=== PATIENT | female | born 1965 | race Caucasian/White ===

== ENCOUNTER 2016-10-06 08:53 | Emergency (ER) | payer MEDICAID ==
[2016-10-06 09:05] VITALS: BP 100/75
--- NOTE | 2016-10-06 10:44 | EDM.PDOC ---
ED HPI Trauma - General Chief Complaint: Lower Extremity Injury/Pain Stated Complaint: RT ANKLE/FOOT INJURY Time Seen by Provider: 10/06/16 09:10 Source: Reports: Patient, RN notes reviewed - History of Present Illness INITIAL COMMENTS - FREE TEXT/NARRATIVE: 51-year-old lady fell 2 days ago injuring her right foot and ankle. She's had swelling and pain at the lateral aspect of her foot and ankle. No significant pain at rest but she does have major discomfort with any type of weightbearing. She states that she does use a wheelchair much of the time. She also does have a walker that she does use for getting into and out of the bathroom. She denies head neck chest hip or other major injury or discomfort from this fall. Allergies/ADRs: Allergies baclofen Allergy (Verified 10/06/16 09:05) Itching cefixime [From Suprax] Allergy (Verified 10/06/16 09:05) Itching Home Medications: Ambulatory Orders Aspirin [Adult Low Dose Aspirin EC] 81 mg PO DAILY 07/22/15 [Confirmed 10/06/16] HYDROmorphone HCl [Dilaudid] 2 - 4 mg PO Q4H PRN 07/22/15 [Confirmed 10/06/16] Levothyroxine Sodium [Synthroid] 175 mcg PO DAILY 07/22/15 [Confirmed 10/06/16] traZODone 50 - 100 mg PO BEDTIME PRN 07/22/15 [Confirmed 10/06/16] Topiramate [Topamax] 25 mg PO BEDTIME #30 tablet 07/25/15 [Confirmed 10/06/16] Pramipexole [Mirapex] 1 tab PO DAILY 09/08/16 [Confirmed 10/06/16] Pregabalin [Lyrica] 150 mg PO TID 09/08/16 [Confirmed 10/06/16] Phenazopyridine [Pyridium] 100 mg PO TID #6 tablet 09/13/16 [Confirmed 10/06/16] Past Medical History Cardiovascular History: Reports: Hypertension Genitourinary History: Reports: Neurogenic bladder, 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 Most recent back surgery was in March of 2015. Pt has some post surgical complications with numbness and tingling in lower legs and unable to ambulate unless she is using a walker Neurological History: Reports: Other (see below) Other Neuro History: recent r/o meningitis from 1 MD and she states another told her that she had a stroke. Psychiatric History: Reports: Anxiety, Depression Other Psychiatric History: pt states that she feels like depression could be setting in. She states that she has had multiple medical problems this year, Denies any thoughts to hurt or harm herself Endocrine/Metabolic History: Reports: Hypothyroidism - Infectious Disease History Infectious Disease History: Reports: Chicken pox - Past Surgical History HEENT Surgical History: Reports: Tonsillectomy Social & Family History - Tobacco Use Smoking Status *Q: Current Every Day Smoker Years of Tobacco use: 25 Packs/Tins Daily: 0.5 Second Hand Smoke Exposure: No - Caffeine Use Caffeine Use: Reports: Coffee, Soda - Alcohol Use Days Per Week of Alcohol Use: 0 - Recreational Drug Use Recreational Drug Use: No - Living Situation & Occupation Occupation: disabled Review of Systems - Review of Systems Review Of Systems: See Below Constitutional: Reports: no symptoms Eyes: Reports: no symptoms Ears: Reports: no symptoms Nose: Reports: no symptoms Mouth/Throat: Reports: no symptoms Respiratory: Denies: shortness of breath Cardiovascular: Denies: chest pain GI/Abdominal: Denies: Abdominal pain, Nausea, Vomiting Musculoskeletal: Reports: foot pain (right-sided), joint pain (right ankle). Denies: neck pain, shoulder pain Neurological: Reports: difficulty walking (2 pain right ankle and right foot with weight-bearing) Trauma Exam - Physical Exam Exam: See Below General Appearance: Reports: alert, no apparent distress Head: Reports: atraumatic Eyes: bilateral eye: PERRL Ears: Reports: normal external exam Nose: Reports: normal inspection Throat/Mouth: Reports: Normal inspection Neck: Reports: full range of motion Respiratory Exam: Reports: no respiratory distress, lungs clear, normal breath sounds Cardiovascular: Reports: regular rate, rhythm Extremities: Reports: bony-point tenderness (lateral aspect of right ankle and right foot), pedal edema (there is swelling of the right foot and right ankle), other (no visible deformity) Skin: Reports: Normal color, Warm/dry ED TRAUMA EXTREMITY PROCEDURES - Splinting Right Lower Extremity Splint site: short leg right lower extremity Pre-procedure NV status: normal Post-procedure NV status: normal Splint material: fiberglass Splint design: posterior Applied & form fitted by: provider Provider post-splint application NV check: NV status normal Course - Vital Signs Last Recorded V/S: Last Vital Signs Temp 97.7 F 10/06/16 09:02 Pulse 105 H 10/06/16 09:02 Resp 16 10/06/16 09:02 BP 100/75 10/06/16 09:02 Pulse Ox 95 10/06/16 09:02 - Re-Assessments/Exams Free Text/Narrative Re-Assessment/Exam: 10/06/16 10:34x-rays of the foot are fine, x-rays of the ankle do show a hairline fracture of the distal fibula on the anterior view only, nondisplaced Departure - Departure Time of Disposition: 10:45 Disposition: Home, Self-Care 01 Condition: fair Clinical Impression: Fracture of fibula Instructions: Fibular Ankle Fracture Treated With or Without Immobilization, Adult Referrals: Chyna Guillory DO [Primary Care Provider] - Forms: ED Department Discharge Additional Instructions: you have a fracture of your distal fibula right ankle. fiberglass splint, continue to use wheelchair as much as possible, continue to use walker when getting to and from the bathroom, see Dr. Herrera Orthopedist for followup early next week, call [phone] today for appointment early next week, keep leg and foot elevated as much as possible as discussed and demonstrated
--- NOTE | 2016-10-06 15:33 | CR ---
Right foot: Four views of the right foot were obtained. Small plantar spur is again noted. Bony structures appear osteoporotic. Soft tissue swelling is noted. No fracture is appreciated within the right foot. Impression: 1. Soft tissue swelling. Incidental plantar spur. 2. No acute fracture or other abnormality is seen within the right foot. Diagnostic code #2
--- NOTE | 2016-10-06 15:33 | CR ---
Right ankle: Four views of the right ankle were obtained. Comparison: No previous ankle study. Fracture is identified within the lateral malleolus. Alignment is close to anatomic. Soft tissue swelling is noted. Bony structures are osteoporotic. Small plantar spur is seen. Impression: 1. Essentially nondisplaced lateral malleolar fracture. 2. Other findings as described above. Diagnostic code #3
== END 2016-10-06 11:20 | disposition home or self-care (01) ==
LOC: JD.ED 08:53
DX: S82.64XA Nondisplaced fracture of lateral malleolus of right fibula, initial encounter for closed fracture (principal); F32.9 Major depressive disorder, single episode, unspecified; F41.9 Anxiety disorder, unspecified; E03.9 Hypothyroidism, unspecified; F17.210 Nicotine dependence, cigarettes, uncomplicated; Z79.82 Long term (current) use of aspirin; Z79.899 Other long term (current) drug therapy; Z88.8 Allergy status to other drugs, medicaments and biological substances; Z98.890 Other specified postprocedural states; W19.XXXA Unspecified fall, initial encounter
CPT/HCPCS: 29515; 73610-26-RT; 73610-RT; 73630-26-RT; 73630-RT; 99283-25

== ENCOUNTER 2016-10-18 14:36 | Emergency (ER) | payer MEDICAID ==
--- NOTE | 2016-10-18 15:31 | EDM.PDOC ---
ED HPI RENAL/ - General Chief Complaint: Genitourinary Problem Stated Complaint: CARTER CATHETER CAME OUT Time Seen by Provider: 10/18/16 15:18 Source of Information: Reports: Patient History Limitations: Reports: No limitations - History of Present Illness INITIAL COMMENTS - FREE TEXT/NARRATIVE: Patient is a 51-year-old female who presents to the ED wishing to have the Carter catheter reinserted. Patient states she has a indwelling carter catheter due to incomplete bladder emptying and recurrent UTI's secondary to neurogenic bladder. This all started from complicated lumbar and thoracic back surgeries. States the Carter catheter accidentally fell out today. She denies any symptoms associated with UTI. She is scheduled to have suprapubic catheter placed November 01, 2016. - Related Data Allergies/ADRs: Allergies Allergy/AdvReac Type Severity Reaction Status Date / Time baclofen Allergy Itching Verified 10/18/16 14:50 cefixime [From Suprax] Allergy Itching Verified 10/18/16 14:50 Home Meds: Home Meds Aspirin [Adult Low Dose Aspirin EC] 81 mg PO DAILY 07/22/15 [History] HYDROmorphone HCl [Dilaudid] 2 - 4 mg PO Q4H PRN 07/22/15 [History] Levothyroxine Sodium [Synthroid] 175 mcg PO DAILY 07/22/15 [History] traZODone 50 - 100 mg PO BEDTIME PRN 07/22/15 [History] Topiramate [Topamax] 25 mg PO BEDTIME #30 tablet 07/25/15 [Rx] Pramipexole [Mirapex] 1 tab PO DAILY 09/08/16 [History] Pregabalin [Lyrica] 150 mg PO TID 09/08/16 [History] Phenazopyridine [Pyridium] 100 mg PO TID #6 tablet 09/13/16 [Rx] Past Medical History Cardiovascular History: Reports: Hypertension Genitourinary History: Reports: Neurogenic bladder, UTI, recurrent 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 Most recent back surgery was in March of 2015. Pt has some post surgical complications with numbness and tingling in lower legs and unable to ambulate unless she is using a walker Neurological History: Reports: Other (see below) Other Neuro History: recent r/o meningitis from 1 MD and she states another told her that she had a stroke. Psychiatric History: Reports: Anxiety, Depression Other Psychiatric History: pt states that she feels like depression could be setting in. She states that she has had multiple medical problems this year, Denies any thoughts to hurt or harm herself Endocrine/Metabolic History: Reports: Hypothyroidism - Infectious Disease History Infectious Disease History: Reports: Chicken pox - Past Surgical History HEENT Surgical History: Reports: Tonsillectomy Social & Family History - Tobacco Use Smoking Status *Q: Current Every Day Smoker Years of Tobacco use: 25 Packs/Tins Daily: 0.5 Second Hand Smoke Exposure: No - Caffeine Use Caffeine Use: Reports: Coffee, Soda - Alcohol Use Days Per Week of Alcohol Use: 0 - Recreational Drug Use Recreational Drug Use: No - Living Situation & Occupation Occupation: disabled ED ROS GENERAL - Review of Systems Review Of Systems: See Below Constitutional: Denies: fever, chills, malaise, weakness, fatigue GI/Abdominal: Denies: Abdominal pain, Nausea, Vomiting : Reports: urinary retention. Denies: pain ED EXAM, RENAL/ - Physical Exam Exam: See Below Exam Limited By: No limitations General Appearance: alert, WD/WN, no apparent distress Ears: hearing grossly normal Nose: normal inspection Throat/Mouth: Normal voice, No airway compromise Neck: normal inspection, supple Respiratory/Chest: no respiratory distress, lungs clear, normal breath sounds Cardiovascular: normal peripheral pulses, regular rate, rhythm GI/Abdominal: normal bowel sounds, soft, non tender, no organomegaly, no distention (Female) Exam: Deferred, Other (Patient wearing a diaper with dislodge carter catheter within the diaper. Leg bag attached to left lower leg.) Rectal (Female) Exam: Deferred Back Exam: normal inspection. No: CVA tenderness (L), CVA tenderness (R) Neurological: alert, oriented, CN II-XII intact, normal cognition, no motor/ sensory deficits Psychiatric: normal affect, normal mood Skin Exam: Warm, Dry, Intact, Normal color Course - Vital Signs Last Recorded V/S: Last Vital Signs Temp 98.4 F 10/18/16 16:44 Pulse 122 H 10/18/16 16:44 Resp 16 10/18/16 16:44 BP 101/56 L 10/18/16 16:44 Pulse Ox 98 10/18/16 16:44 - Orders/Labs/Meds Orders: Active Orders 24 hr Category Date Time Status Carter Catheter Insertion [Insert Urinary Catheter] [OM. Care 10/18/16 15:24 Ordered PC] Stat Urinary Catheter Assessment [RC] ASDIRECTED Care 10/18/16 15:25 Active - Re-Assessments/Exams Free Text/Narrative Re-Assessment/Exam: Ordered for reinsertion of indwelling Carter catheter to leg bag. Carter catheter was placed with no complications. Will discharge patient home with instructions as documented. Departure - Departure Time of Disposition: 15:29 Disposition: Home, Self-Care 01 Condition: good Clinical Impression: Neurogenic bladder disorder Dislodged Carter catheter Qualifiers: Encounter type: initial encounter Qualified Code(s): T83.021A - Displacement of indwelling urethral catheter, initial encounter Instructions: Carter Catheter Care, Adult Referrals: Chyna Guillory DO [Primary Care Provider] - Forms: ED Department Discharge Additional Instructions: Please keep appointment with urology for suprapubic catheter placement October. Return back to the ED if you develop any new or worsening symptoms. - My Orders Last 24 Hours: My Active Orders 10/18/16 15:24 Carter Catheter Insertion [Insert Urinary Catheter] [OM.PC] Stat 10/18/16 15:25 Urinary Catheter Assessment [RC] ASDIRECTED - Assessment/Plan Last 24 Hours: My Active Orders 10/18/16 15:24 Carter Catheter Insertion [Insert Urinary Catheter] [OM.PC] Stat 10/18/16 15:25 Urinary Catheter Assessment [RC] ASDIRECTED
[2016-10-18 16:46] VITALS: BP 101/56
== END 2016-10-18 16:40 | disposition home or self-care (01) ==
LOC: JD.ED 14:36
DX: T83.021A Displacement of indwelling urethral catheter, initial encounter (principal); N31.9 Neuromuscular dysfunction of bladder, unspecified; I10 Essential (primary) hypertension; F41.8 Other specified anxiety disorders; E03.9 Hypothyroidism, unspecified; F17.210 Nicotine dependence, cigarettes, uncomplicated; Z98.890 Other specified postprocedural states; Z79.82 Long term (current) use of aspirin; Z79.899 Other long term (current) drug therapy; Z88.1 Allergy status to other antibiotic agents; Z88.8 Allergy status to other drugs, medicaments and biological substances
CPT/HCPCS: 51702; 99282; 99283-25

== ENCOUNTER 2017-01-15 20:59 | Emergency (ER) | payer MEDICAID, OTHER ==
--- NOTE | 2017-01-15 21:46 | EDM.PDOC ---
ED HPI GENERAL MEDICAL PROBLEM - General Chief Complaint: Lower Extremity Injury/Pain Stated Complaint: POSSIBLE RIGHT BROKEN FOOT Time Seen by Provider: 01/15/17 21:35 Source of Information: Reports: Patient History Limitations: Reports: No Limitations - History of Present Illness INITIAL COMMENTS - FREE TEXT/NARRATIVE: Patient is a 51-year-old female presents to the ED complaining of right foot/ ankle pain. Patient states while walking her leg gave out she fell landing on her right foot. Her right foot was bent backwards. Pain is located in the top of her foot and also lateral/medial malleolus. Currently experiencing spasms to her right lower leg. The pain is moderate intensity. There is some mild swelling present. Patient had a back surgery in 2015 due to infection. Patient has difficulty with urinating and also with ambulating. Legs apparently give out regularly. She utilizes a walker and/or a cane. Patient had a similar injury this past September to the same foot . X-rays were obtained at that time with fractures present.Patient denies CP, SOB, LOC, head/neck pain, or new pain to her back, or any additional complaints. Right Feet Pain Score (Numeric/FACES): 10 - Related Data Allergies Allergy/AdvReac Type Severity Reaction Status Date / Time baclofen Allergy Itching Verified 10/18/16 14:50 cefixime [From Suprax] Allergy Itching Verified 10/18/16 14:50 Home Meds: Home Meds HYDROmorphone HCl [Dilaudid] 4 mg PO Q4H 07/22/15 [History] Levothyroxine Sodium [Synthroid] 175 mcg PO DAILY 07/22/15 [History] traZODone 50 - 100 mg PO BEDTIME PRN 07/22/15 [History] Topiramate [Topamax] 25 mg PO BEDTIME #30 tablet 07/25/15 [Rx] Pregabalin [Lyrica] 150 mg PO TID 09/08/16 [History] Past Medical History Cardiovascular History: Reports: Hypertension Genitourinary History: Reports: Neurogenic 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 Most recent back surgery was in March of 2015. Pt has some post surgical complications with numbness and tingling in lower legs and unable to ambulate unless she is using a walker Neurological History: Reports: Other (See Below) Other Neuro History: recent r/o meningitis from 1 MD and she states another told her that she had a stroke. Psychiatric History: Reports: Anxiety, Depression Other Psychiatric History: pt states that she feels like depression could be setting in. She states that she has had multiple medical problems this year, Denies any thoughts to hurt or harm herself Endocrine/Metabolic History: Reports: Hypothyroidism - Infectious Disease History Infectious Disease History: Reports: Chicken Pox - Past Surgical History HEENT Surgical History: Reports: Tonsillectomy Social & Family History - Tobacco Use Smoking Status *Q: Current Every Day Smoker Years of Tobacco use: 25 Packs/Tins Daily: 0.5 Second Hand Smoke Exposure: No - Caffeine Use Caffeine Use: Reports: Coffee, Soda - Alcohol Use Days Per Week of Alcohol Use: 0 - Recreational Drug Use Recreational Drug Use: No - Living Situation & Occupation Occupation: Disabled Review of Systems - Review of Systems Review Of Systems: ROS reveals no pertinent complaints other than HPI. ED EXAM, GENERAL - Physical Exam Exam: See Below Exam Limited By: No Limitations General Appearance: Alert, WD/WN, Mild Distress Eye Exam: Bilateral Eye: PERRL Ears: Hearing Grossly Normal Nose: Normal Inspection Throat/Mouth: Normal Voice, No Airway Compromise Neck: Normal Inspection, Supple Respiratory/Chest: No Respiratory Distress, No Accessory Muscle Use Cardiovascular: Normal Peripheral Pulses, Regular Rate, Rhythm Peripheral Pulses: 2+: Radial (R) Extremities: Other (mild swelling noted to the dorsal aspect of her right foot and lateral ankle. mild increased pain with palpation. No sensory deficits noted. Leg is intermittent spasm. No pain with palpation of the tibia fibula, knee, leg, and pelvis.) Neurological: Alert, Oriented, Normal Cognition, No Motor/Sensory Deficits Psychiatric: Normal Affect, Normal Mood Skin Exam: Warm, Dry, Intact, Normal Color Course - Vital Signs Last Recorded V/S: Last Vital Signs Temp 97.9 F 01/15/17 21:42 Pulse 95 01/15/17 21:42 Resp 20 01/15/17 21:42 BP 101/64 01/15/17 21:42 Pulse Ox 96 01/15/17 21:42 - Orders/Labs/Meds Orders: Active Orders 24 hr Category Date Time Status Ankle Min 3V Rt [CR] Stat Exams 01/15/17 21:42 Taken Meds: Medications Discontinued Medications Generic Name Dose Route Start Last Admin Trade Name Delta PRN Reason Stop Dose Admin Diazepam 2.5 mg 01/15/17 21:42 01/15/17 21:50 Valium IM 01/15/17 21:43 2.5 mg ONETIME ONE Administration Diazepam 2.5 mg 01/15/17 22:48 01/15/17 22:53 Valium IM 01/15/17 22:49 2.5 mg ONETIME ONE Administration - Re-Assessments/Exams Free Text/Narrative Re-Assessment/Exam: Ordered x-ray of the foot, ankle, and also by a 2.5 mg IM to reduce spasms. X-ray of the right foot/ankle revealed osteopenic bones with multiple questionable areas for fractures. [facility] will interpret. 01/15/17 22:52 Per nursing, spasms have decreased but not completely resolved. Ordered valium 2.5mg IM. [facility] interpretation is pending. x-ray of right foot impression: No acute findings. X-ray of the right ankle impression:non displaced fractures through the medial and lateral malleoli. Posterior splint applied with no complications. Patient has a wheel chair at home will discharge with instructions as documented. Departure - Departure Time of Disposition: 23:50 Disposition: Home, Self-Care 01 Condition: good Clinical Impression: Fracture, ankle closed, bimalleolar Qualifiers: Encounter type: initial encounter Laterality: right Qualified Code(s): S82.841A - Displaced bimalleolar fracture of right lower leg, initial encounter for closed fracture - Discharge Information Instructions: Ankle Fracture Referrals: PCP,None [Primary Care Provider] - Jakob Knight MD [Physician] - Forms: ED Department Discharge Additional Instructions: No weight placement on the affected ankle. Leave splint in place until evaluated by Dr. Knight orthopedic surgeon communication signals intelligence. Call and make an appointment Tuesday to be seen in one week. Elevate when able to reduce swelling and pain. Take Tylenol and ibuprofen in alternating fashion for discomfort. Take all your home medications as prescribed. Place ice to the affected ankle 4 -6 times daily, 20 minutes in duration, do not apply ice directly on the skin. Return to ED for any new or worsening symptoms. - My Orders Last 24 Hours: My Active Orders 01/15/17 21:42 Ankle Min 3V Rt [CR] Stat - Assessment/Plan Last 24 Hours: My Active Orders 01/15/17 21:42 Ankle Min 3V Rt [CR] Stat
[2017-01-15 21:47] VITALS: BP 101/64
--- NOTE | 2017-01-17 11:13 | CR ---
Right ankle: Three views of the right ankle were obtained. Comparison: Previous right ankle study of 10/06/16. Lateral malleolus fracture is seen. This is fairly similar to prior exam and uncertain if this represents refracturing or nonbridging callus. Soft tissue swelling is seen. Slight irregularity is seen within the medial malleolus which is an interval change from prior exam presumably representing nondisplaced medial malleolus fracture. Bony structures are osteopenic. Soft tissue swelling is noted. Impression: 1. Lateral malleolus fracture appearing fairly stable from prior study with discussion as noted above. 2. Possible nondisplaced medial malleolus fracture. 3. Other incidental findings. Diagnostic code #3 Agree with preliminary report issued by [facility] ([facility] preliminary report dictated on 01/16/17, 12:22 AM Central Time)
--- NOTE | 2017-01-17 11:13 | CR ---
Right foot: Two views of the right foot were obtained. Comparison: Previous right foot study of 10/06/16. Plantar spur is seen. Diffuse soft tissue swelling is noted. Bony structures are osteoporotic. Slight joint space narrowing is noted within the midfoot. No acute fracture or dislocation is seen. Mild joint space narrowing also noted within the first MTP joint. Impression: 1. Soft tissue swelling and other incidental findings. No acute bony abnormality is identified. Diagnostic code #2 Agree with preliminary report issued by [facility] ([facility] preliminary report dictated on 01/15/17, 11:57 PM Central Time)
== END 2017-01-16 00:05 | disposition home or self-care (01) ==
LOC: JD.ED 20:59
DX: S82.841A Displaced bimalleolar fracture of right lower leg, initial encounter for closed fracture (principal); I10 Essential (primary) hypertension; F41.9 Anxiety disorder, unspecified; F32.9 Major depressive disorder, single episode, unspecified; F17.210 Nicotine dependence, cigarettes, uncomplicated; E03.9 Hypothyroidism, unspecified; Z98.890 Other specified postprocedural states; Z79.899 Other long term (current) drug therapy; Z88.1 Allergy status to other antibiotic agents; Z88.8 Allergy status to other drugs, medicaments and biological substances; W19.XXXA Unspecified fall, initial encounter
CPT/HCPCS: 29515; 73610; 73620; 96372; 99283; J3360

== ENCOUNTER 2017-02-25 09:26 | Emergency (ER) | payer MEDICAID ==
[2017-02-25 09:39] VITALS: BP 121/81
--- NOTE | 2017-02-25 10:27 | EDM.PDOC ---
ED HPI GENERAL MEDICAL PROBLEM - General Chief Complaint: Genitourinary Problem Stated Complaint: CATHETER CAME OUT Time Seen by Provider: 02/25/17 09:58 Source of Information: Reports: Patient History Limitations: Reports: No Limitations - History of Present Illness INITIAL COMMENTS - FREE TEXT/NARRATIVE: The patient is a 51-year-old female with a history of an indwelling suprapubic catheter for neurogenic bladder presents to the emergency department after her catheter fell out. She states that the catheter was just replaced about a week ago at clinic. She hasn't had any trouble with it. Today it just fell out. Appears maybe the balloon was defective. No fever. No recent illness. No additional complaints. No pain. - Related Data Allergies Allergy/AdvReac Type Severity Reaction Status Date / Time baclofen Allergy Itching Verified 10/18/16 14:50 cefixime [From Suprax] Allergy Itching Verified 10/18/16 14:50 Home Meds: Home Meds HYDROmorphone HCl [Dilaudid] 4 mg PO Q4H 07/22/15 [History] Levothyroxine Sodium [Synthroid] 175 mcg PO DAILY 07/22/15 [History] traZODone 50 - 100 mg PO BEDTIME PRN 07/22/15 [History] Topiramate [Topamax] 25 mg PO BEDTIME #30 tablet 07/25/15 [Rx] Pregabalin [Lyrica] 150 mg PO TID 09/08/16 [History] Pramipexole Di-HCl [Pramipexole ER] 2.25 mg PO 5XDAY 02/25/17 [History] Past Medical History Cardiovascular History: Reports: Hypertension Genitourinary History: Reports: Neurogenic Bladder, UTI, Recurrent Other Genitourinary History: 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 Most recent back surgery was in March of 2015. Pt has some post surgical complications with numbness and tingling in lower legs and unable to ambulate unless she is using a walker Neurological History: Reports: Other (See Below) Other Neuro History: recent r/o meningitis from 1 MD and she states another told her that she had a stroke. Psychiatric History: Reports: Anxiety, Depression Other Psychiatric History: pt states that she feels like depression could be setting in. She states that she has had multiple medical problems this year, Denies any thoughts to hurt or harm herself Endocrine/Metabolic History: Reports: Hypothyroidism - Infectious Disease History Infectious Disease History: Reports: Chicken Pox - Past Surgical History HEENT Surgical History: Reports: Tonsillectomy Social & Family History - Tobacco Use Smoking Status *Q: Current Every Day Smoker Years of Tobacco use: 30 Packs/Tins Daily: 1 Second Hand Smoke Exposure: No - Caffeine Use Caffeine Use: Reports: Coffee - Alcohol Use Days Per Week of Alcohol Use: 0 - Recreational Drug Use Recreational Drug Use: No - Living Situation & Occupation Occupation: Disabled ED ROS GENERAL - Review of Systems Review Of Systems: See Below Constitutional: Denies: Fever GI/Abdominal: Denies: Abdominal Pain : Denies: Flank Pain ED EXAM, RENAL/ - Physical Exam Exam: See Below Exam Limited By: No Limitations General Appearance: Alert, WD/WN, No Apparent Distress Ears: Normal External Exam Throat/Mouth: Normal Inspection, Normal Voice Head: Atraumatic, Normocephalic Neck: Normal Inspection Respiratory/Chest: No Respiratory Distress GI/Abdominal: Soft, Non-Tender, No Distention, Other (Suprapubic catheter site is clean, dry, intact) Course - Vital Signs Last Recorded V/S: Last Vital Signs Temp 36.4 C 02/25/17 09:35 Pulse 79 02/25/17 09:35 Resp 18 02/25/17 09:35 BP 121/81 02/25/17 09:38 Pulse Ox 97 02/25/17 09:35 - Orders/Labs/Meds Orders: Active Orders 24 hr Category Date Time Status Dixon Catheter Insertion [Insert Urinary Catheter] [OM. Care 02/25/17 10:30 Ordered PC] Q24H Urinary Catheter Assessment [RC] ASDIRECTED Care 02/25/17 10:22 Active - Re-Assessments/Exams Free Text/Narrative Re-Assessment/Exam: 02/25/17 10:26 Nursing staff here to replace suprapubic catheter. Departure - Departure Time of Disposition: 10:26 Disposition: Home, Self-Care 01 Clinical Impression: Urinary catheter change required Dixon catheter problem Qualifiers: Encounter type: initial encounter Qualified Code(s): T83.9XXA - Unspecified complication of genitourinary prosthetic device, implant and graft, initial encounter - Discharge Information Instructions: Dixon Catheter Care, Adult Referrals: Chyna Guillory DO [Primary Care Provider] - Forms: ED Department Discharge Additional Instructions: 1. Follow-up with your clinic provider as needed 2. Return to the emergency department for abdominal pain, fever, or other concerning symptoms - My Orders Last 24 Hours: My Active Orders 02/25/17 10:22 Urinary Catheter Assessment [RC] ASDIRECTED 02/25/17 10:30 Dixon Catheter Insertion [Insert Urinary Catheter] [OM.PC] Q24H - Assessment/Plan Last 24 Hours: My Active Orders 02/25/17 10:22 Urinary Catheter Assessment [RC] ASDIRECTED 02/25/17 10:30 Dixon Catheter Insertion [Insert Urinary Catheter] [OM.PC] Q24H
== END 2017-02-25 10:44 | disposition home or self-care (01) ==
LOC: JD.ED 09:26
DX: Z46.6 Encounter for fitting and adjustment of urinary device (principal); I10 Essential (primary) hypertension; F41.9 Anxiety disorder, unspecified; F32.9 Major depressive disorder, single episode, unspecified; E03.9 Hypothyroidism, unspecified; F17.210 Nicotine dependence, cigarettes, uncomplicated; Z87.440 Personal history of urinary (tract) infections; Z88.8 Allergy status to other drugs, medicaments and biological substances; Z79.899 Other long term (current) drug therapy; Z98.890 Other specified postprocedural states
CPT/HCPCS: 51702; 99282; 99283-25

== ENCOUNTER 2017-03-21 12:25 | Inpatient (IN) | payer MEDICAID, SELFPAY ==
[2017-03-21] MEDS ORDERED: Sodium Chloride 0.9% 10 ML Syringe FLUSH PRN (12:40)
--- NOTE | 2017-03-21 14:33 | EDM.PDOC ---
ED HPI GENERAL MEDICAL PROBLEM - General Chief Complaint: Abdominal Pain Stated Complaint: [facility] Time Seen by Provider: 03/21/17 12:43 Source of Information: Reports: Patient History Limitations: Reports: No Limitations - History of Present Illness INITIAL COMMENTS - FREE TEXT/NARRATIVE: 51 year old female arrives via the ambulance service for evaluation and treatment of lower abdominal pain and cramping. The patient is wheelchair bound after a bad back surgery. She has a suprapubic indwelling catheter that appears to have come out. Unclear exactly when the catheter feel out. At first the patient reports the catheter fell out today. Then reports the catheter feel out a few days ago. Patient is currently complaining of lower abdominal pain and cramping. She denies any chest pain, shortness of breath, fevers, nausea or vomiting. Patient is unable to correctly state month, day and year. She is orientated to person and place. Patient is incontinent to stool upon arrival to ED. Daughter is coming to the hospital. Per EMS report daughter stated that the patient is more confused than normal. Reportedly the patient lives at home and her , who works during the day, is her primary care provider. - Related Data Allergies Allergy/AdvReac Type Severity Reaction Status Date / Time baclofen Allergy Itching Verified 03/21/17 12:59 cefixime [From Suprax] Allergy Itching Verified 03/21/17 12:59 Home Meds: Home Meds Cyclobenzaprine [Flexeril] 10 mg PO BEDTIME PRN 03/21/17 [History] HYDROmorphone [Dilaudid] 4 mg PO Q4H PRN 03/21/17 [History] Levothyroxine Sodium [Synthroid] 125 mcg PO DAILY 03/21/17 [History] Pramipexole Di-HCl [Mirapex] 0.25 mg PO 5XDAY 03/21/17 [History] Pregabalin [Lyrica] 150 mg PO Q8H 03/21/17 [History] traZODone HCl [Trazodone HCl] 50 - 100 mg PO BEDTIME 03/21/17 [History] Cyclobenzaprine [Flexeril] 10 mg PO BEDTIME PRN 03/22/17 [History] Topiramate [Topamax] 25 mg PO BEDTIME 03/22/17 [History] Past Medical History Cardiovascular History: Reports: Hypertension Genitourinary History: Reports: Neurogenic Bladder, UTI, Recurrent 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 Most recent back surgery was in March of 2015. Pt has some post surgical complications with numbness and tingling in lower legs and unable to ambulate unless she is using a walker Neurological History: Reports: Other (See Below) Other Neuro History: recent r/o meningitis from 1 MD and she states another told her that she had a stroke. Psychiatric History: Reports: Anxiety, Depression Other Psychiatric History: pt states that she feels like depression could be setting in. She states that she has had multiple medical problems this year, Denies any thoughts to hurt or harm herself Endocrine/Metabolic History: Reports: Hypothyroidism - Infectious Disease History Infectious Disease History: Reports: Chicken Pox, Measles - Past Surgical History HEENT Surgical History: Reports: Tonsillectomy Social & Family History - Tobacco Use Smoking Status *Q: Current Every Day Smoker Years of Tobacco use: 30 Packs/Tins Daily: 2 Used Tobacco, but Quit: No Second Hand Smoke Exposure: No - Caffeine Use Caffeine Use: Reports: Coffee - Alcohol Use Days Per Week of Alcohol Use: 0 - Recreational Drug Use Recreational Drug Use: No - Living Situation & Occupation Occupation: Disabled ED ROS GENERAL - Review of Systems Review Of Systems: See Below Constitutional: Denies: Fever Respiratory: Denies: Shortness of Breath Cardiovascular: Denies: Chest Pain GI/Abdominal: Reports: Abdominal Pain (lower abdominal pain and cramping), Other (suprapubic cathater currently out ). Denies: Nausea, Vomiting : Reports: Other (suprapubic cathater fell out, unknown time) Neurological: Reports: Confusion Psychiatric: Reports: Hallucinations (per daughter) ED EXAM, RENAL/ - Physical Exam Exam: See Below Exam Limited By: No Limitations General Appearance: Alert, WD/WN, No Apparent Distress, Obese Eye Exam: Bilateral Eye: PERRL Ears: Normal External Exam Throat/Mouth: Normal Inspection, Normal Voice, No Airway Compromise Respiratory/Chest: No Respiratory Distress, Lungs Clear, Normal Breath Sounds Cardiovascular: Normal Peripheral Pulses, Regular Rate, Rhythm, No Murmur GI/Abdominal: Soft, Tender (suprapubic cathater removed; tenderness to that area ) Neurological: Alert, Oriented (to persons nad place but not month, day or year) , Confused Psychiatric: Normal Mood, Flat Affect Skin Exam: Warm, Dry, Normal Color Course - Vital Signs Last Recorded V/S: Last Vital Signs Temp 36.6 C 03/24/17 08:04 Pulse 87 03/24/17 08:04 Resp 18 03/24/17 08:04 BP 106/64 03/24/17 08:04 Pulse Ox 96 03/24/17 08:04 - Orders/Labs/Meds Orders: Medication Orders Cyclobenzaprine HCl (Flexeril) 10 mg PO BEDTIME PRN PRN Reason: Pain Last Admin: 03/23/17 21:25 Dose: 10 mg Admin: 03/23/17 03:29 Dose: 10 mg Admin: 03/21/17 22:24 Dose: 10 mg Ceftriaxone Sodium 2 gm/ (Sodium Chloride) 100 mls @ 200 mls/hr IV Q24H [facility] Last Admin: 03/24/17 11:31 Dose: 200 mls/hr Infusion: 03/23/17 12:19 Dose: 200 mls/hr Admin: 03/23/17 11:49 Dose: 200 mls/hr Infusion: 03/22/17 11:44 Dose: 200 mls/hr Admin: 03/22/17 11:14 Dose: 200 mls/hr Levothyroxine Sodium (Levothyroxine) 150 mcg PO ACBREAKFAST [facility] Last Admin: 03/24/17 06:29 Dose: 150 mcg Lorazepam (Ativan) 1 mg IVPUSH Q6H PRN PRN Reason: Anxiety Last Admin: 03/22/17 00:44 Dose: 1 mg Miscellaneous Information (Remove Patch) 0 ea TRDERM DAILY [facility] Last Admin: 03/24/17 08:48 Dose: Not Given Morphine Sulfate (Morphine) 1 mg IVPUSH Q6H PRN PRN Reason: Pain (moderate 4-6) Nicotine (Habitrol) 21 mg TRDERM DAILY [facility] Last Admin: 03/24/17 08:48 Dose: Not Given Admin: 03/23/17 12:56 Dose: Not Given Pramipexole Dihydrochloride (Mirapex) 0.25 mg PO 5XDAY [facility] Last Admin: 03/24/17 13:07 Dose: 0.25 mg Admin: 03/24/17 09:00 Dose: 0.25 mg Admin: 03/24/17 06:30 Dose: 0.25 mg Admin: 03/23/17 21:25 Dose: 0.25 mg Admin: 03/23/17 18:15 Dose: 0.25 mg Admin: 03/23/17 14:34 Dose: 0.25 mg Admin: 03/23/17 09:36 Dose: 0.25 mg Admin: 03/23/17 06:21 Dose: 0.25 mg Admin: 03/22/17 21:03 Dose: 0.25 mg Admin: 03/22/17 17:08 Dose: 0.25 mg Admin: 03/22/17 14:24 Dose: 0.25 mg Admin: 03/22/17 09:09 Dose: Admin: 03/22/17 08:43 Dose: 0.25 mg Admin: 03/22/17 06:08 Dose: 0.25 mg Admin: 03/21/17 22:24 Dose: 0.25 mg Pregabalin (Lyrica) 150 mg PO Q8H [facility] Last Admin: 03/24/17 13:07 Dose: 150 mg Admin: 03/24/17 06:29 Dose: 150 mg Admin: 03/23/17 21:25 Dose: 150 mg Admin: 03/23/17 12:16 Dose: 150 mg Admin: 03/23/17 04:40 Dose: 150 mg Admin: 03/22/17 21:03 Dose: 150 mg Admin: 03/22/17 14:24 Dose: 150 mg Admin: 03/22/17 06:08 Dose: 150 mg Admin: 03/21/17 22:24 Dose: 150 mg Saccharomyces Boulardii (Florastor) 250 mg PO BID [facility] Last Admin: 03/24/17 08:49 Dose: 250 mg Admin: 03/23/17 21:25 Dose: 250 mg Admin: 03/23/17 14:34 Dose: 250 mg Sodium Chloride (Saline Flush) 10 ml FLUSH ASDIRECTED PRN PRN Reason: Keep Vein Open Last Admin: 03/21/17 13:02 Dose: 10 ml Trazodone HCl (Trazodone) 50 mg PO BEDTIME PRN PRN Reason: INSOMNIA Last Admin: 03/23/17 21:25 Dose: 50 mg Admin: 03/21/17 22:24 Dose: 50 mg Labs: Laboratory Tests 03/21/17 03/21/17 03/21/17 Range/Units 12:58 12:58 12:58 WBC 10.96 H (3.98-10.04) K/mm3 RBC 4.59 (3.98-5.22) M/mm3 Hgb 12.8 (11.2-15.7) gm/L Hct 39.5 (34.1-44.9) % MCV 86.1 (79.4-94.8) fl MCH 27.9 (25.6-32.2) pg MCHC 32.4 (32.2-35.5) g/dl RDW Std Deviation 48.1 H (36.4-46.3) fL Plt Count 347 (182-369) K/mm3 MPV 10.1 (9.4-12.3) fl Neutrophils % (Manual) 76 H (40-60) % Band Neutrophils % 2 (0-10) % Lymphocytes % (Manual) 15 L (20-40) % Atypical Lymphs % 0 % Monocytes % (Manual) 6 (2-10) % Eosinophils % (Manual) 1 (0.7-5.8) % Basophils % (Manual) 0 L (0.1-1.2) Platelet Estimate Adequate RBC Morph Comment Normal Sodium 140 (136-145) mEq/L Potassium 4.1 (3.5-5.1) mEq/L Chloride 106 (98-107) mEq/L Carbon Dioxide 25 (21-32) mEq/L Anion Gap 13.1 (5-15) BUN 25 H (7-18) mg/dL Creatinine 1.7 H (0.55-1.02) mg/dL Est Cr Clr Drug Dosing TNP Estimated GFR (MDRD) 31 (>60) mL/min BUN/Creatinine Ratio 14.7 (14-18) Glucose 93 (74-106) mg/dL Lactic Acid 0.9 (0.4-2.0) mmol/L Calcium 9.1 (8.5-10.1) mg/dL Total Bilirubin 0.6 (0.2-1.0) mg/dL AST 26 (15-37) U/L ALT 35 (14-59) U/L Alkaline Phosphatase 166 H (46-116) U/L C-Reactive Protein 11.1 H* (<1.0) mg/dL Total Protein 7.7 (6.4-8.2) g/dl Albumin 2.8 L (3.4-5.0) g/dl Globulin 4.9 gm/dL Albumin/Globulin Ratio 0.6 L (1-2) Urine Color (Yellow) Urine Appearance (Clear) Urine pH (5.0-8.0) Ur Specific [place] (1.005-1.030) Urine Protein (Negative) Urine Glucose (UA) (Negative) Urine Ketones (Negative) Urine Occult Blood (Negative) Urine Nitrite (Negative) Urine Bilirubin (Negative) Urine Urobilinogen (0.2-1.0) Ur Leukocyte Esterase (Negative) Urine RBC (0-5) /hpf Urine WBC (0-5) /hpf Ur Epithelial Cells (0-5) /hpf Urine Bacteria (FEW) /hpf Urine Mucus (FEW) /hpf Urine Yeast (NOT SEEN) 03/21/17 Range/Units 15:30 WBC (3.98-10.04) K/mm3 RBC (3.98-5.22) M/mm3 Hgb (11.2-15.7) gm/L Hct (34.1-44.9) % MCV (79.4-94.8) fl MCH (25.6-32.2) pg MCHC (32.2-35.5) g/dl RDW Std Deviation (36.4-46.3) fL Plt Count (182-369) K/mm3 MPV (9.4-12.3) fl Neutrophils % (Manual) (40-60) % Band Neutrophils % (0-10) % Lymphocytes % (Manual) (20-40) % Atypical Lymphs % % Monocytes % (Manual) (2-10) % Eosinophils % (Manual) (0.7-5.8) % Basophils % (Manual) (0.1-1.2) Platelet Estimate RBC Morph Comment Sodium (136-145) mEq/L Potassium (3.5-5.1) mEq/L Chloride (98-107) mEq/L Carbon Dioxide (21-32) mEq/L Anion Gap (5-15) BUN (7-18) mg/dL Creatinine (0.55-1.02) mg/dL Est Cr Clr Drug Dosing Estimated GFR (MDRD) (>60) mL/min BUN/Creatinine Ratio (14-18) Glucose (74-106) mg/dL Lactic Acid (0.4-2.0) mmol/L Calcium (8.5-10.1) mg/dL Total Bilirubin (0.2-1.0) mg/dL AST (15-37) U/L ALT (14-59) U/L Alkaline Phosphatase (46-116) U/L C-Reactive Protein (<1.0) mg/dL Total Protein (6.4-8.2) g/dl Albumin (3.4-5.0) g/dl Globulin gm/dL Albumin/Globulin Ratio (1-2) Urine Color Yellow (Yellow) Urine Appearance Cloudy H (Clear) Urine pH 6.0 (5.0-8.0) Ur Specific [place] > or = 1.030 (1.005-1.030) Urine Protein 2+ H (Negative) Urine Glucose (UA) Negative (Negative) Urine Ketones 2+ H (Negative) Urine Occult Blood 3+ H (Negative) Urine Nitrite Positive H (Negative) Urine Bilirubin 1+ H (Negative) Urine Urobilinogen 0.2 (0.2-1.0) Ur Leukocyte Esterase 3+ H (Negative) Urine RBC 20-30 H (0-5) /hpf Urine WBC Too numerous to cnt H (0-5) /hpf Ur Epithelial Cells Not seen (0-5) /hpf Urine Bacteria Many H (FEW) /hpf Urine Mucus Not seen (FEW) /hpf Urine Yeast Not seen (NOT SEEN) Meds: Medications Generic Name Dose Route Start Last Admin Trade Name Freq PRN Reason Stop Dose Admin Cyclobenzaprine HCl 10 mg 03/21/17 20:15 03/23/17 21:25 Flexeril PO 10 mg BEDTIME PRN Administration Pain Ceftriaxone Sodium 2 gm/ 100 mls @ 200 mls/hr 03/22/17 11:00 03/24/17 11:31 Sodium Chloride IV 200 mls/hr Q24H [facility] Administration Levothyroxine Sodium 150 mcg 03/23/17 09:13 03/24/17 06:29 Levothyroxine PO 150 mcg ACBREAKFAST [facility] Administration Lorazepam 1 mg 03/21/17 20:17 03/22/17 00:44 Ativan IVPUSH 1 mg Q6H PRN Administration Anxiety Miscellaneous Information 0 ea 03/24/17 09:00 03/24/17 08:48 Remove Patch TRDERM Not Given DAILY [facility] Morphine Sulfate 1 mg 03/21/17 20:25 Morphine IVPUSH Q6H PRN Pain (moderate 4-6) Nicotine 21 mg 03/23/17 13:00 03/24/17 08:48 Habitrol TRDERM Not Given DAILY [facility] Pramipexole Dihydrochloride 0.25 mg 03/21/17 22:00 03/24/17 13:07 Mirapex PO 0.25 mg 5XDAY [facility] Administration Pregabalin 150 mg 03/21/17 21:00 03/24/17 13:07 Lyrica PO 150 mg Q8H [facility] Administration Saccharomyces Boulardii 250 mg 03/23/17 14:00 03/24/17 08:49 Florastor PO 250 mg BID [facility] Administration Sodium Chloride 10 ml 03/21/17 12:40 03/21/17 13:02 Saline Flush FLUSH 10 ml ASDIRECTED PRN Administration Keep Vein Open Trazodone HCl 50 mg 03/21/17 20:30 03/23/17 21:25 Trazodone PO 50 mg BEDTIME PRN Administration INSOMNIA Discontinued Medications Generic Name Dose Route Start Last Admin Trade Name Freq PRN Reason Stop Dose Admin Sodium Chloride 1,000 mls @ 999 mls/hr 03/21/17 15:49 03/21/17 16:00 Normal Saline IV 03/21/17 16:49 999 mls/hr ONETIME ONE Administration Levofloxacin/Dextrose 500 mg/ 100 mls @ 100 mls/hr 03/21/17 16:53 03/21/17 17 :00 Premix IV 03/21/17 17:52 100 mls/hr ONETIME ONE Administration Sodium Chloride 1,000 mls @ 75 mls/hr 03/21/17 18:18 03/22/17 01:32 Normal Saline IV 03/22/17 07:37 75 mls/hr ONETIME ONE Administration Sodium Chloride 1,000 mls @ 999 mls/hr 03/21/17 20:22 03/22/17 00:30 Normal Saline IV 03/21/17 21:22 999 mls/hr ONETIME ONE Administration Sodium Chloride Confirm 03/22/17 01:24 03/22/17 01:31 Normal Saline Administered 03/22/17 01:25 Not Given Dose 1,000 mls @ as directed .ROUTE .STK-MED ONE Magnesium Sulfate 2 gm/ Premix 50 mls @ 25 mls/hr 03/23/17 09:11 03/23/17 09: 35 IV 03/23/17 11:10 25 mls/hr ONETIME ONE Administration Levothyroxine Sodium 125 mcg 03/22/17 06:00 03/23/17 06:21 Levothyroxine PO 125 mcg ACBREAKFAST [facility] Administration Lorazepam 1 mg 03/21/17 15:49 03/21/17 16:00 Ativan IVPUSH 03/21/17 15:50 1 mg ONETIME ONE Administration Potassium Chloride 40 meq 03/23/17 09:11 03/23/17 09:36 Potassium Chloride PO 03/23/17 09:12 40 meq ONETIME ONE Administration - Re-Assessments/Exams Free Text/Narrative Re-Assessment/Exam: 03/21/17 16:40 Upon arrival to the ER the suprapubic catheter was out. Unclear exactly how long the catheter had been out for. Nursing staff attempted to replace the catheter but were unsuccessful, attempted to place a 20f, which is what the patient uses at home. I asked them to bladder scan the patient and she had about 400mls in her bladder. Catheter likely fell out today. Daughter reports patient's witnessed the catheter in place this morning. I asked Dr. Smith to assist with catheter placement. He was able to successfully place a 24f catheter after failing to place the 20f. At this point labs have returned. Of note, wbc is elevated at 10.96 with 2% bands, CRP is elevated at 11.1 and creatinine is elevated at 1.7. Patient dose have a UTI evident by 2+ ketones, 3+ blood, + nitrites, 1+ bili and 3+ leuks on UA. Blood and urine cultures are pending. Will start levaquin in the ED. Discussed disposition with the daughter. Daughter feels she is unsafe to go home and feels she should be admitted to the hospital. 03/21/17 17:12 Daughter reports patient is hallucinating. Harriett states the patient is " saying a bunch of weird stuff". When I ask for examples Harriett talks about the patient talking about spiders in the room. Harriett, daughter, available at [phone] Williamson, hospitalist, regarding this patient. She asks we have social work come and see the patient here in the ER. 03/21/17 18:50 Plan is to admit to the hospital for UTI wiht altered mental status. Departure - Departure Time of Disposition: 18:45 Disposition: Admitted As Inpatient 64 Condition: Poor Clinical Impression: Suprapubic catheter Dislodged Dixon catheter Qualifiers: Encounter type: initial encounter Qualified Code(s): T83.021A - Displacement of indwelling urethral catheter, initial encounter Opioid dependence Qualifiers: Substance use status: with unspecified opioid-induced disorder Qualified Code(s ): F11.29 - Opioid dependence with unspecified opioid-induced disorder - Discharge Information
[2017-03-21] MEDS ORDERED: LORazepam 2 MG/ML MDV IVPUSH ONE (15:49)
[2017-03-21] MEDS ORDERED: Sodium Chloride 0.9% 1,000 ML IV ONE ×2 (15:49→20:22)
[2017-03-21] MEDS ORDERED: Levofloxacin/Dextrose 5%-Water 500 MG in Premix Bag 1 BAG IV ONE (16:53)
[2017-03-21] MEDS: Sodium Chloride 0.9% 1,000 ML IV ONE (18:34)
--- NOTE | 2017-03-21 19:58 | PCM.HP ---
H&P History of Present Illness - General Date of Service: 03/21/17 Admit Problem/Dx: Admission Diagnosis/Problem Admission Diagnosis/Problem Urinary tract infection Source of Information: Provider History Limitations: Reports: No Limitations - History of Present Illness Initial Comments - Free Text/Narative: 51 year old female with PMH of neurogenic bladder, has a suprapubic catheter which reportedly "just came out" with no coherent explanation. She has had recurrent UTIs, and is seen on the day of admission, without the indwelling catheter as well as a UTI. She complains of lower abdominal pain. She requires a wheelchair for mobility. Denies additional complaints. Has been seen in the ED by SW to initiate appropriate discharge after the treatment for the UTI. Onset of Symptoms: Reports: Unknown/Unsure Duration of Symptoms: Reports: Day(s):, Getting Worse Location: Reports: Abdomen Quality: Reports: Same as Previous Episode Severity: Moderate Associated Symptoms: Reports: Confusion, Loss of Appetite, Weakness - Related Data Allergies/Adverse Reactions: Allergies Allergy/AdvReac Type Severity Reaction Status Date / Time baclofen Allergy Itching Verified 03/21/17 12:59 cefixime [From Suprax] Allergy Itching Verified 03/21/17 12:59 Home Medications: Home Meds Cyclobenzaprine [Flexeril] 10 mg PO BEDTIME PRN 03/21/17 [History] HYDROmorphone [Dilaudid] 4 mg PO Q4H PRN 03/21/17 [History] Levothyroxine Sodium [Synthroid] 125 mcg PO DAILY 03/21/17 [History] Pramipexole Di-HCl [Mirapex] 0.25 mg PO DAY 03/21/17 [History] Pregabalin [Lyrica] 150 mg PO Q8H 03/21/17 [History] traZODone HCl [Trazodone HCl] 50 - 100 mg PO BEDTIME 03/21/17 [History] Cyclobenzaprine [Flexeril] 10 mg PO BEDTIME PRN 03/22/17 [History] Topiramate [Topamax] 25 mg PO BEDTIME 03/22/17 [History] Past Medical History Cardiovascular History: Reports: Hypertension Genitourinary History: Reports: Neurogenic Bladder, UTI, Recurrent Other Genitourinary History: suprapubic catheter [employer] P[employer] History: Reports: Musculoskeletal History: Reports: Back Pain, Chronic, Fracture Other Musculoskeletal History: 3 back surgeries. Most recent back surgery was in March of 2015. Pt has some post surgical complications with numbness and tingling in lower legs and unable to ambulate unless she is using a walker Neurological History: Reports: Other (See Below) Other Neuro History: recent r/o meningitis from 1 MD and she states another told her that she had a stroke. Psychiatric History: Reports: Anxiety, Depression Other Psychiatric History: pt states that she feels like depression could be setting in. She states that she has had multiple medical problems this year, Denies any thoughts to hurt or harm herself Endocrine/Metabolic History: Reports: Hypothyroidism - Infectious Disease History Infectious Disease History: Reports: Chicken Pox, Measles - Past Surgical History HEENT Surgical History: Reports: Tonsillectomy Social & Family History - Tobacco Use Smoking Status *Q: Current Every Day Smoker Years of Tobacco use: 30 Packs/Tins Daily: 2 Used Tobacco, but Quit: No Second Hand Smoke Exposure: No - Caffeine Use Caffeine Use: Reports: Coffee - Alcohol Use Days Per Week of Alcohol Use: 0 - Recreational Drug Use Recreational Drug Use: No - Living Situation & Occupation Occupation: Disabled H&P Review of Systems - Review of Systems: Review Of Systems: See Below General: Reports: Malaise, Weakness, Fatigue, Decreased Appetite HEENT: Reports: No Symptoms Pulmonary: Reports: No Symptoms Cardiovascular: Reports: No Symptoms Gastrointestinal: Reports: Abdominal Pain Genitourinary: Reports: No Symptoms Musculoskeletal: Reports: No Symptoms Skin: Reports: No Symptoms Psychiatric: Reports: Confusion Neurological: Reports: Confusion, Dizziness Hematologic/Lymphatic: Reports: No Symptoms Immunologic: Reports: No Symptoms Exam - Exam Exam: See Below - Vital Signs Vital Signs: Last Vital Signs Temp 37.9 C 03/21/17 18:56 Pulse 88 03/21/17 18:57 Resp 20 03/21/17 18:56 BP 127/66 03/21/17 18:57 Pulse Ox 95 03/21/17 18:57 Weight: 77.111 kg - Exam Quality Assessment: Urinary Catheter General: Alert, Oriented HEENT: EOMI, Nares Patent, Normal Nasal Septum, Pupils Equal, Pupils Reactive, PERRLA Neck: Supple, Trachea Midline Lungs: Normal Respiratory Effort Cardiovascular: Regular Rate, Regular Rhythm GI/Abdominal Exam: Normal Bowel Sounds, Soft, Non-Tender, No Organomegaly, No Distention (Female) Exam: Deferred Rectal (Female) Exam: Deferred Back Exam: Normal Inspection Extremities: Normal Inspection, Slow Capillary Refill Skin: Warm Neurological: Cranial Nerves Intact Neuro Extensive - Mental Status: Alert Neuro Extensive - Motor, Sensory, Reflexes: CN II-XII Intact Psychiatric: Alert - Patient Data Result Diagrams: 03/22/17 07:30 03/22/17 07:30 *Q Meaningful Use (ADM) - VTE *Q VTE Criteria *Q: - Stroke *Q Stroke Criteria *Q: - AMI *Q AMI Criteria *Q: - Problem List (1) Hypertension SNOMED Code(s): 34574582 ICD Code: I10 - ESSENTIAL (PRIMARY) HYPERTENSION Status: Acute Current Visit: Yes (2) Recurrent UTI SNOMED Code(s): 517381595 ICD Code: N39.0 - URINARY TRACT INFECTION, SITE NOT SPECIFIED Status: Acute Current Visit: Yes (3) Suprapubic catheter SNOMED Code(s): 698750262, 344558973 ICD Code: Z93.59 - OTHER CYSTOSTOMY STATUS Status: Acute Current Visit: Yes (4) Anxiety SNOMED Code(s): 79800977 ICD Code: F41.9 - ANXIETY DISORDER, UNSPECIFIED Status: Acute Current Visit: Yes (5) Depression SNOMED Code(s): 97917557 ICD Code: F32.9 - MAJOR DEPRESSIVE DISORDER, SINGLE EPISODE, UNSPECIFIED Status: Acute Current Visit: Yes (6) Hypothyroid SNOMED Code(s): 33844166 ICD Code: E03.9 - HYPOTHYROIDISM, UNSPECIFIED Status: Acute Current Visit : Yes (7) Dehydration SNOMED Code(s): 82944387 ICD Code: E86.0 - DEHYDRATION Status: Acute Current Visit: No (8) Dislodged Dixon catheter SNOMED Code(s): 51850300 ICD Code: T83.021A - DISPLACEMENT OF INDWELLING URETHRAL CATHETER, INIT Status: Acute Current Visit: No Qualifiers: Encounter type: initial encounter Qualified Code(s): T83.021A - Displacement of indwelling urethral catheter, initial encounter (9) Dixon catheter problem SNOMED Code(s): 318908899 ICD Code: T83.9XXA - UNSP COMPLICATION OF GENITOURINARY PROSTH DEV/GRFT, INIT Status: Acute Current Visit: No Qualifiers: Encounter type: initial encounter Qualified Code(s): T83.9XXA - Unspecified complication of genitourinary prosthetic device, implant and graft, initial encounter (10) Neurogenic bladder disorder SNOMED Code(s): 967488344 ICD Code: N31.9 - NEUROMUSCULAR DYSFUNCTION OF BLADDER, UNSPECIFIED Status : Acute Current Visit: No Problem List Initiated/Reviewed/Updated: Yes Orders Last 24hrs: Active Orders 24 hr Category Date Time Status Admission Status [Patient Status] [ADT] Routine ADT 03/21/17 18:45 Active Sodium Chloride 0.9% [Normal Saline] 1,000 ml Med 03/21/17 18:18 Active IV ONETIME Medication Orders Sodium Chloride (Normal Saline) 1,000 mls @ 75 mls/hr IV ONETIME ONE Stop: 03/22/17 07:37 Last Admin: 03/21/17 18:34 Dose: 75 mls/hr Sodium Chloride (Saline Flush) 10 ml FLUSH ASDIRECTED PRN PRN Reason: Keep Vein Open Last Admin: 03/21/17 13:02 Dose: 10 ml Assessment/Plan Comment:: Impression: AUTI, history of recurrent UTIs; removal of suprapubic catheter Neurogenic bladder Acute mental status change Chronic HLD HTN Depression/Anxiety Hypothyroidism Tobacco dependence Plan: IVF ATBs Home meds CM/PT/OT DVT/GI prophylaxis
[2017-03-21] MEDS ORDERED: LORazepam 2 MG/ML MDV IVPUSH PRN (20:17)
[2017-03-21] MEDS: Cyclobenzaprine 10 MG Tab PO PRN (22:24)
[2017-03-21] MEDS: Pregabalin 75 MG Cap PO SCH (22:24)
[2017-03-21] MEDS: traZODone 50 MG Tab PO PRN (22:24)
[2017-03-21] MEDS: Pramipexole 0.25 MG Tab PO SCH (22:24)
[2017-03-22] MEDS ORDERED: Sodium Chloride 0.9% 1,000 ML ONE (01:24)
[2017-03-22] MEDS: Sodium Chloride 0.9% 1,000 ML IV ONE (01:32)
[2017-03-22] MEDS: Pramipexole 0.25 MG Tab PO SCH ×6 (06:08→21:03)
[2017-03-22] MEDS: Levothyroxine 125 MCG Tab PO SCH (06:08)
[2017-03-22] MEDS: Pregabalin 75 MG Cap PO SCH ×3 (06:08→21:03)
[2017-03-22] MEDS: cefTRIAXone 2 GM in Sodium Chloride 0.9% 100 ML IV SCH (11:14)
--- NOTE | 2017-03-22 19:59 | PCM.PN ---
- General Info Date of Service: 03/22/17 Functional Status: Reports: Pain Controlled, Tolerating Diet - Review of Systems General: Reports: Weakness HEENT: Reports: No Symptoms Pulmonary: Reports: No Symptoms Cardiovascular: Reports: No Symptoms Gastrointestinal: Reports: No Symptoms Genitourinary: Reports: No Symptoms Musculoskeletal: Reports: No Symptoms Skin: Reports: No Symptoms Neurological: Reports: Difficulty Walking, Weakness Psychiatric: Reports: No Symptoms - Patient Data Vitals - Most Recent: Last Vital Signs Temp 36.4 C 03/22/17 19:13 Pulse 77 03/22/17 19:13 Resp 18 03/22/17 19:13 BP 102/68 03/22/17 19:13 Pulse Ox 95 03/22/17 19:13 Weight - Most Recent: 77.111 kg I&O - Last 24 Hours: Intake & Output 03/22/17 03/22/17 03/22/17 06:59 14:59 22:59 Intake Total 2827 240 1100 Output Total 1600 1450 Balance 1227 240 -350 Lab Results Last 24 Hours: Laboratory Results - last 24 hr 03/22/17 03/22/17 Range/Units 07:30 07:30 WBC 8.71 (3.98-10.04) K/mm3 RBC 4.44 (3.98-5.22) M/mm3 Hgb 12.5 (11.2-15.7) gm/L Hct 38.2 (34.1-44.9) % MCV 86.0 (79.4-94.8) fl MCH 28.2 (25.6-32.2) pg MCHC 32.7 (32.2-35.5) g/dl RDW Std Deviation 48.7 H (36.4-46.3) fL Plt Count 288 (182-369) K/mm3 MPV 10.0 (9.4-12.3) fl Neut % (Auto) 78.0 H (34.0-71.1) % Lymph % (Auto) 16.0 L (19.3-51.7) % [place] % (Auto) 4.7 (4.7-12.5) % Eos % (Auto) 0.1 L (0.7-5.8) Baso % (Auto) 0.2 (0.1-1.2) % Neut # (Auto) 6.79 H (1.56-6.13) K/mm3 Lymph # (Auto) 1.39 (1.18-3.74) K/mm3 [place] # (Auto) 0.41 H (0.24-0.36) K/mm3 Eos # (Auto) 0.01 L (0.04-0.36) K/mm3 Baso # (Auto) 0.02 (0.01-0.08) K/mm3 Sodium 139 (136-145) mEq/L Potassium 3.8 (3.5-5.1) mEq/L Chloride 107 (98-107) mEq/L Carbon Dioxide 19 L (21-32) mEq/L Anion Gap 16.8 H (5-15) BUN 21 H (7-18) mg/dL Creatinine 1.5 H (0.55-1.02) mg/dL Est Cr Clr Drug Dosing 45.33 mL/min Estimated GFR (MDRD) 36 (>60) mL/min BUN/Creatinine Ratio 14.0 (14-18) Glucose 70 L (74-106) mg/dL Calcium 8.7 (8.5-10.1) mg/dL Magnesium 1.9 (1.8-2.4) mg/dl C-Reactive Protein 9.6 H* (<1.0) mg/dL TSH 3rd Generation 10.294 H (0.358-3.74) uIU/mL Med Orders - Current: Current Medications Cyclobenzaprine HCl (Flexeril) 10 mg PO BEDTIME PRN PRN Reason: Pain Last Admin: 03/21/17 22:24 Dose: 10 mg Ceftriaxone Sodium 2 gm/ (Sodium Chloride) 100 mls @ 200 mls/hr IV Q24H [facility] Last Admin: 03/22/17 11:14 Dose: 200 mls/hr Levothyroxine Sodium (Levothyroxine) 125 mcg PO ACBREAKFAST [facility] Last Admin: 03/22/17 06:08 Dose: 125 mcg Lorazepam (Ativan) 1 mg IVPUSH Q6H PRN PRN Reason: Anxiety Last Admin: 03/22/17 00:44 Dose: 1 mg Morphine Sulfate (Morphine) 1 mg IVPUSH Q6H PRN PRN Reason: Pain (moderate 4-6) Pramipexole Dihydrochloride (Mirapex) 0.25 mg PO 5XDAY [facility] Last Admin: 03/22/17 17:08 Dose: 0.25 mg Pregabalin (Lyrica) 150 mg PO Q8H [facility] Last Admin: 03/22/17 14:24 Dose: 150 mg Sodium Chloride (Saline Flush) 10 ml FLUSH ASDIRECTED PRN PRN Reason: Keep Vein Open Last Admin: 03/21/17 13:02 Dose: 10 ml Trazodone HCl (Trazodone) 50 mg PO BEDTIME PRN PRN Reason: INSOMNIA Last Admin: 03/21/17 22:24 Dose: 50 mg Discontinued Medications Sodium Chloride (Normal Saline) 1,000 mls @ 999 mls/hr IV ONETIME ONE Stop: 03/21/17 16:49 Last Admin: 03/21/17 16:00 Dose: 999 mls/hr Levofloxacin/Dextrose 500 mg/ (Premix) 100 mls @ 100 mls/hr IV ONETIME ONE Stop: 03/21/17 17:52 Last Admin: 03/21/17 17:00 Dose: 100 mls/hr Sodium Chloride (Normal Saline) 1,000 mls @ 75 mls/hr IV ONETIME ONE Stop: 03/22/17 07:37 Last Admin: 03/22/17 01:32 Dose: 75 mls/hr Sodium Chloride (Normal Saline) 1,000 mls @ 999 mls/hr IV ONETIME ONE Stop: 03/21/17 21:22 Last Admin: 03/22/17 00:30 Dose: 999 mls/hr Sodium Chloride (Normal Saline) Confirm Administered Dose 1,000 mls @ as directed .ROUTE .STK-MED ONE Stop: 03/22/17 01:25 Last Admin: 03/22/17 01:31 Dose: Not Given Lorazepam (Ativan) 1 mg IVPUSH ONETIME ONE Stop: 03/21/17 15:50 Last Admin: 03/21/17 16:00 Dose: 1 mg - Exam Quality Assessment: Urine Catheter, DVT Prophylaxis General: Alert, Oriented, Cooperative, No Acute Distress HEENT: Pupils Equal, Pupils Reactive, EOMI Neck: Supple, Trachea Midline, No JVD Lungs: Normal Respiratory Effort Cardiovascular: Regular Rate GI/Abdominal Exam: Normal Bowel Sounds, Soft, Non-Tender, No Organomegaly, No Distention (Female) Exam: Deferred Back Exam: Normal Inspection Extremities: Normal Inspection Wound/Incisions: Healing Well Neurological: No New Focal Deficit Psy/Mental Status: Alert - Problem List & Annotations (1) Hypertension SNOMED Code(s): 86914297 Code(s): I10 - ESSENTIAL (PRIMARY) HYPERTENSION Status: Acute Current Visit: Yes (2) Recurrent UTI SNOMED Code(s): 061551347 Code(s): N39.0 - URINARY TRACT INFECTION, SITE NOT SPECIFIED Status: Acute Current Visit: Yes (3) Suprapubic catheter SNOMED Code(s): 353690509, 664257884 Code(s): Z93.59 - OTHER CYSTOSTOMY STATUS Status: Acute Current Visit: Yes (4) Anxiety SNOMED Code(s): 41158258 Code(s): F41.9 - ANXIETY DISORDER, UNSPECIFIED Status: Acute Current Visit: Yes (5) Depression SNOMED Code(s): 31902683 Code(s): F32.9 - MAJOR DEPRESSIVE DISORDER, SINGLE EPISODE, UNSPECIFIED Status: Acute Current Visit: Yes (6) Hypothyroid SNOMED Code(s): 62222505 Code(s): E03.9 - HYPOTHYROIDISM, UNSPECIFIED Status: Acute Current Visit : Yes (7) Dehydration SNOMED Code(s): 01280826 Code(s): E86.0 - DEHYDRATION Status: Acute Current Visit: No (8) Dislodged Dixon catheter SNOMED Code(s): 18187035 Code(s): T83.021A - DISPLACEMENT OF INDWELLING URETHRAL CATHETER, INIT Status: Acute Current Visit: No Qualifiers: Encounter type: initial encounter Qualified Code(s): T83.021A - Displacement of indwelling urethral catheter, initial encounter (9) Dixon catheter problem SNOMED Code(s): 104103199 Code(s): T83.9XXA - UNSP COMPLICATION OF GENITOURINARY PROSTH DEV/GRFT, INIT Status: Acute Current Visit: No Qualifiers: Encounter type: initial encounter Qualified Code(s): T83.9XXA - Unspecified complication of genitourinary prosthetic device, implant and graft, initial encounter (10) Neurogenic bladder disorder SNOMED Code(s): 368719642 Code(s): N31.9 - NEUROMUSCULAR DYSFUNCTION OF BLADDER, UNSPECIFIED Status: Acute Current Visit: No - Problem List Review Problem List Initiated/Reviewed/Updated: Yes - My Orders Last 24 Hours: My Active Orders 03/21/17 20:15 Vital Signs [RC] 03,09,15,21 Cyclobenzaprine [Flexeril] 10 mg PO BEDTIME PRN 03/21/17 20:17 Activity as Tolerated [RC] .Routine LORazepam [Ativan] 1 mg IVPUSH Q6H PRN Code Status [Resuscitation Status] Routine 03/21/17 20:21 Antiembolic Devices [RC] DAILY PILI Hose [Antiembolic Hose] [OM.PC] Routine 03/21/17 20:24 Consult to Case Management [CONS] Routine Consult to Physical Therapy [PT Evaluation and Treatment] [CONS] Routine 03/21/17 20:25 Consult to Occupational Therapy [OT Evaluation and Treatment] [CONS] Routine Morphine 1 mg IVPUSH Q6H PRN 03/21/17 20:30 traZODone 50 mg PO BEDTIME PRN 03/21/17 21:00 Pregabalin [Lyrica] 150 mg PO Q8H 03/21/17 22:00 Pramipexole [Mirapex] 0.25 mg PO 5XDAY 03/22/17 05:00 Consult to Speech Language Pathology [ACTUARIAL SCIENCE PROFESSOR Evaluation and Treatment] [CONS] Routine Oral Care [OM.PC] Routine 03/22/17 06:00 Levothyroxine 125 mcg PO ACBREAKFAST 03/22/17 11:00 cefTRIAXone [Rocephin] 2 gm Sodium Chloride 0.9% [Normal Saline] 100 ml IV Q24H 03/22/17 Dinner Heart Healthy Diet [DIET] 03/23/17 05:00 BASIC METABOLIC PANEL,BMP [CHEM] DAILY CBC WITH AUTO DIFF [HEME] DAILY CRP [C-REACTIVE PROTEIN] [CHEM] DAILY MAGNESIUM [CHEM] DAILY 03/24/17 05:00 BASIC METABOLIC PANEL,BMP [CHEM] DAILY CBC WITH AUTO DIFF [HEME] DAILY CRP [C-REACTIVE PROTEIN] [CHEM] DAILY MAGNESIUM [CHEM] DAILY 03/25/17 05:00 BASIC METABOLIC PANEL,BMP [CHEM] DAILY CBC WITH AUTO DIFF [HEME] DAILY CRP [C-REACTIVE PROTEIN] [CHEM] DAILY MAGNESIUM [CHEM] DAILY 03/26/17 05:00 BASIC METABOLIC PANEL,BMP [CHEM] DAILY CBC WITH AUTO DIFF [HEME] DAILY CRP [C-REACTIVE PROTEIN] [CHEM] DAILY MAGNESIUM [CHEM] DAILY 03/27/17 05:00 BASIC METABOLIC PANEL,BMP [CHEM] DAILY CBC WITH AUTO DIFF [HEME] DAILY CRP [C-REACTIVE PROTEIN] [CHEM] DAILY MAGNESIUM [CHEM] DAILY - Plan Plan:: Impression: AUTI, history of recurrent UTIs; removal of suprapubic catheter Neurogenic bladder Acute mental status change Chronic HLD HTN Depression/Anxiety Hypothyroidism Tobacco dependence Plan: IVF AT Home meds CM/PT/OT DVT/GI prophylaxis
[2017-03-23] MEDS: Cyclobenzaprine 10 MG Tab PO PRN ×2 (03:29→21:25)
[2017-03-23] MEDS: Pregabalin 75 MG Cap PO SCH ×3 (04:40→21:25)
[2017-03-23] MEDS: Levothyroxine 125 MCG Tab PO SCH (06:21)
[2017-03-23] MEDS: Pramipexole 0.25 MG Tab PO SCH ×5 (06:21→21:25)
[2017-03-23] MEDS ORDERED: Magnesium Sulfate/Water 2 GM in Premix Bag 1 BAG IV ONE (09:11)
[2017-03-23] MEDS ORDERED: Potassium Chloride 10% 20 MEQ/15 ML Soln 30 ML UD Cup PO ONE (09:11)
[2017-03-23] MEDS: cefTRIAXone 2 GM in Sodium Chloride 0.9% 100 ML IV SCH (11:49)
[2017-03-23] MEDS: Nicotine 21 MG/24 Hr Patch TRDERM SCH (12:56)
--- NOTE | 2017-03-23 12:56 | PCM.PN ---
- General Info Date of Service: 03/23/17 Functional Status: Reports: Tolerating Diet, Urinating - Review of Systems General: Reports: Weakness HEENT: Reports: No Symptoms Pulmonary: Reports: No Symptoms Cardiovascular: Reports: No Symptoms Gastrointestinal: Reports: No Symptoms Genitourinary: Reports: No Symptoms Musculoskeletal: Reports: No Symptoms Skin: Reports: No Symptoms Neurological: Reports: No Symptoms Psychiatric: Reports: No Symptoms - Patient Data Vitals - Most Recent: Last Vital Signs Temp 36.9 C 03/23/17 09:55 Pulse 87 03/23/17 09:23 Resp 12 03/23/17 09:23 BP 136/67 03/23/17 09:23 Pulse Ox 94 L 03/23/17 09:23 Weight - Most Recent: 89.584 kg I&O - Last 24 Hours: Intake & Output 03/22/17 03/23/17 03/23/17 22:59 06:59 14:59 Intake Total 1100 250 0 Output Total 1450 1300 Balance -350 -1050 0 Lab Results Last 24 Hours: Laboratory Results - last 24 hr 03/23/17 03/23/17 Range/Units 05:42 05:42 WBC 7.65 (3.98-10.04) K/mm3 RBC 4.59 (3.98-5.22) M/mm3 Hgb 12.9 (11.2-15.7) gm/L Hct 39.6 (34.1-44.9) % MCV 86.3 (79.4-94.8) fl MCH 28.1 (25.6-32.2) pg MCHC 32.6 (32.2-35.5) g/dl RDW Std Deviation 49.1 H (36.4-46.3) fL Plt Count 342 (182-369) K/mm3 MPV 10.2 (9.4-12.3) fl Neut % (Auto) 74.7 H (34.0-71.1) % Lymph % (Auto) 19.3 (19.3-51.7) % [place] % (Auto) 4.6 L (4.7-12.5) % Eos % (Auto) 0.1 L (0.7-5.8) Baso % (Auto) 0.1 (0.1-1.2) % Neut # (Auto) 5.71 (1.56-6.13) K/mm3 Lymph # (Auto) 1.48 (1.18-3.74) K/mm3 [place] # (Auto) 0.35 (0.24-0.36) K/mm3 Eos # (Auto) 0.01 L (0.04-0.36) K/mm3 Baso # (Auto) 0.01 (0.01-0.08) K/mm3 Sodium 141 (136-145) mEq/L Potassium 3.4 L (3.5-5.1) mEq/L Chloride 107 (98-107) mEq/L Carbon Dioxide 24 (21-32) mEq/L Anion Gap 13.4 (5-15) BUN 18 (7-18) mg/dL Creatinine 1.5 H (0.55-1.02) mg/dL Est Cr Clr Drug Dosing 45.33 mL/min Estimated GFR (MDRD) 36 (>60) mL/min BUN/Creatinine Ratio 12.0 L (14-18) Glucose 95 (74-106) mg/dL Calcium 8.5 (8.5-10.1) mg/dL Magnesium 1.9 (1.8-2.4) mg/dl C-Reactive Protein 6.5 H* (<1.0) mg/dL Med Orders - Current: Current Medications Cyclobenzaprine HCl (Flexeril) 10 mg PO BEDTIME PRN PRN Reason: Pain Last Admin: 03/23/17 03:29 Dose: 10 mg Ceftriaxone Sodium 2 gm/ (Sodium Chloride) 100 mls @ 200 mls/hr IV Q24H [facility] Last Admin: 03/23/17 11:49 Dose: 200 mls/hr Levothyroxine Sodium (Levothyroxine) 150 mcg PO ACBREAKFAST [facility] Lorazepam (Ativan) 1 mg IVPUSH Q6H PRN PRN Reason: Anxiety Last Admin: 03/22/17 00:44 Dose: 1 mg Morphine Sulfate (Morphine) 1 mg IVPUSH Q6H PRN PRN Reason: Pain (moderate 4-6) Nicotine (Habitrol) 21 mg TRDERM DAILY [facility] Pramipexole Dihydrochloride (Mirapex) 0.25 mg PO 5XDAY [facility] Last Admin: 03/23/17 09:36 Dose: 0.25 mg Pregabalin (Lyrica) 150 mg PO Q8H [facility] Last Admin: 03/23/17 12:16 Dose: 150 mg Saccharomyces Boulardii (Florastor) 250 mg PO BID [facility] Sodium Chloride (Saline Flush) 10 ml FLUSH ASDIRECTED PRN PRN Reason: Keep Vein Open Last Admin: 03/21/17 13:02 Dose: 10 ml Trazodone HCl (Trazodone) 50 mg PO BEDTIME PRN PRN Reason: INSOMNIA Last Admin: 03/21/17 22:24 Dose: 50 mg Discontinued Medications Sodium Chloride (Normal Saline) 1,000 mls @ 999 mls/hr IV ONETIME ONE Stop: 03/21/17 16:49 Last Admin: 03/21/17 16:00 Dose: 999 mls/hr Levofloxacin/Dextrose 500 mg/ (Premix) 100 mls @ 100 mls/hr IV ONETIME ONE Stop: 03/21/17 17:52 Last Admin: 03/21/17 17:00 Dose: 100 mls/hr Sodium Chloride (Normal Saline) 1,000 mls @ 75 mls/hr IV ONETIME ONE Stop: 03/22/17 07:37 Last Admin: 03/22/17 01:32 Dose: 75 mls/hr Sodium Chloride (Normal Saline) 1,000 mls @ 999 mls/hr IV ONETIME ONE Stop: 03/21/17 21:22 Last Admin: 03/22/17 00:30 Dose: 999 mls/hr Sodium Chloride (Normal Saline) Confirm Administered Dose 1,000 mls @ as directed .ROUTE .STK-MED ONE Stop: 03/22/17 01:25 Last Admin: 03/22/17 01:31 Dose: Not Given Magnesium Sulfate 2 gm/ Premix 50 mls @ 25 mls/hr IV ONETIME ONE Stop: 03/23/17 11:10 Last Admin: 03/23/17 09:35 Dose: 25 mls/hr Levothyroxine Sodium (Levothyroxine) 125 mcg PO ACBREAKFAST [facility] Last Admin: 03/23/17 06:21 Dose: 125 mcg Lorazepam (Ativan) 1 mg IVPUSH ONETIME ONE Stop: 03/21/17 15:50 Last Admin: 03/21/17 16:00 Dose: 1 mg Potassium Chloride (Potassium Chloride) 40 meq PO ONETIME ONE Stop: 03/23/17 09:12 Last Admin: 03/23/17 09:36 Dose: 40 meq - Exam Quality Assessment: Urine Catheter, DVT Prophylaxis General: Alert, Oriented, No Acute Distress HEENT: Pupils Equal, Pupils Reactive, EOMI Neck: Supple, Trachea Midline, No JVD Lungs: Normal Respiratory Effort Cardiovascular: Regular Rate, Regular Rhythm GI/Abdominal Exam: Normal Bowel Sounds, Soft, Non-Tender, No Organomegaly, No Distention (Female) Exam: Deferred Back Exam: Normal Inspection Extremities: Normal Inspection, Normal Capillary Refill Skin: Warm Neurological: No New Focal Deficit Psy/Mental Status: Alert - Problem List & Annotations (1) Hypertension SNOMED Code(s): 20895239 Code(s): I10 - ESSENTIAL (PRIMARY) HYPERTENSION Status: Acute Current Visit: Yes (2) Recurrent UTI SNOMED Code(s): 649431020 Code(s): N39.0 - URINARY TRACT INFECTION, SITE NOT SPECIFIED Status: Acute Current Visit: Yes (3) Suprapubic catheter SNOMED Code(s): 462524207, 027124136 Code(s): Z93.59 - OTHER CYSTOSTOMY STATUS Status: Acute Current Visit: Yes (4) Anxiety SNOMED Code(s): 65743260 Code(s): F41.9 - ANXIETY DISORDER, UNSPECIFIED Status: Acute Current Visit: Yes (5) Hypothyroid SNOMED Code(s): 00497707 Code(s): E03.9 - HYPOTHYROIDISM, UNSPECIFIED Status: Acute Current Visit : Yes (6) Dehydration SNOMED Code(s): 03193850 Code(s): E86.0 - DEHYDRATION Status: Acute Current Visit: No (7) Dislodged Dixon catheter SNOMED Code(s): 10653315 Code(s): T83.021A - DISPLACEMENT OF INDWELLING URETHRAL CATHETER, INIT Status: Acute Current Visit: No Qualifiers: Encounter type: initial encounter Qualified Code(s): T83.021A - Displacement of indwelling urethral catheter, initial encounter (8) Dixon catheter problem SNOMED Code(s): 296439407 Code(s): T83.9XXA - UNSP COMPLICATION OF GENITOURINARY PROSTH DEV/GRFT, INIT Status: Acute Current Visit: No Qualifiers: Encounter type: initial encounter Qualified Code(s): T83.9XXA - Unspecified complication of genitourinary prosthetic device, implant and graft, initial encounter (9) Neurogenic bladder disorder SNOMED Code(s): 963772184 Code(s): N31.9 - NEUROMUSCULAR DYSFUNCTION OF BLADDER, UNSPECIFIED Status: Acute Current Visit: No - Problem List Review Problem List Initiated/Reviewed/Updated: Yes - My Orders Last 24 Hours: My Active Orders 03/22/17 Dinner Heart Healthy Diet [DIET] 03/23/17 09:13 Levothyroxine 150 mcg PO ACBREAKFAST 03/23/17 13:00 Nicotine [Habitrol] 21 mg TRDERM DAILY 03/23/17 14:00 Saccharomyces Boulardii [Florastor] 250 mg PO BID 03/24/17 05:00 BASIC METABOLIC PANEL,BMP [CHEM] DAILY CBC WITH AUTO DIFF [HEME] DAILY CRP [C-REACTIVE PROTEIN] [CHEM] DAILY MAGNESIUM [CHEM] DAILY 03/25/17 05:00 BASIC METABOLIC PANEL,BMP [CHEM] DAILY CBC WITH AUTO DIFF [HEME] DAILY CRP [C-REACTIVE PROTEIN] [CHEM] DAILY MAGNESIUM [CHEM] DAILY 03/26/17 05:00 BASIC METABOLIC PANEL,BMP [CHEM] DAILY CBC WITH AUTO DIFF [HEME] DAILY CRP [C-REACTIVE PROTEIN] [CHEM] DAILY MAGNESIUM [CHEM] DAILY 03/27/17 05:00 BASIC METABOLIC PANEL,BMP [CHEM] DAILY CBC WITH AUTO DIFF [HEME] DAILY CRP [C-REACTIVE PROTEIN] [CHEM] DAILY MAGNESIUM [CHEM] DAILY - Plan Plan:: Impression: AUTI, history of recurrent UTIs; removal of suprapubic catheter Neurogenic bladder Acute mental status change; resolved currently at baseline. Did not partcipate in cognitive evaluation Chronic HLD HTN Depression, other/Anxiety Hypothyroidism Tobacco dependence Plan: IVF ATBs Home meds CM/PT/OT DVT/GI prophylaxis DC expected 03/25/17.
[2017-03-23] MEDS: Saccharomyces Boulardii (Probiotic) 250 MG Cap PO SCH ×2 (14:34→21:25)
[2017-03-23] MEDS: traZODone 50 MG Tab PO PRN (21:25)
[2017-03-24] MEDS: Pregabalin 75 MG Cap PO SCH ×3 (06:29→21:01)
[2017-03-24] MEDS: Levothyroxine 150 MCG Tab PO SCH (06:29)
[2017-03-24] MEDS: Pramipexole 0.25 MG Tab PO SCH ×5 (06:30→21:01)
[2017-03-24] MEDS: Nicotine 21 MG/24 Hr Patch TRDERM SCH (08:48)
[2017-03-24] MEDS: Saccharomyces Boulardii (Probiotic) 250 MG Cap PO SCH ×2 (08:49→21:00)
[2017-03-24] MEDS: cefTRIAXone 2 GM in Sodium Chloride 0.9% 100 ML IV SCH (11:31)
[2017-03-24] MEDS ORDERED: Ampicillin 1 GM in Sodium Chloride 0.9% 100 ML IV SCH (16:00)
[2017-03-24] MEDS ORDERED: Levofloxacin/Dextrose 5%-Water 500 MG in Premix Bag 1 BAG IV SCH (17:00)
[2017-03-24] MEDS: Ampicillin 1 GM in Sodium Chloride 0.9% 100 ML IV SCH (18:17)
[2017-03-24] MEDS: traZODone 50 MG Tab PO PRN (21:01)
[2017-03-24] MEDS: Cyclobenzaprine 10 MG Tab PO PRN (21:01)
[2017-03-25] MEDS: Ampicillin 1 GM in Sodium Chloride 0.9% 100 ML IV SCH ×4 (00:25→17:17)
[2017-03-25] MEDS: Pregabalin 75 MG Cap PO SCH ×3 (05:42→20:15)
[2017-03-25] MEDS: Pramipexole 0.25 MG Tab PO SCH ×6 (05:42→22:45)
[2017-03-25] MEDS: Levothyroxine 150 MCG Tab PO SCH (05:42)
[2017-03-25] MEDS: Saccharomyces Boulardii (Probiotic) 250 MG Cap PO SCH ×2 (08:51→20:15)
[2017-03-25] MEDS: Nicotine 21 MG/24 Hr Patch TRDERM SCH (08:51)
[2017-03-25] MEDS: Levofloxacin/Dextrose 5%-Water 500 MG in Premix Bag 1 BAG IV SCH (09:39)
[2017-03-25] MEDS ORDERED: Magnesium Hydroxide 400 MG/5 ML Susp 30 ML Cup PO ONE (11:19)
[2017-03-25] MEDS: Cyclobenzaprine 10 MG Tab PO PRN (11:42)
--- NOTE | 2017-03-25 12:09 | PCM.PN ---
- General Info Date of Service: 03/24/17 Functional Status: Reports: Pain Controlled, Tolerating Diet, Urinating - Review of Systems General: Reports: No Symptoms HEENT: Reports: No Symptoms Pulmonary: Reports: No Symptoms Cardiovascular: Reports: No Symptoms Gastrointestinal: Reports: No Symptoms Genitourinary: Reports: No Symptoms Musculoskeletal: Reports: No Symptoms Skin: Reports: No Symptoms Neurological: Reports: No Symptoms Psychiatric: Reports: No Symptoms - Patient Data Vitals - Most Recent: Last Vital Signs Temp 36.6 C 03/25/17 07:29 Pulse 78 03/25/17 07:29 Resp 16 03/25/17 07:29 BP 114/66 03/25/17 07:29 Pulse Ox 95 03/25/17 07:29 Weight - Most Recent: 91.711 kg I&O - Last 24 Hours: Intake & Output 03/24/17 03/25/17 03/25/17 22:59 06:59 14:59 Intake Total 1100 800 0 Output Total 650 950 Balance 450 -150 0 Lab Results Last 24 Hours: Laboratory Results - last 24 hr 03/25/17 03/25/17 Range/Units 05:54 05:54 WBC 6.38 (3.98-10.04) K/mm3 RBC 4.75 (3.98-5.22) M/mm3 Hgb 12.8 (11.2-15.7) gm/L Hct 41.4 (34.1-44.9) % MCV 87.2 (79.4-94.8) fl MCH 26.9 (25.6-32.2) pg MCHC 30.9 L (32.2-35.5) g/dl RDW Std Deviation 51.2 H (36.4-46.3) fL Plt Count 413 H (182-369) K/mm3 MPV 10.2 (9.4-12.3) fl Neut % (Auto) 61.1 (34.0-71.1) % Lymph % (Auto) 31.0 (19.3-51.7) % [place] % (Auto) 6.4 (4.7-12.5) % Eos % (Auto) 0.2 L (0.7-5.8) Baso % (Auto) 0.5 (0.1-1.2) % Neut # (Auto) 3.90 (1.56-6.13) K/mm3 Lymph # (Auto) 1.98 (1.18-3.74) K/mm3 [place] # (Auto) 0.41 H (0.24-0.36) K/mm3 Eos # (Auto) 0.01 L (0.04-0.36) K/mm3 Baso # (Auto) 0.03 (0.01-0.08) K/mm3 Sodium 143 (136-145) mEq/L Potassium 3.6 (3.5-5.1) mEq/L Chloride 109 H (98-107) mEq/L Carbon Dioxide 25 (21-32) mEq/L Anion Gap 12.6 (5-15) BUN 16 (7-18) mg/dL Creatinine 1.3 H (0.55-1.02) mg/dL Est Cr Clr Drug Dosing 52.30 mL/min Estimated GFR (MDRD) 43 (>60) mL/min BUN/Creatinine Ratio 12.3 L (14-18) Glucose 110 H (74-106) mg/dL Calcium 8.7 (8.5-10.1) mg/dL Magnesium 1.9 (1.8-2.4) mg/dl C-Reactive Protein 2.4 H* (<1.0) mg/dL Med Orders - Current: Current Medications Cyclobenzaprine HCl (Flexeril) 10 mg PO BEDTIME PRN PRN Reason: Pain Last Admin: 03/25/17 11:42 Dose: 10 mg Levofloxacin/Dextrose 500 mg/ (Premix) 100 mls @ 100 mls/hr IV Q24H [facility] Last Admin: 03/25/17 09:39 Dose: 100 mls/hr Ampicillin Sodium 1 gm/ Sodium (Chloride) 100 mls @ 200 mls/hr IV Q6H [facility] Last Admin: 03/25/17 05:40 Dose: 200 mls/hr Levothyroxine Sodium (Levothyroxine) 150 mcg PO ACBREAKFAST [facility] Last Admin: 03/25/17 05:42 Dose: 150 mcg Lorazepam (Ativan) 1 mg IVPUSH Q6H PRN PRN Reason: Anxiety Last Admin: 03/22/17 00:44 Dose: 1 mg Miscellaneous Information (Remove Patch) 0 ea TRDERM DAILY [facility] Last Admin: 03/25/17 08:52 Dose: Not Given Morphine Sulfate (Morphine) 1 mg IVPUSH Q6H PRN PRN Reason: Pain (moderate 4-6) Nicotine (Habitrol) 21 mg TRDERM DAILY [facility] Last Admin: 03/25/17 08:51 Dose: Not Given Pramipexole Dihydrochloride (Mirapex) 0.25 mg PO 5XDAY [facility] Last Admin: 03/25/17 09:39 Dose: 0.25 mg Pregabalin (Lyrica) 150 mg PO Q8H [facility] Last Admin: 03/25/17 05:42 Dose: 150 mg Saccharomyces Boulardii (Florastor) 250 mg PO BID [facility] Last Admin: 03/25/17 08:51 Dose: 250 mg Sodium Chloride (Saline Flush) 10 ml FLUSH ASDIRECTED PRN PRN Reason: Keep Vein Open Last Admin: 03/21/17 13:02 Dose: 10 ml Trazodone HCl (Trazodone) 50 mg PO BEDTIME PRN PRN Reason: INSOMNIA Last Admin: 03/24/17 21:01 Dose: 50 mg Discontinued Medications Sodium Chloride (Normal Saline) 1,000 mls @ 999 mls/hr IV ONETIME ONE Stop: 03/21/17 16:49 Last Admin: 03/21/17 16:00 Dose: 999 mls/hr Levofloxacin/Dextrose 500 mg/ (Premix) 100 mls @ 100 mls/hr IV ONETIME ONE Stop: 03/21/17 17:52 Last Admin: 03/21/17 17:00 Dose: 100 mls/hr Sodium Chloride (Normal Saline) 1,000 mls @ 75 mls/hr IV ONETIME ONE Stop: 03/22/17 07:37 Last Admin: 03/22/17 01:32 Dose: 75 mls/hr Sodium Chloride (Normal Saline) 1,000 mls @ 999 mls/hr IV ONETIME ONE Stop: 03/21/17 21:22 Last Admin: 03/22/17 00:30 Dose: 999 mls/hr Sodium Chloride (Normal Saline) Confirm Administered Dose 1,000 mls @ as directed .ROUTE .STK-MED ONE Stop: 03/22/17 01:25 Last Admin: 03/22/17 01:31 Dose: Not Given Ceftriaxone Sodium 2 gm/ (Sodium Chloride) 100 mls @ 200 mls/hr IV Q24H [facility] Last Admin: 03/24/17 11:31 Dose: 200 mls/hr Magnesium Sulfate 2 gm/ Premix 50 mls @ 25 mls/hr IV ONETIME ONE Stop: 03/23/17 11:10 Last Admin: 03/23/17 09:35 Dose: 25 mls/hr Levofloxacin/Dextrose 500 mg/ (Premix) 100 mls @ 100 mls/hr IV Q24H [facility] Last Admin: 03/24/17 18:00 Dose: Not Given Levothyroxine Sodium (Levothyroxine) 125 mcg PO ACBREAKFAST [facility] Last Admin: 03/23/17 06:21 Dose: 125 mcg Lorazepam (Ativan) 1 mg IVPUSH ONETIME ONE Stop: 03/21/17 15:50 Last Admin: 03/21/17 16:00 Dose: 1 mg Magnesium Hydroxide (Milk Of Magnesia) 30 ml PO ONETIME ONE Stop: 03/25/17 11:20 Last Admin: 03/25/17 11:42 Dose: Not Given Potassium Chloride (Potassium Chloride) 40 meq PO ONETIME ONE Stop: 03/23/17 09:12 Last Admin: 03/23/17 09:36 Dose: 40 meq - Exam Quality Assessment: Urine Catheter, DVT Prophylaxis General: Alert, Oriented, No Acute Distress HEENT: Pupils Equal, Pupils Reactive, EOMI Neck: Supple, Trachea Midline Lungs: Normal Respiratory Effort Cardiovascular: Regular Rate, Regular Rhythm GI/Abdominal Exam: Normal Bowel Sounds, Soft, Non-Tender, No Organomegaly, No Distention (Female) Exam: Deferred Back Exam: Normal Inspection Extremities: Normal Capillary Refill Skin: Warm Neurological: No New Focal Deficit Psy/Mental Status: Alert - Problem List & Annotations (1) Hypertension SNOMED Code(s): 13810690 Code(s): I10 - ESSENTIAL (PRIMARY) HYPERTENSION Status: Acute Current Visit: Yes (2) Recurrent UTI SNOMED Code(s): 771089994 Code(s): N39.0 - URINARY TRACT INFECTION, SITE NOT SPECIFIED Status: Acute Current Visit: Yes (3) Suprapubic catheter SNOMED Code(s): 676515425, 824366502 Code(s): Z93.59 - OTHER CYSTOSTOMY STATUS Status: Acute Current Visit: Yes (4) Anxiety SNOMED Code(s): 18890314 Code(s): F41.9 - ANXIETY DISORDER, UNSPECIFIED Status: Acute Current Visit: Yes (5) Hypothyroid SNOMED Code(s): 68349893 Code(s): E03.9 - HYPOTHYROIDISM, UNSPECIFIED Status: Acute Current Visit : Yes (6) Dehydration SNOMED Code(s): 68573977 Code(s): E86.0 - DEHYDRATION Status: Acute Current Visit: No (7) Dislodged Dixon catheter SNOMED Code(s): 31394740 Code(s): T83.021A - DISPLACEMENT OF INDWELLING URETHRAL CATHETER, INIT Status: Acute Current Visit: Yes Qualifiers: Encounter type: initial encounter Qualified Code(s): T83.021A - Displacement of indwelling urethral catheter, initial encounter (8) Dixon catheter problem SNOMED Code(s): 513271620 Code(s): T83.9XXA - UNSP COMPLICATION OF GENITOURINARY PROSTH DEV/GRFT, INIT Status: Acute Current Visit: No Qualifiers: Encounter type: initial encounter Qualified Code(s): T83.9XXA - Unspecified complication of genitourinary prosthetic device, implant and graft, initial encounter (9) Neurogenic bladder disorder SNOMED Code(s): 027894722 Code(s): N31.9 - NEUROMUSCULAR DYSFUNCTION OF BLADDER, UNSPECIFIED Status: Acute Current Visit: No - Problem List Review Problem List Initiated/Reviewed/Updated: Yes - My Orders Last 24 Hours: My Active Orders 03/24/17 18:00 Ampicillin 1 gm Sodium Chloride 0.9% [Normal Saline] 100 ml IV Q6H 03/25/17 10:00 Levofloxacin/Dextrose 5%-Water [Levaquin in D5W 500 MG/100 ML] 500 mg Premix Bag 1 bag IV Q24H 03/26/17 05:00 BASIC METABOLIC PANEL,BMP [CHEM] DAILY CBC WITH AUTO DIFF [HEME] DAILY CRP [C-REACTIVE PROTEIN] [CHEM] DAILY MAGNESIUM [CHEM] DAILY 03/27/17 05:00 BASIC METABOLIC PANEL,BMP [CHEM] DAILY CBC WITH AUTO DIFF [HEME] DAILY CRP [C-REACTIVE PROTEIN] [CHEM] DAILY MAGNESIUM [CHEM] DAILY - Plan Plan:: Impression: AUTI, history of recurrent UTIs; removal of suprapubic catheter Neurogenic bladder Acute mental status change; resolved currently at baseline. Did not partcipate in cognitive evaluation Chronic HLD HTN Depression, other/Anxiety Hypothyroidism Tobacco dependence Plan: IVF ATBs-->adjusted to Levoquin with Ampicillin; DC Rocephin Home meds CM/PT/OT DVT/GI prophylaxis DC expected 03/25/17.
--- NOTE | 2017-03-25 12:12 | PCM.PN ---
- General Info Date of Service: 03/25/17 Functional Status: Reports: Tolerating Diet, Other (Unable or unwilling to stand or participate in PT/OT) - Review of Systems General: Reports: Weakness HEENT: Reports: No Symptoms Pulmonary: Reports: No Symptoms Cardiovascular: Reports: No Symptoms Gastrointestinal: Reports: No Symptoms Genitourinary: Reports: No Symptoms Musculoskeletal: Reports: No Symptoms Skin: Reports: No Symptoms Neurological: Reports: No Symptoms Psychiatric: Reports: No Symptoms - Patient Data Vitals - Most Recent: Last Vital Signs Temp 36.6 C 03/25/17 07:29 Pulse 78 03/25/17 07:29 Resp 16 03/25/17 07:29 BP 114/66 03/25/17 07:29 Pulse Ox 95 03/25/17 07:29 Weight - Most Recent: 91.711 kg I&O - Last 24 Hours: Intake & Output 03/24/17 03/25/17 03/25/17 22:59 06:59 14:59 Intake Total 1100 800 0 Output Total 650 950 Balance 450 -150 0 Lab Results Last 24 Hours: Laboratory Results - last 24 hr 03/25/17 03/25/17 Range/Units 05:54 05:54 WBC 6.38 (3.98-10.04) K/mm3 RBC 4.75 (3.98-5.22) M/mm3 Hgb 12.8 (11.2-15.7) gm/L Hct 41.4 (34.1-44.9) % MCV 87.2 (79.4-94.8) fl MCH 26.9 (25.6-32.2) pg MCHC 30.9 L (32.2-35.5) g/dl RDW Std Deviation 51.2 H (36.4-46.3) fL Plt Count 413 H (182-369) K/mm3 MPV 10.2 (9.4-12.3) fl Neut % (Auto) 61.1 (34.0-71.1) % Lymph % (Auto) 31.0 (19.3-51.7) % [place] % (Auto) 6.4 (4.7-12.5) % Eos % (Auto) 0.2 L (0.7-5.8) Baso % (Auto) 0.5 (0.1-1.2) % Neut # (Auto) 3.90 (1.56-6.13) K/mm3 Lymph # (Auto) 1.98 (1.18-3.74) K/mm3 [place] # (Auto) 0.41 H (0.24-0.36) K/mm3 Eos # (Auto) 0.01 L (0.04-0.36) K/mm3 Baso # (Auto) 0.03 (0.01-0.08) K/mm3 Sodium 143 (136-145) mEq/L Potassium 3.6 (3.5-5.1) mEq/L Chloride 109 H (98-107) mEq/L Carbon Dioxide 25 (21-32) mEq/L Anion Gap 12.6 (5-15) BUN 16 (7-18) mg/dL Creatinine 1.3 H (0.55-1.02) mg/dL Est Cr Clr Drug Dosing 52.30 mL/min Estimated GFR (MDRD) 43 (>60) mL/min BUN/Creatinine Ratio 12.3 L (14-18) Glucose 110 H (74-106) mg/dL Calcium 8.7 (8.5-10.1) mg/dL Magnesium 1.9 (1.8-2.4) mg/dl C-Reactive Protein 2.4 H* (<1.0) mg/dL Med Orders - Current: Current Medications Cyclobenzaprine HCl (Flexeril) 10 mg PO BEDTIME PRN PRN Reason: Pain Last Admin: 03/25/17 11:42 Dose: 10 mg Levofloxacin/Dextrose 500 mg/ (Premix) 100 mls @ 100 mls/hr IV Q24H [facility] Last Admin: 03/25/17 09:39 Dose: 100 mls/hr Ampicillin Sodium 1 gm/ Sodium (Chloride) 100 mls @ 200 mls/hr IV Q6H [facility] Last Admin: 03/25/17 05:40 Dose: 200 mls/hr Levothyroxine Sodium (Levothyroxine) 150 mcg PO ACBREAKFAST [facility] Last Admin: 03/25/17 05:42 Dose: 150 mcg Lorazepam (Ativan) 1 mg IVPUSH Q6H PRN PRN Reason: Anxiety Last Admin: 03/22/17 00:44 Dose: 1 mg Miscellaneous Information (Remove Patch) 0 ea TRDERM DAILY [facility] Last Admin: 03/25/17 08:52 Dose: Not Given Morphine Sulfate (Morphine) 1 mg IVPUSH Q6H PRN PRN Reason: Pain (moderate 4-6) Nicotine (Habitrol) 21 mg TRDERM DAILY [facility] Last Admin: 03/25/17 08:51 Dose: Not Given Pramipexole Dihydrochloride (Mirapex) 0.25 mg PO 5XDAY [facility] Last Admin: 03/25/17 09:39 Dose: 0.25 mg Pregabalin (Lyrica) 150 mg PO Q8H [facility] Last Admin: 03/25/17 05:42 Dose: 150 mg Saccharomyces Boulardii (Florastor) 250 mg PO BID [facility] Last Admin: 03/25/17 08:51 Dose: 250 mg Sodium Chloride (Saline Flush) 10 ml FLUSH ASDIRECTED PRN PRN Reason: Keep Vein Open Last Admin: 03/21/17 13:02 Dose: 10 ml Trazodone HCl (Trazodone) 50 mg PO BEDTIME PRN PRN Reason: INSOMNIA Last Admin: 03/24/17 21:01 Dose: 50 mg Discontinued Medications Sodium Chloride (Normal Saline) 1,000 mls @ 999 mls/hr IV ONETIME ONE Stop: 03/21/17 16:49 Last Admin: 03/21/17 16:00 Dose: 999 mls/hr Levofloxacin/Dextrose 500 mg/ (Premix) 100 mls @ 100 mls/hr IV ONETIME ONE Stop: 03/21/17 17:52 Last Admin: 03/21/17 17:00 Dose: 100 mls/hr Sodium Chloride (Normal Saline) 1,000 mls @ 75 mls/hr IV ONETIME ONE Stop: 03/22/17 07:37 Last Admin: 03/22/17 01:32 Dose: 75 mls/hr Sodium Chloride (Normal Saline) 1,000 mls @ 999 mls/hr IV ONETIME ONE Stop: 03/21/17 21:22 Last Admin: 03/22/17 00:30 Dose: 999 mls/hr Sodium Chloride (Normal Saline) Confirm Administered Dose 1,000 mls @ as directed .ROUTE .STK-MED ONE Stop: 03/22/17 01:25 Last Admin: 03/22/17 01:31 Dose: Not Given Ceftriaxone Sodium 2 gm/ (Sodium Chloride) 100 mls @ 200 mls/hr IV Q24H [facility] Last Admin: 03/24/17 11:31 Dose: 200 mls/hr Magnesium Sulfate 2 gm/ Premix 50 mls @ 25 mls/hr IV ONETIME ONE Stop: 03/23/17 11:10 Last Admin: 03/23/17 09:35 Dose: 25 mls/hr Levofloxacin/Dextrose 500 mg/ (Premix) 100 mls @ 100 mls/hr IV Q24H [facility] Last Admin: 03/24/17 18:00 Dose: Not Given Levothyroxine Sodium (Levothyroxine) 125 mcg PO ACBREAKFAST [facility] Last Admin: 03/23/17 06:21 Dose: 125 mcg Lorazepam (Ativan) 1 mg IVPUSH ONETIME ONE Stop: 03/21/17 15:50 Last Admin: 03/21/17 16:00 Dose: 1 mg Magnesium Hydroxide (Milk Of Magnesia) 30 ml PO ONETIME ONE Stop: 03/25/17 11:20 Last Admin: 03/25/17 11:42 Dose: Not Given Potassium Chloride (Potassium Chloride) 40 meq PO ONETIME ONE Stop: 03/23/17 09:12 Last Admin: 03/23/17 09:36 Dose: 40 meq - Exam Quality Assessment: Urine Catheter, DVT Prophylaxis General: Alert, Oriented, Cooperative, No Acute Distress HEENT: Pupils Equal, Pupils Reactive, EOMI Neck: Supple, Trachea Midline, No JVD Lungs: Normal Respiratory Effort Cardiovascular: Regular Rate, Regular Rhythm GI/Abdominal Exam: Normal Bowel Sounds, Soft, Non-Tender, No Organomegaly, No Distention (Female) Exam: Deferred Back Exam: Normal Inspection Extremities: Normal Inspection, Normal Capillary Refill Skin: Warm Neurological: No New Focal Deficit Psy/Mental Status: Alert - Problem List & Annotations (1) Hypertension SNOMED Code(s): 58186863 Code(s): I10 - ESSENTIAL (PRIMARY) HYPERTENSION Status: Acute Current Visit: Yes (2) Recurrent UTI SNOMED Code(s): 180647567 Code(s): N39.0 - URINARY TRACT INFECTION, SITE NOT SPECIFIED Status: Acute Current Visit: Yes (3) Suprapubic catheter SNOMED Code(s): 778055992, 087583809 Code(s): Z93.59 - OTHER CYSTOSTOMY STATUS Status: Acute Current Visit: Yes (4) Anxiety SNOMED Code(s): 76237602 Code(s): F41.9 - ANXIETY DISORDER, UNSPECIFIED Status: Acute Current Visit: Yes (5) Hypothyroid SNOMED Code(s): 17978573 Code(s): E03.9 - HYPOTHYROIDISM, UNSPECIFIED Status: Acute Current Visit : Yes (6) Dehydration SNOMED Code(s): 06528402 Code(s): E86.0 - DEHYDRATION Status: Acute Current Visit: No (7) Dislodged Dixon catheter SNOMED Code(s): 19517101 Code(s): T83.021A - DISPLACEMENT OF INDWELLING URETHRAL CATHETER, INIT Status: Acute Current Visit: Yes Qualifiers: Encounter type: initial encounter Qualified Code(s): T83.021A - Displacement of indwelling urethral catheter, initial encounter (8) Dixon catheter problem SNOMED Code(s): 412373451 Code(s): T83.9XXA - UNSP COMPLICATION OF GENITOURINARY PROSTH DEV/GRFT, INIT Status: Acute Current Visit: No Qualifiers: Encounter type: initial encounter Qualified Code(s): T83.9XXA - Unspecified complication of genitourinary prosthetic device, implant and graft, initial encounter (9) Neurogenic bladder disorder SNOMED Code(s): 333229140 Code(s): N31.9 - NEUROMUSCULAR DYSFUNCTION OF BLADDER, UNSPECIFIED Status: Acute Current Visit: No - Problem List Review Problem List Initiated/Reviewed/Updated: Yes - My Orders Last 24 Hours: My Active Orders 03/24/17 18:00 Ampicillin 1 gm Sodium Chloride 0.9% [Normal Saline] 100 ml IV Q6H 03/25/17 10:00 Levofloxacin/Dextrose 5%-Water [Levaquin in D5W 500 MG/100 ML] 500 mg Premix Bag 1 bag IV Q24H 03/26/17 05:00 BASIC METABOLIC PANEL,BMP [CHEM] DAILY CBC WITH AUTO DIFF [HEME] DAILY CRP [C-REACTIVE PROTEIN] [CHEM] DAILY MAGNESIUM [CHEM] DAILY 03/27/17 05:00 BASIC METABOLIC PANEL,BMP [CHEM] DAILY CBC WITH AUTO DIFF [HEME] DAILY CRP [C-REACTIVE PROTEIN] [CHEM] DAILY MAGNESIUM [CHEM] DAILY - Plan Plan:: Impression: AUTI, history of recurrent UTIs; removal of suprapubic catheter Neurogenic bladder Acute mental status change; resolved currently at baseline. Did not partcipate in cognitive evaluation Chronic HLD HTN Depression, other/Anxiety Hypothyroidism Tobacco dependence Plan: IVF ATBs-->adjusted to Levoquin with Ampicillin; DC Rocephin Home meds CM/PT/OT DVT/GI prophylaxis DC expected 03/25/17-->cancelled after sensitivity on urine culture. LOS>96 hours for treatment, DC on Tuesday.
[2017-03-25] MEDS: Morphine 2 MG/ML Syringe IVPUSH PRN ×2 (13:21→20:16)
[2017-03-25] MEDS: traZODone 50 MG Tab PO PRN (20:18)
[2017-03-26] MEDS: Ampicillin 1 GM in Sodium Chloride 0.9% 100 ML IV SCH ×4 (00:56→17:49)
[2017-03-26] MEDS: Levothyroxine 150 MCG Tab PO SCH (06:40)
[2017-03-26] MEDS: Pramipexole 0.25 MG Tab PO SCH ×5 (06:40→22:10)
[2017-03-26] MEDS: Pregabalin 75 MG Cap PO SCH ×3 (06:41→22:10)
[2017-03-26] MEDS: Saccharomyces Boulardii (Probiotic) 250 MG Cap PO SCH ×2 (09:14→22:10)
[2017-03-26] MEDS: Levofloxacin/Dextrose 5%-Water 500 MG in Premix Bag 1 BAG IV SCH (09:15)
[2017-03-26] MEDS ORDERED: Sodium Chloride 0.45% 1,000 ML IV SCH (09:30)
--- NOTE | 2017-03-26 11:06 | PCM.PN ---
- General Info Date of Service: 03/26/17 Functional Status: Reports: Pain Controlled (requesting pain meds for back pain) , Tolerating Diet, Urinating - Review of Systems General: Reports: Weakness HEENT: Reports: No Symptoms Pulmonary: Reports: No Symptoms Cardiovascular: Reports: No Symptoms Gastrointestinal: Reports: No Symptoms Genitourinary: Reports: No Symptoms Musculoskeletal: Reports: No Symptoms Skin: Reports: No Symptoms Neurological: Reports: No Symptoms Psychiatric: Reports: No Symptoms - Patient Data Vitals - Most Recent: Last Vital Signs Temp 36.8 C 03/26/17 04:13 Pulse 72 03/26/17 04:13 Resp 14 03/26/17 04:13 BP 107/73 03/26/17 04:13 Pulse Ox 94 L 03/26/17 04:13 Weight - Most Recent: 91.58 kg I&O - Last 24 Hours: Intake & Output 03/25/17 03/26/17 03/26/17 22:59 06:59 14:59 Intake Total 1010 960 Output Total 600 450 Balance 410 510 Lab Results Last 24 Hours: Laboratory Results - last 24 hr 03/26/17 03/26/17 Range/Units 06:10 06:10 WBC 6.46 (3.98-10.04) K/mm3 RBC 4.66 (3.98-5.22) M/mm3 Hgb 13.0 (11.2-15.7) gm/L Hct 40.9 (34.1-44.9) % MCV 87.8 (79.4-94.8) fl MCH 27.9 (25.6-32.2) pg MCHC 31.8 L (32.2-35.5) g/dl RDW Std Deviation 51.4 H (36.4-46.3) fL Plt Count 386 H (182-369) K/mm3 MPV 10.3 (9.4-12.3) fl Neut % (Auto) 64.6 (34.0-71.1) % Lymph % (Auto) 29.6 (19.3-51.7) % [place] % (Auto) 4.5 L (4.7-12.5) % Eos % (Auto) 0.2 L (0.7-5.8) Baso % (Auto) 0.3 (0.1-1.2) % Neut # (Auto) 4.18 (1.56-6.13) K/mm3 Lymph # (Auto) 1.91 (1.18-3.74) K/mm3 [place] # (Auto) 0.29 (0.24-0.36) K/mm3 Eos # (Auto) 0.01 L (0.04-0.36) K/mm3 Baso # (Auto) 0.02 (0.01-0.08) K/mm3 Sodium 142 (136-145) mEq/L Potassium 3.8 (3.5-5.1) mEq/L Chloride 108 H (98-107) mEq/L Carbon Dioxide 25 (21-32) mEq/L Anion Gap 12.8 (5-15) BUN 19 H (7-18) mg/dL Creatinine 1.4 H (0.55-1.02) mg/dL Est Cr Clr Drug Dosing 48.57 mL/min Estimated GFR (MDRD) 39 (>60) mL/min BUN/Creatinine Ratio 13.6 L (14-18) Glucose 112 H (74-106) mg/dL Calcium 8.5 (8.5-10.1) mg/dL Magnesium 1.9 (1.8-2.4) mg/dl C-Reactive Protein 1.5 H* (<1.0) mg/dL Med Orders - Current: Current Medications Cyclobenzaprine HCl (Flexeril) 10 mg PO BEDTIME PRN PRN Reason: Pain Last Admin: 03/25/17 11:42 Dose: 10 mg Levofloxacin/Dextrose 500 mg/ (Premix) 100 mls @ 100 mls/hr IV Q24H [facility] Last Admin: 03/26/17 09:15 Dose: 100 mls/hr Ampicillin Sodium 1 gm/ Sodium (Chloride) 100 mls @ 200 mls/hr IV Q6H [facility] Last Admin: 03/26/17 06:40 Dose: 200 mls/hr Sodium Chloride (Sodium Chloride 0.45%) 1,000 mls @ 75 mls/hr IV ASDIRECTED [facility] Levothyroxine Sodium (Levothyroxine) 150 mcg PO ACBREAKFAST [facility] Last Admin: 03/26/17 06:40 Dose: 150 mcg Lorazepam (Ativan) 1 mg IVPUSH Q6H PRN PRN Reason: Anxiety Last Admin: 03/22/17 00:44 Dose: 1 mg Morphine Sulfate (Morphine) 1 mg IVPUSH Q6H PRN PRN Reason: Pain (moderate 4-6) Last Admin: 03/25/17 20:16 Dose: 1 mg Pramipexole Dihydrochloride (Mirapex) 0.25 mg PO 5XDAY [facility] Last Admin: 03/26/17 09:15 Dose: 0.25 mg Pregabalin (Lyrica) 150 mg PO Q8H [facility] Last Admin: 03/26/17 06:41 Dose: 150 mg Saccharomyces Boulardii (Florastor) 250 mg PO BID [facility] Last Admin: 03/26/17 09:14 Dose: 250 mg Sodium Chloride (Saline Flush) 10 ml FLUSH ASDIRECTED PRN PRN Reason: Keep Vein Open Last Admin: 03/21/17 13:02 Dose: 10 ml Trazodone HCl (Trazodone) 50 mg PO BEDTIME PRN PRN Reason: INSOMNIA Last Admin: 03/25/17 20:18 Dose: 50 mg Discontinued Medications Sodium Chloride (Normal Saline) 1,000 mls @ 999 mls/hr IV ONETIME ONE Stop: 03/21/17 16:49 Last Admin: 03/21/17 16:00 Dose: 999 mls/hr Levofloxacin/Dextrose 500 mg/ (Premix) 100 mls @ 100 mls/hr IV ONETIME ONE Stop: 03/21/17 17:52 Last Admin: 03/21/17 17:00 Dose: 100 mls/hr Sodium Chloride (Normal Saline) 1,000 mls @ 75 mls/hr IV ONETIME ONE Stop: 03/22/17 07:37 Last Admin: 03/22/17 01:32 Dose: 75 mls/hr Sodium Chloride (Normal Saline) 1,000 mls @ 999 mls/hr IV ONETIME ONE Stop: 03/21/17 21:22 Last Admin: 03/22/17 00:30 Dose: 999 mls/hr Sodium Chloride (Normal Saline) Confirm Administered Dose 1,000 mls @ as directed .ROUTE .STK-MED ONE Stop: 03/22/17 01:25 Last Admin: 03/22/17 01:31 Dose: Not Given Ceftriaxone Sodium 2 gm/ (Sodium Chloride) 100 mls @ 200 mls/hr IV Q24H [facility] Last Admin: 03/24/17 11:31 Dose: 200 mls/hr Magnesium Sulfate 2 gm/ Premix 50 mls @ 25 mls/hr IV ONETIME ONE Stop: 03/23/17 11:10 Last Admin: 03/23/17 09:35 Dose: 25 mls/hr Levofloxacin/Dextrose 500 mg/ (Premix) 100 mls @ 100 mls/hr IV Q24H [facility] Last Admin: 03/24/17 18:00 Dose: Not Given Levothyroxine Sodium (Levothyroxine) 125 mcg PO ACBREAKFAST [facility] Last Admin: 03/23/17 06:21 Dose: 125 mcg Lorazepam (Ativan) 1 mg IVPUSH ONETIME ONE Stop: 03/21/17 15:50 Last Admin: 03/21/17 16:00 Dose: 1 mg Magnesium Hydroxide (Milk Of Magnesia) 30 ml PO ONETIME ONE Stop: 03/25/17 11:20 Last Admin: 03/25/17 11:42 Dose: Not Given Miscellaneous Information (Remove Patch) 0 ea TRDERM DAILY [facility] Last Admin: 03/25/17 08:52 Dose: Not Given Nicotine (Habitrol) 21 mg TRDERM DAILY [facility] Last Admin: 03/25/17 08:51 Dose: Not Given Potassium Chloride (Potassium Chloride) 40 meq PO ONETIME ONE Stop: 03/23/17 09:12 Last Admin: 03/23/17 09:36 Dose: 40 meq - Exam Quality Assessment: Urine Catheter, DVT Prophylaxis General: Alert, Oriented, No Acute Distress HEENT: Pupils Equal, Pupils Reactive, EOMI Neck: Supple, Trachea Midline, No JVD Lungs: Normal Respiratory Effort Cardiovascular: Regular Rate, Regular Rhythm GI/Abdominal Exam: Normal Bowel Sounds, Soft, Non-Tender, No Organomegaly, No Distention (Female) Exam: Deferred Back Exam: Normal Inspection Extremities: Normal Inspection, Normal Capillary Refill Skin: Warm Neurological: No New Focal Deficit Psy/Mental Status: Alert, Depressed - Problem List & Annotations (1) Hypertension SNOMED Code(s): 70659092 Code(s): I10 - ESSENTIAL (PRIMARY) HYPERTENSION Status: Acute Current Visit: Yes (2) Recurrent UTI SNOMED Code(s): 044157965 Code(s): N39.0 - URINARY TRACT INFECTION, SITE NOT SPECIFIED Status: Acute Current Visit: Yes (3) Suprapubic catheter SNOMED Code(s): 298415342, 692705762 Code(s): Z93.59 - OTHER CYSTOSTOMY STATUS Status: Acute Current Visit: Yes (4) Anxiety SNOMED Code(s): 96894029 Code(s): F41.9 - ANXIETY DISORDER, UNSPECIFIED Status: Acute Current Visit: Yes (5) Hypothyroid SNOMED Code(s): 88483062 Code(s): E03.9 - HYPOTHYROIDISM, UNSPECIFIED Status: Acute Current Visit : Yes (6) Dehydration SNOMED Code(s): 73624484 Code(s): E86.0 - DEHYDRATION Status: Acute Current Visit: No (7) Dislodged Dixon catheter SNOMED Code(s): 41583638 Code(s): T83.021A - DISPLACEMENT OF INDWELLING URETHRAL CATHETER, INIT Status: Acute Current Visit: Yes Qualifiers: Encounter type: initial encounter Qualified Code(s): T83.021A - Displacement of indwelling urethral catheter, initial encounter (8) Dixon catheter problem SNOMED Code(s): 367273939 Code(s): T83.9XXA - UNSP COMPLICATION OF GENITOURINARY PROSTH DEV/GRFT, INIT Status: Acute Current Visit: No Qualifiers: Encounter type: initial encounter Qualified Code(s): T83.9XXA - Unspecified complication of genitourinary prosthetic device, implant and graft, initial encounter (9) Neurogenic bladder disorder SNOMED Code(s): 797148865 Code(s): N31.9 - NEUROMUSCULAR DYSFUNCTION OF BLADDER, UNSPECIFIED Status: Acute Current Visit: No - Problem List Review Problem List Initiated/Reviewed/Updated: Yes - My Orders Last 24 Hours: My Active Orders 03/26/17 09:30 Sodium Chloride 0.45% 1,000 ml IV ASDIRECTED 03/27/17 05:00 BASIC METABOLIC PANEL,BMP [CHEM] DAILY CBC WITH AUTO DIFF [HEME] DAILY CRP [C-REACTIVE PROTEIN] [CHEM] DAILY MAGNESIUM [CHEM] DAILY - Plan Plan:: Impression: AUTI, history of recurrent UTIs; removal of suprapubic catheter Neurogenic bladder Acute mental status change; resolved currently at baseline. Did not partcipate in cognitive evaluation Chronic HLD HTN Depression, other/Anxiety Hypothyroidism Tobacco dependence Plan: IVF ATBs-->adjusted to Levoquin with Ampicillin; DC Rocephin Home meds CM/PT/OT DVT/GI prophylaxis DC expected 03/25/17-->cancelled after sensitivity on urine culture. LOS>96 hours for treatment, DC on Tuesday.
[2017-03-26] MEDS: Morphine 2 MG/ML Syringe IVPUSH PRN ×2 (11:25→17:56)
[2017-03-26] MEDS: traZODone 50 MG Tab PO PRN (22:16)
[2017-03-27] MEDS: Ampicillin 1 GM in Sodium Chloride 0.9% 100 ML IV SCH ×5 (00:01→23:43)
[2017-03-27] MEDS: Pregabalin 75 MG Cap PO SCH ×3 (05:13→20:06)
[2017-03-27] MEDS: Levothyroxine 150 MCG Tab PO SCH (05:13)
[2017-03-27] MEDS: Pramipexole 0.25 MG Tab PO SCH ×5 (05:13→23:43)
--- NOTE | 2017-03-27 08:19 | PCM.PN ---
- General Info Date of Service: 03/27/17 Admission Dx/Problem (Free Text): Admission Diagnosis/Problem Admission Diagnosis/Problem Urinary tract infection-Catheter Related Subjective Update: Follow Up Functional Status: Reports: Tolerating Diet, Urinating. Denies: Pain Controlled , Ambulating, New Symptoms - Review of Systems General: Denies: Fever, Chills HEENT: Reports: No Symptoms. Denies: Visual Changes Cardiovascular: Denies: Chest Pain Gastrointestinal: Denies: Abdominal Pain, Nausea, Vomiting Genitourinary: Reports: Retention. Denies: Dysuria, Frequency, Burning, Pain, Urgency Musculoskeletal: Denies: Shoulder Pain Skin: Denies: Cyanosis, Pallor, Rash Neurological: Reports: Numbness, Pre-Existing Deficit, Tingling, Difficulty Walking, Gait Disturbance. Denies: Confusion Psychiatric: Denies: Depression, Mood Lability, Anxiety, Hallucinations Systems Review Comment:: No overnight or acute issues. She remains afebrile w/o leukocytosis. She is doing much better. She wants to leave in AM. - Patient Data Vitals - Most Recent: Last Vital Signs Temp 36.4 C 03/27/17 02:23 Pulse 78 03/27/17 02:23 Resp 16 03/27/17 02:23 BP 118/74 03/27/17 02:23 Pulse Ox 93 L 03/27/17 02:23 Weight - Most Recent: 92.533 kg I&O - Last 24 Hours: Intake & Output 03/26/17 03/27/17 03/27/17 22:59 06:59 14:59 Intake Total 987 350 Output Total 750 1100 Balance 237 -750 Lab Results Last 24 Hours: Laboratory Results - last 24 hr 03/27/17 03/27/17 Range/Units 07:35 07:35 WBC 6.36 (3.98-10.04) K/mm3 RBC 4.71 (3.98-5.22) M/mm3 Hgb 13.2 (11.2-15.7) gm/L Hct 41.6 (34.1-44.9) % MCV 88.3 (79.4-94.8) fl MCH 28.0 (25.6-32.2) pg MCHC 31.7 L (32.2-35.5) g/dl RDW Std Deviation 50.3 H (36.4-46.3) fL Plt Count 405 H (182-369) K/mm3 MPV 10.0 (9.4-12.3) fl Neut % (Auto) 64.8 (34.0-71.1) % Lymph % (Auto) 27.7 (19.3-51.7) % [place] % (Auto) 6.6 (4.7-12.5) % Eos % (Auto) 0 L (0.7-5.8) Baso % (Auto) 0.3 (0.1-1.2) % Neut # (Auto) 4.12 (1.56-6.13) K/mm3 Lymph # (Auto) 1.76 (1.18-3.74) K/mm3 [place] # (Auto) 0.42 H (0.24-0.36) K/mm3 Eos # (Auto) 0.00 L (0.04-0.36) K/mm3 Baso # (Auto) 0.02 (0.01-0.08) K/mm3 Sodium 142 (136-145) mEq/L Potassium 3.8 (3.5-5.1) mEq/L Chloride 106 (98-107) mEq/L Carbon Dioxide 28 (21-32) mEq/L Anion Gap 11.8 (5-15) BUN 18 (7-18) mg/dL Creatinine 1.3 H (0.55-1.02) mg/dL Est Cr Clr Drug Dosing 52.30 mL/min Estimated GFR (MDRD) 43 (>60) mL/min BUN/Creatinine Ratio 13.8 L (14-18) Glucose 99 (74-106) mg/dL Calcium 8.7 (8.5-10.1) mg/dL Magnesium 1.8 (1.8-2.4) mg/dl C-Reactive Protein 1.0 (<1.0) mg/dL Med Orders - Current: Current Medications Cyclobenzaprine HCl (Flexeril) 10 mg PO BEDTIME PRN PRN Reason: Pain Last Admin: 03/25/17 11:42 Dose: 10 mg Levofloxacin/Dextrose 500 mg/ (Premix) 100 mls @ 100 mls/hr IV Q24H [facility] Last Admin: 03/26/17 09:15 Dose: 100 mls/hr Ampicillin Sodium 1 gm/ Sodium (Chloride) 100 mls @ 200 mls/hr IV Q6H [facility] Last Admin: 03/27/17 05:12 Dose: 200 mls/hr Sodium Chloride (Sodium Chloride 0.45%) 1,000 mls @ 75 mls/hr IV ASDIRECTED [facility] Last Admin: 03/26/17 11:25 Dose: 75 mls/hr Levothyroxine Sodium (Levothyroxine) 150 mcg PO ACBREAKFAST [facility] Last Admin: 03/27/17 05:13 Dose: 150 mcg Lorazepam (Ativan) 1 mg IVPUSH Q6H PRN PRN Reason: Anxiety Last Admin: 03/22/17 00:44 Dose: 1 mg Morphine Sulfate (Morphine) 1 mg IVPUSH Q6H PRN PRN Reason: Pain (moderate 4-6) Last Admin: 03/26/17 17:56 Dose: 1 mg Pramipexole Dihydrochloride (Mirapex) 0.25 mg PO 5XDAY [facility] Last Admin: 03/27/17 05:13 Dose: 0.25 mg Pregabalin (Lyrica) 150 mg PO Q8H [facility] Last Admin: 03/27/17 05:13 Dose: 150 mg Saccharomyces Boulardii (Florastor) 250 mg PO BID [facility] Last Admin: 03/26/17 22:10 Dose: 250 mg Sodium Chloride (Saline Flush) 10 ml FLUSH ASDIRECTED PRN PRN Reason: Keep Vein Open Last Admin: 03/21/17 13:02 Dose: 10 ml Trazodone HCl (Trazodone) 50 mg PO BEDTIME PRN PRN Reason: INSOMNIA Last Admin: 03/26/17 22:16 Dose: 50 mg Discontinued Medications Sodium Chloride (Normal Saline) 1,000 mls @ 999 mls/hr IV ONETIME ONE Stop: 03/21/17 16:49 Last Admin: 03/21/17 16:00 Dose: 999 mls/hr Levofloxacin/Dextrose 500 mg/ (Premix) 100 mls @ 100 mls/hr IV ONETIME ONE Stop: 03/21/17 17:52 Last Admin: 03/21/17 17:00 Dose: 100 mls/hr Sodium Chloride (Normal Saline) 1,000 mls @ 75 mls/hr IV ONETIME ONE Stop: 03/22/17 07:37 Last Admin: 03/22/17 01:32 Dose: 75 mls/hr Sodium Chloride (Normal Saline) 1,000 mls @ 999 mls/hr IV ONETIME ONE Stop: 03/21/17 21:22 Last Admin: 03/22/17 00:30 Dose: 999 mls/hr Sodium Chloride (Normal Saline) Confirm Administered Dose 1,000 mls @ as directed .ROUTE .STK-MED ONE Stop: 03/22/17 01:25 Last Admin: 03/22/17 01:31 Dose: Not Given Ceftriaxone Sodium 2 gm/ (Sodium Chloride) 100 mls @ 200 mls/hr IV Q24H [facility] Last Admin: 03/24/17 11:31 Dose: 200 mls/hr Magnesium Sulfate 2 gm/ Premix 50 mls @ 25 mls/hr IV ONETIME ONE Stop: 03/23/17 11:10 Last Admin: 03/23/17 09:35 Dose: 25 mls/hr Levofloxacin/Dextrose 500 mg/ (Premix) 100 mls @ 100 mls/hr IV Q24H [facility] Last Admin: 03/24/17 18:00 Dose: Not Given Levothyroxine Sodium (Levothyroxine) 125 mcg PO ACBREAKFAST [facility] Last Admin: 03/23/17 06:21 Dose: 125 mcg Lorazepam (Ativan) 1 mg IVPUSH ONETIME ONE Stop: 03/21/17 15:50 Last Admin: 03/21/17 16:00 Dose: 1 mg Magnesium Hydroxide (Milk Of Magnesia) 30 ml PO ONETIME ONE Stop: 03/25/17 11:20 Last Admin: 03/25/17 11:42 Dose: Not Given Miscellaneous Information (Remove Patch) 0 ea TRDERM DAILY [facility] Last Admin: 03/25/17 08:52 Dose: Not Given Nicotine (Habitrol) 21 mg TRDERM DAILY [facility] Last Admin: 03/25/17 08:51 Dose: Not Given Potassium Chloride (Potassium Chloride) 40 meq PO ONETIME ONE Stop: 03/23/17 09:12 Last Admin: 03/23/17 09:36 Dose: 40 meq - Exam General: Alert, Oriented, Cooperative, No Acute Distress HEENT: Pupils Equal, Pupils Reactive, EOMI, Mucous Membr. Moist/[place] Neck: Supple, Trachea Midline, No JVD, No Thyromegaly Lungs: Clear to Auscultation, Normal Respiratory Effort Cardiovascular: Regular Rate, Regular Rhythm, No Murmurs GI/Abdominal Exam: Normal Bowel Sounds, Soft, Non-Tender, No Organomegaly, No Distention, No Abnormal Bruit, No Mass, Other (Suprapubic catheter) (Female) Exam: Deferred Back Exam: Normal Inspection, Decreased Range of Motion, Muscle Spasm, Vertebral Tenderness Extremities: Normal Inspection, Normal Range of Motion, Non-Tender, No Pedal Edema, Normal Capillary Refill Peripheral Pulses: 2+: Dorsalis Pedis (L), Dorsalis Pedis (R) Skin: Warm, Dry, Intact Neurological: No New Focal Deficit. No: Normal Gait Psy/Mental Status: Alert, Normal Affect, Normal Mood - Problem List Review Problem List Initiated/Reviewed/Updated: Yes - Plan Plan:: Impression: Acute: Acute on Chronic UTI - Has Neurogenic Bladder S/p Spinal Surgery - On multiple meds that can worsen her bladder dysfunction - Supra-pubic catheter change in ED on admission - UA grow 3 organisms sensitive to Levaquin and PCN Resolved: S/p Acute mental status change; resolved currently at baseline - Patient is on dilaudid and other meds that can alter her minds - Recommend against cognitive evaluation Chronic HLD HTN Depression Other/Anxiety Hypothyroidism Tobacco dependence Chronic Back Pain Chronic Pain Syndrome Opioid Dependence Peripheral Neuropathy [place] Hx/o Recurrent UTI Plan: She is clinically stable Continue current treatment Continue PT/OT DVT/GI prophylaxis Encourage to be mobile D/c in AM with additional oral ATB to complete at least 5-7 days of treatment
[2017-03-27] MEDS ORDERED: Levofloxacin/Dextrose 5%-Water 100 ML IV ONE (09:00)
[2017-03-27] MEDS: Saccharomyces Boulardii (Probiotic) 250 MG Cap PO SCH ×2 (09:07→20:06)
[2017-03-27] MEDS: Levofloxacin/Dextrose 5%-Water 500 MG in Premix Bag 1 BAG IV SCH (09:07)
[2017-03-27] MEDS: HYDROmorphone 2 MG Tab PO PRN ×2 (13:33→20:05)
[2017-03-27] MEDS: traZODone 50 MG Tab PO PRN (20:06)
[2017-03-28] MEDS: Pramipexole 0.25 MG Tab PO SCH ×2 (06:26→09:15)
[2017-03-28] MEDS: Levothyroxine 150 MCG Tab PO SCH (06:26)
[2017-03-28] MEDS: Pregabalin 75 MG Cap PO SCH (06:26)
[2017-03-28] MEDS: Ampicillin 1 GM in Sodium Chloride 0.9% 100 ML IV SCH ×3 (06:30→12:10)
[2017-03-28] MEDS: Saccharomyces Boulardii (Probiotic) 250 MG Cap PO SCH (08:16)
[2017-03-28 08:18] VITALS: BP 108/62
[2017-03-28] MEDS: Levofloxacin/Dextrose 5%-Water 500 MG in Premix Bag 1 BAG IV SCH (09:15)
--- NOTE | 2017-03-28 09:15 | PCM.DCSUM1 ---
Discharge Summary - Hospital Course Free Text/Narrative:: 51 year old female with PMH of neurogenic bladder, has a suprapubic catheter which reportedly "just came out" with no coherent explanation. She has had recurrent UTIs, and is seen on the day of admission, without the indwelling catheter as well as a UTI. She complains of lower abdominal pain. She requires a wheelchair for mobility. Denies additional complaints. Has been seen in the ED by SW to initiate appropriate discharge after the treatment for the UTI. Patient is admitted for treatment of AUTI, dehydration, and essentially failure to thrive. UC was with multiple organisms which are with multi drug resistance and as follows- ecoli, beta strep group B and enterococcus. She was treated with Ampicillin and Levaquin. She worked with PT/OT, was minimally able to stand and had minimal progression with therapies. FEDERAL DISTRICT CLERK did cognitive evaluation with moderate to severe cognitive impairments- both recommended SNF placement for rehab stay. SW/CM worked diligently for placement for rehab stay for patient. She is discharged to [facility] for rehab stay. - Discharge Data Discharge Date: 03/28/17 (admit date 03/21/17) Discharge Disposition: DC/Tfer to SNF 03 Condition: Good - Discharge Diagnosis/Problem(s) (1) Recurrent UTI SNOMED Code(s): 741346489 ICD Code: N39.0 - URINARY TRACT INFECTION, SITE NOT SPECIFIED Status: Acute Priority: High (2) Suprapubic catheter SNOMED Code(s): 336344327, 108931062 ICD Code: Z93.59 - OTHER CYSTOSTOMY STATUS Status: Acute Priority: High (3) Opioid dependence SNOMED Code(s): 95789049 ICD Code: F11.20 - OPIOID DEPENDENCE, UNCOMPLICATED Status: Chronic Priority: High Onset Date: 07/22/15 Problem Details: secondary to severe chronic pain syndrome Qualifiers: Substance use status: with unspecified opioid-induced disorder Qualified Code(s): F11.29 - Opioid dependence with unspecified opioid-induced disorder (4) Neurogenic bladder disorder SNOMED Code(s): 039519142 ICD Code: N31.9 - NEUROMUSCULAR DYSFUNCTION OF BLADDER, UNSPECIFIED Status : Chronic Priority: Medium (5) Lower back pain SNOMED Code(s): 989846950 ICD Code: M54.5 - LOW BACK PAIN Status: Chronic Priority: Medium Onset Date: 07/22/15 Problem Details: acute on chronic status post laminectomy. Patient is opioid dependent Qualifiers: Back pain laterality: bilateral Sciatica presence: without sciatica (6) Lower extremity weakness SNOMED Code(s): 851969348 ICD Code: M62.81 - MUSCLE WEAKNESS (GENERALIZED) Status: Chronic Priority : Medium Onset Date: 07/22/15 Problem Details: postlaminectomy Qualifiers: Laterality: bilateral Qualified Code(s): R29.898 - Other symptoms and signs involving the musculoskeletal system - Patient Summary/Data Operative Procedure(s) Performed: None Complications: None Consults: Consultations 03/21/17 20:24 Consult to Case Management [CONS] Routine Consult to Physical Therapy [PT Evaluation and Treatment] [CONS] Routine 03/21/17 20:25 Consult to Occupational Therapy [OT Evaluation and Treatment] [CONS] Routine 03/22/17 05:00 Consult to Speech Language Pathology [FEDERAL DISTRICT CLERK Evaluation and Treatment] [CONS] Routine Labs Pending at D/C: None Recommended Follow-up Testing/Procedures: - Physical & occupational therapy to eval & treat, recommend repeat cognitive eval - Chronic supra-pubic catheter care with am & pm cares - Up with 2 assist and stand aid currently - Heart healthy diet NURSING please change supra pubic catheter prior to discharge on wednesday 03/28 Follow up with PCP within one week of discharge Planned Operative Procedure(s) after DC: None Hospital Course: As above - Patient Instructions Diet: Heart Healthy Diet Activity: As Tolerated Driving: Do Not Drive Showering/Bathing: May Shower Notify Provider of: Fever, Increased Pain, Swelling and Redness, Nausea and/or Vomiting - Discharge Plan Prescriptions/Med Rec: Ampicillin [Principen] 250 mg PO Q6H #24 cap Levofloxacin [Levaquin] 500 mg PO Q24H #7 tablet Levothyroxine 150 mcg PO ACBREAKFAST #30 tablet traZODone 50 mg PO BEDTIME PRN #30 tablet PRN Reason: Insomnia Home Medications: Home Meds HYDROmorphone [Dilaudid] 4 mg PO Q4H PRN 03/21/17 [History] Pramipexole Di-HCl [Mirapex] 0.25 mg PO 5XDAY 03/21/17 [History] Pregabalin [Lyrica] 150 mg PO Q8H 03/21/17 [History] Cyclobenzaprine [Flexeril] 10 mg PO BEDTIME PRN 03/22/17 [History] Topiramate [Topamax] 25 mg PO BEDTIME 03/22/17 [History] Ampicillin [Principen] 250 mg PO Q6H #24 cap 03/28/17 [Rx] Levofloxacin [Levaquin] 500 mg PO Q24H #7 tablet 03/28/17 [Rx] Levothyroxine 150 mcg PO ACBREAKFAST #30 tablet 03/28/17 [Rx] traZODone 50 mg PO BEDTIME PRN #30 tablet 03/28/17 [Rx] Patient Handouts: Smoking Cessation, Tips for Success, [id number], Smoking Hazards, Acute Urinary Retention, Female, Urinary Tract Infection, Adult, Hypertension, [id number], Suprapubic Catheter Replacement, Care After, Suprapubic Catheter Home Guide Referrals: Chyna Guillory DO [Primary Care Provider] - - Patient Data Vitals - Most Recent: Last Vital Signs Temp 98.2 F 03/28/17 07:22 Pulse 83 03/28/17 07:22 Resp 16 03/28/17 07:22 BP 108/62 03/28/17 07:22 Pulse Ox 91 L 03/28/17 07:22 Weight - Most Recent: 202 lb 6.4 oz I&O - Last 24 hours: Intake & Output 03/27/17 03/28/17 03/28/17 22:59 06:59 14:59 Intake Total 600 750 Output Total 1500 450 Balance -900 300 Med Orders - Current: Current Medications Cyclobenzaprine HCl (Flexeril) 10 mg PO BEDTIME PRN PRN Reason: Pain Last Admin: 03/25/17 11:42 Dose: 10 mg Hydromorphone HCl (Dilaudid) 4 mg PO Q4H PRN PRN Reason: Pain Last Admin: 03/27/17 20:05 Dose: 4 mg Levofloxacin/Dextrose 500 mg/ (Premix) 100 mls @ 100 mls/hr IV Q24H SHAWNA Last Admin: 03/27/17 09:07 Dose: 100 mls/hr Ampicillin Sodium 1 gm/ Sodium (Chloride) 100 mls @ 200 mls/hr IV Q6H SHAWNA Last Admin: 03/28/17 06:30 Dose: 200 mls/hr Levothyroxine Sodium (Levothyroxine) 150 mcg PO ACBREAKFAST [facility] Last Admin: 03/28/17 06:26 Dose: 150 mcg Lorazepam (Ativan) 1 mg IVPUSH Q6H PRN PRN Reason: Anxiety Last Admin: 03/22/17 00:44 Dose: 1 mg Morphine Sulfate (Morphine) 1 mg IVPUSH Q6H PRN PRN Reason: Pain (moderate 4-6) Last Admin: 03/26/17 17:56 Dose: 1 mg Pramipexole Dihydrochloride (Mirapex) 0.25 mg PO 5XDAY [facility] Last Admin: 03/28/17 06:26 Dose: 0.25 mg Pregabalin (Lyrica) 150 mg PO Q8H [facility] Last Admin: 03/28/17 06:26 Dose: 150 mg Saccharomyces Boulardii (Florastor) 250 mg PO BID [facility] Last Admin: 03/28/17 08:16 Dose: 250 mg Sodium Chloride (Saline Flush) 10 ml FLUSH ASDIRECTED PRN PRN Reason: Keep Vein Open Last Admin: 03/21/17 13:02 Dose: 10 ml Trazodone HCl (Trazodone) 50 mg PO BEDTIME PRN PRN Reason: INSOMNIA Last Admin: 03/27/17 20:06 Dose: 50 mg Discontinued Medications Sodium Chloride (Normal Saline) 1,000 mls @ 999 mls/hr IV ONETIME ONE Stop: 03/21/17 16:49 Last Admin: 03/21/17 16:00 Dose: 999 mls/hr Levofloxacin/Dextrose 500 mg/ (Premix) 100 mls @ 100 mls/hr IV ONETIME ONE Stop: 03/21/17 17:52 Last Admin: 03/21/17 17:00 Dose: 100 mls/hr Sodium Chloride (Normal Saline) 1,000 mls @ 75 mls/hr IV ONETIME ONE Stop: 03/22/17 07:37 Last Admin: 03/22/17 01:32 Dose: 75 mls/hr Sodium Chloride (Normal Saline) 1,000 mls @ 999 mls/hr IV ONETIME ONE Stop: 03/21/17 21:22 Last Admin: 03/22/17 00:30 Dose: 999 mls/hr Sodium Chloride (Normal Saline) Confirm Administered Dose 1,000 mls @ as directed .ROUTE .STK-MED ONE Stop: 03/22/17 01:25 Last Admin: 03/22/17 01:31 Dose: Not Given Ceftriaxone Sodium 2 gm/ (Sodium Chloride) 100 mls @ 200 mls/hr IV Q24H [facility] Last Admin: 03/24/17 11:31 Dose: 200 mls/hr Magnesium Sulfate 2 gm/ Premix 50 mls @ 25 mls/hr IV ONETIME ONE Stop: 03/23/17 11:10 Last Admin: 03/23/17 09:35 Dose: 25 mls/hr Levofloxacin/Dextrose 500 mg/ (Premix) 100 mls @ 100 mls/hr IV Q24H [facility] Last Admin: 03/24/17 18:00 Dose: Not Given Sodium Chloride (Sodium Chloride 0.45%) 1,000 mls @ 75 mls/hr IV ASDIRECTED [facility] Last Admin: 03/26/17 11:25 Dose: 75 mls/hr Levofloxacin/Dextrose (Levaquin In D5w 500 Mg/100 Ml) Confirm Administered Dose 100 mls @ as directed IV .STK-MED ONE Stop: 03/27/17 09:01 Last Admin: 03/27/17 09:06 Dose: Not Given Levothyroxine Sodium (Levothyroxine) 125 mcg PO ACBREAKFAST [facility] Last Admin: 03/23/17 06:21 Dose: 125 mcg Lorazepam (Ativan) 1 mg IVPUSH ONETIME ONE Stop: 03/21/17 15:50 Last Admin: 03/21/17 16:00 Dose: 1 mg Magnesium Hydroxide (Milk Of Magnesia) 30 ml PO ONETIME ONE Stop: 03/25/17 11:20 Last Admin: 03/25/17 11:42 Dose: Not Given Miscellaneous Information (Remove Patch) 0 ea TRDERM DAILY [facility] Last Admin: 03/25/17 08:52 Dose: Not Given Nicotine (Habitrol) 21 mg TRDERM DAILY [facility] Last Admin: 03/25/17 08:51 Dose: Not Given Potassium Chloride (Potassium Chloride) 40 meq PO ONETIME ONE Stop: 03/23/17 09:12 Last Admin: 03/23/17 09:36 Dose: 40 meq *Q Meaningful Use (DIS) - VTE *Q VTE Criteria *Q: - Stroke *Q Stroke Criteria *Q: - AMI *Q AMI Criteria *Q:
== END 2017-03-28 12:30 | DRG 690 ==
LOC: JD.ED 12:25 → JD.MS 18:10
PROVIDERS: ADMIT Internal Medicine Cardiovascular Disease; ATTEND Internal Medicine Cardiovascular Disease
DX: N39.0 Urinary tract infection, site not specified (principal); E86.0 Dehydration; N31.9 Neuromuscular dysfunction of bladder, unspecified; Z93.59 Other cystostomy status; R41.82 Altered mental status, unspecified; T83.021A Displacement of indwelling urethral catheter, initial encounter; Z93.50 Unspecified cystostomy status; I10 Essential (primary) hypertension; M54.9 Dorsalgia, unspecified; F32.9 Major depressive disorder, single episode, unspecified; F41.9 Anxiety disorder, unspecified; E03.9 Hypothyroidism, unspecified; E78.5 Hyperlipidemia, unspecified; F17.210 Nicotine dependence, cigarettes, uncomplicated; Z99.3 Dependence on wheelchair; G89.29 Other chronic pain; M54.5 Low back pain; F11.29 Opioid dependence with unspecified opioid-induced disorder; M62.81 Muscle weakness (generalized); Z88.8 Allergy status to other drugs, medicaments and biological substances; Z79.899 Other long term (current) drug therapy
CPT/HCPCS: 36415; 51102; 51798; 80053; 81001; 83605; 85025; 86140; 87040 ×2; 87086; 87088 ×3; 87186 ×3; 96361; 96365; 96375; 99285; J1956; J2060; J7040; J7050; 80048; 83735; 84443; 96125-GN; 97110-GO; 97110-GP; 97112-GP; 97162-GP; 97167-GO; 97530-GO; 97530-GP; 99284; A9270-GY; J0290; J0696; J2270; J3475; J7030

== ENCOUNTER 2017-06-09 02:15 | Emergency (ER) | payer MEDICAID ==
[2017-06-09 02:28] VITALS: BP 114/79
--- NOTE | 2017-06-09 02:57 | EDM.PDOC ---
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 She states that she has been leaking urine through her urethra, with low catheter output since yesterday afternoon, 06/08/2017. She denies having any pain or fever. She states that she has had similar symptoms several times in the past, due to an obstructed catheter. The patient's PCP is Dr. Cao. The patient's urologist is Dr. Hernandez. Lower Abdomen Pain Score (Numeric/FACES): 5 - Related Data Allergies Allergy/AdvReac Type Severity Reaction Status Date / Time cefixime [From Suprax] Allergy Mild Itching Verified 06/09/17 02:39 baclofen Allergy Itching Verified 06/09/17 02:39 Home Meds: Home Meds HYDROmorphone [Dilaudid] 4 mg PO Q4H PRN 03/21/17 [History] Pregabalin [Lyrica] 150 mg PO TID 03/21/17 [History] Cyclobenzaprine [Flexeril] 10 mg PO BEDTIME 03/22/17 [History] Levothyroxine 150 mcg PO ACBREAKFAST #30 tablet 03/28/17 [Rx] traZODone 50 mg PO BEDTIME PRN #30 tablet 03/28/17 [Rx] tiZANidine HCl [Tizanidine HCl] 4 mg PO TID 06/09/17 [History] Past Medical History Respiratory History: Reports: Intubation, Previous Genitourinary History: Reports: Neurogenic Bladder 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 History: Reports: Musculoskeletal History: Reports: Back Pain, Chronic, Fracture Neurological History: Reports: Other (See Below) Other Neuro History: 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 Psychiatric History: Reports: Anxiety, Depression Endocrine/Metabolic History: Reports: Hypothyroidism - Infectious Disease History Infectious Disease History: Reports: Chicken Pox, Measles - Past Surgical History HEENT Surgical History: Reports: Oral Surgery ([place] teeth extraction), Tonsillectomy Female Surgical History: Reports: Hysterectomy, Suprapubic Catheter Placement Endocrine Surgical History: Reports: Thyroidectomy (partial) Neurological Surgical History: Reports: Lumbar Spine (x 4) Social & Family History - Tobacco Use Smoking Status *Q: Current Every Day Smoker Years of Tobacco use: 40 Packs/Tins Daily: 0.5 - Caffeine Use Caffeine Use: Reports: None - Alcohol Use Alcohol Use History: No Days Per Week of Alcohol Use: 0 - Recreational Drug Use Recreational Drug Use: No - Living Situation & Occupation Living situation: Reports: , with Significant Other (Boyfriend) Occupation: Disabled ED ROS GENERAL - Review of Systems Review Of Systems: See Below Constitutional: Reports: No Symptoms HEENT: Reports: No Symptoms Respiratory: Reports: No Symptoms Cardiovascular: Reports: No Symptoms Endocrine: Reports: No Symptoms GI/Abdominal: Reports: No Symptoms : Reports: No Symptoms Musculoskeletal: Reports: No Symptoms Skin: Reports: No Symptoms Neurological: Reports: No Symptoms Psychiatric: Reports: No Symptoms Hematologic/Lymphatic: Reports: No Symptoms Immunologic: Reports: No Symptoms ED EXAM, RENAL/ - Physical Exam Exam: See Below Exam Limited By: No Limitations General Appearance: Alert, WD/WN, No Apparent Distress GI/Abdominal: Normal Bowel Sounds, Soft, Non-Tender, No Organomegaly, No Distention, No Abnormal Bruit, No Mass, Other (Transabdominal catheter in the suprapubic position. No associated swelling, erythema, rash, or discharge.) Course - Vital Signs Last Recorded V/S: Last Vital Signs Temp 36.3 C 06/09/17 02:23 Pulse 92 06/09/17 02:23 Resp 18 06/09/17 02:23 BP 114/79 06/09/17 02:23 Pulse Ox 98 06/09/17 02:23 - Orders/Labs/Meds Orders: Active Orders 24 hr Category Date Time Status CULTURE URINE [RM] Stat Lab 06/09/17 03:32 Received - Re-Assessments/Exams Free Text/Narrative Re-Assessment/Exam: 06/09/17 02:56 The bladder scan indicates 174 mL of retained urine. I have asked nurse Shah to try to flush the suprapubic catheter. If she is unable, we will need to replace it. 06/09/17 03:14 Notified by nurse Shah that she was unable to flush the suprapubic catheter. We will attempt to exchange the catheter. 06/09/17 03:23 An 18 [place] catheter was exchanged without difficulty. We noticed that the balloon had been filled with 20 mL fluid, instead of the 5-10 mL as recommended. Cloudy urine is now flowing through the new catheter. Because the patient has a chronic indwelling catheter, a urinalysis will be abnormal, even if she does not have a UTI. I have therefore ordered a urine culture. Departure - Departure Time of Disposition: 03:25 Disposition: Home, Self-Care 01 Condition: Good Clinical Impression: Obstructed suprapubic catheter - Discharge Information Instructions: Suprapubic Catheter Replacement, Care After Referrals: Jd Cao MD [Primary Care Provider] - Eligio Henrandez MD [Ordering Only Provider] - Forms: ED Department Discharge Additional Instructions: You were seen in the emergency room for a clogged suprapubic catheter. Your catheter was exchanged for a fresh one. Your urine was found to be cloudy. A urine culture was ordered. We recommend that you notify the office of your urologist, Dr. Hernandez, of your ER visit. We recommend that you follow-up with your PCP, Dr. Cao, on Tuesday morning , 06/13/2017, to follow-up on the urine culture results. If any other problems, please do not hesitate to return to the ER. - My Orders Last 24 Hours: My Active Orders 06/09/17 03:32 CULTURE URINE [RM] Stat - Assessment/Plan Last 24 Hours: My Active Orders 06/09/17 03:32 CULTURE URINE [RM] Stat
== END 2017-06-09 03:50 | disposition home or self-care (01) ==
LOC: JD.ED 02:15
DX: T83.098A Other mechanical complication of other urinary catheter, initial encounter (principal); F17.210 Nicotine dependence, cigarettes, uncomplicated; Z88.8 Allergy status to other drugs, medicaments and biological substances; Z79.899 Other long term (current) drug therapy
CPT/HCPCS: 51102; 51702; 51798; 87086; 87088; 87186; 99283-25; 99284-25

== ENCOUNTER 2017-08-04 06:36 | Day surgery (SDC) | payer MEDICAID ==
[~2017-08-04 06:36] MED LIST: Lactated Ringers 1,000 ML IV SCH; Lidocaine 1%/Sod Bicarbonate in NS 8.4% 1 ML Syringe IV PRN; Sodium Chloride 0.9% 10 ML Syringe FLUSH PRN
[2017-08-04] MEDS ORDERED: Propofol 200 MG/20 ML SDV ONE (07:23)
[2017-08-04] MEDS ORDERED: Midazolam 1 MG/ML 2 ML SDV ONE (07:24)
[2017-08-04] MEDS ORDERED: fentaNYL 100 MCG/2 ML SDV ONE (07:24)
[2017-08-04] MEDS ORDERED: Lidocaine 1% 4 ML ONE (07:24)
--- NOTE | 2017-08-04 07:36 | PCM.PREANE ---
Preanesthetic Assessment - Anesthesia/Transfusion/Family Hx Anesthesia History: Prior Anesthesia Without Reaction Family History of Anesthesia Reaction: No Transfusion History: No Prior Transfusion(s) - Review of Systems General: No Symptoms Pulmonary: No Symptoms Cardiovascular: No Symptoms Gastrointestinal: No Symptoms Neurological: Numbness (feet), Paresthesia (both legs), Tingling (feet) Other: Reports: Thyroid Problems - Physical Assessment NPO Status Date: 08/03/17 NPO Status Time: 00:00 Pulse: 54 O2 Sat by Pulse Oximetry: 93 Respiratory Rate: 16 Blood Pressure: 86/51 Temperature: 36.7 C Height: 1.75 m Weight: 97.522 kg ASA Class: 3 Mental Status: Alert & Oriented x3 Airway Class: Mallampati = 1 Dentition: Reports: Dentures (top) Thyro-Mental Finger Breadths: 3 Mouth Opening Finger Breadths: 3 ROM/Head Extension: Full Lungs: Clear to Auscultation, Normal Respiratory Effort Cardiovascular: Regular Rate, Regular Rhythm, No Murmurs - Imaging/EKG Impressions: on chart - Allergies Allergies/Adverse Reactions: Allergies Allergy/AdvReac Type Severity Reaction Status Date / Time cefixime [From Suprax] Allergy Mild Itching Verified 08/03/17 12:28 baclofen Allergy Itching Verified 08/03/17 12:28 - Blood Blood Available: No Product(s) Available: None - Anesthesia Plan Pre-Op Medication Ordered: None - Acknowledgements Anesthesia Type Planned: MAC Pt an Appropriate Candidate for the Planned Anesthesia: Yes Alternatives and Risks of Anesthesia Discussed w Pt/Guardian: Yes Pt/Guardian Understands and Agrees with Anesthesia Plan: Yes PreAnesthesia Questionnaire HEENT History: Reports: None Cardiovascular History: Reports: Hypertension Respiratory History: Reports: Intubation, Previous Gastrointestinal History: Reports: Other (See Below) Other Gastrointestinal History: abdominal pain Genitourinary History: Reports: Neurogenic Bladder, UTI, Recurrent Other Genitourinary History: suprapubic catheter, acute kidney injury, chronic UTI 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 Most recent back surgery was in March of 2015. Pt has some post surgical complications with numbness and tingling in lower legs and unable to ambulate unless she is using a walker. 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, arachnoiditis, encephalopathy, back surgery x4, right frontal ventriculostomy Psychiatric History: Reports: Anxiety, Depression Endocrine/Metabolic History: Reports: Hypothyroidism Hematologic History: Reports: None Immunologic History: Reports: None Oncologic (Cancer) History: Reports: None Dermatologic History: Reports: None - Infectious Disease History Infectious Disease History: Reports: Chicken Pox, Measles - Past Surgical History Head Surgeries/Procedures: Reports: None HEENT Surgical History: Reports: Oral Surgery, Tonsillectomy Other HEENT Surgeries/Procedures: dentures Cardiovascular Surgical History: Reports: None Respiratory Surgical History: Reports: None GI Surgical History: Reports: None Female Surgical History: Reports: Hysterectomy, Suprapubic Catheter Placement Endocrine Surgical History: Reports: Thyroidectomy Neurological Surgical History: Reports: Lumbar Spine Other Neurological Surgeries/Procedures: brain biopsy two years ago while intubated d/t "white spots on the brain" and "fluid was drained from brain" Oncologic Surgical History: Reports: None Dermatological Surgical History: Reports: None - SUBSTANCE USE Smoking Status *Q: Former Smoker Tobacco Use Within Last Twelve Months: Cigarettes Second Hand Smoke Exposure: No Days Per Week of Alcohol Use: 0 Recreational Drug Use History: No - HOME MEDS Home Medications: Home Meds HYDROmorphone [Dilaudid] 4 mg PO Q4H PRN 03/21/17 [History] Pregabalin [Lyrica] 150 mg PO TID 03/21/17 [History] Levothyroxine 150 mcg PO ACBREAKFAST #30 tablet 03/28/17 [Rx] Acetaminophen [Tylenol] 650 mg PO Q4H PRN 08/03/17 [History] Lactulose 15 ml PO QAM 08/03/17 [History] Lidocaine HCl [Aspercreme] 1 dose TOP ASDIRECTED PRN 08/03/17 [History] Loperamide [Imodium AD] 2 mg PO ASDIRECTED PRN 08/03/17 [History] Naproxen Sodium [Aleve] 440 mg PO DAILY 08/03/17 [History] Polyethylene Glycol 3350 [MiraLAX] 17 g PO DAILY 08/03/17 [History] Sennosides [Senna] 8.6 mg PO ASDIRECTED PRN 08/03/17 [History] tiZANidine HCl [Zanaflex] 6 mg PO TID 08/03/17 [History] traZODone HCl [Trazodone HCl] 100 mg PO BEDTIME 08/03/17 [History] - CURRENT (IN HOUSE) MEDS Current Meds: Current Medications Lactated Ringer's (Ringers, Lactated) 1,000 mls @ 125 mls/hr IV ASDIRECTED SHAW[facility] Lidocaine/Sodium Bicarbonate (Buffered Lidocaine 1% In Ns 8.4%) 0.25 ml IV ONETIME PRN PRN Reason: Prior to IV Start Sodium Chloride (Saline Flush) 10 ml FLUSH ASDIRECTED PRN PRN Reason: Keep Vein Open Discontinued Medications Fentanyl (Sublimaze) Confirm Administered Dose 100 mcg .ROUTE .STK-MED ONE Stop: 08/04/17 07:25 Lactated Ringer's (Ringers, Lactated) 1,000 mls @ 125 mls/hr IV ASDIRECTED [facility] Stop: 07/25/17 23:00 Lidocaine HCl (Xylocaine-Mpf 1%) Confirm Administered Dose 4 mls @ as directed .ROUTE .STK-MED ONE Stop: 08/04/17 07:25 Lidocaine/Sodium Bicarbonate (Buffered Lidocaine 1% In Ns 8.4%) 0.25 ml IV ONETIME PRN PRN Reason: Prior to IV Start Stop: 07/25/17 18:00 Midazolam HCl (Versed 1 Mg/Ml) Confirm Administered Dose 2 mg .ROUTE .STK-MED ONE Stop: 08/04/17 07:25 Propofol (Diprivan 20 Ml) Confirm Administered Dose 200 mg .ROUTE .STK-MED ONE Stop: 08/04/17 07:24 Sodium Chloride (Saline Flush) 10 ml FLUSH ASDIRECTED PRN PRN Reason: Keep Vein Open Stop: 07/25/17 18:00
[2017-08-04] MEDS ORDERED: ePHEDrine 50 MG/ML SDV ONE (08:37)
--- NOTE | 2017-08-04 09:15 | PCM.OPNOTE ---
- General Post-Op/Procedure Note Date of Surgery/Procedure: 08/04/17 Operative Procedure(s): colonoscopy to cecum Pre Op Diagnosis: change in bowel habits Post-Op Diagnosis: Same Anesthesia Technique: MAC Primary Surgeon: Delfino Kirk EBL in mLs: 0 Complications: None Condition: Good
[2017-08-04 10:34] VITALS: BP 113/61
--- NOTE | 2017-08-04 14:22 | OR ---
DATE OF OPERATION: 08/04/2017 SURGEON: Delfino Kirk MD PREOPERATIVE DIAGNOSIS: Change in bowel habits. POSTOPERATIVE DIAGNOSIS: Change in bowel habits. OPERATION PERFORMED: Colonoscopy to cecum. FINDINGS: Normal study. RECOMMENDATION: Repeat colonoscopy in 10 years. DESCRIPTION OF PROCEDURE: The patient was taken to the endoscopy room, placed in a supine position, connected to monitoring equipment, given IV sedation, and placed in the left lateral position. Perianal area was inspected and was unremarkable. Rectal exam showed adequate tone. A video Olympus colonoscope was then introduced into the rectum and threaded up without problem to the cecum, where the appendicular orifice and ileocecal valve were noted. Prep was excellent and [place] cleansing score grade B. The scope was slowly withdrawn showing the cecum, ascending colon, transverse colon, descending colon, sigmoid colon, and rectum. The patient tolerated the procedure, was sent to recovery room in a stable condition, and will be followed up as needed in the clinic. ANESTHESIA: ESTIMATED BLOOD LOSS: MMODAL /[id number]
== END 2017-08-04 10:07 | disposition home or self-care (01) ==
LOC: JD.SDS 06:36
PROVIDERS: ATTEND Surgery
DX: R19.4 Change in bowel habit (principal); K59.09 Other constipation; F32.9 Major depressive disorder, single episode, unspecified; M54.5 Low back pain; I10 Essential (primary) hypertension; F41.9 Anxiety disorder, unspecified; E03.9 Hypothyroidism, unspecified; Z90.710 Acquired absence of both cervix and uterus; Z98.890 Other specified postprocedural states; Z79.899 Other long term (current) drug therapy; Z88.1 Allergy status to other antibiotic agents; Z88.8 Allergy status to other drugs, medicaments and biological substances; Z90.89 Acquired absence of other organs; Z87.891 Personal history of nicotine dependence
CPT/HCPCS: 45378; J2250; J3010; J7120; 00810; J2704

== ENCOUNTER 2018-10-16 15:37 | Emergency (ER) | payer MEDICAID ==
[2018-10-16 15:46] VITALS: BP 105/84
--- NOTE | 2018-10-16 16:34 | EDM.PDOC ---
ED HPI GENERAL MEDICAL PROBLEM - General Chief Complaint: Neurological Problem Stated Complaint: [facility] Time Seen by Provider: 10/16/18 16:03 Source of Information: Reports: Patient, EMS, RN Notes Reviewed - History of Present Illness INITIAL COMMENTS - FREE TEXT/NARRATIVE: 53-year-old female who's been brought here by ambulance after she is reported to have "been unresponsive at the [facility]. She had been given a dose of Dilaudid pain medication and then a short time after that "became unresponsive. They state her O2 sats dropped to about 76%. She is not normally on oxygen. With oxygen her sats did come back up. EMS did give her a dose of Narcan in route to ED and now she is drowsy but awake upon arrival to ED. She does not remember any of this. Denied chest pain, cough difficulty breathing at this time. She states she has had headache yesterday and today. She also believes she does have "some type of infection" she does have an indwelling Carter catheter. She apparently does have history of paraplegia and that would be muñoz she is in the detention at her relatively young age. She does have chronic low back pain which is why she is on the Dilaudid 2 mg every 4 hours when necessary. - Related Data Allergies Allergy/AdvReac Type Severity Reaction Status Date / Time cefixime [From Suprax] Allergy Mild Itching Verified 10/17/18 00:19 baclofen Allergy Itching Verified 10/17/18 00:19 Home Meds: Home Meds HYDROmorphone [Dilaudid] 2 mg PO Q4H PRN 03/21/17 [History] Pregabalin [Lyrica] 150 mg PO TID 03/21/17 [History] Levothyroxine 150 mcg PO ACBREAKFAST #30 tablet 03/28/17 [Rx] Acetaminophen [Tylenol] 650 mg PO Q4H PRN 08/03/17 [History] Loperamide [Imodium AD] 2 mg PO ASDIRECTED PRN 08/03/17 [History] Naproxen Sodium [Aleve] 440 mg PO BEDTIME 08/03/17 [History] Polyethylene Glycol 3350 [MiraLAX] 17 g PO DAILY 08/03/17 [History] Sennosides [Senna] 8.6 mg PO ASDIRECTED PRN 08/03/17 [History] traZODone HCl [Trazodone HCl] 100 mg PO BEDTIME 08/03/17 [History] Alpha Lipoic Acid 300 mg PO BEDTIME 10/16/18 [History] Baclofen 20 mg PO TID 10/16/18 [History] Bisacodyl 10 mg RC DAILY 10/16/18 [History] Ciprofloxacin HCl [Cipro] 500 mg PO BID 10/16/18 [History] LORazepam [Ativan] 0.5 mg PO BEDTIME 10/16/18 [History] SUMAtriptan Succinate [Imitrex] 100 mg PO BID 10/16/18 [History] Past Medical History HEENT History: Reports: None Cardiovascular History: Reports: Hypertension Respiratory History: Reports: Intubation, Previous Gastrointestinal History: Reports: Other (See Below) Other Gastrointestinal History: abdominal pain Genitourinary History: Reports: Neurogenic Bladder Other Genitourinary History: suprapubic catheter, acute kidney injury, chronic UTI DOCK ATTENDANT History: Reports: Musculoskeletal History: Reports: Back Pain, Chronic, Fracture Other Musculoskeletal History: 3 back surgeries. Most recent back surgery was in March of 2015. Pt has some post surgical complications with numbness and tingling in lower legs and unable to ambulate unless she is using a walker. 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, arachnoiditis, encephalopathy, back surgery x4, right frontal ventriculostomy Psychiatric History: Reports: Anxiety, Depression Endocrine/Metabolic History: Reports: Hypothyroidism Hematologic History: Reports: None Immunologic History: Reports: None Oncologic (Cancer) History: Reports: None Dermatologic History: Reports: None - Infectious Disease History Infectious Disease History: Reports: Chicken Pox, Measles - Past Surgical History Head Surgeries/Procedures: Reports: None HEENT Surgical History: Reports: Oral Surgery, Tonsillectomy Cardiovascular Surgical History: Reports: None Respiratory Surgical History: Reports: None GI Surgical History: Reports: None Female Surgical History: Reports: Hysterectomy, Suprapubic Catheter Placement Endocrine Surgical History: Reports: Thyroidectomy Neurological Surgical History: Reports: Lumbar Spine Oncologic Surgical History: Reports: None Dermatological Surgical History: Reports: None Social & Family History - Tobacco Use Smoking Status *Q: Current Every Day Smoker Years of Tobacco use: 20 Packs/Tins Daily: 0.5 - Caffeine Use Caffeine Use: Reports: None - Recreational Drug Use Recreational Drug Use: No - Living Situation & Occupation Living situation: Reports: , with Significant Other (Boyfriend) Occupation: Disabled ED ROS GENERAL - Review of Systems Review Of Systems: See Below (of note patient does not remember incident, the information we have of incident is from EMS and [facility] nurse) Constitutional: Denies: Fever, Chills HEENT: Reports: No Symptoms Respiratory: Denies: Shortness of Breath (not short of breath at time of exam) Cardiovascular: Denies: Chest Pain GI/Abdominal: Denies: Abdominal Pain, Nausea, Vomiting Musculoskeletal: Reports: Back Pain (chronic) Skin: Reports: No Symptoms Neurological: Reports: Other (chronic paralysis lower extrem) ED EXAM, NEURO - Physical Exam Exam: See Below Exam Limited By: No Limitations General Appearance: No Apparent Distress, Other (Mildly drowsy but awake when I walk into the room, answering questions appropriately) Eye Exam: Bilateral Eye: PERRL Ears: Normal External Exam Nose: Normal Inspection Throat/Mouth: Normal Inspection Neck: Supple Respiratory/Chest: No Respiratory Distress, Lungs Clear, Normal Breath Sounds. No: Rhonchi, Wheezing Cardiovascular: Regular Rate, Rhythm GI/Abdominal: Soft, Non-Tender Neurological: Oriented x 3, Other (normal upper extrem strength, motion) Extremities: No: Pedal Edema Skin Exam: Warm, Dry, Normal Color Course - Vital Signs Last Recorded V/S: Last Vital Signs Temp 98.4 F 10/16/18 15:42 Pulse 94 10/16/18 15:42 Resp 16 10/16/18 15:42 BP 105/84 10/16/18 15:42 Pulse Ox 89 L 10/16/18 15:42 - Orders/Labs/Meds Labs: Laboratory Tests 10/16/18 10/16/18 Range/Units 17:40 17:40 WBC 8.30 (3.98-10.04) K/mm3 RBC 6.14 H (3.98-5.22) M/mm3 Hgb 17.8 H (11.2-15.7) gm/L Hct 57.4 H (34.1-44.9) % MCV 93.5 (79.4-94.8) fl MCH 29.0 (25.6-32.2) pg MCHC 31.0 L (32.2-35.5) g/dl RDW Std Deviation 54.8 H (36.4-46.3) fL Plt Count 136 L (182-369) K/mm3 MPV 10.9 (9.4-12.3) fl Neut % (Auto) 68.9 (34.0-71.1) % Lymph % (Auto) 21.7 (19.3-51.7) % Guthrie % (Auto) 8.6 (4.7-12.5) % Eos % (Auto) 0.1 L (0.7-5.8) Baso % (Auto) 0.2 (0.1-1.2) % Neut # (Auto) 5.72 (1.56-6.13) K/mm3 Lymph # (Auto) 1.80 (1.18-3.74) K/mm3 Guthrie # (Auto) 0.71 H (0.24-0.36) K/mm3 Eos # (Auto) 0.01 L (0.04-0.36) K/mm3 Baso # (Auto) 0.02 (0.01-0.08) K/mm3 Manual Slide Review Normal smear Sodium 145 (136-145) mEq/L Potassium 5.2 H (3.5-5.1) mEq/L Chloride 107 (98-107) mEq/L Carbon Dioxide 31 (21-32) mEq/L Anion Gap 12.2 (5-15) BUN 25 H (7-18) mg/dL Creatinine 1.0 (0.55-1.02) mg/dL Est Cr Clr Drug Dosing 66.43 mL/min Estimated GFR (MDRD) 58 (>60) mL/min BUN/Creatinine Ratio 25.0 H (14-18) Glucose 108 H (74-106) mg/dL Calcium 9.4 (8.5-10.1) mg/dL Total Bilirubin 0.5 (0.2-1.0) mg/dL AST 22 (15-37) U/L ALT 22 (14-59) U/L Alkaline Phosphatase 152 H (46-116) U/L Total Protein 7.8 (6.4-8.2) g/dl Albumin 3.6 (3.4-5.0) g/dl Globulin 4.2 gm/dL Albumin/Globulin Ratio 0.9 L (1-2) Meds: Medications Discontinued Medications Generic Name Dose Route Start Last Admin Trade Name Delta PRN Reason Stop Dose Admin Hydromorphone HCl 1 mg 10/16/18 21:21 10/16/18 21:38 Dilaudid IVPUSH 10/16/18 21:22 1 mg ONETIME ONE Administration - Re-Assessments/Exams Free Text/Narrative Re-Assessment/Exam: 10/17/18 12:05 patient was awake, relatively alert on arrival to ED. Is reported to have awakened after unknown dose of narcan. Labs came back relatively normal, WBC not elevated. Head CT was done due to hx of AMS, report of Fuentes yesterday and today which was normal. When it was time to send her back patient wanted to know about treatment for "UTI" I called the [facility] for information, no answer on 2 attempts. I than did talk to Dr Coello, her medical provider who had no knowledge of a UTI, no concerns for UTI without current sx, no intention of wanting to treat a colonized chronic carter catheter not causing sx. I than also mentioned the problem of unreponsive episode after dose of 2 mg oral dilaudid. The advise from Dr Ramirez was to go ahead and stop the dilaudid. When the [facility] charge nurse heard this they refused to take patient back. Our Nurse fleet sales manager and home service director had to get involved and after multiple conversations it was agreed for her to go back at reduced dosage of dilaudid for the night, 1 mg q 4 hr prn vs the prior 2 mg and than work out a further plan Tuesday at a more appropriate time Departure - Departure Time of Disposition: 19:22 Disposition: DC/Tfer to [facility] Condition: Fair Clinical Impression: Altered mental status Qualifiers: Altered mental status type: coma Coma timing: in the field (EMT or ambulance) Opiate or related narcotic overdose Qualifiers: Encounter type: initial encounter Injury intent: accidental or unintentional Qualified Code(s): T40.601A - Poisoning by unspecified narcotics, accidental ( unintentional), initial encounter - Discharge Information Instructions: Opioid Overdose Referrals: Jd Cao MD [Primary Care Provider] - Forms: ED Department Discharge Additional Instructions: On arrival to ED patient was mildly drowsy but awake, answering questions appropriately. She has become more alert and back to what appears to be normal mental status after 3 hours of time in the emergency department. We also did do a CT of her head due to headache that she has had yesterday and and today and that was normal. It is our understanding that she was given Narcan, dosage unknown by EMS in route to our emergency department and after that she "started waking up". I have discussed the event of this afternoon with Dr. Coello and his instruction at this time is to "stop the Dilaudid completely" she is likely going to need something else for her chronic low back pain. I would advise giving Tylenol every 6 to8 hours during the night. Continue aleve as prescribed. The patient has questioned us about possible UTI. Dr. Prince has no knowledge of this. At this point unless she has fever or other symptoms of UTI he does not want to be treating a colonized chronic indwelling Carter catheter. We did check white blood count and chemistries this evening and they are normal. Her white blood count is not elevated. She is not running a fever. Please call Dr. Cao for further questions or orders as needed. 19:55. I have been advised by Magnolia's nurse that after conversation with the home service director for [facility] "they do not want Valentine back if she is to be off of pain medication compltetely with concern about treating her pain and more concern about opiate withdrawal. I discussed this with Zandra, charge nurse on duty for tonight. We have agreed that for tonight we will go to a reduced dose each of Dilaudid 1 mg every 4 hours when necessary severe pain. Further pain, medication management will need to be worked out tomorrow morning between nursing staff and , her regular medical provider.
--- NOTE | 2018-10-16 17:05 | CT ---
Head CT Technique: Multiple axial sections through the brain were obtained. Intravenous contrast was not utilized. Comparison: Previous head CT study of 03/17/18. Findings: Ventricles along with basal cisterns and sulci over the convexities are within normal limits for the patient's age. Low density areas are noted within the convexities of the posterior left and right parietal region as well as posterior right frontal region which remains stable from prior CT exam. Incidental calcification within the interhemispheric falx is seen posteriorly. No other abnormal parenchymal densities are seen. No evidence of intracranial hemorrhage. No midline shift or mass effect is seen. Bone window settings were reviewed which shows the visualized sinuses to appear clear. No acute calvarial abnormality is seen. Previous right sided johnny hole is incidentally noted. Impression: 1. Findings as noted above which remain stable from prior head CT exam. 2. No acute intracranial abnormality is identified on noncontrast head CT study. Diagnostic code #2
[2018-10-16] MEDS ORDERED: HYDROmorphone 1 MG/ML Syringe IVPUSH ONE (21:21)
--- NOTE | 2018-10-17 08:40 | CR ---
Chest: Portable view of the chest was obtained. Comparison: Prior chest x-ray of 03/17/[address] chest of 03/17/18. Heart size and mediastinum are within normal limits for portable technique. Lungs are clear with no acute parenchymal change. Bony structures are grossly intact. Impression: 1. Nothing acute is seen on portable chest x-ray. Diagnostic code #1
== END 2018-10-16 22:10 ==
LOC: JD.ED 15:37
DX: T40.601A Poisoning by unspecified narcotics, accidental (unintentional), initial encounter (principal); F17.210 Nicotine dependence, cigarettes, uncomplicated; I10 Essential (primary) hypertension; F41.9 Anxiety disorder, unspecified; F32.9 Major depressive disorder, single episode, unspecified; E03.9 Hypothyroidism, unspecified; Z79.899 Other long term (current) drug therapy
CPT/HCPCS: 36415; 70450; 71045; 80053; 85025; 96372; 99285; J1170; 99284

== ENCOUNTER 2018-11-17 16:22 | Inpatient (IN) | payer MEDICAID ==
[2018-11-17] MEDS ORDERED: Lactated Ringers 1,000 ML IV SCH (17:15)
--- NOTE | 2018-11-17 18:24 | EDM.PDOC ---
ED HPI GENERAL MEDICAL PROBLEM - General Chief Complaint: Respiratory Problem Stated Complaint: [facility] Time Seen by Provider: 11/17/18 16:44 Source of Information: Reports: Patient, Family, RN Notes Reviewed History Limitations: Reports: No Limitations - History of Present Illness INITIAL COMMENTS - FREE TEXT/NARRATIVE: The patient states that her lips were blue last week, although she denies a recent history of cough, dyspnea, chest pain, or palpitations. She states that she has a piercing pain felt all over her head since last week. It is momentary when present, but may occur up to 15 times every 10 minutes. It tends to come and go. She also states that she has been forgetting every little thing, has been generally weak, and had a decreased appetite, all since last week. 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 She has a suprapubic catheter for a neurogenic bladder. The patient's family states that the patient has had similar symptoms of altered mental status whenever she has a urinary tract infection. The patient's medical record indicates that she has a history of hypoxemic respiratory failure, although the etiology of this is not documented. I am notified that the patient's oxygen saturation was 82% on room air per EMS, 97% on 2 L. Upon arrival to the ED, her oxygen saturation was 100% on 10 L per nonrebreather mask. Now in the ED, her oxygen saturation appears to be 83% on room air, 91% on 2 L per nasal cannula. The patient's PCP is Dr. Cao. Her Urologist is Dr. Hernandez. Head Pain Score (Numeric/FACES): 8 - Related Data Allergies Allergy/AdvReac Type Severity Reaction Status Date / Time cefixime [From Suprax] Allergy Mild Itching Verified 11/17/18 16:29 baclofen Allergy Itching Verified 11/17/18 16:29 Home Meds: Home Meds HYDROmorphone [Dilaudid] 2 mg PO Q4H PRN 03/21/17 [History] Pregabalin [Lyrica] 150 mg PO TID 03/21/17 [History] Levothyroxine 150 mcg PO ACBREAKFAST #30 tablet 03/28/17 [Rx] Acetaminophen [Tylenol] 650 mg PO Q4H PRN 08/03/17 [History] Loperamide [Imodium AD] 2 mg PO ASDIRECTED PRN 08/03/17 [History] Naproxen Sodium [Aleve] 440 mg PO BEDTIME 08/03/17 [History] Polyethylene Glycol 3350 [MiraLAX] 17 g PO DAILY 08/03/17 [History] Sennosides [Senna] 8.6 mg PO ASDIRECTED PRN 08/03/17 [History] traZODone HCl [Trazodone HCl] 100 mg PO BEDTIME 08/03/17 [History] Alpha Lipoic Acid 300 mg PO BEDTIME 10/16/18 [History] Baclofen 20 mg PO TID 10/16/18 [History] Bisacodyl 10 mg RC DAILY 10/16/18 [History] Ciprofloxacin HCl [Cipro] 500 mg PO BID 10/16/18 [History] LORazepam [Ativan] 0.5 mg PO BEDTIME 10/16/18 [History] SUMAtriptan Succinate [Imitrex] 100 mg PO BID 10/16/18 [History] Past Medical History Cardiovascular History: Reports: Hypertension Genitourinary History: Reports: Neurogenic Bladder, Other (See Below) (Nephritis ) [employer] History: Reports: Neurological History: Reports: Migraines, Other (See Below) (T6 paralysis x Mar 2018) Psychiatric History: Reports: Anxiety, Depression Endocrine/Metabolic History: Reports: Hypothyroidism, Obesity/BMI 30+ Dermatologic History: Reports: Other (See Below) (Buttock DU) - Infectious Disease History Infectious Disease History: Reports: Chicken Pox, Measles - Past Surgical History Head Surgeries/Procedures: Reports: Other (See Below) (Right frontal ventriculostomy) HEENT Surgical History: Reports: Oral Surgery (wisdom teeth extraction), Tonsillectomy Female Surgical History: Reports: Hysterectomy (partial), Suprapubic Catheter Placement Endocrine Surgical History: Reports: Thyroidectomy (partial) Neurological Surgical History: Reports: Lumbar Spine (x 4) Social & Family History - Tobacco Use Smoking Status *Q: Current Every Day Smoker Years of Tobacco use: 42 Packs/Tins Daily: 0.5 - Caffeine Use Caffeine Use: Reports: None - Alcohol Use Alcohol Use History: No - Recreational Drug Use Recreational Drug Use: No - Living Situation & Occupation Living situation: Reports: , with Significant Other (Boyfriend) Occupation: Disabled ED ROS GENERAL - Review of Systems Review Of Systems: ROS reveals no pertinent complaints other than HPI. ED EXAM, GENERAL - Physical Exam Exam: See Below Exam Limited By: No Limitations General Appearance: Alert, WD/WN, No Apparent Distress Eye Exam: Bilateral Eye: EOMI, Normal Inspection Ears: Normal External Exam, Hearing Grossly Normal Nose: Normal Inspection Throat/Mouth: Normal Inspection, Normal Lips, Normal Voice, No Airway Compromise Head: Atraumatic, Normocephalic Neck: Normal Inspection, Full Range of Motion Respiratory/Chest: No Respiratory Distress, Lungs Clear, Normal Breath Sounds, No Accessory Muscle Use. No: Decreased Breath Sounds, Crackles, Rhonchi, Wheezing, Prolonged Expiration Cardiovascular: Normal Peripheral Pulses, No Edema, No Gallop, No JVD, No Murmur , No Rub, Tachycardia (regular) Peripheral Pulses: 4+: Radial (L), Radial (R) GI/Abdominal: Normal Bowel Sounds, Soft, Non-Tender, No Organomegaly, No Distention, No Abnormal Bruit, No Mass, Other (Obese) (Female) Exam: Deferred Rectal (Female) Exam: Deferred Back Exam: Normal Inspection, Full Range of Motion, NT Extremities: Normal Inspection, No Pedal Edema, Normal Capillary Refill Neurological: Alert, Oriented, CN II-XII Intact, Other (T6 paralysis) Psychiatric: Flat Affect Skin Exam: Warm, Dry, Intact, Normal Color, No Rash EKG INTERPRETATION EKG Date: 11/17/18 Time: 17:48 Rhythm: Other (Junctional tachycardia) Rate (Beats/Min): 134 [place]: Normal P-Wave: Absent QRS: Normal (Early transition) ST-T: Normal QT: Normal Comparison: Change From Previous EKG (Was in NSR 03/17/2018) Course - Vital Signs Last Recorded V/S: Last Vital Signs Temp 36.7 C 11/17/18 16:30 Pulse 128 H 11/17/18 16:30 Resp 20 11/17/18 16:30 BP 104/80 11/17/18 16:30 Pulse Ox 97 11/17/18 16:30 - Orders/Labs/Meds Orders: Active Orders 24 hr Category Date Time Status EKG Documentation Completion [RC] STAT Care 11/17/18 17:08 Active EKG Documentation Completion [RC] STAT Care 11/17/18 19:32 Active Chest 1V Frontal [CR] Stat Exams 11/17/18 17:08 Taken CULTURE BLOOD [BC] Stat Lab 11/17/18 17:08 Ordered CULTURE BLOOD [BC] Stat Lab 11/17/18 17:44 Received CULTURE URINE [RM] Stat Lab 11/17/18 18:25 Received Lactated Ringers [Ringers, Lactated] 1,000 ml Med 11/17/18 17:15 Active IV ASDIRECTED Sodium Chloride 0.9% [Normal Saline] 100 ml Med 11/17/18 19:00 Active IV ASDIRECTED Blood Culture x2 Reflex Set [OM.PC] Stat Oth 11/17/18 17:08 Ordered Medication Orders Lactated Ringer's (Ringers, Lactated) 1,000 mls @ 150 mls/hr IV ASDIRECTED SHAWNA Last Admin: 11/17/18 17:56 Dose: 150 mls/hr Sodium Chloride (Normal Saline) 100 mls @ 75 mls/hr IV ASDIRECTED SHAWNA Last Admin: 11/17/18 19:20 Dose: 75 mls/hr Labs: Laboratory Tests 11/17/18 11/17/18 11/17/18 Range/Units 17:08 17:44 17:44 WBC 8.36 (3.98-10.04) K/mm3 RBC 6.45 H (3.98-5.22) M/mm3 Hgb 18.6 H (11.2-15.7) gm/L Hct 57.5 H (34.1-44.9) % MCV 89.1 (79.4-94.8) fl MCH 28.8 (25.6-32.2) pg MCHC 32.3 (32.2-35.5) g/dl RDW Std Deviation 54.2 H (36.4-46.3) fL Plt Count 110 L (182-369) K/mm3 MPV 11.5 (9.4-12.3) fl Neutrophils % (Manual) 71 H (40-60) % Band Neutrophils % 0 (0-10) % Lymphocytes % (Manual) 28 (20-40) % Atypical Lymphs % 0 % Monocytes % (Manual) 1 L (2-10) % Eosinophils % (Manual) 0 L (0.7-5.8) % Basophils % (Manual) 0 L (0.1-1.2) Platelet Estimate Decreased Plt Morphology Comment See note RBC Morph Comment Normal D-Dimer, Quantitative 1.39 H (0.19-0.50) mg/L Puncture Site Lt radial ABG pH 7.41 (7.35-7.45) ABG pCO2 46.5 H (35.0-45.0) mmHg ABG pO2 56.0 L (80.0-100.0) mmHg ABG HCO3 28.5 H (22.0-26.0) meq/L ABG O2 Saturation 89.4 L (96.0-97.0) % ABG Base Excess 3.4 H (-2-2.0) Ja Test Positive O2 Delivery Device Nasal cannula Oxygen Flow Rate 2.0 FiO2 0.00 L (21.00-100.00) % Sodium (136-145) mEq/L Potassium (3.5-5.1) mEq/L Chloride (98-107) mEq/L Carbon Dioxide (21-32) mEq/L Anion Gap (5-15) BUN (7-18) mg/dL Creatinine (0.55-1.02) mg/dL Est Cr Clr Drug Dosing mL/min Estimated GFR (MDRD) (>60) mL/min BUN/Creatinine Ratio (14-18) Glucose (74-106) mg/dL Lactic Acid (0.4-2.0) mmol/L Calcium (8.5-10.1) mg/dL Magnesium (1.8-2.4) mg/dl Total Bilirubin (0.2-1.0) mg/dL AST (15-37) U/L ALT (14-59) U/L Alkaline Phosphatase (46-116) U/L Troponin I (0.00-0.056) ng/mL Total Protein (6.4-8.2) g/dl Albumin (3.4-5.0) g/dl Globulin gm/dL Albumin/Globulin Ratio (1-2) Urine Color (Yellow) Urine Appearance (Clear) Urine pH (5.0-8.0) Ur Specific [place] (1.005-1.030) Urine Protein (Negative) Urine Glucose (UA) (Negative) Urine Ketones (Negative) Urine Occult Blood (Negative) Urine Nitrite (Negative) Urine Bilirubin (Negative) Urine Urobilinogen (0.2-1.0) Ur Leukocyte Esterase (Negative) Urine RBC (0-5) /hpf Urine WBC (0-5) /hpf Ur Epithelial Cells (0-5) /hpf Amorphous Sediment (NOT SEEN) /hpf Urine Bacteria (FEW) /hpf Urine Mucus (FEW) /hpf 11/17/18 11/17/18 11/17/18 Range/Units 17:44 17:44 18:25 WBC (3.98-10.04) K/mm3 RBC (3.98-5.22) M/mm3 Hgb (11.2-15.7) gm/L Hct (34.1-44.9) % MCV (79.4-94.8) fl MCH (25.6-32.2) pg MCHC (32.2-35.5) g/dl RDW Std Deviation (36.4-46.3) fL Plt Count (182-369) K/mm3 MPV (9.4-12.3) fl Neutrophils % (Manual) (40-60) % Band Neutrophils % (0-10) % Lymphocytes % (Manual) (20-40) % Atypical Lymphs % % Monocytes % (Manual) (2-10) % Eosinophils % (Manual) (0.7-5.8) % Basophils % (Manual) (0.1-1.2) Platelet Estimate Plt Morphology Comment RBC Morph Comment D-Dimer, Quantitative (0.19-0.50) mg/L Puncture Site ABG pH (7.35-7.45) ABG pCO2 (35.0-45.0) mmHg ABG pO2 (80.0-100.0) mmHg ABG HCO3 (22.0-26.0) meq/L ABG O2 Saturation (96.0-97.0) % ABG Base Excess (-2-2.0) Ja Test O2 Delivery Device Oxygen Flow Rate FiO2 (21.00-100.00) % Sodium 141 (136-145) mEq/L Potassium 3.7 (3.5-5.1) mEq/L Chloride 100 (98-107) mEq/L Carbon Dioxide 28 (21-32) mEq/L Anion Gap 16.7 H (5-15) BUN 26 H (7-18) mg/dL Creatinine 1.1 H (0.55-1.02) mg/dL Est Cr Clr Drug Dosing 60.39 mL/min Estimated GFR (MDRD) 52 (>60) mL/min BUN/Creatinine Ratio 23.6 H (14-18) Glucose 107 H (74-106) mg/dL Lactic Acid 1.9 (0.4-2.0) mmol/L Calcium 9.7 (8.5-10.1) mg/dL Magnesium 2.1 (1.8-2.4) mg/dl Total Bilirubin 0.7 (0.2-1.0) mg/dL AST 24 (15-37) U/L ALT 28 (14-59) U/L Alkaline Phosphatase 148 H (46-116) U/L Troponin I < 0.017 (0.00-0.056) ng/mL Total Protein 8.6 H (6.4-8.2) g/dl Albumin 3.2 L (3.4-5.0) g/dl Globulin 5.4 gm/dL Albumin/Globulin Ratio 0.6 L (1-2) Urine Color Light yellow (Yellow) Urine Appearance Turbid H (Clear) Urine pH 7.5 (5.0-8.0) Ur Specific [place] 1.015 (1.005-1.030) Urine Protein 2+ H (Negative) Urine Glucose (UA) Negative (Negative) Urine Ketones Negative (Negative) Urine Occult Blood 2+ H (Negative) Urine Nitrite Positive H (Negative) Urine Bilirubin Negative (Negative) Urine Urobilinogen 1.0 (0.2-1.0) Ur Leukocyte Esterase 3+ H (Negative) Urine RBC 0-5 (0-5) /hpf Urine WBC 10-20 H (0-5) /hpf Ur Epithelial Cells 5-10 H (0-5) /hpf Amorphous Sediment Moderate H (NOT SEEN) /hpf Urine Bacteria Many H (FEW) /hpf Urine Mucus Few (FEW) /hpf Meds: Medications Generic Name Dose Route Start Last Admin Trade Name Freq PRN Reason Stop Dose Admin Lactated Ringer's 1,000 mls @ 150 mls/hr 11/17/18 17:15 11/17/18 17:56 Ringers, Lactated IV 150 mls/hr ASDIRECTED SHAWNA Administration Sodium Chloride 100 mls @ 75 mls/hr 11/17/18 19:00 11/17/18 19:20 Normal Saline IV 75 mls/hr ASDIRECTED SHAWNA Administration Discontinued Medications Generic Name Dose Route Start Last Admin Trade Name Jonatanq PRN Reason Stop Dose Admin Diltiazem HCl 5 mg 11/17/18 19:06 Cardizem IVPUSH 11/17/18 19:07 ONETIME STA Diltiazem HCl 125 mg/ Sodium 125 mls @ 10 mls/hr 11/17/18 19:15 Chloride IV TITRATE SHAWNA Protocol 10 MG/HR Iopamidol 100 ml 11/17/18 18:48 11/17/18 19:17 Isovue-370 (76%) IV 11/17/18 18:49 100 ml ONETIME ONE Administration Trimethoprim/Sulfamethoxazole 1 tab 11/17/18 19:35 11/17/18 19:48 Septra Ds PO 11/17/18 19:36 1 tab ONETIME ONE Administration - Re-Assessments/Exams Free Text/Narrative Re-Assessment/Exam: 11/17/18 18:23 The patient's ECG demonstrates a partial tachycardia at 134 bpm The patient's D-dimer has returned elevated at 1.39. I have therefore ordered a CT angiogram of the chest to evaluate for a PE. The patient is already receiving IV fluid. 11/17/18 18:36 Portable chest radiograph reviewed. The cardiac silhouette is within normal limits. No pulmonary vascular congestion. No pleural effusions seen on this AP view. No focal infiltrate. No pneumothorax. Several bilateral sub-centimeters pulmonary nodules incidentally noted. Formal read per the Radiologist pending. 11/17/18 19:07 I have ordered diltiazem 5 mg IVP and a diltiazem drip to start at 10 mg/hr. 11/17/18 19:31 Notified by MN the RN that the patient appears to have converted to a sinus tachycardia, prior to receiving any diltiazem. Her current rate is about 106 bpm. I have therefore ordered discontinuation of the diltiazem, and will order an ECG. 11/17/18 19:35 The patient's urinalysis is consistent with a UTI. I have ordered a urine culture, and will start the patient on Bactrim DS. 11/17/18 19:56 CT angiogram of the chest is read by Dr. Hall as: 1. Partially visualized hydronephrotic right kidney. Etiology is not seen on this exam. 2. Small pericardial effusion. 3. No findings of pulmonary embolism. 4. Other incidental findings as noted above. 11/17/18 20:12 Test results discussed with the patient. As above, the patient has a UTI, but she is also hypoxemic, which I do not have an explanation for. The remainder of her workup was unremarkable. I recommended placement into observation, and the patient agreed. 11/17/18 20:[address] Devine at 20:14. He recommended full admission. Departure - Departure Time of Disposition: 20:15 Disposition: Admitted As Inpatient 64 Condition: Fair Clinical Impression: Hypoxemia UTI (urinary tract infection) Qualifiers: Urinary tract infection type: site unspecified Hematuria presence: without hematuria Qualified Code(s): N39.0 - Urinary tract infection, site not specified - Discharge Information *PRESCRIPTION DRUG MONITORING PROGRAM REVIEWED*: Not Applicable *COPY OF PRESCRIPTION DRUG MONITORING REPORT IN PATIENT DANNY: Not Applicable Referrals: Jd Cao MD [Primary Care Provider] - Eligio Hernandez MD [Ordering Only Provider] - - My Orders Last 24 Hours: My Active Orders 11/17/18 17:08 EKG Documentation Completion [RC] STAT Chest 1V Frontal [CR] Stat CULTURE BLOOD [BC] Stat Blood Culture x2 Reflex Set [OM.PC] Stat 11/17/18 17:15 Lactated Ringers [Ringers, Lactated] 1,000 ml IV ASDIRECTED 11/17/18 17:44 CULTURE BLOOD [BC] Stat 11/17/18 18:25 CULTURE URINE [RM] Stat 11/17/18 19:00 Sodium Chloride 0.9% [Normal Saline] 100 ml IV ASDIRECTED 11/17/18 19:32 EKG Documentation Completion [RC] STAT - Assessment/Plan Last 24 Hours: My Active Orders 11/17/18 17:08 EKG Documentation Completion [RC] STAT Chest 1V Frontal [CR] Stat CULTURE BLOOD [BC] Stat Blood Culture x2 Reflex Set [OM.PC] Stat 11/17/18 17:15 Lactated Ringers [Ringers, Lactated] 1,000 ml IV ASDIRECTED 11/17/18 17:44 CULTURE BLOOD [BC] Stat 11/17/18 18:25 CULTURE URINE [RM] Stat 11/17/18 19:00 Sodium Chloride 0.9% [Normal Saline] 100 ml IV ASDIRECTED 11/17/18 19:32 EKG Documentation Completion [RC] STAT
[2018-11-17] MEDS ORDERED: Iopamidol 755 Mg/ML 200 ML Bottle IV ONE (18:48)
[2018-11-17] MEDS ORDERED: Sodium Chloride 0.9% 100 ML IV SCH (19:00)
[2018-11-17] MEDS ORDERED: Diltiazem 50 MG/10 ML SDV IVPUSH STA (19:06)
[2018-11-17] MEDS ORDERED: Diltiazem 125 MG in Sodium Chloride 0.9% 100 ML IV SCH (19:15)
--- NOTE | 2018-11-17 19:33 | CT ---
CT chest Technique: Multiple axial sections through the chest were obtained. Intravenous contrast was utilized. Study has been performed as a pulmonary angiogram protocol. Comparison: Prior CT chest study also performed as an angiogram protocol dated 03/17/18. Findings: Pulmonary arteries are fairly well-opacified. No filling defects are seen to indicate pulmonary embolism. Stable lymph nod ise noted within the superior mediastinum which is felt to be incidental. Other smaller mediastinal lymph nodes are seen which are also felt to be incidental. Minimal pericardial effusion is seen. Small portion of the visualized upper abdominal structures shows an incidental small fatty lesion within the left kidney. This is felt benign. There is hydronephrosis of the right kidney being seen with etiology not being identified on this exam. No calcified gallstones are seen. Slight atelectasis is seen within both lung bases. Lungs otherwise are clear with no acute parenchymal change. Bone window settings were reviewed which appear within normal limits for the patient's age. Impression: 1. Partially visualized hydronephrotic right kidney. Etiology is not seen on this exam. 2. Small pericardial effusion. 3. No findings of pulmonary embolism. 4. Other incidental findings as noted above. Diagnostic code #3
[2018-11-17] MEDS ORDERED: Sulfamethoxazole/Trimethoprim 800-160 MG Tab PO ONE (19:35)
[2018-11-17] MEDS ORDERED: Loperamide 2 MG Cap PO PRN (22:37)
[2018-11-17] MEDS ORDERED: ALOE VERA TRDERM PRN (22:37)
[2018-11-17] MEDS ORDERED: SUMAtriptan 50 MG Tab PO PRN (22:37)
[2018-11-17] MEDS ORDERED: Ondansetron 4 MG Tab.DIS PO PRN (22:37)
[2018-11-17] MEDS ORDERED: Magnesium Citrate Solution 296 ML Bottle PO PRN (22:37)
[2018-11-17] MEDS ORDERED: Bisacodyl 5 MG Tab PO PRN (22:37)
[2018-11-17] MEDS ORDERED: TROLAMINE SALICYLATE TRDERM PRN (22:37)
[2018-11-17] MEDS ORDERED: HYDROmorphone 2 MG Tab PO PRN (22:37)
[2018-11-17] MEDS ORDERED: Polyethylene Glycol 3350 Powder 17 GM Packet PO PRN (22:37)
[2018-11-17] MEDS ORDERED: Bisacodyl 10 MG Supp RECTAL PRN (22:37)
[2018-11-17] MEDS ORDERED: Albuterol/Ipratropium 3.0-0.5 MG/3 ML Neb Soln NEB PRN (22:39)
[2018-11-17] MEDS ORDERED: Ondansetron 4 MG/2 ML SDV IV PRN (22:39)
[2018-11-18] MEDS ORDERED: Sodium Chloride 0.9% 1,000 ML ONE (00:01)
[2018-11-18] MEDS: LORazepam 0.5 MG Tab PO SCH ×2 (00:10→20:41)
[2018-11-18] MEDS ORDERED: Sodium Chloride 0.9% 1,000 ML IV SCH (00:15)
--- NOTE | 2018-11-18 07:11 | PCM.HP ---
H&P History of Present Illness - General Date of Service: 11/18/18 Admit Problem/Dx: Admission Diagnosis/Problem Admission Diagnosis/Problem Hypoxemia Source of Information: Patient, Old Records, Provider, RN Notes Reviewed History Limitations: Reports: No Limitations, Physical Impairment - History of Present Illness Initial Comments - Free Text/Narative: This is a 53 yo whit female with past medical hx/o HTN, Neurogenic Bladder w/ Suprapubic Catheter, Migraines, CKD Stage 3/Renal Insufficiency, T6 Paralysis/ Paraplegia, Hypothyroidism, Anxiety, Depression, Chronic Pain Syndrome, and Class I Obese who was brought in mainly for acute hypoxia and evaluation of transient cyanosis. She carries no hx/o pulmonary disease but 30 year of smoking cigarettes. She states she now smokes 4 cigarettes a day. She denies being short of breath or dyspneic. She also carries no hx/o cardiac disease. She however states that she has been feeling weak, with decreased appetite and has been forgetting little things. She also report having headaches form time to time. A review of her medical records show, she had a hx/o hypoxemic respiratory failure in the past but she is not O2 dependent and not on any bronchodilators. Per secondary sources, she was found with an O2 sat of 82% on RA but improved to 97% once provided with 2L NC for supplemental O2. On presentation to ED, she was observed to be 83% on RA. Her initial work up in ED shows a CBC remarkable for RBC of 6.45, Hgb of 18.6, 57.5, RDW of 54.2, Platelet of 110, Neutrophils of 71%, and Monocytes of 1L%. Her D-Dimer is 1.39. Her ABG shows a pH of 7.14, pCO2 of 46.5, pO2 of 56, HCO3 of 28.5, and O2 sat of 89.4% on 2L NC. Her Chemistry is significant for AG of 16.7, BUN of 26, Cr of 1.1, BS of 107, Alk Phos of 148, Total Protein of 8.5, and Albumin of 3.2. Her UA is highly suggestive of UTI. Her Chest CTA report reads partially visualized hydronephrotic right kidney. Etiology is not seen on this exam. Small pericardial effusion. No findings of pulmonary embolism. Patient is being admitted for medical treatment of acute hypoxia s/p cyanosis, acute encephalopathy, polypharmacy and catheter related uti. She is full code. Head Pain Score (Numeric/FACES): 8 Generalized Pain Score (Numeric/FACES): 10 - Related Data Allergies/Adverse Reactions: Allergies Allergy/AdvReac Type Severity Reaction Status Date / Time cefixime [From Suprax] Allergy Mild Itching Verified 11/22/18 10:25 Home Medications: Home Meds Acetaminophen [Tylenol] 650 mg PO TID PRN 11/17/18 [History] Alpha Lipoic Acid 300 mg PO DAILY 11/17/18 [History] Baclofen 20 mg PO QID 11/17/18 [History] Bisacodyl 10 mg RC DAILY PRN 11/17/18 [History] Bisacodyl [Dulcolax] 10 mg PO DAILY PRN 11/17/18 [History] HYDROmorphone [Dilaudid] 1 mg PO Q6H PRN 11/17/18 [History] LORazepam [Ativan] 0.5 mg PO BEDTIME 11/17/18 [History] Levothyroxine 150 mcg PO ACBREAKFAST 11/17/18 [History] Loperamide HCl [Imodium A-D] 2 tab PO TID PRN 11/17/18 [History] Magnesium Citrate 150 ml PO TID PRN 11/17/18 [History] Mirtazapine 15 mg PO BEDTIME 11/17/18 [History] Multivitamin [Daily Multiple Vitamin] 1 tab PO DAILY 11/17/18 [History] Naproxen Sodium [Aleve] 2 tab PO BEDTIME 11/17/18 [History] Ondansetron [Zofran ODT] 1 tab PO TID PRN 11/17/18 [History] Polyethylene Glycol 3350 [MiraLAX] 17 g PO TID PRN 11/17/18 [History] Pregabalin [Lyrica] 150 mg PO TID 11/17/18 [History] SUMAtriptan Succinate [Imitrex] 100 mg PO BID PRN 11/17/18 [History] Trolamine Salicylate/Aloe Vera [Aspercreme 10% Cream] 1 appful TRDERM QID PRN [History] Mupirocin Oint [Bactroban Oint] 0 gm TOP TID #1 tube 11/21/18 [Rx] Sulfamethoxazole/Trimethoprim [Septra DS] 1 tab PO BID #20 tablet 11/21/18 [Rx] Past Medical History HEENT History: Reports: None Cardiovascular History: Reports: Hypertension Respiratory History: Reports: Intubation, Previous Gastrointestinal History: Reports: Other (See Below) Other Gastrointestinal History: abdominal pain Genitourinary History: Reports: Neurogenic Bladder, Other (See Below) Other Genitourinary History: suprapubic catheter, acute kidney injury, chronic UTI TRAFFIC COORDINATOR History: Reports: Musculoskeletal History: Reports: Fracture Other Musculoskeletal History: 3 back surgeries. Most recent back surgery was in March of 2015. Pt has some post surgical complications with numbness and tingling in lower legs and unable to ambulate unless she is using a walker. 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, arachnoiditis, encephalopathy, back surgery x4, right frontal ventriculostomy Psychiatric History: Reports: Anxiety, Depression Endocrine/Metabolic History: Reports: Hypothyroidism, Obesity/BMI 30+ Hematologic History: Reports: None Immunologic History: Reports: None Oncologic (Cancer) History: Reports: None Dermatologic History: Reports: Other (See Below) Other Dermatologic History: old sore to her buttocks that is still healing - Infectious Disease History Infectious Disease History: Reports: Chicken Pox, Measles - Past Surgical History Head Surgeries/Procedures: Reports: Other (See Below) HEENT Surgical History: Reports: Oral Surgery, Tonsillectomy Cardiovascular Surgical History: Reports: None Respiratory Surgical History: Reports: None GI Surgical History: Reports: None Female Surgical History: Reports: Hysterectomy, Suprapubic Catheter Placement Endocrine Surgical History: Reports: Thyroidectomy Neurological Surgical History: Reports: Lumbar Spine Oncologic Surgical History: Reports: None Social & Family History - Family History Family Medical History: Noncontributory - Tobacco Use Smoking Status *Q: Unknown Ever Smoked Years of Tobacco use: 42 Packs/Tins Daily: 0.5 Second Hand Smoke Exposure: No - Caffeine Use Caffeine Use: Reports: Other - Recreational Drug Use Recreational Drug Use: No - Living Situation & Occupation Living situation: Reports: , with Significant Other (Boyfriend) Occupation: Disabled H&P Review of Systems - Review of Systems: Review Of Systems: See Below General: Reports: Weakness, Decreased Appetite. Denies: Fever, Malaise, Fatigue HEENT: Reports: Headaches. Denies: Contact Lenses, Dysphasia, Ear Pain, Eye Pain, Hearing Changes, Rhinitis, Post Nasal Drip, Sinus Congestion, Sore Throat , Vertigo, Visual Changes Pulmonary: Denies: Shortness of Breath, Cough, Other (cyanotic lips) Cardiovascular: Denies: Chest Pain, Palpitations, Dyspnea on Exertion Gastrointestinal: Reports: Decreased Appetite. Denies: Abdominal Pain, Nausea, Stool Incontinence Genitourinary: Reports: Incontinence, Retention, Other (baseline neurogenic bladder w/ suprapubic catheter) Musculoskeletal: Reports: No Symptoms Skin: Reports: Cyanosis. Denies: Jaundice, Mottled, Pallor, Diaphoresis, Bruising, Rash, Erythema Psychiatric: Denies: Depression, Anxiety, Agitation, Hallucinations Neurological: Reports: Confusion (intermittent ), Headache (chronic intermittent migraine), Pre-Existing Deficit, Difficulty Walking, Weakness, Gait Disturbance. Denies: Numbness, Seizure, Tingling, Tremors, Trouble Speaking Hematologic/Lymphatic: Reports: No Symptoms Immunologic: Reports: No Symptoms Exam - Exam Exam: See Below - Vital Signs Vital Signs: Last Vital Signs Temp 36.7 C 11/17/18 16:30 Pulse 128 H 11/17/18 16:30 Resp 20 11/17/18 16:30 BP 104/80 11/17/18 16:30 Pulse Ox 93 L 11/18/18 05:54 Weight: 96.298 kg - Exam Quality Assessment: Supplemental Oxygen General: Alert, Oriented, Cooperative, Mild Distress HEENT: Conjunctiva Clear, EACs Clear, EOMI, Hearing Intact, Mucosa Moist & [place] , Nares Patent, Normal Nasal Septum, Posterior Pharynx Clear, Pupils Equal, Pupils Reactive, TMs Clear Neck: Supple, Trachea Midline Lungs: Clear to Auscultation, Normal Respiratory Effort Cardiovascular: Regular Rate, Regular Rhythm GI/Abdominal Exam: Normal Bowel Sounds, Soft, Non-Tender, No Organomegaly, No Distention, No Abnormal Bruit (Female) Exam: Other (suprabupic catheter) Back Exam: Normal Inspection, Decreased Range of Motion Extremities: Normal Inspection Peripheral Pulses: 2+: Posterior Tibial (L), Posterior Tibial (R), Dorsalis Pedis (L), Dorsalis Pedis (R) Skin: Warm, Dry, Intact Neuro Extensive - Mental Status: Oriented x3, Normal Cognition, Memory Intact Neuro Extensive - Motor, Sensory, Reflexes: CN II-XII Intact (T6-all the way down to lower extremity: no sensation and no motor skills), Abnormal Gait, Other (Paralyzed: T6-all the down; not able to move her lower extremities ( atleast not durin her exam with me)) Psychiatric: Alert, Normal Affect, Normal Mood - Patient Data Lab Results Last 24 hrs: Laboratory Results - last 24 hr 11/17/18 11/17/18 11/17/18 Range/Units 17:08 17:44 17:44 WBC 8.36 (3.98-10.04) K/mm3 RBC 6.45 H (3.98-5.22) M/mm3 Hgb 18.6 H (11.2-15.7) gm/L Hct 57.5 H (34.1-44.9) % MCV 89.1 (79.4-94.8) fl MCH 28.8 (25.6-32.2) pg MCHC 32.3 (32.2-35.5) g/dl RDW Std Deviation 54.2 H (36.4-46.3) fL Plt Count 110 L (182-369) K/mm3 MPV 11.5 (9.4-12.3) fl Neut % (Auto) (34.0-71.1) % Lymph % (Auto) (19.3-51.7) % [place] % (Auto) (4.7-12.5) % Eos % (Auto) (0.7-5.8) Baso % (Auto) (0.1-1.2) % Neut # (Auto) (1.56-6.13) K/mm3 Lymph # (Auto) (1.18-3.74) K/mm3 [place] # (Auto) (0.24-0.36) K/mm3 Eos # (Auto) (0.04-0.36) K/mm3 Baso # (Auto) (0.01-0.08) K/mm3 Neutrophils % (Manual) 71 H (40-60) % Band Neutrophils % 0 (0-10) % Lymphocytes % (Manual) 28 (20-40) % Atypical Lymphs % 0 % Monocytes % (Manual) 1 L (2-10) % Eosinophils % (Manual) 0 L (0.7-5.8) % Basophils % (Manual) 0 L (0.1-1.2) Platelet Estimate Decreased Plt Morphology Comment See note RBC Morph Comment Normal D-Dimer, Quantitative 1.39 H (0.19-0.50) mg/L Puncture Site Lt radial ABG pH 7.41 (7.35-7.45) ABG pCO2 46.5 H (35.0-45.0) mmHg ABG pO2 56.0 L (80.0-100.0) mmHg ABG HCO3 28.5 H (22.0-26.0) meq/L ABG O2 Saturation 89.4 L (96.0-97.0) % ABG Base Excess 3.4 H (-2-2.0) Ja Test Positive O2 Delivery Device Nasal cannula Oxygen Flow Rate 2.0 FiO2 0.00 L (21.00-100.00) % Sodium (136-145) mEq/L Potassium (3.5-5.1) mEq/L Chloride (98-107) mEq/L Carbon Dioxide (21-32) mEq/L Anion Gap (5-15) BUN (7-18) mg/dL Creatinine (0.55-1.02) mg/dL Est Cr Clr Drug Dosing mL/min Estimated GFR (MDRD) (>60) mL/min BUN/Creatinine Ratio (14-18) Glucose (74-106) mg/dL Lactic Acid (0.4-2.0) mmol/L Calcium (8.5-10.1) mg/dL Magnesium (1.8-2.4) mg/dl Total Bilirubin (0.2-1.0) mg/dL AST (15-37) U/L ALT (14-59) U/L Alkaline Phosphatase (46-116) U/L Troponin I (0.00-0.056) ng/mL Total Protein (6.4-8.2) g/dl Albumin (3.4-5.0) g/dl Globulin gm/dL Albumin/Globulin Ratio (1-2) Urine Color (Yellow) Urine Appearance (Clear) Urine pH (5.0-8.0) Ur Specific [place] (1.005-1.030) Urine Protein (Negative) Urine Glucose (UA) (Negative) Urine Ketones (Negative) Urine Occult Blood (Negative) Urine Nitrite (Negative) Urine Bilirubin (Negative) Urine Urobilinogen (0.2-1.0) Ur Leukocyte Esterase (Negative) Urine RBC (0-5) /hpf Urine WBC (0-5) /hpf Ur Epithelial Cells (0-5) /hpf Amorphous Sediment (NOT SEEN) /hpf Urine Bacteria (FEW) /hpf Urine Mucus (FEW) /hpf MRSA (PCR) 11/17/18 11/17/18 11/17/18 Range/Units 17:44 17:44 18:25 WBC (3.98-10.04) K/mm3 RBC (3.98-5.22) M/mm3 Hgb (11.2-15.7) gm/L Hct (34.1-44.9) % MCV (79.4-94.8) fl MCH (25.6-32.2) pg MCHC (32.2-35.5) g/dl RDW Std Deviation (36.4-46.3) fL Plt Count (182-369) K/mm3 MPV (9.4-12.3) fl Neut % (Auto) (34.0-71.1) % Lymph % (Auto) (19.3-51.7) % [place] % (Auto) (4.7-12.5) % Eos % (Auto) (0.7-5.8) Baso % (Auto) (0.1-1.2) % Neut # (Auto) (1.56-6.13) K/mm3 Lymph # (Auto) (1.18-3.74) K/mm3 [place] # (Auto) (0.24-0.36) K/mm3 Eos # (Auto) (0.04-0.36) K/mm3 Baso # (Auto) (0.01-0.08) K/mm3 Neutrophils % (Manual) (40-60) % Band Neutrophils % (0-10) % Lymphocytes % (Manual) (20-40) % Atypical Lymphs % % Monocytes % (Manual) (2-10) % Eosinophils % (Manual) (0.7-5.8) % Basophils % (Manual) (0.1-1.2) Platelet Estimate Plt Morphology Comment RBC Morph Comment D-Dimer, Quantitative (0.19-0.50) mg/L Puncture Site ABG pH (7.35-7.45) ABG pCO2 (35.0-45.0) mmHg ABG pO2 (80.0-100.0) mmHg ABG HCO3 (22.0-26.0) meq/L ABG O2 Saturation (96.0-97.0) % ABG Base Excess (-2-2.0) Ja Test O2 Delivery Device Oxygen Flow Rate FiO2 (21.00-100.00) % Sodium 141 (136-145) mEq/L Potassium 3.7 (3.5-5.1) mEq/L Chloride 100 (98-107) mEq/L Carbon Dioxide 28 (21-32) mEq/L Anion Gap 16.7 H (5-15) BUN 26 H (7-18) mg/dL Creatinine 1.1 H (0.55-1.02) mg/dL Est Cr Clr Drug Dosing 60.39 mL/min Estimated GFR (MDRD) 52 (>60) mL/min BUN/Creatinine Ratio 23.6 H (14-18) Glucose 107 H (74-106) mg/dL Lactic Acid 1.9 (0.4-2.0) mmol/L Calcium 9.7 (8.5-10.1) mg/dL Magnesium 2.1 (1.8-2.4) mg/dl Total Bilirubin 0.7 (0.2-1.0) mg/dL AST 24 (15-37) U/L ALT 28 (14-59) U/L Alkaline Phosphatase 148 H (46-116) U/L Troponin I < 0.017 (0.00-0.056) ng/mL Total Protein 8.6 H (6.4-8.2) g/dl Albumin 3.2 L (3.4-5.0) g/dl Globulin 5.4 gm/dL Albumin/Globulin Ratio 0.6 L (1-2) Urine Color Light yellow (Yellow) Urine Appearance Turbid H (Clear) Urine pH 7.5 (5.0-8.0) Ur Specific [place] 1.015 (1.005-1.030) Urine Protein 2+ H (Negative) Urine Glucose (UA) Negative (Negative) Urine Ketones Negative (Negative) Urine Occult Blood 2+ H (Negative) Urine Nitrite Positive H (Negative) Urine Bilirubin Negative (Negative) Urine Urobilinogen 1.0 (0.2-1.0) Ur Leukocyte Esterase 3+ H (Negative) Urine RBC 0-5 (0-5) /hpf Urine WBC 10-20 H (0-5) /hpf Ur Epithelial Cells 5-10 H (0-5) /hpf Amorphous Sediment Moderate H (NOT SEEN) /hpf Urine Bacteria Many H (FEW) /hpf Urine Mucus Few (FEW) /hpf MRSA (PCR) 11/17/18 11/18/18 11/18/18 Range/Units 22:15 06:05 06:05 WBC 4.99 (3.98-10.04) K/mm3 RBC 5.43 H (3.98-5.22) M/mm3 Hgb 15.3 (11.2-15.7) gm/L Hct 48.9 H (34.1-44.9) % MCV 90.1 (79.4-94.8) fl MCH 28.2 (25.6-32.2) pg MCHC 31.3 L (32.2-35.5) g/dl RDW Std Deviation 53.2 H (36.4-46.3) fL Plt Count 108 L (182-369) K/mm3 MPV 11.4 (9.4-12.3) fl Neut % (Auto) 65.2 (34.0-71.1) % Lymph % (Auto) 21.0 (19.3-51.7) % [place] % (Auto) 12.2 (4.7-12.5) % Eos % (Auto) 0 L (0.7-5.8) Baso % (Auto) 0.4 (0.1-1.2) % Neut # (Auto) 3.25 (1.56-6.13) K/mm3 Lymph # (Auto) 1.05 L (1.18-3.74) K/mm3 [place] # (Auto) 0.61 H (0.24-0.36) K/mm3 Eos # (Auto) 0.00 L (0.04-0.36) K/mm3 Baso # (Auto) 0.02 (0.01-0.08) K/mm3 Neutrophils % (Manual) (40-60) % Band Neutrophils % (0-10) % Lymphocytes % (Manual) (20-40) % Atypical Lymphs % % Monocytes % (Manual) (2-10) % Eosinophils % (Manual) (0.7-5.8) % Basophils % (Manual) (0.1-1.2) Platelet Estimate Plt Morphology Comment RBC Morph Comment D-Dimer, Quantitative (0.19-0.50) mg/L Puncture Site ABG pH (7.35-7.45) ABG pCO2 (35.0-45.0) mmHg ABG pO2 (80.0-100.0) mmHg ABG HCO3 (22.0-26.0) meq/L ABG O2 Saturation (96.0-97.0) % ABG Base Excess (-2-2.0) Ja Test O2 Delivery Device Oxygen Flow Rate FiO2 (21.00-100.00) % Sodium 142 (136-145) mEq/L Potassium 3.3 L (3.5-5.1) mEq/L Chloride 105 (98-107) mEq/L Carbon Dioxide 29 (21-32) mEq/L Anion Gap 11.3 (5-15) BUN 21 H (7-18) mg/dL Creatinine 1.0 (0.55-1.02) mg/dL Est Cr Clr Drug Dosing 66.43 mL/min Estimated GFR (MDRD) 58 (>60) mL/min BUN/Creatinine Ratio 21.0 H (14-18) Glucose 95 (74-106) mg/dL Lactic Acid (0.4-2.0) mmol/L Calcium 8.5 (8.5-10.1) mg/dL Magnesium 1.9 (1.8-2.4) mg/dl Total Bilirubin (0.2-1.0) mg/dL AST (15-37) U/L ALT (14-59) U/L Alkaline Phosphatase (46-116) U/L Troponin I (0.00-0.056) ng/mL Total Protein (6.4-8.2) g/dl Albumin (3.4-5.0) g/dl Globulin gm/dL Albumin/Globulin Ratio (1-2) Urine Color (Yellow) Urine Appearance (Clear) Urine pH (5.0-8.0) Ur Specific [place] (1.005-1.030) Urine Protein (Negative) Urine Glucose (UA) (Negative) Urine Ketones (Negative) Urine Occult Blood (Negative) Urine Nitrite (Negative) Urine Bilirubin (Negative) Urine Urobilinogen (0.2-1.0) Ur Leukocyte Esterase (Negative) Urine RBC (0-5) /hpf Urine WBC (0-5) /hpf Ur Epithelial Cells (0-5) /hpf Amorphous Sediment (NOT SEEN) /hpf Urine Bacteria (FEW) /hpf Urine Mucus (FEW) /hpf MRSA (PCR) Positive H Result Diagrams: 11/21/18 06:54 11/21/18 07:49 EKG INTERPRETATION EKG Date: 11/17/18 Time: 17:48 Rhythm: Other (Junctional Tachycardia) Rate (Beats/Min): 134 [place]: Normal P-Wave: Absent QRS: Normal ST-T: Normal QT: Normal Comparison: Change From Previous EKG (NSR 03/17/2018) Problem List Initiated/Reviewed/Updated: Yes Orders Last 24hrs: Active Orders 24 hr Category Date Time Status Admission Status [Patient Status] [ADT] Routine ADT 11/17/18 20:30 Active Height and Weight [RC] DAILY Care 11/17/18 22:39 Active Intake and Output [RC] QSHIFT Care 11/17/18 22:39 Active Oxygen Therapy [RC] PRN Care 11/17/18 22:39 Active RT Aerosol Therapy [RC] ASDIRECTED Care 11/17/18 22:42 Active Up With Assistance [RC] ASDIRECTED Care 11/17/18 22:39 Active Up ad Adriane [RC] ASDIRECTED Care 11/17/18 22:39 Active VTE/DVT Education [RC] PER UNIT ROUTINE Care 11/17/18 22:39 Active Vital Signs [RC] Q4H Care 11/17/18 22:39 Active Consult to Case Management/[employer] [CONS] Cons 11/17/18 22:39 Active Routine Consult to Spiritual Care [CONS] Routine Cons 11/17/18 22:39 Active Respiratory Care Assess and Treatment [CONS] Routine Cons 11/17/18 22:39 Active Regular Diet [DIET] Diet 11/17/18 Breakfast Active Chest 1V Frontal [CR] Stat Exams 11/17/18 17:08 Taken BASIC METABOLIC PANEL,BMP [CHEM] AM Lab 11/18/18 06:05 Results BASIC METABOLIC PANEL,BMP [CHEM] AM Lab 11/19/18 05:11 Ordered BASIC METABOLIC PANEL,BMP [CHEM] AM Lab 11/20/18 05:11 Ordered BASIC METABOLIC PANEL,BMP [CHEM] AM Lab 11/21/18 05:11 Ordered C-REACTIVE PROTEIN [CHEM] AM Lab 11/18/18 06:05 Results C-REACTIVE PROTEIN [CHEM] AM Lab 11/19/18 05:11 Ordered C-REACTIVE PROTEIN [CHEM] AM Lab 11/20/18 05:11 Ordered C-REACTIVE PROTEIN [CHEM] AM Lab 11/21/18 05:11 Ordered CBC WITH AUTO DIFF [HEME] AM Lab 11/19/18 05:11 Ordered CBC WITH AUTO DIFF [HEME] AM Lab 11/20/18 05:11 Ordered CBC WITH AUTO DIFF [HEME] AM Lab 11/21/18 05:11 Ordered CULTURE BLOOD [BC] Stat Lab 11/17/18 17:08 Ordered CULTURE BLOOD [BC] Stat Lab 11/17/18 17:44 Received CULTURE URINE [RM] Stat Lab 11/17/18 18:25 Received MAGNESIUM [CHEM] AM Lab 11/18/18 06:05 Results MAGNESIUM [CHEM] AM Lab 11/19/18 05:11 Ordered MAGNESIUM [CHEM] AM Lab 11/20/18 05:11 Ordered MAGNESIUM [CHEM] AM Lab 11/21/18 05:11 Ordered Acetaminophen [Tylenol] Med 11/17/18 22:37 Active 650 mg PO TID PRN Albuterol/Ipratropium [DuoNeb 3.0-0.5 MG/3 ML] Med 11/17/18 22:39 Active 3 ml NEB Q4H PRN Alpha Lipoic Acid [Alpha Lipoic Acid] Med 11/18/18 09:00 Pending 300 mg PO DAILY Baclofen [Lioresal] Med 11/18/18 09:00 Active 25 mg PO QID Bisacodyl [Dulcolax] Med 11/17/18 22:37 Active 10 mg PO DAILY PRN Bisacodyl [Dulcolax] Med 11/17/18 22:37 Active 10 mg RECTAL DAILY PRN Enoxaparin [Lovenox] Med 11/18/18 09:00 Active 40 mg SUBCUT DAILY HYDROmorphone [Dilaudid] Med 11/17/18 22:37 Active 1 mg PO Q6H PRN LORazepam [Ativan] Med 11/17/18 21:00 Active 0.5 mg PO BEDTIME LORazepam [Ativan] Med 11/17/18 22:39 Active 1 mg IV Q6H PRN Levothyroxine Med 11/18/18 06:00 Active 150 mcg PO ACBREAKFAST Loperamide [Imodium] Med 11/17/18 22:37 Active 4 mg PO TID PRN Magnesium Citrate [Citrate of Magnesia] Med 11/17/18 22:37 Active 150 ml PO TID PRN Mirtazapine [Remeron] Med 11/18/18 21:00 Active 15 mg PO BEDTIME Multivitamins,Therapeutic [Thera] Med 11/18/18 09:00 Active 1 each PO DAILY Naproxen Sodium Med 11/18/18 21:00 Pending 2 tab PO BEDTIME Ondansetron [Zofran ODT] Med 11/17/18 22:37 Active 4 mg PO TID PRN Ondansetron [Zofran] Med 11/17/18 22:39 Active 4 mg IV Q6H PRN Polyethylene Glycol 3350 [MiraLAX] Med 11/17/18 22:37 Active 17 gm PO TID PRN Pregabalin [Lyrica] Med 11/18/18 09:00 Active 150 mg PO TID SUMAtriptan Succinate [Imitrex] Med 11/17/18 22:37 Pending 100 mg PO BID PRN Saccharomyces Boulardii [Florastor] Med 11/18/18 09:00 Active 250 mg PO DAILY Sodium Chloride 0.9% [Normal Saline] 1,000 ml Med 11/18/18 00:15 Active IV ASDIRECTED Trolamine Salicylate/Aloe Vera Med 11/17/18 22:37 Pending 1 appful TRDERM QID PRN cefTRIAXone [Rocephin] 1 gm Med 11/18/18 09:00 Active Sodium Chloride 0.9% [Normal Saline] 100 ml IV Q24H Blood Culture x2 Reflex Set [OM.PC] Stat Oth 11/17/18 17:08 Ordered Resuscitation Status Routine Resus Stat 11/17/18 22:39 Ordered Medication Orders Acetaminophen (Tylenol) 650 mg PO TID PRN PRN Reason: Pain Albuterol/Ipratropium (Duoneb 3.0-0.5 Mg/3 Ml) 3 ml NEB Q4H PRN PRN Reason: Shortness Of Breath/wheezing Baclofen (Lioresal) 25 mg PO QID [facility] Bisacodyl (Dulcolax) 10 mg PO DAILY PRN PRN Reason: Constipation Bisacodyl (Dulcolax) 10 mg RECTAL DAILY PRN PRN Reason: Constipation Enoxaparin Sodium (Lovenox) 40 mg SUBCUT DAILY [facility] Hydromorphone HCl (Dilaudid) 1 mg PO Q6H PRN PRN Reason: Pain Ceftriaxone Sodium 1 gm/ (Sodium Chloride) 100 mls @ 200 mls/hr IV Q24H [facility] Sodium Chloride (Normal Saline) 1,000 mls @ 25 mls/hr IV ASDIRECTED [facility] Stop: 11/22/18 00:08 Levothyroxine Sodium (Levothyroxine) 150 mcg PO ACBREAKFAST [facility] Loperamide HCl (Imodium) 4 mg PO TID PRN PRN Reason: Diarrhea Lorazepam (Ativan) 0.5 mg PO BEDTIME [facility] Last Admin: 11/18/18 00:10 Dose: 0.5 mg Lorazepam (Ativan) 1 mg IV Q6H PRN PRN Reason: Anxiety Magnesium Citrate (Citrate Of Magnesia) 150 ml PO TID PRN PRN Reason: Constipation Mirtazapine (Remeron) 15 mg PO BEDTIME [facility] Multivitamins (Thera) 1 each PO DAILY [facility] Non-Formulary Medication (Alpha Lipoic Acid [Alpha Lipoic Acid]) 300 mg PO DAILY [facility] Non-Formulary Medication (Naproxen Sodium) 2 tab PO BEDTIME [facility] Non-Formulary Medication (Sumatriptan Succinate [Imitrex]) 100 mg PO BID PRN PRN Reason: Headache Non-Formulary Medication (Trolamine Salicylate/Aloe Vera) 1 appful TRDERM QID PRN PRN Reason: Pain Ondansetron HCl (Zofran Odt) 4 mg PO TID PRN PRN Reason: Nausea Ondansetron HCl (Zofran) 4 mg IV Q6H PRN PRN Reason: Nausea/Vomiting Polyethylene Glycol (Miralax) 17 gm PO TID PRN PRN Reason: Constipation Pregabalin (Lyrica) 150 mg PO TID [facility] Saccharomyces Boulardii (Florastor) 250 mg PO DAILY [facility] Assessment/Plan Comment:: Assessment/Plan: Acute: Encephalopathy - Likely 2/2 Toxic/Metabolic Encephalopathy - Polypharmacy: Anticholinergic, Benzos, Muscle Relaxant, Anti-neuropathic pain, and Insomnia Medication - Hs Catheter related UTI - Supportive care - Counseled patient on polypharmacy - Advised patient to discuss with PCP her current home regimen; recommend to trim it down Catheter Related UTI - She carries a hx/o Neurogenic Bladder - UA is pos for UTI - Per EMR; she she has hx/o MRSA, Beta Group B Strep, E. Coli, E. Faecalis, and K. Pneumoniae - She received a one time dose of Septra DS in ED - IV Rocephin 1 gram and Vancomycin for pharmacy to dose - Catheter: new was just changed on the 08 of November - Patient is afebrile w/o leukocytosis MRSA Screening Positive - Bactroban Topical TID - Apply to affected area for 5 days S/p Hypoxia with Cyanosis - She may have an underlying RAD - ABG pH of 7.14, pCo2 of 46.5, pO2 of 56, HCO3 of 28.5, O2 Sat of 89.4%, on 2L NC - Risk Factor: Smokes for 30 years but now only smokes 4 cigarettes a day - Contributory: Multiple medications that alters her mind (i.e. sedation and somnolence) - Chest CTA shows no PE and no acute obvious infiltrate - Clear on auscultation - Supplemental O2 - May need PFT outpatient Polypharmacy - Recommend to trim down her routine home medications - Consider alternative medications for her chronic pain syndrome Chronic: HTN Neurogenic Bladder w/ Suprapubic Catheter Migraines CKD Stage 3/Renal Insufficiency T6 Paralysis/Paraplegic Hypothyroidism Anxiety Depression Chronic Pain Syndrome Class I Obese Plan: Admit to [facility] Routine AM Labs Resume Home Meds IV Antibiotics w/ probiotic Isolation precaution IV hydration Fall Precaution; patient is paraplegic PT/OT if services available SW/CM for d/c planning Code status: 1
[2018-11-18] MEDS ORDERED: Vancomycin 500 MG SDV IV SCH (07:15)
[2018-11-18] MEDS ORDERED: Vancomycin 1 GM, Vancomycin 250 MG in Sodium Chloride 0.9% 250 ML IV SCH (08:00)
[2018-11-18] MEDS ORDERED: ALPHA LIPOIC ACID 300 MG PO SCH (09:00)
[2018-11-18] MEDS: Multivitamins,Therapeutic Tab PO SCH (09:28)
[2018-11-18] MEDS: Baclofen 10 MG Tab PO SCH ×4 (09:28→20:40)
[2018-11-18] MEDS: Pregabalin 75 MG Cap PO SCH ×3 (09:29→20:40)
[2018-11-18] MEDS: Mupirocin Oint 22 GM Tube TOP SCH ×3 (09:30→20:45)
[2018-11-18] MEDS: Enoxaparin 40 MG/0.4 ML Syringe SUBCUT SCH (09:30)
[2018-11-18] MEDS: Saccharomyces Boulardii (Probiotic) 250 MG Cap PO SCH (09:30)
[2018-11-18] MEDS: cefTRIAXone 1 GM in Sodium Chloride 0.9% 100 ML IV SCH (09:30)
[2018-11-18] MEDS: Levothyroxine 150 MCG Tab PO SCH (09:31)
[2018-11-18] MEDS: Potassium Chloride 20 MEQ Tab.ER PO SCH ×2 (10:16→16:56)
[2018-11-18] MEDS: Vancomycin 1 GM, Vancomycin 250 MG in Sodium Chloride 0.9% 250 ML IV SCH ×2 (10:17→20:47)
[2018-11-18] MEDS: Mirtazapine 15 MG Tab PO SCH (20:42)
[2018-11-19] MEDS: LORazepam 2 MG/ML SDV IV PRN (03:33)
[2018-11-19] MEDS: Levothyroxine 150 MCG Tab PO SCH (05:41)
--- NOTE | 2018-11-19 08:24 | CR ---
Chest: Portable view of the chest was obtained. Comparison: Prior chest x-ray of 10/16/[address] of 11/17/18. Heart size and mediastinum are within normal limits for portable technique. Lungs are clear with no acute parenchymal change. Bony structures are grossly intact. Impression: 1. Nothing acute is appreciated on portable chest x-ray. Diagnostic code #1
[2018-11-19] MEDS: Multivitamins,Therapeutic Tab PO SCH (09:13)
[2018-11-19] MEDS: Saccharomyces Boulardii (Probiotic) 250 MG Cap PO SCH (09:13)
[2018-11-19] MEDS: Baclofen 10 MG Tab PO SCH ×4 (09:14→21:45)
[2018-11-19] MEDS: Pregabalin 75 MG Cap PO SCH ×3 (09:14→21:45)
[2018-11-19] MEDS: Enoxaparin 40 MG/0.4 ML Syringe SUBCUT SCH (09:16)
[2018-11-19] MEDS: cefTRIAXone 1 GM in Sodium Chloride 0.9% 100 ML IV SCH (09:38)
[2018-11-19] MEDS: Potassium Chloride 20 MEQ Tab.ER PO SCH (09:43)
[2018-11-19] MEDS: Mupirocin Oint 22 GM Tube TOP SCH ×3 (10:00→21:47)
--- NOTE | 2018-11-19 14:36 | PCM.PN ---
- General Info Date of Service: 11/19/18 Functional Status: Reports: Pain Controlled, Urinating - Review of Systems General: Reports: No Symptoms HEENT: Reports: No Symptoms Pulmonary: Reports: No Symptoms Cardiovascular: Reports: No Symptoms Gastrointestinal: Reports: No Symptoms Genitourinary: Reports: No Symptoms Musculoskeletal: Reports: No Symptoms Skin: Reports: No Symptoms Neurological: Reports: No Symptoms Psychiatric: Reports: No Symptoms - Patient Data Vitals - Most Recent: Last Vital Signs Temp 36.7 C 11/19/18 07:54 Pulse 65 11/19/18 07:54 Resp 16 11/19/18 07:54 BP 114/67 11/19/18 07:54 Pulse Ox 93 L 11/19/18 13:44 Weight - Most Recent: 95.844 kg I&O - Last 24 Hours: Intake & Output 11/18/18 11/19/18 11/19/18 22:59 06:59 14:59 Intake Total 1490 1625 100 Output Total 1200 2050 Balance 290 -425 100 Lab Results Last 24 Hours: Laboratory Results - last 24 hr 11/19/18 11/19/18 Range/Units 05:37 05:37 WBC 4.68 (3.98-10.04) K/mm3 RBC 5.32 H (3.98-5.22) M/mm3 Hgb 15.2 (11.2-15.7) gm/L Hct 48.2 H (34.1-44.9) % MCV 90.6 (79.4-94.8) fl MCH 28.6 (25.6-32.2) pg MCHC 31.5 L (32.2-35.5) g/dl RDW Std Deviation 53.4 H (36.4-46.3) fL Plt Count 111 L (182-369) K/mm3 MPV 11.1 (9.4-12.3) fl Neut % (Auto) 48.0 (34.0-71.1) % Lymph % (Auto) 26.5 (19.3-51.7) % [place] % (Auto) 15.8 H (4.7-12.5) % Eos % (Auto) 6.2 H (0.7-5.8) Baso % (Auto) 0.9 (0.1-1.2) % Neut # (Auto) 2.25 (1.56-6.13) K/mm3 Lymph # (Auto) 1.24 (1.18-3.74) K/mm3 [place] # (Auto) 0.74 H (0.24-0.36) K/mm3 Eos # (Auto) 0.29 (0.04-0.36) K/mm3 Baso # (Auto) 0.04 (0.01-0.08) K/mm3 Manual Slide Review Abnormal smear Sodium 142 (136-145) mEq/L Potassium 4.5 (3.5-5.1) mEq/L Chloride 108 H (98-107) mEq/L Carbon Dioxide 24 (21-32) mEq/L Anion Gap 14.5 (5-15) BUN 14 (7-18) mg/dL Creatinine 0.8 (0.55-1.02) mg/dL Est Cr Clr Drug Dosing 83.04 mL/min Estimated GFR (MDRD) > 60 (>60) mL/min BUN/Creatinine Ratio 17.5 (14-18) Glucose 89 (74-106) mg/dL Calcium 8.5 (8.5-10.1) mg/dL Magnesium 2.0 (1.8-2.4) mg/dl C-Reactive Protein 13.5 H* (<1.0) mg/dL Bishnu Results Last 24 Hours: Microbiology 11/17/18 18:25 Urine Culture - Preliminary Urine, Catheterized Klebsiella Pneumoniae 11/17/18 17:08 Aerobic Blood Culture - Preliminary Blood - Venous - Lab Draw NO GROWTH AFTER 1 DAY Anaerobic Blood Culture - Preliminary NO GROWTH AFTER 1 DAY 11/17/18 17:44 Aerobic Blood Culture - Preliminary Blood - Venous NO GROWTH AFTER 1 DAY Anaerobic Blood Culture - Final Med Orders - Current: Current Medications Acetaminophen (Tylenol) 650 mg PO TID PRN PRN Reason: Pain Albuterol/Ipratropium (Duoneb 3.0-0.5 Mg/3 Ml) 3 ml NEB Q4H PRN PRN Reason: Shortness Of Breath/wheezing Baclofen (Lioresal) 25 mg PO QID [facility] Last Admin: 11/19/18 14:28 Dose: 25 mg Bisacodyl (Dulcolax) 10 mg PO DAILY PRN PRN Reason: Constipation Bisacodyl (Dulcolax) 10 mg RECTAL DAILY PRN PRN Reason: Constipation Last Admin: 11/18/18 16:42 Dose: 10 mg Enoxaparin Sodium (Lovenox) 40 mg SUBCUT DAILY [facility] Last Admin: 11/19/18 09:16 Dose: 40 mg Hydromorphone HCl (Dilaudid) 1 mg PO Q6H PRN PRN Reason: Pain Ceftriaxone Sodium 1 gm/ (Sodium Chloride) 100 mls @ 200 mls/hr IV Q24H [facility] Last Admin: 11/19/18 09:38 Dose: 200 mls/hr Levothyroxine Sodium (Levothyroxine) 150 mcg PO ACBREAKFAST [facility] Last Admin: 11/19/18 05:41 Dose: 150 mcg Loperamide HCl (Imodium) 4 mg PO TID PRN PRN Reason: Diarrhea Lorazepam (Ativan) 0.5 mg PO BEDTIME [facility] Last Admin: 11/18/18 20:41 Dose: 0.5 mg Lorazepam (Ativan) 1 mg IV Q6H PRN PRN Reason: Anxiety Last Admin: 11/19/18 03:33 Dose: 1 mg Magnesium Citrate (Citrate Of Magnesia) 150 ml PO TID PRN PRN Reason: Constipation Mirtazapine (Remeron) 15 mg PO BEDTIME [facility] Last Admin: 11/18/18 20:42 Dose: 15 mg Multivitamins (Thera) 1 each PO DAILY [facility] Last Admin: 11/19/18 09:13 Dose: 1 each Mupirocin (Bactroban Oint) 0 gm TOP TID [facility] Stop: 11/22/18 21:01 Last Admin: 11/19/18 14:29 Dose: 1 applic Naproxen (Naprosyn) 375 mg PO BEDTIME [facility] Last Admin: 11/18/18 20:41 Dose: 375 mg Ondansetron HCl (Zofran Odt) 4 mg PO TID PRN PRN Reason: Nausea Ondansetron HCl (Zofran) 4 mg IV Q6H PRN PRN Reason: Nausea/Vomiting Polyethylene Glycol (Miralax) 17 gm PO TID PRN PRN Reason: Constipation Last Admin: 11/18/18 14:43 Dose: 17 gm Pregabalin (Lyrica) 150 mg PO TID [facility] Last Admin: 11/19/18 14:28 Dose: 150 mg Saccharomyces Boulardii (Florastor) 250 mg PO DAILY [facility] Last Admin: 11/19/18 09:13 Dose: 250 mg Sumatriptan Succinate (Imitrex) 100 mg PO BID PRN PRN Reason: Headache Discontinued Medications Diltiazem HCl (Cardizem) 5 mg IVPUSH ONETIME STA Stop: 11/17/18 19:07 Last Admin: 11/18/18 10:33 Dose: Not Given Lactated Ringer's (Ringers, Lactated) 1,000 mls @ 150 mls/hr IV ASDIRECTED [facility] Last Admin: 11/17/18 17:56 Dose: 150 mls/hr Sodium Chloride (Normal Saline) 100 mls @ 75 mls/hr IV ASDIRECTED [facility] Last Admin: 11/17/18 19:20 Dose: 75 mls/hr Diltiazem HCl 125 mg/ Sodium (Chloride) 125 mls @ 10 mls/hr IV TITRATE [facility]; Protocol Sodium Chloride (Normal Saline) Confirm Administered Dose 1,000 mls @ as directed .ROUTE .[facility] Stop: 11/18/18 00:02 Last Admin: 11/18/18 00:12 Dose: 25 mls/hr Sodium Chloride (Normal Saline) 1,000 mls @ 25 mls/hr IV ASDIRECTED [facility] Stop: 11/22/18 00:08 Vancomycin HCl 1 gm/Vancomycin HCl 250 mg/ Sodium Chloride 250 mls @ 166.667 mls/hr IV Q12H [facility] Last Admin: 11/18/18 10:34 Dose: Not Given Vancomycin HCl 1 gm/Vancomycin HCl 250 mg/ Sodium Chloride 250 mls @ 166.667 mls/hr IV Q12H [facility] Last Admin: 11/18/18 20:47 Dose: 166.667 mls/hr Iopamidol (Isovue-370 (76%)) 100 ml IV ONETIME ONE Stop: 11/17/18 18:49 Last Admin: 11/17/18 19:17 Dose: 100 ml Non-Formulary Medication (Alpha Lipoic Acid [Alpha Lipoic Acid]) 300 mg PO DAILY [facility] Last Admin: 11/18/18 10:34 Dose: Not Given Non-Formulary Medication (Trolamine Salicylate/Aloe Vera) 1 appful TRDERM QID PRN PRN Reason: Pain Potassium Chloride (Klor-Con M20) 40 meq PO ,17 [facility] Stop: 11/19/18 08:01 Last Admin: 11/19/18 09:43 Dose: Not Given Trimethoprim/Sulfamethoxazole (Septra Ds) 1 tab PO ONETIME ONE Stop: 11/17/18 19:36 Last Admin: 11/17/18 19:48 Dose: 1 tab Vancomycin HCl (Vancomycin) 1,444.47 mg 15 mg/kg (1444.47 mg) IV Q12H [facility] Last Admin: 11/18/18 10:34 Dose: Not Given Vancomycin HCl (Pharmacy To Dose - Vancomycin) 0 dose .XX ASDIRECTED PRN PRN Reason: RX TO DOSE VANCO - Exam Quality Assessment: Urine Catheter (suprapubic), DVT Prophylaxis General: Alert, Cooperative, No Acute Distress HEENT: Pupils Equal, Pupils Reactive, EOMI Neck: Trachea Midline, No JVD Lungs: Normal Respiratory Effort Cardiovascular: Regular Rate, Regular Rhythm GI/Abdominal Exam: Normal Bowel Sounds, Soft, Non-Tender, No Organomegaly, No Distention (Female) Exam: Deferred Back Exam: Normal Inspection Extremities: Normal Inspection, Non-Tender, Normal Capillary Refill Skin: Warm Neurological: No New Focal Deficit Psy/Mental Status: Alert - Problem List Review Problem List Initiated/Reviewed/Updated: Yes - Plan Plan:: Assessment/Plan: Acute: Encephalopathy - Likely 2/2 Toxic/Metabolic Encephalopathy - Polypharmacy: Anticholinergic, Benzos, Muscle Relaxant, Anti-neuropathic pain, and Insomnia Medication - Hs Catheter related UTI - Supportive care - Counseled patient on polypharmacy - Advised patient to discuss with PCP her current home regimen; recommend to trim it down Catheter Related UTI - She carries a hx/o Neurogenic Bladder - UA is pos for UTI - Per EMR; she she has hx/o MRSA, Beta Group B Strep, E. Coli, E. Faecalis, and K. Pneumoniae - She received a one time dose of Septra DS in ED - Adjut as needed, IV Rocephin 1 gram and Vancomycin for pharmacy to dose - Catheter: new was just changed on the 08 of November - Patient is afebrile w/o leukocytosis MRSA Screening Positive - Bactroban Topical TID - Apply to affected area for 5 days S/p Hypoxia with Cyanosis - She may have an underlying RAD - ABG pH of 7.14, pCo2 of 46.5, pO2 of 56, HCO3 of 28.5, O2 Sat of 89.4%, on 2L NC - Risk Factor: Smokes for 30 years but now only smokes 4 cigarettes a day - Contributory: Multiple medications that alters her mind (i.e. sedation and somnolence) - Clear on auscultation - Supplemental O2 - May need PFT outpatient Polypharmacy - Recommend to trim down her routine home medications - Consider alternative medications for her chronic pain syndrome Chronic: HTN Neurogenic Bladder w/ Suprapubic Catheter Migraines CKD Stage 3/Renal Insufficiency T6 Paralysis/Paraplegic Hypothyroidism Anxiety Depression Chronic Pain Syndrome Class I Obese Plan: Admit to [facility] Routine AM Labs Resume Home Meds IV Antibiotics w/ probiotic Isolation precaution IV hydration Fall Precaution; patient is paraplegic PT/OT if services available SW/CM for d/c planning Code status: 1
[2018-11-19] MEDS: LORazepam 0.5 MG Tab PO SCH (21:45)
[2018-11-19] MEDS: Mirtazapine 15 MG Tab PO SCH (21:46)
[2018-11-19] MEDS: Acetaminophen 325 MG Tab PO PRN (23:16)
[2018-11-20] MEDS: LORazepam 2 MG/ML SDV IV PRN (01:25)
[2018-11-20] MEDS: Levothyroxine 150 MCG Tab PO SCH (05:59)
[2018-11-20] MEDS: Multivitamins,Therapeutic Tab PO SCH (08:29)
[2018-11-20] MEDS: Baclofen 10 MG Tab PO SCH ×4 (08:29→22:13)
[2018-11-20] MEDS: Pregabalin 75 MG Cap PO SCH ×3 (08:30→22:12)
[2018-11-20] MEDS: Saccharomyces Boulardii (Probiotic) 250 MG Cap PO SCH (08:30)
[2018-11-20] MEDS: Enoxaparin 40 MG/0.4 ML Syringe SUBCUT SCH (08:32)
[2018-11-20] MEDS: Mupirocin Oint 22 GM Tube TOP SCH ×3 (08:33→22:14)
[2018-11-20] MEDS ORDERED: cefTRIAXone 2 GM in Sodium Chloride 0.9% 100 ML IV SCH (09:00)
[2018-11-20] MEDS ORDERED: cefTRIAXone 2 GM Vial IVPUSH SCH (09:00)
--- NOTE | 2018-11-20 17:59 | PCM.PN ---
- General Info Date of Service: 11/20/18 Admission Dx/Problem (Free Text): Admission Diagnosis/Problem Admission Diagnosis/Problem Hypoxemia Subjective Update: Patient is doing well. Her white count is normal, her C-reactive protein has decreased from 19.2-8.1, and electrolytes are stable. She has been afebrile. Urine is growing out Klebsiella pneumoniae with multiple sensitivities. We have not been able to change out her suprapubic catheter. Functional Status: Reports: Pain Controlled - Review of Systems General: Reports: No Symptoms. Denies: Fever HEENT: Reports: No Symptoms Cardiovascular: Reports: No Symptoms Gastrointestinal: Reports: No Symptoms. Denies: Abdominal Pain, Constipation - Patient Data Vitals - Most Recent: Last Vital Signs Temp 98.8 F 11/20/18 14:58 Pulse 65 11/20/18 14:58 Resp 16 11/20/18 14:58 BP 117/65 11/20/18 14:58 Pulse Ox 93 L 11/20/18 14:58 Weight - Most Recent: 211 lb 12.8 oz I&O - Last 24 Hours: Intake & Output 11/20/18 11/20/18 11/20/18 06:59 14:59 22:59 Intake Total 1000 270 Output Total 1300 Balance -300 270 Lab Results Last 24 Hours: Laboratory Results - last 24 hr 11/20/18 11/20/18 Range/Units 05:47 05:47 WBC 5.60 (3.98-10.04) K/mm3 RBC 5.12 (3.98-5.22) M/mm3 Hgb 14.3 (11.2-15.7) gm/L Hct 47.2 H (34.1-44.9) % MCV 92.2 (79.4-94.8) fl MCH 27.9 (25.6-32.2) pg MCHC 30.3 L (32.2-35.5) g/dl RDW Std Deviation 52.7 H (36.4-46.3) fL Plt Count 165 L (182-369) K/mm3 MPV 11.4 (9.4-12.3) fl Neut % (Auto) 53.3 (34.0-71.1) % Lymph % (Auto) 31.8 (19.3-51.7) % [place] % (Auto) 13.2 H (4.7-12.5) % Eos % (Auto) 0 L (0.7-5.8) Baso % (Auto) 0.4 (0.1-1.2) % Neut # (Auto) 2.99 (1.56-6.13) K/mm3 Lymph # (Auto) 1.78 (1.18-3.74) K/mm3 [place] # (Auto) 0.74 H (0.24-0.36) K/mm3 Eos # (Auto) 0.00 L (0.04-0.36) K/mm3 Baso # (Auto) 0.02 (0.01-0.08) K/mm3 Manual Slide Review Normal smear Sodium 144 (136-145) mEq/L Potassium 3.9 (3.5-5.1) mEq/L Chloride 106 (98-107) mEq/L Carbon Dioxide 31 (21-32) mEq/L Anion Gap 10.9 (5-15) BUN 12 (7-18) mg/dL Creatinine 1.0 (0.55-1.02) mg/dL Est Cr Clr Drug Dosing 66.43 mL/min Estimated GFR (MDRD) 58 (>60) mL/min BUN/Creatinine Ratio 12.0 L (14-18) Glucose 114 H (74-106) mg/dL Calcium 8.8 (8.5-10.1) mg/dL Magnesium 1.9 (1.8-2.4) mg/dl C-Reactive Protein 8.1 H* (<1.0) mg/dL [facility] Results Last 24 Hours: Microbiology 11/17/18 17:44 Aerobic Blood Culture - Preliminary Blood - Venous NO GROWTH AFTER 3 DAYS Anaerobic Blood Culture - Final 11/17/18 18:25 Urine Culture - Final Urine, Catheterized Klebsiella Pneumoniae 11/17/18 17:08 Aerobic Blood Culture - Preliminary Blood - Venous - Lab Draw NO GROWTH AFTER 2 DAYS Anaerobic Blood Culture - Preliminary NO GROWTH AFTER 2 DAYS Med Orders - Current: Current Medications Acetaminophen (Tylenol) 650 mg PO TID PRN PRN Reason: Pain Last Admin: 11/19/18 23:16 Dose: 650 mg Albuterol/Ipratropium (Duoneb 3.0-0.5 Mg/3 Ml) 3 ml NEB Q4H PRN PRN Reason: Shortness Of Breath/wheezing Baclofen (Lioresal) 25 mg PO QID [facility] Last Admin: 11/20/18 16:22 Dose: 25 mg Bisacodyl (Dulcolax) 10 mg PO DAILY PRN PRN Reason: Constipation Bisacodyl (Dulcolax) 10 mg RECTAL DAILY PRN PRN Reason: Constipation Last Admin: 11/18/18 16:42 Dose: 10 mg Enoxaparin Sodium (Lovenox) 40 mg SUBCUT DAILY [facility] Last Admin: 11/20/18 08:32 Dose: 40 mg Hydromorphone HCl (Dilaudid) 1 mg PO Q6H PRN PRN Reason: Pain Ceftriaxone Sodium 2 gm/ (Sodium Chloride) 100 mls @ 200 mls/hr IV Q24H [facility] Last Admin: 11/20/18 08:24 Dose: 200 mls/hr Levothyroxine Sodium (Levothyroxine) 150 mcg PO ACBREAKFAST [facility] Last Admin: 11/20/18 05:59 Dose: 150 mcg Loperamide HCl (Imodium) 4 mg PO TID PRN PRN Reason: Diarrhea Lorazepam (Ativan) 0.5 mg PO BEDTIME [facility] Last Admin: 11/19/18 21:45 Dose: 0.5 mg Lorazepam (Ativan) 1 mg IV Q6H PRN PRN Reason: Anxiety Last Admin: 11/20/18 01:25 Dose: 1 mg Magnesium Citrate (Citrate Of Magnesia) 150 ml PO TID PRN PRN Reason: Constipation Mirtazapine (Remeron) 15 mg PO BEDTIME [facility] Last Admin: 11/19/18 21:46 Dose: 15 mg Multivitamins (Thera) 1 each PO DAILY [facility] Last Admin: 11/20/18 08:29 Dose: 1 each Mupirocin (Bactroban Oint) 0 gm TOP TID [facility] Stop: 11/22/18 21:01 Last Admin: 11/20/18 14:54 Dose: 1 applic Naproxen (Naprosyn) 375 mg PO BEDTIME [facility] Last Admin: 11/19/18 21:46 Dose: 375 mg Ondansetron HCl (Zofran Odt) 4 mg PO TID PRN PRN Reason: Nausea Ondansetron HCl (Zofran) 4 mg IV Q6H PRN PRN Reason: Nausea/Vomiting Polyethylene Glycol (Miralax) 17 gm PO TID PRN PRN Reason: Constipation Last Admin: 11/18/18 14:43 Dose: 17 gm Pregabalin (Lyrica) 150 mg PO TID [facility] Last Admin: 11/20/18 14:53 Dose: 150 mg Saccharomyces Boulardii (Florastor) 250 mg PO DAILY [facility] Last Admin: 11/20/18 08:30 Dose: 250 mg Sumatriptan Succinate (Imitrex) 100 mg PO BID PRN PRN Reason: Headache Discontinued Medications Ceftriaxone Sodium (Rocephin) 2 gm IVPUSH Q24H [facility] Diltiazem HCl (Cardizem) 5 mg IVPUSH ONETIME STA Stop: 11/17/18 19:07 Last Admin: 11/18/18 10:33 Dose: Not Given Lactated Ringer's (Ringers, Lactated) 1,000 mls @ 150 mls/hr IV ASDIRECTED [facility] Last Admin: 11/17/18 17:56 Dose: 150 mls/hr Sodium Chloride (Normal Saline) 100 mls @ 75 mls/hr IV ASDIRECTED [facility] Last Admin: 11/17/18 19:20 Dose: 75 mls/hr Diltiazem HCl 125 mg/ Sodium (Chloride) 125 mls @ 10 mls/hr IV TITRATE [facility]; Protocol Ceftriaxone Sodium 1 gm/ (Sodium Chloride) 100 mls @ 200 mls/hr IV Q24H [facility] Last Admin: 11/19/18 09:38 Dose: 200 mls/hr Sodium Chloride (Normal Saline) Confirm Administered Dose 1,000 mls @ as directed .ROUTE .[facility] Stop: 11/18/18 00:02 Last Admin: 11/18/18 00:12 Dose: 25 mls/hr Sodium Chloride (Normal Saline) 1,000 mls @ 25 mls/hr IV ASDIRECTED [facility] Stop: 11/22/18 00:08 Vancomycin HCl 1 gm/Vancomycin HCl 250 mg/ Sodium Chloride 250 mls @ 166.667 mls/hr IV Q12H [facility] Last Admin: 11/18/18 10:34 Dose: Not Given Vancomycin HCl 1 gm/Vancomycin HCl 250 mg/ Sodium Chloride 250 mls @ 166.667 mls/hr IV Q12H [facility] Last Admin: 11/18/18 20:47 Dose: 166.667 mls/hr Iopamidol (Isovue-370 (76%)) 100 ml IV ONETIME ONE Stop: 11/17/18 18:49 Last Admin: 11/17/18 19:17 Dose: 100 ml Non-Formulary Medication (Alpha Lipoic Acid [Alpha Lipoic Acid]) 300 mg PO DAILY [facility] Last Admin: 11/18/18 10:34 Dose: Not Given Non-Formulary Medication (Trolamine Salicylate/Aloe Vera) 1 appful TRDERM QID PRN PRN Reason: Pain Potassium Chloride (Klor-Con M20) 40 meq PO [facility] Stop: 11/19/18 08:01 Last Admin: 11/19/18 09:43 Dose: Not Given Trimethoprim/Sulfamethoxazole (Septra Ds) 1 tab PO ONETIME ONE Stop: 11/17/18 19:36 Last Admin: 11/17/18 19:48 Dose: 1 tab Vancomycin HCl (Vancomycin) 1,444.47 mg 15 mg/kg (1444.47 mg) IV Q12H [facility] Last Admin: 11/18/18 10:34 Dose: Not Given Vancomycin HCl (Pharmacy To Dose - Vancomycin) 0 dose .XX ASDIRECTED PRN PRN Reason: RX TO DOSE VANCO - Exam Quality Assessment: Supplemental Oxygen General: Alert, Oriented HEENT: Pupils Equal Neck: Supple Lungs: Clear to Auscultation, Normal Respiratory Effort Cardiovascular: Regular Rate, Regular Rhythm GI/Abdominal Exam: Normal Bowel Sounds, Soft, No Distention Extremities: Normal Inspection, No Pedal Edema Psy/Mental Status: Alert, Normal Affect - Problem List Review Problem List Initiated/Reviewed/Updated: Yes - My Orders Last 24 Hours: My Active Orders 11/20/18 10:38 Consult to Physical Therapy [PT Evaluation and Treatment] [CONS] Routine OT Evaluation and Treatment [CONS] Routine - Plan Plan:: Assessment/Plan: Acute: Encephalopathy - Likely 2/2 Toxic/Metabolic Encephalopathy - Polypharmacy: Anticholinergic, Benzos, Muscle Relaxant, Anti-neuropathic pain, and Insomnia Medication - Hs Catheter related UTI - Supportive care - Counseled patient on polypharmacy - Advised patient to discuss with PCP her current home regimen; recommend to trim it down Catheter Related UTI - She carries a hx/o Neurogenic Bladder - UA is pos for UTI - Per EMR; she she has hx/o MRSA, Beta Group B Strep, E. Coli, E. Faecalis, and K. Pneumoniae - Urine culture grew out Klebsiella pneumoniae with multiple sensitivities. - She received a one time dose of Septra DS in ED - Adjut as needed, IV Rocephin 1 gram and Vancomycin for pharmacy to dose - Catheter: new was just changed on the 08 of November. We will replace the suprapubic catheter and switched to by mouth antibiotics. - Patient is afebrile w/o leukocytosis MRSA Screening Positive - Bactroban Topical TID - Apply to affected area for 5 days S/p Hypoxia with Cyanosis - She may have an underlying RAD - ABG pH of 7.14, pCo2 of 46.5, pO2 of 56, HCO3 of 28.5, O2 Sat of 89.4%, on 2L NC - Risk Factor: Smokes for 30 years but now only smokes 4 cigarettes a day - Contributory: Multiple medications that alters her mind (i.e. sedation and somnolence) - Clear on auscultation - Supplemental O2 - May need PFT outpatient Polypharmacy - Recommend to trim down her routine home medications - Consider alternative medications for her chronic pain syndrome Chronic: HTN Neurogenic Bladder w/ Suprapubic Catheter Migraines CKD Stage 3/Renal Insufficiency T6 Paralysis/Paraplegic Hypothyroidism Anxiety Depression Chronic Pain Syndrome Class I Obese Plan: Admit to [facility] Switch to PO Bactrim Routine AM Labs Resume Home Meds Isolation precaution IV hydration Fall Precaution; patient is paraplegic PT/OT if services available SW/CM for d/c planning Code status: 1
[2018-11-20] MEDS: Mirtazapine 15 MG Tab PO SCH (22:11)
[2018-11-20] MEDS: Acetaminophen 325 MG Tab PO PRN (22:12)
[2018-11-20] MEDS: LORazepam 0.5 MG Tab PO SCH (22:14)
[2018-11-21] MEDS: LORazepam 2 MG/ML SDV IV PRN (00:30)
[2018-11-21] MEDS: Levothyroxine 150 MCG Tab PO SCH (06:09)
[2018-11-21] MEDS: Pregabalin 75 MG Cap PO SCH (08:57)
[2018-11-21] MEDS: Saccharomyces Boulardii (Probiotic) 250 MG Cap PO SCH (08:58)
[2018-11-21] MEDS: Multivitamins,Therapeutic Tab PO SCH (08:59)
[2018-11-21] MEDS ORDERED: Sulfamethoxazole/Trimethoprim 800-160 MG Tab PO SCH (09:00)
[2018-11-21] MEDS: Baclofen 10 MG Tab PO SCH ×2 (09:00→12:36)
[2018-11-21] MEDS: Enoxaparin 40 MG/0.4 ML Syringe SUBCUT SCH (09:01)
[2018-11-21] MEDS: Mupirocin Oint 22 GM Tube TOP SCH (09:03)
--- NOTE | 2018-11-21 09:08 | PCM.DCSUM1 ---
Discharge Summary - Hospital Course HPI Initial Comments: This is a 53 yo whit female with past medical hx/o HTN, Neurogenic Bladder w/ Suprapubic Catheter, Migraines, CKD Stage 3/Renal Insufficiency, T6 Paralysis/ Paraplegia, Hypothyroidism, Anxiety, Depression, Chronic Pain Syndrome, and Class I Obese who was brought in mainly for acute hypoxia and evaluation of transient cyanosis. She carries no hx/o pulmonary disease but 30 year of smoking cigarettes. She states she now smokes 4 cigarettes a day. She denies being short of breath or dyspneic. She also carries no hx/o cardiac disease. She however states that she has been feeling weak, with decreased appetite and has been forgetting little things. She also report having headaches form time to time. A review of her medical records show, she had a hx/o hypoxemic respiratory failure in the past but she is not O2 dependent and not on any bronchodilators. Per secondary sources found with an O2 sat of 82% on RA and her oxygenation improved to 97% on 2L NC. On presentation to ED, she was observed to be 83% on RA. Her initial work up in ED shows a CBC remarkable for RB of 6.45, Hgb of 18.6, 57.5, RDW of 54.2, Platelet of 110, Neutrophils of 71%, and Monocytes of 1L%. her D-Dimer is 1.39. Her ABG shows a pH of 7.14, pCO2 of 46.5, pO2 of 56, HCO3 of 28.5, and O2 sat of 89.4% on 2L NC. Her Chemistry is significant for AG of 16.7, BUN of 26, Cr of 1.1, BS of 107, Al k Phos of 148, Total protein of 8.5, and Albumin of 3.2. Her UA is highly suggestive of UTI. Patient is being admitted for acute hypoxia s/p cyanosis, acute encephalopathy, polypharmacy and catheter related uti. she is full code. Brief History: Patient's urine culture grew Klebsiella pneumonia sensitive to Bactrim. Patient was switched on day 3 to oral antibiotics. She is afebrile and both her white count and she wrecked protein have progressively decreased. We did replace her pubic catheter yesterday. Glucometer patient occurred during hospitalization. Patient was weaned off oxygen. MRSA screen was positive and we started Bactroban ointment in her anterior nares. Diagnosis: Stroke: No - Discharge Data Discharge Date: 11/21/18 Discharge Disposition: DC/Tfer to [facility] Condition: Good - Patient Summary/Data Consults: Consultations 11/17/18 22:39 Consult to Case Management/Ict Analyst [CONS] Routine Consult to Spiritual Care [CONS] Routine Respiratory Care Assess and Treatment [CONS] Routine 11/20/18 10:38 Consult to Physical Therapy [PT Evaluation and Treatment] [CONS] Routine OT Evaluation and Treatment [CONS] Routine - Patient Instructions Diet: Usual Diet as Tolerated Activity: As Tolerated Driving: Do Not Drive Showering/Bathing: May Shower Notify Provider of: Fever - Discharge Plan *PRESCRIPTION DRUG MONITORING PROGRAM REVIEWED*: Not Applicable *COPY OF PRESCRIPTION DRUG MONITORING REPORT IN PATIENT DANNY: Not Applicable Prescriptions/Med Rec: Mupirocin Oint [Bactroban Oint] 0 gm TOP TID #1 tube Sulfamethoxazole/Trimethoprim [Septra DS] 1 tab PO BID #20 tablet Home Medications: Home Meds Acetaminophen [Tylenol] 650 mg PO TID PRN 11/17/18 [History] Alpha Lipoic Acid 300 mg PO DAILY 11/17/18 [History] Baclofen 25 mg PO QID 11/17/18 [History] Bisacodyl 10 mg RC DAILY PRN 11/17/18 [History] Bisacodyl [Dulcolax] 10 mg PO DAILY PRN 11/17/18 [History] HYDROmorphone [Dilaudid] 1 mg PO Q6H PRN 11/17/18 [History] LORazepam [Ativan] 0.5 mg PO BEDTIME 11/17/18 [History] Levothyroxine 150 mcg PO ACBREAKFAST 11/17/18 [History] Loperamide HCl [Imodium A-D] 2 tab PO TID PRN 11/17/18 [History] Magnesium Citrate 150 ml PO TID PRN 11/17/18 [History] Mirtazapine 15 mg PO BEDTIME 11/17/18 [History] Multivitamin [Daily Multiple Vitamin] 1 tab PO DAILY 11/17/18 [History] Naproxen Sodium [Aleve] 2 tab PO BEDTIME 11/17/18 [History] Ondansetron [Zofran ODT] 1 tab PO TID PRN 11/17/18 [History] Polyethylene Glycol 3350 [MiraLAX] 17 g PO TID PRN 11/17/18 [History] Pregabalin [Lyrica] 150 mg PO TID 11/17/18 [History] SUMAtriptan Succinate [Imitrex] 100 mg PO BID PRN 11/17/18 [History] Trolamine Salicylate/Aloe Vera [Aspercreme 10% Cream] 1 appful TRDERM QID PRN [History] Mupirocin Oint [Bactroban Oint] 0 gm TOP TID #1 tube 11/21/18 [Rx] Sulfamethoxazole/Trimethoprim [Septra DS] 1 tab PO BID #20 tablet 11/21/18 [Rx] Oxygen Therapy Mode: Room Air Referrals: Eligio Hernandez MD [Ordering Only Provider] - Jd Cao MD [Primary Care Provider] - - Discharge Summary/Plan Comment DC Time >30 min.: Yes Discharge Summary/Plan Comment: Encephalopathy - resolved - Likely 2/2 Toxic/Metabolic Encephalopathy - Polypharmacy: Anticholinergic, Benzos, Muscle Relaxant, Anti-neuropathic pain, and Insomnia Medication - Hs Catheter related UTI - Supportive care - Counseled patient on polypharmacy Catheter Related UTI - She carries a hx/o Neurogenic Bladder - UA is pos for UTI - Urine culture grew out Klebsiella pneumoniae with multiple sensitivities. - Switched to Bactrim DS 1 tab twice a day secondary to culture sensitivities. - Catheter: Replaced November 20, 2018 - Patient is afebrile w/o leukocytosis MRSA Screening Positive - Bactroban Topical TID - Apply to affected area for 5 days S/p Hypoxia with Cyanosis resolved - She may have an underlying RAD - ABG pH of 7.14, pCo2 of 46.5, pO2 of 56, HCO3 of 28.5, O2 Sat of 89.4%, on 2L NC - Risk Factor: Smokes for 30 years but now only smokes 4 cigarettes a day - Clear on auscultation Chronic: HTN Neurogenic Bladder w/ Suprapubic Catheter Migraines CKD Stage 3/Renal Insufficiency T6 Paralysis/Paraplegic Hypothyroidism Anxiety Depression Chronic Pain Syndrome Class I Obese Plan: DC back to her care center. Continue Bactrim DS 1 tab twice a day for 10 more days. Code status: 1 - General Info Date of Service: 11/21/18 Admission Dx/Problem (Free Text: Admission Diagnosis/Problem Admission Diagnosis/Problem Hypoxemia Subjective Update: November 21, 2018 Patient continued to do well. She is afebrile overnight with a normal white count and her C-reactive protein continues to decrease. Patient is on oral antibiotics for her Klebsiella pneumonia urine culture. She started Bactrim this morning. November 20, 2018 Patient is doing well. Her white count is normal, her C-reactive protein has decreased from 19.2-8.1, and electrolytes are stable. She has been afebrile. Urine is growing out Klebsiella pneumoniae with multiple sensitivities. We have not been able to change out her suprapubic catheter. Functional Status: Reports: Pain Controlled - Review of Systems General: Reports: No Symptoms. Denies: Fever Pulmonary: Reports: No Symptoms. Denies: Shortness of Breath, Pleuritic Chest Pain Cardiovascular: Reports: No Symptoms. Denies: Chest Pain, Palpitations Gastrointestinal: Reports: No Symptoms. Denies: Abdominal Pain - Patient Data Vitals - Most Recent: Last Vital Signs Temp 98.2 F 11/21/18 03:50 Pulse 59 L 11/21/18 03:50 Resp 14 11/21/18 03:50 BP 133/68 11/21/18 03:50 Pulse Ox 93 L 11/21/18 07:57 Weight - Most Recent: 210 lb 1.6 oz I&O - Last 24 hours: Intake & Output 11/20/18 11/21/18 11/21/18 22:59 06:59 14:59 Intake Total 920 1100 Output Total 1100 1700 Balance -180 -600 Lab Results - Last 24 hrs: Laboratory Results - last 24 hr 11/21/18 11/21/18 Range/Units 06:54 07:49 WBC 5.79 (3.98-10.04) K/mm3 RBC 5.49 H (3.98-5.22) M/mm3 Hgb 15.6 (11.2-15.7) gm/L Hct 49.5 H (34.1-44.9) % MCV 90.2 (79.4-94.8) fl MCH 28.4 (25.6-32.2) pg MCHC 31.5 L (32.2-35.5) g/dl RDW Std Deviation 50.4 H (36.4-46.3) fL Plt Count 186 (182-369) K/mm3 MPV 11.3 (9.4-12.3) fl Neut % (Auto) 60.8 (34.0-71.1) % Lymph % (Auto) 28.5 (19.3-51.7) % [place] % (Auto) 9.8 (4.7-12.5) % Eos % (Auto) 0 L (0.7-5.8) Baso % (Auto) 0.2 (0.1-1.2) % Neut # (Auto) 3.52 (1.56-6.13) K/mm3 Lymph # (Auto) 1.65 (1.18-3.74) K/mm3 [place] # (Auto) 0.57 H (0.24-0.36) K/mm3 Eos # (Auto) 0.00 L (0.04-0.36) K/mm3 Baso # (Auto) 0.01 (0.01-0.08) K/mm3 Manual Slide Review Abnormal smear Sodium 144 (136-145) mEq/L Potassium 4.0 (3.5-5.1) mEq/L Chloride 105 (98-107) mEq/L Carbon Dioxide 34 H (21-32) mEq/L Anion Gap 9.0 (5-15) BUN 17 (7-18) mg/dL Creatinine 1.1 H (0.55-1.02) mg/dL Est Cr Clr Drug Dosing 60.39 mL/min Estimated GFR (MDRD) 52 (>60) mL/min BUN/Creatinine Ratio 15.5 (14-18) Glucose 111 H (74-106) mg/dL Calcium 9.6 (8.5-10.1) mg/dL Magnesium 2.1 (1.8-2.4) mg/dl C-Reactive Protein 5.2 H* (<1.0) mg/dL JENNIFER Results - Last 24 hrs: Microbiology 11/17/18 17:08 Aerobic Blood Culture - Preliminary Blood - Venous - Lab Draw NO GROWTH AFTER 3 DAYS Anaerobic Blood Culture - Preliminary NO GROWTH AFTER 3 DAYS 11/17/18 17:44 Aerobic Blood Culture - Preliminary Blood - Venous NO GROWTH AFTER 3 DAYS Anaerobic Blood Culture - Final 11/17/18 18:25 Urine Culture - Final Urine, Catheterized Klebsiella Pneumoniae Med Orders - Current: Current Medications Acetaminophen (Tylenol) 650 mg PO TID PRN PRN Reason: Pain Last Admin: 11/20/18 22:12 Dose: 650 mg Albuterol/Ipratropium (Duoneb 3.0-0.5 Mg/3 Ml) 3 ml NEB Q4H PRN PRN Reason: Shortness Of Breath/wheezing Baclofen (Lioresal) 25 mg PO QID [facility] Last Admin: 11/21/18 09:00 Dose: 25 mg Bisacodyl (Dulcolax) 10 mg PO DAILY PRN PRN Reason: Constipation Last Admin: 11/21/18 09:00 Dose: 10 mg Bisacodyl (Dulcolax) 10 mg RECTAL DAILY PRN PRN Reason: Constipation Last Admin: 11/18/18 16:42 Dose: 10 mg Enoxaparin Sodium (Lovenox) 40 mg SUBCUT DAILY [facility] Last Admin: 11/21/18 09:01 Dose: 40 mg Hydromorphone HCl (Dilaudid) 1 mg PO Q6H PRN PRN Reason: Pain Levothyroxine Sodium (Levothyroxine) 150 mcg PO ACBREAKFAST [facility] Last Admin: 11/21/18 06:09 Dose: 150 mcg Loperamide HCl (Imodium) 4 mg PO TID PRN PRN Reason: Diarrhea Lorazepam (Ativan) 0.5 mg PO BEDTIME [facility] Last Admin: 11/20/18 22:14 Dose: 0.5 mg Lorazepam (Ativan) 1 mg IV Q6H PRN PRN Reason: Anxiety Last Admin: 11/21/18 00:30 Dose: 1 mg Magnesium Citrate (Citrate Of Magnesia) 150 ml PO TID PRN PRN Reason: Constipation Mirtazapine (Remeron) 15 mg PO BEDTIME [facility] Last Admin: 11/20/18 22:11 Dose: 15 mg Multivitamins (Thera) 1 each PO DAILY [facility] Last Admin: 11/21/18 08:59 Dose: 1 each Mupirocin (Bactroban Oint) 0 gm TOP TID [facility] Stop: 11/22/18 21:01 Last Admin: 11/21/18 09:03 Dose: 1 applic Naproxen (Naprosyn) 375 mg PO BEDTIME [facility] Last Admin: 11/20/18 22:13 Dose: 375 mg Ondansetron HCl (Zofran Odt) 4 mg PO TID PRN PRN Reason: Nausea Ondansetron HCl (Zofran) 4 mg IV Q6H PRN PRN Reason: Nausea/Vomiting Polyethylene Glycol (Miralax) 17 gm PO TID PRN PRN Reason: Constipation Last Admin: 11/18/18 14:43 Dose: 17 gm Pregabalin (Lyrica) 150 mg PO TID [facility] Last Admin: 11/21/18 08:57 Dose: 150 mg Saccharomyces Boulardii (Florastor) 250 mg PO DAILY [facility] Last Admin: 11/21/18 08:58 Dose: 250 mg Sumatriptan Succinate (Imitrex) 100 mg PO BID PRN PRN Reason: Headache Trimethoprim/Sulfamethoxazole (Septra Ds) 1 tab PO BID [facility] Last Admin: 11/21/18 08:59 Dose: 1 tab Discontinued Medications Ceftriaxone Sodium (Rocephin) 2 gm IVPUSH Q24H [facility] Diltiazem HCl (Cardizem) 5 mg IVPUSH ONETIME STA Stop: 11/17/18 19:07 Last Admin: 11/18/18 10:33 Dose: Not Given Lactated Ringer's (Ringers, Lactated) 1,000 mls @ 150 mls/hr IV ASDIRECTED [facility] Last Admin: 11/17/18 17:56 Dose: 150 mls/hr Sodium Chloride (Normal Saline) 100 mls @ 75 mls/hr IV ASDIRECTED [facility] Last Admin: 11/17/18 19:20 Dose: 75 mls/hr Diltiazem HCl 125 mg/ Sodium (Chloride) 125 mls @ 10 mls/hr IV TITRATE [facility]; Protocol Ceftriaxone Sodium 1 gm/ (Sodium Chloride) 100 mls @ 200 mls/hr IV Q24H [facility] Last Admin: 11/19/18 09:38 Dose: 200 mls/hr Sodium Chloride (Normal Saline) Confirm Administered Dose 1,000 mls @ as directed .ROUTE .STK-MED ONE Stop: 11/18/18 00:02 Last Admin: 11/18/18 00:12 Dose: 25 mls/hr Sodium Chloride (Normal Saline) 1,000 mls @ 25 mls/hr IV ASDIRECTED [facility] Stop: 11/22/18 00:08 Vancomycin HCl 1 gm/Vancomycin HCl 250 mg/ Sodium Chloride 250 mls @ 166.667 mls/hr IV Q12H [facility] Last Admin: 11/18/18 10:34 Dose: Not Given Vancomycin HCl 1 gm/Vancomycin HCl 250 mg/ Sodium Chloride 250 mls @ 166.667 mls/hr IV Q12H [facility] Last Admin: 11/18/18 20:47 Dose: 166.667 mls/hr Ceftriaxone Sodium 2 gm/ (Sodium Chloride) 100 mls @ 200 mls/hr IV Q24H [facility] Last Admin: 11/20/18 08:24 Dose: 200 mls/hr Iopamidol (Isovue-370 (76%)) 100 ml IV ONETIME ONE Stop: 11/17/18 18:49 Last Admin: 11/17/18 19:17 Dose: 100 ml Non-Formulary Medication (Alpha Lipoic Acid [Alpha Lipoic Acid]) 300 mg PO DAILY [facility] Last Admin: 11/18/18 10:34 Dose: Not Given Non-Formulary Medication (Trolamine Salicylate/Aloe Vera) 1 appful TRDERM QID PRN PRN Reason: Pain Potassium Chloride (Klor-Con M20) 40 meq PO [facility] Stop: 11/19/18 08:01 Last Admin: 11/19/18 09:43 Dose: Not Given Trimethoprim/Sulfamethoxazole (Septra Ds) 1 tab PO ONETIME ONE Stop: 11/17/18 19:36 Last Admin: 11/17/18 19:48 Dose: 1 tab Vancomycin HCl (Vancomycin) 1,444.47 mg 15 mg/kg (1444.47 mg) IV Q12H [facility] Last Admin: 11/18/18 10:34 Dose: Not Given Vancomycin HCl (Pharmacy To Dose - Vancomycin) 0 dose .XX ASDIRECTED PRN PRN Reason: RX TO DOSE VANCO - Exam General: Reports: Alert, Oriented HEENT: Reports: Pupils Equal, Pupils Reactive Lungs: Reports: Clear to Auscultation, Normal Respiratory Effort Cardiovascular: Reports: Regular Rate, Regular Rhythm GI/Abdominal Exam: Normal Bowel Sounds, Soft, Non-Tender, No Distention Extremities: Normal Inspection, Normal Range of Motion, No Pedal Edema Skin: Reports: Warm, Dry Psy/Mental Status: Reports: Alert, Normal Affect, Normal Mood
[2018-11-21 09:26] VITALS: BP 123/62
== END 2018-11-21 14:20 | DRG 698 ==
LOC: JD.ED 16:22 → JD.MS 20:30
PROVIDERS: ADMIT Internal Medicine; ATTEND Internal Medicine
DX: T83.510A Infection and inflammatory reaction due to cystostomy catheter, initial encounter (principal); G92 Toxic encephalopathy; R09.02 Hypoxemia; N39.0 Urinary tract infection, site not specified; I10 Essential (primary) hypertension; G82.20 Paraplegia, unspecified; B96.1 Klebsiella pneumoniae [K. pneumoniae] as the cause of diseases classified elsewhere; Y84.6 Urinary catheterization as the cause of abnormal reaction of the patient, or of later complication, without mention of misadventure at the time of the procedure; N31.9 Neuromuscular dysfunction of bladder, unspecified; I12.9 Hypertensive chronic kidney disease with stage 1 through stage 4 chronic kidney disease, or unspecified chronic kidney disease; N18.3 Chronic kidney disease, stage 3 (moderate); L89.309 Pressure ulcer of unspecified buttock, unspecified stage; G89.4 Chronic pain syndrome; G43.909 Migraine, unspecified, not intractable, without status migrainosus; F41.9 Anxiety disorder, unspecified; F32.9 Major depressive disorder, single episode, unspecified; J45.909 Unspecified asthma, uncomplicated; E66.9 Obesity, unspecified; R00.0 Tachycardia, unspecified; D68.2 Hereditary deficiency of other clotting factors; R91.8 Other nonspecific abnormal finding of lung field; R53.1 Weakness; R41.82 Altered mental status, unspecified; R51 Headache; E89.0 Postprocedural hypothyroidism; F17.210 Nicotine dependence, cigarettes, uncomplicated; L89.319 Pressure ulcer of right buttock, unspecified stage; M54.10 Radiculopathy, site unspecified; Z88.1 Allergy status to other antibiotic agents; Z68.31 Body mass index [BMI] 31.0-31.9, adult; Z88.8 Allergy status to other drugs, medicaments and biological substances; Z98.2 Presence of cerebrospinal fluid drainage device; Z90.710 Acquired absence of both cervix and uterus; Z79.890 Hormone replacement therapy; Z79.899 Other long term (current) drug therapy; Z87.440 Personal history of urinary (tract) infections; Z22.322 Carrier or suspected carrier of Methicillin resistant Staphylococcus aureus
CPT/HCPCS: 36415; 36600; 71045; 71275; 80053; 81001; 82803; 83605; 83735; 84484; 85007; 85027; 85379; 87040 ×2; 87086; 87088; 87186; 93005 ×2; 96360; 96361; 99285; A9270; J7030; J7120; Q9967; 51702; 80048; 85025; 86140; 87641; 93010; 94760; 94761; 97161-GP; 97165-GO; 97530-GP; J0696; J1650; J2060; J3370; J7040; J7050

== ENCOUNTER 2018-11-22 10:16 | Emergency (ER) | payer MEDICAID ==
[2018-11-22 10:35] VITALS: BP 101/67
--- NOTE | 2018-11-22 10:45 | EDM.PDOC ---
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 The staff reported she received Dilaudid earlier today around [id number]. Shortly afterwards her symptoms developed. EMS reports when they arrived her Saturation was 70%, they put her on 6 L NC. She is currently awake, lethargic and oriented x 3 her oxygen saturation is 98 % on 3 L NC. She has NO drift and follows commands appropriately. She does complain of a headache. She has a history of paraplegic from previous back surgery in 2014. She has a indwelling catheter. Onset: Today, Sudden Onset Date: 11/22/18 Onset Time: 09:30 Duration: Intermittent Severity: Mild Improves with: Reports: None Worsens with: Reports: None Associated Symptoms: Reports: No Other Symptoms, Headaches, Weakness - Related Data Allergies Allergy/AdvReac Type Severity Reaction Status Date / Time cefixime [From Suprax] Allergy Mild Itching Verified 11/22/18 10:25 Home Meds: Home Meds Acetaminophen [Tylenol] 650 mg PO TID PRN 11/17/18 [History] Alpha Lipoic Acid 300 mg PO DAILY 11/17/18 [History] Baclofen 20 mg PO QID 11/17/18 [History] Bisacodyl 10 mg RC DAILY PRN 11/17/18 [History] Bisacodyl [Dulcolax] 10 mg PO DAILY PRN 11/17/18 [History] HYDROmorphone [Dilaudid] 1 mg PO Q6H PRN 11/17/18 [History] LORazepam [Ativan] 0.5 mg PO BEDTIME 11/17/18 [History] Levothyroxine 150 mcg PO ACBREAKFAST 11/17/18 [History] Loperamide HCl [Imodium A-D] 2 tab PO TID PRN 11/17/18 [History] Magnesium Citrate 150 ml PO TID PRN 11/17/18 [History] Mirtazapine 15 mg PO BEDTIME 11/17/18 [History] Multivitamin [Daily Multiple Vitamin] 1 tab PO DAILY 11/17/18 [History] Naproxen Sodium [Aleve] 2 tab PO BEDTIME 11/17/18 [History] Ondansetron [Zofran ODT] 1 tab PO TID PRN 11/17/18 [History] Polyethylene Glycol 3350 [MiraLAX] 17 g PO TID PRN 11/17/18 [History] Pregabalin [Lyrica] 150 mg PO TID 11/17/18 [History] SUMAtriptan Succinate [Imitrex] 100 mg PO BID PRN 11/17/18 [History] Trolamine Salicylate/Aloe Vera [Aspercreme 10% Cream] 1 appful TRDERM QID PRN [History] Mupirocin Oint [Bactroban Oint] 0 gm TOP TID #1 tube 11/21/18 [Rx] Sulfamethoxazole/Trimethoprim [Septra DS] 1 tab PO BID #20 tablet 11/21/18 [Rx] Past Medical History HEENT History: Reports: None Cardiovascular History: Reports: Hypertension Respiratory History: Reports: Intubation, Previous Gastrointestinal History: Reports: Other (See Below) Other Gastrointestinal History: abdominal pain Genitourinary History: Reports: Neurogenic Bladder, Other (See Below) Other Genitourinary History: suprapubic catheter, acute kidney injury, chronic UTI 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 Most recent back surgery was in March of 2015. Pt has some post surgical complications with numbness and tingling in lower legs and unable to ambulate unless she is using a walker. 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, arachnoiditis, encephalopathy, back surgery x4, right frontal ventriculostomy Psychiatric History: Reports: Anxiety, Depression Endocrine/Metabolic History: Reports: Hypothyroidism, Obesity/BMI 30+ Hematologic History: Reports: None Immunologic History: Reports: None Oncologic (Cancer) History: Reports: None Dermatologic History: Reports: Other (See Below) Other Dermatologic History: old sore to her buttocks that is still healing - Infectious Disease History Infectious Disease History: Reports: Chicken Pox, Measles - Past Surgical History Head Surgeries/Procedures: Reports: Other (See Below) HEENT Surgical History: Reports: Oral Surgery, Tonsillectomy Cardiovascular Surgical History: Reports: None Respiratory Surgical History: Reports: None GI Surgical History: Reports: None Female Surgical History: Reports: Hysterectomy, Suprapubic Catheter Placement Endocrine Surgical History: Reports: Thyroidectomy Neurological Surgical History: Reports: Lumbar Spine Oncologic Surgical History: Reports: None Social & Family History - Family History Family Medical History: Noncontributory - Caffeine Use Caffeine Use: Reports: Other - Living Situation & Occupation Living situation: Reports: , with Significant Other (Boyfriend) Occupation: Disabled ED ROS GENERAL - Review of Systems Review Of Systems: See Below Constitutional: Denies: Fever, Chills HEENT: Reports: No Symptoms Respiratory: Reports: No Symptoms Cardiovascular: Reports: No Symptoms Endocrine: Reports: No Symptoms GI/Abdominal: Reports: No Symptoms : Reports: Incontinence, Other (history of paraplegic, has indwelling catheter.) Musculoskeletal: Reports: Other (chronic pain ) Skin: Reports: No Symptoms Neurological: Reports: Headache Psychiatric: Reports: No Symptoms Hematologic/Lymphatic: Reports: No Symptoms Immunologic: Reports: No Symptoms ED EXAM, NEURO - Physical Exam Exam: See Below Exam Limited By: Altered Mental Status General Appearance: WD/WN, No Apparent Distress, Lethargic Eye Exam: Bilateral Eye: EOMI, PERRL Ears: Normal External Exam, Normal Canal, Hearing Grossly Normal, Normal TMs Nose: Normal Inspection, Normal Mucosa, No Blood Throat/Mouth: Normal Inspection, Normal Lips, Normal Teeth, Normal Gums, Normal Oropharynx, Normal Voice, No Airway Compromise Head Exam: Atraumatic, Normocephalic Neck: Normal Inspection, Supple, Non-Tender, Full Range of Motion Respiratory/Chest: No Respiratory Distress, Lungs Clear, Normal Breath Sounds, No Accessory Muscle Use Cardiovascular: Normal Peripheral Pulses, Regular Rate, Rhythm, No Edema, No Gallop, No JVD, No Murmur, No Rub GI/Abdominal: Normal Bowel Sounds, Soft, Non-Tender, No Organomegaly, No Distention, No Abnormal Bruit, No Mass, Pelvis Stable Neurological: Normal Mood/Affect, Normal Dorsiflexion, CN II-XII Intact, Oriented x 3, Other (lethargic, paraplegic) Extremities: Normal Inspection, No Pedal Edema, Normal Capillary Refill, Other ( paraplegic) Skin Exam: Warm, Dry, Intact, Normal Color, No Rash, Other (old healing decubitis on coccyx area.) Course - Vital Signs Last Recorded V/S: Last Vital Signs Temp 98.7 F 11/22/18 10:29 Pulse 64 11/22/18 10:29 Resp 20 11/22/18 10:29 BP 101/67 11/22/18 10:29 Pulse Ox 93 L 11/22/18 10:29 - Orders/Labs/Meds Orders: Active Orders 24 hr Category Date Time Status Oxygen Therapy, ED [RC] ASDIRECTED Care 11/22/18 10:51 Active Naproxen [Naprosyn] Med 11/22/18 14:20 Once 500 mg PO ONETIME ONE Sodium Chloride 0.9% [Normal Saline] 1,000 ml Med 11/22/18 11:30 Active IV ASDIRECTED Medication Orders Sodium Chloride (Normal Saline) 1,000 mls @ 999 mls/hr IV ASDIRECTED SHAWNA Last Admin: 11/22/18 14:05 Dose: 500 mls/hr Infusion: 11/22/18 13:50 Dose: 999 mls/hr Admin: 11/22/18 12:49 Dose: 999 mls/hr Labs: Laboratory Tests 11/22/18 11/22/18 11/22/18 Range/Units 10:24 11:30 11:30 WBC (3.98-10.04) K/mm3 RBC (3.98-5.22) M/mm3 Hgb (11.2-15.7) gm/L Hct (34.1-44.9) % MCV (79.4-94.8) fl MCH (25.6-32.2) pg MCHC (32.2-35.5) g/dl RDW Std Deviation (36.4-46.3) fL Plt Count (182-369) K/mm3 MPV (9.4-12.3) fl Neut % (Auto) (34.0-71.1) % Lymph % (Auto) (19.3-51.7) % [place] % (Auto) (4.7-12.5) % Eos % (Auto) (0.7-5.8) Baso % (Auto) (0.1-1.2) % Neut # (Auto) (1.56-6.13) K/mm3 Lymph # (Auto) (1.18-3.74) K/mm3 [place] # (Auto) (0.24-0.36) K/mm3 Eos # (Auto) (0.04-0.36) K/mm3 Baso # (Auto) (0.01-0.08) K/mm3 Sodium (136-145) mEq/L Potassium (3.5-5.1) mEq/L Chloride (98-107) mEq/L Carbon Dioxide (21-32) mEq/L Anion Gap (5-15) BUN (7-18) mg/dL Creatinine (0.55-1.02) mg/dL Est Cr Clr Drug Dosing mL/min Estimated GFR (MDRD) (>60) mL/min BUN/Creatinine Ratio (14-18) Glucose (74-106) mg/dL POC Glucose 91 (70-105) mg/dL Calcium (8.5-10.1) mg/dL Total Bilirubin (0.2-1.0) mg/dL AST (15-37) U/L ALT (14-59) U/L Alkaline Phosphatase (46-116) U/L Total Protein (6.4-8.2) g/dl Albumin (3.4-5.0) g/dl Globulin gm/dL Albumin/Globulin Ratio (1-2) Urine Color Yellow (Yellow) Urine Appearance Clear (Clear) Urine pH 7.0 (5.0-8.0) Ur Specific [place] 1.020 (1.005-1.030) Urine Protein 1+ H (Negative) Urine Glucose (UA) Negative (Negative) Urine Ketones Negative (Negative) Urine Occult Blood 2+ H (Negative) Urine Nitrite Negative (Negative) Urine Bilirubin Negative (Negative) Urine Urobilinogen 0.2 (0.2-1.0) Ur Leukocyte Esterase 1+ H (Negative) Urine Opiates Screen Presumptive positive H (DTYMWP=123) Ur Buprenorphine Scrn Negative (CUTOFF=10) Ur Oxycodone Screen Negative (LOC2QC=015) Urine Methadone Screen Negative (NURGEV=945) Ur Propoxyphene Screen Negative (EJPZKF=277) Ur Barbiturates Screen Negative (CAQDWF=693) Ur Tricyclics Screen Negative (JMLGDB=011) Ur Phencyclidine Scrn Negative (CUTOFF=25) Ur Amphetamine Screen Negative (MXRITB=756) U Methamphetamines Scrn Negative (WCZAXV=375) U Benzodiazepines Scrn Presumptive positive H (HMBJHE=516) U Cocaine Metab Screen Negative (NRNNIV=727) U Marijuana (THC) Screen Negative (CUTOFF=50) 11/22/18 11/22/18 Range/Units 13:15 13:15 WBC 7.62 (3.98-10.04) K/mm3 RBC 5.74 H (3.98-5.22) M/mm3 Hgb 16.4 H (11.2-15.7) gm/L Hct 52.0 H (34.1-44.9) % MCV 90.6 (79.4-94.8) fl MCH 28.6 (25.6-32.2) pg MCHC 31.5 L (32.2-35.5) g/dl RDW Std Deviation 53.5 H (36.4-46.3) fL Plt Count 265 (182-369) K/mm3 MPV 10.9 (9.4-12.3) fl Neut % (Auto) 64.7 (34.0-71.1) % Lymph % (Auto) 26.6 (19.3-51.7) % Am[place] % (Auto) 7.5 (4.7-12.5) % Eos % (Auto) 0 L (0.7-5.8) Baso % (Auto) 0.3 (0.1-1.2) % Neut # (Auto) 4.93 (1.56-6.13) K/mm3 Lymph # (Auto) 2.03 (1.18-3.74) K/mm3 [place] # (Auto) 0.57 H (0.24-0.36) K/mm3 Eos # (Auto) 0.00 L (0.04-0.36) K/mm3 Baso # (Auto) 0.02 (0.01-0.08) K/mm3 Sodium 143 (136-145) mEq/L Potassium 4.7 (3.5-5.1) mEq/L Chloride 105 (98-107) mEq/L Carbon Dioxide 32 (21-32) mEq/L Anion Gap 10.7 (5-15) BUN 16 (7-18) mg/dL Creatinine 1.1 H (0.55-1.02) mg/dL Est Cr Clr Drug Dosing 60.39 mL/min Estimated GFR (MDRD) 52 (>60) mL/min BUN/Creatinine Ratio 14.5 (14-18) Glucose 81 (74-106) mg/dL POC Glucose (70-105) mg/dL Calcium 9.2 (8.5-10.1) mg/dL Total Bilirubin 0.5 (0.2-1.0) mg/dL AST 27 (15-37) U/L ALT 30 (14-59) U/L Alkaline Phosphatase 120 H (46-116) U/L Total Protein 7.8 (6.4-8.2) g/dl Albumin 3.2 L (3.4-5.0) g/dl Globulin 4.6 gm/dL Albumin/Globulin Ratio 0.7 L (1-2) Urine Color (Yellow) Urine Appearance (Clear) Urine pH (5.0-8.0) Ur Specific [place] (1.005-1.030) Urine Protein (Negative) Urine Glucose (UA) (Negative) Urine Ketones (Negative) Urine Occult Blood (Negative) Urine Nitrite (Negative) Urine Bilirubin (Negative) Urine Urobilinogen (0.2-1.0) Ur Leukocyte Esterase (Negative) Urine Opiates Screen (JZYBLE=287) Ur Buprenorphine Scrn (CUTOFF=10) Ur Oxycodone Screen (LWD1HU=584) Urine Methadone Screen (PDHJCH=266) Ur Propoxyphene Screen (QFZDOL=488) Ur Barbiturates Screen (ZWAWIF=498) Ur Tricyclics Screen (NDKEBY=282) Ur Phencyclidine Scrn (CUTOFF=25) Ur Amphetamine Screen (DVUCWL=578) U Methamphetamines Scrn (SBSYTT=485) U Benzodiazepines Scrn (WVOUOK=008) U Cocaine Metab Screen (PVLHHO=784) U Marijuana (THC) Screen (CUTOFF=50) Meds: Medications Generic Name Dose Route Start Last Admin Trade Name Freq PRN Reason Stop Dose Admin Sodium Chloride 1,000 mls @ 999 mls/hr 11/22/18 11:30 11/22/18 14:05 Normal Saline IV 500 mls/hr ASDIRECTED SHAWNA Administration Discontinued Medications Generic Name Dose Route Start Last Admin Trade Name Freq PRN Reason Stop Dose Admin Acetaminophen 650 mg 11/22/18 11:20 11/22/18 12:49 Tylenol PO 11/22/18 11:21 650 mg NOW ONE Administration - Re-Assessments/Exams Free Text/Narrative Re-Assessment/Exam: 11/22/18 11:06 oxygen level is 98 % on 2 LT NC 11/22/18 13:58 I reviewed her medication record and she received narcotics last this morning at 0503 1 mg hydromorphone. She received NS and her B/P is 93/58. I don't feel her lethargic episode was due to TIA or stroke. I feel this was due to her hydromorphone and dehydration. Her WBC 7.62 H & H 16.4/52.0 Urinalysis negative except + 1 protein and + 1 leukocytes. Na + 143 K+ 4.7, chl 105, osman 32 bun 16 creatine 1.1 11/22/18 14:27 patient is awake drinking juice and eating monalisa crackers. I will discharge back to assisted. Instructed to follow up with PCP as needed. Instructed to return to the ER for any new or acute worsening symptoms. I would recommend a different pain reliever that is not as strong to prevent these reoccurring episodes. She verbalized understanding and is comfortable with plan for discharge. She is stable at time of discharge. Departure - Departure Time of Disposition: 14:31 Disposition: DC/Tfer to SNF 03 Condition: Good Clinical Impression: Dehydration Drug overdose Qualifiers: Encounter type: sequela Injury intent: accidental or unintentional Qualified Code(s): T50.901S - Poisoning by unspecified drugs, medicaments and biological substances, accidental (unintentional), sequela - Discharge Information Instructions: Dehydration, Adult, [id number], Accidental Overdose Referrals: PCP,None [Primary Care Provider] - Additional Instructions: You have been diagnosis with accidental drug overdose and dehydration. I recommend you have your pain medication adjusted to prevent this from happening again. To need to increase you fluid intake to prevent dehydration. Follow up with your PCP. Return to the ER for any new or acute worsening symptoms. - My Orders Last 24 Hours: My Active Orders 11/22/18 10:51 Oxygen Therapy, ED [RC] ASDIRECTED 11/22/18 11:30 Sodium Chloride 0.9% [Normal Saline] 1,000 ml IV ASDIRECTED 11/22/18 14:20 Naproxen [Naprosyn] 500 mg PO ONETIME ONE - Assessment/Plan Last 24 Hours: My Active Orders 11/22/18 10:51 Oxygen Therapy, ED [RC] ASDIRECTED 11/22/18 11:30 Sodium Chloride 0.9% [Normal Saline] 1,000 ml IV ASDIRECTED 11/22/18 14:20 Naproxen [Naprosyn] 500 mg PO ONETIME ONE
[2018-11-22] MEDS ORDERED: Acetaminophen 325 MG Tab PO ONE (11:20)
[2018-11-22] MEDS: Sodium Chloride 0.9% 1,000 ML IV SCH ×2 (12:49→14:05)
[2018-11-22] MEDS ORDERED: Naproxen 500 MG Tab PO ONE (14:20)
== END 2018-11-22 15:54 ==
LOC: JD.ED 10:16
DX: T50.901A Poisoning by unspecified drugs, medicaments and biological substances, accidental (unintentional), initial encounter (principal); E86.0 Dehydration; I10 Essential (primary) hypertension; F41.9 Anxiety disorder, unspecified; F32.9 Major depressive disorder, single episode, unspecified; E03.9 Hypothyroidism, unspecified; Z88.8 Allergy status to other drugs, medicaments and biological substances; Z79.899 Other long term (current) drug therapy
CPT/HCPCS: 36415; 80053; 80306; 81003; 82962; 85025; 96360; 96361; 99284; A9270; J7040; 99285

== ENCOUNTER 2019-01-18 07:42 | Inpatient (IN) | payer MEDICAID ==
[2019-01-18] MEDS ORDERED: Sodium Chloride 0.9% 10 ML Syringe FLUSH PRN (08:11)
[2019-01-18] MEDS ORDERED: Ondansetron 4 MG/2 ML SDV IVPUSH ONE (08:15)
[2019-01-18] MEDS ORDERED: Naloxone 2 MG/2 ML Syringe IVPUSH ONE (08:15)
[2019-01-18] MEDS ORDERED: Sodium Chloride 0.9% 500 ML IV ONE (09:30)
--- NOTE | 2019-01-18 10:55 | CR ---
Chest: Portable view of the chest was obtained. Comparison: Prior chest x-ray of 11/17/18. Heart size is normal. Tortuous thoracic aorta is seen. Minimal atelectasis is seen within the right base. Lungs otherwise are clear. Bony structures show slight scoliosis within the spine. Impression: 1. Incidental findings. Nothing acute is appreciated on portable chest x-ray. Diagnostic code #2
[2019-01-18] MEDS ORDERED: Ampicillin/Sulbactam Na 3 GM in Sodium Chloride 0.9% 100 ML IV ONE (11:04)
[2019-01-18] MEDS ORDERED: Albuterol/Ipratropium 3.0-0.5 MG/3 ML Neb Soln NEB ONE ×2 (11:29→12:44)
[2019-01-18] MEDS ORDERED: methylPREDNISolone Sodium Succinate 125 MG/2 ML SDV IVPUSH ONE (12:29)
--- NOTE | 2019-01-18 12:52 | EDM.PDOC ---
ED HPI GENERAL MEDICAL PROBLEM - General Chief Complaint: Respiratory Problem Stated Complaint: [facility] Time Seen by Provider: 01/18/19 07:55 Source of Information: Reports: EMS, Alf Records History Limitations: Reports: Altered Mental Status - History of Present Illness INITIAL COMMENTS - FREE TEXT/NARRATIVE: The patient presents by [facility] from the [facility] for altered mental status and low oxygen saturations. She is in the [facility] because of paraplegia from back surgery back in 2014. She was given dilaudid 1mg by mouth at 1am this morning and a benzo last night. She was not responding well this morning. EMS gave her a breathing treatment on the way and that did help some. She does have some rhonchi when breathing. Onset: Gradual Duration: Hour(s): Severity: Moderate Improves with: Reports: None Worsens with: Reports: None Associated Symptoms: Reports: Cough, Shortness of Breath. Denies: Chest Pain, Fever/Chills, Headaches, Nausea/Vomiting - Related Data Allergies Allergy/AdvReac Type Severity Reaction Status Date / Time cefixime [From Suprax] Allergy Mild Itching Verified 11/22/18 10:25 Home Meds: Home Meds Acetaminophen [Tylenol] 650 mg PO TID PRN 11/17/18 [History] Alpha Lipoic Acid 300 mg PO DAILY 11/17/18 [History] Baclofen 20 mg PO QID 11/17/18 [History] Bisacodyl 10 mg RC DAILY PRN 11/17/18 [History] Bisacodyl [Dulcolax] 10 mg PO DAILY PRN 11/17/18 [History] HYDROmorphone [Dilaudid] 1 mg PO Q6H PRN 11/17/18 [History] LORazepam [Ativan] 0.5 mg PO BEDTIME 11/17/18 [History] Levothyroxine 150 mcg PO ACBREAKFAST 11/17/18 [History] Loperamide HCl [Imodium A-D] 2 tab PO TID PRN 11/17/18 [History] Magnesium Citrate 150 ml PO TID PRN 11/17/18 [History] Mirtazapine 15 mg PO BEDTIME 11/17/18 [History] Multivitamin [Daily Multiple Vitamin] 1 tab PO DAILY 11/17/18 [History] Naproxen Sodium [Aleve] 2 tab PO BEDTIME 11/17/18 [History] Ondansetron [Zofran ODT] 1 tab PO TID PRN 11/17/18 [History] Polyethylene Glycol 3350 [MiraLAX] 17 g PO TID PRN 11/17/18 [History] Pregabalin [Lyrica] 150 mg PO TID 11/17/18 [History] SUMAtriptan Succinate [Imitrex] 100 mg PO BID PRN 11/17/18 [History] Trolamine Salicylate/Aloe Vera [Aspercreme 10% Cream] 1 appful TRDERM QID PRN [History] Mupirocin Oint [Bactroban Oint] 0 gm TOP TID #1 tube 11/21/18 [Rx] Sulfamethoxazole/Trimethoprim [Septra DS] 1 tab PO BID #20 tablet 11/21/18 [Rx] Past Medical History HEENT History: Reports: None Cardiovascular History: Reports: Hypertension Respiratory History: Reports: Intubation, Previous Gastrointestinal History: Reports: Other (See Below) Other Gastrointestinal History: abdominal pain Genitourinary History: Reports: Neurogenic Bladder, Other (See Below) Other Genitourinary History: suprapubic catheter, acute kidney injury, chronic UTI 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 Most recent back surgery was in March of 2015. Pt has some post surgical complications with numbness and tingling in lower legs and unable to ambulate unless she is using a walker. 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, arachnoiditis, encephalopathy, back surgery x4, right frontal ventriculostomy Psychiatric History: Reports: Anxiety, Depression Endocrine/Metabolic History: Reports: Hypothyroidism, Obesity/BMI 30+ Hematologic History: Reports: None Immunologic History: Reports: None Oncologic (Cancer) History: Reports: None Dermatologic History: Reports: Other (See Below) Other Dermatologic History: old sore to her buttocks that is still healing - Infectious Disease History Infectious Disease History: Reports: Chicken Pox, Measles - Past Surgical History Head Surgeries/Procedures: Reports: Other (See Below) HEENT Surgical History: Reports: Oral Surgery, Tonsillectomy Cardiovascular Surgical History: Reports: None Respiratory Surgical History: Reports: None GI Surgical History: Reports: None Female Surgical History: Reports: Hysterectomy, Suprapubic Catheter Placement Endocrine Surgical History: Reports: Thyroidectomy Neurological Surgical History: Reports: Lumbar Spine Oncologic Surgical History: Reports: None Social & Family History - Family History Family Medical History: Noncontributory - Caffeine Use Caffeine Use: Reports: Other - Living Situation & Occupation Living situation: Reports: , with Significant Other (Boyfriend) Occupation: Disabled ED ROS GENERAL - Review of Systems Review Of Systems: See Below Constitutional: Reports: No Symptoms HEENT: Reports: No Symptoms Respiratory: Reports: Shortness of Breath, Cough Cardiovascular: Reports: No Symptoms Endocrine: Reports: No Symptoms GI/Abdominal: Reports: No Symptoms : Reports: No Symptoms ED EXAM, GENERAL - Physical Exam Exam: See Below Exam Limited By: No Limitations General Appearance: Alert, No Apparent Distress Ears: Normal External Exam Nose: Normal Inspection Head: Atraumatic, Normocephalic Neck: Normal Inspection Respiratory/Chest: No Respiratory Distress, Decreased Breath Sounds, Rhonchi Cardiovascular: Regular Rate, Rhythm, No Edema, No Murmur GI/Abdominal: Soft, Non-Tender, No Organomegaly, No Mass Back Exam: Normal Inspection Extremities: Normal Inspection Course - Vital Signs Last Recorded V/S: Last Vital Signs Temp 95.6 F 01/18/19 07:42 Pulse 64 01/18/19 07:42 Resp 16 01/18/19 07:42 BP 147/79 H 01/18/19 07:42 Pulse Ox 98 01/18/19 11:43 - Orders/Labs/Meds Orders: Active Orders 24 hr Category Date Time Status Oxygen Therapy [RC] PRN Care 01/18/19 08:12 Active Peripheral IV Care [RC] . DIRECTED Care 01/18/19 08:12 Active Pulse Oximetry [RC] CONTINUOUS Care 01/18/19 08:12 Active RT Aerosol Therapy [RC] ASDIRECTED Care 01/18/19 11:29 Active ABG [BLOOD GAS ARTERIAL] [BG] Stat Lab 01/18/19 12:29 Ordered CULTURE BLOOD [BC] Stat Lab 01/18/19 07:57 Received CULTURE BLOOD [BC] Stat Lab 01/18/19 08:10 Received CULTURE URINE [RM] Stat Lab 01/18/19 10:45 Received Sodium Chloride 0.9% [Saline Flush] Med 01/18/19 08:11 Active 10 ml FLUSH ASDIRECTED PRN Blood Culture x2 Reflex Set [OM.PC] Stat Oth 01/18/19 08:11 Ordered Peripheral IV Insertion Adult [OM.PC] Stat Ot 01/18/19 08:11 Ordered Medication Orders Sodium Chloride (Saline Flush) 10 ml FLUSH ASDIRECTED PRN PRN Reason: Keep Vein Open Last Admin: 01/18/19 08:21 Dose: 10 ml Labs: Laboratory Tests 01/18/19 01/18/19 01/18/19 Range/Units 07:57 07:57 08:10 WBC 7.93 (3.98-10.04) K/mm3 RBC 5.88 H (3.98-5.22) M/mm3 Hgb 17.3 H (11.2-15.7) gm/L Hct 55.0 H (34.1-44.9) % MCV 93.5 (79.4-94.8) fl MCH 29.4 (25.6-32.2) pg MCHC 31.5 L (32.2-35.5) g/dl RDW Std Deviation 54.5 H (36.4-46.3) fL Plt Count 134 L D (182-369) K/mm3 MPV 11.0 (9.4-12.3) fl Neut % (Auto) 80.1 H (34.0-71.1) % Lymph % (Auto) 13.0 L (19.3-51.7) % Powell % (Auto) 6.4 (4.7-12.5) % Eos % (Auto) 0 L (0.7-5.8) Baso % (Auto) 0.1 (0.1-1.2) % Neut # (Auto) 6.35 H (1.56-6.13) K/mm3 Lymph # (Auto) 1.03 L (1.18-3.74) K/mm3 Powell # (Auto) 0.51 H (0.24-0.36) K/mm3 Eos # (Auto) 0.00 L (0.04-0.36) K/mm3 Baso # (Auto) 0.01 (0.01-0.08) K/mm3 Sodium 143 (136-145) mEq/L Potassium 4.9 (3.5-5.1) mEq/L Chloride 104 (98-107) mEq/L Carbon Dioxide 33 H (21-32) mEq/L Anion Gap 10.9 (5-15) BUN 14 (7-18) mg/dL Creatinine 0.8 (0.55-1.02) mg/dL Est Cr Clr Drug Dosing 83.04 mL/min Estimated GFR (MDRD) > 60 (>60) mL/min BUN/Creatinine Ratio 17.5 (14-18) Glucose 139 H (74-106) mg/dL Lactic Acid 0.8 (0.4-2.0) mmol/L Calcium 8.8 (8.5-10.1) mg/dL Total Bilirubin 0.5 (0.2-1.0) mg/dL AST 14 L (15-37) U/L ALT 23 (14-59) U/L Alkaline Phosphatase 154 H (46-116) U/L Total Protein 7.5 (6.4-8.2) g/dl Albumin 3.2 L (3.4-5.0) g/dl Globulin 4.3 gm/dL Albumin/Globulin Ratio 0.7 L (1-2) Urine Color (Yellow) Urine Appearance (Clear) Urine pH (5.0-8.0) Ur Specific Clark (1.005-1.030) Urine Protein (Negative) Urine Glucose (UA) (Negative) Urine Ketones (Negative) Urine Occult Blood (Negative) Urine Nitrite (Negative) Urine Bilirubin (Negative) Urine Urobilinogen (0.2-1.0) Ur Leukocyte Esterase (Negative) Urine RBC (0-5) /hpf Urine WBC (0-5) /hpf Urine WBC Clumps (NOT SEEN) /hpf Ur Squamous Epith Cells (0-5) /hpf Urine Bacteria (FEW) /hpf Urine Mucus (FEW) /hpf Urine Opiates Screen (UZUWKI=957) Ur Buprenorphine Scrn (CUTOFF=10) Ur Oxycodone Screen (PFN5HC=025) Urine Methadone Screen (SITRJR=213) Ur Propoxyphene Screen (TEFGUX=818) Ur Barbiturates Screen (KZZQWP=521) Ur Tricyclics Screen (LTAFDZ=777) Ur Phencyclidine Scrn (CUTOFF=25) Ur Amphetamine Screen (DBYTNF=918) U Methamphetamines Scrn (YFTFHU=211) U Benzodiazepines Scrn (ISIWYA=844) U Cocaine Metab Screen (XOEXAO=754) U Marijuana (THC) Screen (CUTOFF=50) 01/18/19 01/18/19 Range/Units 09:40 09:40 WBC (3.98-10.04) K/mm3 RBC (3.98-5.22) M/mm3 Hgb (11.2-15.7) gm/L Hct (34.1-44.9) % MCV (79.4-94.8) fl MCH (25.6-32.2) pg MCHC (32.2-35.5) g/dl RDW Std Deviation (36.4-46.3) fL Plt Count (182-369) K/mm3 MPV (9.4-12.3) fl Neut % (Auto) (34.0-71.1) % Lymph % (Auto) (19.3-51.7) % Powell % (Auto) (4.7-12.5) % Eos % (Auto) (0.7-5.8) Baso % (Auto) (0.1-1.2) % Neut # (Auto) (1.56-6.13) K/mm3 Lymph # (Auto) (1.18-3.74) K/mm3 Powell # (Auto) (0.24-0.36) K/mm3 Eos # (Auto) (0.04-0.36) K/mm3 Baso # (Auto) (0.01-0.08) K/mm3 Sodium (136-145) mEq/L Potassium (3.5-5.1) mEq/L Chloride (98-107) mEq/L Carbon Dioxide (21-32) mEq/L Anion Gap (5-15) BUN (7-18) mg/dL Creatinine (0.55-1.02) mg/dL Est Cr Clr Drug Dosing mL/min Estimated GFR (MDRD) (>60) mL/min BUN/Creatinine Ratio (14-18) Glucose (74-106) mg/dL Lactic Acid (0.4-2.0) mmol/L Calcium (8.5-10.1) mg/dL Total Bilirubin (0.2-1.0) mg/dL AST (15-37) U/L ALT (14-59) U/L Alkaline Phosphatase (46-116) U/L Total Protein (6.4-8.2) g/dl Albumin (3.4-5.0) g/dl Globulin gm/dL Albumin/Globulin Ratio (1-2) Urine Color Yellow (Yellow) Urine Appearance Cloudy H (Clear) Urine pH 5.5 (5.0-8.0) Ur Specific Clark 1.020 (1.005-1.030) Urine Protein Trace H (Negative) Urine Glucose (UA) Negative (Negative) Urine Ketones Negative (Negative) Urine Occult Blood 2+ H (Negative) Urine Nitrite Positive H (Negative) Urine Bilirubin Negative (Negative) Urine Urobilinogen 0.2 (0.2-1.0) Ur Leukocyte Esterase 2+ H (Negative) Urine RBC 0-5 (0-5) /hpf Urine WBC 10-20 H (0-5) /hpf Urine WBC Clumps Few (NOT SEEN) /hpf Ur Squamous Epith Cells 0-5 (0-5) /hpf Urine Bacteria Moderate H (FEW) /hpf Urine Mucus Few (FEW) /hpf Urine Opiates Screen Presumptive positive H (QJMCPT=671) Ur Buprenorphine Scrn Negative (CUTOFF=10) Ur Oxycodone Screen Negative (MVM5OG=449) Urine Methadone Screen Negative (YFFGDX=457) Ur Propoxyphene Screen Negative (FYTNTX=678) Ur Barbiturates Screen Negative (MFRCPA=139) Ur Tricyclics Screen Negative (UBZIHR=798) Ur Phencyclidine Scrn Negative (CUTOFF=25) Ur Amphetamine Screen Negative (MFEJER=339) U Methamphetamines Scrn Negative (GQWNSS=037) U Benzodiazepines Scrn Presumptive positive H (RPOEVI=189) U Cocaine Metab Screen Negative (REEXYN=507) U Marijuana (THC) Screen Negative (CUTOFF=50) Meds: Medications Generic Name Dose Route Start Last Admin Trade Name Freq PRN Reason Stop Dose Admin Sodium Chloride 10 ml 01/18/19 08:11 01/18/19 08:21 Saline Flush FLUSH 10 ml ASDIRECTED PRN Administration Keep Vein Open Discontinued Medications Generic Name Dose Route Start Last Admin Trade Name Freq PRN Reason Stop Dose Admin Albuterol/Ipratropium 3 ml 01/18/19 11:29 01/18/19 11:41 Duoneb 3.0-0.5 Mg/3 Ml NEB 01/18/19 11:30 3 ml ONETIME ONE Administration Sodium Chloride 500 mls @ 1,000 mls/hr 01/18/19 09:30 01/18/19 09:40 Normal Saline IV 01/18/19 09:59 1,000 mls/hr .BOLUS ONE Administration Ampicillin Sodium/Sulbactam 100 mls @ 200 mls/hr 01/18/19 11:04 01/18/19 11: 20 Sodium 3 gm/ Sodium Chloride IV 01/18/19 11:33 200 mls/hr ONETIME ONE Administration Methylprednisolone Sodium Succinate 125 mg 01/18/19 12:29 Solu-Medrol IVPUSH 01/18/19 12:30 ONETIME ONE Naloxone HCl 2 mg 01/18/19 08:15 01/18/19 08:17 Narcan IVPUSH 01/18/19 08:16 2 mg ONETIME ONE Administration Ondansetron HCl 4 mg 01/18/19 08:15 01/18/19 08:15 Zofran IVPUSH 01/18/19 08:16 4 mg ONETIME ONE Administration - Re-Assessments/Exams Free Text/Narrative Re-Assessment/Exam: 01/18/19 12:56 I ordered oxygen, IV saline, lock, blood cultures, labs and lactic acid. I also ordered some narcan and she did wake up a little more. I gave her a duoneb and her saturations improved. Her CXR shows no infiltrates. Her CBC looks good. 01/18/19 12:59 Her glucose was slightly elevated at 139. Her lactic acid was normal at 0.8. Her UA shows no UTI. I ordered a urine culture and another duoneb and solu- medrol She is moving air better now. I feel she may have some lung problems such as asthma or emphysema. I feel she needs to be admitted. I called Dr Hauser and he agreed to the admission. Departure - Departure Time of Disposition: 13:05 Disposition: Admitted As Inpatient 64 Condition: Fair Clinical Impression: UTI, Urinary tract infectious disease, Hypoxia Reactive airway disease Qualifiers: Asthma severity: moderate Asthma persistence: persistent Asthma complication type: with acute exacerbation Qualified Code(s): J45.41 - Moderate persistent asthma with (acute) exacerbation - Discharge Information Referrals: Jd Cao MD [Primary Care Provider] - - My Orders Last 24 Hours: My Active Orders 01/18/19 07:57 CULTURE BLOOD [BC] Stat 01/18/19 08:10 CULTURE BLOOD [BC] Stat 01/18/19 08:11 Sodium Chloride 0.9% [Saline Flush] 10 ml FLUSH ASDIRECTED PRN Blood Culture x2 Reflex Set [OM.PC] Stat Peripheral IV Insertion Adult [OM.PC] Stat 01/18/19 08:12 Oxygen Therapy [RC] PRN Peripheral IV Care [RC] . DIRECTED Pulse Oximetry [RC] CONTINUOUS 01/18/19 10:45 CULTURE URINE [RM] Stat 01/18/19 11:29 RT Aerosol Therapy [RC] ASDIRECTED 01/18/19 12:29 ABG [BLOOD GAS ARTERIAL] [BG] Stat - Assessment/Plan Last 24 Hours: My Active Orders 01/18/19 07:57 CULTURE BLOOD [BC] Stat 01/18/19 08:10 CULTURE BLOOD [BC] Stat 01/18/19 08:11 Sodium Chloride 0.9% [Saline Flush] 10 ml FLUSH ASDIRECTED PRN Blood Culture x2 Reflex Set [OM.PC] Stat Peripheral IV Insertion Adult [OM.PC] Stat 01/18/19 08:12 Oxygen Therapy [RC] PRN Peripheral IV Care [RC] . DIRECTED Pulse Oximetry [RC] CONTINUOUS 01/18/19 10:45 CULTURE URINE [RM] Stat 01/18/19 11:29 RT Aerosol Therapy [RC] ASDIRECTED 01/18/19 12:29 ABG [BLOOD GAS ARTERIAL] [BG] Stat
[2019-01-18] MEDS ORDERED: Albuterol/Ipratropium 3.0-0.5 MG/3 ML Neb Soln NEB SCH (16:15)
[2019-01-18] MEDS: Albuterol/Ipratropium 3.0-0.5 MG/3 ML Neb Soln NEB SCH ×2 (16:41→20:57)
[2019-01-18] MEDS ORDERED: Magnesium Citrate Solution 296 ML Bottle PO PRN (17:16)
[2019-01-18] MEDS ORDERED: Polyethylene Glycol 3350 Powder 17 GM Packet PO PRN (17:16)
[2019-01-18] MEDS ORDERED: guaiFENesin 600 MG Tab.ER PO PRN (17:16)
--- NOTE | 2019-01-18 17:20 | PCM.HP ---
H&P History of Present Illness - General Date of Service: 01/18/19 Admit Problem/Dx: Admission Diagnosis/Problem Admission Diagnosis/Problem Hypoxia Source of Information: Provider - History of Present Illness Initial Comments - Free Text/Narative: 53-year-old paraplegic female was brought to the emergency room today from her care facility, [facility], secondary to altered mental status and low oxygen saturation. Patient was given breathing treatment on the way to the emergency room. History is obtained from old records since patient was too tired to give me a good history. when she first arrived in the emergency room she was on 10 L facemask and O2 sats were in the low 90s. In the emergency room she was given some Narcan and that did seem to wake her up a little more. White count and lactic acid were normal. UA did show positive nitrites and leukocytes , but patient does have an indwelling catheter. She did have Klebsiella pneumonia bacteria on her last visit in November that was sensitive to Unasyn. After DuoNeb and Solu-Medrol patient was moving air better. She does have a long history of episodes of reactive airway exacerbations. She has a history of moderate persistent asthma with acute exacerbations. patient did tell me she is having back pain. - Related Data Allergies/Adverse Reactions: Allergies Allergy/AdvReac Type Severity Reaction Status Date / Time cefixime [From Suprax] Allergy Mild Itching Verified 01/18/19 14:53 Home Medications: Home Meds Acetaminophen [Tylenol] 650 mg PO Q4H PRN 11/17/18 [History] Alpha Lipoic Acid 300 mg PO DAILY 11/17/18 [History] Baclofen 20 mg PO QID 11/17/18 [History] Bisacodyl 10 mg RC DAILY PRN 11/17/18 [History] HYDROmorphone [Dilaudid] 1 mg PO Q12H PRN 11/17/18 [History] LORazepam [Ativan] 0.5 mg PO BEDTIME 11/17/18 [History] Levothyroxine 150 mcg PO ACBREAKFAST 11/17/18 [History] Loperamide HCl [Imodium A-D] 2 tab PO TID PRN 11/17/18 [History] Magnesium Citrate 150 ml PO BID PRN 11/17/18 [History] Multivitamin [Daily Multiple Vitamin] 1 tab PO DAILY 11/17/18 [History] Naproxen Sodium [Aleve] 440 mg PO BEDTIME 11/17/18 [History] Ondansetron [Zofran ODT] 4 mg PO TID PRN 11/17/18 [History] SUMAtriptan Succinate [Imitrex] 100 mg PO BID PRN 11/17/18 [History] Trolamine Salicylate/Aloe Vera [Aspercreme 10% Cream] 1 appful TRDERM ASDIRECTED PRN 11/17/18 [History] Albuterol Sulfate 1 vial INH BID PRN 01/18/19 [History] DULoxetine HCl [Cymbalta] 60 mg PO DAILY 01/18/19 [History] Mag Hydrox/Al Hydrox/Simeth [[place]] 30 ml PO Q4H PRN 01/18/19 [History] Melatonin 10 mg PO BEDTIME 01/18/19 [History] Na Phos,M-B/Na Phos,DI-B [Fleet Enema] 1 applic RECTAL ASDIRECTED 01/18/19 [ History] Naloxone HCl [Narcan] 4 mg DEMETRI ASDIRECTED 01/18/19 [History] Polyethylene Glycol 3350 [MiraLAX] 17 gm PO DAILY PRN 01/18/19 [History] Pregabalin [Lyrica] 150 mg PO TID 01/18/19 [History] guaiFENesin [Mucinex] 600 mg PO BID PRN 01/18/19 [History] Past Medical History HEENT History: Reports: None, Other (See Below) Other HEENT History: nasal congestion Cardiovascular History: Reports: Hypertension Respiratory History: Reports: Intubation, Previous Other Respiratory History: chronic respiratory failure with hypoxia Gastrointestinal History: Reports: Chronic Constipation, Other (See Below) Other Gastrointestinal History: nausea Genitourinary History: Reports: Neurogenic Bladder, UTI, Recurrent, Other (See Below) Other Genitourinary History: suprapubic catheter, acute kidney injury, chronic UTI. tubulo-interstitial nephritis [employer] History: Reports: Musculoskeletal History: Reports: Back Pain, Chronic, Fracture Other Musculoskeletal History: paraplegic, 3 back surgeries. Most recent back surgery was in March of 2015. postlaminectomy syndrome; cramps; spasms'. 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 radiculopathy; restless leg syndrome Psychiatric History: Reports: Anxiety, Depression, Other (See Below) Other Psychiatric History: opioid dependence; insomnia Endocrine/Metabolic History: Reports: Hypothyroidism, Obesity/BMI 30+ Hematologic History: Reports: None Immunologic History: Reports: None Oncologic (Cancer) History: Reports: None Dermatologic History: Reports: Other (See Below) Other Dermatologic History: pressure ulcer to buttocks - Infectious Disease History Infectious Disease History: Reports: Chicken Pox, Measles, MRSA Other Infectious Disease History: hx mrsa in urine - Past Surgical History Head Surgeries/Procedures: Reports: Other (See Below) HEENT Surgical History: Reports: Oral Surgery, Tonsillectomy Other HEENT Surgeries/Procedures: recurrent oral aphthae Cardiovascular Surgical History: Reports: None Respiratory Surgical History: Reports: None GI Surgical History: Reports: None Female Surgical History: Reports: Hysterectomy, Suprapubic Catheter Placement Endocrine Surgical History: Reports: Thyroidectomy Neurological Surgical History: Reports: Lumbar Spine Oncologic Surgical History: Reports: None Social & Family History - Family History Family Medical History: Noncontributory - Tobacco Use Smoking Status *Q: Current Every Day Smoker Years of Tobacco use: 0 Packs/Tins Daily: 0.5 - Caffeine Use Caffeine Use: Reports: Other - Recreational Drug Use Recreational Drug Use: No - Living Situation & Occupation Living situation: Reports: , with Significant Other (Boyfriend) Occupation: Disabled H&P Review of Systems - Review of Systems: Review Of Systems: Unable To Obtain Exam - Exam Exam: See Below - Vital Signs Vital Signs: Last Vital Signs Temp 96.4 F 01/18/19 14:52 Pulse 79 01/18/19 16:28 Resp 12 01/18/19 14:52 BP 146/77 H 01/18/19 14:52 Pulse Ox 95 01/18/19 16:41 Weight: 213 lb 9.6 oz - Exam Quality Assessment: Supplemental Oxygen General: Lethargic. No: Mild Distress HEENT: Conjunctiva Clear, Mucosa Moist & [place] Neck: Supple, Trachea Midline Lungs: Normal Respiratory Effort, Rhonchi Cardiovascular: Regular Rate, Regular Rhythm GI/Abdominal Exam: Normal Bowel Sounds, Soft, Non-Tender, No Organomegaly, No Distention Extremities: Normal Inspection, No Pedal Edema Skin: Warm, Dry, Intact Neuro Extensive - Mental Status: Alert Neuro Extensive - Motor, Sensory, Reflexes: CN II-XII Intact - Patient Data Lab Results Last 24 hrs: Laboratory Results - last 24 hr 01/18/19 01/18/19 01/18/19 Range/Units 07:57 07:57 08:10 WBC 7.93 (3.98-10.04) K/mm3 RBC 5.88 H (3.98-5.22) M/mm3 Hgb 17.3 H (11.2-15.7) gm/L Hct 55.0 H (34.1-44.9) % MCV 93.5 (79.4-94.8) fl MCH 29.4 (25.6-32.2) pg MCHC 31.5 L (32.2-35.5) g/dl RDW Std Deviation 54.5 H (36.4-46.3) fL Plt Count 134 L D (182-369) K/mm3 MPV 11.0 (9.4-12.3) fl Neut % (Auto) 80.1 H (34.0-71.1) % Lymph % (Auto) 13.0 L (19.3-51.7) % [place] % (Auto) 6.4 (4.7-12.5) % Eos % (Auto) 0 L (0.7-5.8) Baso % (Auto) 0.1 (0.1-1.2) % Neut # (Auto) 6.35 H (1.56-6.13) K/mm3 Lymph # (Auto) 1.03 L (1.18-3.74) K/mm3 [place] # (Auto) 0.51 H (0.24-0.36) K/mm3 Eos # (Auto) 0.00 L (0.04-0.36) K/mm3 Baso # (Auto) 0.01 (0.01-0.08) K/mm3 Sodium 143 (136-145) mEq/L Potassium 4.9 (3.5-5.1) mEq/L Chloride 104 (98-107) mEq/L Carbon Dioxide 33 H (21-32) mEq/L Anion Gap 10.9 (5-15) BUN 14 (7-18) mg/dL Creatinine 0.8 (0.55-1.02) mg/dL Est Cr Clr Drug Dosing 83.04 mL/min Estimated GFR (MDRD) > 60 (>60) mL/min BUN/Creatinine Ratio 17.5 (14-18) Glucose 139 H (74-106) mg/dL Lactic Acid 0.8 (0.4-2.0) mmol/L Calcium 8.8 (8.5-10.1) mg/dL Total Bilirubin 0.5 (0.2-1.0) mg/dL AST 14 L (15-37) U/L ALT 23 (14-59) U/L Alkaline Phosphatase 154 H (46-116) U/L Total Protein 7.5 (6.4-8.2) g/dl Albumin 3.2 L (3.4-5.0) g/dl Globulin 4.3 gm/dL Albumin/Globulin Ratio 0.7 L (1-2) Urine Color (Yellow) Urine Appearance (Clear) Urine pH (5.0-8.0) Ur Specific [place] (1.005-1.030) Urine Protein (Negative) Urine Glucose (UA) (Negative) Urine Ketones (Negative) Urine Occult Blood (Negative) Urine Nitrite (Negative) Urine Bilirubin (Negative) Urine Urobilinogen (0.2-1.0) Ur Leukocyte Esterase (Negative) Urine RBC (0-5) /hpf Urine WBC (0-5) /hpf Urine WBC Clumps (NOT SEEN) /hpf Ur Squamous Epith Cells (0-5) /hpf Urine Bacteria (FEW) /hpf Urine Mucus (FEW) /hpf Urine Opiates Screen (LTQCUD=684) Ur Buprenorphine Scrn (CUTOFF=10) Ur Oxycodone Screen (OYD1NJ=362) Urine Methadone Screen (OZJBYG=180) Ur Propoxyphene Screen (CVKRNE=302) Ur Barbiturates Screen (YFANGN=599) Ur Tricyclics Screen (ZJKMXS=546) Ur Phencyclidine Scrn (CUTOFF=25) Ur Amphetamine Screen (TBHZWE=429) U Methamphetamines Scrn (XTOHVJ=191) U Benzodiazepines Scrn (ZAOZBW=066) U Cocaine Metab Screen (YAZROH=129) U Marijuana (THC) Screen (CUTOFF=50) 01/18/19 01/18/19 Range/Units 09:40 09:40 WBC (3.98-10.04) K/mm3 RBC (3.98-5.22) M/mm3 Hgb (11.2-15.7) gm/L Hct (34.1-44.9) % MCV (79.4-94.8) fl MCH (25.6-32.2) pg MCHC (32.2-35.5) g/dl RDW Std Deviation (36.4-46.3) fL Plt Count (182-369) K/mm3 MPV (9.4-12.3) fl Neut % (Auto) (34.0-71.1) % Lymph % (Auto) (19.3-51.7) % [place] % (Auto) (4.7-12.5) % Eos % (Auto) (0.7-5.8) Baso % (Auto) (0.1-1.2) % Neut # (Auto) (1.56-6.13) K/mm3 Lymph # (Auto) (1.18-3.74) K/mm3 [place] # (Auto) (0.24-0.36) K/mm3 Eos # (Auto) (0.04-0.36) K/mm3 Baso # (Auto) (0.01-0.08) K/mm3 Sodium (136-145) mEq/L Potassium (3.5-5.1) mEq/L Chloride (98-107) mEq/L Carbon Dioxide (21-32) mEq/L Anion Gap (5-15) BUN (7-18) mg/dL Creatinine (0.55-1.02) mg/dL Est Cr Clr Drug Dosing mL/min Estimated GFR (MDRD) (>60) mL/min BUN/Creatinine Ratio (14-18) Glucose (74-106) mg/dL Lactic Acid (0.4-2.0) mmol/L Calcium (8.5-10.1) mg/dL Total Bilirubin (0.2-1.0) mg/dL AST (15-37) U/L ALT (14-59) U/L Alkaline Phosphatase (46-116) U/L Total Protein (6.4-8.2) g/dl Albumin (3.4-5.0) g/dl Globulin gm/dL Albumin/Globulin Ratio (1-2) Urine Color Yellow (Yellow) Urine Appearance Cloudy H (Clear) Urine pH 5.5 (5.0-8.0) Ur Specific [place] 1.020 (1.005-1.030) Urine Protein Trace H (Negative) Urine Glucose (UA) Negative (Negative) Urine Ketones Negative (Negative) Urine Occult Blood 2+ H (Negative) Urine Nitrite Positive H (Negative) Urine Bilirubin Negative (Negative) Urine Urobilinogen 0.2 (0.2-1.0) Ur Leukocyte Esterase 2+ H (Negative) Urine RBC 0-5 (0-5) /hpf Urine WBC 10-20 H (0-5) /hpf Urine WBC Clumps Few (NOT SEEN) /hpf Ur Squamous Epith Cells 0-5 (0-5) /hpf Urine Bacteria Moderate H (FEW) /hpf Urine Mucus Few (FEW) /hpf Urine Opiates Screen Presumptive positive H (AKZHVG=498) Ur Buprenorphine Scrn Negative (CUTOFF=10) Ur Oxycodone Screen Negative (FJV1RI=332) Urine Methadone Screen Negative (FUAEVC=485) Ur Propoxyphene Screen Negative (HCLMCH=050) Ur Barbiturates Screen Negative (HDMSHZ=542) Ur Tricyclics Screen Negative (MMBSXK=153) Ur Phencyclidine Scrn Negative (CUTOFF=25) Ur Amphetamine Screen Negative (ILJUPM=170) U Methamphetamines Scrn Negative (RTRRNJ=978) U Benzodiazepines Scrn Presumptive positive H (MSWKXQ=981) U Cocaine Metab Screen Negative (MHHRHD=809) U Marijuana (THC) Screen Negative (CUTOFF=50) Result Diagrams: 01/18/19 07:57 01/18/19 07:57 - Problem List (1) Bacteriuria SNOMED Code(s): 72339483 ICD Code: R82.71 - BACTERIURIA Status: Acute Current Visit: Yes (2) Hypoxia SNOMED Code(s): 495139738 ICD Code: R09.02 - HYPOXEMIA Status: Acute Current Visit: Yes (3) Reactive airway disease SNOMED Code(s): 993182515894 ICD Code: J45.909 - UNSPECIFIED ASTHMA, UNCOMPLICATED Status: Acute Current Visit: Yes Qualifiers: Asthma severity: moderate Asthma persistence: persistent Asthma complication type: with acute exacerbation Qualified Code(s): J45.41 - Moderate persistent asthma with (acute) exacerbation (4) Suprapubic catheter SNOMED Code(s): 290398707, 901007231 ICD Code: Z93.59 - OTHER CYSTOSTOMY STATUS Status: Acute Priority: High Current Visit: No Problem List Initiated/Reviewed/Updated: Yes Orders Last 24hrs: Active Orders 24 hr Category Date Time Status Patient Status [ADT] Routine ADT 01/18/19 13:28 Active Oxygen Therapy [RC] PRN Care 01/18/19 08:12 Active Oxygen Therapy [RC] PRN Care 01/18/19 16:06 Active Pulse Oximetry [RC] CONTINUOUS Care 01/18/19 08:12 Active RT Aerosol Therapy [RC] ASDIRECTED Care 01/18/19 12:44 Active VTE/DVT Education [RC] PER UNIT ROUTINE Care 01/18/19 16:06 Active Vital Signs [RC] Q4H Care 01/18/19 16:06 Active Respiratory Care Assess and Treatment [CONS] Routine Cons 01/18/19 16:06 Active Regular Diet [DIET] Diet 01/18/19 Dinner Active Chest 1V Frontal [CR] AM Exams 01/19/19 05:11 Ordered C-REACTIVE PROTEIN [CHEM] AM Lab 01/19/19 05:11 Ordered CBC WITH AUTO DIFF [HEME] AM Lab 01/19/19 05:11 Ordered COMPREHENSIVE METABOLIC PN,CMP [CHEM] AM Lab 01/19/19 05:11 Ordered CULTURE BLOOD [BC] Stat Lab 01/18/19 07:57 Received CULTURE BLOOD [BC] Stat Lab 01/18/19 08:10 Received CULTURE URINE [RM] Stat Lab 01/18/19 10:45 Received MAGNESIUM [CHEM] AM Lab 01/19/19 05:11 Ordered Acetaminophen [Tylenol] Med 01/18/19 17:16 Ordered 650 mg PO Q4H PRN Albuterol/Ipratropium [DuoNeb 3.0-0.5 MG/3 ML] Med 01/18/19 16:30 Active 3 ml NEB Q6HRRT Ampicillin/Sulbactam Na [Unasyn] 3 gm Med 01/18/19 17:00 Active Sodium Chloride 0.9% [Normal Saline] 100 ml IV Q6H Baclofen [Baclofen] Med 01/18/19 21:00 Ordered 20 mg PO QID DULoxetine HCl Med 01/19/19 09:00 Ordered 60 mg PO DAILY Enoxaparin [Lovenox] Med 01/19/19 09:00 Active 40 mg SUBCUT DAILY Levothyroxine Med 01/19/19 06:00 Ordered 150 mcg PO ACBREAKFAST Magnesium Citrate [Citrate of Magnesia] Med 01/18/19 17:16 Ordered 150 ml PO BID PRN Melatonin [Melatonin] Med 01/18/19 21:00 Ordered 10 mg PO BEDTIME Polyethylene Glycol 3350 [MiraLAX] Med 01/18/19 17:16 Ordered 17 gm PO DAILY PRN Pregabalin [Lyrica] Med 01/18/19 21:00 Ordered 150 mg PO TID Sodium Chloride 0.9% [Saline Flush] Med 01/18/19 08:11 Active 10 ml FLUSH ASDIRECTED PRN guaiFENesin [Mucinex] Med 01/18/19 17:16 Ordered 600 mg PO BID PRN methylPREDNISolone Sod Succ [Solu-MEDROL] Med 01/18/19 19:00 Active 40 mg IVPUSH Q6H Blood Culture x2 Reflex Set [OM.PC] Stat Oth 01/18/19 08:11 Ordered Peripheral IV Insertion Adult [OM.PC] Stat Oth 01/18/19 08:11 Ordered Resuscitation Status Routine Resus Stat 01/18/19 14:51 Ordered Medication Orders Acetaminophen (Tylenol) 650 mg PO Q4H PRN PRN Reason: Pain Albuterol/Ipratropium (Duoneb 3.0-0.5 Mg/3 Ml) 3 ml NEB Q6HRRT [facility] Last Admin: 01/18/19 16:41 Dose: 3 ml Enoxaparin Sodium (Lovenox) 40 mg SUBCUT DAILY [facility] Guaifenesin (Mucinex) 600 mg PO BID PRN PRN Reason: Congestion Ampicillin Sodium/Sulbactam (Sodium 3 gm/ Sodium Chloride) 100 mls @ 200 mls/ hr IV Q6H [facility] Levothyroxine Sodium (Levothyroxine) 150 mcg PO ACBREAKFAST [facility] Magnesium Citrate (Citrate Of Magnesia) 150 ml PO BID PRN PRN Reason: Constipation Methylprednisolone Sodium Succinate (Solu-Medrol) 40 mg IVPUSH Q6H [facility] Non-Formulary Medication (Baclofen [Baclofen]) 20 mg PO QID [facility] Non-Formulary Medication (Duloxetine Hcl) 60 mg PO DAILY [facility] Non-Formulary Medication (Melatonin [Melatonin]) 10 mg PO BEDTIME [facility] Non-Formulary Medication (Pregabalin [Lyrica]) 150 mg PO TID [facility] Polyethylene Glycol (Miralax) 17 gm PO DAILY PRN PRN Reason: Constipation Sodium Chloride (Saline Flush) 10 ml FLUSH ASDIRECTED PRN PRN Reason: Keep Vein Open Last Admin: 01/18/19 08:21 Dose: 10 ml Assessment/Plan Comment:: acute exacerbation of asthma with hypoxemia * Patient was started on Unasyn in the emergency room and we'll continue on that. * Continue Solu-Medrol IV * DuoNeb every 4 hours * Albuterol nebulizer every 2 hours when necessary * CBC and CMP in the morning * Pulse ox to keep oxygen above 92%. asymptomatic bacteriuria secondary to indwelling catheter * Patient has an indwelling catheter and will always have bacteria. She is afebrile with a normal white count. I would not recommend treating this regularly. paraplegia with chronic back pain * Continue home meds and follow closely for side effects * Patient is on multiple medications secondary to the above conditions. patient is a full code Prognosis is good for the short-term, but guarded long-term due to her multiple medical problems. VTE prophylaxis with Lovenox 40 mg daily
[2019-01-18] MEDS ORDERED: HYDROmorphone 2 MG Tab PO PRN (17:22)
[2019-01-18] MEDS: Ampicillin/Sulbactam Na 3 GM in Sodium Chloride 0.9% 100 ML IV SCH (17:41)
[2019-01-18] MEDS: methylPREDNISolone Sodium Succinate 40 MG/1 ML SDV IVPUSH SCH (18:40)
[2019-01-18] MEDS: LORazepam 0.5 MG Tab PO SCH (20:28)
[2019-01-18] MEDS: Pregabalin 75 MG Cap PO SCH (20:28)
[2019-01-18] MEDS: Baclofen 10 MG Tab PO SCH (20:28)
[2019-01-19] MEDS: Melatonin 3 MG Tab PO SCH ×2 (00:11→20:31)
[2019-01-19] MEDS: methylPREDNISolone Sodium Succinate 40 MG/1 ML SDV IVPUSH SCH ×4 (00:11→18:28)
[2019-01-19] MEDS: Ampicillin/Sulbactam Na 3 GM in Sodium Chloride 0.9% 100 ML IV SCH ×5 (00:13→22:41)
[2019-01-19] MEDS: Albuterol/Ipratropium 3.0-0.5 MG/3 ML Neb Soln NEB SCH ×4 (02:43→20:11)
[2019-01-19] MEDS: Levothyroxine 150 MCG Tab PO SCH (06:02)
[2019-01-19] MEDS: Pregabalin 75 MG Cap PO SCH ×3 (08:24→20:33)
[2019-01-19] MEDS: Baclofen 10 MG Tab PO SCH ×4 (08:25→20:31)
[2019-01-19] MEDS: DULoxetine 30 MG Cap PO SCH (08:25)
[2019-01-19] MEDS: Enoxaparin 40 MG/0.4 ML Syringe SUBCUT SCH (08:31)
--- NOTE | 2019-01-19 09:21 | CR ---
Chest: Portable view of the chest was obtained. Comparison: Prior chest x-ray of 01/18/19. Heart size and mediastinum are normal. Increased parenchymal density is seen within the right lung base which is an interval change from previous study. Minimal atelectasis is also noted within the left base. Upper lungs are clear. Bony structures are grossly intact. Impression: 1. Increased density within the right lung base which is an interval change from previous study. Findings may represent an area of pneumonia as well as change from aspiration. 2. Mild left basilar atelectasis is also noted. Diagnostic code #3
[2019-01-19] MEDS: Acetaminophen 325 MG Tab PO PRN (10:20)
--- NOTE | 2019-01-19 12:33 | PCM.PN ---
- General Info Date of Service: 01/19/19 Admission Dx/Problem (Free Text): Admission Diagnosis/Problem Admission Diagnosis/Problem Hypoxia Subjective Update: patient has no complaints this morning. She is afebrile. Chest x-ray done this morning did demonstrate right lower lobe infiltrate which was not there yesterday. White count has increased from 7000 9000 likely secondary to steroids. - Review of Systems General: Reports: No Symptoms HEENT: Reports: No Symptoms Pulmonary: Reports: No Symptoms. Denies: Shortness of Breath Cardiovascular: Reports: No Symptoms. Denies: Chest Pain, Dyspnea on Exertion Gastrointestinal: Reports: No Symptoms - Patient Data Vitals - Most Recent: Last Vital Signs Temp 97.7 F 01/19/19 08:23 Pulse 70 01/19/19 08:23 Resp 18 01/19/19 08:23 BP 124/76 01/19/19 08:23 Pulse Ox 97 01/19/19 10:36 Weight - Most Recent: 212 lb 5 oz I&O - Last 24 Hours: Intake & Output 01/18/19 01/19/19 01/19/19 22:59 06:59 14:59 Intake Total 100 300 Output Total 2000 Balance 100 -1700 Lab Results Last 24 Hours: Laboratory Results - last 24 hr 01/19/19 01/19/19 Range/Units 06:00 06:00 WBC 9.03 (3.98-10.04) K/mm3 RBC 5.64 H (3.98-5.22) M/mm3 Hgb 16.1 H (11.2-15.7) gm/L Hct 52.3 H (34.1-44.9) % MCV 92.7 (79.4-94.8) fl MCH 28.5 (25.6-32.2) pg MCHC 30.8 L (32.2-35.5) g/dl RDW Std Deviation 51.2 H (36.4-46.3) fL Plt Count 146 L (182-369) K/mm3 MPV 10.6 (9.4-12.3) fl Neut % (Auto) 90.8 H (34.0-71.1) % Lymph % (Auto) 6.5 L (19.3-51.7) % [place] % (Auto) 2.1 L (4.7-12.5) % Eos % (Auto) 0 L (0.7-5.8) Baso % (Auto) 0.0 L (0.1-1.2) % Neut # (Auto) 8.20 H (1.56-6.13) K/mm3 Lymph # (Auto) 0.59 L (1.18-3.74) K/mm3 [place] # (Auto) 0.19 L (0.24-0.36) K/mm3 Eos # (Auto) 0.00 L (0.04-0.36) K/mm3 Baso # (Auto) 0.00 L (0.01-0.08) K/mm3 Manual Slide Review Abnormal smear Sodium 142 (136-145) mEq/L Potassium 4.7 (3.5-5.1) mEq/L Chloride 103 (98-107) mEq/L Carbon Dioxide 32 (21-32) mEq/L Anion Gap 11.7 (5-15) BUN 15 (7-18) mg/dL Creatinine 0.7 (0.55-1.02) mg/dL Est Cr Clr Drug Dosing 88.30 mL/min Estimated GFR (MDRD) > 60 (>60) mL/min BUN/Creatinine Ratio 21.4 H (14-18) Glucose 136 H (74-106) mg/dL Calcium 9.2 (8.5-10.1) mg/dL Magnesium 1.8 (1.8-2.4) mg/dl Total Bilirubin 0.4 (0.2-1.0) mg/dL AST 13 L (15-37) U/L ALT 16 (14-59) U/L Alkaline Phosphatase 142 H (46-116) U/L C-Reactive Protein 7.4 H* (<1.0) mg/dL Total Protein 7.2 (6.4-8.2) g/dl Albumin 2.9 L (3.4-5.0) g/dl Globulin 4.3 gm/dL Albumin/Globulin Ratio 0.7 L (1-2) Bishnu Results Last 24 Hours: Microbiology 01/18/19 08:10 Aerobic Blood Culture - Preliminary Blood - Venous - Lab Draw NO GROWTH AFTER 1 DAY Anaerobic Blood Culture - Preliminary NO GROWTH AFTER 1 DAY 01/18/19 07:57 Aerobic Blood Culture - Preliminary Blood - Venous NO GROWTH AFTER 1 DAY Anaerobic Blood Culture - Preliminary NO GROWTH AFTER 1 DAY 01/18/19 10:45 Urine Culture - Preliminary Urine, Dixon Cath (Indwelling) Gram Negative Rods Med Orders - Current: Current Medications Acetaminophen (Tylenol) 650 mg PO Q4H PRN PRN Reason: Pain Last Admin: 01/19/19 10:20 Dose: 650 mg Albuterol/Ipratropium (Duoneb 3.0-0.5 Mg/3 Ml) 3 ml NEB Q6HRRT [facility] Last Admin: 01/19/19 08:52 Dose: 3 ml Baclofen (Lioresal) 20 mg PO QID [facility] Last Admin: 01/19/19 08:25 Dose: 20 mg Duloxetine HCl (Cymbalta) 60 mg PO DAILY [facility] Last Admin: 01/19/19 08:25 Dose: 60 mg Enoxaparin Sodium (Lovenox) 40 mg SUBCUT DAILY [facility] Last Admin: 01/19/19 08:31 Dose: 40 mg Guaifenesin (Mucinex) 600 mg PO BID PRN PRN Reason: Congestion Hydromorphone HCl (Dilaudid) 1 mg PO Q12H PRN PRN Reason: Pain Last Admin: 01/19/19 10:33 Dose: 1 mg Ampicillin Sodium/Sulbactam (Sodium 3 gm/ Sodium Chloride) 100 mls @ 200 mls/ hr IV Q6H [facility] Last Admin: 01/19/19 10:26 Dose: 200 mls/hr Levothyroxine Sodium (Levothyroxine) 150 mcg PO ACBREAKFAST [facility] Last Admin: 01/19/19 06:02 Dose: 150 mcg Lorazepam (Ativan) 0.5 mg PO BEDTIME [facility] Last Admin: 01/18/19 20:28 Dose: 0.5 mg Magnesium Citrate (Citrate Of Magnesia) 150 ml PO BID PRN PRN Reason: Constipation Melatonin (Melatonin) 9 mg PO BEDTIME [facility] Last Admin: 01/19/19 00:11 Dose: 9 mg Methylprednisolone Sodium Succinate (Solu-Medrol) 40 mg IVPUSH Q6H [facility] Last Admin: 01/19/19 06:02 Dose: 40 mg Polyethylene Glycol (Miralax) 17 gm PO DAILY PRN PRN Reason: Constipation Pregabalin (Lyrica) 150 mg PO TID [facility] Last Admin: 01/19/19 08:24 Dose: 150 mg Sodium Chloride (Saline Flush) 10 ml FLUSH ASDIRECTED PRN PRN Reason: Keep Vein Open Last Admin: 01/18/19 08:21 Dose: 10 ml Discontinued Medications Albuterol/Ipratropium (Duoneb 3.0-0.5 Mg/3 Ml) 3 ml NEB ONETIME ONE Stop: 01/18/19 11:30 Last Admin: 01/18/19 11:41 Dose: 3 ml Albuterol/Ipratropium (Duoneb 3.0-0.5 Mg/3 Ml) 3 ml NEB ONETIME ONE Stop: 01/18/19 12:45 Last Admin: 01/18/19 13:11 Dose: 3 ml Albuterol/Ipratropium (Duoneb 3.0-0.5 Mg/3 Ml) 3 ml NEB Q6H [facility] Last Admin: 01/18/19 16:25 Dose: Not Given Sodium Chloride (Normal Saline) 500 mls @ 1,000 mls/hr IV .BOLUS ONE Stop: 01/18/19 09:59 Last Admin: 01/18/19 09:40 Dose: 1,000 mls/hr Ampicillin Sodium/Sulbactam (Sodium 3 gm/ Sodium Chloride) 100 mls @ 200 mls/ hr IV ONETIME ONE Stop: 01/18/19 11:33 Last Admin: 01/18/19 11:20 Dose: 200 mls/hr Methylprednisolone Sodium Succinate (Solu-Medrol) 125 mg IVPUSH ONETIME ONE Stop: 01/18/19 12:30 Last Admin: 01/18/19 13:14 Dose: 125 mg Naloxone HCl (Narcan) 2 mg IVPUSH ONETIME ONE Stop: 01/18/19 08:16 Last Admin: 01/18/19 08:17 Dose: 2 mg Ondansetron HCl (Zofran) 4 mg IVPUSH ONETIME ONE Stop: 01/18/19 08:16 Last Admin: 01/18/19 08:15 Dose: 4 mg - Exam Quality Assessment: Supplemental Oxygen General: Alert, Oriented HEENT: Pupils Equal, Pupils Reactive Neck: Supple Lungs: Clear to Auscultation, Normal Respiratory Effort Cardiovascular: Regular Rate, Regular Rhythm GI/Abdominal Exam: Normal Bowel Sounds, Soft, Non-Tender, No Organomegaly, No Mass Skin: Warm, Dry, Intact Neurological: No New Focal Deficit Psy/Mental Status: Alert, Normal Affect, Normal Mood - Problem List & Annotations (1) Bacteriuria SNOMED Code(s): 35273445 Code(s): R82.71 - BACTERIURIA Status: Acute Current Visit: Yes (2) Hypoxia SNOMED Code(s): 970636419 Code(s): R09.02 - HYPOXEMIA Status: Acute Current Visit: Yes (3) Reactive airway disease SNOMED Code(s): 118516332246 Code(s): J45.909 - UNSPECIFIED ASTHMA, UNCOMPLICATED Status: Acute Current Visit: Yes Qualifiers: Asthma severity: moderate Asthma persistence: persistent Asthma complication type: with acute exacerbation Qualified Code(s): J45.41 - Moderate persistent asthma with (acute) exacerbation (4) Suprapubic catheter SNOMED Code(s): 434125162, 927507598 Code(s): Z93.59 - OTHER CYSTOSTOMY STATUS Status: Acute Priority: High Current Visit: No (5) Pneumonia SNOMED Code(s): 947450888 Code(s): J18.9 - PNEUMONIA, UNSPECIFIED ORGANISM Status: Acute Current Visit: Yes - Problem List Review Problem List Initiated/Reviewed/Updated: Yes - My Orders Last 24 Hours: My Active Orders 01/18/19 14:51 Resuscitation Status Routine 01/18/19 16:06 VTE/DVT Education [RC] DAILY Vital Signs [RC] Q4HR Respiratory Care Assess and Treatment [CONS] Routine 01/18/19 16:30 Albuterol/Ipratropium [DuoNeb 3.0-0.5 MG/3 ML] 3 ml NEB Q6HRRT 01/18/19 17:00 Ampicillin/Sulbactam Na [Unasyn] 3 gm Sodium Chloride 0.9% [Normal Saline] 100 ml IV Q6H 01/18/19 17:16 Acetaminophen [Tylenol] 650 mg PO Q4H PRN Magnesium Citrate [Citrate of Magnesia] 150 ml PO BID PRN Polyethylene Glycol 3350 [MiraLAX] 17 gm PO DAILY PRN guaiFENesin [Mucinex] 600 mg PO BID PRN 01/18/19 17:22 HYDROmorphone [Dilaudid] 1 mg PO Q12H PRN 01/18/19 19:00 methylPREDNISolone Sod Succ [Solu-MEDROL] 40 mg IVPUSH Q6H 01/18/19 20:26 Urinary Catheter Assessment [RC] 01/18/19 21:00 Baclofen [Lioresal] 20 mg PO QID LORazepam [Ativan] 0.5 mg PO BEDTIME Melatonin 9 mg PO BEDTIME Pregabalin [Lyrica] 150 mg PO TID 01/18/19 22:00 Insert Dixon Catheter [Insert Urinary Catheter] [OM.PC] ONETIME 01/18/19 Dinner Regular Diet [DIET] 01/19/19 06:00 Levothyroxine 150 mcg PO ACBREAKFAST 01/19/19 09:00 DULoxetine [Cymbalta] 60 mg PO DAILY Enoxaparin [Lovenox] 40 mg SUBCUT DAILY 01/19/19 10:45 METH-RESIST S.AUR,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 This is not typically the first choice for empiric treatment of patient from [facility] and recently had antibiotics, but patient has been afebrile and actually improving with lowering O2 requirements over the last few hours. We will continue to follow closely before adding or changing antibiotics. * there is also some concern that this may be an aspiration pneumonia although there was no aspiration witnessed. Patient was found at the [facility] hypoxic. * Continue Solu-Medrol IV * DuoNeb every 4 hours * Albuterol nebulizer every 2 hours when necessary * CBC, C-reactive protein,and CMP in the morning * Pulse ox to keep oxygen above 92%. asymptomatic bacteriuria secondary to indwelling catheter * Patient has an indwelling catheter and will always have bacteria. She is afebrile with a normal white count. I would not recommend treating this regularly. paraplegia with chronic back pain * Continue home meds and follow closely for side effects * Patient is on multiple medications secondary to the above conditions. patient is a full code Prognosis is good for the short-term, but guarded long-term due to her multiple medical problems. VTE prophylaxis with Lovenox 40 mg daily
[2019-01-19] MEDS: LORazepam 0.5 MG Tab PO SCH (20:33)
[2019-01-20] MEDS: methylPREDNISolone Sodium Succinate 40 MG/1 ML SDV IVPUSH SCH ×2 (01:41→07:04)
[2019-01-20] MEDS: Albuterol/Ipratropium 3.0-0.5 MG/3 ML Neb Soln NEB SCH ×3 (02:50→15:15)
[2019-01-20] MEDS: Ampicillin/Sulbactam Na 3 GM in Sodium Chloride 0.9% 100 ML IV SCH ×4 (05:17→22:12)
[2019-01-20] MEDS: Levothyroxine 150 MCG Tab PO SCH (05:17)
[2019-01-20] MEDS: predniSONE 20 MG Tab PO SCH (08:58)
[2019-01-20] MEDS: Pregabalin 75 MG Cap PO SCH ×3 (08:58→20:28)
[2019-01-20] MEDS: Baclofen 10 MG Tab PO SCH ×4 (08:58→20:27)
[2019-01-20] MEDS: DULoxetine 30 MG Cap PO SCH (08:58)
[2019-01-20] MEDS: Enoxaparin 40 MG/0.4 ML Syringe SUBCUT SCH (08:58)
[2019-01-20] MEDS: oxyCODONE 5 MG Tab PO PRN ×2 (09:14→14:50)
--- NOTE | 2019-01-20 09:41 | PCM.PN ---
- General Info Date of Service: 01/20/19 Admission Dx/Problem (Free Text): Admission Diagnosis/Problem Admission Diagnosis/Problem Hypoxia Subjective Update: January 19, 2019 patient has no complaints this morning. She is afebrile. Chest x-ray done this morning did demonstrate right lower lobe infiltrate which was not there yesterday. White count has increased from 7000 9000 likely secondary to steroids. January 20, 2019 Patient continues to improve. She is on less oxygen, 2 L/m nasal cannula. She does state her pain is still 10 out of 10. After discussing what caused her admission it appears that she did receive Dilaudid a little after 2:00 in the morning and then she was found not responding well. Patient also received a benzodiazepine a few hours before the Dilaudid. She is on multiple medications secondary to pain. White count today is 10,900 and her C-reactive protein has decreased to 3.0. She has a right lower lobe pneumonia on chest x-ray, and bacteriuria. Functional Status: Denies: Pain Controlled Pain Score: 10 - Review of Systems General: Reports: No Symptoms. Denies: Fever HEENT: Reports: No Symptoms Pulmonary: Reports: No Symptoms. Denies: Shortness of Breath, Cough Cardiovascular: Reports: No Symptoms Gastrointestinal: Reports: No Symptoms Musculoskeletal: Reports: Back Pain - Patient Data Vitals - Most Recent: Last Vital Signs Temp 98.1 F 01/20/19 05:21 Pulse 57 L 01/20/19 05:21 Resp 12 01/20/19 05:21 BP 129/75 01/20/19 05:21 Pulse Ox 94 L 01/20/19 05:21 Weight - Most Recent: 212 lb 11.2 oz I&O - Last 24 Hours: Intake & Output 01/19/19 01/20/19 01/20/19 22:59 06:59 14:59 Intake Total 840 700 Output Total 750 950 Balance 90 -250 Lab Results Last 24 Hours: Laboratory Results - last 24 hr 01/20/19 01/20/19 01/20/19 Range/Units 05:15 05:15 05:15 WBC 10.86 H (3.98-10.04) K/mm3 RBC 5.50 H (3.98-5.22) M/mm3 Hgb 15.8 H (11.2-15.7) gm/L Hct 50.3 H (34.1-44.9) % MCV 91.5 (79.4-94.8) fl MCH 28.7 (25.6-32.2) pg MCHC 31.4 L (32.2-35.5) g/dl RDW Std Deviation 50.7 H (36.4-46.3) fL Plt Count 161 L (182-369) K/mm3 MPV 11.2 (9.4-12.3) fl Neut % (Auto) 80.7 H (34.0-71.1) % Lymph % (Auto) 11.2 L (19.3-51.7) % [place] % (Auto) 7.6 (4.7-12.5) % Eos % (Auto) 0 L (0.7-5.8) Baso % (Auto) 0.0 L (0.1-1.2) % Neut # (Auto) 8.77 H (1.56-6.13) K/mm3 Lymph # (Auto) 1.22 (1.18-3.74) K/mm3 [place] # (Auto) 0.82 H (0.24-0.36) K/mm3 Eos # (Auto) 0.00 L (0.04-0.36) K/mm3 Baso # (Auto) 0.00 L (0.01-0.08) K/mm3 Sodium 144 (136-145) mEq/L Potassium 3.9 (3.5-5.1) mEq/L Chloride 104 (98-107) mEq/L Carbon Dioxide 33 H (21-32) mEq/L Anion Gap 10.9 (5-15) BUN 23 H (7-18) mg/dL Creatinine 0.9 (0.55-1.02) mg/dL Est Cr Clr Drug Dosing 68.68 mL/min Estimated GFR (MDRD) > 60 (>60) mL/min BUN/Creatinine Ratio 25.6 H (14-18) Glucose 124 H (74-106) mg/dL Calcium 9.1 (8.5-10.1) mg/dL Magnesium 1.8 (1.8-2.4) mg/dl Total Bilirubin 0.4 (0.2-1.0) mg/dL AST 11 L (15-37) U/L ALT 14 (14-59) U/L Alkaline Phosphatase 126 H (46-116) U/L C-Reactive Protein 3.0 H* (<1.0) mg/dL Total Protein 6.7 (6.4-8.2) g/dl Albumin 2.8 L (3.4-5.0) g/dl Globulin 3.9 gm/dL Albumin/Globulin Ratio 0.7 L (1-2) Bishnu Results Last 24 Hours: Microbiology 01/18/19 08:10 Aerobic Blood Culture - Preliminary Blood - Venous - Lab Draw NO GROWTH AFTER 2 DAYS Anaerobic Blood Culture - Preliminary NO GROWTH AFTER 2 DAYS 01/18/19 07:57 Aerobic Blood Culture - Preliminary Blood - Venous NO GROWTH AFTER 2 DAYS Anaerobic Blood Culture - Preliminary NO GROWTH AFTER 2 DAYS 01/18/19 10:45 Urine Culture - Preliminary Urine, Dixon Cath (Indwelling) Gram Negative Rods Med Orders - Current: Current Medications Acetaminophen (Tylenol) 650 mg PO Q4H PRN PRN Reason: Pain Last Admin: 01/19/19 10:20 Dose: 650 mg Albuterol/Ipratropium (Duoneb 3.0-0.5 Mg/3 Ml) 3 ml NEB Q6HRRT [facility] Last Admin: 01/20/19 02:50 Dose: Not Given Baclofen (Lioresal) 20 mg PO QID [facility] Last Admin: 01/20/19 08:58 Dose: 20 mg Duloxetine HCl (Cymbalta) 60 mg PO DAILY [facility] Last Admin: 01/20/19 08:58 Dose: 60 mg Enoxaparin Sodium (Lovenox) 40 mg SUBCUT DAILY [facility] Last Admin: 01/20/19 08:58 Dose: 40 mg Guaifenesin (Mucinex) 600 mg PO BID PRN PRN Reason: Congestion Ampicillin Sodium/Sulbactam (Sodium 3 gm/ Sodium Chloride) 100 mls @ 200 mls/ hr IV Q6H [facility] Last Admin: 01/20/19 05:17 Dose: 200 mls/hr Levothyroxine Sodium (Levothyroxine) 150 mcg PO ACBREAKFAST [facility] Last Admin: 01/20/19 05:17 Dose: 150 mcg Lorazepam (Ativan) 0.5 mg PO BEDTIME [facility] Last Admin: 01/19/19 20:33 Dose: 0.5 mg Magnesium Citrate (Citrate Of Magnesia) 150 ml PO BID PRN PRN Reason: Constipation Melatonin (Melatonin) 9 mg PO BEDTIME [facility] Last Admin: 01/19/19 20:31 Dose: 9 mg Oxycodone HCl (Oxycodone) 5 mg PO Q6H PRN PRN Reason: Pain Last Admin: 01/20/19 09:14 Dose: 5 mg Polyethylene Glycol (Miralax) 17 gm PO DAILY PRN PRN Reason: Constipation Prednisone (Prednisone) 40 mg PO WITHBREAKFAST [facility] Last Admin: 01/20/19 08:58 Dose: 40 mg Pregabalin (Lyrica) 150 mg PO TID [facility] Last Admin: 01/20/19 08:58 Dose: 150 mg Sodium Chloride (Saline Flush) 10 ml FLUSH ASDIRECTED PRN PRN Reason: Keep Vein Open Last Admin: 01/18/19 08:21 Dose: 10 ml Discontinued Medications Albuterol/Ipratropium (Duoneb 3.0-0.5 Mg/3 Ml) 3 ml NEB ONETIME ONE Stop: 01/18/19 11:30 Last Admin: 01/18/19 11:41 Dose: 3 ml Albuterol/Ipratropium (Duoneb 3.0-0.5 Mg/3 Ml) 3 ml NEB ONETIME ONE Stop: 01/18/19 12:45 Last Admin: 01/18/19 13:11 Dose: 3 ml Albuterol/Ipratropium (Duoneb 3.0-0.5 Mg/3 Ml) 3 ml NEB Q6H [facility] Last Admin: 01/18/19 16:25 Dose: Not Given Hydromorphone HCl (Dilaudid) 1 mg PO Q12H PRN PRN Reason: Pain Last Admin: 01/19/19 10:33 Dose: 1 mg Sodium Chloride (Normal Saline) 500 mls @ 1,000 mls/hr IV .BOLUS ONE Stop: 01/18/19 09:59 Last Admin: 01/18/19 09:40 Dose: 1,000 mls/hr Ampicillin Sodium/Sulbactam (Sodium 3 gm/ Sodium Chloride) 100 mls @ 200 mls/ hr IV ONETIME ONE Stop: 01/18/19 11:33 Last Admin: 01/18/19 11:20 Dose: 200 mls/hr Methylprednisolone Sodium Succinate (Solu-Medrol) 125 mg IVPUSH ONETIME ONE Stop: 01/18/19 12:30 Last Admin: 01/18/19 13:14 Dose: 125 mg Methylprednisolone Sodium Succinate (Solu-Medrol) 40 mg IVPUSH Q6H [facility] Last Admin: 01/20/19 07:04 Dose: 40 mg Naloxone HCl (Narcan) 2 mg IVPUSH ONETIME ONE Stop: 01/18/19 08:16 Last Admin: 01/18/19 08:17 Dose: 2 mg Ondansetron HCl (Zofran) 4 mg IVPUSH ONETIME ONE Stop: 01/18/19 08:16 Last Admin: 01/18/19 08:15 Dose: 4 mg - Exam Quality Assessment: Supplemental Oxygen General: Alert, Oriented HEENT: Pupils Equal, Pupils Reactive, Scleral Icterus Lungs: Clear to Auscultation, Normal Respiratory Effort Cardiovascular: Regular Rate, Regular Rhythm Extremities: Normal Inspection, No Pedal Edema Skin: Warm, Dry, Intact Psy/Mental Status: Alert - Problem List & Annotations (1) Bacteriuria SNOMED Code(s): 92387816 Code(s): R82.71 - BACTERIURIA Status: Acute Current Visit: Yes (2) Hypoxia SNOMED Code(s): 783555423 Code(s): R09.02 - HYPOXEMIA Status: Acute Current Visit: Yes (3) Reactive airway disease SNOMED Code(s): 422287781353 Code(s): J45.909 - UNSPECIFIED ASTHMA, UNCOMPLICATED Status: Acute Current Visit: Yes Qualifiers: Asthma severity: moderate Asthma persistence: persistent Asthma complication type: with acute exacerbation Qualified Code(s): J45.41 - Moderate persistent asthma with (acute) exacerbation (4) Suprapubic catheter SNOMED Code(s): 179844030, 593199104 Code(s): Z93.59 - OTHER CYSTOSTOMY STATUS Status: Acute Priority: High Current Visit: No (5) Pneumonia SNOMED Code(s): 284223508 Code(s): J18.9 - PNEUMONIA, UNSPECIFIED ORGANISM Status: Acute Current Visit: Yes - Problem List Review Problem List Initiated/Reviewed/Updated: Yes - My Orders Last 24 Hours: My Active Orders 01/19/19 09:00 DULoxetine [Cymbalta] 60 mg PO DAILY Enoxaparin [Lovenox] 40 mg SUBCUT DAILY 01/20/19 08:56 oxyCODONE 5 mg PO Q6H PRN 01/20/19 09:00 predniSONE 40 mg PO WITHBREAKFAST 01/21/19 05:11 BASIC METABOLIC PANEL,BMP [CHEM] AM C-REACTIVE PROTEIN [CHEM] AM CBC WITH AUTO DIFF [HEME] AM MAGNESIUM [CHEM] AM - Plan Plan:: pneumonia with acute exacerbation of asthma with hypoxemia * Patient was started on Unasyn in the emergency room. This is not typically the first choice for [facility] and recently had antibiotics, but patient has been afebrile and actually improving with lowering O2 requirements and lowering C-reactive protein. We will continue to follow closely before adding or changing antibiotics. * there is also some concern that this may be an aspiration pneumonia although there was no aspiration witnessed. [facility] a couple hours after receiving Dilaudid by mouth.. * Switch to prednisone 40 mg daily * DuoNeb every 4 hours * Albuterol nebulizer every 2 hours when necessary * CBC, C-reactive protein,and CMP in the morning * Pulse ox to keep oxygen above 92%. Currently on 2 L nasal cannula asymptomatic bacteriuria secondary to indwelling catheter * Patient has an indwelling catheter and will always have bacteria. She is afebrile with a normal white count. I would not recommend treating this regularly. paraplegia with chronic back pain * Switch Dilaudid to oxycodone 5 mg every 6 when necessary while in the hospital and see if this improves her pain. * Patient is on multiple medications secondary to the above conditions. patient is a full code Prognosis is good for the short-term, but guarded long-term due to her multiple medical problems. VTE prophylaxis with Lovenox 40 mg daily
[2019-01-20] MEDS ORDERED: Albuterol/Ipratropium 3.0-0.5 MG/3 ML Neb Soln NEB PRN (19:00)
[2019-01-20] MEDS: Melatonin 3 MG Tab PO SCH (20:27)
[2019-01-20] MEDS: LORazepam 0.5 MG Tab PO SCH (20:28)
[2019-01-21] MEDS: Levothyroxine 150 MCG Tab PO SCH (05:48)
[2019-01-21] MEDS: predniSONE 20 MG Tab PO SCH ×2 (05:51→06:40)
[2019-01-21] MEDS ORDERED: Ampicillin/Sulbactam Na 3 GM in Sodium Chloride 0.9% 100 ML IV SCH (06:15)
[2019-01-21] MEDS: Ampicillin/Sulbactam Na 3 GM in Sodium Chloride 0.9% 100 ML IV SCH ×4 (06:26→23:01)
[2019-01-21] MEDS: Pregabalin 75 MG Cap PO SCH ×3 (09:43→20:22)
[2019-01-21] MEDS: DULoxetine 30 MG Cap PO SCH (09:44)
[2019-01-21] MEDS: Baclofen 10 MG Tab PO SCH ×4 (09:44→20:23)
[2019-01-21] MEDS: Enoxaparin 40 MG/0.4 ML Syringe SUBCUT SCH (09:44)
--- NOTE | 2019-01-21 11:00 | PCM.PN ---
- General Info Date of Service: 01/21/19 Admission Dx/Problem (Free Text): Admission Diagnosis/Problem Admission Diagnosis/Problem Hypoxia Subjective Update: January 19, 2019 patient has no complaints this morning. She is afebrile. Chest x-ray done this morning did demonstrate right lower lobe infiltrate which was not there yesterday. White count has increased from 7000 9000 likely secondary to steroids. January 20, 2019 Patient continues to improve. She is on less oxygen, 2 L/m nasal cannula. She does state her pain is still 10 out of 10. After discussing what caused her admission it appears that she did receive Dilaudid a little after 2:00 in the morning and then she was found not responding well. Patient also received a benzodiazepine a few hours before the Dilaudid. She is on multiple medications secondary to pain. White count today is 10,900 and her C-reactive protein has decreased to 3.0. She has a right lower lobe pneumonia on chest x-ray, and bacteriuria. January 21, 2019 Patient was afebrile overnight. She states that she is feeling better and oxycodone helped her pain. We stopped her Dilaudid yesterday because of concerns of it causing oversedation on the morning of admission. - Review of Systems General: Reports: No Symptoms. Denies: Fever HEENT: Reports: No Symptoms Pulmonary: Reports: No Symptoms. Denies: Shortness of Breath Cardiovascular: Reports: No Symptoms Gastrointestinal: Reports: No Symptoms - Patient Data Vitals - Most Recent: Last Vital Signs Temp 98.6 F 01/21/19 08:11 Pulse 64 01/21/19 08:11 Resp 16 01/21/19 08:11 BP 139/76 01/21/19 08:11 Pulse Ox 88 L 01/21/19 08:11 Weight - Most Recent: 212 lb I&O - Last 24 Hours: Intake & Output 01/20/19 01/21/19 01/21/19 22:59 06:59 14:59 Intake Total 870 1000 Output Total 750 1850 Balance 120 -850 Lab Results Last 24 Hours: Laboratory Results - last 24 hr 01/21/19 01/21/19 Range/Units 04:58 04:58 WBC 7.56 (3.98-10.04) K/mm3 RBC 5.76 H (3.98-5.22) M/mm3 Hgb 16.5 H (11.2-15.7) gm/L Hct 52.7 H (34.1-44.9) % MCV 91.5 (79.4-94.8) fl MCH 28.6 (25.6-32.2) pg MCHC 31.3 L (32.2-35.5) g/dl RDW Std Deviation 51.2 H (36.4-46.3) fL Plt Count 137 L (182-369) K/mm3 MPV 11.0 (9.4-12.3) fl Neut % (Auto) 57.7 (34.0-71.1) % Lymph % (Auto) 31.0 (19.3-51.7) % [place] % (Auto) 10.1 (4.7-12.5) % Eos % (Auto) 0.4 L (0.7-5.8) Baso % (Auto) 0.1 (0.1-1.2) % Neut # (Auto) 4.37 (1.56-6.13) K/mm3 Lymph # (Auto) 2.34 (1.18-3.74) K/mm3 [place] # (Auto) 0.76 H (0.24-0.36) K/mm3 Eos # (Auto) 0.03 L (0.04-0.36) K/mm3 Baso # (Auto) 0.01 (0.01-0.08) K/mm3 Sodium 145 (136-145) mEq/L Potassium 3.8 (3.5-5.1) mEq/L Chloride 104 (98-107) mEq/L Carbon Dioxide 34 H (21-32) mEq/L Anion Gap 10.8 (5-15) BUN 24 H (7-18) mg/dL Creatinine 0.9 (0.55-1.02) mg/dL Est Cr Clr Drug Dosing 68.68 mL/min Estimated GFR (MDRD) > 60 (>60) mL/min BUN/Creatinine Ratio 26.7 H (14-18) Glucose 87 (74-106) mg/dL Calcium 8.8 (8.5-10.1) mg/dL Magnesium 1.8 (1.8-2.4) mg/dl C-Reactive Protein 1.5 H* (<1.0) mg/dL Bishnu Results Last 24 Hours: Microbiology 01/18/19 08:10 Aerobic Blood Culture - Preliminary Blood - Venous - Lab Draw NO GROWTH AFTER 3 DAYS Anaerobic Blood Culture - Preliminary NO GROWTH AFTER 3 DAYS 01/18/19 07:57 Aerobic Blood Culture - Preliminary Blood - Venous NO GROWTH AFTER 3 DAYS Anaerobic Blood Culture - Preliminary NO GROWTH AFTER 3 DAYS 01/18/19 10:45 Urine Culture - Preliminary Urine, Dixon Cath (Indwelling) Gram Negative Rods Gram Positive Coccobacillus Med Orders - Current: Current Medications Acetaminophen (Tylenol) 650 mg PO Q4H PRN PRN Reason: Pain Last Admin: 01/19/19 10:20 Dose: 650 mg Albuterol/Ipratropium (Duoneb 3.0-0.5 Mg/3 Ml) 3 ml NEB Q6H PRN PRN Reason: SOB/Wheezing Baclofen (Lioresal) 20 mg PO QID [facility] Last Admin: 01/21/19 09:44 Dose: 20 mg Duloxetine HCl (Cymbalta) 60 mg PO DAILY [facility] Last Admin: 01/21/19 09:44 Dose: 60 mg Enoxaparin Sodium (Lovenox) 40 mg SUBCUT DAILY [facility] Last Admin: 01/21/19 09:44 Dose: 40 mg Guaifenesin (Mucinex) 600 mg PO BID PRN PRN Reason: Congestion Ampicillin Sodium/Sulbactam (Sodium 3 gm/ Sodium Chloride) 100 mls @ 200 mls/ hr IV Q6H [facility] Last Admin: 01/21/19 06:28 Dose: 200 mls/hr Levothyroxine Sodium (Levothyroxine) 150 mcg PO ACBREAKFAST [facility] Last Admin: 01/21/19 05:48 Dose: 150 mcg Lorazepam (Ativan) 0.5 mg PO BEDTIME [facility] Last Admin: 01/20/19 20:28 Dose: 0.5 mg Magnesium Citrate (Citrate Of Magnesia) 150 ml PO BID PRN PRN Reason: Constipation Melatonin (Melatonin) 9 mg PO BEDTIME [facility] Last Admin: 01/20/19 20:27 Dose: 9 mg Oxycodone HCl (Oxycodone) 5 mg PO Q6H PRN PRN Reason: Pain Last Admin: 01/20/19 14:50 Dose: 5 mg Polyethylene Glycol (Miralax) 17 gm PO DAILY PRN PRN Reason: Constipation Prednisone (Prednisone) 40 mg PO WITHBREAKFAST [facility] Last Admin: 01/21/19 06:40 Dose: Not Given Pregabalin (Lyrica) 150 mg PO TID [facility] Last Admin: 01/21/19 09:43 Dose: 150 mg Sodium Chloride (Saline Flush) 10 ml FLUSH ASDIRECTED PRN PRN Reason: Keep Vein Open Last Admin: 01/18/19 08:21 Dose: 10 ml Discontinued Medications Albuterol/Ipratropium (Duoneb 3.0-0.5 Mg/3 Ml) 3 ml NEB ONETIME ONE Stop: 01/18/19 11:30 Last Admin: 01/18/19 11:41 Dose: 3 ml Albuterol/Ipratropium (Duoneb 3.0-0.5 Mg/3 Ml) 3 ml NEB ONETIME ONE Stop: 01/18/19 12:45 Last Admin: 01/18/19 13:11 Dose: 3 ml Albuterol/Ipratropium (Duoneb 3.0-0.5 Mg/3 Ml) 3 ml NEB Q6H [facility] Last Admin: 01/18/19 16:25 Dose: Not Given Albuterol/Ipratropium (Duoneb 3.0-0.5 Mg/3 Ml) 3 ml NEB Q6HRRT [facility] Last Admin: 01/20/19 15:15 Dose: Not Given Hydromorphone HCl (Dilaudid) 1 mg PO Q12H PRN PRN Reason: Pain Last Admin: 01/19/19 10:33 Dose: 1 mg Sodium Chloride (Normal Saline) 500 mls @ 1,000 mls/hr IV .BOLUS ONE Stop: 01/18/19 09:59 Last Admin: 01/18/19 09:40 Dose: 1,000 mls/hr Ampicillin Sodium/Sulbactam (Sodium 3 gm/ Sodium Chloride) 100 mls @ 200 mls/ hr IV ONETIME ONE Stop: 01/18/19 11:33 Last Admin: 01/18/19 11:20 Dose: 200 mls/hr Ampicillin Sodium/Sulbactam (Sodium 3 gm/ Sodium Chloride) 100 mls @ 200 mls/ hr IV Q6H [facility] Last Admin: 01/21/19 06:26 Dose: Not Given Methylprednisolone Sodium Succinate (Solu-Medrol) 125 mg IVPUSH ONETIME ONE Stop: 01/18/19 12:30 Last Admin: 01/18/19 13:14 Dose: 125 mg Methylprednisolone Sodium Succinate (Solu-Medrol) 40 mg IVPUSH Q6H [facility] Last Admin: 01/20/19 07:04 Dose: 40 mg Naloxone HCl (Narcan) 2 mg IVPUSH ONETIME ONE Stop: 01/18/19 08:16 Last Admin: 01/18/19 08:17 Dose: 2 mg Ondansetron HCl (Zofran) 4 mg IVPUSH ONETIME ONE Stop: 01/18/19 08:16 Last Admin: 01/18/19 08:15 Dose: 4 mg - Exam Quality Assessment: Supplemental Oxygen General: Alert, Oriented, No Acute Distress HEENT: Pupils Equal, Pupils Reactive Neck: Supple Lungs: Clear to Auscultation, Normal Respiratory Effort, Decreased Breath Sounds Cardiovascular: Regular Rate, Regular Rhythm GI/Abdominal Exam: Normal Bowel Sounds, Soft, Non-Tender, No Distention Extremities: Normal Inspection, Non-Tender, No Pedal Edema, Normal Capillary Refill Skin: Warm, Dry, Intact - Problem List & Annotations (1) Bacteriuria SNOMED Code(s): 62680592 Code(s): R82.71 - BACTERIURIA Status: Acute Current Visit: Yes (2) Hypoxia SNOMED Code(s): 591659816 Code(s): R09.02 - HYPOXEMIA Status: Acute Current Visit: Yes (3) Reactive airway disease SNOMED Code(s): 919594612452 Code(s): J45.909 - UNSPECIFIED ASTHMA, UNCOMPLICATED Status: Acute Current Visit: Yes Qualifiers: Asthma severity: moderate Asthma persistence: persistent Asthma complication type: with acute exacerbation Qualified Code(s): J45.41 - Moderate persistent asthma with (acute) exacerbation (4) Suprapubic catheter SNOMED Code(s): 835457063, 236346349 Code(s): Z93.59 - OTHER CYSTOSTOMY STATUS Status: Acute Priority: High Current Visit: No (5) Pneumonia SNOMED Code(s): 623329970 Code(s): J18.9 - PNEUMONIA, UNSPECIFIED ORGANISM Status: Acute Current Visit: Yes - Problem List Review Problem List Initiated/Reviewed/Updated: Yes - My Orders Last 24 Hours: My Active Orders 01/20/19 19:00 Albuterol/Ipratropium [DuoNeb 3.0-0.5 MG/3 ML] 3 ml NEB Q6H PRN 01/21/19 06:15 Ampicillin/Sulbactam Na [Unasyn] 3 gm Sodium Chloride 0.9% [Normal Saline] 100 ml IV Q6H - Plan Plan:: pneumonia with acute exacerbation of asthma with hypoxemia * Patient was started on Unasyn in the emergency room. This is not typically the first choice for empiric treatment of patient from residential and recently had antibiotics, but patient has been afebrile and actually improving with lowering O2 requirements and lowering C-reactive protein. We will continue to follow closely before adding or changing antibiotics. * there is also some concern that this may be an aspiration pneumonia although there was no aspiration witnessed. Patient was found at the residential hypoxic a couple hours after receiving Dilaudid by mouth. * Continue prednisone 40 mg daily for total of 5 days * DuoNeb every 4 hours * Albuterol nebulizer every 2 hours when necessary * CBC, C-reactive protein,and CMP in the morning * Pulse ox to keep oxygen above 92%. Currently on 2 L nasal cannula asymptomatic bacteriuria secondary to indwelling catheter * Patient has an indwelling catheter and will always have bacteria. She is afebrile with a normal white count. I would not recommend treating this regularly. * Current urinary culture growing gram-positive cocci and gram-negative rods paraplegia with chronic back pain * Switch Dilaudid to oxycodone 5 mg every 6 when necessary while in the hospital and see if this improves her pain. * Patient is on multiple medications secondary to the above conditions. patient is a full code Prognosis is good for the short-term, but guarded long-term due to her multiple medical problems. VTE prophylaxis with Lovenox 40 mg daily
[2019-01-21] MEDS: oxyCODONE 5 MG Tab PO PRN ×2 (11:32→20:32)
[2019-01-21] MEDS: LORazepam 0.5 MG Tab PO SCH (20:22)
[2019-01-21] MEDS: Melatonin 3 MG Tab PO SCH (20:23)
[2019-01-22] MEDS: Ampicillin/Sulbactam Na 3 GM in Sodium Chloride 0.9% 100 ML IV SCH ×2 (05:32→12:05)
[2019-01-22] MEDS: Levothyroxine 150 MCG Tab PO SCH (05:32)
[2019-01-22] MEDS: Acetaminophen 325 MG Tab PO PRN (07:53)
[2019-01-22] MEDS: predniSONE 20 MG Tab PO SCH (07:53)
[2019-01-22 08:38] VITALS: BP 142/67
[2019-01-22] MEDS: DULoxetine 30 MG Cap PO SCH (09:23)
[2019-01-22] MEDS: Pregabalin 75 MG Cap PO SCH (09:23)
[2019-01-22] MEDS: Baclofen 10 MG Tab PO SCH ×2 (09:24→12:05)
[2019-01-22] MEDS: Enoxaparin 40 MG/0.4 ML Syringe SUBCUT SCH (09:25)
[2019-01-22] MEDS ORDERED: Docusate Sodium 100 MG Cap PO ONE (09:30)
--- NOTE | 2019-01-22 11:59 | PCM.DCSUM1 ---
Discharge Summary - Hospital Course HPI Initial Comments: 53-year-old paraplegic female was brought to the emergency room today from her care facility, [facility], secondary to altered mental status and low oxygen saturation. Patient was given breathing treatment on the way to the emergency room. History is obtained from old records since patient was too tired to give me a good history. when she first arrived in the emergency room she was on 10 L facemask and O2 sats were in the low 90s. In the emergency room she was given some Narcan and that did seem to wake her up a little more. White count and lactic acid were normal. UA did show positive nitrites and leukocytes , but patient does have an indwelling catheter. She did have Klebsiella pneumonia bacteria on her last visit in November that was sensitive to Unasyn. After DuoNeb and Solu-Medrol patient was moving air better. She does have a long history of episodes of reactive airway exacerbations. She has a history of moderate persistent asthma with acute exacerbations. patient did tell me she is having back pain. Brief History: patient was admitted and started on Unasyn. She had good results in decreasing her oxygen needs. Patient does smoke and plans to continue smoking. I explained to her that she will not be able to smoke while on oxygen. Diagnosis: Stroke: No - Discharge Data Discharge Date: 01/22/19 Discharge Disposition: Home, Self-Care 01 Condition: Good - Discharge Diagnosis/Problem(s) (1) Bacteriuria SNOMED Code(s): 16163173 ICD Code: R82.71 - BACTERIURIA Status: Acute Current Visit: Yes (2) Hypoxia SNOMED Code(s): 877397810 ICD Code: R09.02 - HYPOXEMIA Status: Acute Current Visit: Yes (3) Reactive airway disease SNOMED Code(s): 714744049017 ICD Code: J45.909 - UNSPECIFIED ASTHMA, UNCOMPLICATED Status: Acute Current Visit: Yes Qualifiers: Asthma severity: moderate Asthma persistence: persistent Asthma complication type: with acute exacerbation Qualified Code(s): J45.41 - Moderate persistent asthma with (acute) exacerbation (4) Suprapubic catheter SNOMED Code(s): 209754828, 984208812 ICD Code: Z93.59 - OTHER CYSTOSTOMY STATUS Status: Acute Priority: High Current Visit: No (5) Pneumonia SNOMED Code(s): 695369683 ICD Code: J18.9 - PNEUMONIA, UNSPECIFIED ORGANISM Status: Acute Current Visit: Yes - Patient Summary/Data Consults: Consultations 01/18/19 16:06 Respiratory Care Assess and Treatment [CONS] Routine - Patient Instructions Diet: Heart Healthy Diet Driving: Do Not Drive Showering/Bathing: May Shower Other/Special Instructions: Follow up with PCP within 1 week. - Discharge Plan *PRESCRIPTION DRUG MONITORING PROGRAM REVIEWED*: Not Applicable *COPY OF PRESCRIPTION DRUG MONITORING REPORT IN PATIENT DANNY: Not Applicable Prescriptions/Med Rec: Albuterol/Ipratropium [DuoNeb 3.0-0.5 MG/3 ML] 3 ml NEB Q6H PRN #120 neb PRN Reason: SOB/Wheezing Amoxicillin/Clavulanate K [Augmentin 875-125 MG] 1 tab PO Q12H #10 tablet oxyCODONE 5 mg PO Q8H PRN #30 tablet PRN Reason: Pain predniSONE 40 mg PO WITHBREAKFAST #2 tablet Home Medications: Home Meds Acetaminophen [Tylenol] 650 mg PO Q4H PRN 11/17/18 [History] Alpha Lipoic Acid 300 mg PO DAILY 11/17/18 [History] Baclofen 20 mg PO QID 11/17/18 [History] Bisacodyl 10 mg RC DAILY PRN 11/17/18 [History] LORazepam [Ativan] 0.5 mg PO BEDTIME 11/17/18 [History] Levothyroxine 150 mcg PO ACBREAKFAST 11/17/18 [History] Loperamide HCl [Imodium A-D] 4 mg PO TID PRN 11/17/18 [History] Magnesium Citrate 150 ml PO BID PRN 11/17/18 [History] Multivitamin [Daily Multiple Vitamin] 1 tab PO DAILY 11/17/18 [History] Naproxen Sodium [Aleve] 440 mg PO BEDTIME 11/17/18 [History] Ondansetron [Zofran ODT] 4 mg PO TID PRN 11/17/18 [History] SUMAtriptan Succinate [Imitrex] 100 mg PO BID PRN 11/17/18 [History] Trolamine Salicylate/Aloe Vera [Aspercreme 10% Cream] 1 applic TRDERM QID PRN [History] Albuterol Sulfate 1 vial INH BID PRN 01/18/19 [History] DULoxetine HCl [Cymbalta] 60 mg PO DAILY 01/18/19 [History] Mag Hydrox/Al Hydrox/Simeth [[place]] 30 ml PO Q4H PRN 01/18/19 [History] Melatonin 10 mg PO BEDTIME 01/18/19 [History] Na Phos,M-B/Na Phos,DI-B [Fleet Enema] 1 applic RECTAL ASDIRECTED PRN 01/18/19 [ History] Naloxone HCl [Narcan] 4 mg DEMETRI ASDIRECTED 01/18/19 [History] Polyethylene Glycol 3350 [MiraLAX] 17 gm PO DAILY PRN 01/18/19 [History] Pregabalin [Lyrica] 150 mg PO TID 01/18/19 [History] Sodium Chloride Irrig Solution [Sodium Chloride] 120 ml .ROUTE BID 01/18/19 [ History] guaiFENesin [Mucinex] 600 mg PO BID PRN 01/18/19 [History] Albuterol/Ipratropium [DuoNeb 3.0-0.5 MG/3 ML] 3 ml NEB Q6H PRN #120 neb [Rx] Amoxicillin/Clavulanate K [Augmentin 875-125 MG] 1 tab PO Q12H #10 tablet [Rx] oxyCODONE 5 mg PO Q8H PRN #30 tablet 01/22/19 [Rx] predniSONE 40 mg PO WITHBREAKFAST #2 tablet 01/22/19 [Rx] Oxygen Therapy Mode: Nasal Cannula FiO2: 2 Maintain SPO2% less than: 97 Maintain SpO2% greater than: 92 Patient Handouts: Steps to Quit Smoking, Community-Acquired Pneumonia, Adult Forms: ED Department Discharge Referrals: Jd Cao MD [Primary Care Provider] - 02/01/19 11:30 am (please attend the scheduled follow up appointment with your primary care provider ) - Discharge Summary/Plan Comment DC Time >30 min.: Yes Discharge Summary/Plan Comment: * discharge home, back to [facility] On 2 L nasal cannula * Augmentin 875 mg by mouth for 5 more days * Encouraged to stop smoking but patient refuses nicotine patch * Change to Dilaudid to oxycodone 5 mg daily because of concerns of aspiration after getting Dilaudid. - Patient Data Vitals - Most Recent: Last Vital Signs Temp 97.9 F 01/22/19 08:35 Pulse 60 01/22/19 08:35 Resp 14 01/22/19 08:35 BP 142/67 H 01/22/19 08:35 Pulse Ox 91 L 01/22/19 08:35 Weight - Most Recent: 208 lb 12.8 oz I&O - Last 24 hours: Intake & Output 01/21/19 01/22/19 01/22/19 22:59 06:59 14:59 Intake Total 1220 1250 90 Output Total 650 1150 Balance 570 100 90 JENNIFER Results - Last 24 hrs: Microbiology 01/18/19 10:45 Urine Culture - Final Urine, Dixon Cath (Indwelling) Enterobacter Cloacae Enterococcus Faecalis Pseudomonas Aeruginosa 01/18/19 08:10 Aerobic Blood Culture - Preliminary Blood - Venous - Lab Draw NO GROWTH AFTER 4 DAYS Anaerobic Blood Culture - Preliminary NO GROWTH AFTER 4 DAYS 01/18/19 07:57 Aerobic Blood Culture - Preliminary Blood - Venous NO GROWTH AFTER 4 DAYS Anaerobic Blood Culture - Preliminary NO GROWTH AFTER 4 DAYS Med Orders - Current: Current Medications Acetaminophen (Tylenol) 650 mg PO Q4H PRN PRN Reason: Pain Last Admin: 01/22/19 07:53 Dose: 650 mg Albuterol/Ipratropium (Duoneb 3.0-0.5 Mg/3 Ml) 3 ml NEB Q6H PRN PRN Reason: SOB/Wheezing Baclofen (Lioresal) 20 mg PO QID [facility] Last Admin: 01/22/19 09:24 Dose: 20 mg Duloxetine HCl (Cymbalta) 60 mg PO DAILY [facility] Last Admin: 01/22/19 09:23 Dose: 60 mg Enoxaparin Sodium (Lovenox) 40 mg SUBCUT DAILY [facility] Last Admin: 01/22/19 09:25 Dose: 40 mg Guaifenesin (Mucinex) 600 mg PO BID PRN PRN Reason: Congestion Ampicillin Sodium/Sulbactam (Sodium 3 gm/ Sodium Chloride) 100 mls @ 200 mls/ hr IV Q6H [facility] Last Admin: 01/22/19 05:32 Dose: 200 mls/hr Levothyroxine Sodium (Levothyroxine) 150 mcg PO ACBREAKFAST [facility] Last Admin: 01/22/19 05:32 Dose: 150 mcg Lorazepam (Ativan) 0.5 mg PO BEDTIME [facility] Last Admin: 01/21/19 20:22 Dose: 0.5 mg Magnesium Citrate (Citrate Of Magnesia) 150 ml PO BID PRN PRN Reason: Constipation Melatonin (Melatonin) 9 mg PO BEDTIME [facility] Last Admin: 01/21/19 20:23 Dose: 9 mg Oxycodone HCl (Oxycodone) 5 mg PO Q6H PRN PRN Reason: Pain Last Admin: 01/21/19 20:32 Dose: 5 mg Polyethylene Glycol (Miralax) 17 gm PO DAILY PRN PRN Reason: Constipation Prednisone (Prednisone) 40 mg PO WITHBREAKFAST [facility] Last Admin: 01/22/19 07:53 Dose: 40 mg Pregabalin (Lyrica) 150 mg PO TID [facility] Last Admin: 01/22/19 09:23 Dose: 150 mg Sodium Chloride (Saline Flush) 10 ml FLUSH ASDIRECTED PRN PRN Reason: Keep Vein Open Last Admin: 01/18/19 08:21 Dose: 10 ml Discontinued Medications Albuterol/Ipratropium (Duoneb 3.0-0.5 Mg/3 Ml) 3 ml NEB ONETIME ONE Stop: 01/18/19 11:30 Last Admin: 01/18/19 11:41 Dose: 3 ml Albuterol/Ipratropium (Duoneb 3.0-0.5 Mg/3 Ml) 3 ml NEB ONETIME ONE Stop: 01/18/19 12:45 Last Admin: 01/18/19 13:11 Dose: 3 ml Albuterol/Ipratropium (Duoneb 3.0-0.5 Mg/3 Ml) 3 ml NEB Q6H [facility] Last Admin: 01/18/19 16:25 Dose: Not Given Albuterol/Ipratropium (Duoneb 3.0-0.5 Mg/3 Ml) 3 ml NEB Q6HRRT [facility] Last Admin: 01/20/19 15:15 Dose: Not Given Docusate Sodium (Colace) 100 mg PO ONETIME ONE Stop: 01/22/19 09:31 Last Admin: 01/22/19 09:33 Dose: 100 mg Hydromorphone HCl (Dilaudid) 1 mg PO Q12H PRN PRN Reason: Pain Last Admin: 01/19/19 10:33 Dose: 1 mg Sodium Chloride (Normal Saline) 500 mls @ 1,000 mls/hr IV .BOLUS ONE Stop: 01/18/19 09:59 Last Admin: 01/18/19 09:40 Dose: 1,000 mls/hr Ampicillin Sodium/Sulbactam (Sodium 3 gm/ Sodium Chloride) 100 mls @ 200 mls/ hr IV ONETIME ONE Stop: 01/18/19 11:33 Last Admin: 01/18/19 11:20 Dose: 200 mls/hr Ampicillin Sodium/Sulbactam (Sodium 3 gm/ Sodium Chloride) 100 mls @ 200 mls/ hr IV Q6H [facility] Last Admin: 01/21/19 06:26 Dose: Not Given Ampicillin Sodium/Sulbactam (Sodium 3 gm/ Sodium Chloride) 100 mls @ 200 mls/ hr IV Q6H [facility] Last Admin: 01/21/19 06:28 Dose: 200 mls/hr Methylprednisolone Sodium Succinate (Solu-Medrol) 125 mg IVPUSH ONETIME ONE Stop: 01/18/19 12:30 Last Admin: 01/18/19 13:14 Dose: 125 mg Methylprednisolone Sodium Succinate (Solu-Medrol) 40 mg IVPUSH Q6H [facility] Last Admin: 01/20/19 07:04 Dose: 40 mg Naloxone HCl (Narcan) 2 mg IVPUSH ONETIME ONE Stop: 01/18/19 08:16 Last Admin: 01/18/19 08:17 Dose: 2 mg Ondansetron HCl (Zofran) 4 mg IVPUSH ONETIME ONE Stop: 01/18/19 08:16 Last Admin: 01/18/19 08:15 Dose: 4 mg
== END 2019-01-22 13:47 | disposition home or self-care (01) | DRG 202 ==
LOC: JD.ED 07:42 → SUPCPDRO 07:42 → JD.MS 13:28
PROVIDERS: ADMIT Family Medicine; ATTEND Family Medicine
DX: J45.41 Moderate persistent asthma with (acute) exacerbation (principal); J18.9 Pneumonia, unspecified organism; T83.511A Infection and inflammatory reaction due to indwelling urethral catheter, initial encounter; R09.02 Hypoxemia; G82.20 Paraplegia, unspecified; R41.82 Altered mental status, unspecified; N39.0 Urinary tract infection, site not specified; T38.0X5A Adverse effect of glucocorticoids and synthetic analogues, initial encounter; G89.29 Other chronic pain; M54.9 Dorsalgia, unspecified; R05 Cough; R06.02 Shortness of breath; F17.210 Nicotine dependence, cigarettes, uncomplicated; I10 Essential (primary) hypertension; G43.909 Migraine, unspecified, not intractable, without status migrainosus; Z79.890 Hormone replacement therapy; F41.9 Anxiety disorder, unspecified; F32.9 Major depressive disorder, single episode, unspecified; E03.9 Hypothyroidism, unspecified; E66.9 Obesity, unspecified; Z88.1 Allergy status to other antibiotic agents; N31.9 Neuromuscular dysfunction of bladder, unspecified; Z93.50 Unspecified cystostomy status; Z87.440 Personal history of urinary (tract) infections; Z79.899 Other long term (current) drug therapy; Z68.32 Body mass index [BMI] 32.0-32.9, adult; Z79.52 Long term (current) use of systemic steroids; Z90.49 Acquired absence of other specified parts of digestive tract; Z93.59 Other cystostomy status; Z90.710 Acquired absence of both cervix and uterus
CPT/HCPCS: 36415; 71045; 80053; 80306; 81001; 83605; 85025; 87040 ×2; 87086; 87088 ×3; 87186 ×3; 94640 ×2; 96361; 96365; 96375; 99285; J0295; J2310; J2405; J2930; J7030; J7040; 51702; 80048; 83735; 86140; 94760; 94761; 94762; 99283; A9270-GY; J1650; J2920; J7620-GY

== ENCOUNTER 2019-03-25 14:33 | Inpatient (IN) | payer MEDICAID ==
[2019-03-25] MEDS ORDERED: Sodium Chloride 0.9% 10 ML Syringe FLUSH PRN (14:39)
[2019-03-25] MEDS ORDERED: Albuterol/Ipratropium 3.0-0.5 MG/3 ML Neb Soln NEB ONE (14:40)
[2019-03-25] MEDS ORDERED: methylPREDNISolone Sodium Succinate 125 MG/2 ML SDV IVPUSH ONE (14:41)
[2019-03-25] MEDS ORDERED: Azithromycin 500 MG in Sodium Chloride 0.9% 250 ML IV ONE (16:59)
--- NOTE | 2019-03-25 17:43 | EDM.PDOC ---
ED HPI GENERAL MEDICAL PROBLEM - General Chief Complaint: Respiratory Problem Stated Complaint: [facility] Time Seen by Provider: 03/25/19 14:39 Source of Information: Reports: Patient, EMS, Alf Records, Provider History Limitations: Reports: No Limitations - History of Present Illness INITIAL COMMENTS - FREE TEXT/NARRATIVE: The patient presents by [facility] for shortness of breath and cough. The patient is a resident of [facility]. [facility] because of back surgery in 2014 that did not go well and she has paralysis. She has an indwelling carter cath. She has COPD and asthma. She had no fever but her oxygen saturations were low this morning at 82%. She does were oxygen at night but not during the days. She says she does have a cough. She has no documented fever. She has no chest pain. She has no abdominal pain , nausea or vomiting. Onset: Gradual Duration: Hour(s): Severity: Moderate Improves with: Reports: None Worsens with: Reports: None Associated Symptoms: Reports: Cough, cough w sputum, Shortness of Breath. 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: Oxygen Headache Pain Score (Numeric/FACES): 7 - Related Data Allergies Allergy/AdvReac Type Severity Reaction Status Date / Time cefixime [From Suprax] Allergy Mild Itching Verified 03/25/19 14:48 Home Meds: Home Meds Acetaminophen [Tylenol] 650 mg PO Q4H PRN 11/17/18 [History] Alpha Lipoic Acid 300 mg PO DAILY 11/17/18 [History] Baclofen 20 mg PO QID 11/17/18 [History] Bisacodyl 10 mg RC DAILY PRN 11/17/18 [History] LORazepam [Ativan] 0.5 mg PO BEDTIME 11/17/18 [History] Levothyroxine 150 mcg PO ACBREAKFAST 11/17/18 [History] Loperamide HCl [Imodium A-D] 4 mg PO TID PRN 11/17/18 [History] Magnesium Citrate 150 ml PO BID PRN 11/17/18 [History] Multivitamin [Daily Multiple Vitamin] 1 tab PO DAILY 11/17/18 [History] Naproxen Sodium [Aleve] 440 mg PO BEDTIME 11/17/18 [History] Ondansetron [Zofran ODT] 4 mg PO TID PRN 11/17/18 [History] SUMAtriptan Succinate [Imitrex] 100 mg PO BID PRN 11/17/18 [History] Trolamine Salicylate/Aloe Vera [Aspercreme 10% Cream] 1 applic TRDERM QID PRN [History] Albuterol Sulfate 1 vial INH BID PRN 01/18/19 [History] DULoxetine HCl [Cymbalta] 60 mg PO DAILY 01/18/19 [History] Mag Hydrox/Al Hydrox/Simeth [[place]] 30 ml PO Q4H PRN 01/18/19 [History] Melatonin 10 mg PO BEDTIME 01/18/19 [History] Na Phos,M-B/Na Phos,DI-B [Fleet Enema] 1 applic RECTAL ASDIRECTED PRN 01/18/19 [ History] Naloxone HCl [Narcan] 4 mg DEMETRI ASDIRECTED 01/18/19 [History] Polyethylene Glycol 3350 [MiraLAX] 17 gm PO DAILY PRN 01/18/19 [History] Pregabalin [Lyrica] 150 mg PO TID 01/18/19 [History] Sodium Chloride Irrig Solution [Sodium Chloride] 120 ml .ROUTE BID 01/18/19 [ History] guaiFENesin [Mucinex] 600 mg PO BID PRN 01/18/19 [History] Albuterol/Ipratropium [DuoNeb 3.0-0.5 MG/3 ML] 3 ml NEB Q6H PRN #120 neb [Rx] Amoxicillin/Clavulanate K [Augmentin 875-125 MG] 1 tab PO Q12H #10 tablet [Rx] oxyCODONE 5 mg PO Q8H PRN #30 tablet 01/22/19 [Rx] predniSONE 40 mg PO WITHBREAKFAST #2 tablet 01/22/19 [Rx] Past Medical History HEENT History: Reports: None, Other (See Below) Other HEENT History: nasal congestion Cardiovascular History: Reports: Hypertension Respiratory History: Reports: Intubation, Previous Other Respiratory History: chronic respiratory failure with hypoxia Gastrointestinal History: Reports: Chronic Constipation, Other (See Below) Other Gastrointestinal History: nausea Genitourinary History: Reports: Neurogenic Bladder, UTI, Recurrent, Other (See Below) Other Genitourinary History: suprapubic catheter, acute kidney injury, chronic UTI. tubulo-interstitial nephritis [employer] History: Reports: Musculoskeletal History: Reports: Back Pain, Chronic, Fracture Other Musculoskeletal History: paraplegic, 3 back surgeries. Most recent back surgery was in March of 2015. postlaminectomy syndrome; cramps; spasms'. 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 radiculopathy; restless leg syndrome Psychiatric History: Reports: Anxiety, Depression, Other (See Below) Other Psychiatric History: opioid dependence; insomnia Endocrine/Metabolic History: Reports: Hypothyroidism, Obesity/BMI 30+ Hematologic History: Reports: None Immunologic History: Reports: None Oncologic (Cancer) History: Reports: None Dermatologic History: Reports: Other (See Below) Other Dermatologic History: pressure ulcer to buttocks - Infectious Disease History Infectious Disease History: Reports: Chicken Pox, Measles, MRSA Other Infectious Disease History: hx mrsa in urine - Past Surgical History Head Surgeries/Procedures: Reports: Other (See Below) HEENT Surgical History: Reports: Oral Surgery, Tonsillectomy Other HEENT Surgeries/Procedures: recurrent oral aphthae Cardiovascular Surgical History: Reports: None Respiratory Surgical History: Reports: None GI Surgical History: Reports: None Female Surgical History: Reports: Hysterectomy, Suprapubic Catheter Placement Endocrine Surgical History: Reports: Thyroidectomy Neurological Surgical History: Reports: Lumbar Spine Oncologic Surgical History: Reports: None Social & Family History - Family History Family Medical History: Noncontributory - Tobacco Use Smoking Status *Q: Current Every Day Smoker Years of Tobacco use: 30 Packs/Tins Daily: 0.5 - Caffeine Use Caffeine Use: Reports: None - Recreational Drug Use Recreational Drug Use: No - Living Situation & Occupation Living situation: Reports: , with Significant Other (Boyfriend) Occupation: Disabled ED ROS GENERAL - Review of Systems Review Of Systems: See Below Constitutional: Reports: No Symptoms HEENT: Reports: No Symptoms Respiratory: Reports: Shortness of Breath, Cough Cardiovascular: Reports: No Symptoms Endocrine: Reports: No Symptoms GI/Abdominal: Reports: No Symptoms Musculoskeletal: Reports: No Symptoms ED EXAM, GENERAL - Physical Exam Exam: See Below Exam Limited By: No Limitations General Appearance: Alert, No Apparent Distress Ears: Normal External Exam Nose: Normal Inspection Head: Atraumatic, Normocephalic Neck: Normal Inspection Respiratory/Chest: No Respiratory Distress, Decreased Breath Sounds, Wheezing Cardiovascular: Regular Rate, Rhythm, No Edema, No Murmur GI/Abdominal: Soft, Non-Tender, No Organomegaly, No Mass Back Exam: Normal Inspection Extremities: Normal Inspection Course - Vital Signs Last Recorded V/S: Last Vital Signs Temp 98.1 F 03/25/19 14:43 Pulse 91 03/25/19 17:41 Resp 14 03/25/19 17:41 BP 138/82 03/25/19 17:41 Pulse Ox 84 L 03/25/19 18:17 - Orders/Labs/Meds Orders: Active Orders 24 hr Category Date Time Status Admission Status [Patient Status] [ADT] Routine ADT 03/25/19 17:23 Active Peripheral IV Care [RC] Q2HR Care 03/25/19 14:40 Active RT Aerosol Therapy [RC] ASDIRECTED Care 03/25/19 14:40 Active Chest 1V Frontal [CR] Stat Exams 03/25/19 14:40 Taken CULTURE BLOOD [BC] Stat Lab 03/25/19 15:20 Received CULTURE BLOOD [BC] Stat Lab 03/25/19 15:35 Received UA W/MICROSCOPIC [URIN] Stat Lab 03/25/19 16:35 Ordered Sodium Chloride 0.9% [Saline Flush] Med 03/25/19 14:39 Active 10 ml FLUSH ASDIRECTED PRN Blood Culture x2 Reflex Set [OM.PC] Stat Oth 03/25/19 14:45 Ordered Peripheral IV Insertion Adult [OM.PC] Stat Oth 03/25/19 14:39 Ordered Medication Orders Acetaminophen (Tylenol) 650 mg PO Q4H PRN PRN Reason: Pain (Mild 1-3)/fever Hydrocodone Bitart/Acetaminophen ([place] 325-5 Mg) 1 tab PO Q4H PRN PRN Reason: Pain (moderate 4-6) Albuterol/Ipratropium (Duoneb 3.0-0.5 Mg/3 Ml) 3 ml NEB Q4H PRN PRN Reason: Shortness Of Breath/wheezing Albuterol/Ipratropium (Duoneb 3.0-0.5 Mg/3 Ml) 3 ml NEB BIDRT [place] Bisacodyl (Dulcolax) 5 mg PO DAILY PRN PRN Reason: Constipation Docusate Sodium (Colace) 100 mg PO BID PRN PRN Reason: Constipation Hydromorphone HCl (Dilaudid) 0.5 mg IVPUSH Q2H PRN PRN Reason: Pain (severe 7-10) Promethazine HCl 6.25 mg/ (Sodium Chloride) 50.25 mls @ 100 mls/hr IV Q6H PRN PRN Reason: Nausea/Vomiting Magnesium Sulfate/Dextrose 1 (gm/ Premix) 100 mls @ 100 mls/hr IV ONETIME ONE Stop: 03/25/19 20:49 Lorazepam (Ativan) 1 mg IV Q6H PRN PRN Reason: Anxiety Methylprednisolone Sodium Succinate (Solu-Medrol) 125 mg IVPUSH Q8H SH[place] Ondansetron HCl (Zofran) 4 mg IV Q6H PRN PRN Reason: Nausea/Vomiting Pantoprazole Sodium (Protonix Iv) 40 mg IV Q12HR [place] Polyethylene Glycol (Miralax) 17 gm PO DAILY PRN PRN Reason: Constipation Senna/Docusate Sodium (Senna Plus) 1 tab PO BID PRN PRN Reason: Constipation Sodium Chloride (Saline Flush) 10 ml FLUSH ASDIRECTED PRN PRN Reason: Keep Vein Open Last Admin: 03/25/19 16:09 Dose: 10 ml Temazepam (Restoril) 7.5 mg PO BEDTIME PRN PRN Reason: Sleep Labs: Laboratory Tests 03/25/19 03/25/19 03/25/19 Range/Units 15:20 15:35 16:00 WBC 7.72 (3.98-10.04) K/mm3 RBC 6.21 H (3.98-5.22) M/mm3 Hgb 18.0 H D (11.2-15.7) gm/L Hct 58.6 H (34.1-44.9) % MCV 94.4 (79.4-94.8) fl MCH 29.0 (25.6-32.2) pg MCHC 30.7 L (32.2-35.5) g/dl RDW Std Deviation 53.5 H (36.4-46.3) fL Plt Count 102 L (182-369) K/mm3 MPV 10.7 (9.4-12.3) fl Neut % (Auto) 80.5 H (34.0-71.1) % Lymph % (Auto) 13.5 L (19.3-51.7) % [place] % (Auto) 5.3 (4.7-12.5) % Eos % (Auto) 0.3 L (0.7-5.8) Baso % (Auto) 0.1 (0.1-1.2) % Neut # (Auto) 6.22 H (1.56-6.13) K/mm3 Lymph # (Auto) 1.04 L (1.18-3.74) K/mm3 [place] # (Auto) 0.41 H (0.24-0.36) K/mm3 Eos # (Auto) 0.02 L (0.04-0.36) K/mm3 Baso # (Auto) 0.01 (0.01-0.08) K/mm3 Manual Slide Review Normal smear Sodium 148 H (136-145) mEq/L Potassium 4.8 (3.5-5.1) mEq/L Chloride 106 (98-107) mEq/L Carbon Dioxide 40 H (21-32) mEq/L Anion Gap 6.8 (5-15) BUN 12 (7-18) mg/dL Creatinine 0.9 (0.55-1.02) mg/dL Est Cr Clr Drug Dosing TNP Estimated GFR (MDRD) > 60 (>60) mL/min BUN/Creatinine Ratio 13.3 L (14-18) Glucose 99 (74-106) mg/dL Lactic Acid 2.1 H (0.4-2.0) mmol/L Calcium 9.1 (8.5-10.1) mg/dL Total Bilirubin 0.6 (0.2-1.0) mg/dL AST 18 (15-37) U/L ALT 26 (14-59) U/L Alkaline Phosphatase 164 H (46-116) U/L Total Protein 7.8 (6.4-8.2) g/dl Albumin 3.6 (3.4-5.0) g/dl Globulin 4.2 gm/dL Albumin/Globulin Ratio 0.9 L (1-2) Meds: Medications Generic Name Dose Route Start Last Admin Trade Name Freq PRN Reason Stop Dose Admin Acetaminophen 650 mg 03/25/19 19:44 Tylenol PO Q4H PRN Pain (Mild 1-3)/fever Hydrocodone Bitart/Acetaminophen 1 tab 03/25/19 19:44 [place] 325-5 Mg PO Q4H PRN Pain (moderate 4-6) Albuterol/Ipratropium 3 ml 03/25/19 19:44 Duoneb 3.0-0.5 Mg/3 Ml NEB Q4H PRN Shortness Of Breath/wheezing Albuterol/Ipratropium 3 ml 03/25/19 21:00 Duoneb 3.0-0.5 Mg/3 Ml NEB BIDRT SHAWNA Bisacodyl 5 mg 03/25/19 19:44 Dulcolax PO DAILY PRN Constipation Docusate Sodium 100 mg 03/25/19 19:44 Colace PO BID PRN Constipation Hydromorphone HCl 0.5 mg 03/25/19 19:44 Dilaudid IVPUSH Q2H PRN Pain (severe 7-10) Promethazine HCl 6.25 mg/ 50.25 mls @ 100 mls/hr 03/25/19 19:44 Sodium Chloride IV Q6H PRN Nausea/Vomiting Magnesium Sulfate/Dextrose 1 100 mls @ 100 mls/hr 03/25/19 19:50 gm/ Premix IV 03/25/19 20:49 ONETIME ONE Lorazepam 1 mg 03/25/19 19:44 Ativan IV Q6H PRN Anxiety Methylprednisolone Sodium Succinate 125 mg 03/25/19 22:00 Solu-Medrol IVPUSH Q8H SHAW[place] Ondansetron HCl 4 mg 03/25/19 19:44 Zofran IV Q6H PRN Nausea/Vomiting Pantoprazole Sodium 40 mg 03/25/19 21:00 Protonix Iv IV Q12HR [facility] Polyethylene Glycol 17 gm 03/25/19 19:44 Miralax PO DAILY PRN Constipation Senna/Docusate Sodium 1 tab 03/25/19 19:44 Senna Plus PO BID PRN Constipation Sodium Chloride 10 ml 03/25/19 14:39 03/25/19 16:09 Saline Flush FLUSH 10 ml ASDIRECTED PRN Administration Keep Vein Open Temazepam 7.5 mg 03/25/19 19:44 Restoril PO BEDTIME PRN Sleep Discontinued Medications Generic Name Dose Route Start Last Admin Trade Name Delta PRN Reason Stop Dose Admin Albuterol/Ipratropium 3 ml 03/25/19 14:40 03/25/19 15:02 Duoneb 3.0-0.5 Mg/3 Ml NEB 03/25/19 14:41 3 ml ONETIME ONE Administration Albuterol/Ipratropium Confirm 03/25/19 18:13 03/25/19 18:17 Duoneb 3.0-0.5 Mg/3 Ml Administered 03/25/19 18:14 3 ml Dose Administration 3 ml .ROUTE .STK-MED ONE Azithromycin 500 mg/ Sodium 250 mls @ 250 mls/hr 03/25/19 16:59 03/25/19 17: 39 Chloride IV 03/25/19 17:58 250 mls/hr ONETIME ONE Administration Methylprednisolone Sodium Succinate 125 mg 03/25/19 14:41 03/25/19 15:50 Solu-Medrol IVPUSH 03/25/19 14:42 125 mg ONETIME ONE Administration - Re-Assessments/Exams Free Text/Narrative Re-Assessment/Exam: 03/25/19 19:55 I ordered oxygen, IV saline lock, CXR, duoneb, blood cultures and lactic acid. 03/25/19 19:57 Her CXR shows no infiltrate. That was read by Dr Hall. Her WBC is normal. Her Hgb is elevated at 18. Her Na was elevated at 148. Her COT was 40. Her lactic acid was elevated slightly at 2.1. I have ordered blood cultures and zithromax 500mg IV. I also gave her some solu-medrol 125mg IV. I feel she may need to be admitted for the hypoxia. She has a COPD exacerbation and probably pneumonia. I called Dr Devine and he agreed to the admission. The blood gas machine was down and now it is up and her pH was low at 7.27. Her PCO2 is elevated at 77.6. Her pO2 is low at 53. Dr Devine did order some bipap. Departure - Departure Time of Disposition: 20:00 Disposition: Admitted As Inpatient 64 Clinical Impression: COPD exacerbation, Hypoxia Pneumonia Qualifiers: Pneumonia type: due to unspecified organism Laterality: unspecified laterality Lung location: unspecified part of lung Qualified Code(s): J18.9 - Pneumonia, unspecified organism - Discharge Information - My Orders Last 24 Hours: My Active Orders 03/25/19 14:39 Sodium Chloride 0.9% [Saline Flush] 10 ml FLUSH ASDIRECTED PRN Peripheral IV Insertion Adult [OM.PC] Stat 03/25/19 14:40 Peripheral IV Care [RC] Q2HR RT Aerosol Therapy [RC] ASDIRECTED Chest 1V Frontal [CR] Stat 03/25/19 14:45 Blood Culture x2 Reflex Set [OM.PC] Stat 03/25/19 15:20 CULTURE BLOOD [BC] Stat 03/25/19 15:35 CULTURE BLOOD [BC] Stat 03/25/19 16:35 UA W/MICROSCOPIC [URIN] Stat 03/25/19 17:23 Admission Status [Patient Status] [ADT] Routine - Assessment/Plan Last 24 Hours: My Active Orders 03/25/19 14:39 Sodium Chloride 0.9% [Saline Flush] 10 ml FLUSH ASDIRECTED PRN Peripheral IV Insertion Adult [OM.PC] Stat 03/25/19 14:40 Peripheral IV Care [RC] Q2HR RT Aerosol Therapy [RC] ASDIRECTED Chest 1V Frontal [CR] Stat 03/25/19 14:45 Blood Culture x2 Reflex Set [OM.PC] Stat 03/25/19 15:20 CULTURE BLOOD [BC] Stat 03/25/19 15:35 CULTURE BLOOD [BC] Stat 03/25/19 16:35 UA W/MICROSCOPIC [URIN] Stat 03/25/19 17:23 Admission Status [Patient Status] [ADT] Routine
[2019-03-25] MEDS ORDERED: Albuterol/Ipratropium 3.0-0.5 MG/3 ML Neb Soln ONE (18:13)
--- NOTE | 2019-03-25 19:32 | PCM.HP.2 ---
H&P History of Present Illness - General Date of Service: 03/25/19 Admit Problem/Dx: Admission Diagnosis/Problem Admission Diagnosis/Problem Hypoxia Source of Information: Patient, Old Records, Provider, RN Notes Reviewed, Significant Other History Limitations: Reports: Respiratory Distress - History of Present Illness Initial Comments - Free Text/Narative: This is a 53 yo white female with past medical hx/o HTN, Chronic Respiratory failure, COPD/Asthma, Constipation, Neurogenic Bladder, Recurrent UTI, Back Pain , Paraplegia S/p Surgery x3, Post Laminectomy Syndrome with Cramps and Spasm, Radiculopathy, Dorsalgia, Generalized Muscle Weakness, T6 and Distal Paralysis, Hx/o Arachnoiditis, Encephalopathy, Hx/o Right Frontal Ventriculostomy, RLS, Hypothyroidism, Hx/o Opioid Dependence, Insomnia, Anxiety, Depression and Obesity Class I who was brought in by ambulance from [place] due to worsening shortness of breath associated with non productive cough. She was also found with O2 sat in the 80s this morning. She has no fever, chest pain or chills. She further denies any GI issues. However she has chronic suprapubic catheter due to neurogenic bladder from paralysis. Her initial work up in ED shows a CBC remarkable for RBC of 6.2, Hgb of 18, Hct of 58.5, MCHC of 30.7, RDW of 53.5, Platelet of 102, Neutrophils of 80.5%, Lymphocytes% of 13.5%, and Eosinophils of 0.3%. Her ABG shows a pH of 7.27, pCO2 of 77.6, pO2 of 53, HCO3 of 34.7, and O2 sat of 84.2% on 5L NC. Her Chemistry is significant for Na of 148, CO2 of 40, LA of 2.1, Alk Phos of 164, and CRP of 3.7. Her UA is positive for UTI. Patient is primarily being admitted for acute on chronic combined hypoxic and hypercapneic respiratory failure. Headache Pain Score (Numeric/FACES): 7 - Related Data Allergies/Adverse Reactions: Allergies Allergy/AdvReac Type Severity Reaction Status Date / Time cefixime [From Suprax] Allergy Mild Itching Verified 03/25/19 21:07 Home Medications: Home Meds Acetaminophen [Tylenol] 650 mg PO Q4H PRN 11/17/18 [History] Alpha Lipoic Acid 300 mg PO DAILY 11/17/18 [History] Baclofen 20 mg PO QID 11/17/18 [History] Bisacodyl 10 mg RC DAILY PRN 11/17/18 [History] LORazepam [Ativan] 0.5 mg PO BEDTIME 11/17/18 [History] Levothyroxine 150 mcg PO ACBREAKFAST 11/17/18 [History] Loperamide HCl [Imodium A-D] 2 mg PO TID PRN 11/17/18 [History] Magnesium Citrate 150 ml PO BID PRN 11/17/18 [History] Multivitamin [Daily Multiple Vitamin] 1 tab PO DAILY 11/17/18 [History] Naproxen Sodium [Aleve] 440 mg PO BEDTIME 11/17/18 [History] Ondansetron [Zofran ODT] 4 mg PO TID PRN 11/17/18 [History] SUMAtriptan Succinate [Imitrex] 100 mg PO BID PRN 11/17/18 [History] Trolamine Salicylate/Aloe Vera [Aspercreme 10% Cream] 1 applic TRDERM QID PRN [History] Albuterol Sulfate 1 vial INH BID PRN 01/18/19 [History] DULoxetine HCl [Cymbalta] 60 mg PO DAILY 01/18/19 [History] Mag Hydrox/Al Hydrox/Simeth [[place]] 30 ml PO Q4H PRN 01/18/19 [History] Melatonin 10 mg PO BEDTIME 01/18/19 [History] Na Phos,M-B/Na Phos,DI-B [Fleet Enema] 1 applic RECTAL ASDIRECTED PRN 01/18/19 [ History] Naloxone HCl [Narcan] 4 mg DEMETRI ASDIRECTED 01/18/19 [History] Polyethylene Glycol 3350 [MiraLAX] 17 gm PO DAILY PRN 01/18/19 [History] Pregabalin [Lyrica] 150 mg PO TID 01/18/19 [History] Albuterol/Ipratropium [DuoNeb 3.0-0.5 MG/3 ML] 3 ml NEB Q6H PRN #120 neb [Rx] oxyCODONE 5 mg PO Q8H PRN #30 tablet 01/22/19 [Rx] Albuterol Sulfate [Albuterol Sulfate Hfa] 8.5 gm IH Q6HR PRN 03/25/19 [History] Fluticasone/Umeclidin/Vilanter [Trelegy Ellipta 100-62.5-25] 1 inh PO DAILY [History] Sodium Chloride/Aloe Vera [[place] Saline Nasal Gel [place]] 1 spray DEMETRI DAILY PRN [History] Past Medical History HEENT History: Reports: None, Other (See Below) Other HEENT History: nasal congestion Cardiovascular History: Reports: Hypertension Respiratory History: Reports: Intubation, Previous Other Respiratory History: chronic respiratory failure with hypoxia Gastrointestinal History: Reports: Chronic Constipation, Other (See Below) Other Gastrointestinal History: nausea Genitourinary History: Reports: Neurogenic Bladder, UTI, Recurrent, Other (See Below) Other Genitourinary History: suprapubic catheter, acute kidney injury, chronic UTI. tubulo-interstitial nephritis [employer] History: Reports: Musculoskeletal History: Reports: Back Pain, Chronic, Fracture Other Musculoskeletal History: paraplegic, 3 back surgeries. Most recent back surgery was in March of 2015. postlaminectomy syndrome; cramps; spasms'. 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 radiculopathy; restless leg syndrome Psychiatric History: Reports: Anxiety, Depression, Other (See Below) Other Psychiatric History: opioid dependence; insomnia Endocrine/Metabolic History: Reports: Hypothyroidism, Obesity/BMI 30+ Hematologic History: Reports: None Immunologic History: Reports: None Oncologic (Cancer) History: Reports: None Dermatologic History: Reports: Other (See Below) Other Dermatologic History: pressure ulcer to buttocks - Infectious Disease History Infectious Disease History: Reports: Chicken Pox, Measles, MRSA Other Infectious Disease History: hx mrsa in urine - Past Surgical History Head Surgeries/Procedures: Reports: Other (See Below) HEENT Surgical History: Reports: Oral Surgery, Tonsillectomy Other HEENT Surgeries/Procedures: recurrent oral aphthae Cardiovascular Surgical History: Reports: None Respiratory Surgical History: Reports: None GI Surgical History: Reports: None Female Surgical History: Reports: Hysterectomy, Suprapubic Catheter Placement Endocrine Surgical History: Reports: Thyroidectomy Neurological Surgical History: Reports: Lumbar Spine Oncologic Surgical History: Reports: None Social & Family History - Family History Family Medical History: Noncontributory - Tobacco Use Smoking Status *Q: Current Every Day Smoker Years of Tobacco use: 30 Packs/Tins Daily: 0.5 - Caffeine Use Caffeine Use: Reports: None - Recreational Drug Use Recreational Drug Use: No - Living Situation & Occupation Living situation: Reports: , with Significant Other (Boyfriend) Occupation: Disabled H&P Review of Systems - Review of Systems: Review Of Systems: ROS reveals no pertinent complaints other than HPI. Exam - Exam Exam: See Below - Vital Signs Vital Signs: Last Vital Signs Temp 36.7 C 03/25/19 14:43 Pulse 91 03/25/19 17:41 Resp 14 03/25/19 17:41 BP 138/82 03/25/19 17:41 Pulse Ox 84 L 03/25/19 18:17 Weight: 93.44 kg - Exam Quality Assessment: Supplemental Oxygen, Other General: Alert, Moderate Distress HEENT: Conjunctiva Clear, Pupils Equal, Pupils Reactive Neck: Supple, Trachea Midline Lungs: Decreased Breath Sounds, Wheezing Cardiovascular: Regular Rate, Regular Rhythm GI/Abdominal Exam: Normal Bowel Sounds, Soft, Non-Tender, No Organomegaly, No Distention, No Abnormal Bruit, No Mass (Female) Exam: Other (indwelling foleycather ) Rectal (Female) Exam: Deferred Back Exam: Other (deferred) Extremities: Normal Inspection, Non-Tender, No Pedal Edema, Normal Capillary Refill Peripheral Pulses: 2+: Posterior Tibial (L), Posterior Tibial (R), Dorsalis Pedis (L), Dorsalis Pedis (R) Skin: Warm, Dry, Intact Neuro Extensive - Mental Status: Alert, Normal Mood/Affect Neuro Extensive - Motor, Sensory, Reflexes: Other (Not appropraite due to respiratory failure and being on BIPAP; has baseline paraplegia/paralysis) Psychiatric: Alert, Normal Affect, Normal Mood - Patient Data Lab Results Last 24 hrs: Laboratory Results - last 24 hr 03/25/19 03/25/19 03/25/19 Range/Units 15:20 15:35 16:00 WBC 7.72 (3.98-10.04) K/mm3 RBC 6.21 H (3.98-5.22) M/mm3 Hgb 18.0 H D (11.2-15.7) gm/L Hct 58.6 H (34.1-44.9) % MCV 94.4 (79.4-94.8) fl MCH 29.0 (25.6-32.2) pg MCHC 30.7 L (32.2-35.5) g/dl RDW Std Deviation 53.5 H (36.4-46.3) fL Plt Count 102 L (182-369) K/mm3 MPV 10.7 (9.4-12.3) fl Neut % (Auto) 80.5 H (34.0-71.1) % Lymph % (Auto) 13.5 L (19.3-51.7) % [place] % (Auto) 5.3 (4.7-12.5) % Eos % (Auto) 0.3 L (0.7-5.8) Baso % (Auto) 0.1 (0.1-1.2) % Neut # (Auto) 6.22 H (1.56-6.13) K/mm3 Lymph # (Auto) 1.04 L (1.18-3.74) K/mm3 [place] # (Auto) 0.41 H (0.24-0.36) K/mm3 Eos # (Auto) 0.02 L (0.04-0.36) K/mm3 Baso # (Auto) 0.01 (0.01-0.08) K/mm3 Manual Slide Review Normal smear Sodium 148 H (136-145) mEq/L Potassium 4.8 (3.5-5.1) mEq/L Chloride 106 (98-107) mEq/L Carbon Dioxide 40 H (21-32) mEq/L Anion Gap 6.8 (5-15) BUN 12 (7-18) mg/dL Creatinine 0.9 (0.55-1.02) mg/dL Est Cr Clr Drug Dosing TNP Estimated GFR (MDRD) > 60 (>60) mL/min BUN/Creatinine Ratio 13.3 L (14-18) Glucose 99 (74-106) mg/dL Lactic Acid 2.1 H (0.4-2.0) mmol/L Calcium 9.1 (8.5-10.1) mg/dL Total Bilirubin 0.6 (0.2-1.0) mg/dL AST 18 (15-37) U/L ALT 26 (14-59) U/L Alkaline Phosphatase 164 H (46-116) U/L Total Protein 7.8 (6.4-8.2) g/dl Albumin 3.6 (3.4-5.0) g/dl Globulin 4.2 gm/dL Albumin/Globulin Ratio 0.9 L (1-2) Result Diagrams: 03/26/19 06:10 03/26/19 06:10 Problem List Initiated/Reviewed/Updated: Yes Orders Last 24hrs: Active Orders 24 hr Category Date Time Status Admission Status [Patient Status] [ADT] Routine ADT 03/25/19 17:23 Active Patient Status [ADT] Routine ADT 03/25/19 19:07 Active Peripheral IV Care [RC] Q2HR Care 03/25/19 14:40 Active RT Aerosol Therapy [RC] ASDIRECTED Care 03/25/19 14:40 Active Chest 1V Frontal [CR] Stat Exams 03/25/19 14:40 Taken ABG [BLOOD GAS ARTERIAL] [BG] Urgent Lab 03/25/19 18:47 Ordered CULTURE BLOOD [BC] Stat Lab 03/25/19 15:20 Received CULTURE BLOOD [BC] Stat Lab 03/25/19 15:35 Received UA W/MICROSCOPIC [URIN] Stat Lab 03/25/19 16:35 Ordered Sodium Chloride 0.9% [Saline Flush] Med 03/25/19 14:39 Active 10 ml FLUSH ASDIRECTED PRN Blood Culture x2 Reflex Set [OM.PC] Stat Oth 03/25/19 14:45 Ordered Peripheral IV Insertion Adult [OM.PC] Stat Oth 03/25/19 14:39 Ordered Medication Orders Sodium Chloride (Saline Flush) 10 ml FLUSH ASDIRECTED PRN PRN Reason: Keep Vein Open Last Admin: 03/25/19 16:09 Dose: 10 ml Assessment/Plan Comment:: Assessment: Acute: Respiratory Failure - Combined Hypoxic and Hypercapneic - Chronic Respiratory Failure with 2L Dependent - Acute on Chronic - Risk factors: COPD and Asthma - CXR shows no acute abnormal findings - ABG shows pH of 7.27, PO2 of 53, PCO2 of 77 and O2 Sat of 84% - Was on 5L --> 9L and now BIPAP COPD Exacerbation - IV Solumedrol, Bronchodilators, Smooth Muscle Relaxant, and Anti- inflammatory agent - Continue home dose Trelegy - RT to assess and treat UTI - 2/2 Catheter Related UTI (Suprapubic); changed at the end of Feb per nurse - Risk factors: Neurogenic Bladder with chronic indwelling catheter - UA is suggestive of UTI - IV Rocephin 1 gram daily - UA Cx/Sx Hypernatremia - Na of 148 - Monitor Lactic Acidosis - LA of 2.1 - Suspect 2/2 underlying infection - Serial LA to r/o early developing sepsis Class I Obesity - BMI of 30.4 - Advised LSM - Dietary consult for weight management Chronic: HTN, Chronic Respiratory Failure, COPD/Asthma, Constipation, Neurogenic Bladder, Recurrent UTI, Back Pain, Paraplegia S/p Surgery x3, Post Laminectomy Syndrome with Cramps and Spasm, Radiculopathy, Dorsalgia, Generalized Muscle Weakness, T6 and Distal Paralysis, Hx/o Arachnoiditis, Encephalopathy, Hx/o Right Frontal Ventriculostomy, RLS, Hypothyroidism, Hx/o Opioid Dependence, Insomnia, Anxiety, Depression and Obesity Class I. Plan: Admit to ICU Resume Some Home Meds Routine AM Labs Screen for Sepsis D-Dimer level IV Antibiotics Regular diet once off BIPAP Serial ABG and CXR as indicated Fall Precautions PT/OT to assess and treat RT to assess and treat SW/CM for d/c planning Code status: full Additional orders as above Prognosis guarded- serious
[2019-03-25] MEDS ORDERED: Polyethylene Glycol 3350 Powder 17 GM Packet PO PRN ×2 (19:44→21:59)
[2019-03-25] MEDS ORDERED: LORazepam 2 MG/ML SDV IV PRN (19:44)
[2019-03-25] MEDS ORDERED: Docusate Sodium 100 MG Cap PO PRN (19:44)
[2019-03-25] MEDS ORDERED: Bisacodyl 5 MG Tab PO PRN (19:44)
[2019-03-25] MEDS ORDERED: Promethazine 6.25 MG in Sodium Chloride 0.9% 50 ML IV PRN (19:44)
[2019-03-25] MEDS ORDERED: HYDROmorphone 0.5 MG/0.5 ML Syringe IVPUSH PRN (19:44)
[2019-03-25] MEDS ORDERED: Ondansetron 4 MG/2 ML SDV IV PRN (19:44)
[2019-03-25] MEDS ORDERED: Acetaminophen 325 MG Tab PO PRN ×2 (19:44→21:59)
[2019-03-25] MEDS ORDERED: Temazepam 7.5 MG Cap PO PRN (19:44)
[2019-03-25] MEDS ORDERED: Morphine 2 MG/ML Syringe IVPUSH PRN (19:53)
[2019-03-25] MEDS ORDERED: Lactated Ringers 1,000 ML IV ONE ×2 (19:54→22:14)
[2019-03-25] MEDS: Albuterol/Ipratropium 3.0-0.5 MG/3 ML Neb Soln NEB SCH (20:47)
[2019-03-25] MEDS: Pantoprazole 40 MG Vial IV SCH (20:53)
[2019-03-25] MEDS ORDERED: Non-Formulary Medication 1 Each (Trolamine Salicylate/Aloe Vera 1 APPLIC) TRDERM PRN (21:59)
[2019-03-25] MEDS ORDERED: SUMAtriptan 50 MG Tab PO PRN (21:59)
[2019-03-25] MEDS ORDERED: NA PHOS DI B RECTAL PRN (21:59)
[2019-03-25] MEDS ORDERED: Ondansetron 4 MG Tab.DIS PO PRN (21:59)
[2019-03-25] MEDS ORDERED: Loperamide 2 MG Cap PO PRN (21:59)
[2019-03-25] MEDS ORDERED: Magnesium Citrate Solution 296 ML Bottle PO PRN (21:59)
[2019-03-25] MEDS ORDERED: Bisacodyl 10 MG Supp RECTAL PRN (21:59)
[2019-03-25] MEDS ORDERED: NA PHOS M B RECTAL PRN (21:59)
[2019-03-25] MEDS ORDERED: Aluminum Hydroxide/Magnesium Hydroxide/Simethicone Susp 30 ML Cup PO PRN (21:59)
[2019-03-25] MEDS ORDERED: Aloe Vera/Sodium Chloride Gel 14.1 GM Tube NAS PRN (21:59)
[2019-03-25] MEDS ORDERED: cefTRIAXone 1 GM in Sodium Chloride 0.9% 100 ML IV SCH (22:00)
[2019-03-25] MEDS ORDERED: Non-Formulary Medication 1 Each (Naloxone Hcl [Narcan] 4 MG) NAS SCH (22:00)
[2019-03-25] MEDS ORDERED: Lactated Ringers 500 ML IV ONE (22:57)
[2019-03-25] MEDS ORDERED: 50% Dextrose in Water 50 ML Syringe IVPUSH PRN (22:58)
[2019-03-25] MEDS ORDERED: Sodium Chloride 0.45% 1,000 ML IV SCH (23:00)
[2019-03-26] MEDS ORDERED: Vancomycin 2 GM in Sodium Chloride 0.9% 500 ML IV ONE ×2
[2019-03-26] MEDS ORDERED: methylPREDNISolone Sodium Succinate 125 MG/2 ML SDV IVPUSH SCH
[2019-03-26] MEDS ORDERED: Lactated Ringers 1,000 ML IV ONE ×2 (00:15→09:39)
[2019-03-26] MEDS: Hydrocortisone Sodium Succinate 100 MG/2 ML SDV IVPUSH SCH ×3 (00:46→16:10)
[2019-03-26] MEDS: Enoxaparin 40 MG/0.4 ML Syringe SUBCUT SCH ×2 (00:46→08:30)
[2019-03-26] MEDS ORDERED: Piperacillin/Tazobactam 4.5 GM in Sodium Chloride 0.9% 100 ML IV ONE (01:00)
[2019-03-26] MEDS ORDERED: Sodium Chloride 0.45% 1,000 ML IV SCH (01:19)
[2019-03-26] MEDS ORDERED: Norepinephrine 4 MG in Dextrose 5% in Water 246 ML IV SCH ×2 (01:30)
[2019-03-26] MEDS: Albuterol/Ipratropium 3.0-0.5 MG/3 ML Neb Soln NEB SCH ×2 (05:53→20:19)
--- NOTE | 2019-03-26 05:58 | CR ---
Chest: Portable view of the chest was obtained. Comparison: Prior chest x-ray of 01/19/19. Heart size and mediastinum are within normal limits for portable technique. Lungs are clear with no acute parenchymal change. No acute bony abnormality is seen. Impression: 1. Nothing acute is appreciated on portable chest x-ray. Diagnostic code #1
[2019-03-26] MEDS: Levothyroxine 150 MCG Tab PO SCH (06:08)
[2019-03-26] MEDS: Insulin Lispro 100 Units/ML 3 ML Vial SUBCUT SCH ×4 (06:36→21:27)
[2019-03-26] MEDS ORDERED: SUMAtriptan 50 MG Tab PO PRN (07:30)
[2019-03-26] MEDS ORDERED: Sodium Chloride 0.65% Nasal Spray 45 ML Bottle NAS PRN (07:30)
[2019-03-26] MEDS ORDERED: Magnesium Sulfate/Water 2 GM in Premix Bag 1 BAG IV ONE (08:00)
[2019-03-26] MEDS ORDERED: Lactated Ringers 500 ML IV ONE (08:00)
--- NOTE | 2019-03-26 08:09 | CR ---
Chest: Portable view of the chest was obtained. Comparison: Prior chest x-ray of 03/25/19. Heart size appears within normal limits for portable technique. Tortuous thoracic aorta is noted. Minimal atelectasis is noted within the right lung base. Lungs otherwise are clear with no acute parenchymal change. Bony structures are grossly intact. Impression: 1. Minimal atelectasis within the right base is noted. 2. Nothing acute is otherwise seen on portable chest x-ray. Diagnostic code #2
[2019-03-26] MEDS: Multivitamins,Therapeutic Tab PO SCH (08:30)
[2019-03-26] MEDS: Pregabalin 75 MG Cap PO SCH ×3 (08:30→20:45)
[2019-03-26] MEDS: Pantoprazole 40 MG Vial IV SCH (08:31)
[2019-03-26] MEDS: DULoxetine 30 MG Cap PO SCH (08:33)
[2019-03-26] MEDS: Piperacillin/Tazobactam 4.5 GM in Sodium Chloride 0.9% 100 ML IV SCH ×2 (08:45→17:18)
[2019-03-26 08:47] LABS: VITAMIN D,25-HYDROXY 29.4 ng/ml (30.0-100.0)
[2019-03-26] MEDS ORDERED: Levofloxacin/Dextrose 5%-Water 750 MG in Premix Bag 1 BAG IV SCH (09:00)
[2019-03-26] MEDS ORDERED: ALPHA LIPOIC ACID 300 MG PO SCH (09:00)
[2019-03-26] MEDS ORDERED: FLUTICASONE PO SCH (09:00)
[2019-03-26] MEDS ORDERED: VILANTER PO SCH (09:00)
[2019-03-26] MEDS ORDERED: UMECLIDIN PO SCH (09:00)
[2019-03-26] MEDS: VILANTER PO SCH (09:33)
[2019-03-26] MEDS: FLUTICASONE PO SCH (09:33)
[2019-03-26] MEDS: UMECLIDIN PO SCH (09:33)
[2019-03-26] MEDS: Nicotine 21 MG/24 Hr Patch TRDERM SCH (10:00)
--- NOTE | 2019-03-26 11:21 | PCM.PN ---
<Ayo Murillo - Last Filed: 03/26/19 14:26> - General Info Date of Service: 03/26/19 Admission Dx/Problem (Free Text): Admission Diagnosis/Problem Admission Diagnosis/Problem Hypoxia Subjective Update: Patient is sitting in her bedside chair eating breakfast during rounds today. Patient states she is feeling better today. She states her breathing continues to be labored. Nursing reports that she is on Bipap continuously except when eating. When eating she is on 4L via nasal cannula. Patient reports that she is in pain "all over." She rates this pain 10/10 in severity. Pain Score: 10 - Review of Systems General: Denies: Fever, Chills HEENT: Reports: No Symptoms Pulmonary: Reports: Shortness of Breath Cardiovascular: Reports: No Symptoms Gastrointestinal: Reports: No Symptoms Genitourinary: Reports: No Symptoms Musculoskeletal: Reports: No Symptoms Skin: Reports: No Symptoms Neurological: Reports: No Symptoms Psychiatric: Reports: No Symptoms - Patient Data Vitals - Most Recent: Last Vital Signs Temp 98.9 F 03/26/19 08:00 Pulse 97 03/26/19 08:00 Resp 16 03/26/19 08:00 BP 129/78 03/26/19 08:00 Pulse Ox 95 03/26/19 05:54 Weight - Most Recent: 101.65 kg I&O - Last 24 Hours: Intake & Output 03/25/19 03/26/19 03/26/19 22:59 06:59 14:59 Intake Total 4912 120 Output Total 550 700 600 Balance -550 4212 -480 Lab Results Last 24 Hours: Laboratory Results - last 24 hr 03/25/19 03/25/19 03/25/19 Range/Units 15:20 15:20 15:35 WBC 7.72 (3.98-10.04) K/mm3 RBC 6.21 H (3.98-5.22) M/mm3 Hgb 18.0 H D (11.2-15.7) gm/L Hct 58.6 H (34.1-44.9) % MCV 94.4 (79.4-94.8) fl MCH 29.0 (25.6-32.2) pg MCHC 30.7 L (32.2-35.5) g/dl RDW Std Deviation 53.5 H (36.4-46.3) fL Plt Count 102 L (182-369) K/mm3 MPV 10.7 (9.4-12.3) fl Neut % (Auto) 80.5 H (34.0-71.1) % Lymph % (Auto) 13.5 L (19.3-51.7) % Taylor % (Auto) 5.3 (4.7-12.5) % Eos % (Auto) 0.3 L (0.7-5.8) Baso % (Auto) 0.1 (0.1-1.2) % Neut # (Auto) 6.22 H (1.56-6.13) K/mm3 Lymph # (Auto) 1.04 L (1.18-3.74) K/mm3 Taylor # (Auto) 0.41 H (0.24-0.36) K/mm3 Eos # (Auto) 0.02 L (0.04-0.36) K/mm3 Baso # (Auto) 0.01 (0.01-0.08) K/mm3 Manual Slide Review Normal smear D-Dimer, Quantitative (0.19-0.50) mg/L Puncture Site ABG pH (7.35-7.45) ABG pCO2 (35.0-45.0) mmHg ABG pO2 (80.0-100.0) mmHg ABG HCO3 (22.0-26.0) meq/L ABG O2 Saturation (96.0-97.0) % ABG Base Excess (-2-2.0) Ja Test A-a Gradient mmHg O2 Delivery Device Oxygen Flow Rate FiO2 (21.00-100.00) % Sodium 148 H (136-145) mEq/L Potassium 4.8 (3.5-5.1) mEq/L Chloride 106 (98-107) mEq/L Carbon Dioxide 40 H (21-32) mEq/L Anion Gap 6.8 (5-15) BUN 12 (7-18) mg/dL Creatinine 0.9 (0.55-1.02) mg/dL Est Cr Clr Drug Dosing TNP Estimated GFR (MDRD) > 60 (>60) mL/min BUN/Creatinine Ratio 13.3 L (14-18) Glucose 99 (74-106) mg/dL POC Glucose (70-105) mg/dL Lactic Acid (0.4-2.0) mmol/L Calcium 9.1 (8.5-10.1) mg/dL Magnesium (1.8-2.4) mg/dl Total Bilirubin 0.6 (0.2-1.0) mg/dL AST 18 (15-37) U/L ALT 26 (14-59) U/L Alkaline Phosphatase 164 H (46-116) U/L C-Reactive Protein 3.7 H* (<1.0) mg/dL Total Protein 7.8 (6.4-8.2) g/dl Albumin 3.6 (3.4-5.0) g/dl Globulin 4.2 gm/dL Albumin/Globulin Ratio 0.9 L (1-2) Vitamin D 25-Hydroxy (30.0-100.0) ng/ml Free T4 (0.76-1.46) ng/dL TSH 3rd Generation (0.358-3.74) uIU/mL Urine Color (Yellow) Urine Appearance (Clear) Urine pH (5.0-8.0) Ur Specific [place] (1.005-1.030) Urine Protein (Negative) Urine Glucose (UA) (Negative) Urine Ketones (Negative) Urine Occult Blood (Negative) Urine Nitrite (Negative) Urine Bilirubin (Negative) Urine Urobilinogen (0.2-1.0) Ur Leukocyte Esterase (Negative) Urine RBC (0-5) /hpf Urine WBC (0-5) /hpf Ur Squamous Epith Cells (0-5) /hpf Urine Bacteria (FEW) /hpf Urine Mucus (FEW) /hpf MRSA (PCR) 03/25/19 03/25/19 03/25/19 Range/Units 16:00 18:36 21:08 WBC (3.98-10.04) K/mm3 RBC (3.98-5.22) M/mm3 Hgb (11.2-15.7) gm/L Hct (34.1-44.9) % MCV (79.4-94.8) fl MCH (25.6-32.2) pg MCHC (32.2-35.5) g/dl RDW Std Deviation (36.4-46.3) fL Plt Count (182-369) K/mm3 MPV (9.4-12.3) fl Neut % (Auto) (34.0-71.1) % Lymph % (Auto) (19.3-51.7) % Taylor % (Auto) (4.7-12.5) % Eos % (Auto) (0.7-5.8) Baso % (Auto) (0.1-1.2) % Neut # (Auto) (1.56-6.13) K/mm3 Lymph # (Auto) (1.18-3.74) K/mm3 Taylor # (Auto) (0.24-0.36) K/mm3 Eos # (Auto) (0.04-0.36) K/mm3 Baso # (Auto) (0.01-0.08) K/mm3 Manual Slide Review D-Dimer, Quantitative (0.19-0.50) mg/L Puncture Site Lt radial ABG pH 7.27 L (7.35-7.45) ABG pCO2 77.6 H* (35.0-45.0) mmHg ABG pO2 53.0 L (80.0-100.0) mmHg ABG HCO3 34.7 H (22.0-26.0) meq/L ABG O2 Saturation 84.2 L (96.0-97.0) % ABG Base Excess 4.3 H (-2-2.0) Ja Test Positive A-a Gradient 136 mmHg O2 Delivery Device Nasal cannula Oxygen Flow Rate 5.0 FiO2 40.00 (21.00-100.00) % Sodium (136-145) mEq/L Potassium (3.5-5.1) mEq/L Chloride (98-107) mEq/L Carbon Dioxide (21-32) mEq/L Anion Gap (5-15) BUN (7-18) mg/dL Creatinine (0.55-1.02) mg/dL Est Cr Clr Drug Dosing Estimated GFR (MDRD) (>60) mL/min BUN/Creatinine Ratio (14-18) Glucose (74-106) mg/dL POC Glucose (70-105) mg/dL Lactic Acid 2.1 H (0.4-2.0) mmol/L Calcium (8.5-10.1) mg/dL Magnesium (1.8-2.4) mg/dl Total Bilirubin (0.2-1.0) mg/dL AST (15-37) U/L ALT (14-59) U/L Alkaline Phosphatase (46-116) U/L C-Reactive Protein (<1.0) mg/dL Total Protein (6.4-8.2) g/dl Albumin (3.4-5.0) g/dl Globulin gm/dL Albumin/Globulin Ratio (1-2) Vitamin D 25-Hydroxy (30.0-100.0) ng/ml Free T4 (0.76-1.46) ng/dL TSH 3rd Generation (0.358-3.74) uIU/mL Urine Color (Yellow) Urine Appearance (Clear) Urine pH (5.0-8.0) Ur Specific [place] (1.005-1.030) Urine Protein (Negative) Urine Glucose (UA) (Negative) Urine Ketones (Negative) Urine Occult Blood (Negative) Urine Nitrite (Negative) Urine Bilirubin (Negative) Urine Urobilinogen (0.2-1.0) Ur Leukocyte Esterase (Negative) Urine RBC (0-5) /hpf Urine WBC (0-5) /hpf Ur Squamous Epith Cells (0-5) /hpf Urine Bacteria (FEW) /hpf Urine Mucus (FEW) /hpf MRSA (PCR) Negative 03/25/19 03/25/19 03/25/19 Range/Units 21:40 22:15 22:15 WBC (3.98-10.04) K/mm3 RBC (3.98-5.22) M/mm3 Hgb (11.2-15.7) gm/L Hct (34.1-44.9) % MCV (79.4-94.8) fl MCH (25.6-32.2) pg MCHC (32.2-35.5) g/dl RDW Std Deviation (36.4-46.3) fL Plt Count (182-369) K/mm3 MPV (9.4-12.3) fl Neut % (Auto) (34.0-71.1) % Lymph % (Auto) (19.3-51.7) % Taylor % (Auto) (4.7-12.5) % Eos % (Auto) (0.7-5.8) Baso % (Auto) (0.1-1.2) % Neut # (Auto) (1.56-6.13) K/mm3 Lymph # (Auto) (1.18-3.74) K/mm3 Taylor # (Auto) (0.24-0.36) K/mm3 Eos # (Auto) (0.04-0.36) K/mm3 Baso # (Auto) (0.01-0.08) K/mm3 Manual Slide Review D-Dimer, Quantitative (0.19-0.50) mg/L Puncture Site ABG pH (7.35-7.45) ABG pCO2 (35.0-45.0) mmHg ABG pO2 (80.0-100.0) mmHg ABG HCO3 (22.0-26.0) meq/L ABG O2 Saturation (96.0-97.0) % ABG Base Excess (-2-2.0) Ja Test A-a Gradient mmHg O2 Delivery Device Oxygen Flow Rate FiO2 (21.00-100.00) % Sodium 146 H (136-145) mEq/L Potassium 4.2 (3.5-5.1) mEq/L Chloride 107 (98-107) mEq/L Carbon Dioxide 36 H (21-32) mEq/L Anion Gap 7.2 (5-15) BUN 14 (7-18) mg/dL Creatinine 1.1 H (0.55-1.02) mg/dL Est Cr Clr Drug Dosing 60.39 Estimated GFR (MDRD) 52 (>60) mL/min BUN/Creatinine Ratio 12.7 L (14-18) Glucose 193 H (74-106) mg/dL POC Glucose (70-105) mg/dL Lactic Acid 3.3 H (0.4-2.0) mmol/L Calcium 8.5 (8.5-10.1) mg/dL Magnesium (1.8-2.4) mg/dl Total Bilirubin (0.2-1.0) mg/dL AST (15-37) U/L ALT (14-59) U/L Alkaline Phosphatase (46-116) U/L C-Reactive Protein (<1.0) mg/dL Total Protein (6.4-8.2) g/dl Albumin (3.4-5.0) g/dl Globulin gm/dL Albumin/Globulin Ratio (1-2) Vitamin D 25-Hydroxy (30.0-100.0) ng/ml Free T4 (0.76-1.46) ng/dL TSH 3rd Generation (0.358-3.74) uIU/mL Urine Color Dark yellow (Yellow) Urine Appearance Slt cloudy H (Clear) Urine pH 6.0 (5.0-8.0) Ur Specific [place] 1.025 (1.005-1.030) Urine Protein Trace H (Negative) Urine Glucose (UA) Negative (Negative) Urine Ketones Trace H (Negative) Urine Occult Blood 2+ H (Negative) Urine Nitrite Positive H (Negative) Urine Bilirubin 1+ H (Negative) Urine Urobilinogen 2.0 H (0.2-1.0) Ur Leukocyte Esterase 1+ H (Negative) Urine RBC 10-20 H (0-5) /hpf Urine WBC 20-30 H (0-5) /hpf Ur Squamous Epith Cells 5-10 H (0-5) /hpf Urine Bacteria Few (FEW) /hpf Urine Mucus Few (FEW) /hpf MRSA (PCR) 03/25/19 03/26/19 03/26/19 Range/Units 22:30 02:10 06:10 WBC 6.78 (3.98-10.04) K/mm3 RBC 5.03 (3.98-5.22) M/mm3 Hgb 14.8 D (11.2-15.7) gm/L Hct 46.8 H (34.1-44.9) % MCV 93.0 (79.4-94.8) fl MCH 29.4 (25.6-32.2) pg MCHC 31.6 L (32.2-35.5) g/dl RDW Std Deviation 51.5 H (36.4-46.3) fL Plt Count 118 L (182-369) K/mm3 MPV 11.3 (9.4-12.3) fl Neut % (Auto) 89.8 H (34.0-71.1) % Lymph % (Auto) 7.8 L (19.3-51.7) % Taylor % (Auto) 2.1 L (4.7-12.5) % Eos % (Auto) 0 L (0.7-5.8) Baso % (Auto) 0.0 L (0.1-1.2) % Neut # (Auto) 6.09 (1.56-6.13) K/mm3 Lymph # (Auto) 0.53 L (1.18-3.74) K/mm3 Taylor # (Auto) 0.14 L (0.24-0.36) K/mm3 Eos # (Auto) 0.00 L (0.04-0.36) K/mm3 Baso # (Auto) 0.00 L (0.01-0.08) K/mm3 Manual Slide Review Abnormal smear D-Dimer, Quantitative 0.32 (0.19-0.50) mg/L Puncture Site ABG pH (7.35-7.45) ABG pCO2 (35.0-45.0) mmHg ABG pO2 (80.0-100.0) mmHg ABG HCO3 (22.0-26.0) meq/L ABG O2 Saturation (96.0-97.0) % ABG Base Excess (-2-2.0) Ja Test A-a Gradient mmHg O2 Delivery Device Oxygen Flow Rate FiO2 (21.00-100.00) % Sodium (136-145) mEq/L Potassium (3.5-5.1) mEq/L Chloride (98-107) mEq/L Carbon Dioxide (21-32) mEq/L Anion Gap (5-15) BUN (7-18) mg/dL Creatinine (0.55-1.02) mg/dL Est Cr Clr Drug Dosing Estimated GFR (MDRD) (>60) mL/min BUN/Creatinine Ratio (14-18) Glucose (74-106) mg/dL POC Glucose (70-105) mg/dL Lactic Acid 3.4 H (0.4-2.0) mmol/L Calcium (8.5-10.1) mg/dL Magnesium (1.8-2.4) mg/dl Total Bilirubin (0.2-1.0) mg/dL AST (15-37) U/L ALT (14-59) U/L Alkaline Phosphatase (46-116) U/L C-Reactive Protein (<1.0) mg/dL Total Protein (6.4-8.2) g/dl Albumin (3.4-5.0) g/dl Globulin gm/dL Albumin/Globulin Ratio (1-2) Vitamin D 25-Hydroxy (30.0-100.0) ng/ml Free T4 (0.76-1.46) ng/dL TSH 3rd Generation (0.358-3.74) uIU/mL Urine Color (Yellow) Urine Appearance (Clear) Urine pH (5.0-8.0) Ur Specific [place] (1.005-1.030) Urine Protein (Negative) Urine Glucose (UA) (Negative) Urine Ketones (Negative) Urine Occult Blood (Negative) Urine Nitrite (Negative) Urine Bilirubin (Negative) Urine Urobilinogen (0.2-1.0) Ur Leukocyte Esterase (Negative) Urine RBC (0-5) /hpf Urine WBC (0-5) /hpf Ur Squamous Epith Cells (0-5) /hpf Urine Bacteria (FEW) /hpf Urine Mucus (FEW) /hpf MRSA (PCR) 03/26/19 03/26/19 03/26/19 Range/Units 06:10 06:10 06:12 WBC (3.98-10.04) K/mm3 RBC (3.98-5.22) M/mm3 Hgb (11.2-15.7) gm/L Hct (34.1-44.9) % MCV (79.4-94.8) fl MCH (25.6-32.2) pg MCHC (32.2-35.5) g/dl RDW Std Deviation (36.4-46.3) fL Plt Count (182-369) K/mm3 MPV (9.4-12.3) fl Neut % (Auto) (34.0-71.1) % Lymph % (Auto) (19.3-51.7) % Taylor % (Auto) (4.7-12.5) % Eos % (Auto) (0.7-5.8) Baso % (Auto) (0.1-1.2) % Neut # (Auto) (1.56-6.13) K/mm3 Lymph # (Auto) (1.18-3.74) K/mm3 Taylor # (Auto) (0.24-0.36) K/mm3 Eos # (Auto) (0.04-0.36) K/mm3 Baso # (Auto) (0.01-0.08) K/mm3 Manual Slide Review D-Dimer, Quantitative (0.19-0.50) mg/L Puncture Site ABG pH (7.35-7.45) ABG pCO2 (35.0-45.0) mmHg ABG pO2 (80.0-100.0) mmHg ABG HCO3 (22.0-26.0) meq/L ABG O2 Saturation (96.0-97.0) % ABG Base Excess (-2-2.0) Ja Test A-a Gradient mmHg O2 Delivery Device Oxygen Flow Rate FiO2 (21.00-100.00) % Sodium 143 (136-145) mEq/L Potassium 4.4 (3.5-5.1) mEq/L Chloride 106 (98-107) mEq/L Carbon Dioxide 31 (21-32) mEq/L Anion Gap 10.4 (5-15) BUN 13 (7-18) mg/dL Creatinine 0.8 (0.55-1.02) mg/dL Est Cr Clr Drug Dosing 83.04 Estimated GFR (MDRD) > 60 (>60) mL/min BUN/Creatinine Ratio 16.3 (14-18) Glucose 134 H (74-106) mg/dL POC Glucose 117 H (70-105) mg/dL Lactic Acid 2.7 H (0.4-2.0) mmol/L Calcium 8.4 L (8.5-10.1) mg/dL Magnesium 1.7 L (1.8-2.4) mg/dl Total Bilirubin (0.2-1.0) mg/dL AST (15-37) U/L ALT (14-59) U/L Alkaline Phosphatase (46-116) U/L C-Reactive Protein 6.2 H* (<1.0) mg/dL Total Protein (6.4-8.2) g/dl Albumin (3.4-5.0) g/dl Globulin gm/dL Albumin/Globulin Ratio (1-2) Vitamin D 25-Hydroxy 29.4 L (30.0-100.0) ng/ml Free T4 1.09 (0.76-1.46) ng/dL TSH 3rd Generation 0.137 L (0.358-3.74) uIU/mL Urine Color (Yellow) Urine Appearance (Clear) Urine pH (5.0-8.0) Ur Specific [place] (1.005-1.030) Urine Protein (Negative) Urine Glucose (UA) (Negative) Urine Ketones (Negative) Urine Occult Blood (Negative) Urine Nitrite (Negative) Urine Bilirubin (Negative) Urine Urobilinogen (0.2-1.0) Ur Leukocyte Esterase (Negative) Urine RBC (0-5) /hpf Urine WBC (0-5) /hpf Ur Squamous Epith Cells (0-5) /hpf Urine Bacteria (FEW) /hpf Urine Mucus (FEW) /hpf MRSA (PCR) 03/26/19 Range/Units 07:22 WBC (3.98-10.04) K/mm3 RBC (3.98-5.22) M/mm3 Hgb (11.2-15.7) gm/L Hct (34.1-44.9) % MCV (79.4-94.8) fl MCH (25.6-32.2) pg MCHC (32.2-35.5) g/dl RDW Std Deviation (36.4-46.3) fL Plt Count (182-369) K/mm3 MPV (9.4-12.3) fl Neut % (Auto) (34.0-71.1) % Lymph % (Auto) (19.3-51.7) % Taylor % (Auto) (4.7-12.5) % Eos % (Auto) (0.7-5.8) Baso % (Auto) (0.1-1.2) % Neut # (Auto) (1.56-6.13) K/mm3 Lymph # (Auto) (1.18-3.74) K/mm3 Taylor # (Auto) (0.24-0.36) K/mm3 Eos # (Auto) (0.04-0.36) K/mm3 Baso # (Auto) (0.01-0.08) K/mm3 Manual Slide Review D-Dimer, Quantitative (0.19-0.50) mg/L Puncture Site Lt radial ABG pH 7.31 L (7.35-7.45) ABG pCO2 65.2 H (35.0-45.0) mmHg ABG pO2 58.0 L (80.0-100.0) mmHg ABG HCO3 32.0 H (22.0-26.0) meq/L ABG O2 Saturation 89.1 L (96.0-97.0) % ABG Base Excess 4.0 H (-2-2.0) Ja Test Positive A-a Gradient 147 mmHg O2 Delivery Device Bipap 12/8 Oxygen Flow Rate FiO2 40.00 (21.00-100.00) % Sodium (136-145) mEq/L Potassium (3.5-5.1) mEq/L Chloride (98-107) mEq/L Carbon Dioxide (21-32) mEq/L Anion Gap (5-15) BUN (7-18) mg/dL Creatinine (0.55-1.02) mg/dL Est Cr Clr Drug Dosing Estimated GFR (MDRD) (>60) mL/min BUN/Creatinine Ratio (14-18) Glucose (74-106) mg/dL POC Glucose (70-105) mg/dL Lactic Acid (0.4-2.0) mmol/L Calcium (8.5-10.1) mg/dL Magnesium (1.8-2.4) mg/dl Total Bilirubin (0.2-1.0) mg/dL AST (15-37) U/L ALT (14-59) U/L Alkaline Phosphatase (46-116) U/L C-Reactive Protein (<1.0) mg/dL Total Protein (6.4-8.2) g/dl Albumin (3.4-5.0) g/dl Globulin gm/dL Albumin/Globulin Ratio (1-2) Vitamin D 25-Hydroxy (30.0-100.0) ng/ml Free T4 (0.76-1.46) ng/dL TSH 3rd Generation (0.358-3.74) uIU/mL Urine Color (Yellow) Urine Appearance (Clear) Urine pH (5.0-8.0) Ur Specific [place] (1.005-1.030) Urine Protein (Negative) Urine Glucose (UA) (Negative) Urine Ketones (Negative) Urine Occult Blood (Negative) Urine Nitrite (Negative) Urine Bilirubin (Negative) Urine Urobilinogen (0.2-1.0) Ur Leukocyte Esterase (Negative) Urine RBC (0-5) /hpf Urine WBC (0-5) /hpf Ur Squamous Epith Cells (0-5) /hpf Urine Bacteria (FEW) /hpf Urine Mucus (FEW) /hpf MRSA (PCR) Bishnu Results Last 24 Hours: Microbiology 03/25/19 21:40 Urine Culture - Preliminary Urine, Catheterized Gram Negative Rods 03/25/19 15:35 Anaerobic Blood Culture - Final Blood - Venous - Lab Draw Med Orders - Current: Current Medications Acetaminophen (Tylenol) 650 mg PO Q4H PRN PRN Reason: Pain (Mild 1-3)/fever Hydrocodone Bitart/Acetaminophen (Sig[place] 325-5 Mg) 1 tab PO Q4H PRN PRN Reason: Pain (moderate 4-6) Al Hydroxide/Mg Hydroxide (Mag-Al Plus) 30 ml PO Q4H PRN PRN Reason: Gas Albuterol/Ipratropium (Duoneb 3.0-0.5 Mg/3 Ml) 3 ml NEB Q4H PRN PRN Reason: Shortness Of Breath/wheezing Albuterol/Ipratropium (Duoneb 3.0-0.5 Mg/3 Ml) 3 ml NEB BIDRT [facility] Last Admin: 03/26/19 05:53 Dose: 3 ml Bisacodyl (Dulcolax) 5 mg PO DAILY PRN PRN Reason: Constipation Bisacodyl (Dulcolax) 10 mg RECTAL DAILY PRN PRN Reason: Constipation Dextrose/Water (Dextrose 50% In Water) 50 ml IVPUSH ASDIRECTED PRN PRN Reason: Hypoglycemia Docusate Sodium (Colace) 100 mg PO BID PRN PRN Reason: Constipation Duloxetine HCl (Cymbalta) 60 mg PO DAILY [facility] Last Admin: 03/26/19 08:33 Dose: 60 mg Enoxaparin Sodium (Lovenox) 40 mg SUBCUT DAILY [facility] Last Admin: 03/26/19 08:30 Dose: 40 mg Hydrocortisone Sodium Succinate (Solu-Cortef) 100 mg IVPUSH Q8H [facility] Last Admin: 03/26/19 08:29 Dose: 100 mg Hydromorphone HCl (Dilaudid) 0.5 mg IVPUSH Q2H PRN PRN Reason: Pain (severe 7-10) Promethazine HCl 6.25 mg/ (Sodium Chloride) 50.25 mls @ 100 mls/hr IV Q6H PRN PRN Reason: Nausea/Vomiting Piperacillin Sod/Tazobactam (Sod 4.5 gm/ Sodium Chloride) 100 mls @ 25 mls/hr IV Q8H [facility] Last Admin: 03/26/19 08:45 Dose: 25 mls/hr Norepinephrine Bitartrate 4 mg (/ Dextrose/Water) 250 mls @ 7.5 mls/hr IV TITRATE [facility]; Protocol Sodium Chloride (Sodium Chloride 0.45%) 1,000 mls @ 150 mls/hr IV ASDIRECTED [facility] Last Admin: 03/26/19 01:30 Dose: 150 mls/hr Vancomycin HCl 1 gm/Vancomycin HCl 500 mg/ Sodium Chloride 500 mls @ 250 mls/ hr IV Q12H [facility] Levofloxacin/Dextrose 750 mg/ (Premix) 150 mls @ 100 mls/hr IV Q24H [facility] Lactated Ringer's (Ringers, Lactated) 1,000 mls @ 125 mls/hr IV ASDIRECTED ONE Stop: 03/26/19 17:38 Last Admin: 03/26/19 09:10 Dose: 125 mls/hr Insulin Human Lispro (Humalog) 0 unit SUBCUT QIDACANDBED [facility]; Protocol Last Admin: 03/26/19 06:36 Dose: Not Given Levothyroxine Sodium (Levothyroxine) 150 mcg PO ACBREAKFAST [facility] Last Admin: 03/26/19 06:08 Dose: 150 mcg Loperamide HCl (Imodium) 4 mg PO TID PRN PRN Reason: Diarrhea Lorazepam (Ativan) 1 mg IV Q6H PRN PRN Reason: Anxiety Lorazepam (Ativan) 0.5 mg PO BEDTIME [facility] Magnesium Citrate (Citrate Of Magnesia) 150 ml PO BID PRN PRN Reason: Constipation Melatonin (Melatonin) 9 mg PO BEDTIME [facility] Morphine Sulfate (Morphine) 1 mg IVPUSH Q4H PRN PRN Reason: Dyspnea Multivitamins (Thera) 1 each PO DAILY [facility] Last Admin: 03/26/19 08:30 Dose: 1 each Ondansetron HCl (Zofran) 4 mg IV Q6H PRN PRN Reason: Nausea/Vomiting Ondansetron HCl (Zofran Odt) 4 mg PO TID PRN PRN Reason: Nausea Oxycodone HCl (Oxycodone) 5 mg PO Q8H PRN PRN Reason: Pain Pantoprazole Sodium (Protonix) 40 mg PO BID [facility] Fluticasone/Umeclidin/Vilanter 1 Inh Ptom 0 each PO 0600 [facility] Last Admin: 03/26/19 09:33 Dose: Not Given Polyethylene Glycol (Miralax) 17 gm PO DAILY PRN PRN Reason: Constipation Pregabalin (Lyrica) 150 mg PO TID [facility] Last Admin: 03/26/19 08:30 Dose: 150 mg Senna/Docusate Sodium (Senna Plus) 1 tab PO BID PRN PRN Reason: Constipation Sodium Chloride (Saline Flush) 10 ml FLUSH ASDIRECTED PRN PRN Reason: Keep Vein Open Last Admin: 03/25/19 16:09 Dose: 10 ml Sodium Chloride ([place] Nasal [place]) 0 ml DEMETRI DAILY PRN PRN Reason: Dryness Sumatriptan Succinate (Imitrex) 100 mg PO ASDIRECTED PRN PRN Reason: MIGRAINE Temazepam (Restoril) 7.5 mg PO BEDTIME PRN PRN Reason: Sleep Vancomycin HCl (Pharmacy To Dose - Vancomycin) 0 dose .XX ASDIRECTED PRN PRN Reason: RX TO DOSE VANCO Discontinued Medications Acetaminophen (Tylenol) 650 mg PO Q4H PRN PRN Reason: Pain Albuterol/Ipratropium (Duoneb 3.0-0.5 Mg/3 Ml) 3 ml NEB ONETIME ONE Stop: 03/25/19 14:41 Last Admin: 03/25/19 15:02 Dose: 3 ml Albuterol/Ipratropium (Duoneb 3.0-0.5 Mg/3 Ml) Confirm Administered Dose 3 ml .ROUTE .STK-MED ONE Stop: 03/25/19 18:14 Last Admin: 03/25/19 18:17 Dose: 3 ml Azithromycin 500 mg/ Sodium (Chloride) 250 mls @ 250 mls/hr IV ONETIME ONE Stop: 03/25/19 17:58 Last Admin: 03/25/19 17:39 Dose: 250 mls/hr Magnesium Sulfate/Dextrose 1 (gm/ Premix) 100 mls @ 100 mls/hr IV ONETIME ONE Stop: 03/25/19 20:49 Last Admin: 03/25/19 20:55 Dose: 100 mls/hr Azithromycin 250 mg/ Sodium (Chloride) 250 mls @ 250 mls/hr IV ONETIME ONE Stop: 03/26/19 18:59 Lactated Ringer's (Ringers, Lactated) 1,000 mls @ 999 mls/hr IV .BOLUS ONE Stop: 03/25/19 20:54 Last Admin: 03/25/19 20:54 Dose: 999 mls/hr Ceftriaxone Sodium 1 gm/ (Sodium Chloride) 100 mls @ 200 mls/hr IV Q24H [facility] Last Admin: 03/25/19 22:28 Dose: 200 mls/hr Lactated Ringer's (Ringers, Lactated) 1,000 mls @ 999 mls/hr IV .BOLUS ONE Stop: 03/25/19 23:14 Last Admin: 03/25/19 22:20 Dose: 999 mls/hr Lactated Ringer's (Ringers, Lactated) 500 mls @ 999 mls/hr IV .BOLUS ONE Stop: 03/25/19 23:27 Last Admin: 03/25/19 23:23 Dose: 999 mls/hr Sodium Chloride (Sodium Chloride 0.45%) 1,000 mls @ 125 mls/hr IV ASDIRECTED [facility] Lactated Ringer's (Ringers, Lactated) 1,000 mls @ 999 mls/hr IV .BOLUS ONE Stop: 03/26/19 01:15 Last Admin: 03/26/19 00:45 Dose: 999 mls/hr Piperacillin Sod/Tazobactam (Sod 4.5 gm/ Sodium Chloride) 100 mls @ 200 mls/hr IV ONETIME ONE Stop: 03/26/19 01:29 Last Admin: 03/26/19 00:58 Dose: 200 mls/hr Vancomycin HCl 2 gm/ Sodium (Chloride) 500 mls @ 250 mls/hr IV ONETIME ONE Stop: 03/26/19 01:59 Last Admin: 03/26/19 01:09 Dose: 250 mls/hr Lactated Ringer's (Ringers, Lactated) 500 mls @ 999 mls/hr IV .BOLUS ONE Stop: 03/26/19 08:30 Last Admin: 03/26/19 08:36 Dose: 999 mls/hr Magnesium Sulfate 2 gm/ Premix 50 mls @ 25 mls/hr IV ONETIME ONE Stop: 03/26/19 09:59 Last Admin: 03/26/19 08:44 Dose: 25 mls/hr Methylprednisolone Sodium Succinate (Solu-Medrol) 125 mg IVPUSH ONETIME ONE Stop: 03/25/19 14:42 Last Admin: 03/25/19 15:50 Dose: 125 mg Methylprednisolone Sodium Succinate (Solu-Medrol) 125 mg IVPUSH Q8H [facility] Last Admin: 03/26/19 02:29 Dose: Not Given Non-Formulary Medication (Alpha Lipoic Acid [Alpha Lipoic Acid]) 300 mg PO DAILY [facility] Non-Formulary Medication (Na Phos,M-B/Na Phos,Di-B) 1 applic RECTAL ASDIRECTED PRN PRN Reason: Constipation Non-Formulary Medication (Naloxone Hcl [Narcan]) 4 mg DEMETRI ASDIRECTED [facility] Non-Formulary Medication (Trolamine Salicylate/Aloe Vera) 1 applic TRDERM QID PRN PRN Reason: Pain Pantoprazole Sodium (Protonix Iv) 40 mg IV Q12HR [facility] Last Admin: 03/26/19 08:31 Dose: 40 mg Fluticasone/Umeclidin/Vilanter 1 Inh Ptom 0 each PO DAILY [facility] Last Admin: 03/26/19 09:32 Dose: Not Given Sodium Chloride ([place] Saline Nasal Gel) 0 gm DEMETRI DAILY PRN PRN Reason: Dryness Sumatriptan Succinate (Imitrex) 100 mg PO BID PRN PRN Reason: Headache - Exam Quality Assessment: Supplemental Oxygen (4L) General: Alert, Oriented, Cooperative HEENT: Pupils Equal, Pupils Reactive, EOMI, Mucous Membr. Moist/[place] Neck: Supple, Trachea Midline, No JVD. No: Lymphadenopathy Lungs: Wheezing. No: Crackles, Rales, Rhonchi Cardiovascular: Regular Rate, Regular Rhythm GI/Abdominal Exam: Normal Bowel Sounds, Soft, Non-Tender, No Organomegaly (Female) Exam: Deferred Skin: Warm, Dry, Intact Neurological: No New Focal Deficit Psy/Mental Status: Alert, Normal Affect, Normal Mood - Problem List Review Problem List Initiated/Reviewed/Updated: Yes - Plan Plan:: Assessment: Acute: Respiratory Failure - Combined Hypoxic and Hypercapneic - Chronic Respiratory Failure with 2L Dependent - Acute on Chronic - Risk factors: COPD and Asthma - CXR shows no acute abnormal findings - ABG shows pH of 7.27, PO2 of 53, PCO2 of 77 and O2 Sat of 84%-> pH 7.31, PO2 58, PCO2 65, O2Sat of 89% - Was on 5L --> 9L and now BIPAP->continues to be on Bipap, 4L nasal cannula when eating COPD Exacerbation - IV Solumedrol, Bronchodilators, Smooth Muscle Relaxant, and Anti- inflammatory agent - Continue home dose Trelegy - RT to assess and treat UTI - 2/2 Catheter Related UTI (Suprapubic); changed at the end of Feb per nurse - Risk factors: Neurogenic Bladder with chronic indwelling catheter - UA is suggestive of UTI - IV Rocephin 1 gram daily - UA Cx/Sx Hypernatremia - Na of 148 - Monitor Lactic Acidosis - LA of 2.1 -> 3.3 -> 3.4 -> 2.7 - Suspect 2/2 underlying infection - Serial LA to r/o early developing sepsis Class I Obesity - BMI of 30.4 - Advised LSM - Dietary consult for weight management Chronic: HTN, Chronic Respiratory Failure, COPD/Asthma, Constipation, Neurogenic Bladder, Recurrent UTI, Back Pain, Paraplegia S/p Surgery x3, Post Laminectomy Syndrome with Cramps and Spasm, Radiculopathy, Dorsalgia, Generalized Muscle Weakness, T6 and Distal Paralysis, Hx/o Arachnoiditis, Encephalopathy, Hx/o Right Frontal Ventriculostomy, RLS, Hypothyroidism, Hx/o Opioid Dependence, Insomnia, Anxiety, Depression and Obesity Class I. Plan: Admit to ICU Resume Some Home Meds Routine AM Labs Screen for Sepsis D-Dimer level IV Antibiotics Regular diet once off BIPAP Serial ABG and CXR as indicated Fall Precautions PT/OT to assess and treat RT to assess and treat SW/CM for d/c planning Code status: full Additional orders as above Prognosis guarded- serious <Janice Devine T - Last Filed: 03/26/19 20:44> - Patient Data Vitals - Most Recent: Last Vital Signs Temp 36.7 C 03/26/19 20:00 Pulse 70 03/26/19 15:32 Resp 16 03/26/19 20:00 BP 136/82 03/26/19 20:00 Pulse Ox 94 L 03/26/19 20:21 I&O - Last 24 Hours: Intake & Output 03/26/19 03/26/19 03/26/19 06:59 14:59 22:59 Intake Total 4912 120 2020 Output Total 700 1400 1175 Balance 4212 -1280 845 Lab Results Last 24 Hours: Laboratory Results - last 24 hr 03/25/19 03/25/19 03/25/19 Range/Units 21:08 21:40 22:15 WBC (3.98-10.04) K/mm3 RBC (3.98-5.22) M/mm3 Hgb (11.2-15.7) gm/L Hct (34.1-44.9) % MCV (79.4-94.8) fl MCH (25.6-32.2) pg MCHC (32.2-35.5) g/dl RDW Std Deviation (36.4-46.3) fL Plt Count (182-369) K/mm3 MPV (9.4-12.3) fl Neut % (Auto) (34.0-71.1) % Lymph % (Auto) (19.3-51.7) % Taylor % (Auto) (4.7-12.5) % Eos % (Auto) (0.7-5.8) Baso % (Auto) (0.1-1.2) % Neut # (Auto) (1.56-6.13) K/mm3 Lymph # (Auto) (1.18-3.74) K/mm3 Taylor # (Auto) (0.24-0.36) K/mm3 Eos # (Auto) (0.04-0.36) K/mm3 Baso # (Auto) (0.01-0.08) K/mm3 Manual Slide Review D-Dimer, Quantitative (0.19-0.50) mg/L Puncture Site ABG pH (7.35-7.45) ABG pCO2 (35.0-45.0) mmHg ABG pO2 (80.0-100.0) mmHg ABG HCO3 (22.0-26.0) meq/L ABG O2 Saturation (96.0-97.0) % ABG Base Excess (-2-2.0) Ja Test A-a Gradient mmHg O2 Delivery Device FiO2 (21.00-100.00) % Sodium (136-145) mEq/L Potassium (3.5-5.1) mEq/L Chloride (98-107) mEq/L Carbon Dioxide (21-32) mEq/L Anion Gap (5-15) BUN (7-18) mg/dL Creatinine (0.55-1.02) mg/dL Est Cr Clr Drug Dosing mL/min Estimated GFR (MDRD) (>60) mL/min BUN/Creatinine Ratio (14-18) Glucose (74-106) mg/dL POC Glucose (70-105) mg/dL Lactic Acid 3.3 H (0.4-2.0) mmol/L Calcium (8.5-10.1) mg/dL Magnesium (1.8-2.4) mg/dl C-Reactive Protein (<1.0) mg/dL Vitamin D 25-Hydroxy (30.0-100.0) ng/ml Free T4 (0.76-1.46) ng/dL TSH 3rd Generation (0.358-3.74) uIU/mL Urine Color Dark yellow (Yellow) Urine Appearance Slt cloudy H (Clear) Urine pH 6.0 (5.0-8.0) Ur Specific [place] 1.025 (1.005-1.030) Urine Protein Trace H (Negative) Urine Glucose (UA) Negative (Negative) Urine Ketones Trace H (Negative) Urine Occult Blood 2+ H (Negative) Urine Nitrite Positive H (Negative) Urine Bilirubin 1+ H (Negative) Urine Urobilinogen 2.0 H (0.2-1.0) Ur Leukocyte Esterase 1+ H (Negative) Urine RBC 10-20 H (0-5) /hpf Urine WBC 20-30 H (0-5) /hpf Ur Squamous Epith Cells 5-10 H (0-5) /hpf Urine Bacteria Few (FEW) /hpf Urine Mucus Few (FEW) /hpf MRSA (PCR) Negative 03/25/19 03/25/19 03/26/19 Range/Units 22:15 22:30 02:10 WBC (3.98-10.04) K/mm3 RBC (3.98-5.22) M/mm3 Hgb (11.2-15.7) gm/L Hct (34.1-44.9) % MCV (79.4-94.8) fl MCH (25.6-32.2) pg MCHC (32.2-35.5) g/dl RDW Std Deviation (36.4-46.3) fL Plt Count (182-369) K/mm3 MPV (9.4-12.3) fl Neut % (Auto) (34.0-71.1) % Lymph % (Auto) (19.3-51.7) % Taylor % (Auto) (4.7-12.5) % Eos % (Auto) (0.7-5.8) Baso % (Auto) (0.1-1.2) % Neut # (Auto) (1.56-6.13) K/mm3 Lymph # (Auto) (1.18-3.74) K/mm3 Taylor # (Auto) (0.24-0.36) K/mm3 Eos # (Auto) (0.04-0.36) K/mm3 Baso # (Auto) (0.01-0.08) K/mm3 Manual Slide Review D-Dimer, Quantitative 0.32 (0.19-0.50) mg/L Puncture Site ABG pH (7.35-7.45) ABG pCO2 (35.0-45.0) mmHg ABG pO2 (80.0-100.0) mmHg ABG HCO3 (22.0-26.0) meq/L ABG O2 Saturation (96.0-97.0) % ABG Base Excess (-2-2.0) Ja Test A-a Gradient mmHg O2 Delivery Device FiO2 (21.00-100.00) % Sodium 146 H (136-145) mEq/L Potassium 4.2 (3.5-5.1) mEq/L Chloride 107 (98-107) mEq/L Carbon Dioxide 36 H (21-32) mEq/L Anion Gap 7.2 (5-15) BUN 14 (7-18) mg/dL Creatinine 1.1 H (0.55-1.02) mg/dL Est Cr Clr Drug Dosing 60.39 mL/min Estimated GFR (MDRD) 52 (>60) mL/min BUN/Creatinine Ratio 12.7 L (14-18) Glucose 193 H (74-106) mg/dL POC Glucose (70-105) mg/dL Lactic Acid 3.4 H (0.4-2.0) mmol/L Calcium 8.5 (8.5-10.1) mg/dL Magnesium (1.8-2.4) mg/dl C-Reactive Protein (<1.0) mg/dL Vitamin D 25-Hydroxy (30.0-100.0) ng/ml Free T4 (0.76-1.46) ng/dL TSH 3rd Generation (0.358-3.74) uIU/mL Urine Color (Yellow) Urine Appearance (Clear) Urine pH (5.0-8.0) Ur Specific [place] (1.005-1.030) Urine Protein (Negative) Urine Glucose (UA) (Negative) Urine Ketones (Negative) Urine Occult Blood (Negative) Urine Nitrite (Negative) Urine Bilirubin (Negative) Urine Urobilinogen (0.2-1.0) Ur Leukocyte Esterase (Negative) Urine RBC (0-5) /hpf Urine WBC (0-5) /hpf Ur Squamous Epith Cells (0-5) /hpf Urine Bacteria (FEW) /hpf Urine Mucus (FEW) /hpf MRSA (PCR) 03/26/19 03/26/19 03/26/19 Range/Units 06:10 06:10 06:10 WBC 6.78 (3.98-10.04) K/mm3 RBC 5.03 (3.98-5.22) M/mm3 Hgb 14.8 D (11.2-15.7) gm/L Hct 46.8 H (34.1-44.9) % MCV 93.0 (79.4-94.8) fl MCH 29.4 (25.6-32.2) pg MCHC 31.6 L (32.2-35.5) g/dl RDW Std Deviation 51.5 H (36.4-46.3) fL Plt Count 118 L (182-369) K/mm3 MPV 11.3 (9.4-12.3) fl Neut % (Auto) 89.8 H (34.0-71.1) % Lymph % (Auto) 7.8 L (19.3-51.7) % Taylor % (Auto) 2.1 L (4.7-12.5) % Eos % (Auto) 0 L (0.7-5.8) Baso % (Auto) 0.0 L (0.1-1.2) % Neut # (Auto) 6.09 (1.56-6.13) K/mm3 Lymph # (Auto) 0.53 L (1.18-3.74) K/mm3 Taylor # (Auto) 0.14 L (0.24-0.36) K/mm3 Eos # (Auto) 0.00 L (0.04-0.36) K/mm3 Baso # (Auto) 0.00 L (0.01-0.08) K/mm3 Manual Slide Review Abnormal smear D-Dimer, Quantitative (0.19-0.50) mg/L Puncture Site ABG pH (7.35-7.45) ABG pCO2 (35.0-45.0) mmHg ABG pO2 (80.0-100.0) mmHg ABG HCO3 (22.0-26.0) meq/L ABG O2 Saturation (96.0-97.0) % ABG Base Excess (-2-2.0) Ja Test A-a Gradient mmHg O2 Delivery Device FiO2 (21.00-100.00) % Sodium 143 (136-145) mEq/L Potassium 4.4 (3.5-5.1) mEq/L Chloride 106 (98-107) mEq/L Carbon Dioxide 31 (21-32) mEq/L Anion Gap 10.4 (5-15) BUN 13 (7-18) mg/dL Creatinine 0.8 (0.55-1.02) mg/dL Est Cr Clr Drug Dosing 83.04 mL/min Estimated GFR (MDRD) > 60 (>60) mL/min BUN/Creatinine Ratio 16.3 (14-18) Glucose 134 H (74-106) mg/dL POC Glucose (70-105) mg/dL Lactic Acid 2.7 H (0.4-2.0) mmol/L Calcium 8.4 L (8.5-10.1) mg/dL Magnesium 1.7 L (1.8-2.4) mg/dl C-Reactive Protein 6.2 H* (<1.0) mg/dL Vitamin D 25-Hydroxy 29.4 L (30.0-100.0) ng/ml Free T4 1.09 (0.76-1.46) ng/dL TSH 3rd Generation 0.137 L (0.358-3.74) uIU/mL Urine Color (Yellow) Urine Appearance (Clear) Urine pH (5.0-8.0) Ur Specific [place] (1.005-1.030) Urine Protein (Negative) Urine Glucose (UA) (Negative) Urine Ketones (Negative) Urine Occult Blood (Negative) Urine Nitrite (Negative) Urine Bilirubin (Negative) Urine Urobilinogen (0.2-1.0) Ur Leukocyte Esterase (Negative) Urine RBC (0-5) /hpf Urine WBC (0-5) /hpf Ur Squamous Epith Cells (0-5) /hpf Urine Bacteria (FEW) /hpf Urine Mucus (FEW) /hpf MRSA (PCR) 03/26/19 03/26/19 03/26/19 Range/Units 06:12 07:22 11:31 WBC (3.98-10.04) K/mm3 RBC (3.98-5.22) M/mm3 Hgb (11.2-15.7) gm/L Hct (34.1-44.9) % MCV (79.4-94.8) fl MCH (25.6-32.2) pg MCHC (32.2-35.5) g/dl RDW Std Deviation (36.4-46.3) fL Plt Count (182-369) K/mm3 MPV (9.4-12.3) fl Neut % (Auto) (34.0-71.1) % Lymph % (Auto) (19.3-51.7) % [place] % (Auto) (4.7-12.5) % Eos % (Auto) (0.7-5.8) Baso % (Auto) (0.1-1.2) % Neut # (Auto) (1.56-6.13) K/mm3 Lymph # (Auto) (1.18-3.74) K/mm3 [place] # (Auto) (0.24-0.36) K/mm3 Eos # (Auto) (0.04-0.36) K/mm3 Baso # (Auto) (0.01-0.08) K/mm3 Manual Slide Review D-Dimer, Quantitative (0.19-0.50) mg/L Puncture Site Lt radial ABG pH 7.31 L (7.35-7.45) ABG pCO2 65.2 H (35.0-45.0) mmHg ABG pO2 58.0 L (80.0-100.0) mmHg ABG HCO3 32.0 H (22.0-26.0) meq/L ABG O2 Saturation 89.1 L (96.0-97.0) % ABG Base Excess 4.0 H (-2-2.0) Ja Test Positive A-a Gradient 147 mmHg O2 Delivery Device Bipap 12/8 FiO2 40.00 (21.00-100.00) % Sodium (136-145) mEq/L Potassium (3.5-5.1) mEq/L Chloride (98-107) mEq/L Carbon Dioxide (21-32) mEq/L Anion Gap (5-15) BUN (7-18) mg/dL Creatinine (0.55-1.02) mg/dL Est Cr Clr Drug Dosing mL/min Estimated GFR (MDRD) (>60) mL/min BUN/Creatinine Ratio (14-18) Glucose (74-106) mg/dL POC Glucose 117 H 107 H (70-105) mg/dL Lactic Acid (0.4-2.0) mmol/L Calcium (8.5-10.1) mg/dL Magnesium (1.8-2.4) mg/dl C-Reactive Protein (<1.0) mg/dL Vitamin D 25-Hydroxy (30.0-100.0) ng/ml Free T4 (0.76-1.46) ng/dL TSH 3rd Generation (0.358-3.74) uIU/mL Urine Color (Yellow) Urine Appearance (Clear) Urine pH (5.0-8.0) Ur Specific [place] (1.005-1.030) Urine Protein (Negative) Urine Glucose (UA) (Negative) Urine Ketones (Negative) Urine Occult Blood (Negative) Urine Nitrite (Negative) Urine Bilirubin (Negative) Urine Urobilinogen (0.2-1.0) Ur Leukocyte Esterase (Negative) Urine RBC (0-5) /hpf Urine WBC (0-5) /hpf Ur Squamous Epith Cells (0-5) /hpf Urine Bacteria (FEW) /hpf Urine Mucus (FEW) /hpf MRSA (PCR) 03/26/19 03/26/19 03/26/19 Range/Units 13:35 16:07 20:16 WBC (3.98-10.04) K/mm3 RBC (3.98-5.22) M/mm3 Hgb (11.2-15.7) gm/L Hct (34.1-44.9) % MCV (79.4-94.8) fl MCH (25.6-32.2) pg MCHC (32.2-35.5) g/dl RDW Std Deviation (36.4-46.3) fL Plt Count (182-369) K/mm3 MPV (9.4-12.3) fl Neut % (Auto) (34.0-71.1) % Lymph % (Auto) (19.3-51.7) % Taylor % (Auto) (4.7-12.5) % Eos % (Auto) (0.7-5.8) Baso % (Auto) (0.1-1.2) % Neut # (Auto) (1.56-6.13) K/mm3 Lymph # (Auto) (1.18-3.74) K/mm3 [place] # (Auto) (0.24-0.36) K/mm3 Eos # (Auto) (0.04-0.36) K/mm3 Baso # (Auto) (0.01-0.08) K/mm3 Manual Slide Review D-Dimer, Quantitative (0.19-0.50) mg/L Puncture Site ABG pH (7.35-7.45) ABG pCO2 (35.0-45.0) mmHg ABG pO2 (80.0-100.0) mmHg ABG HCO3 (22.0-26.0) meq/L ABG O2 Saturation (96.0-97.0) % ABG Base Excess (-2-2.0) Ja Test A-a Gradient mmHg O2 Delivery Device FiO2 (21.00-100.00) % Sodium (136-145) mEq/L Potassium (3.5-5.1) mEq/L Chloride (98-107) mEq/L Carbon Dioxide (21-32) mEq/L Anion Gap (5-15) BUN (7-18) mg/dL Creatinine (0.55-1.02) mg/dL Est Cr Clr Drug Dosing mL/min Estimated GFR (MDRD) (>60) mL/min BUN/Creatinine Ratio (14-18) Glucose (74-106) mg/dL POC Glucose 114 H 109 H (70-105) mg/dL Lactic Acid 2.2 H (0.4-2.0) mmol/L Calcium (8.5-10.1) mg/dL Magnesium (1.8-2.4) mg/dl C-Reactive Protein (<1.0) mg/dL Vitamin D 25-Hydroxy (30.0-100.0) ng/ml Free T4 (0.76-1.46) ng/dL TSH 3rd Generation (0.358-3.74) uIU/mL Urine Color (Yellow) Urine Appearance (Clear) Urine pH (5.0-8.0) Ur Specific [place] (1.005-1.030) Urine Protein (Negative) Urine Glucose (UA) (Negative) Urine Ketones (Negative) Urine Occult Blood (Negative) Urine Nitrite (Negative) Urine Bilirubin (Negative) Urine Urobilinogen (0.2-1.0) Ur Leukocyte Esterase (Negative) Urine RBC (0-5) /hpf Urine WBC (0-5) /hpf Ur Squamous Epith Cells (0-5) /hpf Urine Bacteria (FEW) /hpf Urine Mucus (FEW) /hpf MRSA (PCR) Bishnu Results Last 24 Hours: Microbiology 03/25/19 15:35 Aerobic Blood Culture - Preliminary Blood - Venous - Lab Draw NO GROWTH AFTER 1 DAY Anaerobic Blood Culture - Final 03/25/19 15:20 Aerobic Blood Culture - Preliminary Blood - Venous NO GROWTH AFTER 1 DAY Anaerobic Blood Culture - Preliminary NO GROWTH AFTER 1 DAY 03/25/19 21:40 Urine Culture - Preliminary Urine, Catheterized Gram Negative Rods Med Orders - Current: Current Medications Acetaminophen (Tylenol) 650 mg PO Q4H PRN PRN Reason: Pain (Mild 1-3)/fever Hydrocodone Bitart/Acetaminophen (Sig[place] 325-5 Mg) 1 tab PO Q4H PRN PRN Reason: Pain (moderate 4-6) Al Hydroxide/Mg Hydroxide (Mag-Al Plus) 30 ml PO Q4H PRN PRN Reason: Gas Albuterol/Ipratropium (Duoneb 3.0-0.5 Mg/3 Ml) 3 ml NEB Q4H PRN PRN Reason: Shortness Of Breath/wheezing Last Admin: 03/26/19 14:32 Dose: 3 ml Albuterol/Ipratropium (Duoneb 3.0-0.5 Mg/3 Ml) 3 ml NEB BIDRT [facility] Last Admin: 03/26/19 20:19 Dose: 3 ml Bisacodyl (Dulcolax) 5 mg PO DAILY PRN PRN Reason: Constipation Bisacodyl (Dulcolax) 10 mg RECTAL DAILY PRN PRN Reason: Constipation Dextrose/Water (Dextrose 50% In Water) 50 ml IVPUSH ASDIRECTED PRN PRN Reason: Hypoglycemia Docusate Sodium (Colace) 100 mg PO BID PRN PRN Reason: Constipation Duloxetine HCl (Cymbalta) 60 mg PO DAILY [facility] Last Admin: 03/26/19 08:33 Dose: 60 mg Enoxaparin Sodium (Lovenox) 40 mg SUBCUT DAILY [facility] Last Admin: 03/26/19 08:30 Dose: 40 mg Hydrocortisone Sodium Succinate (Solu-Cortef) 100 mg IVPUSH Q8H [facility] Last Admin: 03/26/19 16:10 Dose: 100 mg Hydromorphone HCl (Dilaudid) 0.5 mg IVPUSH Q2H PRN PRN Reason: Pain (severe 7-10) Promethazine HCl 6.25 mg/ (Sodium Chloride) 50.25 mls @ 100 mls/hr IV Q6H PRN PRN Reason: Nausea/Vomiting Piperacillin Sod/Tazobactam (Sod 4.5 gm/ Sodium Chloride) 100 mls @ 25 mls/hr IV Q8H [facility] Last Admin: 03/26/19 17:18 Dose: 25 mls/hr Norepinephrine Bitartrate 4 mg (/ Dextrose/Water) 250 mls @ 7.5 mls/hr IV TITRATE [facility]; Protocol Vancomycin HCl 1 gm/Vancomycin HCl 500 mg/ Sodium Chloride 500 mls @ 250 mls/ hr IV Q12H [facility] Last Admin: 03/26/19 12:52 Dose: 250 mls/hr Levofloxacin/Dextrose 750 mg/ (Premix) 150 mls @ 100 mls/hr IV Q24H [facility] Last Admin: 03/26/19 15:21 Dose: Not Given Sodium Chloride (Normal Saline) 1,000 mls @ 50 mls/hr IV ASDIRECTED [facility] Last Admin: 03/26/19 13:01 Dose: 50 mls/hr Insulin Human Lispro (Humalog) 0 unit SUBCUT QIDACANDBED [facility]; Protocol Last Admin: 03/26/19 18:00 Dose: Not Given Levothyroxine Sodium (Levothyroxine) 150 mcg PO ACBREAKFAST [facility] Last Admin: 03/26/19 06:08 Dose: 150 mcg Loperamide HCl (Imodium) 4 mg PO TID PRN PRN Reason: Diarrhea Lorazepam (Ativan) 1 mg IV Q6H PRN PRN Reason: Anxiety Lorazepam (Ativan) 0.5 mg PO BEDTIME [facility] Magnesium Citrate (Citrate Of Magnesia) 150 ml PO BID PRN PRN Reason: Constipation Melatonin (Melatonin) 9 mg PO BEDTIME [facility] Miscellaneous Information (Remove Patch) 1 ea TRDERM Q24H [facility] Morphine Sulfate (Morphine) 1 mg IVPUSH Q4H PRN PRN Reason: Dyspnea Multivitamins (Thera) 1 each PO DAILY [facility] Last Admin: 03/26/19 08:30 Dose: 1 each Nicotine (Habitrol) 21 mg TRDERM Q24H [facility] Last Admin: 03/26/19 10:00 Dose: Not Given Ondansetron HCl (Zofran) 4 mg IV Q6H PRN PRN Reason: Nausea/Vomiting Ondansetron HCl (Zofran Odt) 4 mg PO TID PRN PRN Reason: Nausea Oxycodone HCl (Oxycodone) 5 mg PO Q8H PRN PRN Reason: Pain Last Admin: 03/26/19 14:17 Dose: 5 mg Pantoprazole Sodium (Protonix) 40 mg PO BID [facility] Fluticasone/Umeclidin/Vilanter 1 Inh Ptom 0 each PO 0600 [facility] Last Admin: 03/26/19 09:33 Dose: Not Given Polyethylene Glycol (Miralax) 17 gm PO DAILY PRN PRN Reason: Constipation Pregabalin (Lyrica) 150 mg PO TID [facility] Last Admin: 03/26/19 14:17 Dose: 150 mg Senna/Docusate Sodium (Senna Plus) 1 tab PO BID PRN PRN Reason: Constipation Sodium Chloride (Saline Flush) 10 ml FLUSH ASDIRECTED PRN PRN Reason: Keep Vein Open Last Admin: 03/25/19 16:09 Dose: 10 ml Sodium Chloride ([place] Nasal [place]) 0 ml DEMETRI DAILY PRN PRN Reason: Dryness Sumatriptan Succinate (Imitrex) 100 mg PO ASDIRECTED PRN PRN Reason: MIGRAINE Temazepam (Restoril) 7.5 mg PO BEDTIME PRN PRN Reason: Sleep Vancomycin HCl (Pharmacy To Dose - Vancomycin) 0 dose .XX ASDIRECTED PRN PRN Reason: RX TO DOSE VANCO Discontinued Medications Acetaminophen (Tylenol) 650 mg PO Q4H PRN PRN Reason: Pain Albuterol/Ipratropium (Duoneb 3.0-0.5 Mg/3 Ml) 3 ml NEB ONETIME ONE Stop: 03/25/19 14:41 Last Admin: 03/25/19 15:02 Dose: 3 ml Albuterol/Ipratropium (Duoneb 3.0-0.5 Mg/3 Ml) Confirm Administered Dose 3 ml .ROUTE .STK-MED ONE Stop: 03/25/19 18:14 Last Admin: 03/25/19 18:17 Dose: 3 ml Furosemide (Lasix) 10 mg IVPUSH NOW ONE Stop: 03/26/19 15:52 Last Admin: 03/26/19 16:09 Dose: 10 mg Azithromycin 500 mg/ Sodium (Chloride) 250 mls @ 250 mls/hr IV ONETIME ONE Stop: 03/25/19 17:58 Last Admin: 03/25/19 17:39 Dose: 250 mls/hr Magnesium Sulfate/Dextrose 1 (gm/ Premix) 100 mls @ 100 mls/hr IV ONETIME ONE Stop: 03/25/19 20:49 Last Admin: 03/25/19 20:55 Dose: 100 mls/hr Azithromycin 250 mg/ Sodium (Chloride) 250 mls @ 250 mls/hr IV ONETIME ONE Stop: 03/26/19 18:59 Lactated Ringer's (Ringers, Lactated) 1,000 mls @ 999 mls/hr IV .BOLUS ONE Stop: 03/25/19 20:54 Last Admin: 03/25/19 20:54 Dose: 999 mls/hr Ceftriaxone Sodium 1 gm/ (Sodium Chloride) 100 mls @ 200 mls/hr IV Q24H [facility] Last Admin: 03/25/19 22:28 Dose: 200 mls/hr Lactated Ringer's (Ringers, Lactated) 1,000 mls @ 999 mls/hr IV .BOLUS ONE Stop: 03/25/19 23:14 Last Admin: 03/25/19 22:20 Dose: 999 mls/hr Lactated Ringer's (Ringers, Lactated) 500 mls @ 999 mls/hr IV .BOLUS ONE Stop: 03/25/19 23:27 Last Admin: 03/25/19 23:23 Dose: 999 mls/hr Sodium Chloride (Sodium Chloride 0.45%) 1,000 mls @ 125 mls/hr IV ASDIRECTED [facility] Lactated Ringer's (Ringers, Lactated) 1,000 mls @ 999 mls/hr IV .BOLUS ONE Stop: 03/26/19 01:15 Last Admin: 03/26/19 00:45 Dose: 999 mls/hr Piperacillin Sod/Tazobactam (Sod 4.5 gm/ Sodium Chloride) 100 mls @ 200 mls/hr IV ONETIME ONE Stop: 03/26/19 01:29 Last Admin: 03/26/19 00:58 Dose: 200 mls/hr Vancomycin HCl 2 gm/ Sodium (Chloride) 500 mls @ 250 mls/hr IV ONETIME ONE Stop: 03/26/19 01:59 Last Admin: 03/26/19 01:09 Dose: 250 mls/hr Sodium Chloride (Sodium Chloride 0.45%) 1,000 mls @ 150 mls/hr IV ASDIRECTED [facility] Last Admin: 03/26/19 01:30 Dose: 150 mls/hr Lactated Ringer's (Ringers, Lactated) 500 mls @ 999 mls/hr IV .BOLUS ONE Stop: 03/26/19 08:30 Last Admin: 03/26/19 08:36 Dose: 999 mls/hr Magnesium Sulfate 2 gm/ Premix 50 mls @ 25 mls/hr IV ONETIME ONE Stop: 03/26/19 09:59 Last Admin: 03/26/19 08:44 Dose: 25 mls/hr Lactated Ringer's (Ringers, Lactated) 1,000 mls @ 125 mls/hr IV ASDIRECTED ONE Stop: 03/26/19 17:38 Last Admin: 03/26/19 09:10 Dose: 125 mls/hr Methylprednisolone Sodium Succinate (Solu-Medrol) 125 mg IVPUSH ONETIME ONE Stop: 03/25/19 14:42 Last Admin: 03/25/19 15:50 Dose: 125 mg Methylprednisolone Sodium Succinate (Solu-Medrol) 125 mg IVPUSH Q8H [facility] Last Admin: 03/26/19 02:29 Dose: Not Given Miscellaneous Information (Remove Patch) 1 ea TRDERM Q24H [facility] Nicotine (Habitrol) 21 mg TRDERM Q24H [facility] Last Admin: 03/26/19 15:21 Dose: Not Given Non-Formulary Medication (Alpha Lipoic Acid [Alpha Lipoic Acid]) 300 mg PO DAILY [facility] Non-Formulary Medication (Na Phos,M-B/Na Phos,Di-B) 1 applic RECTAL ASDIRECTED PRN PRN Reason: Constipation Non-Formulary Medication (Naloxone Hcl [Narcan]) 4 mg DEMETRI ASDIRECTED [facility] Non-Formulary Medication (Trolamine Salicylate/Aloe Vera) 1 applic TRDERM QID PRN PRN Reason: Pain Pantoprazole Sodium (Protonix Iv) 40 mg IV Q12HR [facility] Last Admin: 03/26/19 08:31 Dose: 40 mg Fluticasone/Umeclidin/Vilanter 1 Inh Ptom 0 each PO DAILY [facility] Last Admin: 03/26/19 09:32 Dose: Not Given Sodium Chloride ([place] Saline Nasal Gel) 0 gm DEMETRI DAILY PRN PRN Reason: Dryness Sumatriptan Succinate (Imitrex) 100 mg PO BID PRN PRN Reason: Headache - Problem List Review Problem List Initiated/Reviewed/Updated: Yes - My Orders Last 24 Hours: My Active Orders 03/25/19 19:44 Height and Weight [RC] 04 Oxygen Therapy [RC] PRN Up With Assistance [RC] .ASDIRECTED VTE/DVT Education [RC] Vital Signs [RC] Q4HR Consult to Case Management/Cardiac Tech [CONS] Routine Consult to Trick Rodeo Rider [CONS] Routine OT Evaluation and Treatment [CONS] Routine PT Evaluation and Treatment [CONS] Routine Respiratory Care Assess and Treatment [CONS] Routine CULTURE SPUTUM + SMEAR [RM] Stat Acetaminophen [Tylenol] 650 mg PO Q4H PRN Acetaminophen/HYDROcodone [Sigel 325-5 MG] 1 tab PO Q4H PRN Albuterol/Ipratropium [DuoNeb 3.0-0.5 MG/3 ML] 3 ml NEB Q4H PRN Bisacodyl [Dulcolax] 5 mg PO DAILY PRN Docusate Sodium [Colace] 100 mg PO BID PRN Docusate Sodium/Sennosides [Senna Plus] 1 tab PO BID PRN HYDROmorphone [Dilaudid] 0.5 mg IVPUSH Q2H PRN LORazepam [Ativan] 1 mg IV Q6H PRN Ondansetron [Zofran] 4 mg IV Q6H PRN Polyethylene Glycol 3350 [MiraLAX] 17 gm PO DAILY PRN Promethazine [Phenergan] 6.25 mg Sodium Chloride 0.9% [Normal Saline] 50 ml IV Q6H Temazepam [Restoril] 7.5 mg PO BEDTIME PRN Resuscitation Status Routine 03/25/19 19:45 Cardiac Monitoring [RC] .PRN Intake and Output [RC] Q2HR 03/25/19 19:51 RT Aerosol Therapy [RC] ASDIRECTED 03/25/19 19:53 Morphine 1 mg IVPUSH Q4H PRN 03/25/19 21:00 Albuterol/Ipratropium [DuoNeb 3.0-0.5 MG/3 ML] 3 ml NEB BIDRT 03/25/19 21:40 CULTURE URINE [RM] Routine 03/25/19 21:59 Alum Hydrox/Mag Hydrox/Simeth [Mag-Al Plus] 30 ml PO Q4H PRN Bisacodyl [Dulcolax] 10 mg RECTAL DAILY PRN Loperamide [Imodium] 4 mg PO TID PRN Magnesium Citrate [Citrate of Magnesia] 150 ml PO BID PRN Ondansetron [Zofran ODT] 4 mg PO TID PRN oxyCODONE 5 mg PO Q8H PRN 03/25/19 22:58 Blood Glucose Check, Bedside [RC] QIDACANDBED Dextrose 50% in Water 50 ml IVPUSH ASDIRECTED PRN 03/26/19 00:00 Hydrocortisone Sod Succinate [Solu-CORTEF] 100 mg IVPUSH Q8H 03/26/19 00:27 CORTISOL [REF] Stat 03/26/19 00:30 Enoxaparin [Lovenox] 40 mg SUBCUT DAILY 03/26/19 01:30 Norepinephrine [Levophed] 4 mg Dextrose 5% in Water 246 ml IV TITRATE 03/26/19 06:00 Levothyroxine 150 mcg PO ACBREAKFAST 03/26/19 07:00 Insulin Lispro [HumaLOG] See Protocol SUBCUT QIDACANDBED 03/26/19 07:30 SUMAtriptan [Imitrex] 100 mg PO ASDIRECTED PRN Sodium Chloride 0.65% [[place] Nasal [place]] 0 ml DEMETRI DAILY PRN 03/26/19 07:49 Isolation [COMM] Routine 03/26/19 09:00 DULoxetine [Cymbalta] 60 mg PO DAILY Multivitamins,Therapeutic [Thera] 1 each PO DAILY Piperacillin/Tazobactam [Piperacil-Tazobact] 4.5 gm Sodium Chloride 0.9% [ Normal Saline] 100 ml IV Q8H Pregabalin [Lyrica] 150 mg PO TID 03/26/19 09:30 Patient's Own Medication [Ptom] 0 each PO 0600 03/26/19 10:00 Nicotine [Habitrol] 21 mg TRDERM Q24H 03/26/19 13:00 Vancomycin 1 gm Vancomycin 500 mg Sodium Chloride 0.9% [Normal Saline] 500 ml IV Q12H 03/26/19 13:30 Sodium Chloride 0.9% [Normal Saline] 1,000 ml IV ASDIRECTED 03/26/19 16:00 Levofloxacin/Dextrose 5%-Water [Levaquin in D5W 750 MG/150 ML] 750 mg Premix Bag 1 bag IV Q24H 03/26/19 21:00 LORazepam [Ativan] 0.5 mg PO BEDTIME Melatonin 9 mg PO BEDTIME Pantoprazole [ProTONIX] 40 mg PO BID 03/27/19 05:11 BASIC METABOLIC PANEL,BMP [CHEM] AM C-REACTIVE PROTEIN [CHEM] AM CBC WITH AUTO DIFF [HEME] AM MAGNESIUM [CHEM] AM 03/27/19 07:00 ABG [BLOOD GAS ARTERIAL] [BG] DAILY 03/27/19 10:00 Remove Patch 1 ea TRDERM Q24H 03/27/19 12:00 VANCOMYCIN TROUGH [CHEM] Timed 03/28/19 05:11 BASIC METABOLIC PANEL,BMP [CHEM] AM C-REACTIVE PROTEIN [CHEM] AM CBC WITH AUTO DIFF [HEME] AM MAGNESIUM [CHEM] AM 03/28/19 07:00 ABG [BLOOD GAS ARTERIAL] [BG] DAILY 03/29/19 05:11 BASIC METABOLIC PANEL,BMP [CHEM] AM C-REACTIVE PROTEIN [CHEM] AM CBC WITH AUTO DIFF [HEME] AM MAGNESIUM [CHEM] AM 03/29/19 07:00 ABG [BLOOD GAS ARTERIAL] [BG] DAILY 03/30/19 05:11 BASIC METABOLIC PANEL,BMP [CHEM] AM C-REACTIVE PROTEIN [CHEM] AM CBC WITH AUTO DIFF [HEME] AM MAGNESIUM [CHEM] AM 03/30/19 07:00 ABG [BLOOD GAS ARTERIAL] [BG] DAILY - Plan Plan:: No significant overnight issues. She is doing much better this morning clinically. She was hypotensive overnight but she responded to fluid challenge. his UA shows GNR. Discontinue IV Zosyn and Vancomycin. Discontinue IV steroid and switch to oral dosing. Encourage patient to use IS as directed. If she continues to improve clinically, we may be able to down grade her to MSP tomorrow. The patient was seen and examined in concert with the medical student. The assessment and plans were discussed and agreed upon with me.
[2019-03-26] MEDS ORDERED: Vancomycin 1 GM, Vancomycin 500 MG in Sodium Chloride 0.9% 500 ML IV SCH (13:00)
[2019-03-26] MEDS ORDERED: Sodium Chloride 0.9% 1,000 ML IV SCH (13:30)
[2019-03-26] MEDS: oxyCODONE 5 MG Tab PO PRN (14:17)
[2019-03-26] MEDS: Albuterol/Ipratropium 3.0-0.5 MG/3 ML Neb Soln NEB PRN (14:32)
[2019-03-26] MEDS ORDERED: Nicotine 21 MG/24 Hr Patch TRDERM SCH (15:00)
[2019-03-26] MEDS: Levofloxacin/Dextrose 5%-Water 750 MG in Premix Bag 1 BAG IV SCH ×2 (15:15→15:21)
[2019-03-26] MEDS ORDERED: Furosemide 20 MG/2 ML VIAL IVPUSH ONE (15:51)
[2019-03-26] MEDS ORDERED: Azithromycin 250 MG in Sodium Chloride 0.9% 250 ML IV ONE (18:00)
[2019-03-26] MEDS: Melatonin 3 MG Tab PO SCH (20:44)
[2019-03-26] MEDS: Pantoprazole 40 MG Tab.CR PO SCH (20:45)
[2019-03-26] MEDS: LORazepam 0.5 MG Tab PO SCH (20:46)
[2019-03-27] MEDS: oxyCODONE 5 MG Tab PO PRN ×3 (00:49→21:20)
[2019-03-27] MEDS: Albuterol/Ipratropium 3.0-0.5 MG/3 ML Neb Soln NEB SCH ×2 (05:49→20:44)
[2019-03-27] MEDS: Levothyroxine 150 MCG Tab PO SCH (05:56)
[2019-03-27] MEDS: Insulin Lispro 100 Units/ML 3 ML Vial SUBCUT SCH ×3 (06:30→16:43)
[2019-03-27] MEDS: UMECLIDIN PO SCH (07:55)
[2019-03-27] MEDS: FLUTICASONE PO SCH (07:55)
[2019-03-27] MEDS: VILANTER PO SCH (07:55)
--- NOTE | 2019-03-27 08:30 | CR ---
Chest: Portable view of the chest was obtained. Comparison: Prior chest x-ray of 03/26/19. Heart size is enlarged but accentuated from portable technique. Upper mediastinum is normal. Lungs are clear. Bony structures are grossly intact. Impression: 1. Nothing acute is seen on portable chest x-ray. Diagnostic code #1
[2019-03-27] MEDS: predniSONE 20 MG Tab PO SCH (08:57)
[2019-03-27] MEDS: Enoxaparin 40 MG/0.4 ML Syringe SUBCUT SCH (08:58)
[2019-03-27] MEDS: Multivitamins,Therapeutic Tab PO SCH (08:58)
[2019-03-27] MEDS: Pregabalin 75 MG Cap PO SCH ×3 (08:58→21:19)
[2019-03-27] MEDS: DULoxetine 30 MG Cap PO SCH (08:58)
[2019-03-27] MEDS: Pantoprazole 40 MG Tab.CR PO SCH ×2 (08:58→21:20)
[2019-03-27] MEDS: Nicotine 21 MG/24 Hr Patch TRDERM SCH (09:02)
--- NOTE | 2019-03-27 09:41 | PCM.PN ---
<Ayo Murillo - Last Filed: 03/27/19 09:29> - General Info Date of Service: 03/27/19 Admission Dx/Problem (Free Text): Admission Diagnosis/Problem Admission Diagnosis/Problem Hypoxia Subjective Update: Patient was awoken from sleep for interview during rounds today. Patient is doing better today. She is wondering when she will no longer need the Bipap machine for her breathing. It was discussed that RT would come to address her breathing treatments. RN states that patient was on her bipap machine all night. She could only tolerate being off of the bipap for approximately 30 minutes for medication or eating. Functional Status: Reports: Pain Controlled - Review of Systems General: Reports: No Symptoms HEENT: Reports: No Symptoms Pulmonary: Reports: Shortness of Breath Cardiovascular: Reports: No Symptoms Gastrointestinal: Reports: No Symptoms Genitourinary: Reports: No Symptoms Musculoskeletal: Reports: No Symptoms Skin: Reports: No Symptoms Neurological: Reports: No Symptoms Psychiatric: Reports: No Symptoms - Patient Data Vitals - Most Recent: Last Vital Signs Temp 97.9 F 03/27/19 07:52 Pulse 70 03/26/19 15:32 Resp 16 03/27/19 07:52 BP 151/94 H 03/27/19 07:52 Pulse Ox 90 L 03/27/19 07:52 Weight - Most Recent: 103.737 kg I&O - Last 24 Hours: Intake & Output 03/26/19 03/27/19 03/27/19 22:59 06:59 14:59 Intake Total 2220 1087 300 Output Total 1450 665 850 Balance 770 422 -550 Lab Results Last 24 Hours: Laboratory Results - last 24 hr 03/26/19 03/26/19 03/26/19 Range/Units 00:27 11:31 13:35 WBC (3.98-10.04) K/mm3 RBC (3.98-5.22) M/mm3 Hgb (11.2-15.7) gm/L Hct (34.1-44.9) % MCV (79.4-94.8) fl MCH (25.6-32.2) pg MCHC (32.2-35.5) g/dl RDW Std Deviation (36.4-46.3) fL Plt Count (182-369) K/mm3 MPV (9.4-12.3) fl Neut % (Auto) (34.0-71.1) % Lymph % (Auto) (19.3-51.7) % [place] % (Auto) (4.7-12.5) % Eos % (Auto) (0.7-5.8) Baso % (Auto) (0.1-1.2) % Neut # (Auto) (1.56-6.13) K/mm3 Lymph # (Auto) (1.18-3.74) K/mm3 [place] # (Auto) (0.24-0.36) K/mm3 Eos # (Auto) (0.04-0.36) K/mm3 Baso # (Auto) (0.01-0.08) K/mm3 Puncture Site ABG pH (7.35-7.45) ABG pCO2 (35.0-45.0) mmHg ABG pO2 (80.0-100.0) mmHg ABG HCO3 (22.0-26.0) meq/L ABG O2 Saturation (96.0-97.0) % ABG Base Excess (-2-2.0) Ja Test A-a Gradient mmHg O2 Delivery Device FiO2 (21.00-100.00) % Sodium (136-145) mEq/L Potassium (3.5-5.1) mEq/L Chloride (98-107) mEq/L Carbon Dioxide (21-32) mEq/L Anion Gap (5-15) BUN (7-18) mg/dL Creatinine (0.55-1.02) mg/dL Est Cr Clr Drug Dosing mL/min Estimated GFR (MDRD) (>60) mL/min BUN/Creatinine Ratio (14-18) Glucose (74-106) mg/dL POC Glucose 107 H (70-105) mg/dL Lactic Acid 2.2 H (0.4-2.0) mmol/L Calcium (8.5-10.1) mg/dL Magnesium (1.8-2.4) mg/dl C-Reactive Protein (<1.0) mg/dL Cortisol 2.8 ug/dL 03/26/19 03/26/19 03/27/19 Range/Units 16:07 20:16 05:01 WBC 6.40 (3.98-10.04) K/mm3 RBC 4.96 (3.98-5.22) M/mm3 Hgb 14.2 (11.2-15.7) gm/L Hct 46.3 H (34.1-44.9) % MCV 93.3 (79.4-94.8) fl MCH 28.6 (25.6-32.2) pg MCHC 30.7 L (32.2-35.5) g/dl RDW Std Deviation 50.9 H (36.4-46.3) fL Plt Count 119 L (182-369) K/mm3 MPV 11.1 (9.4-12.3) fl Neut % (Auto) 73.1 H (34.0-71.1) % Lymph % (Auto) 17.3 L (19.3-51.7) % [place] % (Auto) 9.1 (4.7-12.5) % Eos % (Auto) 0.3 L (0.7-5.8) Baso % (Auto) 0.0 L (0.1-1.2) % Neut # (Auto) 4.68 (1.56-6.13) K/mm3 Lymph # (Auto) 1.11 L (1.18-3.74) K/mm3 [place] # (Auto) 0.58 H (0.24-0.36) K/mm3 Eos # (Auto) 0.02 L (0.04-0.36) K/mm3 Baso # (Auto) 0.00 L (0.01-0.08) K/mm3 Puncture Site ABG pH (7.35-7.45) ABG pCO2 (35.0-45.0) mmHg ABG pO2 (80.0-100.0) mmHg ABG HCO3 (22.0-26.0) meq/L ABG O2 Saturation (96.0-97.0) % ABG Base Excess (-2-2.0) Ja Test A-a Gradient mmHg O2 Delivery Device FiO2 (21.00-100.00) % Sodium (136-145) mEq/L Potassium (3.5-5.1) mEq/L Chloride (98-107) mEq/L Carbon Dioxide (21-32) mEq/L Anion Gap (5-15) BUN (7-18) mg/dL Creatinine (0.55-1.02) mg/dL Est Cr Clr Drug Dosing mL/min Estimated GFR (MDRD) (>60) mL/min BUN/Creatinine Ratio (14-18) Glucose (74-106) mg/dL POC Glucose 114 H 109 H (70-105) mg/dL Lactic Acid (0.4-2.0) mmol/L Calcium (8.5-10.1) mg/dL Magnesium (1.8-2.4) mg/dl C-Reactive Protein (<1.0) mg/dL Cortisol ug/dL 03/27/19 03/27/19 03/27/19 Range/Units 05:01 05:54 06:59 WBC (3.98-10.04) K/mm3 RBC (3.98-5.22) M/mm3 Hgb (11.2-15.7) gm/L Hct (34.1-44.9) % MCV (79.4-94.8) fl MCH (25.6-32.2) pg MCHC (32.2-35.5) g/dl RDW Std Deviation (36.4-46.3) fL Plt Count (182-369) K/mm3 MPV (9.4-12.3) fl Neut % (Auto) (34.0-71.1) % Lymph % (Auto) (19.3-51.7) % [place] % (Auto) (4.7-12.5) % Eos % (Auto) (0.7-5.8) Baso % (Auto) (0.1-1.2) % Neut # (Auto) (1.56-6.13) K/mm3 Lymph # (Auto) (1.18-3.74) K/mm3 [place] # (Auto) (0.24-0.36) K/mm3 Eos # (Auto) (0.04-0.36) K/mm3 Baso # (Auto) (0.01-0.08) K/mm3 Puncture Site Lt radial ABG pH 7.37 (7.35-7.45) ABG pCO2 57.9 H (35.0-45.0) mmHg ABG pO2 63.0 L (80.0-100.0) mmHg ABG HCO3 33.0 H (22.0-26.0) meq/L ABG O2 Saturation 91.5 L (96.0-97.0) % ABG Base Excess 6.3 H (-2-2.0) Ja Test Positive A-a Gradient 150 mmHg O2 Delivery Device Bipap FiO2 40.00 (21.00-100.00) % Sodium 145 (136-145) mEq/L Potassium 3.5 (3.5-5.1) mEq/L Chloride 106 (98-107) mEq/L Carbon Dioxide 32 (21-32) mEq/L Anion Gap 10.5 (5-15) BUN 14 (7-18) mg/dL Creatinine 0.8 (0.55-1.02) mg/dL Est Cr Clr Drug Dosing 83.04 mL/min Estimated GFR (MDRD) > 60 (>60) mL/min BUN/Creatinine Ratio 17.5 (14-18) Glucose 83 (74-106) mg/dL POC Glucose 69 L (70-105) mg/dL Lactic Acid (0.4-2.0) mmol/L Calcium 8.4 L (8.5-10.1) mg/dL Magnesium 1.8 (1.8-2.4) mg/dl C-Reactive Protein 3.7 H* (<1.0) mg/dL Cortisol ug/dL Bishnu Results Last 24 Hours: Microbiology 03/25/19 21:40 Urine Culture - Preliminary Urine, Catheterized Gram Negative Rods Gram Positive Cocci 03/25/19 15:35 Aerobic Blood Culture - Preliminary Blood - Venous - Lab Draw NO GROWTH AFTER 1 DAY Anaerobic Blood Culture - Final 03/25/19 15:20 Aerobic Blood Culture - Preliminary Blood - Venous NO GROWTH AFTER 1 DAY Anaerobic Blood Culture - Preliminary NO GROWTH AFTER 1 DAY Med Orders - Current: Current Medications Acetaminophen (Tylenol) 650 mg PO Q4H PRN PRN Reason: Pain (Mild 1-3)/fever Hydrocodone Bitart/Acetaminophen ([place] 325-5 Mg) 1 tab PO Q4H PRN PRN Reason: Pain (moderate 4-6) Al Hydroxide/Mg Hydroxide (Mag-Al Plus) 30 ml PO Q4H PRN PRN Reason: Gas Albuterol/Ipratropium (Duoneb 3.0-0.5 Mg/3 Ml) 3 ml NEB Q4H PRN PRN Reason: Shortness Of Breath/wheezing Last Admin: 03/26/19 14:32 Dose: 3 ml Albuterol/Ipratropium (Duoneb 3.0-0.5 Mg/3 Ml) 3 ml NEB BIDRT [facility] Last Admin: 03/27/19 05:49 Dose: 3 ml Bisacodyl (Dulcolax) 5 mg PO DAILY PRN PRN Reason: Constipation Bisacodyl (Dulcolax) 10 mg RECTAL DAILY PRN PRN Reason: Constipation Dextrose/Water (Dextrose 50% In Water) 50 ml IVPUSH ASDIRECTED PRN PRN Reason: Hypoglycemia Docusate Sodium (Colace) 100 mg PO BID PRN PRN Reason: Constipation Duloxetine HCl (Cymbalta) 60 mg PO DAILY [facility] Last Admin: 03/27/19 08:58 Dose: 60 mg Enoxaparin Sodium (Lovenox) 40 mg SUBCUT DAILY [facility] Last Admin: 03/27/19 08:58 Dose: 40 mg Glycopyrrolate (Seebri Neohaler) 15.6 mcg IH BID [facility] Hydromorphone HCl (Dilaudid) 0.5 mg IVPUSH Q2H PRN PRN Reason: Pain (severe 7-10) Promethazine HCl 6.25 mg/ (Sodium Chloride) 50.25 mls @ 100 mls/hr IV Q6H PRN PRN Reason: Nausea/Vomiting Norepinephrine Bitartrate 4 mg (/ Dextrose/Water) 250 mls @ 7.5 mls/hr IV TITRATE [facility]; Protocol Levofloxacin/Dextrose 750 mg/ (Premix) 150 mls @ 100 mls/hr IV Q24H [facility] Last Admin: 03/26/19 15:21 Dose: Not Given Sodium Chloride (Normal Saline) 1,000 mls @ 50 mls/hr IV ASDIRECTED [facility] Last Admin: 03/26/19 13:01 Dose: 50 mls/hr Insulin Human Lispro (Humalog) 0 unit SUBCUT QIDACANDBED [facility]; Protocol Last Admin: 03/27/19 06:30 Dose: Not Given Levothyroxine Sodium (Levothyroxine) 150 mcg PO ACBREAKFAST [facility] Last Admin: 03/27/19 05:56 Dose: 150 mcg Loperamide HCl (Imodium) 4 mg PO TID PRN PRN Reason: Diarrhea Lorazepam (Ativan) 1 mg IV Q6H PRN PRN Reason: Anxiety Lorazepam (Ativan) 0.5 mg PO BEDTIME [facility] Last Admin: 03/26/19 20:46 Dose: 0.5 mg Magnesium Citrate (Citrate Of Magnesia) 150 ml PO BID PRN PRN Reason: Constipation Melatonin (Melatonin) 9 mg PO BEDTIME [facility] Last Admin: 03/26/19 20:44 Dose: 9 mg Miscellaneous Information (Remove Patch) 1 ea TRDERM Q24H [facility] Last Admin: 03/27/19 09:02 Dose: Not Given Morphine Sulfate (Morphine) 1 mg IVPUSH Q4H PRN PRN Reason: Dyspnea Multivitamins (Thera) 1 each PO DAILY [facility] Last Admin: 03/27/19 08:58 Dose: 1 each Nicotine (Habitrol) 21 mg TRDERM Q24H [facility] Last Admin: 03/27/19 09:02 Dose: Not Given Ondansetron HCl (Zofran) 4 mg IV Q6H PRN PRN Reason: Nausea/Vomiting Ondansetron HCl (Zofran Odt) 4 mg PO TID PRN PRN Reason: Nausea Oxycodone HCl (Oxycodone) 5 mg PO Q8H PRN PRN Reason: Pain Last Admin: 03/27/19 08:57 Dose: 5 mg Pantoprazole Sodium (Protonix) 40 mg PO BID [facility] Last Admin: 03/27/19 08:58 Dose: 40 mg Fluticasone/Umeclidin/Vilanter 1 Inh Ptom 0 each PO 0600 [facility] Last Admin: 03/27/19 07:55 Dose: Not Given Polyethylene Glycol (Miralax) 17 gm PO DAILY PRN PRN Reason: Constipation Prednisone (Prednisone) 40 mg PO WITHBREAKFAST [facility] Last Admin: 03/27/19 08:57 Dose: 40 mg Pregabalin (Lyrica) 150 mg PO TID [facility] Last Admin: 03/27/19 08:58 Dose: 150 mg Senna/Docusate Sodium (Senna Plus) 1 tab PO BID PRN PRN Reason: Constipation Sodium Chloride (Saline Flush) 10 ml FLUSH ASDIRECTED PRN PRN Reason: Keep Vein Open Last Admin: 03/25/19 16:09 Dose: 10 ml Sodium Chloride ([place] Nasal [place]) 0 ml DEMETRI DAILY PRN PRN Reason: Dryness Sumatriptan Succinate (Imitrex) 100 mg PO ASDIRECTED PRN PRN Reason: MIGRAINE Temazepam (Restoril) 7.5 mg PO BEDTIME PRN PRN Reason: Sleep Discontinued Medications Acetaminophen (Tylenol) 650 mg PO Q4H PRN PRN Reason: Pain Albuterol/Ipratropium (Duoneb 3.0-0.5 Mg/3 Ml) 3 ml NEB ONETIME ONE Stop: 03/25/19 14:41 Last Admin: 03/25/19 15:02 Dose: 3 ml Albuterol/Ipratropium (Duoneb 3.0-0.5 Mg/3 Ml) Confirm Administered Dose 3 ml .ROUTE .STK-MED ONE Stop: 03/25/19 18:14 Last Admin: 03/25/19 18:17 Dose: 3 ml Furosemide (Lasix) 10 mg IVPUSH NOW ONE Stop: 03/26/19 15:52 Last Admin: 03/26/19 16:09 Dose: 10 mg Hydrocortisone Sodium Succinate (Solu-Cortef) 100 mg IVPUSH Q8H [facility] Last Admin: 03/26/19 16:10 Dose: 100 mg Azithromycin 500 mg/ Sodium (Chloride) 250 mls @ 250 mls/hr IV ONETIME ONE Stop: 03/25/19 17:58 Last Admin: 03/25/19 17:39 Dose: 250 mls/hr Magnesium Sulfate/Dextrose 1 (gm/ Premix) 100 mls @ 100 mls/hr IV ONETIME ONE Stop: 03/25/19 20:49 Last Admin: 03/25/19 20:55 Dose: 100 mls/hr Azithromycin 250 mg/ Sodium (Chloride) 250 mls @ 250 mls/hr IV ONETIME ONE Stop: 03/26/19 18:59 Lactated Ringer's (Ringers, Lactated) 1,000 mls @ 999 mls/hr IV .BOLUS ONE Stop: 03/25/19 20:54 Last Admin: 03/25/19 20:54 Dose: 999 mls/hr Ceftriaxone Sodium 1 gm/ (Sodium Chloride) 100 mls @ 200 mls/hr IV Q24H [facility] Last Admin: 03/25/19 22:28 Dose: 200 mls/hr Lactated Ringer's (Ringers, Lactated) 1,000 mls @ 999 mls/hr IV .BOLUS ONE Stop: 03/25/19 23:14 Last Admin: 03/25/19 22:20 Dose: 999 mls/hr Lactated Ringer's (Ringers, Lactated) 500 mls @ 999 mls/hr IV .BOLUS ONE Stop: 03/25/19 23:27 Last Admin: 03/25/19 23:23 Dose: 999 mls/hr Sodium Chloride (Sodium Chloride 0.45%) 1,000 mls @ 125 mls/hr IV ASDIRECTED [facility] Lactated Ringer's (Ringers, Lactated) 1,000 mls @ 999 mls/hr IV .BOLUS ONE Stop: 03/26/19 01:15 Last Admin: 03/26/19 00:45 Dose: 999 mls/hr Piperacillin Sod/Tazobactam (Sod 4.5 gm/ Sodium Chloride) 100 mls @ 25 mls/hr IV Q8H [facility] Last Admin: 03/26/19 17:18 Dose: 25 mls/hr Piperacillin Sod/Tazobactam (Sod 4.5 gm/ Sodium Chloride) 100 mls @ 200 mls/hr IV ONETIME ONE Stop: 03/26/19 01:29 Last Admin: 03/26/19 00:58 Dose: 200 mls/hr Vancomycin HCl 2 gm/ Sodium (Chloride) 500 mls @ 250 mls/hr IV ONETIME ONE Stop: 03/26/19 01:59 Last Admin: 03/26/19 01:09 Dose: 250 mls/hr Sodium Chloride (Sodium Chloride 0.45%) 1,000 mls @ 150 mls/hr IV ASDIRECTED [facility] Last Admin: 03/26/19 01:30 Dose: 150 mls/hr Vancomycin HCl 1 gm/Vancomycin HCl 500 mg/ Sodium Chloride 500 mls @ 250 mls/ hr IV Q12H [facility] Last Admin: 03/26/19 12:52 Dose: 250 mls/hr Lactated Ringer's (Ringers, Lactated) 500 mls @ 999 mls/hr IV .BOLUS ONE Stop: 03/26/19 08:30 Last Admin: 03/26/19 08:36 Dose: 999 mls/hr Magnesium Sulfate 2 gm/ Premix 50 mls @ 25 mls/hr IV ONETIME ONE Stop: 03/26/19 09:59 Last Admin: 03/26/19 08:44 Dose: 25 mls/hr Lactated Ringer's (Ringers, Lactated) 1,000 mls @ 125 mls/hr IV ASDIRECTED ONE Stop: 03/26/19 17:38 Last Admin: 03/26/19 09:10 Dose: 125 mls/hr Methylprednisolone Sodium Succinate (Solu-Medrol) 125 mg IVPUSH ONETIME ONE Stop: 03/25/19 14:42 Last Admin: 03/25/19 15:50 Dose: 125 mg Methylprednisolone Sodium Succinate (Solu-Medrol) 125 mg IVPUSH Q8H [facility] Last Admin: 03/26/19 02:29 Dose: Not Given Miscellaneous Information (Remove Patch) 1 ea TRDERM Q24H [facility] Nicotine (Habitrol) 21 mg TRDERM Q24H [facility] Last Admin: 03/26/19 15:21 Dose: Not Given Non-Formulary Medication (Alpha Lipoic Acid [Alpha Lipoic Acid]) 300 mg PO DAILY [facility] Non-Formulary Medication (Na Phos,M-B/Na Phos,Di-B) 1 applic RECTAL ASDIRECTED PRN PRN Reason: Constipation Non-Formulary Medication (Naloxone Hcl [Narcan]) 4 mg DEMETRI ASDIRECTED [facility] Non-Formulary Medication (Trolamine Salicylate/Aloe Vera) 1 applic TRDERM QID PRN PRN Reason: Pain Pantoprazole Sodium (Protonix Iv) 40 mg IV Q12HR [facility] Last Admin: 03/26/19 08:31 Dose: 40 mg Fluticasone/Umeclidin/Vilanter 1 Inh Ptom 0 each PO DAILY [facility] Last Admin: 03/26/19 09:32 Dose: Not Given Sodium Chloride ([place] Saline Nasal Gel) 0 gm DEMETRI DAILY PRN PRN Reason: Dryness Sumatriptan Succinate (Imitrex) 100 mg PO BID PRN PRN Reason: Headache Vancomycin HCl (Pharmacy To Dose - Vancomycin) 0 dose .XX ASDIRECTED PRN PRN Reason: RX TO DOSE VANCO - Exam Quality Assessment: Supplemental Oxygen (Bipap) General: Alert, Oriented, Cooperative, Mild Distress HEENT: Pupils Equal, Pupils Reactive, EOMI, Mucous Membr. Moist/[place] Neck: Supple, Trachea Midline, No JVD. No: Lymphadenopathy Lungs: Wheezing. No: Crackles, Rales, Rhonchi Cardiovascular: Regular Rate, Regular Rhythm, No Murmurs. No: Gallops, Rubs GI/Abdominal Exam: Normal Bowel Sounds, Soft, Non-Tender, No Organomegaly, No Distention (Female) Exam: Deferred Back Exam: Normal Inspection Extremities: Normal Inspection, Non-Tender, No Pedal Edema. No: Mottled, Pallor , Redness Skin: Warm, Dry, Intact Neurological: No New Focal Deficit, Normal Speech, Normal Tone Psy/Mental Status: Alert, Normal Affect, Normal Mood - Problem List Review Problem List Initiated/Reviewed/Updated: Yes - Plan Plan:: No significant overnight issues. She is doing well morning clinically. She does have some increased wheezing in her left lung. She will get a chest xray today. Encourage patient to use IS as directed. Discontinue IV steroid and switch to oral dosing. Her blood pressure was well-maintained overnight. Her UA shows GNR. Discontinue IV Zosyn and Vancomycin. Patient will be down-graded to med/surg today. Discharge pending results of urine culture. The patient was seen and examined in concert with the medical student. The assessment and plans were discussed and agreed upon with me. <Janice Devine T - Last Filed: 03/27/19 21:25> - Patient Data Vitals - Most Recent: Last Vital Signs Temp 36.2 C 03/27/19 16:00 Pulse 70 03/26/19 15:32 Resp 16 03/27/19 16:00 BP 136/85 03/27/19 16:00 Pulse Ox 97 03/27/19 20:46 I&O - Last 24 Hours: Intake & Output 03/27/19 03/27/19 03/27/19 06:59 14:59 22:59 Intake Total 7708 241 8951 Output Total 665 2650 1800 Balance 422 -5961 -520 Lab Results Last 24 Hours: Laboratory Results - last 24 hr 03/27/19 03/27/19 03/27/19 Range/Units 05:01 05:01 05:54 WBC 6.40 (3.98-10.04) K/mm3 RBC 4.96 (3.98-5.22) M/mm3 Hgb 14.2 (11.2-15.7) gm/L Hct 46.3 H (34.1-44.9) % MCV 93.3 (79.4-94.8) fl MCH 28.6 (25.6-32.2) pg MCHC 30.7 L (32.2-35.5) g/dl RDW Std Deviation 50.9 H (36.4-46.3) fL Plt Count 119 L (182-369) K/mm3 MPV 11.1 (9.4-12.3) fl Neut % (Auto) 73.1 H (34.0-71.1) % Lymph % (Auto) 17.3 L (19.3-51.7) % [place] % (Auto) 9.1 (4.7-12.5) % Eos % (Auto) 0.3 L (0.7-5.8) Baso % (Auto) 0.0 L (0.1-1.2) % Neut # (Auto) 4.68 (1.56-6.13) K/mm3 Lymph # (Auto) 1.11 L (1.18-3.74) K/mm3 [place] # (Auto) 0.58 H (0.24-0.36) K/mm3 Eos # (Auto) 0.02 L (0.04-0.36) K/mm3 Baso # (Auto) 0.00 L (0.01-0.08) K/mm3 Puncture Site ABG pH (7.35-7.45) ABG pCO2 (35.0-45.0) mmHg ABG pO2 (80.0-100.0) mmHg ABG HCO3 (22.0-26.0) meq/L ABG O2 Saturation (96.0-97.0) % ABG Base Excess (-2-2.0) Ja Test A-a Gradient mmHg O2 Delivery Device FiO2 (21.00-100.00) % Sodium 145 (136-145) mEq/L Potassium 3.5 (3.5-5.1) mEq/L Chloride 106 (98-107) mEq/L Carbon Dioxide 32 (21-32) mEq/L Anion Gap 10.5 (5-15) BUN 14 (7-18) mg/dL Creatinine 0.8 (0.55-1.02) mg/dL Est Cr Clr Drug Dosing 83.04 mL/min Estimated GFR (MDRD) > 60 (>60) mL/min BUN/Creatinine Ratio 17.5 (14-18) Glucose 83 (74-106) mg/dL POC Glucose 69 L (70-105) mg/dL Calcium 8.4 L (8.5-10.1) mg/dL Magnesium 1.8 (1.8-2.4) mg/dl C-Reactive Protein 3.7 H* (<1.0) mg/dL 03/27/19 03/27/19 03/27/19 Range/Units 06:59 11:45 16:28 WBC (3.98-10.04) K/mm3 RBC (3.98-5.22) M/mm3 Hgb (11.2-15.7) gm/L Hct (34.1-44.9) % MCV (79.4-94.8) fl MCH (25.6-32.2) pg MCHC (32.2-35.5) g/dl RDW Std Deviation (36.4-46.3) fL Plt Count (182-369) K/mm3 MPV (9.4-12.3) fl Neut % (Auto) (34.0-71.1) % Lymph % (Auto) (19.3-51.7) % [place] % (Auto) (4.7-12.5) % Eos % (Auto) (0.7-5.8) Baso % (Auto) (0.1-1.2) % Neut # (Auto) (1.56-6.13) K/mm3 Lymph # (Auto) (1.18-3.74) K/mm3 [place] # (Auto) (0.24-0.36) K/mm3 Eos # (Auto) (0.04-0.36) K/mm3 Baso # (Auto) (0.01-0.08) K/mm3 Puncture Site Lt radial ABG pH 7.37 (7.35-7.45) ABG pCO2 57.9 H (35.0-45.0) mmHg ABG pO2 63.0 L (80.0-100.0) mmHg ABG HCO3 33.0 H (22.0-26.0) meq/L ABG O2 Saturation 91.5 L (96.0-97.0) % ABG Base Excess 6.3 H (-2-2.0) Ja Test Positive A-a Gradient 150 mmHg O2 Delivery Device Bipap FiO2 40.00 (21.00-100.00) % Sodium (136-145) mEq/L Potassium (3.5-5.1) mEq/L Chloride (98-107) mEq/L Carbon Dioxide (21-32) mEq/L Anion Gap (5-15) BUN (7-18) mg/dL Creatinine (0.55-1.02) mg/dL Est Cr Clr Drug Dosing mL/min Estimated GFR (MDRD) (>60) mL/min BUN/Creatinine Ratio (14-18) Glucose (74-106) mg/dL POC Glucose 82 117 H (70-105) mg/dL Calcium (8.5-10.1) mg/dL Magnesium (1.8-2.4) mg/dl C-Reactive Protein (<1.0) mg/dL Bishnu Results Last 24 Hours: Microbiology 03/25/19 15:35 Aerobic Blood Culture - Preliminary Blood - Venous - Lab Draw NO GROWTH AFTER 2 DAYS Anaerobic Blood Culture - Final 03/25/19 15:20 Aerobic Blood Culture - Preliminary Blood - Venous NO GROWTH AFTER 2 DAYS Anaerobic Blood Culture - Preliminary NO GROWTH AFTER 2 DAYS 03/27/19 11:45 Gram Stain - Final Sputum - Expectorated 03/25/19 21:40 Urine Culture - Preliminary Urine, Catheterized Gram Negative Rods Gram Positive Cocci Med Orders - Current: Current Medications Acetaminophen (Tylenol) 650 mg PO Q4H PRN PRN Reason: Pain (Mild 1-3)/fever Hydrocodone Bitart/Acetaminophen ([place] 325-5 Mg) 1 tab PO Q4H PRN PRN Reason: Pain (moderate 4-6) Last Admin: 03/27/19 13:56 Dose: 1 tab Al Hydroxide/Mg Hydroxide (Mag-Al Plus) 30 ml PO Q4H PRN PRN Reason: Gas Albuterol/Ipratropium (Duoneb 3.0-0.5 Mg/3 Ml) 3 ml NEB Q4H PRN PRN Reason: Shortness Of Breath/wheezing Last Admin: 03/26/19 14:32 Dose: 3 ml Albuterol/Ipratropium (Duoneb 3.0-0.5 Mg/3 Ml) 3 ml NEB BIDRT [facility] Last Admin: 03/27/19 20:44 Dose: 3 ml Bisacodyl (Dulcolax) 5 mg PO DAILY PRN PRN Reason: Constipation Bisacodyl (Dulcolax) 10 mg RECTAL DAILY PRN PRN Reason: Constipation Dextrose/Water (Dextrose 50% In Water) 50 ml IVPUSH ASDIRECTED PRN PRN Reason: Hypoglycemia Docusate Sodium (Colace) 100 mg PO BID PRN PRN Reason: Constipation Duloxetine HCl (Cymbalta) 60 mg PO DAILY [facility] Last Admin: 03/27/19 08:58 Dose: 60 mg Enoxaparin Sodium (Lovenox) 40 mg SUBCUT DAILY [facility] Last Admin: 03/27/19 08:58 Dose: 40 mg Glycopyrrolate (Seebri Neohaler) 15.6 mcg IH BID [facility] Last Admin: 03/27/19 20:45 Dose: 1 cap Hydromorphone HCl (Dilaudid) 0.5 mg IVPUSH Q2H PRN PRN Reason: Pain (severe 7-10) Promethazine HCl 6.25 mg/ (Sodium Chloride) 50.25 mls @ 100 mls/hr IV Q6H PRN PRN Reason: Nausea/Vomiting Norepinephrine Bitartrate 4 mg (/ Dextrose/Water) 250 mls @ 7.5 mls/hr IV TITRATE [facility]; Protocol Levofloxacin/Dextrose 750 mg/ (Premix) 150 mls @ 100 mls/hr IV Q24H [facility] Last Admin: 03/27/19 16:26 Dose: 100 mls/hr Levothyroxine Sodium (Levothyroxine) 150 mcg PO ACBREAKFAST [facility] Last Admin: 03/27/19 05:56 Dose: 150 mcg Loperamide HCl (Imodium) 4 mg PO TID PRN PRN Reason: Diarrhea Lorazepam (Ativan) 1 mg IV Q6H PRN PRN Reason: Anxiety Lorazepam (Ativan) 0.5 mg PO BEDTIME [facility] Last Admin: 03/26/19 20:46 Dose: 0.5 mg Magnesium Citrate (Citrate Of Magnesia) 150 ml PO BID PRN PRN Reason: Constipation Melatonin (Melatonin) 9 mg PO BEDTIME [facility] Last Admin: 03/26/19 20:44 Dose: 9 mg Miscellaneous Information (Remove Patch) 1 ea TRDERM Q24H [facility] Last Admin: 03/27/19 09:02 Dose: Not Given Morphine Sulfate (Morphine) 1 mg IVPUSH Q4H PRN PRN Reason: Dyspnea Multivitamins (Thera) 1 each PO DAILY [facility] Last Admin: 03/27/19 08:58 Dose: 1 each Nicotine (Habitrol) 21 mg TRDERM Q24H [facility] Last Admin: 03/27/19 09:02 Dose: Not Given Ondansetron HCl (Zofran) 4 mg IV Q6H PRN PRN Reason: Nausea/Vomiting Ondansetron HCl (Zofran Odt) 4 mg PO TID PRN PRN Reason: Nausea Oxycodone HCl (Oxycodone) 5 mg PO Q8H PRN PRN Reason: Pain Last Admin: 03/27/19 08:57 Dose: 5 mg Pantoprazole Sodium (Protonix) 40 mg PO BID [facility] Last Admin: 03/27/19 08:58 Dose: 40 mg Fluticasone/Umeclidin/Vilanter 1 Inh Ptom 0 each PO 0600 [facility] Last Admin: 03/27/19 07:55 Dose: Not Given Polyethylene Glycol (Miralax) 17 gm PO DAILY PRN PRN Reason: Constipation Prednisone (Prednisone) 40 mg PO WITHBREAKFAST [facility] Last Admin: 03/27/19 08:57 Dose: 40 mg Pregabalin (Lyrica) 150 mg PO TID [facility] Last Admin: 03/27/19 14:00 Dose: 150 mg Senna/Docusate Sodium (Senna Plus) 1 tab PO BID PRN PRN Reason: Constipation Sodium Chloride (Saline Flush) 10 ml FLUSH ASDIRECTED PRN PRN Reason: Keep Vein Open Last Admin: 03/25/19 16:09 Dose: 10 ml Sodium Chloride ([place] Nasal [place]) 0 ml DEMETRI DAILY PRN PRN Reason: Dryness Sumatriptan Succinate (Imitrex) 100 mg PO ASDIRECTED PRN PRN Reason: MIGRAINE Temazepam (Restoril) 7.5 mg PO BEDTIME PRN PRN Reason: Sleep Discontinued Medications Acetaminophen (Tylenol) 650 mg PO Q4H PRN PRN Reason: Pain Albuterol/Ipratropium (Duoneb 3.0-0.5 Mg/3 Ml) 3 ml NEB ONETIME ONE Stop: 03/25/19 14:41 Last Admin: 03/25/19 15:02 Dose: 3 ml Albuterol/Ipratropium (Duoneb 3.0-0.5 Mg/3 Ml) Confirm Administered Dose 3 ml .ROUTE .STK-MED ONE Stop: 03/25/19 18:14 Last Admin: 03/25/19 18:17 Dose: 3 ml Furosemide (Lasix) 10 mg IVPUSH NOW ONE Stop: 03/26/19 15:52 Last Admin: 03/26/19 16:09 Dose: 10 mg Hydrocortisone Sodium Succinate (Solu-Cortef) 100 mg IVPUSH Q8H [facility] Last Admin: 03/26/19 16:10 Dose: 100 mg Azithromycin 500 mg/ Sodium (Chloride) 250 mls @ 250 mls/hr IV ONETIME ONE Stop: 03/25/19 17:58 Last Admin: 03/25/19 17:39 Dose: 250 mls/hr Magnesium Sulfate/Dextrose 1 (gm/ Premix) 100 mls @ 100 mls/hr IV ONETIME ONE Stop: 03/25/19 20:49 Last Admin: 03/25/19 20:55 Dose: 100 mls/hr Azithromycin 250 mg/ Sodium (Chloride) 250 mls @ 250 mls/hr IV ONETIME ONE Stop: 03/26/19 18:59 Lactated Ringer's (Ringers, Lactated) 1,000 mls @ 999 mls/hr IV .BOLUS ONE Stop: 03/25/19 20:54 Last Admin: 03/25/19 20:54 Dose: 999 mls/hr Ceftriaxone Sodium 1 gm/ (Sodium Chloride) 100 mls @ 200 mls/hr IV Q24H [facility] Last Admin: 03/25/19 22:28 Dose: 200 mls/hr Lactated Ringer's (Ringers, Lactated) 1,000 mls @ 999 mls/hr IV .BOLUS ONE Stop: 03/25/19 23:14 Last Admin: 03/25/19 22:20 Dose: 999 mls/hr Lactated Ringer's (Ringers, Lactated) 500 mls @ 999 mls/hr IV .BOLUS ONE Stop: 03/25/19 23:27 Last Admin: 03/25/19 23:23 Dose: 999 mls/hr Sodium Chloride (Sodium Chloride 0.45%) 1,000 mls @ 125 mls/hr IV ASDIRECTED [facility] Lactated Ringer's (Ringers, Lactated) 1,000 mls @ 999 mls/hr IV .BOLUS ONE Stop: 03/26/19 01:15 Last Admin: 03/26/19 00:45 Dose: 999 mls/hr Piperacillin Sod/Tazobactam (Sod 4.5 gm/ Sodium Chloride) 100 mls @ 25 mls/hr IV Q8H [facility] Last Admin: 03/26/19 17:18 Dose: 25 mls/hr Piperacillin Sod/Tazobactam (Sod 4.5 gm/ Sodium Chloride) 100 mls @ 200 mls/hr IV ONETIME ONE Stop: 03/26/19 01:29 Last Admin: 03/26/19 00:58 Dose: 200 mls/hr Vancomycin HCl 2 gm/ Sodium (Chloride) 500 mls @ 250 mls/hr IV ONETIME ONE Stop: 03/26/19 01:59 Last Admin: 03/26/19 01:09 Dose: 250 mls/hr Sodium Chloride (Sodium Chloride 0.45%) 1,000 mls @ 150 mls/hr IV ASDIRECTED [facility] Last Admin: 03/26/19 01:30 Dose: 150 mls/hr Vancomycin HCl 1 gm/Vancomycin HCl 500 mg/ Sodium Chloride 500 mls @ 250 mls/ hr IV Q12H [facility] Last Admin: 03/26/19 12:52 Dose: 250 mls/hr Lactated Ringer's (Ringers, Lactated) 500 mls @ 999 mls/hr IV .BOLUS ONE Stop: 03/26/19 08:30 Last Admin: 03/26/19 08:36 Dose: 999 mls/hr Magnesium Sulfate 2 gm/ Premix 50 mls @ 25 mls/hr IV ONETIME ONE Stop: 03/26/19 09:59 Last Admin: 03/26/19 08:44 Dose: 25 mls/hr Lactated Ringer's (Ringers, Lactated) 1,000 mls @ 125 mls/hr IV ASDIRECTED ONE Stop: 03/26/19 17:38 Last Admin: 03/26/19 09:10 Dose: 125 mls/hr Sodium Chloride (Normal Saline) 1,000 mls @ 50 mls/hr IV ASDIRECTED [facility] Last Admin: 03/26/19 13:01 Dose: 50 mls/hr Insulin Human Lispro (Humalog) 0 unit SUBCUT QIDACANDBED [facility]; Protocol Last Admin: 03/27/19 16:43 Dose: Not Given Methylprednisolone Sodium Succinate (Solu-Medrol) 125 mg IVPUSH ONETIME ONE Stop: 03/25/19 14:42 Last Admin: 03/25/19 15:50 Dose: 125 mg Methylprednisolone Sodium Succinate (Solu-Medrol) 125 mg IVPUSH Q8H [facility] Last Admin: 03/26/19 02:29 Dose: Not Given Miscellaneous Information (Remove Patch) 1 ea TRDERM Q24H [facility] Nicotine (Habitrol) 21 mg TRDERM Q24H [facility] Last Admin: 03/26/19 15:21 Dose: Not Given Non-Formulary Medication (Alpha Lipoic Acid [Alpha Lipoic Acid]) 300 mg PO DAILY [facility] Non-Formulary Medication (Na Phos,M-B/Na Phos,Di-B) 1 applic RECTAL ASDIRECTED PRN PRN Reason: Constipation Non-Formulary Medication (Naloxone Hcl [Narcan]) 4 mg DEMETRI ASDIRECTED [facility] Non-Formulary Medication (Trolamine Salicylate/Aloe Vera) 1 applic TRDERM QID PRN PRN Reason: Pain Pantoprazole Sodium (Protonix Iv) 40 mg IV Q12HR [facility] Last Admin: 03/26/19 08:31 Dose: 40 mg Fluticasone/Umeclidin/Vilanter 1 Inh Ptom 0 each PO DAILY [facility] Last Admin: 03/26/19 09:32 Dose: Not Given Sodium Chloride ([place] Saline Nasal Gel) 0 gm DEMETRI DAILY PRN PRN Reason: Dryness Sumatriptan Succinate (Imitrex) 100 mg PO BID PRN PRN Reason: Headache Vancomycin HCl (Pharmacy To Dose - Vancomycin) 0 dose .XX ASDIRECTED PRN PRN Reason: RX TO DOSE VANCO - Problem List Review Problem List Initiated/Reviewed/Updated: Yes - My Orders Last 24 Hours: My Active Orders 03/26/19 20:42 Incentive Spirometry [RT Incentive Spirometry] [RC] ASDIRECTED 03/26/19 21:00 LORazepam [Ativan] 0.5 mg PO BEDTIME Melatonin 9 mg PO BEDTIME Pantoprazole [ProTONIX] 40 mg PO BID 03/27/19 07:00 predniSONE 40 mg PO WITHBREAKFAST 03/27/19 08:51 RT Chest Physiotherapy [RC] ASDIRECTED 03/27/19 09:00 Glycopyrrolate [Seebri Neohaler] 15.6 mcg IH BID 03/27/19 10:00 Remove Patch 1 ea TRDERM Q24H 03/27/19 11:28 Patient Status [ADT] Routine 03/27/19 11:45 CULTURE SPUTUM + SMEAR [RM] Stat 03/28/19 05:11 BASIC METABOLIC PANEL,BMP [CHEM] AM C-REACTIVE PROTEIN [CHEM] AM CBC WITH AUTO DIFF [HEME] AM MAGNESIUM [CHEM] AM 03/28/19 07:00 ABG [BLOOD GAS ARTERIAL] [BG] DAILY 03/29/19 05:11 BASIC METABOLIC PANEL,BMP [CHEM] AM C-REACTIVE PROTEIN [CHEM] AM CBC WITH AUTO DIFF [HEME] AM MAGNESIUM [CHEM] AM 03/29/19 07:00 ABG [BLOOD GAS ARTERIAL] [BG] DAILY 03/30/19 05:11 BASIC METABOLIC PANEL,BMP [CHEM] AM C-REACTIVE PROTEIN [CHEM] AM CBC WITH AUTO DIFF [HEME] AM MAGNESIUM [CHEM] AM 03/30/19 07:00 ABG [BLOOD GAS ARTERIAL] [BG] DAILY - Plan Plan:: Patient seen and re-examined this afternoon and evening. She seems to be doing just fine. She is sating at 93% on supplemental O2. Her UA shows GNR and GPC. her morning labs were fairly unremarkable. Afebrile w/o leukocytosis. her CRP is now down to 3.7. Discontinue accu-check. Possible discharge in AM pending urine sensitivity.
[2019-03-27] MEDS: Glycopyrrolate 15.6 MCG Cap.W.Dev Kit of 6 IH SCH ×2 (11:47→20:45)
[2019-03-27] MEDS: Acetaminophen/HYDROcodone 325-5 MG Tab PO PRN (13:56)
[2019-03-27] MEDS: Levofloxacin/Dextrose 5%-Water 750 MG in Premix Bag 1 BAG IV SCH (16:26)
[2019-03-27] MEDS: Melatonin 3 MG Tab PO SCH (21:19)
[2019-03-27] MEDS: LORazepam 0.5 MG Tab PO SCH (21:19)
[2019-03-28] MEDS: Albuterol/Ipratropium 3.0-0.5 MG/3 ML Neb Soln NEB PRN (01:56)
[2019-03-28] MEDS: oxyCODONE 5 MG Tab PO PRN (05:07)
[2019-03-28] MEDS: Levothyroxine 150 MCG Tab PO SCH (05:08)
[2019-03-28] MEDS: Albuterol/Ipratropium 3.0-0.5 MG/3 ML Neb Soln NEB SCH (06:01)
[2019-03-28] MEDS: FLUTICASONE PO SCH (07:39)
[2019-03-28] MEDS: UMECLIDIN PO SCH (07:39)
[2019-03-28] MEDS: VILANTER PO SCH (07:39)
[2019-03-28] MEDS: predniSONE 20 MG Tab PO SCH (07:51)
[2019-03-28] MEDS: Pantoprazole 40 MG Tab.CR PO SCH (08:00)
[2019-03-28] MEDS: DULoxetine 30 MG Cap PO SCH (08:00)
[2019-03-28] MEDS: Multivitamins,Therapeutic Tab PO SCH (08:00)
[2019-03-28] MEDS: Enoxaparin 40 MG/0.4 ML Syringe SUBCUT SCH (08:00)
[2019-03-28] MEDS: Pregabalin 75 MG Cap PO SCH (08:01)
[2019-03-28] MEDS: Glycopyrrolate 15.6 MCG Cap.W.Dev Kit of 6 IH SCH (08:10)
[2019-03-28] MEDS ORDERED: Oxymetazoline 0.05% Nasal Spray 30 ML Bottle NAS PRN (08:57)
[2019-03-28] MEDS ORDERED: Baclofen 10 MG Tab PO PRN (08:59)
[2019-03-28] MEDS ORDERED: Albuterol/Ipratropium 3.0-0.5 MG/3 ML Neb Soln NEB SCH (09:00)
[2019-03-28] MEDS: Acetaminophen/HYDROcodone 325-5 MG Tab PO PRN (09:13)
--- NOTE | 2019-03-28 09:49 | PCM.PN ---
- General Info Date of Service: 03/28/19 Admission Dx/Problem (Free Text): Admission Diagnosis/Problem Admission Diagnosis/Problem Hypoxia Subjective Update: Patient is sitting in bed eating breakfast during rounds today. Patient states that she did not sleep well last night. She reports episodes of severe coughing and back spasms. She states she did not receive any medication for her coughing or spasms. Dr. Devine explained that he was unaware of this. Patient is otherwise doing better. She states her cough is relatively unimproved from yesterday. Functional Status: Reports: Pain Controlled - Review of Systems General: Reports: No Symptoms HEENT: Reports: No Symptoms Pulmonary: Reports: Shortness of Breath, Cough, Sputum Cardiovascular: Reports: No Symptoms Gastrointestinal: Reports: No Symptoms Genitourinary: Reports: No Symptoms Musculoskeletal: Reports: Back Pain (Spasms) Skin: Reports: No Symptoms Neurological: Reports: No Symptoms Psychiatric: Reports: No Symptoms - Patient Data Vitals - Most Recent: Last Vital Signs Temp 97 F 03/28/19 08:00 Pulse 70 03/26/19 15:32 Resp 18 03/28/19 08:00 BP 143/90 H 03/28/19 08:00 Pulse Ox 94 L 03/28/19 08:10 Weight - Most Recent: 221 lb 12.8 oz I&O - Last 24 Hours: Intake & Output 03/27/19 03/28/19 03/28/19 22:59 06:59 14:59 Intake Total 1280 Output Total 2450 885 125 Balance -1170 -885 -125 Lab Results Last 24 Hours: Laboratory Results - last 24 hr 03/27/19 03/27/19 03/28/19 Range/Units 11:45 16:28 04:37 WBC 7.00 (3.98-10.04) K/mm3 RBC 5.44 H (3.98-5.22) M/mm3 Hgb 15.7 D (11.2-15.7) gm/L Hct 49.6 H (34.1-44.9) % MCV 91.2 (79.4-94.8) fl MCH 28.9 (25.6-32.2) pg MCHC 31.7 L (32.2-35.5) g/dl RDW Std Deviation 49.5 H (36.4-46.3) fL Plt Count 119 L (182-369) K/mm3 MPV 11.5 (9.4-12.3) fl Neut % (Auto) 68.8 (34.0-71.1) % Lymph % (Auto) 18.3 L (19.3-51.7) % [place] % (Auto) 12.3 (4.7-12.5) % Eos % (Auto) 0.1 L (0.7-5.8) Baso % (Auto) 0.1 (0.1-1.2) % Neut # (Auto) 4.81 (1.56-6.13) K/mm3 Lymph # (Auto) 1.28 (1.18-3.74) K/mm3 [place] # (Auto) 0.86 H (0.24-0.36) K/mm3 Eos # (Auto) 0.01 L (0.04-0.36) K/mm3 Baso # (Auto) 0.01 (0.01-0.08) K/mm3 Puncture Site ABG pH (7.35-7.45) ABG pCO2 (35.0-45.0) mmHg ABG pO2 (80.0-100.0) mmHg ABG HCO3 (22.0-26.0) meq/L ABG O2 Saturation (96.0-97.0) % ABG Base Excess (-2-2.0) Ja Test A-a Gradient mmHg O2 Delivery Device Oxygen Flow Rate FiO2 (21.00-100.00) % Sodium (136-145) mEq/L Potassium (3.5-5.1) mEq/L Chloride (98-107) mEq/L Carbon Dioxide (21-32) mEq/L Anion Gap (5-15) BUN (7-18) mg/dL Creatinine (0.55-1.02) mg/dL Est Cr Clr Drug Dosing mL/min Estimated GFR (MDRD) (>60) mL/min BUN/Creatinine Ratio (14-18) Glucose (74-106) mg/dL POC Glucose 82 117 H (70-105) mg/dL Calcium (8.5-10.1) mg/dL Magnesium (1.8-2.4) mg/dl C-Reactive Protein (<1.0) mg/dL 08/21/19 08/21/19 Range/Units 04:37 06:08 WBC (3.98-10.04) K/mm3 RBC (3.98-5.22) M/mm3 Hgb (11.2-15.7) gm/L Hct (34.1-44.9) % MCV (79.4-94.8) fl MCH (25.6-32.2) pg MCHC (32.2-35.5) g/dl RDW Std Deviation (36.4-46.3) fL Plt Count (182-369) K/mm3 MPV (9.4-12.3) fl Neut % (Auto) (34.0-71.1) % Lymph % (Auto) (19.3-51.7) % [place] % (Auto) (4.7-12.5) % Eos % (Auto) (0.7-5.8) Baso % (Auto) (0.1-1.2) % Neut # (Auto) (1.56-6.13) K/mm3 Lymph # (Auto) (1.18-3.74) K/mm3 [place] # (Auto) (0.24-0.36) K/mm3 Eos # (Auto) (0.04-0.36) K/mm3 Baso # (Auto) (0.01-0.08) K/mm3 Puncture Site Rt radial ABG pH 7.39 (7.35-7.45) ABG pCO2 52.4 H (35.0-45.0) mmHg ABG pO2 51.0 L (80.0-100.0) mmHg ABG HCO3 31.3 H (22.0-26.0) meq/L ABG O2 Saturation 86.1 L (96.0-97.0) % ABG Base Excess 5.3 H (-2-2.0) Ja Test Positive A-a Gradient 140 mmHg O2 Delivery Device Nasal cannula Oxygen Flow Rate 4.0 FiO2 36.00 (21.00-100.00) % Sodium 145 (136-145) mEq/L Potassium 3.7 (3.5-5.1) mEq/L Chloride 104 (98-107) mEq/L Carbon Dioxide 29 (21-32) mEq/L Anion Gap 15.7 H (5-15) BUN 13 (7-18) mg/dL Creatinine 1.0 (0.55-1.02) mg/dL Est Cr Clr Drug Dosing 66.43 mL/min Estimated GFR (MDRD) 58 (>60) mL/min BUN/Creatinine Ratio 13.0 L (14-18) Glucose 86 (74-106) mg/dL POC Glucose (70-105) mg/dL Calcium 8.6 (8.5-10.1) mg/dL Magnesium 1.6 L (1.8-2.4) mg/dl C-Reactive Protein 6.7 H* (<1.0) mg/dL Bishnu Results Last 24 Hours: Microbiology 03/25/19 21:40 Urine Culture - Preliminary Urine, Catheterized Enterobacter Cloacae Enterococcus Faecalis 03/25/19 15:35 Aerobic Blood Culture - Preliminary Blood - Venous - Lab Draw NO GROWTH AFTER 2 DAYS Anaerobic Blood Culture - Final 03/25/19 15:20 Aerobic Blood Culture - Preliminary Blood - Venous NO GROWTH AFTER 2 DAYS Anaerobic Blood Culture - Preliminary NO GROWTH AFTER 2 DAYS 03/27/19 11:45 Gram Stain - Final Sputum - Expectorated Med Orders - Current: Current Medications Acetaminophen (Tylenol) 650 mg PO Q4H PRN PRN Reason: Pain (Mild 1-3)/fever Hydrocodone Bitart/Acetaminophen ([place] 325-5 Mg) 1 tab PO Q4H PRN PRN Reason: Pain (moderate 4-6) Last Admin: 03/28/19 09:13 Dose: 1 tab Al Hydroxide/Mg Hydroxide (Mag-Al Plus) 30 ml PO Q4H PRN PRN Reason: Gas Albuterol/Ipratropium (Duoneb 3.0-0.5 Mg/3 Ml) 3 ml NEB Q4H PRN PRN Reason: Shortness Of Breath/wheezing Last Admin: 03/28/19 01:56 Dose: 3 ml Albuterol/Ipratropium (Duoneb 3.0-0.5 Mg/3 Ml) 3 ml NEB BID [facility] Last Admin: 03/28/19 08:09 Dose: 3 ml Baclofen (Lioresal) 10 mg PO TID PRN PRN Reason: Spasms Last Admin: 03/28/19 09:13 Dose: 10 mg Bisacodyl (Dulcolax) 5 mg PO DAILY PRN PRN Reason: Constipation Bisacodyl (Dulcolax) 10 mg RECTAL DAILY PRN PRN Reason: Constipation Dextrose/Water (Dextrose 50% In Water) 50 ml IVPUSH ASDIRECTED PRN PRN Reason: Hypoglycemia Docusate Sodium (Colace) 100 mg PO BID PRN PRN Reason: Constipation Duloxetine HCl (Cymbalta) 60 mg PO DAILY [facility] Last Admin: 03/28/19 08:00 Dose: 60 mg Enoxaparin Sodium (Lovenox) 40 mg SUBCUT DAILY [facility] Last Admin: 03/28/19 08:00 Dose: 40 mg Glycopyrrolate (Seebri Neohaler) 15.6 mcg IH BID [facility] Last Admin: 03/28/19 08:10 Dose: 1 cap Hydromorphone HCl (Dilaudid) 0.5 mg IVPUSH Q2H PRN PRN Reason: Pain (severe 7-10) Promethazine HCl 6.25 mg/ (Sodium Chloride) 50.25 mls @ 100 mls/hr IV Q6H PRN PRN Reason: Nausea/Vomiting Norepinephrine Bitartrate 4 mg (/ Dextrose/Water) 250 mls @ 7.5 mls/hr IV TITRATE [facility]; Protocol Levofloxacin/Dextrose 750 mg/ (Premix) 150 mls @ 100 mls/hr IV Q24H [facility] Last Admin: 03/27/19 16:26 Dose: 100 mls/hr Levothyroxine Sodium (Levothyroxine) 150 mcg PO ACBREAKFAST [facility] Last Admin: 03/28/19 05:08 Dose: 150 mcg Loperamide HCl (Imodium) 4 mg PO TID PRN PRN Reason: Diarrhea Lorazepam (Ativan) 1 mg IV Q6H PRN PRN Reason: Anxiety Lorazepam (Ativan) 0.5 mg PO BEDTIME [facility] Last Admin: 03/27/19 21:19 Dose: 0.5 mg Magnesium Citrate (Citrate Of Magnesia) 150 ml PO BID PRN PRN Reason: Constipation Melatonin (Melatonin) 9 mg PO BEDTIME [facility] Last Admin: 03/27/19 21:19 Dose: 9 mg Miscellaneous Information (Remove Patch) 1 ea TRDERM Q24H [facility] Last Admin: 03/27/19 09:02 Dose: Not Given Morphine Sulfate (Morphine) 1 mg IVPUSH Q4H PRN PRN Reason: Dyspnea Multivitamins (Thera) 1 each PO DAILY [facility] Last Admin: 03/28/19 08:00 Dose: 1 each Nicotine (Habitrol) 21 mg TRDERM Q24H [facility] Last Admin: 03/27/19 09:02 Dose: Not Given Ondansetron HCl (Zofran) 4 mg IV Q6H PRN PRN Reason: Nausea/Vomiting Ondansetron HCl (Zofran Odt) 4 mg PO TID PRN PRN Reason: Nausea Oxycodone HCl (Oxycodone) 5 mg PO Q8H PRN PRN Reason: Pain Last Admin: 03/28/19 05:07 Dose: 5 mg Oxymetazoline HCl (Nasal Decongestant [place]) 0 ml DEMETRI BID PRN PRN Reason: Congestion Last Admin: 03/28/19 09:13 Dose: 1 spray Pantoprazole Sodium (Protonix) 40 mg PO BID [facility] Last Admin: 03/28/19 08:00 Dose: 40 mg Fluticasone/Umeclidin/Vilanter 1 Inh Ptom 0 each PO 0600 [facility] Last Admin: 03/28/19 07:39 Dose: Not Given Polyethylene Glycol (Miralax) 17 gm PO DAILY PRN PRN Reason: Constipation Prednisone (Prednisone) 40 mg PO WITHBREAKFAST [facility] Last Admin: 03/28/19 07:51 Dose: 40 mg Pregabalin (Lyrica) 150 mg PO TID [facility] Last Admin: 03/28/19 08:01 Dose: 150 mg Senna/Docusate Sodium (Senna Plus) 1 tab PO BID PRN PRN Reason: Constipation Sodium Chloride (Saline Flush) 10 ml FLUSH ASDIRECTED PRN PRN Reason: Keep Vein Open Last Admin: 03/25/19 16:09 Dose: 10 ml Sodium Chloride ([place] Nasal [place]) 0 ml DEMETRI DAILY PRN PRN Reason: Dryness Last Admin: 03/28/19 04:28 Dose: 1 spray Sumatriptan Succinate (Imitrex) 100 mg PO ASDIRECTED PRN PRN Reason: MIGRAINE Temazepam (Restoril) 7.5 mg PO BEDTIME PRN PRN Reason: Sleep Discontinued Medications Acetaminophen (Tylenol) 650 mg PO Q4H PRN PRN Reason: Pain Albuterol/Ipratropium (Duoneb 3.0-0.5 Mg/3 Ml) 3 ml NEB ONETIME ONE Stop: 03/25/19 14:41 Last Admin: 03/25/19 15:02 Dose: 3 ml Albuterol/Ipratropium (Duoneb 3.0-0.5 Mg/3 Ml) Confirm Administered Dose 3 ml .ROUTE .STK-MED ONE Stop: 03/25/19 18:14 Last Admin: 03/25/19 18:17 Dose: 3 ml Albuterol/Ipratropium (Duoneb 3.0-0.5 Mg/3 Ml) 3 ml NEB BIDRT [facility] Last Admin: 03/28/19 06:01 Dose: Not Given Furosemide (Lasix) 10 mg IVPUSH NOW ONE Stop: 03/26/19 15:52 Last Admin: 03/26/19 16:09 Dose: 10 mg Hydrocortisone Sodium Succinate (Solu-Cortef) 100 mg IVPUSH Q8H [facility] Last Admin: 03/26/19 16:10 Dose: 100 mg Azithromycin 500 mg/ Sodium (Chloride) 250 mls @ 250 mls/hr IV ONETIME ONE Stop: 03/25/19 17:58 Last Admin: 03/25/19 17:39 Dose: 250 mls/hr Magnesium Sulfate/Dextrose 1 (gm/ Premix) 100 mls @ 100 mls/hr IV ONETIME ONE Stop: 03/25/19 20:49 Last Admin: 03/25/19 20:55 Dose: 100 mls/hr Azithromycin 250 mg/ Sodium (Chloride) 250 mls @ 250 mls/hr IV ONETIME ONE Stop: 03/26/19 18:59 Lactated Ringer's (Ringers, Lactated) 1,000 mls @ 999 mls/hr IV .BOLUS ONE Stop: 03/25/19 20:54 Last Admin: 03/25/19 20:54 Dose: 999 mls/hr Ceftriaxone Sodium 1 gm/ (Sodium Chloride) 100 mls @ 200 mls/hr IV Q24H [facility] Last Admin: 03/25/19 22:28 Dose: 200 mls/hr Lactated Ringer's (Ringers, Lactated) 1,000 mls @ 999 mls/hr IV .BOLUS ONE Stop: 03/25/19 23:14 Last Admin: 03/25/19 22:20 Dose: 999 mls/hr Lactated Ringer's (Ringers, Lactated) 500 mls @ 999 mls/hr IV .BOLUS ONE Stop: 03/25/19 23:27 Last Admin: 03/25/19 23:23 Dose: 999 mls/hr Sodium Chloride (Sodium Chloride 0.45%) 1,000 mls @ 125 mls/hr IV ASDIRECTED [facility] Lactated Ringer's (Ringers, Lactated) 1,000 mls @ 999 mls/hr IV .BOLUS ONE Stop: 03/26/19 01:15 Last Admin: 03/26/19 00:45 Dose: 999 mls/hr Piperacillin Sod/Tazobactam (Sod 4.5 gm/ Sodium Chloride) 100 mls @ 25 mls/hr IV Q8H [facility] Last Admin: 03/26/19 17:18 Dose: 25 mls/hr Piperacillin Sod/Tazobactam (Sod 4.5 gm/ Sodium Chloride) 100 mls @ 200 mls/hr IV ONETIME ONE Stop: 03/26/19 01:29 Last Admin: 03/26/19 00:58 Dose: 200 mls/hr Vancomycin HCl 2 gm/ Sodium (Chloride) 500 mls @ 250 mls/hr IV ONETIME ONE Stop: 03/26/19 01:59 Last Admin: 03/26/19 01:09 Dose: 250 mls/hr Sodium Chloride (Sodium Chloride 0.45%) 1,000 mls @ 150 mls/hr IV ASDIRECTED [facility] Last Admin: 03/26/19 01:30 Dose: 150 mls/hr Vancomycin HCl 1 gm/Vancomycin HCl 500 mg/ Sodium Chloride 500 mls @ 250 mls/ hr IV Q12H [facility] Last Admin: 03/26/19 12:52 Dose: 250 mls/hr Lactated Ringer's (Ringers, Lactated) 500 mls @ 999 mls/hr IV .BOLUS ONE Stop: 03/26/19 08:30 Last Admin: 03/26/19 08:36 Dose: 999 mls/hr Magnesium Sulfate 2 gm/ Premix 50 mls @ 25 mls/hr IV ONETIME ONE Stop: 03/26/19 09:59 Last Admin: 03/26/19 08:44 Dose: 25 mls/hr Lactated Ringer's (Ringers, Lactated) 1,000 mls @ 125 mls/hr IV ASDIRECTED ONE Stop: 03/26/19 17:38 Last Admin: 03/26/19 09:10 Dose: 125 mls/hr Sodium Chloride (Normal Saline) 1,000 mls @ 50 mls/hr IV ASDIRECTED [facility] Last Admin: 03/26/19 13:01 Dose: 50 mls/hr Magnesium Sulfate/Dextrose 1 (gm/ Premix) 100 mls @ 100 mls/hr IV ONETIME ONE Stop: 03/28/19 08:29 Last Admin: 03/28/19 07:51 Dose: 100 mls/hr Insulin Human Lispro (Humalog) 0 unit SUBCUT QIDACANDBED [facility]; Protocol Last Admin: 03/27/19 16:43 Dose: Not Given Methylprednisolone Sodium Succinate (Solu-Medrol) 125 mg IVPUSH ONETIME ONE Stop: 03/25/19 14:42 Last Admin: 03/25/19 15:50 Dose: 125 mg Methylprednisolone Sodium Succinate (Solu-Medrol) 125 mg IVPUSH Q8H [facility] Last Admin: 03/26/19 02:29 Dose: Not Given Miscellaneous Information (Remove Patch) 1 ea TRDERM Q24H [facility] Nicotine (Habitrol) 21 mg TRDERM Q24H [facility] Last Admin: 03/26/19 15:21 Dose: Not Given Non-Formulary Medication (Alpha Lipoic Acid [Alpha Lipoic Acid]) 300 mg PO DAILY [facility] Non-Formulary Medication (Na Phos,M-B/Na Phos,Di-B) 1 applic RECTAL ASDIRECTED PRN PRN Reason: Constipation Non-Formulary Medication (Naloxone Hcl [Narcan]) 4 mg DEMETRI ASDIRECTED [facility] Non-Formulary Medication (Trolamine Salicylate/Aloe Vera) 1 applic TRDERM QID PRN PRN Reason: Pain Pantoprazole Sodium (Protonix Iv) 40 mg IV Q12HR [facility] Last Admin: 03/26/19 08:31 Dose: 40 mg Fluticasone/Umeclidin/Vilanter 1 Inh Ptom 0 each PO DAILY [facility] Last Admin: 03/26/19 09:32 Dose: Not Given Sodium Chloride ([place] Saline Nasal Gel) 0 gm DEMETRI DAILY PRN PRN Reason: Dryness Sumatriptan Succinate (Imitrex) 100 mg PO BID PRN PRN Reason: Headache Vancomycin HCl (Pharmacy To Dose - Vancomycin) 0 dose .XX ASDIRECTED PRN PRN Reason: RX TO DOSE VANCO - Exam Quality Assessment: Supplemental Oxygen, Urine Catheter General: Alert, Oriented, Cooperative, No Acute Distress HEENT: Pupils Equal, Pupils Reactive, EOMI, Mucous Membr. Moist/[place] Neck: Supple, Trachea Midline - Plan Plan:: Patient seen and re-examined this afternoon and evening. She seems to be doing just fine. She is sating at 93% on supplemental O2. Her UA shows GNR and GPC. her morning labs were fairly unremarkable. Afebrile w/o leukocytosis. her CRP is now down to 3.7. Discontinue accu-check. Possible discharge in AM pending urine sensitivity.
[2019-03-28] MEDS: Nicotine 21 MG/24 Hr Patch TRDERM SCH (10:28)
[2019-03-28 12:06] VITALS: BP 150/90
[2019-03-28] MEDS ORDERED: Levofloxacin 750 MG Tab PO SCH (13:00)
--- NOTE | 2019-03-28 13:13 | PCM.DCSUM1 ---
<Ayo Murillo - Last Filed: 03/28/19 13:16> Discharge Summary - Hospital Course HPI Initial Comments: This is a 53 yo white female with past medical hx/o HTN, Chronic Respiratory failure, COPD/Asthma, Constipation, Neurogenic Bladder, Recurrent UTI, Back Pain , Paraplegia S/p Surgery x3, Post Laminectomy Syndrome with Cramps and Spasm, Radiculopathy, Dorsalgia, Generalized Muscle Weakness, T6 and Distal Paralysis, Hx/o Arachnoiditis, Encephalopathy, Hx/o Right Frontal Ventriculostomy, RLS, Hypothyroidism, Hx/o Opioid Dependence, Insomnia, Anxiety, Depression and Obesity Class I who was brought in by ambulance from [place] due to worsening shortness of breath associated with non productive cough. She was also found with O2 sat in the 80s this morning. She has no fever, chest pain or chills. She further denies any GI issues. However she has chronic suprapubic catheter due to neurogenic bladder from paralysis. Her initial work up in ED shows a CBC remarkable for RBC of 6.2, Hgb of 18, Hct of 58.5, MCHC of 30.7, RDW of 53.5, Platelet of 102, Neutrophils of 80.5%, Lymphocytes% of 13.5%, and Eosinophils of 0.3%. Her ABG shows a pH of 7.27, pCO2 of 77.6, pO2 of 53, HCO3 of 34.7, and O2 sat of 84.2% on 5L NC. Her Chemistry is significant for Na of 148, CO2 of 40, LA of 2.1, Alk Phos of 164, and CRP of 3.7. Her UA is positive for UTI. Patient is primarily being admitted for acute on chronic combined hypoxic and hypercapneic respiratory failure. Brief History: Patient was admitted to ICU with acute on chronic respiratory failure. She arrived on 15L via nonrebreather mask and was placed on bipap to keep sats above 90%. She remained on bipap for the entirety of her first night in the hospital. Her urine was collected on day 1 of admission and was highly suspicious of UTI. She was started on antibiotics accordingly. On first night of admission, patient experienced a hypotensive episode which responded to fluid challenge. She remained on bipap during most of the 2nd day of admission, transitioning to NC for meals and then back to bipap. Her IV steroids were switched to oral steroids on 2nd day of admission. On day of discharge was able to maintain sats on NC alone at 4-5L O2. She was discharged on antibiotics to treat her UTI and cover for any possible bronchitis. Diagnosis: Stroke: No Modified [place] Scale: No Symptoms at All Modified [place] Scale Score: 0 - Discharge Data Discharge Date: 03/28/19 Discharge Disposition: DC/Tfer to Other 70 Condition: Good - Patient Summary/Data Consults: Consultations 03/25/19 19:44 Consult to Case Management/Nurse Manager [CONS] Routine Consult to Precast Molder [CONS] Routine OT Evaluation and Treatment [CONS] Routine PT Evaluation and Treatment [CONS] Routine Respiratory Care Assess and Treatment [CONS] Routine - Patient Instructions Diet: Usual Diet as Tolerated Activity: As Tolerated Driving: Do Not Drive Showering/Bathing: May Shower Notify Provider of: Fever, Increased Pain, Nausea and/or Vomiting Other/Special Instructions: - Please take all new medications as directed. - Resume routine home medications and activity as tolerated. - Call or follow up with your doctor for any concerns or issues after discharge. - Follow up with your doctor in 1 week. - Come back or seek immediate care should your symptoms persist or get worse - Discharge Plan *PRESCRIPTION DRUG MONITORING PROGRAM REVIEWED*: Not Applicable *COPY OF PRESCRIPTION DRUG MONITORING REPORT IN PATIENT DANNY: Not Applicable Prescriptions/Med Rec: Cholecalciferol (Vitamin D3) [Vitamin D3] 5,000 unit PO DAILY #15 capsule Levofloxacin [Levaquin] 750 mg PO DAILY #3 tablet methylPREDNISolone [Medrol] 4 mg PO ASDIRECTED #1 dosepk Saccharomyces Boulardii [Florastor] 250 mg PO DAILY #7 capsule Home Medications: Home Meds Acetaminophen [Tylenol] 650 mg PO Q4H PRN 11/17/18 [History] Alpha Lipoic Acid 300 mg PO DAILY 11/17/18 [History] Baclofen 20 mg PO QID 11/17/18 [History] Bisacodyl 10 mg RC DAILY PRN 11/17/18 [History] LORazepam [Ativan] 0.5 mg PO BEDTIME 11/17/18 [History] Levothyroxine 150 mcg PO ACBREAKFAST 11/17/18 [History] Loperamide HCl [Imodium A-D] 2 mg PO TID PRN 11/17/18 [History] Magnesium Citrate 150 ml PO BID PRN 11/17/18 [History] Multivitamin [Daily Multiple Vitamin] 1 tab PO DAILY 11/17/18 [History] Naproxen Sodium [Aleve] 440 mg PO BEDTIME 11/17/18 [History] Ondansetron [Zofran ODT] 4 mg PO TID PRN 11/17/18 [History] SUMAtriptan Succinate [Imitrex] 100 mg PO BID PRN 11/17/18 [History] Trolamine Salicylate/Aloe Vera [Aspercreme 10% Cream] 1 applic TRDERM QID PRN [History] Albuterol Sulfate 1 vial INH BID PRN 01/18/19 [History] DULoxetine HCl [Cymbalta] 60 mg PO DAILY 01/18/19 [History] Mag Hydrox/Al Hydrox/Simeth [[place]] 30 ml PO Q4H PRN 01/18/19 [History] Melatonin 10 mg PO BEDTIME 01/18/19 [History] Na Phos,M-B/Na Phos,DI-B [Fleet Enema] 1 applic RECTAL ASDIRECTED PRN 01/18/19 [ History] Naloxone HCl [Narcan] 4 mg DEMETRI ASDIRECTED 01/18/19 [History] Polyethylene Glycol 3350 [MiraLAX] 17 gm PO DAILY PRN 01/18/19 [History] Pregabalin [Lyrica] 150 mg PO TID 01/18/19 [History] Albuterol/Ipratropium [DuoNeb 3.0-0.5 MG/3 ML] 3 ml NEB Q6H PRN #120 neb [Rx] oxyCODONE 5 mg PO Q8H PRN #30 tablet 01/22/19 [Rx] Albuterol Sulfate [Albuterol Sulfate Hfa] 8.5 gm IH Q6HR PRN 03/25/19 [History] Fluticasone/Umeclidin/Vilanter [Trelegy Ellipta 100-62.5-25] 1 inh PO DAILY [History] Sodium Chloride/Aloe Vera [[place] Saline Nasal Gel [place]] 1 spray DEMETRI DAILY PRN [History] Cholecalciferol (Vitamin D3) [Vitamin D3] 5,000 unit PO DAILY #15 capsule [Rx] Levofloxacin [Levaquin] 750 mg PO DAILY #3 tablet 03/28/19 [Rx] Saccharomyces Boulardii [Florastor] 250 mg PO DAILY #7 capsule 03/28/19 [Rx] methylPREDNISolone [Medrol] 4 mg PO ASDIRECTED #1 dosepk 03/28/19 [Rx] Oxygen Therapy Mode: Nasal Cannula Patient Handouts: Chronic Obstructive Pulmonary Disease Exacerbation, Easy-to- Read, Hypoxia, Lactic Acid Test, Urinary Tract Infection, Adult, Acute Respiratory Failure, Adult, Steps to Quit Smoking, Vitamin D Deficiency, Easy-to -Read, Obesity, Adult, Cini-lu-Cuky Referrals: Geovany Matthews MD [Primary Care Provider] - - Discharge Summary/Plan Comment DC Time >30 min.: No - General Info Date of Service: 03/28/19 Admission Dx/Problem (Free Text: Acute on Chronic Respiratory Failure Subjective Update: Patient is doing better today. She says she slept poorly last night because she had back spasms and was coughing. She states that she was not given any medications for this. She states that her cough is unchanged from yesterday, but she is overall feeling better. Functional Status: Reports: Pain Controlled - Review of Systems General: Reports: No Symptoms HEENT: Reports: No Symptoms Pulmonary: Reports: Shortness of Breath, Cough Cardiovascular: Reports: No Symptoms Gastrointestinal: Reports: Constipation Genitourinary: Reports: No Symptoms Musculoskeletal: Reports: No Symptoms Skin: Reports: No Symptoms Neurological: Reports: No Symptoms Psychiatric: Reports: No Symptoms - Patient Data Vitals - Most Recent: Last Vital Signs Temp 97 F 03/28/19 08:00 Pulse 70 03/26/19 15:32 Resp 13 03/28/19 12:00 BP 150/90 H 03/28/19 12:00 Pulse Ox 91 L 03/28/19 12:00 Weight - Most Recent: 100.607 kg I&O - Last 24 hours: Intake & Output 03/27/19 03/28/19 03/28/19 22:59 06:59 14:59 Intake Total 1280 120 Output Total 2450 885 1700 Balance -7203 -590 -8176 Imaging Impressions - Last 24 hrs: CXR 03/25/19 Nothing acute appreciated CXR 03/26/19 1.Minimal atalectasis in right lung base 2. Nothing else acute appreciated CXR 03/27/19 1. Nothing acute appreciated Lab Results - Last 24 hrs: Laboratory Results - last 24 hr 03/27/19 03/28/19 03/28/19 Range/Units 16:28 04:37 04:37 WBC 7.00 (3.98-10.04) K/mm3 RBC 5.44 H (3.98-5.22) M/mm3 Hgb 15.7 D (11.2-15.7) gm/L Hct 49.6 H (34.1-44.9) % MCV 91.2 (79.4-94.8) fl MCH 28.9 (25.6-32.2) pg MCHC 31.7 L (32.2-35.5) g/dl RDW Std Deviation 49.5 H (36.4-46.3) fL Plt Count 119 L (182-369) K/mm3 MPV 11.5 (9.4-12.3) fl Neut % (Auto) 68.8 (34.0-71.1) % Lymph % (Auto) 18.3 L (19.3-51.7) % Orange % (Auto) 12.3 (4.7-12.5) % Eos % (Auto) 0.1 L (0.7-5.8) Baso % (Auto) 0.1 (0.1-1.2) % Neut # (Auto) 4.81 (1.56-6.13) K/mm3 Lymph # (Auto) 1.28 (1.18-3.74) K/mm3 Orange # (Auto) 0.86 H (0.24-0.36) K/mm3 Eos # (Auto) 0.01 L (0.04-0.36) K/mm3 Baso # (Auto) 0.01 (0.01-0.08) K/mm3 Puncture Site ABG pH (7.35-7.45) ABG pCO2 (35.0-45.0) mmHg ABG pO2 (80.0-100.0) mmHg ABG HCO3 (22.0-26.0) meq/L ABG O2 Saturation (96.0-97.0) % ABG Base Excess (-2-2.0) Ja Test A-a Gradient mmHg O2 Delivery Device Oxygen Flow Rate FiO2 (21.00-100.00) % Sodium 145 (136-145) mEq/L Potassium 3.7 (3.5-5.1) mEq/L Chloride 104 (98-107) mEq/L Carbon Dioxide 29 (21-32) mEq/L Anion Gap 15.7 H (5-15) BUN 13 (7-18) mg/dL Creatinine 1.0 (0.55-1.02) mg/dL Est Cr Clr Drug Dosing 66.43 mL/min Estimated GFR (MDRD) 58 (>60) mL/min BUN/Creatinine Ratio 13.0 L (14-18) Glucose 86 (74-106) mg/dL POC Glucose 117 H (70-105) mg/dL Calcium 8.6 (8.5-10.1) mg/dL Magnesium 1.6 L (1.8-2.4) mg/dl C-Reactive Protein 6.7 H* (<1.0) mg/dL 03/28/19 Range/Units 06:08 WBC (3.98-10.04) K/mm3 RBC (3.98-5.22) M/mm3 Hgb (11.2-15.7) gm/L Hct (34.1-44.9) % MCV (79.4-94.8) fl MCH (25.6-32.2) pg MCHC (32.2-35.5) g/dl RDW Std Deviation (36.4-46.3) fL Plt Count (182-369) K/mm3 MPV (9.4-12.3) fl Neut % (Auto) (34.0-71.1) % Lymph % (Auto) (19.3-51.7) % Orange % (Auto) (4.7-12.5) % Eos % (Auto) (0.7-5.8) Baso % (Auto) (0.1-1.2) % Neut # (Auto) (1.56-6.13) K/mm3 Lymph # (Auto) (1.18-3.74) K/mm3 Orange # (Auto) (0.24-0.36) K/mm3 Eos # (Auto) (0.04-0.36) K/mm3 Baso # (Auto) (0.01-0.08) K/mm3 Puncture Site Rt radial ABG pH 7.39 (7.35-7.45) ABG pCO2 52.4 H (35.0-45.0) mmHg ABG pO2 51.0 L (80.0-100.0) mmHg ABG HCO3 31.3 H (22.0-26.0) meq/L ABG O2 Saturation 86.1 L (96.0-97.0) % ABG Base Excess 5.3 H (-2-2.0) Ja Test Positive A-a Gradient 140 mmHg O2 Delivery Device Nasal cannula Oxygen Flow Rate 4.0 FiO2 36.00 (21.00-100.00) % Sodium (136-145) mEq/L Potassium (3.5-5.1) mEq/L Chloride (98-107) mEq/L Carbon Dioxide (21-32) mEq/L Anion Gap (5-15) BUN (7-18) mg/dL Creatinine (0.55-1.02) mg/dL Est Cr Clr Drug Dosing mL/min Estimated GFR (MDRD) (>60) mL/min BUN/Creatinine Ratio (14-18) Glucose (74-106) mg/dL POC Glucose (70-105) mg/dL Calcium (8.5-10.1) mg/dL Magnesium (1.8-2.4) mg/dl C-Reactive Protein (<1.0) mg/dL JENNIFER Results - Last 24 hrs: Microbiology 03/27/19 11:45 Gram Stain - Final Sputum - Expectorated Sputum Culture - Preliminary 03/25/19 21:40 Urine Culture - Preliminary Urine, Catheterized Enterobacter Cloacae Enterococcus Faecalis 03/25/19 15:35 Aerobic Blood Culture - Preliminary Blood - Venous - Lab Draw NO GROWTH AFTER 2 DAYS Anaerobic Blood Culture - Final 03/25/19 15:20 Aerobic Blood Culture - Preliminary Blood - Venous NO GROWTH AFTER 2 DAYS Anaerobic Blood Culture - Preliminary NO GROWTH AFTER 2 DAYS Med Orders - Current: Current Medications Acetaminophen (Tylenol) 650 mg PO Q4H PRN PRN Reason: Pain (Mild 1-3)/fever Hydrocodone Bitart/Acetaminophen ([place] 325-5 Mg) 1 tab PO Q4H PRN PRN Reason: Pain (moderate 4-6) Last Admin: 03/28/19 09:13 Dose: 1 tab Al Hydroxide/Mg Hydroxide (Mag-Al Plus) 30 ml PO Q4H PRN PRN Reason: Gas Albuterol/Ipratropium (Duoneb 3.0-0.5 Mg/3 Ml) 3 ml NEB Q4H PRN PRN Reason: Shortness Of Breath/wheezing Last Admin: 03/28/19 01:56 Dose: 3 ml Albuterol/Ipratropium (Duoneb 3.0-0.5 Mg/3 Ml) 3 ml NEB BID [facility] Last Admin: 03/28/19 08:09 Dose: 3 ml Baclofen (Lioresal) 10 mg PO TID PRN PRN Reason: Spasms Last Admin: 03/28/19 09:13 Dose: 10 mg Bisacodyl (Dulcolax) 5 mg PO DAILY PRN PRN Reason: Constipation Bisacodyl (Dulcolax) 10 mg RECTAL DAILY PRN PRN Reason: Constipation Dextrose/Water (Dextrose 50% In Water) 50 ml IVPUSH ASDIRECTED PRN PRN Reason: Hypoglycemia Docusate Sodium (Colace) 100 mg PO BID PRN PRN Reason: Constipation Duloxetine HCl (Cymbalta) 60 mg PO DAILY [facility] Last Admin: 03/28/19 08:00 Dose: 60 mg Enoxaparin Sodium (Lovenox) 40 mg SUBCUT DAILY [facility] Last Admin: 03/28/19 08:00 Dose: 40 mg Glycopyrrolate (Seebri Neohaler) 15.6 mcg IH BID [facility] Last Admin: 03/28/19 08:10 Dose: 1 cap Hydromorphone HCl (Dilaudid) 0.5 mg IVPUSH Q2H PRN PRN Reason: Pain (severe 7-10) Promethazine HCl 6.25 mg/ (Sodium Chloride) 50.25 mls @ 100 mls/hr IV Q6H PRN PRN Reason: Nausea/Vomiting Norepinephrine Bitartrate 4 mg (/ Dextrose/Water) 250 mls @ 7.5 mls/hr IV TITRATE [facility]; Protocol Levofloxacin (Levaquin) 750 mg PO Q24H [facility] Last Admin: 03/28/19 12:49 Dose: 750 mg Levothyroxine Sodium (Levothyroxine) 150 mcg PO ACBREAKFAST [facility] Last Admin: 03/28/19 05:08 Dose: 150 mcg Loperamide HCl (Imodium) 4 mg PO TID PRN PRN Reason: Diarrhea Lorazepam (Ativan) 1 mg IV Q6H PRN PRN Reason: Anxiety Lorazepam (Ativan) 0.5 mg PO BEDTIME [facility] Last Admin: 03/27/19 21:19 Dose: 0.5 mg Magnesium Citrate (Citrate Of Magnesia) 150 ml PO BID PRN PRN Reason: Constipation Melatonin (Melatonin) 9 mg PO BEDTIME [facility] Last Admin: 03/27/19 21:19 Dose: 9 mg Miscellaneous Information (Remove Patch) 1 ea TRDERM Q24H [facility] Last Admin: 03/28/19 10:29 Dose: Not Given Morphine Sulfate (Morphine) 1 mg IVPUSH Q4H PRN PRN Reason: Dyspnea Multivitamins (Thera) 1 each PO DAILY [facility] Last Admin: 03/28/19 08:00 Dose: 1 each Nicotine (Habitrol) 21 mg TRDERM Q24H [facility] Last Admin: 03/28/19 10:28 Dose: Not Given Ondansetron HCl (Zofran) 4 mg IV Q6H PRN PRN Reason: Nausea/Vomiting Ondansetron HCl (Zofran Odt) 4 mg PO TID PRN PRN Reason: Nausea Oxycodone HCl (Oxycodone) 5 mg PO Q8H PRN PRN Reason: Pain Last Admin: 03/28/19 05:07 Dose: 5 mg Oxymetazoline HCl (Nasal Decongestant [place]) 0 ml DEMETRI BID PRN PRN Reason: Congestion Last Admin: 03/28/19 09:13 Dose: 1 spray Pantoprazole Sodium (Protonix) 40 mg PO BID [facility] Last Admin: 03/28/19 08:00 Dose: 40 mg Fluticasone/Umeclidin/Vilanter 1 Inh Ptom 0 each PO 0600 [facility] Last Admin: 03/28/19 07:39 Dose: Not Given Polyethylene Glycol (Miralax) 17 gm PO DAILY PRN PRN Reason: Constipation Prednisone (Prednisone) 40 mg PO WITHBREAKFAST [facility] Last Admin: 03/28/19 07:51 Dose: 40 mg Pregabalin (Lyrica) 150 mg PO TID [facility] Last Admin: 03/28/19 08:01 Dose: 150 mg Senna/Docusate Sodium (Senna Plus) 1 tab PO BID PRN PRN Reason: Constipation Sodium Chloride (Saline Flush) 10 ml FLUSH ASDIRECTED PRN PRN Reason: Keep Vein Open Last Admin: 03/25/19 16:09 Dose: 10 ml Sodium Chloride ([place] Nasal [place]) 0 ml DEMETRI DAILY PRN PRN Reason: Dryness Last Admin: 03/28/19 04:28 Dose: 1 spray Sumatriptan Succinate (Imitrex) 100 mg PO ASDIRECTED PRN PRN Reason: MIGRAINE Temazepam (Restoril) 7.5 mg PO BEDTIME PRN PRN Reason: Sleep Discontinued Medications Acetaminophen (Tylenol) 650 mg PO Q4H PRN PRN Reason: Pain Albuterol/Ipratropium (Duoneb 3.0-0.5 Mg/3 Ml) 3 ml NEB ONETIME ONE Stop: 03/25/19 14:41 Last Admin: 03/25/19 15:02 Dose: 3 ml Albuterol/Ipratropium (Duoneb 3.0-0.5 Mg/3 Ml) Confirm Administered Dose 3 ml .ROUTE .STK-MED ONE Stop: 03/25/19 18:14 Last Admin: 03/25/19 18:17 Dose: 3 ml Albuterol/Ipratropium (Duoneb 3.0-0.5 Mg/3 Ml) 3 ml NEB BIDRT [facility] Last Admin: 03/28/19 06:01 Dose: Not Given Furosemide (Lasix) 10 mg IVPUSH NOW ONE Stop: 03/26/19 15:52 Last Admin: 03/26/19 16:09 Dose: 10 mg Hydrocortisone Sodium Succinate (Solu-Cortef) 100 mg IVPUSH Q8H [facility] Last Admin: 03/26/19 16:10 Dose: 100 mg Azithromycin 500 mg/ Sodium (Chloride) 250 mls @ 250 mls/hr IV ONETIME ONE Stop: 03/25/19 17:58 Last Admin: 03/25/19 17:39 Dose: 250 mls/hr Magnesium Sulfate/Dextrose 1 (gm/ Premix) 100 mls @ 100 mls/hr IV ONETIME ONE Stop: 03/25/19 20:49 Last Admin: 03/25/19 20:55 Dose: 100 mls/hr Azithromycin 250 mg/ Sodium (Chloride) 250 mls @ 250 mls/hr IV ONETIME ONE Stop: 03/26/19 18:59 Lactated Ringer's (Ringers, Lactated) 1,000 mls @ 999 mls/hr IV .BOLUS ONE Stop: 03/25/19 20:54 Last Admin: 03/25/19 20:54 Dose: 999 mls/hr Ceftriaxone Sodium 1 gm/ (Sodium Chloride) 100 mls @ 200 mls/hr IV Q24H [facility] Last Admin: 03/25/19 22:28 Dose: 200 mls/hr Lactated Ringer's (Ringers, Lactated) 1,000 mls @ 999 mls/hr IV .BOLUS ONE Stop: 03/25/19 23:14 Last Admin: 03/25/19 22:20 Dose: 999 mls/hr Lactated Ringer's (Ringers, Lactated) 500 mls @ 999 mls/hr IV .BOLUS ONE Stop: 03/25/19 23:27 Last Admin: 03/25/19 23:23 Dose: 999 mls/hr Sodium Chloride (Sodium Chloride 0.45%) 1,000 mls @ 125 mls/hr IV ASDIRECTED [facility] Lactated Ringer's (Ringers, Lactated) 1,000 mls @ 999 mls/hr IV .BOLUS ONE Stop: 03/26/19 01:15 Last Admin: 03/26/19 00:45 Dose: 999 mls/hr Piperacillin Sod/Tazobactam (Sod 4.5 gm/ Sodium Chloride) 100 mls @ 25 mls/hr IV Q8H [facility] Last Admin: 03/26/19 17:18 Dose: 25 mls/hr Piperacillin Sod/Tazobactam (Sod 4.5 gm/ Sodium Chloride) 100 mls @ 200 mls/hr IV ONETIME ONE Stop: 03/26/19 01:29 Last Admin: 03/26/19 00:58 Dose: 200 mls/hr Vancomycin HCl 2 gm/ Sodium (Chloride) 500 mls @ 250 mls/hr IV ONETIME ONE Stop: 03/26/19 01:59 Last Admin: 03/26/19 01:09 Dose: 250 mls/hr Sodium Chloride (Sodium Chloride 0.45%) 1,000 mls @ 150 mls/hr IV ASDIRECTED [facility] Last Admin: 03/26/19 01:30 Dose: 150 mls/hr Vancomycin HCl 1 gm/Vancomycin HCl 500 mg/ Sodium Chloride 500 mls @ 250 mls/ hr IV Q12H [facility] Last Admin: 03/26/19 12:52 Dose: 250 mls/hr Lactated Ringer's (Ringers, Lactated) 500 mls @ 999 mls/hr IV .BOLUS ONE Stop: 03/26/19 08:30 Last Admin: 03/26/19 08:36 Dose: 999 mls/hr Magnesium Sulfate 2 gm/ Premix 50 mls @ 25 mls/hr IV ONETIME ONE Stop: 03/26/19 09:59 Last Admin: 03/26/19 08:44 Dose: 25 mls/hr Levofloxacin/Dextrose 750 mg/ (Premix) 150 mls @ 100 mls/hr IV Q24H [facility] Last Admin: 03/27/19 16:26 Dose: 100 mls/hr Lactated Ringer's (Ringers, Lactated) 1,000 mls @ 125 mls/hr IV ASDIRECTED ONE Stop: 03/26/19 17:38 Last Admin: 03/26/19 09:10 Dose: 125 mls/hr Sodium Chloride (Normal Saline) 1,000 mls @ 50 mls/hr IV ASDIRECTED [facility] Last Admin: 03/26/19 13:01 Dose: 50 mls/hr Magnesium Sulfate/Dextrose 1 (gm/ Premix) 100 mls @ 100 mls/hr IV ONETIME ONE Stop: 03/28/19 08:29 Last Admin: 03/28/19 07:51 Dose: 100 mls/hr Insulin Human Lispro (Humalog) 0 unit SUBCUT QIDACANDBED [facility]; Protocol Last Admin: 03/27/19 16:43 Dose: Not Given Methylprednisolone Sodium Succinate (Solu-Medrol) 125 mg IVPUSH ONETIME ONE Stop: 03/25/19 14:42 Last Admin: 03/25/19 15:50 Dose: 125 mg Methylprednisolone Sodium Succinate (Solu-Medrol) 125 mg IVPUSH Q8H [facility] Last Admin: 03/26/19 02:29 Dose: Not Given Miscellaneous Information (Remove Patch) 1 ea TRDERM Q24H [facility] Nicotine (Habitrol) 21 mg TRDERM Q24H [facility] Last Admin: 03/26/19 15:21 Dose: Not Given Non-Formulary Medication (Alpha Lipoic Acid [Alpha Lipoic Acid]) 300 mg PO DAILY [facility] Non-Formulary Medication (Na Phos,M-B/Na Phos,Di-B) 1 applic RECTAL ASDIRECTED PRN PRN Reason: Constipation Non-Formulary Medication (Naloxone Hcl [Narcan]) 4 mg DEMETRI ASDIRECTED [facility] Non-Formulary Medication (Trolamine Salicylate/Aloe Vera) 1 applic TRDERM QID PRN PRN Reason: Pain Pantoprazole Sodium (Protonix Iv) 40 mg IV Q12HR [facility] Last Admin: 03/26/19 08:31 Dose: 40 mg Fluticasone/Umeclidin/Vilanter 1 Inh Ptom 0 each PO DAILY [facility] Last Admin: 03/26/19 09:32 Dose: Not Given Sodium Chloride ([place] Saline Nasal Gel) 0 gm DEMETRI DAILY PRN PRN Reason: Dryness Sumatriptan Succinate (Imitrex) 100 mg PO BID PRN PRN Reason: Headache Vancomycin HCl (Pharmacy To Dose - Vancomycin) 0 dose .XX ASDIRECTED PRN PRN Reason: RX TO DOSE VANCO - Exam Quality Assessment: Reports: Supplemental Oxygen General: Reports: Alert, Oriented, Cooperative, No Acute Distress HEENT: Reports: Pupils Equal, Pupils Reactive, EOMI, Mucous Membr. Moist/[place] Neck: Reports: Supple, Trachea Midline, No JVD. Denies: Lymphadenopathy Lungs: Reports: Crackles. Denies: Rhonchi, Rub, Stridor, Wheezing Cardiovascular: Reports: Regular Rate, Regular Rhythm, No Murmurs. Denies: Murmurs, Gallops, Rubs GI/Abdominal Exam: Normal Bowel Sounds, Soft, Non-Tender, No Organomegaly, No Distention (Female) Exam: Deferred Rectal (Female) Exam: Deferred Back Exam: Reports: Normal Inspection Extremities: Normal Inspection, Non-Tender, No Pedal Edema, Normal Capillary Refill. No: Joint Swelling Skin: Reports: Warm, Dry, Intact Neurological: Reports: No New Focal Deficit, Normal Speech, Normal Tone, Cranial Nerves Intact Psy/Mental Status: Reports: Alert, Normal Affect, Normal Mood <Janice Devine T - Last Filed: 08/24/19 23:21> Discharge Summary - Discharge Diagnosis/Problem(s) (1) Acute respiratory failure with hypoxia and hypercarbia SNOMED Code(s): 265480282 ICD Code: J96.01 - ACUTE RESPIRATORY FAILURE WITH HYPOXIA; J96.02 - ACUTE RESPIRATORY FAILURE WITH HYPERCAPNIA Status: Resolved (2) COPD exacerbation SNOMED Code(s): 116727133 ICD Code: J44.1 - CHRONIC OBSTRUCTIVE PULMONARY DISEASE W (ACUTE) EXACERBATION Status: Resolved (3) Urinary tract infection associated with catheterization of urinary tract SNOMED Code(s): 802160573 ICD Code: T83.511A - I/I REACT D/T INDWELLING URETHRAL CATHETER, INIT; N39.0 - URINARY TRACT INFECTION, SITE NOT SPECIFIED Status: Acute Qualifiers: Indwelling urinary catheter type: indwelling urethral catheter Encounter type: subsequent encounter Qualified Code(s): T83.511D - Infection and inflammatory reaction due to indwelling urethral catheter, subsequent encounter ; N39.0 - Urinary tract infection, site not specified (4) Vitamin D insufficiency SNOMED Code(s): 13348418 ICD Code: E55.9 - VITAMIN D DEFICIENCY, UNSPECIFIED Status: Acute (5) Lactic acid acidosis SNOMED Code(s): 47539214 ICD Code: E87.2 - ACIDOSIS Status: Resolved (6) Hypernatremia SNOMED Code(s): 959138270 ICD Code: E87.0 - HYPEROSMOLALITY AND HYPERNATREMIA Status: Resolved (7) Obesity (BMI 30.0-34.9) SNOMED Code(s): 965546556639031 ICD Code: E66.9 - OBESITY, UNSPECIFIED Status: Chronic (8) Nicotine use disorder SNOMED Code(s): 26035091 ICD Code: F17.200 - NICOTINE DEPENDENCE, UNSPECIFIED, UNCOMPLICATED Status : Chronic - Patient Summary/Data Operative Procedure(s) Performed: None Complications: None Consults: Consultations 03/25/19 19:44 Consult to Case Management/Nurse Manager [CONS] Routine Consult to Precast Molder [CONS] Routine OT Evaluation and Treatment [CONS] Routine PT Evaluation and Treatment [CONS] Routine Respiratory Care Assess and Treatment [CONS] Routine Labs Pending at D/C: None Recommended Follow-up Testing/Procedures: None Planned Operative Procedure(s) after DC: None Hospital Course: Patient primarily admitted for acute on chronic respiratory failure associated with hypotension but was also diagnosed with UTI. She received routine respiratory care and NIPPV to improve her respiratory status. Her hypotension gradually resolved with volume resuscitation. As for her UTI, she received intravenous antibiotics for initial treatment and then immediate switched to oral dosing once her urine came back with culture and sensitivity. Her hospital course was uncomplicated and the rest of her chronic medical illness remained stable during this hospitalization. She was released with additional course of antibiotic take and was advised to follow up with her family doctor after discharge. - Patient Data Vitals - Most Recent: Last Vital Signs Temp 36.1 C 03/28/19 08:00 Pulse 70 03/26/19 15:32 Resp 13 03/28/19 12:00 BP 150/90 H 03/28/19 12:00 Pulse Ox 91 L 03/28/19 12:00 I&O - Last 24 hours: Intake & Output 03/28/19 03/28/19 03/29/19 14:59 22:59 06:59 Intake Total 120 Output Total 1700 Balance -1580 Lab Results - Last 24 hrs: Laboratory Results - last 24 hr 03/28/19 03/28/19 03/28/19 Range/Units 04:37 04:37 06:08 WBC 7.00 (3.98-10.04) K/mm3 RBC 5.44 H (3.98-5.22) M/mm3 Hgb 15.7 D (11.2-15.7) gm/L Hct 49.6 H (34.1-44.9) % MCV 91.2 (79.4-94.8) fl MCH 28.9 (25.6-32.2) pg MCHC 31.7 L (32.2-35.5) g/dl RDW Std Deviation 49.5 H (36.4-46.3) fL Plt Count 119 L (182-369) K/mm3 MPV 11.5 (9.4-12.3) fl Neut % (Auto) 68.8 (34.0-71.1) % Lymph % (Auto) 18.3 L (19.3-51.7) % Orange % (Auto) 12.3 (4.7-12.5) % Eos % (Auto) 0.1 L (0.7-5.8) Baso % (Auto) 0.1 (0.1-1.2) % Neut # (Auto) 4.81 (1.56-6.13) K/mm3 Lymph # (Auto) 1.28 (1.18-3.74) K/mm3 [place] # (Auto) 0.86 H (0.24-0.36) K/mm3 Eos # (Auto) 0.01 L (0.04-0.36) K/mm3 Baso # (Auto) 0.01 (0.01-0.08) K/mm3 Puncture Site Rt radial ABG pH 7.39 (7.35-7.45) ABG pCO2 52.4 H (35.0-45.0) mmHg ABG pO2 51.0 L (80.0-100.0) mmHg ABG HCO3 31.3 H (22.0-26.0) meq/L ABG O2 Saturation 86.1 L (96.0-97.0) % ABG Base Excess 5.3 H (-2-2.0) Ja Test Positive A-a Gradient 140 mmHg O2 Delivery Device Nasal cannula Oxygen Flow Rate 4.0 FiO2 36.00 (21.00-100.00) % Sodium 145 (136-145) mEq/L Potassium 3.7 (3.5-5.1) mEq/L Chloride 104 (98-107) mEq/L Carbon Dioxide 29 (21-32) mEq/L Anion Gap 15.7 H (5-15) BUN 13 (7-18) mg/dL Creatinine 1.0 (0.55-1.02) mg/dL Est Cr Clr Drug Dosing 66.43 mL/min Estimated GFR (MDRD) 58 (>60) mL/min BUN/Creatinine Ratio 13.0 L (14-18) Glucose 86 (74-106) mg/dL Calcium 8.6 (8.5-10.1) mg/dL Magnesium 1.6 L (1.8-2.4) mg/dl C-Reactive Protein 6.7 H* (<1.0) mg/dL JENNIFER Results - Last 24 hrs: Microbiology 03/25/19 15:35 Aerobic Blood Culture - Preliminary Blood - Venous - Lab Draw NO GROWTH AFTER 3 DAYS Anaerobic Blood Culture - Final 03/25/19 15:20 Aerobic Blood Culture - Preliminary Blood - Venous NO GROWTH AFTER 3 DAYS Anaerobic Blood Culture - Preliminary NO GROWTH AFTER 3 DAYS 03/27/19 11:45 Gram Stain - Final Sputum - Expectorated Sputum Culture - Preliminary 03/25/19 21:40 Urine Culture - Preliminary Urine, Catheterized Enterobacter Cloacae Enterococcus Faecalis Med Orders - Current: Current Medications Discontinued Medications Acetaminophen (Tylenol) 650 mg PO Q4H PRN PRN Reason: Pain (Mild 1-3)/fever Acetaminophen (Tylenol) 650 mg PO Q4H PRN PRN Reason: Pain Hydrocodone Bitart/Acetaminophen ([place] 325-5 Mg) 1 tab PO Q4H PRN PRN Reason: Pain (moderate 4-6) Last Admin: 03/28/19 09:13 Dose: 1 tab Al Hydroxide/Mg Hydroxide (Mag-Al Plus) 30 ml PO Q4H PRN PRN Reason: Gas Albuterol/Ipratropium (Duoneb 3.0-0.5 Mg/3 Ml) 3 ml NEB ONETIME ONE Stop: 03/25/19 14:41 Last Admin: 03/25/19 15:02 Dose: 3 ml Albuterol/Ipratropium (Duoneb 3.0-0.5 Mg/3 Ml) Confirm Administered Dose 3 ml .ROUTE .STK-MED ONE Stop: 03/25/19 18:14 Last Admin: 03/25/19 18:17 Dose: 3 ml Albuterol/Ipratropium (Duoneb 3.0-0.5 Mg/3 Ml) 3 ml NEB Q4H PRN PRN Reason: Shortness Of Breath/wheezing Last Admin: 03/28/19 01:56 Dose: 3 ml Albuterol/Ipratropium (Duoneb 3.0-0.5 Mg/3 Ml) 3 ml NEB BIDRT [facility] Last Admin: 03/28/19 06:01 Dose: Not Given Albuterol/Ipratropium (Duoneb 3.0-0.5 Mg/3 Ml) 3 ml NEB BID [facility] Last Admin: 03/28/19 08:09 Dose: 3 ml Baclofen (Lioresal) 10 mg PO TID PRN PRN Reason: Spasms Last Admin: 03/28/19 09:13 Dose: 10 mg Bisacodyl (Dulcolax) 5 mg PO DAILY PRN PRN Reason: Constipation Bisacodyl (Dulcolax) 10 mg RECTAL DAILY PRN PRN Reason: Constipation Dextrose/Water (Dextrose 50% In Water) 50 ml IVPUSH ASDIRECTED PRN PRN Reason: Hypoglycemia Docusate Sodium (Colace) 100 mg PO BID PRN PRN Reason: Constipation Duloxetine HCl (Cymbalta) 60 mg PO DAILY [facility] Last Admin: 03/28/19 08:00 Dose: 60 mg Enoxaparin Sodium (Lovenox) 40 mg SUBCUT DAILY [facility] Last Admin: 03/28/19 08:00 Dose: 40 mg Furosemide (Lasix) 10 mg IVPUSH NOW ONE Stop: 03/26/19 15:52 Last Admin: 03/26/19 16:09 Dose: 10 mg Glycopyrrolate (Seebri Neohaler) 15.6 mcg IH BID [facility] Last Admin: 03/28/19 08:10 Dose: 1 cap Hydrocortisone Sodium Succinate (Solu-Cortef) 100 mg IVPUSH Q8H [facility] Last Admin: 03/26/19 16:10 Dose: 100 mg Hydromorphone HCl (Dilaudid) 0.5 mg IVPUSH Q2H PRN PRN Reason: Pain (severe 7-10) Azithromycin 500 mg/ Sodium (Chloride) 250 mls @ 250 mls/hr IV ONETIME ONE Stop: 03/25/19 17:58 Last Admin: 03/25/19 17:39 Dose: 250 mls/hr Promethazine HCl 6.25 mg/ (Sodium Chloride) 50.25 mls @ 100 mls/hr IV Q6H PRN PRN Reason: Nausea/Vomiting Magnesium Sulfate/Dextrose 1 (gm/ Premix) 100 mls @ 100 mls/hr IV ONETIME ONE Stop: 03/25/19 20:49 Last Admin: 03/25/19 20:55 Dose: 100 mls/hr Azithromycin 250 mg/ Sodium (Chloride) 250 mls @ 250 mls/hr IV ONETIME ONE Stop: 03/26/19 18:59 Lactated Ringer's (Ringers, Lactated) 1,000 mls @ 999 mls/hr IV .BOLUS ONE Stop: 03/25/19 20:54 Last Admin: 03/25/19 20:54 Dose: 999 mls/hr Ceftriaxone Sodium 1 gm/ (Sodium Chloride) 100 mls @ 200 mls/hr IV Q24H [facility] Last Admin: 03/25/19 22:28 Dose: 200 mls/hr Lactated Ringer's (Ringers, Lactated) 1,000 mls @ 999 mls/hr IV .BOLUS ONE Stop: 03/25/19 23:14 Last Admin: 03/25/19 22:20 Dose: 999 mls/hr Lactated Ringer's (Ringers, Lactated) 500 mls @ 999 mls/hr IV .BOLUS ONE Stop: 03/25/19 23:27 Last Admin: 03/25/19 23:23 Dose: 999 mls/hr Sodium Chloride (Sodium Chloride 0.45%) 1,000 mls @ 125 mls/hr IV ASDIRECTED [facility] Lactated Ringer's (Ringers, Lactated) 1,000 mls @ 999 mls/hr IV .BOLUS ONE Stop: 03/26/19 01:15 Last Admin: 03/26/19 00:45 Dose: 999 mls/hr Piperacillin Sod/Tazobactam (Sod 4.5 gm/ Sodium Chloride) 100 mls @ 25 mls/hr IV Q8H [facility] Last Admin: 03/26/19 17:18 Dose: 25 mls/hr Piperacillin Sod/Tazobactam (Sod 4.5 gm/ Sodium Chloride) 100 mls @ 200 mls/hr IV ONETIME ONE Stop: 03/26/19 01:29 Last Admin: 03/26/19 00:58 Dose: 200 mls/hr Vancomycin HCl 2 gm/ Sodium (Chloride) 500 mls @ 250 mls/hr IV ONETIME ONE Stop: 03/26/19 01:59 Last Admin: 03/26/19 01:09 Dose: 250 mls/hr Norepinephrine Bitartrate 4 mg (/ Dextrose/Water) 250 mls @ 7.5 mls/hr IV TITRATE [place]; Protocol Sodium Chloride (Sodium Chloride 0.45%) 1,000 mls @ 150 mls/hr IV ASDIRECTED [facility] Last Admin: 03/26/19 01:30 Dose: 150 mls/hr Vancomycin HCl 1 gm/Vancomycin HCl 500 mg/ Sodium Chloride 500 mls @ 250 mls/ hr IV Q12H [facility] Last Admin: 03/26/19 12:52 Dose: 250 mls/hr Lactated Ringer's (Ringers, Lactated) 500 mls @ 999 mls/hr IV .BOLUS ONE Stop: 03/26/19 08:30 Last Admin: 03/26/19 08:36 Dose: 999 mls/hr Magnesium Sulfate 2 gm/ Premix 50 mls @ 25 mls/hr IV ONETIME ONE Stop: 03/26/19 09:59 Last Admin: 03/26/19 08:44 Dose: 25 mls/hr Levofloxacin/Dextrose 750 mg/ (Premix) 150 mls @ 100 mls/hr IV Q24H [facility] Last Admin: 03/27/19 16:26 Dose: 100 mls/hr Lactated Ringer's (Ringers, Lactated) 1,000 mls @ 125 mls/hr IV ASDIRECTED ONE Stop: 03/26/19 17:38 Last Admin: 03/26/19 09:10 Dose: 125 mls/hr Sodium Chloride (Normal Saline) 1,000 mls @ 50 mls/hr IV ASDIRECTED [facility] Last Admin: 03/26/19 13:01 Dose: 50 mls/hr Magnesium Sulfate/Dextrose 1 (gm/ Premix) 100 mls @ 100 mls/hr IV ONETIME ONE Stop: 03/28/19 08:29 Last Admin: 03/28/19 07:51 Dose: 100 mls/hr Insulin Human Lispro (Humalog) 0 unit SUBCUT QIDACANDBED [facility]; Protocol Last Admin: 03/27/19 16:43 Dose: Not Given Levofloxacin (Levaquin) 750 mg PO Q24H [facility] Last Admin: 03/28/19 12:49 Dose: 750 mg Levothyroxine Sodium (Levothyroxine) 150 mcg PO ACBREAKFAST [facility] Last Admin: 03/28/19 05:08 Dose: 150 mcg Loperamide HCl (Imodium) 4 mg PO TID PRN PRN Reason: Diarrhea Lorazepam (Ativan) 1 mg IV Q6H PRN PRN Reason: Anxiety Lorazepam (Ativan) 0.5 mg PO BEDTIME [facility] Last Admin: 03/27/19 21:19 Dose: 0.5 mg Magnesium Citrate (Citrate Of Magnesia) 150 ml PO BID PRN PRN Reason: Constipation Melatonin (Melatonin) 9 mg PO BEDTIME [facility] Last Admin: 03/27/19 21:19 Dose: 9 mg Methylprednisolone Sodium Succinate (Solu-Medrol) 125 mg IVPUSH ONETIME ONE Stop: 03/25/19 14:42 Last Admin: 03/25/19 15:50 Dose: 125 mg Methylprednisolone Sodium Succinate (Solu-Medrol) 125 mg IVPUSH Q8H [facility] Last Admin: 03/26/19 02:29 Dose: Not Given Miscellaneous Information (Remove Patch) 1 ea TRDERM Q24H [facility] Miscellaneous Information (Remove Patch) 1 ea TRDERM Q24H [facility] Last Admin: 03/28/19 10:29 Dose: Not Given Morphine Sulfate (Morphine) 1 mg IVPUSH Q4H PRN PRN Reason: Dyspnea Multivitamins (Thera) 1 each PO DAILY [facility] Last Admin: 03/28/19 08:00 Dose: 1 each Nicotine (Habitrol) 21 mg TRDERM Q24H [facility] Last Admin: 03/26/19 15:21 Dose: Not Given Nicotine (Habitrol) 21 mg TRDERM Q24H [facility] Last Admin: 03/28/19 10:28 Dose: Not Given Non-Formulary Medication (Alpha Lipoic Acid [Alpha Lipoic Acid]) 300 mg PO DAILY [facility] Non-Formulary Medication (Na Phos,M-B/Na Phos,Di-B) 1 applic RECTAL ASDIRECTED PRN PRN Reason: Constipation Non-Formulary Medication (Naloxone Hcl [Narcan]) 4 mg DEMETRI ASDIRECTED [facility] Non-Formulary Medication (Trolamine Salicylate/Aloe Vera) 1 applic TRDERM QID PRN PRN Reason: Pain Ondansetron HCl (Zofran) 4 mg IV Q6H PRN PRN Reason: Nausea/Vomiting Ondansetron HCl (Zofran Odt) 4 mg PO TID PRN PRN Reason: Nausea Oxycodone HCl (Oxycodone) 5 mg PO Q8H PRN PRN Reason: Pain Last Admin: 03/28/19 05:07 Dose: 5 mg Oxymetazoline HCl (Nasal Decongestant [place]) 0 ml DEMETRI BID PRN PRN Reason: Congestion Last Admin: 03/28/19 09:13 Dose: 1 spray Pantoprazole Sodium (Protonix Iv) 40 mg IV Q12HR [facility] Last Admin: 03/26/19 08:31 Dose: 40 mg Pantoprazole Sodium (Protonix) 40 mg PO BID [facility] Last Admin: 03/28/19 08:00 Dose: 40 mg Fluticasone/Umeclidin/Vilanter 1 Inh Ptom 0 each PO DAILY [facility] Last Admin: 03/26/19 09:32 Dose: Not Given Fluticasone/Umeclidin/Vilanter 1 Inh Ptom 0 each PO 0600 [facility] Last Admin: 03/28/19 07:39 Dose: Not Given Polyethylene Glycol (Miralax) 17 gm PO DAILY PRN PRN Reason: Constipation Prednisone (Prednisone) 40 mg PO WITHBREAKFAST [facility] Last Admin: 03/28/19 07:51 Dose: 40 mg Pregabalin (Lyrica) 150 mg PO TID [facility] Last Admin: 03/28/19 08:01 Dose: 150 mg Senna/Docusate Sodium (Senna Plus) 1 tab PO BID PRN PRN Reason: Constipation Sodium Chloride (Saline Flush) 10 ml FLUSH ASDIRECTED PRN PRN Reason: Keep Vein Open Last Admin: 03/25/19 16:09 Dose: 10 ml Sodium Chloride ([place] Saline Nasal Gel) 0 gm DEMETRI DAILY PRN PRN Reason: Dryness Sodium Chloride ([place] Nasal [place]) 0 ml DEMETRI DAILY PRN PRN Reason: Dryness Last Admin: 03/28/19 04:28 Dose: 1 spray Sumatriptan Succinate (Imitrex) 100 mg PO BID PRN PRN Reason: Headache Sumatriptan Succinate (Imitrex) 100 mg PO ASDIRECTED PRN PRN Reason: MIGRAINE Temazepam (Restoril) 7.5 mg PO BEDTIME PRN PRN Reason: Sleep Vancomycin HCl (Pharmacy To Dose - Vancomycin) 0 dose .XX ASDIRECTED PRN PRN Reason: RX TO DOSE VANCO
== END 2019-03-28 13:50 | disposition other institution (70) | DRG 189 ==
LOC: JD.ED 14:33 → JD.MS 17:31 → JD.ICU 20:25
PROVIDERS: ADMIT Internal Medicine; ATTEND Internal Medicine
PROC: 5A09457 Assistance with Respiratory Ventilation, 24-96 Consecutive Hours, Continuous Positive Airway Pressure (ICD-10-PCS; principal; 2019-03-25)
DX: J96.21 Acute and chronic respiratory failure with hypoxia (principal); J44.0 Chronic obstructive pulmonary disease with (acute) lower respiratory infection; J18.9 Pneumonia, unspecified organism; N39.0 Urinary tract infection, site not specified; T83.511A Infection and inflammatory reaction due to indwelling urethral catheter, initial encounter; J96.11 Chronic respiratory failure with hypoxia; K59.00 Constipation, unspecified; N31.9 Neuromuscular dysfunction of bladder, unspecified; Z93.6 Other artificial openings of urinary tract status; J44.1 Chronic obstructive pulmonary disease with (acute) exacerbation; E87.2 Acidosis; G82.20 Paraplegia, unspecified; E87.0 Hyperosmolality and hypernatremia; J96.22 Acute and chronic respiratory failure with hypercapnia; F11.20 Opioid dependence, uncomplicated; E03.9 Hypothyroidism, unspecified; I10 Essential (primary) hypertension; Z68.30 Body mass index [BMI] 30.0-30.9, adult; Z86.14 Personal history of Methicillin resistant Staphylococcus aureus infection; F17.200 Nicotine dependence, unspecified, uncomplicated; Z88.1 Allergy status to other antibiotic agents; Z79.890 Hormone replacement therapy; Z79.891 Long term (current) use of opiate analgesic; G25.81 Restless legs syndrome; Z79.52 Long term (current) use of systemic steroids; G47.00 Insomnia, unspecified; F41.9 Anxiety disorder, unspecified; F32.9 Major depressive disorder, single episode, unspecified; E66.9 Obesity, unspecified; I95.9 Hypotension, unspecified; F17.210 Nicotine dependence, cigarettes, uncomplicated; E55.9 Vitamin D deficiency, unspecified; E89.0 Postprocedural hypothyroidism; K59.09 Other constipation; G89.29 Other chronic pain; M54.9 Dorsalgia, unspecified; G43.909 Migraine, unspecified, not intractable, without status migrainosus; J45.909 Unspecified asthma, uncomplicated; Y84.6 Urinary catheterization as the cause of abnormal reaction of the patient, or of later complication, without mention of misadventure at the time of the procedure; Z79.51 Long term (current) use of inhaled steroids; Z88.8 Allergy status to other drugs, medicaments and biological substances; Z90.89 Acquired absence of other organs; Z68.32 Body mass index [BMI] 32.0-32.9, adult; Z98.890 Other specified postprocedural states; Z90.710 Acquired absence of both cervix and uterus; Z79.899 Other long term (current) drug therapy
CPT/HCPCS: 36415; 71045; 80053; 83605; 85025; 86140; 87040 ×2; 94640; 96374; 99285; J2930; 36600; 80048; 81001; 82306; 82533; 82803; 82962; 83735; 84439; 84443; 85379; 87070; 87086; 87088; 87186; 87205; 87641; 94660; 94668; 97161-GP; 97165-GO; 97530-GO; 99284; A9270-GY; C9113; J0456; J0696; J1650; J1720; J1956; J2543; J3370; J3475; J7030; J7040; J7050; J7120; J7620-GY

== ENCOUNTER 2019-06-10 07:21 | Inpatient (IN) | payer MEDICAID ==
[2019-06-10] MEDS ORDERED: Sodium Chloride 0.9% 10 ML Syringe FLUSH PRN (08:14)
[2019-06-10] MEDS ORDERED: Sodium Chloride 0.9% 1,000 ML IV SCH (08:15)
[2019-06-10] MEDS ORDERED: Vancomycin 1.75 GM in Sodium Chloride 0.9% 500 ML IV ONE (08:48)
--- NOTE | 2019-06-10 08:53 | EDM.PDOC ---
ED HPI GENERAL MEDICAL PROBLEM - General Chief Complaint: Fever Stated Complaint: LOW GRADE FEVER AND SHAKING Time Seen by Provider: 06/10/19 07:54 Source of Information: Reports: Patient, Longterm Records, RN Notes Reviewed - History of Present Illness INITIAL COMMENTS - FREE TEXT/NARRATIVE: 54-year-old lady has been brought here from [facility] for evaluation of fever, chills that is reported to have started Tuesday evening, 1-1 /2 days ago with continued fever yesterday and again this morning. She has developed erythema of her right lower leg that was first noticed last evening that also continues today. She is paraplegic from a "prior back surgery" so she has no pain or feeling in her legs or feet. She does deny chest pain cough or sore throat. Dominant pain nausea or vomiting. Does have an indwelling Dixon catheter as well. Back Pain Score (Numeric/FACES): 7 - Related Data Allergies Allergy/AdvReac Type Severity Reaction Status Date / Time cefixime [From Suprax] Allergy Mild Itching Verified 06/10/19 07:48 Home Meds: Home Meds Acetaminophen [Tylenol] 650 mg PO Q4H PRN 11/17/18 [History] Alpha Lipoic Acid 300 mg PO QPM 11/17/18 [History] Baclofen 20 mg PO QID 11/17/18 [History] Bisacodyl 10 mg RC DAILY PRN 11/17/18 [History] LORazepam [Ativan] 0.5 mg PO BEDTIME 11/17/18 [History] Levothyroxine 150 mcg PO ACBREAKFAST 11/17/18 [History] Loperamide HCl [Imodium A-D] 2 mg PO TID PRN 11/17/18 [History] Magnesium Citrate 150 ml PO BID PRN 11/17/18 [History] Multivitamin [Daily Multiple Vitamin] 1 tab PO DAILY 11/17/18 [History] Naproxen Sodium [Aleve] 440 mg PO BEDTIME 11/17/18 [History] Ondansetron [Zofran ODT] 4 mg PO TID PRN 11/17/18 [History] SUMAtriptan Succinate [Imitrex] 100 mg PO BID PRN 11/17/18 [History] Trolamine Salicylate/Aloe Vera [Aspercreme 10% Cream] 1 applic TRDERM QID PRN [History] Albuterol Sulfate 1 vial INH BID PRN 01/18/19 [History] Mag Hydrox/Al Hydrox/Simeth [[place]] 30 ml PO Q4H PRN 01/18/19 [History] Melatonin 10 mg PO BEDTIME 01/18/19 [History] Na Phos,M-B/Na Phos,DI-B [Fleet Enema] 1 applic RECTAL ASDIRECTED PRN 01/18/19 [ History] Naloxone HCl [Narcan] 4 mg DEMETRI ASDIRECTED 01/18/19 [History] Polyethylene Glycol 3350 [MiraLAX] 17 gm PO DAILY PRN 01/18/19 [History] Pregabalin [Lyrica] 175 mg PO DAILY 01/18/19 [History] Albuterol/Ipratropium [DuoNeb 3.0-0.5 MG/3 ML] 3 ml NEB Q6H PRN #120 neb [Rx] oxyCODONE 5 mg PO Q8H PRN #30 tablet 01/22/19 [Rx] Albuterol Sulfate [Albuterol Sulfate Hfa] 8.5 gm IH Q6HR PRN 03/25/19 [History] Fluticasone/Umeclidin/Vilanter [Trelegy Ellipta 100-62.5-25] 1 inh PO DAILY [History] Sodium Chloride/Aloe Vera [[place] Saline Nasal Gel Barker] 1 spray DEMETRI DAILY PRN [History] Menthol [Biofreeze] 1 applic TOP ASDIRECTED PRN 06/10/19 [History] Mirtazapine 7.5 mg PO QPM 06/10/19 [History] Oxymetazoline [Afrin Original 0.05% Nasal Barker] 1 spray INH BID PRN 06/10/19 [ History] Polyvinyl Alcohol/Povidone/Pf [Refresh Classic Eye Drops] 1 drop EYEBOTH TID 10/24 [History] Pregabalin [Lyrica] 150 mg PO BID 06/10/19 [History] Varenicline Tartrate [Chantix] 1 mg PO DAILY 06/10/19 [History] Past Medical History HEENT History: Reports: None, Other (See Below) Other HEENT History: nasal congestion Cardiovascular History: Reports: Hypertension Respiratory History: Reports: Intubation, Previous Other Respiratory History: chronic respiratory failure with hypoxia Gastrointestinal History: Reports: Chronic Constipation, Other (See Below) Other Gastrointestinal History: nausea Genitourinary History: Reports: Neurogenic Bladder, UTI, Recurrent, Other (See Below) Other Genitourinary History: suprapubic catheter, acute kidney injury, chronic UTI. 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 Most recent back surgery was in March of 2015. postlaminectomy syndrome; cramps; spasms'. 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 radiculopathy; restless leg syndrome Psychiatric History: Reports: Anxiety, Depression, Other (See Below) Other Psychiatric History: opioid dependence; insomnia Endocrine/Metabolic History: Reports: Hypothyroidism, Obesity/BMI 30+ Hematologic History: Reports: None Immunologic History: Reports: None Oncologic (Cancer) History: Reports: None Dermatologic History: Reports: Other (See Below) Other Dermatologic History: pressure ulcer to buttocks - Infectious Disease History Infectious Disease History: Reports: Chicken Pox, Measles, MRSA Other Infectious Disease History: hx mrsa in urine - Past Surgical History Head Surgeries/Procedures: Reports: Other (See Below) HEENT Surgical History: Reports: Oral Surgery, Tonsillectomy Other HEENT Surgeries/Procedures: recurrent oral aphthae Cardiovascular Surgical History: Reports: None Respiratory Surgical History: Reports: None GI Surgical History: Reports: None Female Surgical History: Reports: Hysterectomy, Suprapubic Catheter Placement Endocrine Surgical History: Reports: Thyroidectomy Neurological Surgical History: Reports: Lumbar Spine Oncologic Surgical History: Reports: None Social & Family History - Family History Family Medical History: Noncontributory - Tobacco Use Smoking Status *Q: Current Every Day Smoker Years of Tobacco use: 30 Packs/Tins Daily: 0.5 - Caffeine Use Caffeine Use: Reports: Coffee - Recreational Drug Use Recreational Drug Use: No - Living Situation & Occupation Living situation: Reports: , with Significant Other (Boyfriend) Occupation: Disabled ED ROS GENERAL - Review of Systems Review Of Systems: See Below Constitutional: Reports: Fever, Chills HEENT: Denies: Sinus Problem, Throat Pain Respiratory: Denies: Shortness of Breath, Cough Cardiovascular: Denies: Chest Pain GI/Abdominal: Denies: Nausea, Vomiting : Reports: Other (Patient has chronic indwelling Dixon catheter) Musculoskeletal: Reports: Other (Erythema, warmth right lower leg) Skin: Reports: Erythema (Right lower leg) Neurological: Reports: Weakness (Chronic paralysis bilateral lower extremities) ED EXAM, SEPSIS - Physical Exam Exam: See Below General Appearance: Alert, No Apparent Distress Eye Exam: Bilateral Eye: PERRL Throat/Mouth: Normal Inspection, Normal Oropharynx Head: Atraumatic. No: Facial Swelling Neck: Normal Inspection Respiratory/Chest: No Respiratory Distress, Lungs Clear, Normal Breath Sounds. No: Rhonchi, Wheezing Cardiovascular: Tachycardia GI/Abdominal Exam: Soft, Non-Tender Extremities: Increased Warmth, Redness (Right lower leg) Neurological: Other (Complete paralysis bilateral lower extremities) Skin: Erythema (Right lower leg) Course - Vital Signs Last Recorded V/S: Last Vital Signs Temp 101.9 F H 06/10/19 07:48 Pulse 116 H 06/10/19 07:48 Resp 17 06/10/19 07:48 BP 101/52 L 06/10/19 07:48 Pulse Ox 80 L 06/10/19 07:48 - Orders/Labs/Meds Orders: Active Orders 24 hr Category Date Time Status Oxygen Therapy [RC] ASDIRECTED Care 06/10/19 08:13 Active Peripheral IV Care [RC] . DIRECTED Care 06/10/19 08:14 Active Chest 1V Frontal [CR] Stat Exams 06/10/19 13:24 Taken CULTURE BLOOD [BC] Stat Lab 06/10/19 08:54 Received CULTURE URINE [RM] Stat Lab 06/10/19 08:40 Received Sodium Chloride 0.9% [Normal Saline] 1,000 ml Med 06/10/19 08:15 Active IV ONETIME Sodium Chloride 0.9% [Saline Flush] Med 06/10/19 08:14 Active 10 ml FLUSH ASDIRECTED PRN cefTRIAXone [Rocephin] 1 gm Med 06/10/19 13:30 Active Sodium Chloride 0.9% [Normal Saline] 100 ml IV Q24H Peripheral IV Insertion Adult [OM.PC] Stat Oth 06/10/19 08:13 Ordered Medication Orders Sodium Chloride (Normal Saline) 1,000 mls @ 999 mls/hr IV ONETIME SHAWNA Last Admin: 06/10/19 09:12 Dose: 999 mls/hr Ceftriaxone Sodium 1 gm/ (Sodium Chloride) 100 mls @ 200 mls/hr IV Q24H SHAWNA Last Admin: 06/10/19 13:45 Dose: 200 mls/hr Lactated Ringer's (Ringers, Lactated) 1,000 mls @ 125 mls/hr IV ASDIRECTED SHAWNA Levothyroxine Sodium (Levothyroxine) 150 mcg PO ACBREAKFAST SHAWNA Non-Formulary Medication (Alpha Lipoic Acid [Alpha Lipoic Acid]) 300 mg PO QPM SHAWNA Non-Formulary Medication (Baclofen [Baclofen]) 20 mg PO QID SHAWNA Non-Formulary Medication (Fluticasone/Umeclidin/Vilanter) 1 inh PO DAILY SHAWNA Non-Formulary Medication (Lorazepam) 0.5 mg PO BEDTIME SHAWNA Non-Formulary Medication (Melatonin [Melatonin]) 10 mg PO BEDTIME SHAWNA Non-Formulary Medication (Mirtazapine [Mirtazapine]) 7.5 mg PO QPM SHAWNA Non-Formulary Medication (Multivitamins) 1 tab PO DAILY SHAWNA Non-Formulary Medication (Naproxen Sodium) 440 mg PO BEDTIME SHAWNA Non-Formulary Medication (Polyvinyl Alcohol/Povidone/Pf [Refresh Classic Eye Drops]) 1 drop EYEBOTH TID SHAWNA Non-Formulary Medication (Pregabalin) 150 mg PO BID SHAWNA Non-Formulary Medication (Pregabalin) 175 mg PO DAILY SHAWNA Non-Formulary Medication (Varenicline Tartrate [Chantix]) 1 mg PO DAILY SHAWNA Ondansetron HCl (Zofran Odt) 4 mg PO Q6H PRN PRN Reason: nausea, able to take PO Ondansetron HCl (Zofran) 4 mg IV Q6H PRN PRN Reason: Nausea/Vomiting Oxycodone HCl (Oxycodone) 5 mg PO Q8H PRN PRN Reason: Pain Sodium Chloride (Saline Flush) 10 ml FLUSH ASDIRECTED PRN PRN Reason: Keep Vein Open Last Admin: 06/10/19 09:12 Dose: 10 ml Labs: Laboratory Tests 06/10/19 06/10/19 06/10/19 Range/Units 08:35 08:35 08:35 WBC 17.15 H (3.98-10.04) K/mm3 RBC 4.89 (3.98-5.22) M/mm3 Hgb 14.2 D (11.2-15.7) gm/dl Hct 44.8 (34.1-44.9) % MCV 91.6 (79.4-94.8) fl MCH 29.0 (25.6-32.2) pg MCHC 31.7 L (32.2-35.5) g/dl RDW Std Deviation 52.1 H (36.4-46.3) fL Plt Count 194 D (182-369) K/mm3 MPV 10.8 (9.4-12.3) fl Neutrophils % (Manual) 83 H (40-60) % Band Neutrophils % 10 (0-10) % Lymphocytes % (Manual) 4 L (20-40) % Atypical Lymphs % 0 % Monocytes % (Manual) 3 (2-10) % Eosinophils % (Manual) 0 L (0.7-5.8) % Basophils % (Manual) 0 L (0.1-1.2) Platelet Estimate Adequate Plt Morphology Comment Normal Polychromasia 1+ slight RBC Morph Comment Not Reportable PT (9.7-12.0) SECONDS INR Sodium 140 (136-145) mEq/L Potassium 4.5 (3.5-5.1) mEq/L Chloride 102 (98-107) mEq/L Carbon Dioxide 30 (21-32) mEq/L Anion Gap 12.5 (5-15) BUN 14 (7-18) mg/dL Creatinine 1.1 H (0.55-1.02) mg/dL Est Cr Clr Drug Dosing 59.68 mL/min Estimated GFR (MDRD) 51 (>60) mL/min BUN/Creatinine Ratio 12.7 L (14-18) Glucose 151 H (74-106) mg/dL Lactic Acid (0.4-2.0) mmol/L Calcium 9.3 (8.5-10.1) mg/dL Total Bilirubin 0.9 (0.2-1.0) mg/dL AST 21 (15-37) U/L ALT 34 (14-59) U/L Alkaline Phosphatase 135 H (46-116) U/L C-Reactive Protein 18.7 H* (<1.0) mg/dL Total Protein 7.2 (6.4-8.2) g/dl Albumin 3.0 L (3.4-5.0) g/dl Globulin 4.2 gm/dL Albumin/Globulin Ratio 0.7 L (1-2) Urine Color (Yellow) Urine Appearance (Clear) Urine pH (5.0-8.0) Ur Specific [place] (1.005-1.030) Urine Protein (Negative) Urine Glucose (UA) (Negative) Urine Ketones (Negative) Urine Occult Blood (Negative) Urine Nitrite (Negative) Urine Bilirubin (Negative) Urine Urobilinogen (0.2-1.0) Ur Leukocyte Esterase (Negative) Urine RBC (0-5) /hpf Urine WBC (0-5) /hpf Ur Epithelial Cells (0-5) /hpf Urine Bacteria (FEW) /hpf Urine Mucus (FEW) /hpf 06/10/19 06/10/19 06/10/19 Range/Units 08:40 08:40 08:54 WBC (3.98-10.04) K/mm3 RBC (3.98-5.22) M/mm3 Hgb (11.2-15.7) gm/dl Hct (34.1-44.9) % MCV (79.4-94.8) fl MCH (25.6-32.2) pg MCHC (32.2-35.5) g/dl RDW Std Deviation (36.4-46.3) fL Plt Count (182-369) K/mm3 MPV (9.4-12.3) fl Neutrophils % (Manual) (40-60) % Band Neutrophils % (0-10) % Lymphocytes % (Manual) (20-40) % Atypical Lymphs % % Monocytes % (Manual) (2-10) % Eosinophils % (Manual) (0.7-5.8) % Basophils % (Manual) (0.1-1.2) Platelet Estimate Plt Morphology Comment Polychromasia RBC Morph Comment PT 11.0 (9.7-12.0) SECONDS INR 1.01 Sodium (136-145) mEq/L Potassium (3.5-5.1) mEq/L Chloride (98-107) mEq/L Carbon Dioxide (21-32) mEq/L Anion Gap (5-15) BUN (7-18) mg/dL Creatinine (0.55-1.02) mg/dL Est Cr Clr Drug Dosing mL/min Estimated GFR (MDRD) (>60) mL/min BUN/Creatinine Ratio (14-18) Glucose (74-106) mg/dL Lactic Acid 1.7 (0.4-2.0) mmol/L Calcium (8.5-10.1) mg/dL Total Bilirubin (0.2-1.0) mg/dL AST (15-37) U/L ALT (14-59) U/L Alkaline Phosphatase (46-116) U/L C-Reactive Protein (<1.0) mg/dL Total Protein (6.4-8.2) g/dl Albumin (3.4-5.0) g/dl Globulin gm/dL Albumin/Globulin Ratio (1-2) Urine Color Yellow (Yellow) Urine Appearance Slt cloudy H (Clear) Urine pH 8.0 (5.0-8.0) Ur Specific [place] 1.015 (1.005-1.030) Urine Protein Negative (Negative) Urine Glucose (UA) Negative (Negative) Urine Ketones Negative (Negative) Urine Occult Blood Trace-intact H (Negative) Urine Nitrite Negative (Negative) Urine Bilirubin Negative (Negative) Urine Urobilinogen 1.0 (0.2-1.0) Ur Leukocyte Esterase 2+ H (Negative) Urine RBC 5-10 H (0-5) /hpf Urine WBC 30-40 H (0-5) /hpf Ur Epithelial Cells 10-20 H (0-5) /hpf Urine Bacteria Many H (FEW) /hpf Urine Mucus Not seen (FEW) /hpf Meds: Medications Generic Name Dose Route Start Last Admin Trade Name Freq PRN Reason Stop Dose Admin Sodium Chloride 1,000 mls @ 999 mls/hr 06/10/19 08:15 06/10/19 09:12 Normal Saline IV 999 mls/hr ONETIME SHAWNA Administration Ceftriaxone Sodium 1 gm/ 100 mls @ 200 mls/hr 06/10/19 13:30 06/10/19 13:45 Sodium Chloride IV 200 mls/hr Q24H SHAWNA Administration Lactated Ringer's 1,000 mls @ 125 mls/hr 06/10/19 14:00 Ringers, Lactated IV ASDIRECTED SHAWNA Levothyroxine Sodium 150 mcg 06/11/19 06:00 Levothyroxine PO ACBREAKFAST SHAWNA Non-Formulary Medication 300 mg 06/10/19 18:00 Alpha Lipoic Acid [Alpha Lipoic Acid] PO QPM SHAWNA Non-Formulary Medication 20 mg 06/10/19 17:00 Baclofen [Baclofen] PO QID SHAWNA Non-Formulary Medication 1 inh 06/11/19 09:00 Fluticasone/Umeclidin/Vilanter PO DAILY SHAWNA Non-Formulary Medication 0.5 mg 06/10/19 21:00 Lorazepam PO BEDTIME SHAWNA Non-Formulary Medication 10 mg 06/10/19 21:00 Melatonin [Melatonin] PO BEDTIME SHAWNA Non-Formulary Medication 7.5 mg 06/10/19 18:00 Mirtazapine [Mirtazapine] PO QPM SHAWNA Non-Formulary Medication 1 tab 06/11/19 09:00 Multivitamins PO DAILY SHAWNA Non-Formulary Medication 440 mg 06/10/19 21:00 Naproxen Sodium PO BEDTIME SHAWNA Non-Formulary Medication 1 drop 06/10/19 15:00 Polyvinyl Alcohol/Povidone/Pf [Refresh Classic Eye Drops] EYEBOTH TID SHAWNA Non-Formulary Medication 150 mg 06/10/19 21:00 Pregabalin PO BID SHAWNA Non-Formulary Medication 175 mg 06/11/19 09:00 Pregabalin PO DAILY SHAWNA Non-Formulary Medication 1 mg 06/11/19 09:00 Varenicline Tartrate [Chantix] PO DAILY SH[facility]NA Ondansetron HCl 4 mg 06/10/19 13:55 Zofran Odt PO Q6H PRN nausea, able to take PO Ondansetron HCl 4 mg 06/10/19 13:55 Zofran IV Q6H PRN Nausea/Vomiting Oxycodone HCl 5 mg 06/10/19 13:59 Oxycodone PO Q8H PRN Pain Sodium Chloride 10 ml 06/10/19 08:14 06/10/19 09:12 Saline Flush FLUSH 10 ml ASDIRECTED PRN Administration Keep Vein Open Discontinued Medications Generic Name Dose Route Start Last Admin Trade Name Freq PRN Reason Stop Dose Admin Vancomycin HCl 1.75 gm/ Sodium 500 mls @ 250 mls/hr 06/10/19 08:48 06/10/19 09:32 Chloride IV 06/10/19 08:49 250 mls/hr ONETIME ONE Administration Lactated Ringer's 1,000 mls @ 999 mls/hr 06/10/19 09:35 06/10/19 10:07 Ringers, Lactated IV 06/10/19 10:35 999 mls/hr .BOLUS ONE Administration - Re-Assessments/Exams Free Text/Narrative Re-Assessment/Exam: 06/10/19 13:36. White blood count did come back elevated at around 17,000 with a left shift, C- reactive protein also elevated at around 16. Patient was initially treated with vancomycin 1.75 g IV. This was followed by Rocephin 1 g IV. Cultures 2 were obtained upon patient arrival. Lactic acid came back normal at 1.7. He was given one 1 L normal saline initially followed by a liter of lactated Ringer's. Patient has been admitted for further evaluation treatment. 06/10/19 14:05. BP 105/56. pulse 104 improved from 105 on arrival to ED. good radial pulses and good cap refill bilateral upper extremities. Departure - Departure Time of Disposition: 13:20 Disposition: Refer to Observation Condition: Fair Clinical Impression: Cellulitis Qualifiers: Site of cellulitis: extremity Site of cellulitis of extremity: lower extremity Laterality: right Qualified Code(s): L03.115 - Cellulitis of right lower limb UTI (urinary tract infection) Qualifiers: Urinary tract infection type: site unspecified Hematuria presence: without hematuria Qualified Code(s): N39.0 - Urinary tract infection, site not specified - Discharge Information ED Communication - Discussed Case With (1) Discussed Case With (1): Admitting Provider (Dr Ann, decision to admit at about 13:10) - My Orders Last 24 Hours: My Active Orders 06/10/19 08:13 Oxygen Therapy [RC] ASDIRECTED Peripheral IV Insertion Adult [OM.PC] Stat 06/10/19 08:14 Peripheral IV Care [RC] . DIRECTED Sodium Chloride 0.9% [Saline Flush] 10 ml FLUSH ASDIRECTED PRN 06/10/19 08:15 Sodium Chloride 0.9% [Normal Saline] 1,000 ml IV ONETIME 06/10/19 08:40 CULTURE URINE [RM] Stat 06/10/19 08:54 CULTURE BLOOD [BC] Stat 06/10/19 13:24 Chest 1V Frontal [CR] Stat 06/10/19 13:30 cefTRIAXone [Rocephin] 1 gm Sodium Chloride 0.9% [Normal Saline] 100 ml IV Q24H - Assessment/Plan Last 24 Hours: My Active Orders 06/10/19 08:13 Oxygen Therapy [RC] ASDIRECTED Peripheral IV Insertion Adult [OM.PC] Stat 06/10/19 08:14 Peripheral IV Care [RC] . DIRECTED Sodium Chloride 0.9% [Saline Flush] 10 ml FLUSH ASDIRECTED PRN 06/10/19 08:15 Sodium Chloride 0.9% [Normal Saline] 1,000 ml IV ONETIME 06/10/19 08:40 CULTURE URINE [RM] Stat 06/10/19 08:54 CULTURE BLOOD [BC] Stat 06/10/19 13:24 Chest 1V Frontal [CR] Stat 06/10/19 13:30 cefTRIAXone [Rocephin] 1 gm Sodium Chloride 0.9% [Normal Saline] 100 ml IV Q24H
[2019-06-10] MEDS ORDERED: Lactated Ringers 1,000 ML IV ONE (09:35)
--- NOTE | 2019-06-10 13:33 | PCM.HP.2 ---
H&P History of Present Illness - General Date of Service: 06/10/19 - History of Present Illness Initial Comments - Free Text/Narative: This is a 54 year old female who was brought to the ED from [facility] for worswening fever and rash on r leg. As per patient symptoms started having fevers and uncontrollable shakes, measured temp 103. First noticed the rash last night, no pain. Tylenol was given which improved the fever. Denies any nausea, vomiting, abdominal pain, dizziness, headaches, shortness of breath, coughing, nasal congestion Sore throat since before Tuesday, no changes since then. [place] [facility] notes: 06/09/2019 at 2:37: While giving medications he was observably resident was visibly an excessively shaking. When asked if she was okay residence stated that she has been cold and shaking all day. At 19:21 resident requested when necessary pain medication no observed S/S shaking has been noted. Resident's temperature was 101.2, she was covered in one warm blanket, and she denied any other complaints. Lung sounds were diminished and clear throughout. Urine was clear yellow with strong ammonia order. I will put his current over 1400. When necessary Tylenol was given and effective. Resident is currently afebrile at 98.4 At 22:20 patient was visibly shaking, temperature 100.3. Urine yellow and cloudy. Catheter bag changed his suprapubic catheter flushed per ordered with 120 mL's of normal saline. Clear return in patent catheter Urine culture ordered by 06/10/19 4:00 temp 102.2, RLE hot to touch and red, no open areas, given PRN Tylenol Tmax recorded 102.2 Back Pain Score (Numeric/FACES): 7 - Related Data Allergies/Adverse Reactions: Allergies Allergy/AdvReac Type Severity Reaction Status Date / Time cefixime [From Suprax] Allergy Mild Itching Verified 06/10/19 15:19 Home Medications: Home Meds Acetaminophen [Tylenol] 650 mg PO Q4H PRN 11/17/18 [History] Alpha Lipoic Acid 300 mg PO QPM 11/17/18 [History] Baclofen 20 mg PO QID 11/17/18 [History] Bisacodyl 10 mg RC DAILY PRN 11/17/18 [History] LORazepam [Ativan] 0.5 mg PO BEDTIME 11/17/18 [History] Levothyroxine 150 mcg PO ACBREAKFAST 11/17/18 [History] Loperamide HCl [Imodium A-D] 2 mg PO TID PRN 11/17/18 [History] Magnesium Citrate 150 ml PO BID PRN 11/17/18 [History] Multivitamin [Daily Multiple Vitamin] 1 tab PO DAILY 11/17/18 [History] Naproxen Sodium [Aleve] 440 mg PO BEDTIME 11/17/18 [History] Ondansetron [Zofran ODT] 4 mg PO TID PRN 11/17/18 [History] SUMAtriptan Succinate [Imitrex] 100 mg PO BID PRN 11/17/18 [History] Trolamine Salicylate/Aloe Vera [Aspercreme 10% Cream] 1 applic TRDERM QID PRN [History] Albuterol Sulfate 1 vial INH BID PRN 01/18/19 [History] Mag Hydrox/Al Hydrox/Simeth [[place]] 30 ml PO Q4H PRN 01/18/19 [History] Melatonin 10 mg PO BEDTIME 01/18/19 [History] Na Phos,M-B/Na Phos,DI-B [Fleet Enema] 1 applic RECTAL ASDIRECTED PRN 01/18/19 [ History] Naloxone HCl [Narcan] 4 mg DEMETRI ASDIRECTED 01/18/19 [History] Polyethylene Glycol 3350 [MiraLAX] 17 gm PO DAILY PRN 01/18/19 [History] Pregabalin [Lyrica] 175 mg PO DAILY 01/18/19 [History] Albuterol/Ipratropium [DuoNeb 3.0-0.5 MG/3 ML] 3 ml NEB Q6H PRN #120 neb [Rx] oxyCODONE 5 mg PO Q8H PRN #30 tablet 01/22/19 [Rx] Albuterol Sulfate [Albuterol Sulfate Hfa] 8.5 gm IH Q6HR PRN 03/25/19 [History] Sodium Chloride/Aloe Vera [[place] Saline Nasal Gel [place]] 1 spray DEMETRI DAILY PRN [History] Acetaminophen [Tylenol Extra Strength] 500 mg PO Q6H PRN 06/10/19 [History] Ibuprofen 600 mg PO Q6H PRN 06/10/19 [History] Menthol [Biofreeze] 1 applic TOP ASDIRECTED PRN 06/10/19 [History] Mirtazapine 7.5 mg PO QPM 06/10/19 [History] Oxymetazoline [Afrin Original 0.05% Nasal [place]] 1 spray INH BID PRN 06/10/19 [ History] Polyvinyl Alcohol/Povidone/Pf [Refresh Classic Eye Drops] 1 drop EYEBOTH TID 10/24 [History] Pregabalin [Lyrica] 150 mg PO BID 06/10/19 [History] Umeclidinium [place] [Incruse Ellipta*] 1 inhalation INH DAILY 06/10/19 [History ] Varenicline Tartrate [Chantix] 1 mg PO DAILY 06/10/19 [History] Past Medical History HEENT History: Reports: None, Other (See Below) Other HEENT History: nasal congestion Cardiovascular History: Reports: Hypertension Respiratory History: Reports: Intubation, Previous Other Respiratory History: chronic respiratory failure with hypoxia Gastrointestinal History: Reports: Chronic Constipation, Other (See Below) Other Gastrointestinal History: nausea Genitourinary History: Reports: Neurogenic Bladder, UTI, Recurrent, Other (See Below) Other Genitourinary History: suprapubic catheter, acute kidney injury, chronic UTI. 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 Most recent back surgery was in March of 2015. postlaminectomy syndrome; cramps; spasms'. 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 radiculopathy; restless leg syndrome Psychiatric History: Reports: Anxiety, Depression, Other (See Below) Other Psychiatric History: opioid dependence; insomnia Endocrine/Metabolic History: Reports: Hypothyroidism, Obesity/BMI 30+ Hematologic History: Reports: None Immunologic History: Reports: None Oncologic (Cancer) History: Reports: None Dermatologic History: Reports: Other (See Below) Other Dermatologic History: pressure ulcer to buttocks - Infectious Disease History Infectious Disease History: Reports: Chicken Pox, Measles, MRSA Other Infectious Disease History: hx mrsa in urine - Past Surgical History Head Surgeries/Procedures: Reports: Other (See Below) HEENT Surgical History: Reports: Oral Surgery, Tonsillectomy Other HEENT Surgeries/Procedures: recurrent oral aphthae Cardiovascular Surgical History: Reports: None Respiratory Surgical History: Reports: None GI Surgical History: Reports: None Female Surgical History: Reports: Hysterectomy, Suprapubic Catheter Placement Endocrine Surgical History: Reports: Thyroidectomy Neurological Surgical History: Reports: Lumbar Spine Oncologic Surgical History: Reports: None Social & Family History - Family History Family Medical History: Noncontributory - Tobacco Use Smoking Status *Q: Current Every Day Smoker Years of Tobacco use: 30 Packs/Tins Daily: 0.5 - Caffeine Use Caffeine Use: Reports: Coffee - Recreational Drug Use Recreational Drug Use: No - Living Situation & Occupation Living situation: Reports: , with Significant Other (Boyfriend) Occupation: Disabled H&P Review of Systems - Review of Systems: Review Of Systems: See Below General: Reports: Fever, Chills, Malaise, Diaphoresis. Denies: Weakness, Fatigue, Night Sweats, Decreased Appetite HEENT: Reports: Sore Throat. Denies: Dysphasia, Headaches, Hearing Changes, Rhinitis, Post Nasal Drip, Sinus Congestion Pulmonary: Denies: Shortness of Breath, Wheezing, Cough, Sputum, Hemoptysis Cardiovascular: Denies: Chest Pain, Palpitations, Dyspnea on Exertion, Orthopnea , Edema, Lightheadedness, Syncope Gastrointestinal: Denies: Constipation, Diarrhea, Nausea, Vomiting Genitourinary: Reports: Other (suprapubic catheter) Musculoskeletal: Reports: Muscle Pain Skin: Reports: Rash, Erythema Neurological: Reports: Paresthesia. Denies: Confusion, Dizziness, Headache, Numbness Exam - Exam Exam: See Below - Vital Signs Vital Signs: Last Vital Signs Temp 38.8 C H 06/10/19 07:48 Pulse 116 H 06/10/19 07:48 Resp 17 06/10/19 07:48 BP 101/52 L 06/10/19 07:48 Pulse Ox 80 L 06/10/19 07:48 Weight: 104.326 kg - Exam Quality Assessment: Supplemental Oxygen General: Alert, Oriented, Cooperative HEENT: Conjunctiva Clear, EACs Clear, EOMI, Hearing Intact, Mucosa Moist & [place] , Nares Patent, Pupils Equal, Pupils Reactive Neck: Supple. No: Lymphadenopathy Lungs: Clear to Auscultation, Decreased Breath Sounds. No: Crackles, Rales, Rhonchi, Wheezing Cardiovascular: Regular Rate, Regular Rhythm. No: Systolic Murmur, Diastolic Murmur, Rubs, Gallop/S3, Gallop/S4 GI/Abdominal Exam: Normal Bowel Sounds, Soft, Non-Tender, No Distention Extremities: Normal Capillary Refill, Increased Warmth, Redness. No: Pedal Edema Skin: Warm, Rash Psychiatric: Alert - Patient Data Lab Results Last 24 hrs: Laboratory Results - last 24 hr 06/10/19 06/10/19 06/10/19 Range/Units 08:35 08:35 08:35 WBC 17.15 H (3.98-10.04) K/mm3 RBC 4.89 (3.98-5.22) M/mm3 Hgb 14.2 D (11.2-15.7) gm/dl Hct 44.8 (34.1-44.9) % MCV 91.6 (79.4-94.8) fl MCH 29.0 (25.6-32.2) pg MCHC 31.7 L (32.2-35.5) g/dl RDW Std Deviation 52.1 H (36.4-46.3) fL Plt Count 194 D (182-369) K/mm3 MPV 10.8 (9.4-12.3) fl Neutrophils % (Manual) 83 H (40-60) % Band Neutrophils % 10 (0-10) % Lymphocytes % (Manual) 4 L (20-40) % Atypical Lymphs % 0 % Monocytes % (Manual) 3 (2-10) % Eosinophils % (Manual) 0 L (0.7-5.8) % Basophils % (Manual) 0 L (0.1-1.2) Platelet Estimate Adequate Plt Morphology Comment Normal Polychromasia 1+ slight RBC Morph Comment Not Reportable PT (9.7-12.0) SECONDS INR Sodium 140 (136-145) mEq/L Potassium 4.5 (3.5-5.1) mEq/L Chloride 102 (98-107) mEq/L Carbon Dioxide 30 (21-32) mEq/L Anion Gap 12.5 (5-15) BUN 14 (7-18) mg/dL Creatinine 1.1 H (0.55-1.02) mg/dL Est Cr Clr Drug Dosing 59.68 mL/min Estimated GFR (MDRD) 51 (>60) mL/min BUN/Creatinine Ratio 12.7 L (14-18) Glucose 151 H (74-106) mg/dL Lactic Acid (0.4-2.0) mmol/L Calcium 9.3 (8.5-10.1) mg/dL Total Bilirubin 0.9 (0.2-1.0) mg/dL AST 21 (15-37) U/L ALT 34 (14-59) U/L Alkaline Phosphatase 135 H (46-116) U/L C-Reactive Protein 18.7 H* (<1.0) mg/dL Total Protein 7.2 (6.4-8.2) g/dl Albumin 3.0 L (3.4-5.0) g/dl Globulin 4.2 gm/dL Albumin/Globulin Ratio 0.7 L (1-2) Urine Color (Yellow) Urine Appearance (Clear) Urine pH (5.0-8.0) Ur Specific [place] (1.005-1.030) Urine Protein (Negative) Urine Glucose (UA) (Negative) Urine Ketones (Negative) Urine Occult Blood (Negative) Urine Nitrite (Negative) Urine Bilirubin (Negative) Urine Urobilinogen (0.2-1.0) Ur Leukocyte Esterase (Negative) Urine RBC (0-5) /hpf Urine WBC (0-5) /hpf Ur Epithelial Cells (0-5) /hpf Urine Bacteria (FEW) /hpf Urine Mucus (FEW) /hpf 06/10/19 06/10/19 06/10/19 Range/Units 08:40 08:40 08:54 WBC (3.98-10.04) K/mm3 RBC (3.98-5.22) M/mm3 Hgb (11.2-15.7) gm/dl Hct (34.1-44.9) % MCV (79.4-94.8) fl MCH (25.6-32.2) pg MCHC (32.2-35.5) g/dl RDW Std Deviation (36.4-46.3) fL Plt Count (182-369) K/mm3 MPV (9.4-12.3) fl Neutrophils % (Manual) (40-60) % Band Neutrophils % (0-10) % Lymphocytes % (Manual) (20-40) % Atypical Lymphs % % Monocytes % (Manual) (2-10) % Eosinophils % (Manual) (0.7-5.8) % Basophils % (Manual) (0.1-1.2) Platelet Estimate Plt Morphology Comment Polychromasia RBC Morph Comment PT 11.0 (9.7-12.0) SECONDS INR 1.01 Sodium (136-145) mEq/L Potassium (3.5-5.1) mEq/L Chloride (98-107) mEq/L Carbon Dioxide (21-32) mEq/L Anion Gap (5-15) BUN (7-18) mg/dL Creatinine (0.55-1.02) mg/dL Est Cr Clr Drug Dosing mL/min Estimated GFR (MDRD) (>60) mL/min BUN/Creatinine Ratio (14-18) Glucose (74-106) mg/dL Lactic Acid 1.7 (0.4-2.0) mmol/L Calcium (8.5-10.1) mg/dL Total Bilirubin (0.2-1.0) mg/dL AST (15-37) U/L ALT (14-59) U/L Alkaline Phosphatase (46-116) U/L C-Reactive Protein (<1.0) mg/dL Total Protein (6.4-8.2) g/dl Albumin (3.4-5.0) g/dl Globulin gm/dL Albumin/Globulin Ratio (1-2) Urine Color Yellow (Yellow) Urine Appearance Slt cloudy H (Clear) Urine pH 8.0 (5.0-8.0) Ur Specific [place] 1.015 (1.005-1.030) Urine Protein Negative (Negative) Urine Glucose (UA) Negative (Negative) Urine Ketones Negative (Negative) Urine Occult Blood Trace-intact H (Negative) Urine Nitrite Negative (Negative) Urine Bilirubin Negative (Negative) Urine Urobilinogen 1.0 (0.2-1.0) Ur Leukocyte Esterase 2+ H (Negative) Urine RBC 5-10 H (0-5) /hpf Urine WBC 30-40 H (0-5) /hpf Ur Epithelial Cells 10-20 H (0-5) /hpf Urine Bacteria Many H (FEW) /hpf Urine Mucus Not seen (FEW) /hpf Result Diagrams: 06/10/19 08:35 06/10/19 08:35 - Problem List (1) Paraplegia SNOMED Code(s): 16486617 ICD Code: G82.20 - PARAPLEGIA, UNSPECIFIED Status: Acute Current Visit: Yes (2) COPD (chronic obstructive pulmonary disease) SNOMED Code(s): 89197902 ICD Code: J44.9 - CHRONIC OBSTRUCTIVE PULMONARY DISEASE, UNSPECIFIED Status : Acute Current Visit: Yes (3) Chronically on benzodiazepine therapy SNOMED Code(s): 508093114 ICD Code: Z79.899 - OTHER INSTALLMENT ACCOUNT CHECKER (CURRENT) DRUG THERAPY Status: Acute Current Visit: Yes (4) Neutrophilic leukocytosis SNOMED Code(s): 015917054, 394530116 ICD Code: D72.9 - DISORDER OF WHITE BLOOD CELLS, UNSPECIFIED Status: Acute Current Visit: Yes (5) Recurrent UTI SNOMED Code(s): 714285044 ICD Code: N39.0 - URINARY TRACT INFECTION, SITE NOT SPECIFIED Status: Acute Priority: High Current Visit: No (6) Suprapubic catheter SNOMED Code(s): 532634669, 143045143 ICD Code: Z93.59 - OTHER CYSTOSTOMY STATUS Status: Acute Priority: High Current Visit: No (7) UTI, Urinary tract infectious disease SNOMED Code(s): 37707995 ICD Code: N39.0 - URINARY TRACT INFECTION, SITE NOT SPECIFIED Status: Acute Current Visit: No (8) Vitamin D deficiency SNOMED Code(s): 52353632 ICD Code: E55.9 - VITAMIN D DEFICIENCY, UNSPECIFIED Status: Acute Current Visit: Yes (9) Tubulointerstitial nephritis SNOMED Code(s): 090161524 ICD Code: N12 - TUBULO-INTERSTITIAL NEPHRITIS, NOT SPCF ACUTE OR CHRONIC Status: Acute Current Visit: Yes (10) Recurrent oral aphthae SNOMED Code(s): 490284923 ICD Code: K12.0 - RECURRENT ORAL APHTHAE Status: Acute Current Visit: Yes (11) Post laminectomy syndrome SNOMED Code(s): 87406829 ICD Code: M96.1 - POSTLAMINECTOMY SYNDROME, NOT ELSEWHERE CLASSIFIED Status : Acute Current Visit: Yes (12) Insomnia SNOMED Code(s): 458096140 ICD Code: G47.00 - INSOMNIA, UNSPECIFIED Status: Acute Current Visit: Yes (13) Intractable muscle spasm SNOMED Code(s): 81332344, 68034631 ICD Code: M62.40 - CONTRACTURE OF MUSCLE, UNSPECIFIED SITE Status: Acute Current Visit: Yes (14) Current every day smoker SNOMED Code(s): 891643684, 727777876 ICD Code: F17.200 - NICOTINE DEPENDENCE, UNSPECIFIED, UNCOMPLICATED Status : Acute Current Visit: Yes (15) Hypothyroid SNOMED Code(s): 81968694 ICD Code: E03.9 - HYPOTHYROIDISM, UNSPECIFIED Status: Acute Current Visit : No (16) JAVAD (generalized anxiety disorder) SNOMED Code(s): 23021269 ICD Code: F41.1 - GENERALIZED ANXIETY DISORDER Status: Acute Current Visit: Yes Problem List Initiated/Reviewed/Updated: Yes Assessment/Plan Comment:: Non-purulent cellulitis of RLE No signs of fluctuation Systemic signs of toxicity including: fever, chills and tachycardia No need to cover MRSA PLAN - Continue ceftriaxone - Monitor skin for progression of disease - Pain control with home medications - Monitor temperature and obtain blood cultures if febrile UTI, Urinary tract infectious disease Suprapubic catheter + Recurrent UTIs Hematuria + pyuria Change suprapubic catheter #2230 mL every month on the Irrigate suprapubic catheter twice a day with 120 mL of normal saline PLAN - Ceftriaxone - Monitor for fever COPD (chronic obstructive pulmonary disease) Current every day smoker Chronic hypoxemic respiratory failure No acute issues Oxygen via nasal cannula 4 L to keep sats above 90% PLAN - Continue home Incruse Ellipta 1 inhalation every day - As needed DuoNebs Acute Kidney injury Likely 2/2 volume depletion PLAN - Continue IV fluids with LR - Renally dosed medications - Monitor urine output - Avoid nephrotoxic medications - Keep balance as neutral as possible Hypothyroidism No acute issues PLAN - Continue home Levothyroxine 50mcg QD Paraplegia Intractable muscle spasm Post laminectomy syndrome Radiculopathy Home recommendations - Skilled PT services to3 per week for up to 8 weeks persistent left shoulder pain reduction and return function, interventions to include exercise, US, stim and manual therapy - Cleanse right and left sides of groin with warm soapy water, pat dry and apply zinc barrier cream - Moisture left heel daily PLAN - Continue home management with Lyrica 150 mg twice a day and 175 mg 1400; Aleve 220 mg at bedtime; Baclofen 20 mg 4 times a day Insomnia No acute issues Home management with melatonin PLAN - Continue Melatonin 10 mg every night Generalized anxiety disorder on chronic benzodiazepine therapy No recent panic attacks Home management with Mirtazapine and Ativan PLAN - Continue Mirtazapine 7.5 mg at bedtime and Ativan 0.5 mg at bedtime PROPHYLAXIS: DVT- Lovenox GI- Not indicated CODE STATUS: FULL CODE NEXT OF KIN: Boyfriend: Robbie Moore, #[phone] DISPOSITION: Will be admitted under observation for IV antibiotics.
[2019-06-10] MEDS: cefTRIAXone 1 GM in Sodium Chloride 0.9% 100 ML IV SCH (13:45)
[2019-06-10] MEDS ORDERED: Ondansetron 4 MG Tab.DIS PO PRN (13:55)
[2019-06-10] MEDS ORDERED: Ondansetron 4 MG/2 ML SDV IV PRN (13:55)
[2019-06-10] MEDS ORDERED: ALPHA LIPOIC ACID 300 MG PO SCH (18:00)
[2019-06-10] MEDS: Lactated Ringers 1,000 ML IV SCH (18:23)
[2019-06-10] MEDS: Mirtazapine 15 MG Tab PO SCH (18:24)
[2019-06-10] MEDS: Baclofen 10 MG Tab PO SCH ×2 (18:24→20:35)
[2019-06-10] MEDS: Carboxymethylcellulose Sodium 1% Ophth Gel 15 ML Bottle EYEBOTH SCH ×2 (18:26→20:36)
[2019-06-10] MEDS: oxyCODONE 5 MG Tab PO PRN (20:34)
[2019-06-10] MEDS: LORazepam 0.5 MG Tab PO SCH (20:35)
[2019-06-10] MEDS: Pregabalin 75 MG Cap PO SCH (20:36)
[2019-06-11] MEDS: oxyCODONE 5 MG Tab PO PRN ×2 (05:15→15:23)
[2019-06-11] MEDS: Lactated Ringers 1,000 ML IV SCH (05:16)
[2019-06-11] MEDS ORDERED: Levothyroxine 150 MCG Tab PO SCH (06:00)
[2019-06-11] MEDS: Pregabalin 75 MG Cap PO SCH ×3 (08:01→20:43)
[2019-06-11] MEDS: Multivitamins,Therapeutic Tab PO SCH (08:01)
[2019-06-11] MEDS: Baclofen 10 MG Tab PO SCH ×4 (08:01→20:43)
[2019-06-11] MEDS: Levothyroxine 75 MCG Tab PO SCH (08:01)
--- NOTE | 2019-06-11 08:01 | CR ---
Chest: Portable view of the chest was obtained. Comparison: Prior chest x-ray of 03/27/19. Heart size and mediastinum appear within normal limits for portable technique. Lungs are clear with no acute parenchymal change. Bony structures are grossly intact. Impression: 1. Nothing acute is seen on portable chest x-ray. Diagnostic code #1
[2019-06-11] MEDS: Carboxymethylcellulose Sodium 1% Ophth Gel 15 ML Bottle EYEBOTH SCH ×3 (08:02→20:45)
[2019-06-11] MEDS: VARENICLINE TARTRATE 1 MG PO SCH (08:07)
[2019-06-11] MEDS ORDERED: UMECLIDIN PO SCH (09:00)
[2019-06-11] MEDS ORDERED: VILANTER PO SCH (09:00)
[2019-06-11] MEDS ORDERED: PREGABALIN PO SCH (09:00)
[2019-06-11] MEDS ORDERED: FLUTICASONE PO SCH (09:00)
[2019-06-11] MEDS ORDERED: Sodium Chloride 0.9% 10 ML Syringe FLUSH PRN (11:04)
[2019-06-11] MEDS: cefTRIAXone 1 GM in Sodium Chloride 0.9% 100 ML IV SCH (12:54)
[2019-06-11] MEDS: Pregabalin 25 MG Cap PO SCH (13:02)
[2019-06-11] MEDS: Enoxaparin 40 MG/0.4 ML Syringe SUBCUT SCH (16:29)
[2019-06-11] MEDS: Mirtazapine 15 MG Tab PO SCH ×2 (17:42→20:43)
--- NOTE | 2019-06-11 17:56 | PCM.PN ---
- General Info Date of Service: 06/11/19 Subjective Update: Feeling ok HAd trouble sleeping, this is a chronic problem Tolerating diet No BM yet but does not want any bowel regimen - Patient Data Vitals - Most Recent: Last Vital Signs Temp 37.1 C 06/11/19 12:58 Pulse 93 06/11/19 12:58 Resp 16 06/11/19 12:58 BP 96/52 L 06/11/19 12:59 Pulse Ox 93 L 06/11/19 12:58 Weight - Most Recent: 103.6 kg - Exam General: Alert, Oriented, Cooperative, No Acute Distress HEENT: Pupils Equal, Pupils Reactive Neck: Supple, Trachea Midline Lungs: Clear to Auscultation, Normal Respiratory Effort. No: Crackles, Rales, Rhonchi, Wheezing Cardiovascular: Regular Rate, Regular Rhythm. No: Murmurs, Gallops, Rubs GI/Abdominal Exam: Normal Bowel Sounds, Soft Extremities: Normal Inspection Skin: Warm, Rash Psy/Mental Status: Alert, Depressed - Problem List & Annotations (1) Paraplegia SNOMED Code(s): 85705552 Code(s): G82.20 - PARAPLEGIA, UNSPECIFIED Status: Acute Current Visit: Yes (2) COPD (chronic obstructive pulmonary disease) SNOMED Code(s): 22324878 Code(s): J44.9 - CHRONIC OBSTRUCTIVE PULMONARY DISEASE, UNSPECIFIED Status : Acute Current Visit: Yes (3) Chronically on benzodiazepine therapy SNOMED Code(s): 819052910 Code(s): Z79.899 - OTHER COPYWRITER (CURRENT) DRUG THERAPY Status: Acute Current Visit: Yes (4) Neutrophilic leukocytosis SNOMED Code(s): 237918403, 837162022 Code(s): D72.9 - DISORDER OF WHITE BLOOD CELLS, UNSPECIFIED Status: Acute Current Visit: Yes (5) Recurrent UTI SNOMED Code(s): 011617680 Code(s): N39.0 - URINARY TRACT INFECTION, SITE NOT SPECIFIED Status: Acute Priority: High Current Visit: No (6) Suprapubic catheter SNOMED Code(s): 745772043, 618201282 Code(s): Z93.59 - OTHER CYSTOSTOMY STATUS Status: Acute Priority: High Current Visit: No (7) UTI, Urinary tract infectious disease SNOMED Code(s): 25418119 Code(s): N39.0 - URINARY TRACT INFECTION, SITE NOT SPECIFIED Status: Acute Current Visit: No (8) Vitamin D deficiency SNOMED Code(s): 60802877 Code(s): E55.9 - VITAMIN D DEFICIENCY, UNSPECIFIED Status: Acute Current Visit: Yes (9) Tubulointerstitial nephritis SNOMED Code(s): 781204890 Code(s): N12 - TUBULO-INTERSTITIAL NEPHRITIS, NOT SPCF ACUTE OR CHRONIC Status: Acute Current Visit: Yes (10) Recurrent oral aphthae SNOMED Code(s): 881328385 Code(s): K12.0 - RECURRENT ORAL APHTHAE Status: Acute Current Visit: Yes (11) Post laminectomy syndrome SNOMED Code(s): 12419480 Code(s): M96.1 - POSTLAMINECTOMY SYNDROME, NOT ELSEWHERE CLASSIFIED Status : Acute Current Visit: Yes (12) Insomnia SNOMED Code(s): 403627030 Code(s): G47.00 - INSOMNIA, UNSPECIFIED Status: Acute Current Visit: Yes (13) Intractable muscle spasm SNOMED Code(s): 72455193, 43521837 Code(s): M62.40 - CONTRACTURE OF MUSCLE, UNSPECIFIED SITE Status: Acute Current Visit: Yes (14) Current every day smoker SNOMED Code(s): 539243623, 036840221 Code(s): F17.200 - NICOTINE DEPENDENCE, UNSPECIFIED, UNCOMPLICATED Status: Acute Current Visit: Yes (15) Hypothyroid SNOMED Code(s): 75058705 Code(s): E03.9 - HYPOTHYROIDISM, UNSPECIFIED Status: Acute Current Visit : No (16) JAVAD (generalized anxiety disorder) SNOMED Code(s): 28025507 Code(s): F41.1 - GENERALIZED ANXIETY DISORDER Status: Acute Current Visit : Yes - Problem List Review Problem List Initiated/Reviewed/Updated: Yes - Plan Plan:: Non-purulent cellulitis of RLE No signs of fluctuation Systemic signs of toxicity including: fever, chills and tachycardia No need to cover MRSA Mild improvement PLAN - Continue ceftriaxone - Monitor skin for progression of disease - Pain control with home medications - Monitor temperature and obtain blood cultures if febrile UTI, Urinary tract infectious disease Suprapubic catheter + Recurrent UTIs Hematuria + pyuria Change suprapubic catheter #2230 mL every month on the Irrigate suprapubic catheter twice a day with 120 mL of normal saline PLAN - Ceftriaxone - Monitor for fever COPD (chronic obstructive pulmonary disease) Current every day smoker Chronic hypoxemic respiratory failure No acute issues Oxygen via nasal cannula 4 L to keep sats above 90% PLAN - Continue home Incruse Ellipta 1 inhalation every day - As needed DuoNebs Acute Kidney injury Likely 2/2 volume depletion PLAN - Continue IV fluids with LR - Renally dosed medications - Monitor urine output - Avoid nephrotoxic medications - Keep balance as neutral as possible Hypothyroidism No acute issues PLAN - Continue home Levothyroxine 50mcg QD Paraplegia Intractable muscle spasm Post laminectomy syndrome Radiculopathy Home recommendations - Skilled PT services to3 per week for up to 8 weeks persistent left shoulder pain reduction and return function, interventions to include exercise, US, stim and manual therapy - Cleanse right and left sides of groin with warm soapy water, pat dry and apply zinc barrier cream - Moisture left heel daily PLAN - Continue home management with Lyrica 150 mg twice a day and 175 mg 1400; Aleve 220 mg at bedtime; Baclofen 20 mg 4 times a day Insomnia No acute issues Home management with melatonin PLAN - Continue Melatonin 10 mg every night Generalized anxiety disorder on chronic benzodiazepine therapy No recent panic attacks Home management with Mirtazapine and Ativan PLAN - Continue Mirtazapine 7.5 mg at bedtime and Lorazepam 0.5 mg at bedtime PROPHYLAXIS: DVT- Lovenox GI- Not indicated CODE STATUS: FULL CODE NEXT OF KIN: Boyfriend: Robbie Moore, #[phone] DISPOSITION: If patient continues to improve, and no fever spikes will transition to PO antibiotics in the AM and probable discharge.
[2019-06-11] MEDS: Melatonin 3 MG Tab PO SCH (20:44)
[2019-06-11] MEDS: LORazepam 0.5 MG Tab PO SCH (20:44)
[2019-06-11] MEDS ORDERED: NAPROXEN SODIUM 440 MG PO SCH (21:00)
[2019-06-11] MEDS: Naproxen 500 MG Tab PO SCH (22:58)
[2019-06-12] MEDS: oxyCODONE 5 MG Tab PO PRN ×3 (01:13→16:56)
[2019-06-12] MEDS: Levothyroxine 75 MCG Tab PO SCH (06:01)
[2019-06-12] MEDS: Pregabalin 75 MG Cap PO SCH ×3 (09:06→20:48)
[2019-06-12] MEDS: Baclofen 10 MG Tab PO SCH ×4 (09:07→20:49)
[2019-06-12] MEDS: Enoxaparin 40 MG/0.4 ML Syringe SUBCUT SCH (09:07)
[2019-06-12] MEDS: Multivitamins,Therapeutic Tab PO SCH (09:07)
[2019-06-12] MEDS: VARENICLINE TARTRATE 1 MG PO SCH (10:43)
[2019-06-12] MEDS: Carboxymethylcellulose Sodium 1% Ophth Gel 15 ML Bottle EYEBOTH SCH ×3 (10:43→21:44)
--- NOTE | 2019-06-12 11:00 | PCM.PN ---
<Sami Ybarra - Last Filed: 06/12/19 15:54> - General Info Date of Service: 06/12/19 Functional Status: Reports: Pain Controlled, Tolerating Diet, Urinating. Denies : Ambulating (Paraplegic ), New Symptoms - Review of Systems General: Reports: No Symptoms. Denies: Fever, Weakness, Fatigue, Malaise, Chills HEENT: Reports: No Symptoms. Denies: Headaches, Sore Throat Pulmonary: Reports: No Symptoms. Denies: Shortness of Breath, Cough, Sputum, Wheezing Cardiovascular: Reports: No Symptoms. Denies: Chest Pain, Palpitations Gastrointestinal: Reports: No Symptoms. Denies: Abdominal Pain, Constipation, Diarrhea, Nausea, Vomiting Genitourinary: Reports: No Symptoms. Denies: Pain Musculoskeletal: Reports: No Symptoms Skin: Reports: No Symptoms. Denies: Cyanosis Neurological: Reports: No Symptoms. Denies: Confusion Psychiatric: Reports: No Symptoms - Patient Data Vitals - Most Recent: Last Vital Signs Temp 98.1 F 06/12/19 08:48 Pulse 79 06/12/19 08:48 Resp 18 06/12/19 08:48 BP 116/46 L 06/12/19 08:48 Pulse Ox 91 L 06/12/19 08:48 Weight - Most Recent: 104.417 kg I&O - Last 24 Hours: Intake & Output 06/11/19 06/12/19 06/12/19 22:59 06:59 14:59 Intake Total 2510 1000 180 Output Total 2350 2400 Balance 160 -1400 180 Lab Results Last 24 Hours: Laboratory Results - last 24 hr 06/12/19 06/12/19 Range/Units 05:15 05:15 WBC 7.39 (3.98-10.04) K/mm3 RBC 4.30 (3.98-5.22) M/mm3 Hgb 12.4 (11.2-15.7) gm/dl Hct 40.8 (34.1-44.9) % MCV 94.9 H (79.4-94.8) fl MCH 28.8 (25.6-32.2) pg MCHC 30.4 L (32.2-35.5) g/dl RDW Std Deviation 53.5 H (36.4-46.3) fL Plt Count 186 (182-369) K/mm3 MPV 10.8 (9.4-12.3) fl Neut % (Auto) 62.0 (34.0-71.1) % Lymph % (Auto) 22.9 (19.3-51.7) % [place] % (Auto) 14.2 H (4.7-12.5) % Eos % (Auto) 0.1 L (0.7-5.8) Baso % (Auto) 0.3 (0.1-1.2) % Neut # (Auto) 4.58 (1.56-6.13) K/mm3 Lymph # (Auto) 1.69 (1.18-3.74) K/mm3 [place] # (Auto) 1.05 H (0.24-0.36) K/mm3 Eos # (Auto) 0.01 L (0.04-0.36) K/mm3 Baso # (Auto) 0.02 (0.01-0.08) K/mm3 Sodium 143 (136-145) mEq/L Potassium 4.2 (3.5-5.1) mEq/L Chloride 105 (98-107) mEq/L Carbon Dioxide 31 (21-32) mEq/L Anion Gap 11.2 (5-15) BUN 12 (7-18) mg/dL Creatinine 1.1 H (0.55-1.02) mg/dL Est Cr Clr Drug Dosing 59.47 mL/min Estimated GFR (MDRD) 51 (>60) mL/min BUN/Creatinine Ratio 10.9 L (14-18) Glucose 131 H (74-106) mg/dL Calcium 9.1 (8.5-10.1) mg/dL Phosphorus 4.7 (2.6-4.7) mg/dL Magnesium 1.9 (1.8-2.4) mg/dl Bishnu Results Last 24 Hours: Microbiology 06/10/19 08:40 Urine Culture - Preliminary Urine, Catheterized Gram Negative Rods Gram Positive Cocci Gram Positive Cocci#2 06/10/19 08:54 Aerobic Blood Culture - Preliminary Blood NO GROWTH AFTER 2 DAYS Anaerobic Blood Culture - Preliminary NO GROWTH AFTER 2 DAYS Med Orders - Current: Current Medications Artificial Tears (Refresh Liquigel 1%) 0 ml EYEBOTH TID [facility] Last Admin: 06/12/19 10:43 Dose: Not Given Baclofen (Lioresal) 20 mg PO QID [facility] Last Admin: 06/12/19 09:07 Dose: 20 mg Enoxaparin Sodium (Lovenox) 40 mg SUBCUT DAILY [facility] Last Admin: 06/12/19 09:07 Dose: 40 mg Ceftriaxone Sodium 1 gm/ (Sodium Chloride) 100 mls @ 200 mls/hr IV Q24H [facility] Last Admin: 06/11/19 12:54 Dose: 200 mls/hr Levothyroxine Sodium (Levothyroxine) 150 mcg PO ACBREAKFAST [facility] Last Admin: 06/12/19 06:01 Dose: 150 mcg Lorazepam (Ativan) 0.5 mg PO BEDTIME [facility] Last Admin: 06/11/19 20:44 Dose: 0.5 mg Melatonin (Melatonin) 9 mg PO BEDTIME [facility] Last Admin: 06/11/19 20:44 Dose: 9 mg Mirtazapine (Remeron) 7.5 mg PO BEDTIME [facility] Last Admin: 06/11/19 20:43 Dose: 7.5 mg Multivitamins (Thera) 1 each PO DAILY [facility] Last Admin: 06/12/19 09:07 Dose: 1 each Naproxen (Naprosyn) 500 mg PO BEDTIME [facility] Last Admin: 06/11/19 22:58 Dose: 500 mg Ondansetron HCl (Zofran Odt) 4 mg PO Q6H PRN PRN Reason: nausea, able to take PO Ondansetron HCl (Zofran) 4 mg IV Q6H PRN PRN Reason: Nausea/Vomiting Oxycodone HCl (Oxycodone) 5 mg PO Q8H PRN PRN Reason: Pain Last Admin: 06/12/19 09:06 Dose: 5 mg Varenicline Tartrate [Chantix] 1 Mg Ptom 0 each PO DAILY [facility] Last Admin: 06/12/19 10:43 Dose: Not Given Pregabalin (Lyrica) 150 mg PO BID [facility] Last Admin: 06/12/19 09:06 Dose: 150 mg Pregabalin (Lyrica) 150 mg PO DAILY@1400 [facility] Last Admin: 06/11/19 13:02 Dose: 150 mg Pregabalin (Lyrica) 25 mg PO DAILY@1400 [facility] Last Admin: 06/11/19 13:02 Dose: 25 mg Sodium Chloride (Saline Flush) 10 ml FLUSH ASDIRECTED PRN PRN Reason: Keep Vein Open Last Admin: 06/10/19 09:12 Dose: 10 ml Sodium Chloride (Saline Flush) 10 ml FLUSH ASDIRECTED PRN PRN Reason: Keep Vein Open Discontinued Medications Sodium Chloride (Normal Saline) 1,000 mls @ 999 mls/hr IV ONETIME [facility] Last Admin: 06/10/19 09:12 Dose: 999 mls/hr Vancomycin HCl 1.75 gm/ Sodium (Chloride) 500 mls @ 250 mls/hr IV ONETIME ONE Stop: 06/10/19 08:49 Last Admin: 06/10/19 09:32 Dose: 250 mls/hr Lactated Ringer's (Ringers, Lactated) 1,000 mls @ 999 mls/hr IV .BOLUS ONE Stop: 06/10/19 10:35 Last Admin: 06/10/19 10:07 Dose: 999 mls/hr Lactated Ringer's (Ringers, Lactated) 1,000 mls @ 125 mls/hr IV ASDIRECTED [facility] Last Admin: 06/11/19 05:16 Dose: 125 mls/hr Levothyroxine Sodium (Levothyroxine) 150 mcg PO ACBREAKFAST [facility] Last Admin: 06/11/19 07:43 Dose: Not Given Mirtazapine (Remeron) 7.5 mg PO QPM [facility] Last Admin: 06/10/19 18:24 Dose: 7.5 mg Non-Formulary Medication (Alpha Lipoic Acid [Alpha Lipoic Acid]) 300 mg PO QPM [facility] Last Admin: 06/11/19 07:44 Dose: Not Given Naproxen Sodium 440 (Mg Ptom) 0 each PO BEDTIME [facility] Last Admin: 06/11/19 20:45 Dose: Not Given - Exam Quality Assessment: Urine Catheter (Chronic ), DVT Prophylaxis General: Alert, Oriented, Cooperative, No Acute Distress HEENT: Pupils Equal, Pupils Reactive, EOMI, Mucous Membr. Moist/[place] Neck: Supple, Trachea Midline Lungs: Clear to Auscultation, Normal Respiratory Effort Cardiovascular: Regular Rate, Regular Rhythm GI/Abdominal Exam: Normal Bowel Sounds, Soft, Non-Tender, No Distention, No Abnormal Bruit Extremities: Normal Inspection, Non-Tender, No Pedal Edema, Normal Capillary Refill, Other (Paraplegic ) Peripheral Pulses: 3+: Radial (L), Radial (R), Dorsalis Pedis (L), Dorsalis Pedis (R) Skin: Warm, Dry, Intact Neurological: No New Focal Deficit Psy/Mental Status: Alert, Normal Affect, Normal Mood - Problem List & Annotations (1) COPD (chronic obstructive pulmonary disease) SNOMED Code(s): 75860901 Code(s): J44.9 - CHRONIC OBSTRUCTIVE PULMONARY DISEASE, UNSPECIFIED Status : Chronic Priority: Low Current Visit: No Qualifiers: COPD type: unspecified COPD Qualified Code(s): J44.9 - Chronic obstructive pulmonary disease, unspecified (2) Cellulitis SNOMED Code(s): 385689541 Code(s): L03.90 - CELLULITIS, UNSPECIFIED Status: Acute Priority: High Current Visit: Yes Qualifiers: Site of cellulitis: extremity Site of cellulitis of extremity: lower extremity Laterality: right Qualified Code(s): L03.115 - Cellulitis of right lower limb (3) Insomnia SNOMED Code(s): 951438664 Code(s): G47.00 - INSOMNIA, UNSPECIFIED Status: Chronic Priority: Medium Current Visit: Yes Qualifiers: Insomnia type: unspecified Qualified Code(s): G47.00 - Insomnia, unspecified (4) Paraplegia SNOMED Code(s): 87946106 Code(s): G82.20 - PARAPLEGIA, UNSPECIFIED Status: Chronic Priority: Medium Current Visit: No (5) Bacteriuria SNOMED Code(s): 91103480 Code(s): R82.71 - BACTERIURIA Status: Chronic Priority: Medium Current Visit: No (6) Chronically on benzodiazepine therapy SNOMED Code(s): 567073504 Code(s): Z79.899 - OTHER LONGTERM (CURRENT) DRUG THERAPY Status: Chronic Priority: Low Current Visit: No (7) JAVAD (generalized anxiety disorder) SNOMED Code(s): 66191962 Code(s): F41.1 - GENERALIZED ANXIETY DISORDER Status: Chronic Priority: Low Current Visit: No (8) Paraplegia SNOMED Code(s): 49583705 Code(s): G82.20 - PARAPLEGIA, UNSPECIFIED Status: Chronic Priority: Medium Current Visit: No - Problem List Review Problem List Initiated/Reviewed/Updated: Yes - Plan Plan:: Non-purulent cellulitis of RLE No signs of fluctuation Systemic signs of toxicity including: fever, chills and tachycardia No need to cover MRSA Mild improvement PLAN - Continue ceftriaxone -> switch to PO keflex tomorrow - Monitor skin for progression of disease - Pain control with home medications - Monitor temperature and obtain blood cultures if febrile-> negative UTI, Urinary tract infectious disease Suprapubic catheter + Recurrent UTIs Hematuria + pyuria Change suprapubic catheter #2230 mL every month on the 18 Irrigate suprapubic catheter twice a day with 120 mL of normal saline PLAN - Ceftriaxone -> switch to PO keflex - Monitor for fever - Awaiting culture COPD (chronic obstructive pulmonary disease) Current every day smoker Chronic hypoxemic respiratory failure No acute issues Oxygen via nasal cannula 4 L to keep sats above 90% PLAN - Continue home Incruse Ellipta 1 inhalation every day - As needed DuoNebs Acute Kidney injury, stable Likely 2/2 volume depletion PLAN - Continue IV fluids with LR -> Discontinue - Renally dosed medications - Monitor urine output - Avoid nephrotoxic medications - Keep balance as neutral as possible Hypothyroidism No acute issues PLAN - Continue home Levothyroxine 50mcg QD Paraplegia Intractable muscle spasm Post laminectomy syndrome Radiculopathy Home recommendations - Skilled PT services to3 per week for up to 8 weeks persistent left shoulder pain reduction and return function, interventions to include exercise, US, stim and manual therapy - Cleanse right and left sides of groin with warm soapy water, pat dry and apply zinc barrier cream - Moisture left heel daily PLAN - Continue home management with Lyrica 150 mg twice a day and 175 mg 1400; Aleve 220 mg at bedtime; Baclofen 20 mg 4 times a day Insomnia No acute issues Home management with melatonin PLAN - Continue Melatonin 10 mg every night Generalized anxiety disorder on chronic benzodiazepine therapy No recent panic attacks Home management with Mirtazapine and Ativan PLAN - Continue Mirtazapine 7.5 mg at bedtime and Lorazepam 0.5 mg at bedtime PROPHYLAXIS: DVT- Lovenox GI- Not indicated CODE STATUS: FULL CODE NEXT OF KIN: Boyfriend: Robbie Moore, #[phone] DISPOSITION: If patient continues to improve, and no fever spikes will transition to PO antibiotics in the AM and probable discharge. <Shira Prajapati - Last Filed: 06/12/19 21:30> - Patient Data Vitals - Most Recent: Last Vital Signs Temp 36.8 C 06/12/19 17:05 Pulse 90 06/12/19 17:05 Resp 20 06/12/19 17:05 BP 98/46 L 06/12/19 17:05 Pulse Ox 96 06/12/19 17:05 I&O - Last 24 Hours: Intake & Output 06/12/19 06/12/19 06/12/19 06:59 14:59 22:59 Intake Total 1000 180 800 Output Total 2400 1250 Balance -1400 180 -450 Lab Results Last 24 Hours: Laboratory Results - last 24 hr 06/12/19 06/12/19 Range/Units 05:15 05:15 WBC 7.39 (3.98-10.04) K/mm3 RBC 4.30 (3.98-5.22) M/mm3 Hgb 12.4 (11.2-15.7) gm/dl Hct 40.8 (34.1-44.9) % MCV 94.9 H (79.4-94.8) fl MCH 28.8 (25.6-32.2) pg MCHC 30.4 L (32.2-35.5) g/dl RDW Std Deviation 53.5 H (36.4-46.3) fL Plt Count 186 (182-369) K/mm3 MPV 10.8 (9.4-12.3) fl Neut % (Auto) 62.0 (34.0-71.1) % Lymph % (Auto) 22.9 (19.3-51.7) % [place] % (Auto) 14.2 H (4.7-12.5) % Eos % (Auto) 0.1 L (0.7-5.8) Baso % (Auto) 0.3 (0.1-1.2) % Neut # (Auto) 4.58 (1.56-6.13) K/mm3 Lymph # (Auto) 1.69 (1.18-3.74) K/mm3 [place] # (Auto) 1.05 H (0.24-0.36) K/mm3 Eos # (Auto) 0.01 L (0.04-0.36) K/mm3 Baso # (Auto) 0.02 (0.01-0.08) K/mm3 Sodium 143 (136-145) mEq/L Potassium 4.2 (3.5-5.1) mEq/L Chloride 105 (98-107) mEq/L Carbon Dioxide 31 (21-32) mEq/L Anion Gap 11.2 (5-15) BUN 12 (7-18) mg/dL Creatinine 1.1 H (0.55-1.02) mg/dL Est Cr Clr Drug Dosing 59.47 mL/min Estimated GFR (MDRD) 51 (>60) mL/min BUN/Creatinine Ratio 10.9 L (14-18) Glucose 131 H (74-106) mg/dL Calcium 9.1 (8.5-10.1) mg/dL Phosphorus 4.7 (2.6-4.7) mg/dL Magnesium 1.9 (1.8-2.4) mg/dl Bishnu Results Last 24 Hours: Microbiology 06/10/19 08:40 Urine Culture - Preliminary Urine, Catheterized Gram Negative Rods Gram Positive Cocci Gram Positive Cocci#2 06/10/19 08:54 Aerobic Blood Culture - Preliminary Blood NO GROWTH AFTER 2 DAYS Anaerobic Blood Culture - Preliminary NO GROWTH AFTER 2 DAYS Med Orders - Current: Current Medications Artificial Tears (Refresh Liquigel 1%) 0 ml EYEBOTH TID [facility] Last Admin: 06/12/19 14:00 Dose: Not Given Baclofen (Lioresal) 20 mg PO QID [facility] Last Admin: 06/12/19 20:49 Dose: 20 mg Cephalexin (Keflex) 500 mg PO Q6HR [facility] Enoxaparin Sodium (Lovenox) 40 mg SUBCUT DAILY [facility] Last Admin: 06/12/19 09:07 Dose: 40 mg Levothyroxine Sodium (Levothyroxine) 150 mcg PO ACBREAKFAST [facility] Last Admin: 06/12/19 06:01 Dose: 150 mcg Lorazepam (Ativan) 0.5 mg PO BEDTIME [facility] Last Admin: 06/12/19 20:49 Dose: 0.5 mg Melatonin (Melatonin) 9 mg PO BEDTIME [facility] Last Admin: 06/12/19 20:48 Dose: 9 mg Mirtazapine (Remeron) 7.5 mg PO BEDTIME [facility] Last Admin: 06/12/19 20:48 Dose: 7.5 mg Multivitamins (Thera) 1 each PO DAILY [facility] Last Admin: 06/12/19 09:07 Dose: 1 each Naproxen (Naprosyn) 500 mg PO BEDTIME [facility] Last Admin: 06/12/19 20:48 Dose: 500 mg Ondansetron HCl (Zofran Odt) 4 mg PO Q6H PRN PRN Reason: nausea, able to take PO Ondansetron HCl (Zofran) 4 mg IV Q6H PRN PRN Reason: Nausea/Vomiting Oxycodone HCl (Oxycodone) 5 mg PO Q8H PRN PRN Reason: Pain Last Admin: 06/12/19 16:56 Dose: 5 mg Varenicline Tartrate [Chantix] 1 Mg Ptom 0 each PO DAILY [facility] Last Admin: 06/12/19 10:43 Dose: Not Given Pregabalin (Lyrica) 150 mg PO BID [facility] Last Admin: 06/12/19 20:48 Dose: 150 mg Pregabalin (Lyrica) 150 mg PO DAILY@1400 [facility] Last Admin: 06/12/19 14:06 Dose: 150 mg Pregabalin (Lyrica) 25 mg PO DAILY@1400 [facility] Last Admin: 06/12/19 14:05 Dose: 25 mg Sodium Chloride (Saline Flush) 10 ml FLUSH ASDIRECTED PRN PRN Reason: Keep Vein Open Last Admin: 06/10/19 09:12 Dose: 10 ml Sodium Chloride (Saline Flush) 10 ml FLUSH ASDIRECTED PRN PRN Reason: Keep Vein Open Discontinued Medications Sodium Chloride (Normal Saline) 1,000 mls @ 999 mls/hr IV ONETIME [facility] Last Admin: 06/10/19 09:12 Dose: 999 mls/hr Vancomycin HCl 1.75 gm/ Sodium (Chloride) 500 mls @ 250 mls/hr IV ONETIME ONE Stop: 06/10/19 08:49 Last Admin: 06/10/19 09:32 Dose: 250 mls/hr Lactated Ringer's (Ringers, Lactated) 1,000 mls @ 999 mls/hr IV .BOLUS ONE Stop: 06/10/19 10:35 Last Admin: 06/10/19 10:07 Dose: 999 mls/hr Ceftriaxone Sodium 1 gm/ (Sodium Chloride) 100 mls @ 200 mls/hr IV Q24H [facility] Last Admin: 06/12/19 14:01 Dose: 200 mls/hr Lactated Ringer's (Ringers, Lactated) 1,000 mls @ 125 mls/hr IV ASDIRECTED [facility] Last Admin: 06/11/19 05:16 Dose: 125 mls/hr Levothyroxine Sodium (Levothyroxine) 150 mcg PO ACBREAKFAST [facility] Last Admin: 06/11/19 07:43 Dose: Not Given Mirtazapine (Remeron) 7.5 mg PO QPM [facility] Last Admin: 06/10/19 18:24 Dose: 7.5 mg Non-Formulary Medication (Alpha Lipoic Acid [Alpha Lipoic Acid]) 300 mg PO QPM [facility] Last Admin: 06/11/19 07:44 Dose: Not Given Naproxen Sodium 440 (Mg Ptom) 0 each PO BEDTIME [facility] Last Admin: 06/11/19 20:45 Dose: Not Given - Problem List & Annotations (1) Paraplegia SNOMED Code(s): 59109074 Code(s): G82.20 - PARAPLEGIA, UNSPECIFIED Status: Chronic Priority: Medium Current Visit: No (2) COPD (chronic obstructive pulmonary disease) SNOMED Code(s): 63368864 Code(s): J44.9 - CHRONIC OBSTRUCTIVE PULMONARY DISEASE, UNSPECIFIED Status : Chronic Priority: Low Current Visit: No Qualifiers: COPD type: unspecified COPD Qualified Code(s): J44.9 - Chronic obstructive pulmonary disease, unspecified (3) Chronically on benzodiazepine therapy SNOMED Code(s): 337600250 Code(s): Z79.899 - OTHER STUDIO DIRECTOR (CURRENT) DRUG THERAPY Status: Chronic Priority: Low Current Visit: No (4) Neutrophilic leukocytosis SNOMED Code(s): 270700240, 113867425 Code(s): D72.9 - DISORDER OF WHITE BLOOD CELLS, UNSPECIFIED Status: Acute Current Visit: Yes (5) Recurrent UTI SNOMED Code(s): 469318643 Code(s): N39.0 - URINARY TRACT INFECTION, SITE NOT SPECIFIED Status: Acute Priority: High Current Visit: No (6) Suprapubic catheter SNOMED Code(s): 948200531, 479586849 Code(s): Z93.59 - OTHER CYSTOSTOMY STATUS Status: Acute Priority: High Current Visit: No (7) UTI, Urinary tract infectious disease SNOMED Code(s): 48376049 Code(s): N39.0 - URINARY TRACT INFECTION, SITE NOT SPECIFIED Status: Acute Current Visit: No (8) Vitamin D deficiency SNOMED Code(s): 20358495 Code(s): E55.9 - VITAMIN D DEFICIENCY, UNSPECIFIED Status: Acute Current Visit: Yes (9) Tubulointerstitial nephritis SNOMED Code(s): 810445959 Code(s): N12 - TUBULO-INTERSTITIAL NEPHRITIS, NOT SPCF ACUTE OR CHRONIC Status: Acute Current Visit: Yes (10) Recurrent oral aphthae SNOMED Code(s): 842518441 Code(s): K12.0 - RECURRENT ORAL APHTHAE Status: Acute Current Visit: Yes (11) Post laminectomy syndrome SNOMED Code(s): 26972221 Code(s): M96.1 - POSTLAMINECTOMY SYNDROME, NOT ELSEWHERE CLASSIFIED Status : Acute Current Visit: Yes (12) Insomnia SNOMED Code(s): 071018931 Code(s): G47.00 - INSOMNIA, UNSPECIFIED Status: Chronic Priority: Medium Current Visit: Yes Qualifiers: Insomnia type: unspecified Qualified Code(s): G47.00 - Insomnia, unspecified (13) Intractable muscle spasm SNOMED Code(s): 24830076, 34291554 Code(s): M62.40 - CONTRACTURE OF MUSCLE, UNSPECIFIED SITE Status: Acute Current Visit: Yes (14) Current every day smoker SNOMED Code(s): 833406988, 219174008 Code(s): F17.200 - NICOTINE DEPENDENCE, UNSPECIFIED, UNCOMPLICATED Status: Acute Current Visit: Yes (15) Hypothyroid SNOMED Code(s): 85040731 Code(s): E03.9 - HYPOTHYROIDISM, UNSPECIFIED Status: Acute Current Visit : No (16) JAVAD (generalized anxiety disorder) SNOMED Code(s): 48176273 Code(s): F41.1 - GENERALIZED ANXIETY DISORDER Status: Chronic Priority: Low Current Visit: No - My Orders Last 24 Hours: My Active Orders 06/11/19 21:00 Melatonin 9 mg PO BEDTIME Mirtazapine [Remeron] 7.5 mg PO BEDTIME 06/11/19 22:45 Naproxen [Naprosyn] 500 mg PO BEDTIME 06/12/19 18:14 Patient Status [ADT] Routine - Plan Plan:: Case was discussed with Sami Ybarra and agree with his assessment and plan set forth for this patient.
[2019-06-12] MEDS: cefTRIAXone 1 GM in Sodium Chloride 0.9% 100 ML IV SCH (14:01)
[2019-06-12] MEDS: Pregabalin 25 MG Cap PO SCH (14:05)
[2019-06-12] MEDS: Mirtazapine 15 MG Tab PO SCH (20:48)
[2019-06-12] MEDS: Melatonin 3 MG Tab PO SCH (20:48)
[2019-06-12] MEDS: Naproxen 500 MG Tab PO SCH (20:48)
[2019-06-12] MEDS: LORazepam 0.5 MG Tab PO SCH (20:49)
[2019-06-13] MEDS: oxyCODONE 5 MG Tab PO PRN (03:45)
[2019-06-13] MEDS: Levothyroxine 75 MCG Tab PO SCH (06:13)
[2019-06-13] MEDS: Baclofen 10 MG Tab PO SCH ×2 (08:57→13:48)
[2019-06-13] MEDS: Pregabalin 75 MG Cap PO SCH ×2 (08:58→13:50)
[2019-06-13] MEDS: Multivitamins,Therapeutic Tab PO SCH (08:58)
[2019-06-13] MEDS: Enoxaparin 40 MG/0.4 ML Syringe SUBCUT SCH (09:01)
--- NOTE | 2019-06-13 09:21 | PCM.DCSUM1 ---
Discharge Summary - Hospital Course HPI Initial Comments: This is a 54 year old female who was brought to the ED from [facility] for worswening fever and rash on r leg. As per patient symptoms started having fevers and uncontrollable shakes, measured temp 103. First noticed the rash last night, no pain. Tylenol was given which improved the fever. Denies any nausea, vomiting, abdominal pain, dizziness, headaches, shortness of breath, coughing, nasal congestion Sore throat since before Tuesday, no changes since then. [facility] notes: 06/09/2019 at 2:37: While giving medications he was observably resident was visibly an excessively shaking. When asked if she was okay residence stated that she has been cold and shaking all day. At 19:21 resident requested when necessary pain medication no observed S/S shaking has been noted. Resident's temperature was 101.2, she was covered in one warm blanket, and she denied any other complaints. Lung sounds were diminished and clear throughout. Urine was clear yellow with strong ammonia order. I will put his current over 1400. When necessary Tylenol was given and effective. Resident is currently afebrile at 98.4 At 22:20 patient was visibly shaking, temperature 100.3. Urine yellow and cloudy. Catheter bag changed his suprapubic catheter flushed per ordered with 120 mL's of normal saline. Clear return in patent catheter Urine culture ordered by 06/10/19 4:00 temp 102.2, RLE hot to touch and red, no open areas, given PRN Tylenol Tmax recorded 102.2 Diagnosis: Stroke: No - Discharge Data Discharge Date: 06/13/19 (Admit date: 06/10/19) Discharge Disposition: DC/Tfer to SNF 03 Condition: Good - Referral to Home Health Primary Care Physician: Geovany Matthews MD - Discharge Diagnosis/Problem(s) (1) COPD (chronic obstructive pulmonary disease) SNOMED Code(s): 02197300 ICD Code: J44.9 - CHRONIC OBSTRUCTIVE PULMONARY DISEASE, UNSPECIFIED Status : Chronic Priority: Low Current Visit: No Qualifiers: COPD type: unspecified COPD Qualified Code(s): J44.9 - Chronic obstructive pulmonary disease, unspecified (2) Cellulitis SNOMED Code(s): 392751003 ICD Code: L03.90 - CELLULITIS, UNSPECIFIED Status: Acute Priority: High Current Visit: Yes Qualifiers: Site of cellulitis: extremity Site of cellulitis of extremity: lower extremity Laterality: right Qualified Code(s): L03.115 - Cellulitis of right lower limb (3) Insomnia SNOMED Code(s): 900273776 ICD Code: G47.00 - INSOMNIA, UNSPECIFIED Status: Chronic Priority: Medium Current Visit: Yes Qualifiers: Insomnia type: unspecified Qualified Code(s): G47.00 - Insomnia, unspecified (4) Paraplegia SNOMED Code(s): 69106411 ICD Code: G82.20 - PARAPLEGIA, UNSPECIFIED Status: Chronic Priority: Medium Current Visit: No (5) Bacteriuria SNOMED Code(s): 82777114 ICD Code: R82.71 - BACTERIURIA Status: Chronic Priority: Medium Current Visit: No (6) Chronically on benzodiazepine therapy SNOMED Code(s): 212254333 ICD Code: Z79.899 - OTHER DIRECTOR OF SPECIAL EVENTS (CURRENT) DRUG THERAPY Status: Chronic Priority: Low Current Visit: No (7) JAVAD (generalized anxiety disorder) SNOMED Code(s): 16804783 ICD Code: F41.1 - GENERALIZED ANXIETY DISORDER Status: Chronic Priority: Low Current Visit: No (8) Paraplegia SNOMED Code(s): 84126618 ICD Code: G82.20 - PARAPLEGIA, UNSPECIFIED Status: Chronic Priority: Medium Current Visit: No - Patient Summary/Data Labs Pending at D/C: None Recommended Follow-up Testing/Procedures: Follow-up with primary care provider within 7-10 days of discharge, sooner if needed. Hospital Course: Valentine was admitted to the hospital observation status and later upgraded to inpatient for right leg cellulitis and a suspected UTI. Placed on IV Rocephin and later transitioned to by mouth Keflex prior to discharge. The erythema and redness improved greatly throughout her stay. She is a paraplegic secondary to a failed back surgery. She was noted to have a fever in [facility] and urine was suggestive of UTI. Her urine here grew out pseudomonas aeruginosa, Staphylococcus aureus, enterococcus facialis. As noted she had only been on IV Rocephin while here and both her clinical appearance and labs improved throughout her stay. After much discussion with multiple providers and pharmacy, it is thought she may be colonized for several of these bugs. Per the patient assisted staff for basing her suspected UTI on appearance of her urine and no other symptoms. It is felt her symptoms were secondary to her right leg cellulitis and not the bacteria in her urine. Therefore it appears she has asymptomatic bacteriuria. Because of this the decision was made not to treat this. She otherwise has done well. She will be discharged on 7 more days of 4 times a day by mouth Keflex. She was instructed to follow- up with her primary care provider within 7-10 days of discharge or sooner if needed. - Patient Instructions Diet: Usual Diet as Tolerated Activity: As Tolerated Showering/Bathing: May Shower Notify Provider of: Fever, Increased Pain, Swelling and Redness, Drainage, Nausea and/or Vomiting - Discharge Plan *PRESCRIPTION DRUG MONITORING PROGRAM REVIEWED*: No *COPY OF PRESCRIPTION DRUG MONITORING REPORT IN PATIENT DANNY: No Prescriptions/Med Rec: cephALEXin [Keflex] 500 mg PO QID 7 Days #28 cap Home Medications: Home Meds Acetaminophen [Tylenol] 650 mg PO Q4H PRN 11/17/18 [History] Alpha Lipoic Acid 300 mg PO BEDTIME 11/17/18 [History] Baclofen 20 mg PO QID 11/17/18 [History] Bisacodyl 10 mg RECTAL DAILY PRN 11/17/18 [History] LORazepam [Ativan] 0.5 mg PO BEDTIME 11/17/18 [History] Levothyroxine 150 mcg PO ACBREAKFAST 11/17/18 [History] Loperamide HCl [Imodium A-D] 2 mg PO TID PRN 11/17/18 [History] Magnesium Citrate 150 ml PO BID PRN 11/17/18 [History] Multivitamin [Daily Multiple Vitamin] 1 tab PO DAILY 11/17/18 [History] Naproxen Sodium [Aleve] 440 mg PO BEDTIME 11/17/18 [History] Ondansetron [Zofran ODT] 4 mg PO TID PRN 11/17/18 [History] SUMAtriptan Succinate [Imitrex] 100 mg PO BID PRN 11/17/18 [History] Trolamine Salicylate/Aloe Vera [Aspercreme 10% Cream] 1 applic TOP QID PRN 11/17 [History] Albuterol Sulfate 1 vial INH BID PRN 01/18/19 [History] Mag Hydrox/Al Hydrox/Simeth [[place]] 30 ml PO Q4H PRN 01/18/19 [History] Melatonin 10 mg PO BEDTIME 01/18/19 [History] Na Phos,M-B/Na Phos,DI-B [Fleet Enema] 1 applic RECTAL ASDIRECTED PRN 01/18/19 [ History] Naloxone HCl [Narcan] 4 mg DEMETRI ASDIRECTED PRN 01/18/19 [History] Polyethylene Glycol 3350 [MiraLAX] 17 gm PO DAILY PRN 01/18/19 [History] Pregabalin [Lyrica] 175 mg PO 1400 01/18/19 [History] Albuterol/Ipratropium [DuoNeb 3.0-0.5 MG/3 ML] 3 ml NEB Q6H PRN #120 neb [Rx] oxyCODONE 5 mg PO Q8H PRN #30 tablet 01/22/19 [Rx] Albuterol Sulfate [Albuterol Sulfate Hfa] 2 puff INH Q6HR PRN 03/25/19 [History] Sodium Chloride/Aloe Vera [[place] Saline Nasal Gel [place]] 1 applic NASBOTH TID PRN 03/25/19 [History] Acetaminophen [Tylenol Extra Strength] 500 mg PO Q6H PRN 06/10/19 [History] Ibuprofen 600 mg PO Q6H PRN 06/10/19 [History] Menthol [Biofreeze] 1 applic TOP QID PRN 06/10/19 [History] Mirtazapine 7.5 mg PO BEDTIME 06/10/19 [History] Oxymetazoline [Afrin Original 0.05% Nasal [place]] 2 spray INH BID PRN 06/10/19 [ History] Polyvinyl Alcohol/Povidone/Pf [Refresh Classic Eye Drops] 1 drop EYEBOTH TID 10/24 [History] Pregabalin [Lyrica] 150 mg PO BID 06/10/19 [History] Umeclidinium [place] [Incruse Ellipta*] 1 inhalation INH DAILY 06/10/19 [History ] Varenicline Tartrate [Chantix] 1 mg PO DAILY 06/10/19 [History] cephALEXin [Keflex] 500 mg PO QID 7 Days #28 cap 06/13/19 [Rx] Oxygen Therapy Mode: Nasal Cannula Oxygen Flow Rate (L/min): 4 Maintain SPO2% less than: 90 Patient Handouts: Cellulitis, Adult, Chronic Obstructive Pulmonary Disease Exacerbation, Sepsis, Adult, Steps to Quit Smoking Referrals: Geovany Matthews MD [Primary Care Provider] - (Please make an appointment to follow-up in 7-10 days.) - Discharge Summary/Plan Comment DC Time >30 min.: Yes (45 mins ) - General Info Date of Service: 06/13/19 Admission Dx/Problem (Free Text: Cellulitis Functional Status: Reports: Pain Controlled, Tolerating Diet, Urinating. Denies : Ambulating, New Symptoms - Review of Systems General: Reports: No Symptoms. Denies: Fever, Weakness, Fatigue, Malaise, Chills HEENT: Reports: No Symptoms. Denies: Headaches, Sore Throat Pulmonary: Reports: No Symptoms. Denies: Shortness of Breath, Pleuritic Chest Pain, Cough, Sputum, Wheezing Cardiovascular: Reports: No Symptoms. Denies: Chest Pain, Palpitations, Edema Gastrointestinal: Reports: No Symptoms. Denies: Abdominal Pain, Constipation, Nausea, Vomiting Genitourinary: Reports: No Symptoms. Denies: Pain Musculoskeletal: Reports: No Symptoms Skin: Reports: No Symptoms. Denies: Cyanosis Neurological: Reports: Pre-Existing Deficit (Paraplegia ). Denies: Confusion Psychiatric: Reports: No Symptoms - Patient Data Vitals - Most Recent: Last Vital Signs Temp 98.1 F 06/13/19 03:34 Pulse 76 06/13/19 03:34 Resp 18 06/13/19 03:34 BP 93/58 L 06/13/19 03:34 Pulse Ox 93 L 06/13/19 03:34 Weight - Most Recent: 226 lb 12.8 oz I&O - Last 24 hours: Intake & Output 06/12/19 06/13/19 06/13/19 22:59 06:59 14:59 Intake Total 1130 1600 Output Total 1250 1850 Balance -120 -250 JENNIFER Results - Last 24 hrs: Microbiology 06/10/19 08:54 Aerobic Blood Culture - Preliminary Blood NO GROWTH AFTER 3 DAYS Anaerobic Blood Culture - Preliminary NO GROWTH AFTER 3 DAYS 06/10/19 08:40 Urine Culture - Preliminary Urine, Catheterized Pseudomonas Aeruginosa Staphylococcus Aureus Gram Positive Cocci#2 Med Orders - Current: Current Medications Artificial Tears (Refresh Liquigel 1%) 0 ml EYEBOTH TID [facility] Last Admin: 06/12/19 21:44 Dose: Not Given Baclofen (Lioresal) 20 mg PO QID [facility] Last Admin: 06/13/19 08:57 Dose: 20 mg Cephalexin (Keflex) 500 mg PO QID [facility] Enoxaparin Sodium (Lovenox) 40 mg SUBCUT DAILY [facility] Last Admin: 06/13/19 09:01 Dose: 40 mg Levothyroxine Sodium (Levothyroxine) 150 mcg PO ACBREAKFAST [facility] Last Admin: 06/13/19 06:13 Dose: 150 mcg Lorazepam (Ativan) 0.5 mg PO BEDTIME [facility] Last Admin: 06/12/19 20:49 Dose: 0.5 mg Melatonin (Melatonin) 9 mg PO BEDTIME [facility] Last Admin: 06/12/19 20:48 Dose: 9 mg Mirtazapine (Remeron) 7.5 mg PO BEDTIME [facility] Last Admin: 06/12/19 20:48 Dose: 7.5 mg Multivitamins (Thera) 1 each PO DAILY [facility] Last Admin: 06/13/19 08:58 Dose: 1 each Naproxen (Naprosyn) 500 mg PO BEDTIME [facility] Last Admin: 06/12/19 20:48 Dose: 500 mg Ondansetron HCl (Zofran Odt) 4 mg PO Q6H PRN PRN Reason: nausea, able to take PO Ondansetron HCl (Zofran) 4 mg IV Q6H PRN PRN Reason: Nausea/Vomiting Oxycodone HCl (Oxycodone) 5 mg PO Q8H PRN PRN Reason: Pain Last Admin: 06/13/19 03:45 Dose: 5 mg Varenicline Tartrate [Chantix] 1 Mg Ptom 0 each PO DAILY [facility] Last Admin: 06/12/19 10:43 Dose: Not Given Pregabalin (Lyrica) 150 mg PO BID [facility] Last Admin: 06/13/19 08:58 Dose: 150 mg Pregabalin (Lyrica) 150 mg PO DAILY@1400 [facility] Last Admin: 06/12/19 14:06 Dose: 150 mg Pregabalin (Lyrica) 25 mg PO DAILY@1400 [facility] Last Admin: 06/12/19 14:05 Dose: 25 mg Sodium Chloride (Saline Flush) 10 ml FLUSH ASDIRECTED PRN PRN Reason: Keep Vein Open Discontinued Medications Cephalexin (Keflex) 500 mg PO Q6HR [facility] Sodium Chloride (Normal Saline) 1,000 mls @ 999 mls/hr IV ONETIME [facility] Last Admin: 06/10/19 09:12 Dose: 999 mls/hr Vancomycin HCl 1.75 gm/ Sodium (Chloride) 500 mls @ 250 mls/hr IV ONETIME ONE Stop: 06/10/19 08:49 Last Admin: 06/10/19 09:32 Dose: 250 mls/hr Lactated Ringer's (Ringers, Lactated) 1,000 mls @ 999 mls/hr IV .BOLUS ONE Stop: 06/10/19 10:35 Last Admin: 06/10/19 10:07 Dose: 999 mls/hr Ceftriaxone Sodium 1 gm/ (Sodium Chloride) 100 mls @ 200 mls/hr IV Q24H [facility] Last Admin: 06/12/19 14:01 Dose: 200 mls/hr Lactated Ringer's (Ringers, Lactated) 1,000 mls @ 125 mls/hr IV ASDIRECTED [facility] Last Admin: 06/11/19 05:16 Dose: 125 mls/hr Levothyroxine Sodium (Levothyroxine) 150 mcg PO ACBREAKFAST [facility] Last Admin: 06/11/19 07:43 Dose: Not Given Mirtazapine (Remeron) 7.5 mg PO QPM [facility] Last Admin: 06/10/19 18:24 Dose: 7.5 mg Non-Formulary Medication (Alpha Lipoic Acid [Alpha Lipoic Acid]) 300 mg PO QPM [facility] Last Admin: 06/11/19 07:44 Dose: Not Given Naproxen Sodium 440 (Mg Ptom) 0 each PO BEDTIME [facility] Last Admin: 06/11/19 20:45 Dose: Not Given Sodium Chloride (Saline Flush) 10 ml FLUSH ASDIRECTED PRN PRN Reason: Keep Vein Open Last Admin: 06/10/19 09:12 Dose: 10 ml - Exam Quality Assessment: Reports: Supplemental Oxygen (4L - at chronic baseline ) General: Reports: Alert, Oriented, Cooperative, No Acute Distress HEENT: Reports: Pupils Equal, Pupils Reactive, EOMI, Mucous Membr. Moist/[place] Neck: Reports: Supple, Trachea Midline Lungs: Reports: Clear to Auscultation, Normal Respiratory Effort Cardiovascular: Reports: Regular Rate, Regular Rhythm GI/Abdominal Exam: Normal Bowel Sounds, Soft, Non-Tender, No Organomegaly, No Distention (Female) Exam: Deferred Rectal (Female) Exam: Deferred Extremities: No Pedal Edema, Limited Range of Motion (Paraplegic - lower extremities ), Redness (improving in right leg ). No: Increased Warmth Skin: Reports: Warm, Dry, Intact Wound/Incisions: Reports: No Drainage, Erythema Improving Neurological: Reports: No New Focal Deficit Psy/Mental Status: Reports: Alert, Other (Flat affect )
[2019-06-13 10:18] VITALS: BP 92/58; PULSE 69
[2019-06-13] MEDS: Carboxymethylcellulose Sodium 1% Ophth Gel 15 ML Bottle EYEBOTH SCH (11:54)
[2019-06-13] MEDS: VARENICLINE TARTRATE 1 MG PO SCH (11:55)
[2019-06-13] MEDS ORDERED: Cephalexin 500 MG Cap PO SCH ×2 (12:00→13:00)
[2019-06-13] MEDS: Pregabalin 25 MG Cap PO SCH (13:51)
== END 2019-06-13 14:06 | DRG 603 ==
LOC: JD.ED 07:21 → JD.MS 13:55 → OBSVTOIN 06-12 18:14
PROVIDERS: ADMIT Internal Medicine; ATTEND Internal Medicine
DX: L03.115 Cellulitis of right lower limb (principal); N39.0 Urinary tract infection, site not specified; G82.20 Paraplegia, unspecified; N17.9 Acute kidney failure, unspecified; J96.11 Chronic respiratory failure with hypoxia; B96.5 Pseudomonas (aeruginosa) (mallei) (pseudomallei) as the cause of diseases classified elsewhere; B95.2 Enterococcus as the cause of diseases classified elsewhere; M54.9 Dorsalgia, unspecified; G89.29 Other chronic pain; B95.61 Methicillin susceptible Staphylococcus aureus infection as the cause of diseases classified elsewhere; J44.9 Chronic obstructive pulmonary disease, unspecified; G47.00 Insomnia, unspecified; F41.1 Generalized anxiety disorder; E55.9 Vitamin D deficiency, unspecified; K12.0 Recurrent oral aphthae; E89.0 Postprocedural hypothyroidism; F17.210 Nicotine dependence, cigarettes, uncomplicated; M62.81 Muscle weakness (generalized); M96.1 Postlaminectomy syndrome, not elsewhere classified; Z93.50 Unspecified cystostomy status; Z90.710 Acquired absence of both cervix and uterus; M62.40 Contracture of muscle, unspecified site; F17.200 Nicotine dependence, unspecified, uncomplicated; E03.9 Hypothyroidism, unspecified; L53.9 Erythematous condition, unspecified; R50.9 Fever, unspecified; M54.10 Radiculopathy, site unspecified; I10 Essential (primary) hypertension; K59.09 Other constipation; Z96.0 Presence of urogenital implants; Z88.1 Allergy status to other antibiotic agents; Z79.899 Other long term (current) drug therapy; Z87.440 Personal history of urinary (tract) infections
CPT/HCPCS: 36415; 71045; 71045-26; 80048; 80053; 81001; 83605; 83735; 84100; 85007; 85025; 85027; 85610; 86140; 87040; 87086; 87088; 87184; 87186; 94760; 96365; 96366; 99284; 99284-25; A9270-GY; J0696; J1650; J3370; J7030; J7040; J7120

== ENCOUNTER 2020-09-05 06:42 | Emergency (ER) | payer MEDICAID ==
--- NOTE | 2020-09-05 06:58 | EDM.PDOC ---
<Navi Falk - Last Filed: 09/05/20 07:12> ED HPI GENERAL MEDICAL PROBLEM - General Stated Complaint: [facility] Time Seen by Provider: 09/05/20 06:42 Source of Information: Reports: Patient, EMS, RN History Limitations: Reports: No Limitations - History of Present Illness INITIAL COMMENTS - FREE TEXT/NARRATIVE: A stroke alert was called for this patient. Ms. Roth is a very pleasant 55-year-old woman who is now brought to the ED by EMS from the [facility] for concern of a stroke. 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 Her last known normal was at 02:30 this morning, when she went to bed. She was woken at 05:30 in order to be given her a.m. pills, at which time her nurse felt that the patient had a right facial droop, garbled speech, and the inability to use either of her upper extremities. Her symptoms essentially resolved after 10 to 15 minutes, with the exception of a possible slight right facial droop. When EMS arrived, they found the patient to be "conscious". They did not check a blood glucose. 2 L of O2 were applied per nasal cannula. From the patient's perspective, she states that she was fully aware of what was going on, but that she was unable to swallow the pills that were given to her, or communicate. She states that she has had similar symptoms twice previously, after being woken up early after going to bed late. Prior work-ups for those events were negative for stroke. Here in the ED, the patient is found to be hemodynamically stable, afebrile, saturating 95% on room air. Prior to this morning's event, the patient denies having a recent fever, chills, sore throat, ear pain, nasal or sinus congestion, cough, dyspnea, chest pain, p alpitations, nausea, vomiting, constipation, diarrhea, abdominal pain, urinary symptoms, recent weight gain or weight loss, recent bloody bowel movements or black bowel movements, recent joint aches, headaches, or rashes. The patient's PCP is Dr. Geovany Matthews. She did not receive an influenza vaccine this season, and declined an offer to receive one here in the ED. - Related Data Allergies Allergy/AdvReac Type Severity Reaction Status Date / Time cefixime [From Suprax] Allergy Mild Itching Verified 06/10/19 15:19 Home Meds: Home Meds Acetaminophen [Tylenol] 650 mg PO Q4H PRN 11/17/18 [History] Alpha Lipoic Acid 300 mg PO BEDTIME 11/17/18 [History] Baclofen 20 mg PO QID 11/17/18 [History] Bisacodyl 10 mg RECTAL DAILY PRN 11/17/18 [History] LORazepam [Ativan] 0.5 mg PO BEDTIME 11/17/18 [History] Levothyroxine 150 mcg PO ACBREAKFAST 11/17/18 [History] Loperamide HCl [Imodium A-D] 2 mg PO TID PRN 11/17/18 [History] Magnesium Citrate 150 ml PO BID PRN 11/17/18 [History] Multivitamin [Daily Multiple Vitamin] 1 tab PO DAILY 11/17/18 [History] Naproxen Sodium [Aleve] 440 mg PO BEDTIME 11/17/18 [History] Ondansetron [Zofran ODT] 4 mg PO TID PRN 11/17/18 [History] SUMAtriptan succinate [Imitrex] 100 mg PO BID PRN 11/17/18 [History] Trolamine Salicylate/Aloe Vera [Aspercreme 10% Cream] 1 applic TOP QID PRN 0 11/17/18 [History] Albuterol Sulfate 1 vial INH BID PRN 01/18/19 [History] Mag Hydrox/Aluminum Hyd/Simeth [[place]] 30 ml PO Q4H PRN 01/18/19 [History] Melatonin 10 mg PO BEDTIME 01/18/19 [History] Na Phos,M-B/Na Phos,DI-B [Fleet Enema] 1 applic RECTAL ASDIRECTED PRN 01/18/19 [History] Naloxone HCl [Narcan] 4 mg DEMETRI ASDIRECTED PRN 01/18/19 [History] Pregabalin [Lyrica] 175 mg PO 1400 01/18/19 [History] polyethylene glycoL 3350 [MiraLAX] 17 gm PO DAILY PRN 01/18/19 [History] Albuterol/Ipratropium [DuoNeb 3.0-0.5 MG/3 ML] 3 ml NEB Q6H PRN #120 neb 01/22/19 [Rx] oxyCODONE 5 mg PO Q8H PRN #30 tablet 01/22/19 [Rx] Albuterol Sulfate [Albuterol Sulfate Hfa] 2 puff INH Q6HR PRN 03/25/19 [History] Sodium Chloride/Aloe Vera [[place] Saline Nasal Gel [place]] 1 applic NASBOTH TID PRN 03/25/19 [History] Acetaminophen [Tylenol Extra Strength] 500 mg PO Q6H PRN 06/10/19 [History] Ibuprofen 600 mg PO Q6H PRN 06/10/19 [History] Menthol [Biofreeze] 1 applic TOP QID PRN 06/10/19 [History] Mirtazapine 7.5 mg PO BEDTIME 06/10/19 [History] Oxymetazoline [Afrin Original 0.05% Nasal [place]] 2 spray INH BID PRN 06/10/19 [History] Polyvinyl Alcohol/Povidone/Pf [Refresh Classic Eye Drops] 1 drop EYEBOTH TID 06/10/19 [History] Pregabalin [Lyrica] 150 mg PO BID 06/10/19 [History] Umeclidinium [place] [Incruse Ellipta*] 1 inhalation INH DAILY 06/10/19 [History] Varenicline Tartrate [Chantix] 1 mg PO DAILY 06/10/19 [History] cephALEXin [Keflex] 500 mg PO QID 7 Days #28 cap 06/13/19 [Rx] Past Medical History Genitourinary History: Reports: Neurogenic Bladder (suprapubic catheter) Neurological History: Reports: Migraines, Other (See Below) (Paralyzed T6 down due to spinal infection) Psychiatric History: Reports: Addiction (opioids), Anxiety, Depression, Other (See Below) (insomnia) Endocrine/Metabolic History: Reports: Hypothyroidism, Obesity/BMI 30+ - Infectious Disease History Infectious Disease History: Reports: Chicken Pox, Measles, MRSA - Past Surgical History HEENT Surgical History: Reports: Oral Surgery (dental extractions), Tonsillectomy Female Surgical History: Reports: Hysterectomy (partial), Suprapubic Catheter Placement Endocrine Surgical History: Reports: Thyroidectomy (partial) Neurological Surgical History: Reports: Lumbar Spine (x 4) Social & Family History - Tobacco Use Tobacco Use Status *Q: Current Every Day Tobacco User Years of Tobacco use: 41 Packs/Tins Daily: 0.6 Packs/Tins Daily Comment: Down from 1 ppd - Caffeine Use Caffeine Use: Reports: Coffee - Alcohol Use Alcohol Use History: Yes Alcohol Use Frequency: Socially - Recreational Drug Use Recreational Drug Use: No - Living Situation & Occupation Living situation: Reports: , Extended Care Facility ([facility]) Occupation: Disabled ED ROS GENERAL - Review of Systems Review Of Systems: Comprehensive ROS is negative, except as noted in HPI. ED EXAM, NEURO - Physical Exam Exam: See Below Exam Limited By: No Limitations General Appearance: Alert, WD/WN, No Apparent Distress Eye Exam: Bilateral Eye: EOMI, Normal Inspection Ears: Normal External Exam, Hearing Grossly Normal Nose: Normal Inspection Throat/Mouth: Normal Inspection, Normal Lips, Normal Voice, No Airway Compromise Head Exam: Atraumatic, Normocephalic Neck: Normal Inspection, Full Range of Motion Respiratory/Chest: No Respiratory Distress, Lungs Clear, Normal Breath Sounds, No Accessory Muscle Use Cardiovascular: Normal Peripheral Pulses, Regular Rate, Rhythm, No Edema, No Gallop, No JVD, No Murmur, No Rub GI/Abdominal: Normal Bowel Sounds, Soft, Non-Tender, No Organomegaly, No Distention, No Abnormal Bruit, No Mass Neurological: Alert, CN II-XII Intact (no facial droop), Oriented x 3, Other (Equal UE strength and sensation. Parallyzed BLEs.) Extremities: Normal Inspection, No Pedal Edema, Normal Capillary Refill Psychiatric: Normal Affect Skin Exam: Warm, Dry, Intact, Normal Color, No Rash Course - Re-Assessments/Exams Free Text/Narrative Re-Assessment/Exam: 09/05/20 06:52 As above, the patient was brought by EMS from [facility] for concern of a possible stroke. As there is no concern with her airway, she was taken directly to CT for a scan of her head. 09/05/20 07:[address] Eckert and care of the patient turned over to him at this time for change of shift. Departure - Departure Disposition: Home, Self-Care 01 Clinical Impression: Hypernatremia, Paraplegia Urinary tract infection associated with indwelling urethral catheter Qualifiers: Encounter type: initial encounter Qualified Code(s): T83.511A - Infection and inflammatory reaction due to indwelling urethral catheter, initial encounter; N39.0 - Urinary tract infection, site not specified - Discharge Information *PRESCRIPTION DRUG MONITORING PROGRAM REVIEWED*: Not Applicable *COPY OF PRESCRIPTION DRUG MONITORING REPORT IN PATIENT DANNY: Not Applicable Referrals: Geovany Matthews MD [Primary Care Provider] - Forms: ED Department Discharge Additional Instructions: Evaluation in the emergency room this morning in regards to transient weakness identified by staff this morning. Upon arrival here we could not identify any neurological deficit particularly no right sided facial weakness or arm or leg weakness. CT of the head is unchanged from previous CTs performed at this institution. As you indicated this is happened to you before. There is a infection in the urinary bladder which is common with your suprapubic catheter. However white count is normal and there is no signs of systemic signs of inf ection. No antibiotics are indicated at this time. Continue all medications as before. Sepsis Event Note (ED) - Evaluation Sepsis Screening Result: No Definite Risk <Herrera Eckert - Last Filed: 09/05/20 13:22> #1 Interpretation EKG Date: 09/05/20 Time: 07:52 Rhythm: Other (Junctional rhythm with no discernible P waves) Rate (Beats/Min): 66 [place]: Normal QRS: Other (Creased voltage in the limb and precordial leads.) ST-T: Other (T wave flattening in aVL nonspecific. Minimal ST segment elevation noted in leads II, III, aVF, V5 and V6 leads. Appears to be a repolarization abnormality.) QT: Normal EKG Interpretation Comments: Abnormal ECG Course - Vital Signs Last Recorded V/S: Last Vital Signs Temp 35.7 C L 09/05/20 06:45 Pulse 67 09/05/20 08:59 Resp 18 09/05/20 08:59 BP 132/78 09/05/20 08:59 Pulse Ox 90 L 09/05/20 08:59 - Orders/Labs/Meds Orders: Active Orders 24 hr Category Date Time Status CULTURE URINE [RM] Stat Lab 09/05/20 08:30 Received Labs: Laboratory Tests 09/05/20 09/05/20 09/05/20 Range/Units 06:57 07:43 07:43 WBC 5.15 (3.98-10.04) K/mm3 RBC 5.40 H (3.98-5.22) M/mm3 Hgb 15.2 D (11.2-15.7) gm/dl Hct 50.4 H (34.1-44.9) % MCV 93.3 (79.4-94.8) fl MCH 28.1 (25.6-32.2) pg MCHC 30.2 L (32.2-35.5) g/dl RDW Std Deviation 53.4 H (36.4-46.3) fL Plt Count 185 (182-369) K/mm3 MPV 10.6 (9.4-12.3) fl Neutrophils % (Manual) 63 H (40-60) % Band Neutrophils % 0 (0-10) % Lymphocytes % (Manual) 28 (20-40) % Atypical Lymphs % 0 % Monocytes % (Manual) 9 (2-10) % Eosinophils % (Manual) 0 L (0.7-5.8) % Basophils % (Manual) 0 L (0.1-1.2) Platelet Estimate Adequate RBC Morph Comment Normal PT (9.7-12.0) SECONDS INR APTT (21.7-31.4) SECONDS Sodium 148 H (136-145) mEq/L Potassium 4.0 (3.5-5.1) mEq/L Chloride 107 (98-107) mEq/L Carbon Dioxide 35 H (21-32) mEq/L Anion Gap 10.0 (5-15) BUN 11 (7-18) mg/dL Creatinine 0.9 (0.55-1.02) mg/dL Est Cr Clr Drug Dosing TNP Estimated GFR (MDRD) > 60 (>60) mL/min BUN/Creatinine Ratio 12.2 L (14-18) Glucose 94 (74-106) mg/dL POC Glucose 88 (70-105) mg/dL Calcium 9.2 (8.5-10.1) mg/dL Magnesium 2.0 (1.8-2.4) mg/dl Total Bilirubin 0.4 (0.2-1.0) mg/dL AST 17 (15-37) U/L ALT 28 (14-59) U/L Alkaline Phosphatase 138 H (46-116) U/L Troponin I < 0.017 (0.00-0.056) ng/mL Total Protein 7.4 (6.4-8.2) g/dl Albumin 3.3 L (3.4-5.0) g/dl Globulin 4.1 gm/dL Albumin/Globulin Ratio 0.8 L (1-2) TSH 3rd Generation 1.406 (0.358-3.74) uIU/mL Urine Color (Yellow) Urine Appearance (Clear) Urine pH (5.0-8.0) Ur Specific [place] (1.005-1.030) Urine Protein (Negative) Urine Glucose (UA) (Negative) Urine Ketones (Negative) Urine Occult Blood (Negative) Urine Nitrite (Negative) Urine Bilirubin (Negative) Urine Urobilinogen (0.2-1.0) Ur Leukocyte Esterase (Negative) Urine RBC (0-5) /hpf Urine WBC (0-5) /hpf Ur Squamous Epith Cells (0-5) /hpf Urine Bacteria (FEW) /hpf Urine Mucus (FEW) /hpf 09/05/20 09/05/20 Range/Units 07:43 08:41 WBC (3.98-10.04) K/mm3 RBC (3.98-5.22) M/mm3 Hgb (11.2-15.7) gm/dl Hct (34.1-44.9) % MCV (79.4-94.8) fl MCH (25.6-32.2) pg MCHC (32.2-35.5) g/dl RDW Std Deviation (36.4-46.3) fL Plt Count (182-369) K/mm3 MPV (9.4-12.3) fl Neutrophils % (Manual) (40-60) % Band Neutrophils % (0-10) % Lymphocytes % (Manual) (20-40) % Atypical Lymphs % % Monocytes % (Manual) (2-10) % Eosinophils % (Manual) (0.7-5.8) % Basophils % (Manual) (0.1-1.2) Platelet Estimate RBC Morph Comment PT 10.6 (9.7-12.0) SECONDS INR 0.99 APTT 29.1 (21.7-31.4) SECONDS Sodium (136-145) mEq/L Potassium (3.5-5.1) mEq/L Chloride (98-107) mEq/L Carbon Dioxide (21-32) mEq/L Anion Gap (5-15) BUN (7-18) mg/dL Creatinine (0.55-1.02) mg/dL Est Cr Clr Drug Dosing Estimated GFR (MDRD) (>60) mL/min BUN/Creatinine Ratio (14-18) Glucose (74-106) mg/dL POC Glucose (70-105) mg/dL Calcium (8.5-10.1) mg/dL Magnesium (1.8-2.4) mg/dl Total Bilirubin (0.2-1.0) mg/dL AST (15-37) U/L ALT (14-59) U/L Alkaline Phosphatase (46-116) U/L Troponin I (0.00-0.056) ng/mL Total Protein (6.4-8.2) g/dl Albumin (3.4-5.0) g/dl Globulin gm/dL Albumin/Globulin Ratio (1-2) TSH 3rd Generation (0.358-3.74) uIU/mL Urine Color Light yellow (Yellow) Urine Appearance Slt cloudy H (Clear) Urine pH 8.0 (5.0-8.0) Ur Specific [place] 1.020 (1.005-1.030) Urine Protein Trace H (Negative) Urine Glucose (UA) Negative (Negative) Urine Ketones Negative (Negative) Urine Occult Blood Negative (Negative) Urine Nitrite Positive H (Negative) Urine Bilirubin Negative (Negative) Urine Urobilinogen 1.0 (0.2-1.0) Ur Leukocyte Esterase 3+ H (Negative) Urine RBC 0-5 (0-5) /hpf Urine WBC 30-40 H (0-5) /hpf Ur Squamous Epith Cells 5-10 H (0-5) /hpf Urine Bacteria Many H (FEW) /hpf Urine Mucus Few (FEW) /hpf - Re-Assessments/Exams Free Text/Narrative Re-Assessment/Exam: 09/05/20 08:00: CT of the head has been completed without contrast. Low-density is noted within the right subcortical white matter within the frontal region low-density is noted within the upper areas of both parietal regions. 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 Ventricles along with both basal cisterns and sulci over the convexities are within normal limits for the patient's age. Lucency is noted with in the right frontal calvarium presumably due to previous bur hole no acute calvarial abnormalities otherwise seen. Visualized mastoid and visualized paranasal sinuses showed nothing acute. Slight area of mucosal thickening is noted within the left ethmoid sinus. No intracranial bleeding or mass-effect identified. 09/05/20 08:30 Hematology reveals a normal white count at 5.15. Differential reveals 63% neutrophils on the auto differential. Hemoglobin is 15.2 with hematocrit of 50.4. Platelet count is 185,000. PT is 10.6 with an INR of 0.99 PTT is 29.1 glucose is 88. 09/05/20 09:01 Chemistry reveals a slightly elevated sodium at 148 potassium 4.0 chloride 107 bicarb 35. Anion gap was 10.0 with a BUN of 11. Creatinine 0.9 glucose is 94 calcium 9.2 magnesium 2.0 liver function normal other than slightly elevated alk phosphatase at 138. Troponin I is less than 0.017 total protein 7.4 with an albumin fraction of 3.3 TSH is normal at 1.4. 09/05/20 09:16 Urinalysis is slightly cloudy with a trace of protein positive nitrates 3+ leukocyte esterase with 30-40 white blood cells per high-power field and 5-10 squamous epithelial cells with many bacteria. Urine culture will be ordered. 09/05/20 09:25 I have discussed the findings with the patient. She is feels pretty well back to normal. She is stating she has generalized shakes which is normal for her. She reports that her suprapubic catheter is changed out once monthly due to the amount of mucus shredding that occurs in her urinary tract. Clinically she does not appear to be ill from urinary tract infection. She will therefore not be treated with any antibiotics at this time. Plan will be to return her back to [facility]. Departure - Departure Time of Disposition: 09:18 Condition: Fair Sepsis Event Note (ED) - Focused Exam Vital Signs: Vital Signs Temp Pulse Resp BP Pulse Ox 09/05/20 08:59 67 18 132/78 90 L 09/05/20 08:06 63 16 124/79 91 L 09/05/20 06:45 35.7 C L 64 18 117/84 95
--- NOTE | 2020-09-05 07:46 | CT ---
Head CT Technique: Multiple axial sections through the brain were obtained. Intravenous contrast was not utilized. Comparison: Prior head CT study of 10/16/18. Findings: Low density is noted within the right subcortical white matter within the frontal region. Low density is noted within the upper areas of both parietal regions. 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 Ventricles along with basal cisterns and sulci over the convexities are within normal limits for the patient's age. Lucency is noted within the right frontal calvarium presumably due to previous johnny hole. No acute calvarial abnormality is otherwise seen. Visualized mastoid and visualized paranasal sinuses show nothing acute. Slight area of mucosal thickening is noted within the left ethmoid sinus. Impression: 1. Lucency within the right frontal region presumably due to johnny hole. 2. Low density within 3 separate areas presumably due to old infarcts. 3. Nothing acute is definitely appreciated. No change is appreciated on this study from previous head CT exam. Note: If patient's symptoms warrant further evaluation, recommend MRI. Diagnostic code #2
[2020-09-05 09:00] VITALS: BP 132/78; PULSE 67
== END 2020-09-05 11:10 | disposition home or self-care (01) ==
LOC: JD.ED 06:42
DX: T83.511A Infection and inflammatory reaction due to indwelling urethral catheter, initial encounter (principal); N39.0 Urinary tract infection, site not specified; E87.0 Hyperosmolality and hypernatremia; G82.20 Paraplegia, unspecified; E66.9 Obesity, unspecified; E03.9 Hypothyroidism, unspecified; G43.909 Migraine, unspecified, not intractable, without status migrainosus; Z88.1 Allergy status to other antibiotic agents; Z72.0 Tobacco use; Z79.899 Other long term (current) drug therapy
CPT/HCPCS: 36415; 70450; 70450-26; 80053; 81001; 82962; 83735; 84443; 84484; 85007; 85027; 85610; 85730; 87086; 87088; 87186; 93005; 93010; 99284; 99285-25

== ENCOUNTER 2021-06-22 21:25 | Emergency (ER) | payer MEDICAID ==
[2021-06-22 21:35] VITALS: BP 103/66; PULSE 79
--- NOTE | 2021-06-22 21:40 | EDM.PDOC ---
<Navi Falk - Last Filed: 06/22/21 23:07> ED HPI GENERAL MEDICAL PROBLEM - General Chief Complaint: Lower Extremity Injury/Pain Stated Complaint: [facility] Time Seen by Provider: 06/22/21 21:31 - Related Data Allergies Allergy/AdvReac Type Severity Reaction Status Date / Time cefixime [From Suprax] Allergy Mild Itching Verified 06/22/21 21:35 Home Meds: Home Meds Alpha Lipoic Acid 300 mg PO BEDTIME 11/17/18 [History] Baclofen 20 mg PO BID PRN 11/17/18 [History] Multivitamin [Daily Multiple Vitamin] 1 tab PO DAILY 11/17/18 [History] Naproxen Sodium [Aleve] 220 - 440 mg PO Q8H PRN 11/17/18 [History] Ondansetron [Zofran ODT] 4 mg PO TID PRN 11/17/18 [History] SUMAtriptan succinate [Imitrex] 100 mg PO BID PRN 11/17/18 [History] Trolamine Salicylate/Aloe Vera [Aspercreme 10% Cream] 1 applic TOP QID PRN 11/17/18 [History] Naloxone HCl [Narcan] 4 mg DEMETRI ASDIRECTED PRN 01/18/19 [History] oxyCODONE 5 mg PO Q8H PRN #30 tablet 01/22/19 [Rx] Albuterol Sulfate [Albuterol Sulfate Hfa] 2 puff INH Q6HR PRN 03/25/19 [History] Sodium Chloride/Aloe Vera [[place] Saline Nasal Gel Odin] 1 applic NASBOTH TID PRN 03/25/19 [History] Acetaminophen [Tylenol Extra Strength] 500 mg PO BEDTIME 06/10/19 [History] Menthol [Biofreeze] 1 applic TOP Q4H PRN 06/10/19 [History] Pregabalin [Lyrica] 150 mg PO TID 06/10/19 [History] Azelastine/Fluticasone [Dymista Nasal Odin] 23 gm NS BID 06/22/21 [History] Biotin 10 mg PO DAILY 06/22/21 [History] Calcium Carbonate/Simethicone [[place] Heartburn+Gas] 2 tab PO Q4H PRN 06/22/21 [History] Camphor/Menthol [[place] Lotion] 222 ml TP ASDIRECTED PRN 06/22/21 [History] Cholecalciferol (Vitamin D3) [Vitamin D3] 1,000 unit PO DAILY 06/22/21 [History] Cranberry Fruit [Cranberry] 450 mg PO DAILY 06/22/21 [History] Cranberry/B.coagulan/C/Calcium [Cranberry-Probiotic] 2 each PO DAILY 06/22/21 [History] DULoxetine HCl [Duloxetine HCl] 60 mg PO DAILY 06/22/21 [History] Thelma 500 mg PO DAILY 06/22/21 [History] Lactobacillus Acidophilus [Acidophilus Probiotic] 1 each PO DAILY 06/22/21 [History] Levothyroxine Sodium [Levothyroxine] 137 mcg PO DAILY 06/22/21 [History] Lidocaine 5% [Lidoderm 5%] 1 patch TOP DAILY 06/22/21 [History] Mag Hydrox/Aluminum Hyd/Simeth [[place] Liquid] 30 ml PO Q4H PRN 06/22/21 [History] Menthol [[place]] 7.5 mg MM ASDIRECTED PRN 06/22/21 [History] Methenamine Hippurate [Hiprex] 1 gm PO BID 06/22/21 [History] Mirtazapine 30 mg PO BEDTIME 06/22/21 [History] Na Phos,M-B/Na Phos,DI-B [Fleet Enema] 118 ml RC ASDIRECTED PRN 06/22/21 [History] Tiotropium [Spiriva] 18 mcg INH DAILY 06/22/21 [History] guaiFENesin [Mucinex] 600 mg PO BID PRN 06/22/21 [History] tiZANidine [Zanaflex] 4 mg PO Q8H 06/22/21 [History] Budesonide/Formoterol [Symbicort 160-4.5 MCG] 2 puff INH BID 06/23/21 [History] Diclofenac Sodium [Voltaren 1% Gel] 1 g TOP BID 06/23/21 [History] Polyvinyl Alcohol/Povidone/Pf [Refresh Classic Eye Drops] 1 each OP TID PRN 06/23/21 [History] #1 Interpretation EKG Date: 06/22/21 Time: 22:57 Rhythm: NSR Rate (Beats/Min): 84 [place]: Normal P-Wave: Present QRS: Normal ST-T: Normal QT: Prolonged (QTc 549 ms) Comparison: Change From Previous EKG (QTc prolongation new since 09/05/2020) Departure - Departure Disposition: DC/[facility] to [facility] Clinical Impression: Closed fracture of femur Closed fracture of proximal end of left femur Qualifiers: Encounter type: initial encounter Qualified Code(s): S72.002A - Fracture of unspecified part of neck of left femur, initial encounter for closed fracture - Discharge Information Instructions: Femoral Shaft Fracture Referrals: PCP,None [Primary Care Provider] - Forms: ED Department Discharge Additional Instructions: Evaluation in the emergency room today in regards to injury to the left proximal femur below the hip that occurred last evening while doing stretching exercises. X-rays confirm a oblique fracture in the shaft of the proximal left femur which does not enter the trochanter or the true hip joint. CT scan of the left hip and femur were carried out this morning to help clarify that there was no extension of the fracture into the intertrochanteric process of the femur and none was found. There is normal anatomical alignment of the fracture at this time and no operative intervention is deemed necessary by orthopedic surgeon Dr. Pepper. The limb is to be immobilized continuously in an adductor splint until the fracture is healed which will take a minimum of 8 weeks . Patient is to see Dr. Pepper orthopedic surgeon in clinic in 3 weeks time. Please phone his office to arrange an appointment. Office number is [phone]. Continue all medications as previously prescribed. <Herrera Eckert - Last Filed: 06/23/21 12:42> Course - Re-Assessments/Exams Free Text/Narrative Re-Assessment/Exam: 06/23/21 09:30 a bed has now become available in our hospital for this patient. I therefore did speak with orthopedic surgeon Dr. Pepper and he has looked at the x-rays. I agree with him that there is a subtrochanteric fracture of the proximal femur with an oblique presentation with good alignment. Since the patient is paraplegic and nonweightbearing she could essentially be treated nonsurgically if the trochanter is not involved in the fracture. He recommends a CT of the hip to be done and I will order this. 06/23/21 11:07 CT of the left hip and proximal femur has been completed. Fracture does not enter the trochanter and Dr. Pepper feels that the fracture through the proximal femur is also a stable fracture and no operative intervention is indicated at this time. He suggest we place her in an abductor hip splint to help maintain position of her fracture and he will see her in the clinic in 3 weeks time. Departure - Departure Time of Disposition: 12:42 Condition: Fair - Discharge Information *PRESCRIPTION DRUG MONITORING PROGRAM REVIEWED*: No *COPY OF PRESCRIPTION DRUG MONITORING REPORT IN PATIENT DANNY: No <Tami Nair - Last Filed: 06/30/21 22:12> ED HPI GENERAL MEDICAL PROBLEM - General Source of Information: Reports: Patient, Assisted Records, RN Notes Reviewed History Limitations: Reports: No Limitations - History of Present Illness INITIAL COMMENTS - FREE TEXT/NARRATIVE: Patient is a 56-year-old female presenting to the emergency department from [facility] with concerns of possible left hip dislocation. She is paraplegic and has no feeling from the waist down. They were putting her crosslegged to help with spasms of her legs which is their normal practice and heard a pop. She has no history of hip dislocations. She is otherwise feeling well. Past Medical History HEENT History: Reports: None, Other (See Below) Other HEENT History: nasal congestion Cardiovascular History: Reports: Hypertension Respiratory History: Reports: Intubation, Previous Other Respiratory History: chronic respiratory failure with hypoxia Gastrointestinal History: Reports: Chronic Constipation, Other (See Below) Other Gastrointestinal History: nausea Genitourinary History: Reports: Neurogenic Bladder Other Genitourinary History: suprapubic catheter, acute kidney injury, chronic UTI. 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 Most recent back surgery was in March of 2015. postlaminectomy syndrome; cramps; spasms'. 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 radiculopathy; restless leg syndrome Psychiatric History: Reports: Addiction, Anxiety, Depression, Other (See Below) Other Psychiatric History: opioid dependence; insomnia Endocrine/Metabolic History: Reports: Hypothyroidism, Obesity/BMI 30+ Hematologic History: Reports: None Immunologic History: Reports: None Oncologic (Cancer) History: Reports: None Dermatologic History: Reports: Other (See Below) Other Dermatologic History: pressure ulcer to buttocks - Infectious Disease History Infectious Disease History: Reports: Chicken Pox, Measles, MRSA Other Infectious Disease History: hx mrsa in urine - Past Surgical History Head Surgeries/Procedures: Reports: Other (See Below) HEENT Surgical History: Reports: Oral Surgery, Tonsillectomy Other HEENT Surgeries/Procedures: recurrent oral aphthae Cardiovascular Surgical History: Reports: None Respiratory Surgical History: Reports: None GI Surgical History: Reports: None Female Surgical History: Reports: Hysterectomy, Suprapubic Catheter Placement Endocrine Surgical History: Reports: Thyroidectomy Neurological Surgical History: Reports: Lumbar Spine Other Neurological Surgeries/Procedures: brain biopsy two years ago while intubated d/t "white spots on the brain" and "fluid was drained from brain" Musculoskeletal Surgical History: Reports: Other (See Below) Other Musculoskeletal Surgeries/Procedures:: 3 back surgeries. Most recent back surgery was in March of 2015. Oncologic Surgical History: Reports: None Dermatological Surgical History: Reports: None Social & Family History - Family History Family Medical History: No Pertinent Family History - Tobacco Use Tobacco Use Status *Q: Current Every Day Tobacco User Years of Tobacco use: 40 Packs/Tins Daily: 0.5 - Caffeine Use Caffeine Use: Reports: None - Recreational Drug Use Recreational Drug Use: No - Living Situation & Occupation Living situation: Reports: , Extended Care Facility ([facility]) Occupation: Disabled Review of Systems - Review of Systems Review Of Systems: Comprehensive ROS is negative, except as noted in HPI. ED EXAM, GENERAL - Physical Exam Exam: See Below Exam Limited By: No Limitations General Appearance: Alert, WD/WN, No Apparent Distress Respiratory/Chest: No Respiratory Distress, Lungs Clear, Normal Breath Sounds, No Accessory Muscle Use, Chest Non-Tender Cardiovascular: Normal Peripheral Pulses, Regular Rate, Rhythm, No Edema, No Gallop, No JVD, No Murmur, No Rub GI/Abdominal: Normal Bowel Sounds, Soft, Non-Tender, No Organomegaly, No Distention, No Abnormal Bruit, No Mass Extremities: Normal Inspection, Normal Range of Motion, Non-Tender, No Pedal Edema, Normal Capillary Refill, Other (Palpation of the femoral head feels to be in the socket. Smooth passive range of motion of the extremity.) Neurological: Alert, Oriented, Sensory/Motor Deficit (No motor function or sensation from the waist down.) Psychiatric: Normal Affect, Normal Mood Skin Exam: Warm, Dry, Intact, Normal Color, No Rash Course - Vital Signs Last Recorded V/S: Last Vital Signs Temp 97.5 F 06/22/21 21:32 Pulse 79 06/22/21 21:32 Resp 20 06/22/21 21:32 BP 103/66 06/22/21 21:32 Pulse Ox 90 L 06/22/21 21:32 - Orders/Labs/Meds Labs: Laboratory Tests 06/22/21 06/22/21 06/22/21 Range/Units 22:45 22:56 22:56 WBC 11.91 H (3.98-10.04) K/mm3 RBC 5.64 H (3.98-5.22) M/mm3 Hgb 16.5 H (11.2-15.7) gm/dl Hct 53.1 H (34.1-44.9) % MCV 94.1 (79.4-94.8) fl MCH 29.3 (25.6-32.2) pg MCHC 31.1 L (32.2-35.5) g/dl RDW Std Deviation 57.7 H (36.4-46.3) fL Plt Count 159 L (182-369) K/mm3 MPV 10.0 (9.4-12.3) fl Neut % (Auto) 72.0 H (34.0-71.1) % Lymph % (Auto) 19.5 (19.3-51.7) % [place] % (Auto) 7.1 (4.7-12.5) % Eos % (Auto) 0.2 L (0.7-5.8) Baso % (Auto) 0.3 (0.1-1.2) % Neut # (Auto) 8.59 H (1.56-6.13) K/mm3 Lymph # (Auto) 2.32 (1.18-3.74) K/mm3 [place] # (Auto) 0.84 H (0.24-0.36) K/mm3 Eos # (Auto) 0.02 L (0.04-0.36) K/mm3 Baso # (Auto) 0.03 (0.01-0.08) K/mm3 Sodium 143 (136-145) mEq/L Potassium 3.9 (3.5-5.1) mEq/L Chloride 103 (98-107) mEq/L Carbon Dioxide 29 (21-32) mEq/L Anion Gap 14.9 (5-15) BUN 14 (7-18) mg/dL Creatinine 0.9 (0.55-1.02) mg/dL Est Cr Clr Drug Dosing 63.78 mL/min Estimated GFR (MDRD) > 60 (>60) mL/min BUN/Creatinine Ratio 15.6 (14-18) Glucose 90 (70-99) mg/dL Calcium 8.8 (8.5-10.1) mg/dL Total Bilirubin 0.3 (0.2-1.0) mg/dL AST 24 (15-37) U/L ALT 28 (14-59) U/L Alkaline Phosphatase 148 H (46-116) U/L Total Protein 6.7 (6.4-8.2) g/dl Albumin 3.4 (3.4-5.0) g/dl Globulin 3.3 gm/dL Albumin/Globulin Ratio 1.0 (1-2) SARS-CoV-2 RNA (ROSENDO) Negative (NEGATIVE) Meds: Medications Discontinued Medications Generic Name Dose Route Start Last Admin Trade Name Freq PRN Reason Stop Dose Admin Baclofen 20 mg 06/23/21 09:00 06/23/21 09:16 Baclofen 10 Mg Tab PO 20 mg TID SHAWNA Administration Duloxetine HCl 60 mg 06/23/21 09:00 06/23/21 09:15 Duloxetine 30 Mg Cap PO 60 mg DAILY SHAWNA Administration Levothyroxine Sodium 125 mcg 06/23/21 09:00 06/23/21 09:15 Levothyroxine 125 Mcg Tab PO 125 mcg DAILY@0700 SHAWNA Administration Mirtazapine 30 mg 06/22/21 22:16 06/22/21 22:36 Mirtazapine 30 Mg Tab PO 06/22/21 22:17 30 mg ONETIME ONE Administration Oxycodone HCl 5 mg 06/23/21 05:26 06/23/21 05:34 Oxycodone 5 Mg Tab PO 06/23/21 05:27 5 mg ONETIME ONE Administration Pregabalin 25 mg 06/22/21 22:15 06/22/21 22:36 Pregabalin 25 Mg Cap PO 06/22/21 22:16 25 mg ONETIME ONE Administration Pregabalin 150 mg 06/22/21 22:14 06/22/21 22:36 Pregabalin 75 Mg Cap PO 06/22/21 22:15 150 mg ONETIME ONE Administration Pregabalin 150 mg 06/23/21 09:00 06/23/21 09:15 Pregabalin 75 Mg Cap PO 150 mg TID SHAWNA Administration Sodium Chloride 10 ml 06/22/21 22:13 06/22/21 22:48 Sodium Chloride 0.9% 10 Ml Syringe FLUSH 10 ml ASDIRECTED PRN Administration Keep Vein Open Tiotropium [place] 0 gm 06/23/21 09:00 Tiotropium [place] 4 Gm Inhalation Odin (2.5mcg/1 Dose; 10 Doses) INH DAILY SHAWNA Tizanidine HCl 4 mg 06/22/21 22:16 06/22/21 22:36 Tizanidine 4 Mg Tab PO 06/22/21 22:17 4 mg ONETIME ONE Administration Tizanidine HCl 4 mg 06/23/21 09:00 06/23/21 09:16 Tizanidine 4 Mg Tab PO 4 mg Q8H SHAWNA Administration - Re-Assessments/Exams Free Text/Narrative Re-Assessment/Exam: Is a 56-year-old female presenting to the emergency department from [facility] with concerns of possible left hip dislocation. They were doing leg exercises to help with muscle spasms when they heard a pop. Patient has no sensation from T6 down. On exam, there is no lateral rotation and the head of the femur seems to be appropriately seated in the acetabulum. Circulation is intact distally. She has no motor function or sensation of the limb at baseline. I have ordered x-rays of the left hip. 06/22/21 22:09 X-ray of the left hip shows a nondisplaced fracture of the proximal diaphysis of the femur. Unfortunately there are no beds available at this time in our facility or at any of the facilities throughout the [facility], however there is a possibility of some discharges tomorrow. We will plan for the patient to stay in the ER through the evening and decide disposition tomorrow. I will order blood work, EKG, chest x-ray, and Covid testing for preop purposes. She will receive her bedtime medications which are her Lyrica, tizanidine, and mirtazapine and that we will plan for n.p.o. after midnight in case there is a possibility of repair tomorrow. Sepsis Event Note (ED) - Evaluation Sepsis Screening Result: No Definite Risk
[2021-06-22] MEDS ORDERED: Sodium Chloride 0.9% 10 ML Syringe FLUSH PRN (22:13)
[2021-06-22] MEDS ORDERED: Pregabalin 75 MG Cap PO ONE (22:14)
[2021-06-22] MEDS ORDERED: Pregabalin 25 MG Cap PO ONE (22:15)
[2021-06-22] MEDS ORDERED: tiZANidine 4 MG Tab PO ONE (22:16)
[2021-06-22] MEDS ORDERED: Mirtazapine 30 MG Tab PO ONE (22:16)
[2021-06-23] MEDS ORDERED: oxyCODONE 5 MG Tab PO ONE (05:26)
--- NOTE | 2021-06-23 05:58 | CR ---
Left hip: AP and crosstable lateral views of the left hip were obtained. Comparison: No prior left hip study is available. Fracture is seen below the intertrochanteric region within the proximal left femur. Fracture is oblique in alignment. Mild joint space narrowing is seen within the left hip. Prior lumbar spine surgery is noted. Impression: 1. Fracture below the intertrochanteric region within the proximal left femur which is oblique in alignment and appears fairly anatomic. 2. Joint space narrowing within the left hip. 3. Prior lumbar spine surgery. Diagnostic code #3
[2021-06-23] MEDS ORDERED: Levothyroxine 125 MCG Tab PO SCH (09:00)
[2021-06-23] MEDS ORDERED: Baclofen 10 MG Tab PO SCH (09:00)
[2021-06-23] MEDS ORDERED: DULoxetine 30 MG Cap PO SCH (09:00)
[2021-06-23] MEDS ORDERED: Pregabalin 75 MG Cap PO SCH (09:00)
[2021-06-23] MEDS ORDERED: Tiotropium Bromide 4 GM Inhalation Spray (2.5mcg/1 dose; 10 doses) INH SCH (09:00)
[2021-06-23] MEDS ORDERED: tiZANidine 4 MG Tab PO SCH (09:00)
--- NOTE | 2021-06-23 16:53 | CT ---
CT left hip Technique: Multiple axial sections through the left hip were obtained. Reconstructed coronal and sagittal images were obtained. Comparison: Prior left hip radiographic study of 06/22/21. Findings: Mild motion artifact is present. There is a fracture being seen which starts anteriorly within the cortex within the subtrochanteric region and then extends more distally in an oblique fashion to involve the proximal diaphysis. Alignment remains close to anatomic. Joint space narrowing is noted superiorly. Suprapubic catheter is seen within the bladder. Mild increased stool is seen within the rectum and within the sigmoid colon. Impression: 1. Nondisplaced fracture as described above. 2. Mild degenerative change within the left hip. 3. Other findings as noted above. Diagnostic code #3 MTDD
--- NOTE | 2021-06-24 15:04 | CR ---
Chest: Portable supine view of the chest was obtained. Comparison: Prior chest x-ray of 06/10/19. Heart is slightly enlarged. Thick linear density is seen within the right upper lung most likely representing an area of atelectasis. Lungs otherwise are clear. Bony structures show nothing acute. Impression: 1. Presumed area of atelectasis within the right upper lung. 2. Heart size is slightly enlarged. 3. Nothing acute is otherwise seen. Diagnostic code #3
== END 2021-06-23 13:15 ==
LOC: JD.ED 21:25
DX: S72.002A Fracture of unspecified part of neck of left femur, initial encounter for closed fracture (principal); I10 Essential (primary) hypertension; E03.9 Hypothyroidism, unspecified; E66.9 Obesity, unspecified; Z68.29 Body mass index [BMI] 29.0-29.9, adult; Z88.1 Allergy status to other antibiotic agents; Z79.899 Other long term (current) drug therapy; Z72.0 Tobacco use; Z20.822 Contact with and (suspected) exposure to COVID-19; X58.XXXA Exposure to other specified factors, initial encounter
CPT/HCPCS: 36415; 71045; 73502; 73700; 80053; 85025; 87635; 93005; 99285; A9270; 93010; U0002

== ENCOUNTER 2021-07-01 16:35 | Emergency (ER) | payer MEDICAID ==
[2021-07-01 16:46] VITALS: BP 100/76; PULSE 83
--- NOTE | 2021-07-01 16:53 | EDM.PDOC ---
ED HPI GENERAL MEDICAL PROBLEM - General Chief Complaint: Lower Extremity Injury/Pain Stated Complaint: CIRO AMB Time Seen by Provider: 07/01/21 16:38 Source of Information: Reports: Patient, Custodial Records, RN Notes Reviewed History Limitations: Reports: No Limitations - History of Present Illness INITIAL COMMENTS - FREE TEXT/NARRATIVE: Patient is a 56-year-old female presenting to the emergency department from a [facility] with complaints of increased pain and possible deformity to known left proximal femoral fracture. She was diagnosed with sta ble proximal femoral fracture on June 22. She states it was initially uncomfortable but the pain is been progressively worsening. She is paraplegic has decreased sensation from the waist down as well as no motor function. She has been wearing an abductor brace at all times since the time of the injury. Nursing staff also felt that her left leg was shorter than the right. Denies any recent falls or possible reinjuries to the area. Left Hip Pain Score (Numeric/FACES): 7 - Related Data Allergies Allergy/AdvReac Type Severity Reaction Status Date / Time cefixime [From Suprax] Allergy Mild Itching Verified 07/01/21 16:47 Home Meds: Home Meds Alpha Lipoic Acid 300 mg PO BEDTIME 11/17/18 [History] Baclofen 20 mg PO BID PRN 11/17/18 [History] Multivitamin [Daily Multiple Vitamin] 1 tab PO DAILY 11/17/18 [History] Naproxen Sodium [Aleve] 220 - 440 mg PO Q8H PRN 11/17/18 [History] Ondansetron [Zofran ODT] 4 mg PO TID PRN 11/17/18 [History] SUMAtriptan succinate [Imitrex] 100 mg PO BID PRN 11/17/18 [History] Trolamine Salicylate/Aloe Vera [Aspercreme 10% Cream] 1 applic TOP QID PRN 11/17/18 [History] Naloxone HCl [Narcan] 4 mg DEMETRI ASDIRECTED PRN 01/18/19 [History] oxyCODONE 5 mg PO Q8H PRN #30 tablet 01/22/19 [Rx] Albuterol Sulfate [Albuterol Sulfate Hfa] 2 puff INH Q6HR PRN 03/25/19 [History] Sodium Chloride/Aloe Vera [[place] Saline Nasal Gel [place]] 1 applic NASBOTH TID PRN 03/25/19 [History] Acetaminophen [Tylenol Extra Strength] 500 mg PO BEDTIME 06/10/19 [History] Menthol [Biofreeze] 1 applic TOP Q4H PRN 06/10/19 [History] Pregabalin [Lyrica] 150 mg PO TID 06/10/19 [History] Azelastine/Fluticasone [Dymista Nasal [place]] 23 gm NS BID 06/22/21 [History] Biotin 10 mg PO DAILY 06/22/21 [History] Calcium Carbonate/Simethicone [[place] Heartburn+Gas] 2 tab PO Q4H PRN 06/22/21 [History] Camphor/Menthol [Sarna Lotion] 222 ml TP ASDIRECTED PRN 06/22/21 [History] Cholecalciferol (Vitamin D3) [Vitamin D3] 1,000 unit PO DAILY 06/22/21 [History] Cranberry Fruit [Cranberry] 450 mg PO DAILY 06/22/21 [History] Cranberry/B.coagulan/C/Calcium [Cranberry-Probiotic] 2 each PO DAILY 06/22/21 [History] DULoxetine HCl [Duloxetine HCl] 60 mg PO DAILY 06/22/21 [History] Thelma 500 mg PO DAILY 06/22/21 [History] Lactobacillus Acidophilus [Acidophilus Probiotic] 1 each PO DAILY 06/22/21 [History] Levothyroxine Sodium [Levothyroxine] 137 mcg PO DAILY 06/22/21 [History] Lidocaine 5% [Lidoderm 5%] 1 patch TOP DAILY 06/22/21 [History] Mag Hydrox/Aluminum Hyd/Simeth [[place] Liquid] 30 ml PO Q4H PRN 06/22/21 [History] Menthol [D[place]] 7.5 mg MM ASDIRECTED PRN 06/22/21 [History] Methenamine Hippurate [Hiprex] 1 gm PO BID 06/22/21 [History] Mirtazapine 30 mg PO BEDTIME 06/22/21 [History] Na Phos,M-B/Na Phos,DI-B [Fleet Enema] 118 ml RC ASDIRECTED PRN 06/22/21 [History] Tiotropium [Spiriva] 18 mcg INH DAILY 06/22/21 [History] guaiFENesin [Mucinex] 600 mg PO BID PRN 06/22/21 [History] tiZANidine [Zanaflex] 4 mg PO Q8H 06/22/21 [History] Budesonide/Formoterol [Symbicort 160-4.5 MCG] 2 puff INH BID 06/23/21 [History] Diclofenac Sodium [Voltaren 1% Gel] 1 g TOP BID 06/23/21 [History] Polyvinyl Alcohol/Povidone/Pf [Refresh Classic Eye Drops] 1 each OP TID PRN 06/23/21 [History] Past Medical History HEENT History: Reports: Other (See Below) Other HEENT History: nasal congestion Cardiovascular History: Reports: Hypertension Respiratory History: Reports: Intubation, Previous Other Respiratory History: chronic respiratory failure with hypoxia Gastrointestinal History: Reports: Chronic Constipation, Other (See Below) Other Gastrointestinal History: nausea Genitourinary History: Reports: Neurogenic Bladder Other Genitourinary History: suprapubic catheter, acute kidney injury, chronic UTI. 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 Most recent back surgery was in March of 2015. postlaminectomy syndrome; cramps; spasms'. 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 radiculopathy; restless leg syndrome Psychiatric History: Reports: Addiction, Anxiety, Depression, Other (See Below) Other Psychiatric History: opioid dependence; insomnia Endocrine/Metabolic History: Reports: Hypothyroidism, Obesity/BMI 30+ Hematologic History: Reports: None Immunologic History: Reports: None Oncologic (Cancer) History: Reports: None Dermatologic History: Reports: Other (See Below) Other Dermatologic History: pressure ulcer to buttocks - Infectious Disease History Infectious Disease History: Reports: Chicken Pox, Measles, MRSA Other Infectious Disease History: hx mrsa in urine - Past Surgical History HEENT Surgical History: Reports: Oral Surgery, Tonsillectomy Other HEENT Surgeries/Procedures: recurrent oral aphthae Female Surgical History: Reports: Hysterectomy, Suprapubic Catheter Placement Endocrine Surgical History: Reports: Thyroidectomy Neurological Surgical History: Reports: Lumbar Spine Other Neurological Surgeries/Procedures: brain biopsy two years ago while intubated d/t "white spots on the brain" and "fluid was drained from brain" Musculoskeletal Surgical History: Reports: Other (See Below) Other Musculoskeletal Surgeries/Procedures:: 3 back surgeries. Most recent back surgery was in March of 2015. Social & Family History - Family History Family Medical History: No Pertinent Family History - Tobacco Use Tobacco Use Status *Q: Current Every Day Tobacco User Years of Tobacco use: 30 Packs/Tins Daily: 0.5 - Caffeine Use Caffeine Use: Reports: Coffee - Recreational Drug Use Recreational Drug Use: No - Living Situation & Occupation Living situation: Reports: , Extended Care Facility ([facility]) Occupation: Disabled Review of Systems - Review of Systems Review Of Systems: Comprehensive ROS is negative, except as noted in HPI. ED EXAM, GENERAL - Physical Exam Exam: See Below General Appearance: Alert, WD/WN, No Apparent Distress Respiratory/Chest: No Respiratory Distress, Lungs Clear, Normal Breath Sounds, No Accessory Muscle Use, Chest Non-Tender Cardiovascular: Normal Peripheral Pulses, Regular Rate, Rhythm, No Edema, No Gallop, No JVD, No Murmur, No Rub Extremities: Other (Palpable spasm of the left hamstring muscle. Slight anterior deformity of the thigh. Circulation intact distal to the injury. Patient has decreased sensation and motor function at baseline.) Neurological: Alert, Oriented, Normal Cognition Psychiatric: Normal Affect, Normal Mood Skin Exam: Warm, Dry, Intact, Normal Color, No Rash Course - Vital Signs Last Recorded V/S: Last Vital Signs Temp 98.9 F 07/01/21 16:39 Pulse 83 07/01/21 16:39 Resp 16 07/01/21 16:39 BP 100/76 07/01/21 16:39 Pulse Ox 92 L 07/01/21 16:39 - Orders/Labs/Meds Meds: Medications Discontinued Medications Generic Name Dose Route Start Last Admin Trade Name Freq PRN Reason Stop Dose Admin Oxycodone/Acetaminophen 2 tab 07/01/21 18:15 07/01/21 18:42 Acetaminophen/Oxycodone 325-5 Mg Tab PO 07/01/21 18:16 2 tab ONETIME ONE Administration - Re-Assessments/Exams Free Text/Narrative Re-Assessment/Exam: Patient is a 56-year-old female presenting to the emergency department from [facility] with concerns of possible displacement of proximal femoral fracture. On exam, there is notable muscle spasm of the left hamstring muscle. Circulation is intact distally. Patient has decreased sensation and no motor function of lower extremities due to history of paraplegia. I ordered x- rays of the left hip. 07/01/21 18:12 X-ray of the left hip shows worsening angulation of the proximal femoral fracture. Fortunately we do not have orthopedics on until Tuesday. I did call and speak with the orthopedist on-call at [facility] in [place], Dr. Mcgowan. They have no beds available in their facility. He recommended a long knee immobilizer to the extremity as well as continued use of the abductor pillow and pain management. Patient is currently only on 5 mg of oxycodone every 8 hours and has been on this for an extended period of time. She reports the pain has been worsening for last 4 to 5 days. She first noticed the slight deformity of the thigh this morning but did not notice any difference in the pain at that time. Plan will be to DC oxycodone and bedtime Tylenol and start her on Percocet 1-2 tabs every 4 hours as needed for pain. Patient is taking Zanaflex 4 mg every 8 hours, therefore she cannot take the Percocet within 2 hours of taking this medication. I did speak with the director of veterans affairs at [facility] and she verbalized that patient will sometimes skip her Zanaflex in order to take her pain medication. This likely is contributing to increased muscle spasms with may be the cause of the angulation. Discussed with patient that is important for her to take her Zanaflex as prescribed as this will help reduce muscle spasms in this area. We will send [facility] prescriptions for Percocet 1-2 tabs every 4 hours as needed for pain but not within 2 hours of taking the Zanaflex. Oxycodone and at bedtime Tylenol should be discontinued. Knee immobilizer was applied high on the leg and the femur is well stabilized. Wedge in place. If pain should worsen or is not being managed with these medications, she should return to ER. She is in agreement with this plan. Discharge instructions as document. Departure - Departure Time of Disposition: 18:45 Disposition: Home, Self-Care 01 Condition: Good Clinical Impression: Closed fracture of proximal end of left femur Qualifiers: Encounter type: initial encounter Qualified Code(s): S72.002A - Fracture of unspecified part of neck of left femur, initial encounter for closed fracture - Discharge Information *PRESCRIPTION DRUG MONITORING PROGRAM REVIEWED*: Yes *COPY OF PRESCRIPTION DRUG MONITORING REPORT IN PATIENT DANNY: No Instructions: Femoral Shaft Fracture Referrals: Geovany Matthews MD [Primary Care Provider] - Angus Pepper MD [Physician] - Forms: ED Department Discharge Additional Instructions: Hold current order for as needed oxycodone and bedtime Tylenol. Use Percocet 1-2 tabs every 4 hours as needed for pain, but not within 2 hours of taking the Zanaflex. The knee immobilizer should stay in place high on the leg at all times. Wedge should also stay in place. Schedule follow-up appointment with Dr. Pepper on Tuesday. If pain is not well managed, or she experiences any other difficulties, she should return to the emergency department. Sepsis Event Note (ED) - Evaluation Sepsis Screening Result: No Definite Risk
--- NOTE | 2021-07-01 17:36 | CR ---
Left hip: Frog-leg lateral and crosstable lateral views were obtained of the left hip. Comparison: Prior left hips radiographic study of 06/22/[address] study of 06/23/21. Fracture is noted within the proximal humerus. This is noted on prior study but currently shows significant angulation on current exam. Joint space narrowing is seen within the superior hip. Prior lumbar spine surgery is seen. Electrostimulating device is noted. Impression: 1. Increased angulation of previous proximal humeral fracture. 2. Stable degenerative change within the left hip. 3. Other findings as noted above which are also stable. Diagnostic code #3
[2021-07-01] MEDS ORDERED: Acetaminophen/oxyCODONE 325-5 MG Tab PO ONE (18:15)
== END 2021-07-01 19:30 | disposition home or self-care (01) ==
LOC: JD.ED 16:35
DX: S72.002A Fracture of unspecified part of neck of left femur, initial encounter for closed fracture (principal); I10 Essential (primary) hypertension; E03.9 Hypothyroidism, unspecified; E66.9 Obesity, unspecified; Z68.30 Body mass index [BMI] 30.0-30.9, adult; Z88.1 Allergy status to other antibiotic agents; Z79.899 Other long term (current) drug therapy; Z72.0 Tobacco use; X58.XXXA Exposure to other specified factors, initial encounter
CPT/HCPCS: 73502; 99283; A9270

== ENCOUNTER 2022-01-29 08:05 | Inpatient (IN) | payer MEDICAID ==
[2022-01-29] MEDS: Lactated Ringers 1,000 ML IV SCH ×2 (10:50→12:17)
[2022-01-29] MEDS ORDERED: Levofloxacin/Dextrose 5%-Water 750 MG in Premix Bag 1 BAG IV ONE (12:06)
[2022-01-29] MEDS ORDERED: Lactated Ringers 1,000 ML IV SCH (12:15)
[2022-01-29 12:20] LABS: CORONAVIRUS COVID-19 NAA NEGATIVE (NEGATIVE)
[2022-01-29] MEDS ORDERED: Acetaminophen/oxyCODONE 325-5 MG Tab PO ONE (15:10)
[2022-01-29] MEDS ORDERED: Albuterol/Ipratropium 3.0-0.5 MG/3 ML Neb Soln NEB PRN ×2 (15:10→16:21)
[2022-01-29] MEDS ORDERED: Furosemide 40 MG/4 ML VIAL IVPUSH ONE (15:12)
[2022-01-29] MEDS ORDERED: methylPREDNISolone Sodium Succinate 125 MG/2 ML SDV IVPUSH ONE (15:35)
[2022-01-29] MEDS ORDERED: HYDROmorphone 0.5 MG/0.5 ML Syringe IVPUSH PRN (16:21)
[2022-01-29] MEDS ORDERED: Acetaminophen 325 MG Tab PO PRN (16:21)
[2022-01-29] MEDS ORDERED: Ondansetron 4 MG/2 ML SDV IV PRN (16:21)
[2022-01-29] MEDS: Dextrose 5%-0.9% NaCl with KCl 1,000 ML IV SCH (17:04)
[2022-01-29] MEDS ORDERED: Baclofen 10 MG Tab PO PRN (17:15)
[2022-01-29] MEDS: Enoxaparin 40 MG/0.4 ML Syringe SUBCUT SCH (17:39)
[2022-01-29] MEDS ORDERED: Piperacillin/Tazobactam 4.5 GM in Sodium Chloride 0.9% 100 ML IV ONE (18:00)
[2022-01-29] MEDS: Pantoprazole 40 MG Vial IVPUSH SCH (18:38)
[2022-01-29] MEDS: Albuterol/Ipratropium 3.0-0.5 MG/3 ML Neb Soln NEB SCH (20:55)
[2022-01-29] MEDS: Pregabalin 25 MG Cap PO SCH (21:29)
[2022-01-29] MEDS: Pregabalin 75 MG Cap PO SCH (21:29)
[2022-01-29] MEDS: methylPREDNISolone Sodium Succinate 40 MG/1 ML SDV IVPUSH SCH (23:17)
[2022-01-30] MEDS: oxyCODONE 5 MG Tab PO PRN ×4 (01:39→20:45)
[2022-01-30] MEDS: Dextrose 5%-0.9% NaCl with KCl 1,000 ML IV SCH ×2 (01:42→09:40)
[2022-01-30] MEDS: Piperacillin/Tazobactam 4.5 GM in Sodium Chloride 0.9% 100 ML IV SCH ×3 (01:45→17:39)
[2022-01-30] MEDS: Levothyroxine 25 MCG Tab PO SCH (05:59)
[2022-01-30] MEDS: methylPREDNISolone Sodium Succinate 40 MG/1 ML SDV IVPUSH SCH ×3 (05:59→21:54)
[2022-01-30] MEDS: Levothyroxine 112 MCG Tab PO SCH (05:59)
[2022-01-30] MEDS ORDERED: Lidocaine 4% 1 each Patch TOP SCH (08:00)
[2022-01-30] MEDS: Albuterol/Ipratropium 3.0-0.5 MG/3 ML Neb Soln NEB SCH ×4 (08:47→20:15)
[2022-01-30] MEDS: Pregabalin 25 MG Cap PO SCH ×3 (09:39→20:36)
[2022-01-30] MEDS: Pantoprazole 40 MG Vial IVPUSH SCH (09:39)
[2022-01-30] MEDS: Enoxaparin 40 MG/0.4 ML Syringe SUBCUT SCH (09:39)
[2022-01-30] MEDS: Pregabalin 75 MG Cap PO SCH ×3 (09:40→20:36)
[2022-01-30] MEDS: tiZANidine 4 MG Tab PO SCH ×3 (09:43→20:37)
[2022-01-31] MEDS ORDERED: traZODone 50 MG Tab PO ONE (00:01)
[2022-01-31] MEDS: Piperacillin/Tazobactam 4.5 GM in Sodium Chloride 0.9% 100 ML IV SCH ×5 (02:08→19:05)
[2022-01-31] MEDS: Levothyroxine 25 MCG Tab PO SCH (06:23)
[2022-01-31] MEDS: Levothyroxine 112 MCG Tab PO SCH (06:23)
[2022-01-31] MEDS: methylPREDNISolone Sodium Succinate 40 MG/1 ML SDV IVPUSH SCH ×3 (06:23→21:22)
[2022-01-31] MEDS: oxyCODONE 5 MG Tab PO PRN ×4 (06:23→20:37)
[2022-01-31] MEDS: Albuterol/Ipratropium 3.0-0.5 MG/3 ML Neb Soln NEB SCH ×4 (08:28→20:19)
[2022-01-31] MEDS: Pantoprazole 40 MG Vial IVPUSH SCH (08:57)
[2022-01-31] MEDS: Enoxaparin 40 MG/0.4 ML Syringe SUBCUT SCH (08:59)
[2022-01-31] MEDS: Pregabalin 75 MG Cap PO SCH ×3 (08:59→20:37)
[2022-01-31] MEDS: Pregabalin 25 MG Cap PO SCH ×3 (08:59→20:37)
[2022-01-31] MEDS: tiZANidine 4 MG Tab PO SCH ×3 (08:59→20:37)
[2022-01-31] MEDS: Lidocaine 4% 1 each Patch TOP SCH (09:00)
[2022-01-31] MEDS: Mirtazapine 15 MG Tab PO SCH (21:22)
[2022-02-01] MEDS: Piperacillin/Tazobactam 4.5 GM in Sodium Chloride 0.9% 100 ML IV SCH ×3 (01:38→17:39)
[2022-02-01] MEDS: Levothyroxine 112 MCG Tab PO SCH (06:13)
[2022-02-01] MEDS: methylPREDNISolone Sodium Succinate 40 MG/1 ML SDV IVPUSH SCH ×3 (06:13→21:00)
[2022-02-01] MEDS: Levothyroxine 25 MCG Tab PO SCH (06:13)
[2022-02-01] MEDS: Lidocaine 4% 1 each Patch TOP SCH (08:29)
[2022-02-01] MEDS: Pantoprazole 40 MG Vial IVPUSH SCH (08:29)
[2022-02-01] MEDS: Pregabalin 25 MG Cap PO SCH ×3 (08:30→20:54)
[2022-02-01] MEDS: Enoxaparin 40 MG/0.4 ML Syringe SUBCUT SCH (08:30)
[2022-02-01] MEDS: tiZANidine 4 MG Tab PO SCH ×3 (08:30→20:54)
[2022-02-01] MEDS: Pregabalin 75 MG Cap PO SCH ×3 (08:30→20:54)
[2022-02-01] MEDS: oxyCODONE 5 MG Tab PO PRN ×3 (08:34→20:55)
[2022-02-01] MEDS: Mirtazapine 15 MG Tab PO SCH (20:54)
[2022-02-02] MEDS: Piperacillin/Tazobactam 4.5 GM in Sodium Chloride 0.9% 100 ML IV SCH ×2 (01:07→09:03)
[2022-02-02] MEDS: oxyCODONE 5 MG Tab PO PRN ×3 (04:17→13:04)
[2022-02-02] MEDS: Levothyroxine 112 MCG Tab PO SCH ×2 (04:17→05:54)
[2022-02-02] MEDS: Levothyroxine 25 MCG Tab PO SCH ×2 (04:18→05:54)
[2022-02-02] MEDS: methylPREDNISolone Sodium Succinate 40 MG/1 ML SDV IVPUSH SCH ×2 (04:18→05:54)
[2022-02-02] MEDS: tiZANidine 4 MG Tab PO SCH ×2 (08:38→14:14)
[2022-02-02] MEDS: Lidocaine 4% 1 each Patch TOP SCH (08:38)
[2022-02-02] MEDS: Pregabalin 25 MG Cap PO SCH ×2 (08:39→14:14)
[2022-02-02] MEDS: Pantoprazole 40 MG Vial IVPUSH SCH (08:39)
[2022-02-02] MEDS: Pregabalin 75 MG Cap PO SCH ×2 (08:39→14:14)
[2022-02-02] MEDS: Enoxaparin 40 MG/0.4 ML Syringe SUBCUT SCH (08:41)
[2022-02-02] MEDS ORDERED: DULoxetine 30 MG Cap PO SCH (09:00)
[2022-02-02 14:14] VITALS: BP 132/73; PULSE 67
[2022-02-02] MEDS ORDERED: Amoxicillin/Clavulanate K 875-125 MG Tab PO SCH (21:00)
== END 2022-02-02 15:00 | DRG 698 ==
LOC: JD.ED 08:05 → JD.ICU 16:19
PROVIDERS: ADMIT Hospitalist; ATTEND Hospitalist
DX: J96.11 Chronic respiratory failure with hypoxia (principal); T83.511A Infection and inflammatory reaction due to indwelling urethral catheter, initial encounter; A41.9 Sepsis, unspecified organism; G93.41 Metabolic encephalopathy; Z93.6 Other artificial openings of urinary tract status; J96.21 Acute and chronic respiratory failure with hypoxia; J96.22 Acute and chronic respiratory failure with hypercapnia; J44.1 Chronic obstructive pulmonary disease with (acute) exacerbation; E66.2 Morbid (severe) obesity with alveolar hypoventilation; G82.20 Paraplegia, unspecified; Z88.8 Allergy status to other drugs, medicaments and biological substances; F11.20 Opioid dependence, uncomplicated; N39.0 Urinary tract infection, site not specified; Z66 Do not resuscitate; Z20.822 Contact with and (suspected) exposure to COVID-19; E03.9 Hypothyroidism, unspecified; G47.00 Insomnia, unspecified; G47.33 Obstructive sleep apnea (adult) (pediatric); G25.81 Restless legs syndrome; K59.00 Constipation, unspecified; N31.9 Neuromuscular dysfunction of bladder, unspecified; F41.9 Anxiety disorder, unspecified; F32.A Depression, unspecified; F41.1 Generalized anxiety disorder; G89.4 Chronic pain syndrome; M62.838 Other muscle spasm; I10 Essential (primary) hypertension; Z91.19 Patient's noncompliance with other medical treatment and regimen; Z87.440 Personal history of urinary (tract) infections; Z79.890 Hormone replacement therapy; Z79.899 Other long term (current) drug therapy
CPT/HCPCS: 0240U; 36415; 36600; 51702; 71045; 80048; 80053; 80306; 81001; 82803; 83605; 83735; 83880; 83930; 84484; 85025; 85027; 85379; 85610; 85652; 85730; 86140; 87040; 87086; 87088; 87186; 93005; 93306; 94640; 94660; 94667; 94668; 94762; 96361; 96365; 96375; 99285; 93010; 99223; 99233; 99238; A9270-GY; C9113; J1650; J1940; J1956; J2543; J2920; J2930; J3480; J7120; J7620-GY

== ENCOUNTER 2022-04-24 16:33 | Inpatient (IN) | payer MEDICAID ==
[2022-04-24] MEDS ORDERED: Sodium Chloride 0.9% 10 ML Syringe FLUSH PRN (16:59)
[2022-04-24 17:40] LABS: CORONAVIRUS COVID-19 NAA NEGATIVE (NEGATIVE)
[2022-04-24 18:01] LABS: ESTIMATED GFR 65 mL/min (>60)
[2022-04-24] MEDS ORDERED: Azithromycin 500 MG in Sodium Chloride 0.9% 250 ML IV ONE ×2 (19:10→22:00)
[2022-04-24] MEDS ORDERED: tiZANidine 4 MG Tab PO ONE (19:10)
[2022-04-24] MEDS ORDERED: cefTRIAXone 2 GM in Sodium Chloride 0.9% 100 ML IV ONE (19:11)
[2022-04-24] MEDS ORDERED: Pantoprazole 40 MG Vial IV ONE (19:45)
[2022-04-24] MEDS ORDERED: Ondansetron 4 MG/2 ML SDV IVPUSH ONE (20:27)
[2022-04-24] MEDS: Baclofen 10 MG Tab PO PRN (21:17)
[2022-04-24] MEDS: Acetaminophen/HYDROcodone 325-10 MG Tab PO PRN (21:39)
[2022-04-25] MEDS ORDERED: Albuterol/Ipratropium 3.0-0.5 MG/3 ML Neb Soln NEB PRN (01:17)
[2022-04-25] MEDS: Sodium Chloride 0.9% 1,000 ML IV SCH ×2 (01:21→20:52)
[2022-04-25] MEDS: Acetaminophen/HYDROcodone 325-10 MG Tab PO PRN ×3 (02:08→12:37)
[2022-04-25] MEDS: Albuterol 6.7 GM Inhaler INH SCH ×5 (04:37→20:30)
[2022-04-25] MEDS: Acetaminophen 325 MG Tab PO PRN (05:13)
[2022-04-25 06:39] LABS: ESTIMATED GFR 58 mL/min (>60)
[2022-04-25] MEDS: Ondansetron 4 MG Tab.DIS PO PRN ×2 (06:56→12:53)
[2022-04-25] MEDS: Enoxaparin 40 MG/0.4 ML Syringe SUBCUT SCH (08:36)
[2022-04-25] MEDS ORDERED: Enoxaparin 30 MG/0.3 ML Syringe SUBCUT SCH (09:00)
[2022-04-25] MEDS ORDERED: Metoclopramide 10 MG/2 ML SDV IVPUSH PRN (09:52)
[2022-04-25] MEDS: Baclofen 10 MG Tab PO PRN (12:37)
[2022-04-25] MEDS: Nicotine 14 MG/24 Hr Patch TRDERM SCH ×2 (12:37→12:49)
[2022-04-25] MEDS ORDERED: Ibuprofen 600 MG Tab PO PRN (12:45)
[2022-04-25] MEDS ORDERED: Promethazine 25 MG Tab PO PRN (12:47)
[2022-04-25] MEDS ORDERED: Piperacillin/Tazobactam 4.5 GM in Sodium Chloride 0.9% 100 ML IV ONE (13:00)
[2022-04-25] MEDS ORDERED: Promethazine 25 MG Tab PO ONE (13:29)
[2022-04-25] MEDS: LORazepam 1 MG Tab PO PRN (13:37)
[2022-04-25] MEDS ORDERED: guaiFENesin 600 MG Tab.ER PO PRN (16:17)
[2022-04-25] MEDS ORDERED: Baclofen 10 MG Tab PO PRN (16:17)
[2022-04-25] MEDS ORDERED: Benzocaine/Cetylpyridinium/Menthol Lozenge MUCMEM PRN (16:17)
[2022-04-25] MEDS ORDERED: Albuterol 6.7 GM Inhaler INH SCH (16:30)
[2022-04-25] MEDS: Piperacillin/Tazobactam 4.5 GM in Sodium Chloride 0.9% 100 ML IV SCH (18:28)
[2022-04-25] MEDS: Formoterol/Mometasone 200-5 MCG 8.8 GM Inhaler IH SCH (20:30)
[2022-04-25] MEDS: Pregabalin 25 MG Cap PO SCH (22:15)
[2022-04-25] MEDS: Mirtazapine 30 MG Tab PO SCH (22:15)
[2022-04-26] MEDS: Piperacillin/Tazobactam 4.5 GM in Sodium Chloride 0.9% 100 ML IV SCH ×4 (02:30→18:48)
[2022-04-26] MEDS: Albuterol 6.7 GM Inhaler INH SCH ×2 (03:08→08:06)
[2022-04-26] MEDS: Levothyroxine 25 MCG Tab PO SCH (05:42)
[2022-04-26] MEDS: Levothyroxine 112 MCG Tab PO SCH (05:42)
[2022-04-26] MEDS: Formoterol/Mometasone 200-5 MCG 8.8 GM Inhaler IH SCH ×2 (08:05→21:44)
[2022-04-26] MEDS: Tiotropium Bromide 4 GM Inhalation Spray (2.5mcg/1 dose; 10 doses) INH SCH (08:06)
[2022-04-26] MEDS ORDERED: Sodium Chloride 0.9% 10 ML Syringe FLUSH PRN ×2 (08:32→11:28)
[2022-04-26] MEDS ORDERED: Iopamidol 612 MG/ML 100 ML Bottle IVPUSH ONE (08:32)
[2022-04-26] MEDS: Ondansetron 4 MG Tab.DIS PO PRN (08:43)
[2022-04-26] MEDS: LORazepam 1 MG Tab PO PRN (09:54)
[2022-04-26] MEDS ORDERED: methylPREDNISolone Sodium Succinate 2 GM Vial IV ONE (10:31)
[2022-04-26] MEDS ORDERED: Iopamidol 755 Mg/ML 100 ML Bottle IVPUSH ONE (10:36)
[2022-04-26] MEDS ORDERED: Sodium Chloride 0.9% 100 ML IV SCH (10:45)
[2022-04-26] MEDS ORDERED: methylPREDNISolone Sodium Succinate 125 MG/2 ML SDV IVPUSH ONE (11:00)
[2022-04-26] MEDS: Lidocaine 4% 1 each Patch TOP SCH (11:41)
[2022-04-26] MEDS: Pregabalin 25 MG Cap PO SCH ×3 (12:32→22:04)
[2022-04-26] MEDS: Enoxaparin 40 MG/0.4 ML Syringe SUBCUT SCH (12:32)
[2022-04-26] MEDS: Saccharomyces Boulardii (Probiotic) 250 MG Cap PO SCH (12:32)
[2022-04-26] MEDS: DULoxetine 30 MG Cap PO SCH (12:32)
[2022-04-26] MEDS: Multivitamin Tab PO SCH (12:33)
[2022-04-26] MEDS: Nicotine 14 MG/24 Hr Patch TRDERM SCH (12:33)
[2022-04-26] MEDS: Albuterol/Ipratropium 3.0-0.5 MG/3 ML Neb Soln NEB SCH ×3 (12:44→21:46)
[2022-04-26] MEDS ORDERED: LORazepam 2 MG/ML SDV IVPUSH ONE (18:30)
[2022-04-26] MEDS: methylPREDNISolone Sodium Succinate 40 MG/1 ML SDV IVPUSH SCH (18:53)
[2022-04-26] MEDS ORDERED: methylPREDNISolone Sodium Succinate 125 MG/2 ML SDV IVPUSH SCH (19:00)
[2022-04-26] MEDS: Mirtazapine 30 MG Tab PO SCH (22:04)
[2022-04-26] MEDS: Pregabalin 75 MG Cap PO SCH (22:04)
[2022-04-27] MEDS: Piperacillin/Tazobactam 4.5 GM in Sodium Chloride 0.9% 100 ML IV SCH ×3 (02:35→18:20)
[2022-04-27] MEDS: methylPREDNISolone Sodium Succinate 40 MG/1 ML SDV IVPUSH SCH ×3 (02:35→18:20)
[2022-04-27] MEDS: Sodium Chloride 0.9% 1,000 ML IV SCH (02:38)
[2022-04-27] MEDS: Albuterol/Ipratropium 3.0-0.5 MG/3 ML Neb Soln NEB SCH ×4 (03:34→21:16)
[2022-04-27] MEDS: Levothyroxine 25 MCG Tab PO SCH (05:24)
[2022-04-27] MEDS: Levothyroxine 112 MCG Tab PO SCH (05:24)
[2022-04-27] MEDS: Tiotropium Bromide 4 GM Inhalation Spray (2.5mcg/1 dose; 10 doses) INH SCH (08:03)
[2022-04-27] MEDS: Formoterol/Mometasone 200-5 MCG 8.8 GM Inhaler IH SCH ×2 (08:03→21:16)
[2022-04-27] MEDS: Pregabalin 75 MG Cap PO SCH ×3 (08:55→20:04)
[2022-04-27] MEDS: DULoxetine 30 MG Cap PO SCH (08:56)
[2022-04-27] MEDS: Pregabalin 25 MG Cap PO SCH ×3 (08:56→20:04)
[2022-04-27] MEDS: Multivitamin Tab PO SCH (08:56)
[2022-04-27] MEDS: Acetaminophen 325 MG Tab PO PRN (08:57)
[2022-04-27] MEDS: Saccharomyces Boulardii (Probiotic) 250 MG Cap PO SCH (08:57)
[2022-04-27] MEDS: Enoxaparin 40 MG/0.4 ML Syringe SUBCUT SCH (08:58)
[2022-04-27] MEDS: Lidocaine 4% 1 each Patch TOP SCH (08:59)
[2022-04-27] MEDS: Acetaminophen/HYDROcodone 325-10 MG Tab PO PRN (10:26)
[2022-04-27] MEDS: Baclofen 10 MG Tab PO PRN (10:42)
[2022-04-27] MEDS ORDERED: VANCOmycin 1.25 GM/250 ML 1.25 GM in Premix Bag 1 BAG IV SCH (11:00)
[2022-04-27] MEDS: Nicotine 14 MG/24 Hr Patch TRDERM SCH (12:32)
[2022-04-27] MEDS: Mirtazapine 30 MG Tab PO SCH (20:04)
[2022-04-28] MEDS: methylPREDNISolone Sodium Succinate 40 MG/1 ML SDV IVPUSH SCH (02:30)
[2022-04-28] MEDS: Piperacillin/Tazobactam 4.5 GM in Sodium Chloride 0.9% 100 ML IV SCH ×2 (02:30→11:26)
[2022-04-28] MEDS: Albuterol/Ipratropium 3.0-0.5 MG/3 ML Neb Soln NEB SCH ×2 (02:59→08:04)
[2022-04-28] MEDS: Levothyroxine 25 MCG Tab PO SCH (05:28)
[2022-04-28] MEDS: Levothyroxine 112 MCG Tab PO SCH (05:28)
[2022-04-28] MEDS: Tiotropium Bromide 4 GM Inhalation Spray (2.5mcg/1 dose; 10 doses) INH SCH (08:04)
[2022-04-28] MEDS: Formoterol/Mometasone 200-5 MCG 8.8 GM Inhaler IH SCH (08:04)
[2022-04-28] MEDS: Pregabalin 75 MG Cap PO SCH (08:39)
[2022-04-28] MEDS: Pregabalin 25 MG Cap PO SCH (08:39)
[2022-04-28] MEDS: Acetaminophen/HYDROcodone 325-10 MG Tab PO PRN (08:39)
[2022-04-28] MEDS: Saccharomyces Boulardii (Probiotic) 250 MG Cap PO SCH (08:39)
[2022-04-28] MEDS: Multivitamin Tab PO SCH (08:39)
[2022-04-28] MEDS: DULoxetine 30 MG Cap PO SCH (08:40)
[2022-04-28] MEDS: Lidocaine 4% 1 each Patch TOP SCH (08:40)
[2022-04-28] MEDS: Enoxaparin 40 MG/0.4 ML Syringe SUBCUT SCH (08:40)
[2022-04-28] MEDS: Nicotine 14 MG/24 Hr Patch TRDERM SCH (11:36)
[2022-04-28 12:41] VITALS: BP 137/98; PULSE 94
[2022-04-28 20:47] LABS: BORDETELLA PARAPERT IS1001 Not Detected (Not Detected)
[2022-04-29] MEDS ORDERED: predniSONE 20 MG Tab PO SCH (07:00)
== END 2022-04-28 13:42 | DRG 193 ==
LOC: JD.ED 16:33 → JD.MS 19:32
PROVIDERS: ADMIT Pediatrics; ATTEND Pediatrics
DX: J18.9 Pneumonia, unspecified organism (principal); R09.02 Hypoxemia; J96.21 Acute and chronic respiratory failure with hypoxia; J96.02 Acute respiratory failure with hypercapnia; G82.20 Paraplegia, unspecified; J44.0 Chronic obstructive pulmonary disease with (acute) lower respiratory infection; F17.210 Nicotine dependence, cigarettes, uncomplicated; Z93.6 Other artificial openings of urinary tract status; Z88.8 Allergy status to other drugs, medicaments and biological substances; Z79.2 Long term (current) use of antibiotics; Z20.822 Contact with and (suspected) exposure to COVID-19; G89.4 Chronic pain syndrome; Z96.0 Presence of urogenital implants; G62.9 Polyneuropathy, unspecified; I10 Essential (primary) hypertension; K59.09 Other constipation; N31.9 Neuromuscular dysfunction of bladder, unspecified; M54.9 Dorsalgia, unspecified; G43.909 Migraine, unspecified, not intractable, without status migrainosus; F41.9 Anxiety disorder, unspecified; F32.A Depression, unspecified; G47.00 Insomnia, unspecified; E03.9 Hypothyroidism, unspecified; E66.9 Obesity, unspecified; M96.1 Postlaminectomy syndrome, not elsewhere classified; F11.29 Opioid dependence with unspecified opioid-induced disorder; Z99.81 Dependence on supplemental oxygen; Z79.890 Hormone replacement therapy; Z79.899 Other long term (current) drug therapy; Z90.710 Acquired absence of both cervix and uterus; Z88.1 Allergy status to other antibiotic agents; Z93.59 Other cystostomy status; Z28.310 Unvaccinated for COVID-19; Z87.440 Personal history of urinary (tract) infections; Z86.19 Personal history of other infectious and parasitic diseases; Z68.31 Body mass index [BMI] 31.0-31.9, adult
CPT/HCPCS: 0240U; 36415; 36600; 71045; 71275; 80048; 80053; 80202; 80306; 82140; 82803; 83735; 83880; 84145; 84443; 84484; 85025; 85027; 86140; 87040; 87081; 87486; 87581; 87633; 87635; 87798; 93005; 94640; 94667; 94668; 94761; 99285; 87147; 93010; 99284; A9270-GY; C9113; J0456; J0696; J1650; J2060; J2405; J2543; J2765; J2920; J2930; J3370; J7030; J7050; J7620-GY; J8597; Q9967; U0002

== ENCOUNTER 2023-11-10 08:20 | Emergency (ER) | payer MEDICAID ==
[2023-11-10 08:43] LABS: BASOPHILS ABSOLUTE AUTO 0.1 K/mm3 (0.0-0.2); BASOPHILS PERCENT AUTO 0.9 % (0.0-1.0); EOSINOPHILS ABSOLUTE AUTO 0.2 K/mm3 (0.0-0.4); EOSINOPHILS PERCENT AUTO 2.5 % (0.0-6.0); HEMATOCRIT 52.8 % (37.0-47.0); HEMOGLOBIN 16.3 gm/dl (12.0-16.0); IMMATURE GRAN ABSOLUTE AUTO 0.08 K/mm3 (0.00-0.05); IMMATURE GRAN PERCENT AUTO 0.9 % (0.0-0.4); LYMPHOCYTES ABSOLUTE AUTO 1.5 K/mm3 (1.0-4.8); LYMPHOCYTES PERCENT AUTO 17.2 % (24.0-44.0); MEAN CORPUSCULAR HEMOGLOBIN 28.6 pg (28.0-32.0); MEAN CORPUSCULAR HGB CONC 30.9 g/dl (32.0-36.0); MEAN CORPUSCULAR VOLUME 92.6 fl (83.0-99.0); MEAN PLATELET VOLUME 10.1 fl (9.4-12.3); MONOCYTES ABSOLUTE AUTO 0.5 K/mm3 (0.0-0.8); MONOCYTES PERCENT AUTO 5.6 % (0.0-8.0); NEUTROPHILS ABSOLUTE AUTO 6.5 K/mm3 (1.8-7.7); NEUTROPHILS PERCENT AUTO 72.9 % (41.0-71.0); PLATELET COUNT,PLT 179 K/mm3 (150-400); WHITE BLOOD CELL COUNT,WBC 8.85 K/mm3 (3.9-11.3)
[2023-11-10] MEDS: Sodium Chloride 0.9% 1,000 ML IV SCH (08:46)
[2023-11-10] MEDS: Sodium Chloride 0.9% 10 ML Syringe FLUSH PRN ×2 (08:53→08:56)
[2023-11-10 09:11] LABS: A/G RATIO 0.9 (1-2); ANION GAP 15.1 (5-15); BILIRUBIN TOTAL 0.8 mg/dL (0.2-1.0); BUN/CREATININE RATIO 13.3 (14-18); CALCIUM 9.7 mg/dL (8.5-10.1); CREATININE 1.2 mg/dL (0.55-1.02); EST CRCL DRUG DOSING (CG) 52.1 mL/min; POTASSIUM,K 4.1 mEq/L (3.5-5.1); PROTEIN TOTAL,TP 8.5 g/dl (6.4-8.2)
[2023-11-10 09:16] LABS: LACTIC ACID 1.1 mmol/L (0.4-2.0)
[2023-11-10] MEDS: Iopamidol 755 Mg/ML 100 ML Bottle IVPUSH ONE (09:17)
[2023-11-10] MEDS: Sodium Chloride 0.9% 100 ML IV SCH (09:17)
[2023-11-10 09:35] LABS: APPEARANCE,URINE CLOUDY (Clear); BILIRUBIN,URINE NEGATIVE (Negative); COLOR,URINE YELLOW (Yellow); GLUCOSE,URINE NEGATIVE (Negative); KETONES,URINE NEGATIVE (Negative); LEUKOCYTE ESTERASE,URINE 1+ (Negative); NITRITE,URINE POSITIVE (Negative); OCCULT BLOOD,URINE 2+ (Negative); PROTEIN,URINE 2+ (Negative)
[2023-11-10 09:40] LABS: CORONAVIRUS COVID-19 NAA NEGATIVE (NEGATIVE); INFLUENZA A NAA NEGATIVE (NEGATIVE); RESPIRATORY SYNCYTIAL VIR NAA NEGATIVE (NEGATIVE)
[2023-11-10 09:42] LABS: BARBITURATE SCREEN,URINE NEGATIVE (CUTOFF=200); BENZODIAZEPINES SCREEN,URINE NEGATIVE (CUTOFF=150); BUPRENORPHINE SCREEN,URINE NEGATIVE (CUTOFF=10); METHADONE SCREEN, URINE NEGATIVE (CUTOFF=200); METHAMPHETAMINES SCREEN, URINE NEGATIVE (CUTOFF=500); OXYCODONE SCREEN,URINE NEGATIVE (CUT0FF=100); THC SCREEN,URINE 20 NG/ML NEGATIVE (CUTOFF=50)
[2023-11-10 10:03] LABS: AMPHETAMINES SCREEN, URINE NEGATIVE (CUTOFF=500)
[2023-11-10] MEDS: Levofloxacin/Dextrose 5%-Water 500 MG in Premix Bag 1 BAG IV ONE (10:28)
[2023-11-10 10:45] LABS: BACTERIA,URINE MANY /hpf (FEW); MUCUS,URINE MODERATE /hpf (FEW); RBC,URINE 20-30 /hpf (0-5); WBC,URINE 40-50 /hpf (0-5)
[2023-11-10 17:51] VITALS: BP 136/64; PULSE 69
== END 2023-11-10 13:10 | disposition home or self-care (01) ==
LOC: JD.ED 08:20
DX: T42.8X1A Poisoning by antiparkinsonism drugs and other central muscle-tone depressants, accidental (unintentional), initial encounter (principal); N39.0 Urinary tract infection, site not specified; I10 Essential (primary) hypertension; J44.9 Chronic obstructive pulmonary disease, unspecified; E66.9 Obesity, unspecified; E03.9 Hypothyroidism, unspecified; Z88.8 Allergy status to other drugs, medicaments and biological substances; Z79.899 Other long term (current) drug therapy; Z90.710 Acquired absence of both cervix and uterus; Z68.33 Body mass index [BMI] 33.0-33.9, adult
CPT/HCPCS: 0241U; 36415; 70450; 70450-26; 70496; 70496-26; 71045; 71045-26; 80053; 80306; 81001; 82140; 82947; 83605; 85025; 87086; 96361; 96365; 99284; 99285-25; J1956; J3490; J7030; Q9967

== ENCOUNTER 2023-11-18 08:54 | Emergency (ER) | payer MEDICAID ==
[2023-11-18 09:44] LABS: APPEARANCE,URINE SLT CLOUDY (Clear); BILIRUBIN,URINE 1+ (Negative); COLOR,URINE DARK YELLOW (Yellow); GLUCOSE,URINE NEGATIVE (Negative); KETONES,URINE NEGATIVE (Negative); LEUKOCYTE ESTERASE,URINE TRACE (Negative); NITRITE,URINE POSITIVE (Negative); OCCULT BLOOD,URINE 1+ (Negative); PROTEIN,URINE 3+ (Negative); UROBILINOGEN,URINE 0.2 (0.2-1.0)
[2023-11-18 09:50] LABS: BASOPHILS ABSOLUTE AUTO 0.1 K/mm3 (0.0-0.2); BASOPHILS PERCENT AUTO 0.5 % (0.0-1.0); EOSINOPHILS ABSOLUTE AUTO 0.1 K/mm3 (0.0-0.4); EOSINOPHILS PERCENT AUTO 0.5 % (0.0-6.0); HEMATOCRIT 47.3 % (37.0-47.0); HEMOGLOBIN 15.2 gm/dl (12.0-16.0); IMMATURE GRAN ABSOLUTE AUTO 0.09 K/mm3 (0.00-0.05); IMMATURE GRAN PERCENT AUTO 0.9 % (0.0-0.4); LYMPHOCYTES ABSOLUTE AUTO 0.7 K/mm3 (1.0-4.8); MEAN CORPUSCULAR HEMOGLOBIN 28.9 pg (28.0-32.0); MEAN CORPUSCULAR HGB CONC 32.1 g/dl (32.0-36.0); MEAN CORPUSCULAR VOLUME 89.9 fl (83.0-99.0); MEAN PLATELET VOLUME 10.5 fl (9.4-12.3); MONOCYTES ABSOLUTE AUTO 0.5 K/mm3 (0.0-0.8); MONOCYTES PERCENT AUTO 4.6 % (0.0-8.0); NEUTROPHILS ABSOLUTE AUTO 8.7 K/mm3 (1.8-7.7); NEUTROPHILS PERCENT AUTO 86.5 % (41.0-71.0); PLATELET COUNT,PLT 231 K/mm3 (150-400); RED BLOOD CELL COUNT 5.26 M/mm3 (4.10-5.30); WHITE BLOOD CELL COUNT,WBC 10.05 K/mm3 (3.9-11.3)
[2023-11-18 09:52] LABS: BARBITURATE SCREEN,URINE NEGATIVE (CUTOFF=200); BENZODIAZEPINES SCREEN,URINE NEGATIVE (CUTOFF=150); BUPRENORPHINE SCREEN,URINE NEGATIVE (CUTOFF=10); METHADONE SCREEN, URINE NEGATIVE (CUTOFF=200); METHAMPHETAMINES SCREEN, URINE NEGATIVE (CUTOFF=500); OXYCODONE SCREEN,URINE PRESUMPTIVE POSITIVE (CUT0FF=100); THC SCREEN,URINE 20 NG/ML NEGATIVE (CUTOFF=50)
[2023-11-18 09:53] LABS: AMPHETAMINES SCREEN, URINE NEGATIVE (CUTOFF=500)
[2023-11-18 09:55] LABS: BACTERIA,URINE MODERATE /hpf (FEW); MUCUS,URINE MODERATE /hpf (FEW)
[2023-11-18 10:09] LABS: D-DIMER QUANTITATIVE 0.33 mg/L (0.19-0.50); INR 1.03
[2023-11-18 10:10] LABS: PTT,PARTIAL THROMBOPLSTIN TIME 26.9 SECONDS (21.7-31.4)
[2023-11-18 10:18] LABS: A/G RATIO 0.9 (1-2); ALBUMIN 3.8 g/dl (3.4-5.0); BILIRUBIN TOTAL 0.7 mg/dL (0.2-1.0); BUN/CREATININE RATIO 9.1 (14-18); CALCIUM 9.4 mg/dL (8.5-10.1); CREATININE 1.1 mg/dL (0.55-1.02); EST CRCL DRUG DOSING (CG) 56.84 mL/min
[2023-11-18 13:42] LABS: BASE EXCESS ARTERIAL -4.8 (-2-2.0); BICARBONATE,ARTERIAL 24.6 meq/L (22.0-26.0); PCO2 ARTERIAL 66.3 mmHg (35.0-45.0)
[2023-11-18] MEDS: Acetaminophen/oxyCODONE 325-5 MG Tab PO ONE (13:51)
[2023-11-18 14:06] LABS: BASOPHILS ABSOLUTE AUTO 0.1 K/mm3 (0.0-0.2); BASOPHILS PERCENT AUTO 0.6 % (0.0-1.0); EOSINOPHILS PERCENT AUTO 0.2 % (0.0-6.0); HEMATOCRIT 56.8 % (37.0-47.0); IMMATURE GRAN ABSOLUTE AUTO 0.21 K/mm3 (0.00-0.05); LYMPHOCYTES PERCENT AUTO 30.1 % (24.0-44.0); MEAN CORPUSCULAR HEMOGLOBIN 28.9 pg (28.0-32.0); MEAN CORPUSCULAR HGB CONC 30.1 g/dl (32.0-36.0); MONOCYTES ABSOLUTE AUTO 1.4 K/mm3 (0.0-0.8); MONOCYTES PERCENT AUTO 7.1 % (0.0-8.0); NEUTROPHILS ABSOLUTE AUTO 12.2 K/mm3 (1.8-7.7); RED BLOOD CELL COUNT 5.91 M/mm3 (4.10-5.30); WHITE BLOOD CELL COUNT,WBC 20.02 K/mm3 (3.9-11.3)
[2023-11-18 14:09] LABS: A/G RATIO 0.9 (1-2); ALBUMIN 4.5 g/dl (3.4-5.0); ANION GAP 22.4 (5-15); BUN/CREATININE RATIO 7.9 (14-18); CALCIUM 10.7 mg/dL (8.5-10.1); CREATININE 1.4 mg/dL (0.55-1.02); EST CRCL DRUG DOSING (CG) 44.66 mL/min; PROTEIN TOTAL,TP 9.4 g/dl (6.4-8.2)
[2023-11-18 14:26] LABS: POTASSIUM,K 3.4 mEq/L (3.5-5.1)
[2023-11-18 14:30] LABS: HEMOGLOBIN 17.1 gm/dl (12.0-16.0); MEAN CORPUSCULAR VOLUME 96.1 fl (83.0-99.0); PLATELET COUNT,PLT 311 K/mm3 (150-400)
[2023-11-18 14:46] LABS: SLIDE REVIEW ABNORMAL SMEAR
[2023-11-18 15:25] VITALS: BP 174/117; PULSE 101
== END 2023-11-18 14:45 ==
LOC: JD.ED 08:54
DX: R56.9 Unspecified convulsions (principal); J44.9 Chronic obstructive pulmonary disease, unspecified; I10 Essential (primary) hypertension; E03.9 Hypothyroidism, unspecified; E66.9 Obesity, unspecified; Z79.899 Other long term (current) drug therapy; Z88.1 Allergy status to other antibiotic agents; Z68.35 Body mass index [BMI] 35.0-35.9, adult
CPT/HCPCS: 36415; 36600; 70450; 80053; 80306; 80307; 81001; 81003; 82803; 82947; 83605; 83735; 83880; 84443; 84484; 85025; 85379; 85610; 85730; 87086; 87088; 87186; 93005; 94660; 96372; 96374; 96376; 99285; J3360; 93010

== ENCOUNTER 2024-05-19 10:28 | Emergency (ER) | payer MEDICAID ==
[2024-05-19 10:39] VITALS: PULSE 82
[2024-05-19] MEDS ORDERED: Sodium Chloride 0.9% 10 ML Syringe FLUSH PRN (10:57)
[2024-05-19] MEDS: Iopamidol 755 Mg/ML 100 ML Bottle IVPUSH ONE ×2 (11:11→12:22)
[2024-05-19 11:32] LABS: BASOPHILS PERCENT AUTO 0.3 % (0.0-1.0); EOSINOPHILS ABSOLUTE AUTO 0.2 K/mm3 (0.0-0.4); EOSINOPHILS PERCENT AUTO 3.3 % (0.0-6.0); HEMATOCRIT 47.3 % (37.0-47.0); HEMOGLOBIN 14.7 gm/dl (12.0-16.0); IMMATURE GRAN ABSOLUTE AUTO 0.03 K/mm3 (0.00-0.05); IMMATURE GRAN PERCENT AUTO 0.5 % (0.0-0.4); LYMPHOCYTES ABSOLUTE AUTO 1.7 K/mm3 (1.0-4.8); MEAN CORPUSCULAR HEMOGLOBIN 27.8 pg (28.0-32.0); MEAN CORPUSCULAR HGB CONC 31.1 g/dl (32.0-36.0); MEAN CORPUSCULAR VOLUME 89.6 fl (83.0-99.0); MEAN PLATELET VOLUME 9.9 fl (9.4-12.3); MONOCYTES ABSOLUTE AUTO 0.5 K/mm3 (0.0-0.8); MONOCYTES PERCENT AUTO 8.2 % (0.0-8.0); NEUTROPHILS ABSOLUTE AUTO 3.9 K/mm3 (1.8-7.7); NEUTROPHILS PERCENT AUTO 60.7 % (41.0-71.0); PLATELET COUNT,PLT 176 K/mm3 (150-400); RED BLOOD CELL COUNT 5.28 M/mm3 (4.10-5.30); WHITE BLOOD CELL COUNT,WBC 6.34 K/mm3 (3.9-11.3)
[2024-05-19 12:08] LABS: A/G RATIO 0.9 (1-2); ALANINE AMINOTRANSFERASE,ALT 37 U/L (14-59); ALBUMIN 3.3 g/dl (3.4-5.0); ALKALINE PHOSPHATASE 202 U/L (46-116); ANION GAP 11.3 (5-15); ASPARTATE AMNIOTRANSFERASE,AST 32 U/L (15-37); BILIRUBIN TOTAL 0.7 mg/dL (0.2-1.0); BLOOD UREA NITROGEN,BUN 13 mg/dL (7-18); CARBON DIOXIDE,CO2 32 mEq/L (21-32); CHLORIDE,CL 101 mEq/L (98-107); ESTIMATED GFR 64 mL/min (>60); GLUCOSE RANDOM 174 mg/dL (70-99); POTASSIUM,K 4.3 mEq/L (3.5-5.1); PROTEIN TOTAL,TP 6.9 g/dl (6.4-8.2); SODIUM,NA 140 mEq/L (136-145); TROPONIN I HIGH SENSITIVITY 6 pg/mL (<=51)
[2024-05-19 12:09] LABS: PRO B-TYPE NATRIUR PEPT,BNPPRO 45 pg/mL (0-125)
[2024-05-19] MEDS: Sodium Chloride 0.9% 100 ML IV SCH (12:22)
[2024-05-19] MEDS ORDERED: Sodium Chloride 0.9% 100 ML IV SCH (12:30)
[2024-05-19 12:37] LABS: CORONAVIRUS COVID-19 NAA NEGATIVE (NEGATIVE); INFLUENZA A NAA NEGATIVE (NEGATIVE); RESPIRATORY SYNCYTIAL VIR NAA NEGATIVE (NEGATIVE)
[2024-05-19] MEDS: Sodium Chloride 0.9% 500 ML IV ONE (12:41)
[2024-05-19 12:44] VITALS: BP 118/58
== END 2024-05-19 16:30 | disposition home or self-care (01) ==
LOC: JD.ED 10:28
DX: R07.9 Chest pain, unspecified (principal); M54.2 Cervicalgia; J44.9 Chronic obstructive pulmonary disease, unspecified; I10 Essential (primary) hypertension; E03.9 Hypothyroidism, unspecified; E66.9 Obesity, unspecified; Z90.710 Acquired absence of both cervix and uterus; Z79.899 Other long term (current) drug therapy; Z88.1 Allergy status to other antibiotic agents
CPT/HCPCS: 0241U; 36415; 70491; 71275; 80053; 83880; 84484; 85025; 86308; 87651; 93005; 99285; J3490; J7030; Q9967

== ENCOUNTER 2024-06-12 11:31 | Inpatient (IN) | payer MEDICAID ==
[2024-06-12] MEDS ORDERED: Sodium Chloride 0.9% 10 ML Syringe FLUSH PRN (11:53)
[2024-06-12 12:15] LABS: BASE EXCESS ARTERIAL 4.1 (-2-2.0); BICARBONATE,ARTERIAL 32.3 meq/L (22.0-26.0); PCO2 ARTERIAL 68.6 mmHg (35.0-45.0)
[2024-06-12 13:11] LABS: HEMATOCRIT 46.8 % (37.0-47.0); HEMOGLOBIN 14.5 gm/dl (12.0-16.0); MEAN CORPUSCULAR HEMOGLOBIN 27.9 pg (28.0-32.0); MEAN CORPUSCULAR VOLUME 90.2 fl (83.0-99.0); MEAN PLATELET VOLUME 10.3 fl (9.4-12.3); NRBC ABSOLUTE 0.03 (0.00-0.02); NRBC PERCENT 0.3 % (0.0-0.2); PLATELET COUNT,PLT 191 K/mm3 (150-400); RED BLOOD CELL COUNT 5.19 M/mm3 (4.10-5.30); WHITE BLOOD CELL COUNT,WBC 9.59 K/mm3 (3.9-11.3)
[2024-06-12 13:29] LABS: INR 1.06; PROTHROMBIN TIME 11.2 SECONDS (9.7-12.0)
[2024-06-12 13:31] LABS: A/G RATIO 0.8 (1-2); ALBUMIN 3.3 g/dl (3.4-5.0); ANION GAP 11.8 (5-15); BILIRUBIN TOTAL 0.9 mg/dL (0.2-1.0); BUN/CREATININE RATIO 12.5 (14-18); C-REACTIVE PROTEIN 2.01 mg/dL (<0.30); CALCIUM 8.8 mg/dL (8.5-10.1); CREATININE 1.2 mg/dL (0.55-1.02); EST CRCL DRUG DOSING (CG) 51.45 mL/min; POTASSIUM,K 4.8 mEq/L (3.5-5.1); PROTEIN TOTAL,TP 7.3 g/dl (6.4-8.2)
[2024-06-12 13:34] LABS: LACTIC ACID 1.7 mmol/L (0.4-2.0)
[2024-06-12 13:37] LABS: BAND PERCENT MAN 0 % (0-10); BASOPHILS PERCENT MAN 2 (0.1-1.2); EOSINOPHILS PERCENT MAN 1 % (0.7-5.8); LYMPHOCYTES % ATYPICAL MANUAL 0 %; LYMPHOCYTES PERCENT MAN 22 % (20-40); MONOCYTES PERCENT MAN 11 % (2-10)
[2024-06-12 13:39] LABS: ANISOCYTOSIS 1+ SLIGHT; POLYCHROMASIA 1+ SLIGHT
[2024-06-12 13:40] LABS: HYPOCHROMASIA 1+ SLIGHT; OVALOCYTES 1+ SLIGHT; PLATELET COUNT ESTIMATE ADEQUATE; STOMATOCYTES 1+ SLIGHT
[2024-06-12 14:28] LABS: CORONAVIRUS COVID-19 NAA NEGATIVE (NEGATIVE); INFLUENZA A NAA NEGATIVE (NEGATIVE); RESPIRATORY SYNCYTIAL VIR NAA NEGATIVE (NEGATIVE)
[2024-06-12 14:59] LABS: APPEARANCE,URINE SLT CLOUDY (Clear); BILIRUBIN,URINE NEGATIVE (Negative); COLOR,URINE YELLOW (Yellow); GLUCOSE,URINE NEGATIVE (Negative); KETONES,URINE NEGATIVE (Negative); LEUKOCYTE ESTERASE,URINE 1+ (Negative); NITRITE,URINE POSITIVE (Negative); OCCULT BLOOD,URINE 2+ (Negative); PROTEIN,URINE 2+ (Negative); UROBILINOGEN,URINE 0.2 (0.2-1.0)
[2024-06-12 15:12] LABS: BACTERIA,URINE MANY /hpf (FEW); MUCUS,URINE FEW /hpf (FEW)
[2024-06-12] MEDS: methylPREDNISolone Sodium Succinate 40 MG/1 ML SDV IVPUSH ONE (15:30)
[2024-06-12] MEDS: Doxycycline Monohydrate 100 MG Cap PO ONE (15:31)
[2024-06-12] MEDS: cefTRIAXone 2 GM in Sodium Chloride 0.9% 100 ML IV ONE (15:31)
[2024-06-12] MEDS: Albuterol/Ipratropium 3.0-0.5 MG/3 ML Neb Soln NEB ONE (16:42)
[2024-06-12] MEDS ORDERED: Ondansetron 4 MG/2 ML SDV IV PRN (18:07)
[2024-06-12] MEDS: Furosemide 20 MG/2 ML VIAL IVPUSH ONE (19:08)
[2024-06-12] MEDS: Acetaminophen 325 MG Tab PO PRN (20:27)
[2024-06-12] MEDS: Albuterol/Ipratropium 3.0-0.5 MG/3 ML Neb Soln NEB SCH (21:37)
[2024-06-13 07:06] LABS: HEMATOCRIT 48.6 % (37.0-47.0); HEMOGLOBIN 15.1 gm/dl (12.0-16.0); MEAN CORPUSCULAR HEMOGLOBIN 28.2 pg (28.0-32.0); MEAN CORPUSCULAR HGB CONC 31.1 g/dl (32.0-36.0); MEAN CORPUSCULAR VOLUME 90.7 fl (83.0-99.0); MEAN PLATELET VOLUME 10.4 fl (9.4-12.3); NRBC ABSOLUTE 0.03 (0.00-0.02); NRBC PERCENT 0.4 % (0.0-0.2); PLATELET COUNT,PLT 177 K/mm3 (150-400); RED BLOOD CELL COUNT 5.36 M/mm3 (4.10-5.30); WHITE BLOOD CELL COUNT,WBC 7.91 K/mm3 (3.9-11.3)
[2024-06-13 07:11] LABS: A/G RATIO 0.8 (1-2); ALBUMIN 3.5 g/dl (3.4-5.0); ANION GAP 11.7 (5-15); BILIRUBIN TOTAL 0.5 mg/dL (0.2-1.0); BUN/CREATININE RATIO 16.2 (14-18); C-REACTIVE PROTEIN 1.55 mg/dL (<0.30); CREATININE 1.3 mg/dL (0.55-1.02); EST CRCL DRUG DOSING (CG) 47.49 mL/min; POTASSIUM,K 4.7 mEq/L (3.5-5.1); PROTEIN TOTAL,TP 7.8 g/dl (6.4-8.2)
[2024-06-13] MEDS: Enoxaparin 40 MG/0.4 ML Syringe SUBCUT SCH (09:01)
[2024-06-13] MEDS: Doxycycline Monohydrate 100 MG Cap PO SCH (09:01)
[2024-06-13] MEDS ORDERED: SUMAtriptan 50 MG Tab PO PRN (09:33)
[2024-06-13] MEDS: Acetaminophen/oxyCODONE 325-5 MG Tab PO PRN (09:52)
[2024-06-13] MEDS: oxyCODONE 5 MG Tab PO PRN (09:53)
[2024-06-13] MEDS: Insulin Lispro 100 Unit/ML 3 ML KwikPen SUBCUT SCH (11:26)
[2024-06-13] MEDS: Baclofen 10 MG Tab PO PRN (12:57)
[2024-06-13] MEDS: VANCOmycin 1.5 GM/300 ML 1.5 GM in Premix Bag 1 BAG IV SCH (15:08)
[2024-06-13] MEDS: cefTRIAXone 2 GM in Sodium Chloride 0.9% 100 ML IV SCH (16:36)
[2024-06-13] MEDS: Carvedilol 3.125 MG Tab PO SCH (20:47)
[2024-06-13] MEDS: tiZANidine 4 MG Tab PO SCH (20:47)
[2024-06-13] MEDS: Pregabalin 75 MG Cap PO SCH ×2 (20:47)
[2024-06-13] MEDS: Mirtazapine 30 MG Tab PO SCH (20:48)
[2024-06-13] MEDS ORDERED: Non-Formulary Medication 1 Each (Methenamine Hippurate 1 GM Tablet) PO SCH (21:00)
[2024-06-14] MEDS: Levothyroxine 100 MCG Tab PO SCH (05:18)
[2024-06-14] MEDS: Levothyroxine 75 MCG Tab PO SCH (05:18)
[2024-06-14] MEDS: Pantoprazole 40 MG Tab.CR PO SCH (05:18)
[2024-06-14 06:47] LABS: HEMOGLOBIN 15.3 gm/dl (12.0-16.0); MEAN CORPUSCULAR HEMOGLOBIN 27.7 pg (28.0-32.0); MEAN CORPUSCULAR HGB CONC 30.6 g/dl (32.0-36.0); MEAN CORPUSCULAR VOLUME 90.6 fl (83.0-99.0); PLATELET COUNT,PLT 160 K/mm3 (150-400); RED BLOOD CELL COUNT 5.52 M/mm3 (4.10-5.30); WHITE BLOOD CELL COUNT,WBC 5.61 K/mm3 (3.9-11.3)
[2024-06-14 07:06] LABS: A/G RATIO 0.9 (1-2); ALBUMIN 3.4 g/dl (3.4-5.0); ANION GAP 9.8 (5-15); BILIRUBIN TOTAL 0.5 mg/dL (0.2-1.0); BUN/CREATININE RATIO 17.5 (14-18); C-REACTIVE PROTEIN 0.97 mg/dL (<0.30); CALCIUM 9.7 mg/dL (8.5-10.1); CREATININE 1.2 mg/dL (0.55-1.02); EST CRCL DRUG DOSING (CG) 51.45 mL/min; POTASSIUM,K 3.8 mEq/L (3.5-5.1); PROTEIN TOTAL,TP 7.4 g/dl (6.4-8.2)
[2024-06-14] MEDS: Mirabegron 25 MG Tab Extended Release PO SCH (09:23)
[2024-06-14] MEDS: DULoxetine 30 MG Cap PO SCH (09:23)
[2024-06-14] MEDS: Lisinopril 2.5 MG Tab PO SCH (09:24)
[2024-06-14] MEDS: VANCOmycin 1.25 GM/250 ML 1.25 GM in Premix Bag 1 BAG IV SCH (14:42)
[2024-06-14] MEDS: fentaNYL 25 MCG/HR Transdermal Patch TRDERM SCH (20:20)
[2024-06-15 06:47] LABS: HEMATOCRIT 47.3 % (37.0-47.0); HEMOGLOBIN 14.9 gm/dl (12.0-16.0); MEAN CORPUSCULAR HEMOGLOBIN 27.6 pg (28.0-32.0); MEAN CORPUSCULAR HGB CONC 31.5 g/dl (32.0-36.0); MEAN CORPUSCULAR VOLUME 87.8 fl (83.0-99.0); MEAN PLATELET VOLUME 9.9 fl (9.4-12.3); PLATELET COUNT,PLT 166 K/mm3 (150-400); RED BLOOD CELL COUNT 5.39 M/mm3 (4.10-5.30); WHITE BLOOD CELL COUNT,WBC 6.79 K/mm3 (3.9-11.3)
[2024-06-15 07:11] LABS: A/G RATIO 0.9 (1-2); ALBUMIN 3.2 g/dl (3.4-5.0); BILIRUBIN TOTAL 0.7 mg/dL (0.2-1.0); BUN/CREATININE RATIO 18.2 (14-18); C-REACTIVE PROTEIN 1.24 mg/dL (<0.30); CALCIUM 9.1 mg/dL (8.5-10.1); CREATININE 1.1 mg/dL (0.55-1.02); EST CRCL DRUG DOSING (CG) 56.13 mL/min; PROTEIN TOTAL,TP 6.9 g/dl (6.4-8.2)
[2024-06-15 10:35] VITALS: BP 116/69; PULSE 95
== END 2024-06-15 10:25 | DRG 189 ==
LOC: JD.ED 11:31 → JD.MS 15:20
PROVIDERS: ADMIT Internal Medicine; ATTEND Internal Medicine
PROC: 4A033R1 Measurement of Arterial Saturation, Peripheral, Percutaneous Approach (ICD-10-PCS; principal; 2024-06-12)
DX: J96.02 Acute respiratory failure with hypercapnia (principal); J96.01 Acute respiratory failure with hypoxia; J98.11 Atelectasis; N39.0 Urinary tract infection, site not specified; G82.20 Paraplegia, unspecified; J44.9 Chronic obstructive pulmonary disease, unspecified; Z66 Do not resuscitate; G47.30 Sleep apnea, unspecified; K59.09 Other constipation; N31.9 Neuromuscular dysfunction of bladder, unspecified; G43.909 Migraine, unspecified, not intractable, without status migrainosus; F41.9 Anxiety disorder, unspecified; F32.A Depression, unspecified; M96.1 Postlaminectomy syndrome, not elsewhere classified; E03.9 Hypothyroidism, unspecified; Z96.0 Presence of urogenital implants; I10 Essential (primary) hypertension; Z97.8 Presence of other specified devices; Z79.51 Long term (current) use of inhaled steroids; Z87.81 Personal history of (healed) traumatic fracture; Z98.890 Other specified postprocedural states; E66.9 Obesity, unspecified; Z90.89 Acquired absence of other organs; Z88.8 Allergy status to other drugs, medicaments and biological substances; Z79.899 Other long term (current) drug therapy; Z79.890 Hormone replacement therapy; Z90.710 Acquired absence of both cervix and uterus; Z68.31 Body mass index [BMI] 31.0-31.9, adult
CPT/HCPCS: 0241U; 36415; 36600; 71045; 80053; 80202; 81001; 82803; 82947; 83605; 83880; 84484; 85007; 85027; 85379; 85610; 86140; 87040; 87086; 87154; 87641; 93005; 93306; 94640; 94760; 94761; 87077; 93010; 99285; A9270-GY; J0696; J1650; J1815; J1940; J2919; J3372; J3490; J7620-GY

== ENCOUNTER 2024-07-24 10:05 | Emergency (ER) | payer MEDICAID ==
[2024-07-24] MEDS: Sodium Chloride 0.9% 500 ML IV ONE (10:34)
[2024-07-24] MEDS ORDERED: Sodium Chloride 0.9% 10 ML Syringe FLUSH PRN (10:52)
[2024-07-24 11:14] LABS: BASOPHILS ABSOLUTE AUTO 0.1 K/mm3 (0.0-0.2); BASOPHILS PERCENT AUTO 0.8 % (0.0-1.0); EOSINOPHILS ABSOLUTE AUTO 0.3 K/mm3 (0.0-0.4); EOSINOPHILS PERCENT AUTO 4.3 % (0.0-6.0); HEMATOCRIT 47.3 % (37.0-47.0); HEMOGLOBIN 14.1 gm/dl (12.0-16.0); IMMATURE GRAN ABSOLUTE AUTO 0.06 K/mm3 (0.00-0.05); LYMPHOCYTES ABSOLUTE AUTO 1.1 K/mm3 (1.0-4.8); LYMPHOCYTES PERCENT AUTO 18.2 % (24.0-44.0); MEAN CORPUSCULAR HEMOGLOBIN 28.5 pg (28.0-32.0); MEAN CORPUSCULAR HGB CONC 29.8 g/dl (32.0-36.0); MEAN CORPUSCULAR VOLUME 95.6 fl (83.0-99.0); MEAN PLATELET VOLUME 10.7 fl (9.4-12.3); MONOCYTES ABSOLUTE AUTO 0.8 K/mm3 (0.0-0.8); MONOCYTES PERCENT AUTO 12.1 % (0.0-8.0); NEUTROPHILS PERCENT AUTO 63.6 % (41.0-71.0); PLATELET COUNT,PLT 174 K/mm3 (150-400); RED BLOOD CELL COUNT 4.95 M/mm3 (4.10-5.30); WHITE BLOOD CELL COUNT,WBC 6.27 K/mm3 (3.9-11.3)
[2024-07-24 11:30] LABS: LACTIC ACID 1.8 mmol/L (0.4-2.0)
[2024-07-24 11:31] LABS: A/G RATIO 0.8 (1-2); ALBUMIN 3.1 g/dl (3.4-5.0); ANION GAP 12.6 (5-15); BILIRUBIN TOTAL 0.6 mg/dL (0.2-1.0); BUN/CREATININE RATIO 11.3 (14-18); CALCIUM 9.1 mg/dL (8.5-10.1); CREATININE 1.5 mg/dL (0.55-1.02); EST CRCL DRUG DOSING (CG) 41.16 mL/min; MAGNESIUM 1.9 mg/dL (1.8-2.4); POTASSIUM,K 4.6 mEq/L (3.5-5.1); PROTEIN TOTAL,TP 6.9 g/dl (6.4-8.2)
[2024-07-24 11:40] LABS: APPEARANCE,URINE CLOUDY (Clear); BILIRUBIN,URINE NEGATIVE (Negative); COLOR,URINE YELLOW (Yellow); GLUCOSE,URINE NEGATIVE (Negative); KETONES,URINE NEGATIVE (Negative); LEUKOCYTE ESTERASE,URINE 2+ (Negative); NITRITE,URINE NEGATIVE (Negative); OCCULT BLOOD,URINE 3+ (Negative); PROTEIN,URINE 1+ (Negative); UROBILINOGEN,URINE 0.2 (0.2-1.0)
[2024-07-24 12:04] LABS: BACTERIA,URINE FEW /hpf (FEW); EPITHELIAL CELLS,URINE 0-5 /hpf (0-5); MUCUS,URINE FEW /hpf (FEW)
[2024-07-24] MEDS: Sodium Chloride 0.9% 10 ML Syringe FLUSH PRN (12:13)
[2024-07-24] MEDS: Iopamidol 612 MG/ML 100 ML Bottle IVPUSH ONE (12:13)
[2024-07-24] MEDS ORDERED: cefTRIAXone 1 GM in Sodium Chloride 0.9% 50 ML IV ONE ×2 (14:01→15:23)
[2024-07-24] MEDS: cefTRIAXone 1 GM Vial IVPUSH ONE (15:44)
[2024-07-24 19:57] VITALS: BP 116/74; PULSE 79
== END 2024-07-24 18:30 ==
LOC: JD.ED 10:05
DX: I95.9 Hypotension, unspecified (principal); K59.00 Constipation, unspecified; N39.0 Urinary tract infection, site not specified; I10 Essential (primary) hypertension; J44.9 Chronic obstructive pulmonary disease, unspecified; E11.9 Type 2 diabetes mellitus without complications; E03.9 Hypothyroidism, unspecified; E66.9 Obesity, unspecified; F17.200 Nicotine dependence, unspecified, uncomplicated; Z90.710 Acquired absence of both cervix and uterus; Z79.51 Long term (current) use of inhaled steroids; Z79.84 Long term (current) use of oral hypoglycemic drugs; Z79.890 Hormone replacement therapy; Z79.899 Other long term (current) drug therapy; Z68.32 Body mass index [BMI] 32.0-32.9, adult
CPT/HCPCS: 36415; 71045; 74177; 80053; 81001; 83605; 83690; 83735; 84484; 85025; 87040; 87086; 87088; 87186; 87428; 93005; 96361; 96374; 99285; J0696; J7030; Q9967; 93010; 99284

== ENCOUNTER 2024-09-19 11:12 | Emergency (ER) | payer MEDICAID ==
[2024-09-19] MEDS ORDERED: Sodium Chloride 0.9% 10 ML Syringe FLUSH PRN (11:52)
[2024-09-19 11:59] LABS: HEMATOCRIT 45.6 % (37.0-47.0); HEMOGLOBIN 14.5 gm/dl (12.0-16.0); MEAN CORPUSCULAR HEMOGLOBIN 27.9 pg (28.0-32.0); MEAN CORPUSCULAR HGB CONC 31.8 g/dl (32.0-36.0); MEAN PLATELET VOLUME 10.6 fl (9.4-12.3); PLATELET COUNT,PLT 192 K/mm3 (150-400); WHITE BLOOD CELL COUNT,WBC 6.83 K/mm3 (3.9-11.3)
[2024-09-19 12:01] LABS: MEAN CORPUSCULAR VOLUME 87.7 fl (83.0-99.0)
[2024-09-19 12:13] LABS: INR 1.02; PROTHROMBIN TIME 10.8 SECONDS (9.7-12.0)
[2024-09-19] MEDS: Sodium Chloride 0.9% 1,000 ML IV STA (12:20)
[2024-09-19 12:22] LABS: A/G RATIO 0.8 (1-2); ALANINE AMINOTRANSFERASE,ALT 39 U/L (14-59); ALBUMIN 3.3 g/dl (3.4-5.0); ALKALINE PHOSPHATASE 220 U/L (46-116); ANION GAP 14.7 (5-15); ASPARTATE AMNIOTRANSFERASE,AST 41 U/L (15-37); BILIRUBIN TOTAL 0.5 mg/dL (0.2-1.0); BLOOD UREA NITROGEN,BUN 11 mg/dL (7-18); BUN/CREATININE RATIO 8.5 (14-18); C-REACTIVE PROTEIN 3.54 mg/dL (<0.30); CALCIUM 9.3 mg/dL (8.5-10.1); CARBON DIOXIDE,CO2 30 mEq/L (21-32); CHLORIDE,CL 96 mEq/L (98-107); CREATININE 1.3 mg/dL (0.55-1.02); ESTIMATED GFR 47 mL/min (>60); POTASSIUM,K 4.7 mEq/L (3.5-5.1); PROTEIN TOTAL,TP 7.7 g/dl (6.4-8.2); SODIUM,NA 136 mEq/L (136-145)
[2024-09-19 12:27] LABS: GLUCOSE RANDOM 495 mg/dL (70-99)
[2024-09-19 12:28] LABS: LACTIC ACID 2.4 mmol/L (0.4-2.0)
[2024-09-19 12:52] LABS: HEMOGLOBIN A1C 11.8 %
[2024-09-19] MEDS: Insulin Regular, Human 100 Units/ML 10 ML Vial SUBCUT ONE ×2 (12:52→16:18)
[2024-09-19 13:15] LABS: BAND PERCENT MAN 0 % (0-10); BASOPHILS PERCENT MAN 0 (0.1-1.2); EOSINOPHILS PERCENT MAN 0 % (0.7-5.8); LYMPHOCYTES % ATYPICAL MANUAL 0 %; LYMPHOCYTES PERCENT MAN 25 % (20-40); MONOCYTES PERCENT MAN 7 % (2-10)
[2024-09-19 13:17] LABS: OVALOCYTES 1+ SLIGHT; PLATELET COUNT ESTIMATE ADEQUATE; STOMATOCYTES 1+ SLIGHT; TOXIC GRANULATION 2+ MODERATE
[2024-09-19 14:06] LABS: APPEARANCE,URINE SLT CLOUDY (Clear); BILIRUBIN,URINE NEGATIVE (Negative); COLOR,URINE PINK (Yellow); GLUCOSE,URINE 2+ (Negative); KETONES,URINE NEGATIVE (Negative); LEUKOCYTE ESTERASE,URINE TRACE (Negative); NITRITE,URINE NEGATIVE (Negative); OCCULT BLOOD,URINE 3+ (Negative); PROTEIN,URINE 1+ (Negative); UROBILINOGEN,URINE 0.2 (0.2-1.0)
[2024-09-19 14:09] VITALS: BP 122/76; PULSE 81
[2024-09-19 14:23] LABS: BACTERIA,URINE MODERATE /hpf (FEW); MUCUS,URINE FEW /hpf (FEW); RBC,URINE 30-40 /hpf (0-5); SQUAMOUS EPITHELIAL CELLS,UR 0-5 /hpf (0-5); WBC,URINE 0-5 /hpf (0-5)
[2024-09-19 14:24] LABS: YEAST HYPHAE,URINE FEW (NOT SEEN)
[2024-09-19] MEDS: Albuterol/Ipratropium 3.0-0.5 MG/3 ML Neb Soln NEB ONE (15:12)
== END 2024-09-19 16:51 ==
LOC: JD.ED 11:12
DX: E11.65 Type 2 diabetes mellitus with hyperglycemia (principal); J44.9 Chronic obstructive pulmonary disease, unspecified; I10 Essential (primary) hypertension; E03.9 Hypothyroidism, unspecified; E66.9 Obesity, unspecified; Z90.710 Acquired absence of both cervix and uterus; Z88.8 Allergy status to other drugs, medicaments and biological substances; Z79.4 Long term (current) use of insulin; Z79.51 Long term (current) use of inhaled steroids; Z79.84 Long term (current) use of oral hypoglycemic drugs; Z79.890 Hormone replacement therapy; Z79.899 Other long term (current) drug therapy
CPT/HCPCS: 36415; 51702; 71045; 80053; 81001; 82010; 82947; 83036; 83605; 83880; 85007; 85027; 85610; 86140; 87040; 87086; 87154; 87428; 96360; 99285; J1815; J7030

== ENCOUNTER 2024-09-20 18:46 | Emergency (ER) | payer MEDICAID ==
[2024-09-20] MEDS ORDERED: Sodium Chloride 0.9% 10 ML Syringe FLUSH PRN (19:03)
[2024-09-20 19:08] VITALS: BP 116/77; PULSE 91
[2024-09-20 19:41] LABS: HEMATOCRIT 48.2 % (37.0-47.0); HEMOGLOBIN 15.2 gm/dl (12.0-16.0); MEAN CORPUSCULAR HEMOGLOBIN 27.8 pg (28.0-32.0); MEAN CORPUSCULAR HGB CONC 31.5 g/dl (32.0-36.0); MEAN CORPUSCULAR VOLUME 88.3 fl (83.0-99.0); MEAN PLATELET VOLUME 10.1 fl (9.4-12.3); PLATELET COUNT,PLT 199 K/mm3 (150-400); RED BLOOD CELL COUNT 5.46 M/mm3 (4.10-5.30)
[2024-09-20 20:11] LABS: INR 1.02; PROTHROMBIN TIME 10.8 SECONDS (9.7-12.0)
[2024-09-20 20:13] LABS: BAND PERCENT MAN 0 % (0-10); BASOPHILS PERCENT MAN 0 (0.1-1.2); EOSINOPHILS PERCENT MAN 0 % (0.7-5.8); LYMPHOCYTES % ATYPICAL MANUAL 0 %; LYMPHOCYTES PERCENT MAN 29 % (20-40); MONOCYTES PERCENT MAN 0 % (2-10)
[2024-09-20 20:15] LABS: PLATELET COUNT ESTIMATE ADEQUATE; POIKILOCYTOSIS 1+ SLIGHT; TEARDROP CELLS 1+ SLIGHT
[2024-09-20] MEDS: Acetaminophen 325 MG Tab PO ONE (20:25)
[2024-09-20 20:26] LABS: APPEARANCE,URINE CLEAR (Clear); BILIRUBIN,URINE NEGATIVE (Negative); COLOR,URINE YELLOW (Yellow); GLUCOSE,URINE 1+ (Negative); KETONES,URINE NEGATIVE (Negative); LEUKOCYTE ESTERASE,URINE 1+ (Negative); NITRITE,URINE POSITIVE (Negative); OCCULT BLOOD,URINE NEGATIVE (Negative); PROTEIN,URINE 1+ (Negative); UROBILINOGEN,URINE 0.2 (0.2-1.0)
[2024-09-20 20:27] LABS: A/G RATIO 0.9 (1-2); ALBUMIN 3.5 g/dl (3.4-5.0); ANION GAP 13.1 (5-15); BILIRUBIN TOTAL 0.6 mg/dL (0.2-1.0); BUN/CREATININE RATIO 9.2 (14-18); C-REACTIVE PROTEIN 2.57 mg/dL (<0.30); CALCIUM 9.2 mg/dL (8.5-10.1); CREATININE 1.3 mg/dL (0.55-1.02); EST CRCL DRUG DOSING (CG) 47.49 mL/min; POTASSIUM,K 4.1 mEq/L (3.5-5.1); PROTEIN TOTAL,TP 7.6 g/dl (6.4-8.2)
[2024-09-20 20:28] LABS: BACTERIA,URINE FEW /hpf (FEW); MUCUS,URINE FEW /hpf (FEW); RBC,URINE 0-5 /hpf (0-5)
[2024-09-20 20:50] LABS: LACTIC ACID 1.8 mmol/L (0.4-2.0)
[2024-09-20] MEDS: Pregabalin 75 MG Cap PO ONE (22:40)
[2024-09-20] MEDS: metFORMIN 500 MG Tab PO ONE (22:40)
[2024-09-20] MEDS: Mirtazapine 30 MG Tab PO ONE (22:40)
[2024-09-20] MEDS: Rosuvastatin 10 MG Tab PO ONE (22:40)
[2024-09-20] MEDS: tiZANidine 4 MG Tab PO ONE (22:40)
[2024-09-20] MEDS: Insulin Lispro 100 Unit/ML 3 ML KwikPen SUBCUT ONE (22:41)
[2024-09-20] MEDS: Insulin Glargine,Human Rec. Analog 100 Units/ML 3 ML Pen SUBCUT ONE (22:44)
[2024-09-20] MEDS: VANCOmycin 2 GM/400 ML 2 GM in Premix Bag 1 BAG IV ONE (22:45)
[2024-09-21] MEDS ORDERED: Insulin Glargine,Human Rec. Analog 100 Units/ML 3 ML Pen SUBCUT SCH (21:00)
== END 2024-09-21 10:00 | disposition home or self-care (01) ==
LOC: JD.ED 18:46
DX: E11.65 Type 2 diabetes mellitus with hyperglycemia (principal); I10 Essential (primary) hypertension; J44.9 Chronic obstructive pulmonary disease, unspecified; E03.9 Hypothyroidism, unspecified; E66.9 Obesity, unspecified; Z68.31 Body mass index [BMI] 31.0-31.9, adult; Z90.710 Acquired absence of both cervix and uterus; Z88.8 Allergy status to other drugs, medicaments and biological substances; Z79.4 Long term (current) use of insulin; Z79.51 Long term (current) use of inhaled steroids; Z79.84 Long term (current) use of oral hypoglycemic drugs; Z79.890 Hormone replacement therapy; Z79.899 Other long term (current) drug therapy
CPT/HCPCS: 36415; 71045; 80053; 81001; 82947; 83605; 85007; 85027; 85610; 86140; 87040; 87086; 87088; 87186; 96365; 96366; 99283; A9270; J1815; J3372

== ENCOUNTER 2024-12-13 22:46 | Emergency (ER) | payer MEDICAID ==
[2024-12-13 23:00] VITALS: PULSE 88
[2024-12-13 23:25] LABS: BASOPHILS PERCENT AUTO 0.5 % (0.0-1.0); EOSINOPHILS ABSOLUTE AUTO 0.4 K/mm3 (0.0-0.4); EOSINOPHILS PERCENT AUTO 4.5 % (0.0-6.0); HEMATOCRIT 45.6 % (37.0-47.0); HEMOGLOBIN 14.1 gm/dl (12.0-16.0); IMMATURE GRAN ABSOLUTE AUTO 0.05 K/mm3 (0.00-0.05); IMMATURE GRAN PERCENT AUTO 0.6 % (0.0-0.4); LYMPHOCYTES ABSOLUTE AUTO 2.5 K/mm3 (1.0-4.8); LYMPHOCYTES PERCENT AUTO 29.4 % (24.0-44.0); MEAN CORPUSCULAR HEMOGLOBIN 27.8 pg (28.0-32.0); MEAN CORPUSCULAR HGB CONC 30.9 g/dl (32.0-36.0); MEAN CORPUSCULAR VOLUME 89.8 fl (83.0-99.0); MEAN PLATELET VOLUME 10.4 fl (9.4-12.3); MONOCYTES ABSOLUTE AUTO 0.6 K/mm3 (0.0-0.8); MONOCYTES PERCENT AUTO 7.5 % (0.0-8.0); NEUTROPHILS ABSOLUTE AUTO 4.8 K/mm3 (1.8-7.7); NEUTROPHILS PERCENT AUTO 57.5 % (41.0-71.0); PLATELET COUNT,PLT 206 K/mm3 (150-400); RED BLOOD CELL COUNT 5.08 M/mm3 (4.10-5.30); WHITE BLOOD CELL COUNT,WBC 8.37 K/mm3 (3.9-11.3)
[2024-12-13] MEDS: Sodium Chloride 0.9% 1,000 ML IV ONE (23:27)
[2024-12-13 23:32] LABS: INR 1.03; PROTHROMBIN TIME 10.9 SECONDS (9.7-12.0)
[2024-12-13 23:39] LABS: A/G RATIO 0.9 (1-2); ALBUMIN 3.4 g/dl (3.4-5.0); ANION GAP 6.9 (5-15); BILIRUBIN TOTAL 0.5 mg/dL (0.2-1.0); BUN/CREATININE RATIO 13.6 (14-18); CALCIUM 9.2 mg/dL (8.5-10.1); CREATININE 1.1 mg/dL (0.55-1.02); EST CRCL DRUG DOSING (CG) 56.13 mL/min; MAGNESIUM 1.7 mg/dL (1.8-2.4); POTASSIUM,K 4.9 mEq/L (3.5-5.1); PROTEIN TOTAL,TP 7.2 g/dl (6.4-8.2)
[2024-12-13 23:54] LABS: BILIRUBIN,URINE 1+ (Negative); COLOR,URINE DARK YELLOW (Yellow); GLUCOSE,URINE NEGATIVE (Negative); KETONES,URINE TRACE (Negative); LEUKOCYTE ESTERASE,URINE 3+ (Negative); NITRITE,URINE NEGATIVE (Negative); OCCULT BLOOD,URINE 3+ (Negative); PH,URINE 5.5 (5.0-8.0); PROTEIN,URINE 3+ (Negative); UROBILINOGEN,URINE 0.2 (0.2-1.0)
[2024-12-13 23:55] LABS: APPEARANCE,URINE CLOUDY (Clear)
[2024-12-14 00:11] LABS: BACTERIA,URINE FEW /hpf (FEW); EPITHELIAL CELLS,URINE 0-5 /hpf (0-5); RBC,URINE >100 /hpf (0-5)
[2024-12-14 00:12] LABS: AMORPHOUS SEDIMENT,URINE FEW /hpf (NOT SEEN); MUCUS,URINE NOT SEEN /hpf (FEW)
[2024-12-14 01:29] VITALS: BP 117/76
== END 2024-12-14 01:27 | disposition home or self-care (01) ==
LOC: JD.ED 22:46
DX: R07.89 Other chest pain (principal); T83.9XXA Unspecified complication of genitourinary prosthetic device, implant and graft, initial encounter; I10 Essential (primary) hypertension; J44.9 Chronic obstructive pulmonary disease, unspecified; E11.9 Type 2 diabetes mellitus without complications; E03.9 Hypothyroidism, unspecified; E66.9 Obesity, unspecified; Z90.710 Acquired absence of both cervix and uterus; Z79.899 Other long term (current) drug therapy; Z88.8 Allergy status to other drugs, medicaments and biological substances
CPT/HCPCS: 36415; 51702; 80053; 81001; 82550; 83690; 83735; 84484; 85025; 85610; 87428; 93005; 96360; 99285; J7030; 93010; 99283

== ENCOUNTER 2025-05-05 08:53 | Inpatient (IN) | payer MEDICAID ==
[2025-05-05] MEDS: cefTRIAXone 2 GM in Water For Injection, Sterile 20 ML IVPUSH STA (09:29)
[2025-05-05] MEDS: VANCOmycin 2 GM/400 ML 2 GM in Premix Bag 1 BAG IV ONE (09:30)
[2025-05-05 09:31] LABS: BASOPHILS ABSOLUTE AUTO 0.0 K/mm3 (0.0-0.2); BASOPHILS PERCENT AUTO 0.3 % (0.0-1.0); EOSINOPHILS ABSOLUTE AUTO 0.2 K/mm3 (0.0-0.4); EOSINOPHILS PERCENT AUTO 2.1 % (0.0-6.0); IMMATURE GRAN ABSOLUTE AUTO 0.04 K/mm3 (0.00-0.05); IMMATURE GRAN PERCENT AUTO 0.5 % (0.0-0.4); LYMPHOCYTES ABSOLUTE AUTO 2.2 K/mm3 (1.0-4.8); LYMPHOCYTES PERCENT AUTO 25.3 % (24.0-44.0); MEAN PLATELET VOLUME 10.2 fl (9.4-12.3); MONOCYTES ABSOLUTE AUTO 0.7 K/mm3 (0.0-0.8); MONOCYTES PERCENT AUTO 8.2 % (0.0-8.0); NEUTROPHILS ABSOLUTE AUTO 5.5 K/mm3 (1.8-7.7); NEUTROPHILS PERCENT AUTO 63.6 % (41.0-71.0); NRBC ABSOLUTE 0.03 (0.00-0.02); NRBC PERCENT 0.3 % (0.0-0.2); PLATELET COUNT,PLT 219 K/mm3 (150-400); RED BLOOD CELL COUNT 4.95 M/mm3 (4.10-5.30); WHITE BLOOD CELL COUNT,WBC 8.70 K/mm3 (3.9-11.3)
[2025-05-05 10:02] LABS: A/G RATIO 0.8 (1-2); ALANINE AMINOTRANSFERASE,ALT 33.0 U/L (14-59); ASPARTATE AMNIOTRANSFERASE,AST 32.0 U/L (15-37); BILIRUBIN TOTAL 0.6 mg/dL (0.2-1.0); BLOOD UREA NITROGEN,BUN 16.0 mg/dL (7-18); CARBON DIOXIDE,CO2 31.0 mEq/L (21-32); CHLORIDE,CL 104.0 mEq/L (98-107); CREATINE KINASE,CK 58.0 U/L (26-192); CREATININE 1.2 mg/dL (0.55-1.02); EST CRCL DRUG DOSING (CG) 51.45 mL/min; ESTIMATED GFR 52.0 mL/min (>60); GLUCOSE RANDOM 202.0 mg/dL (70-99); POTASSIUM,K 5.2 mEq/L (3.5-5.1); PROTEIN TOTAL,TP 6.5 g/dl (6.4-8.2); SODIUM,NA 142.0 mEq/L (136-145)
[2025-05-05 10:49] LABS: APPEARANCE,URINE SLT CLOUDY (Clear); GLUCOSE,URINE 3+ (Negative); OCCULT BLOOD,URINE TRACE-INTACT (Negative)
[2025-05-05 11:18] LABS: SQUAMOUS EPITHELIAL CELLS,UR 0-5 /hpf (0-5); YEAST BUDDING,URINE MODERATE (NOT SEEN); YEAST HYPHAE,URINE FEW (NOT SEEN)
[2025-05-05] MEDS: Fluconazole/Normal Saline 200 MG in Premix Bag 1 BAG IV STA (11:53)
[2025-05-05 12:58] LABS: LACTIC ACID 1.3 mmol/L (0.4-2.0)
[2025-05-05] MEDS ORDERED: 50% Dextrose in Water 50 ML Syringe IVPUSH PRN (16:24)
[2025-05-05] MEDS: Insulin Lispro 100 Unit/ML 3 ML KwikPen SUBCUT SCH (18:46)
[2025-05-05 19:41] LABS: TSH 1.829 uIU/mL (0.358-3.74)
[2025-05-05] MEDS ORDERED: OXYCODONE PO SCH (21:00)
[2025-05-05] MEDS ORDERED: ACETAMINOPHEN PO SCH (21:00)
[2025-05-06] MEDS: Acetaminophen/oxyCODONE 325-5 MG Tab PO PRN ×2 (02:32→16:59)
[2025-05-06 07:40] LABS: BASOPHILS ABSOLUTE AUTO 0.0 K/mm3 (0.0-0.2); BASOPHILS PERCENT AUTO 0.3 % (0.0-1.0); EOSINOPHILS ABSOLUTE AUTO 0.2 K/mm3 (0.0-0.4); EOSINOPHILS PERCENT AUTO 3.0 % (0.0-6.0); IMMATURE GRAN ABSOLUTE AUTO 0.04 K/mm3 (0.00-0.05); IMMATURE GRAN PERCENT AUTO 0.7 % (0.0-0.4); LYMPHOCYTES ABSOLUTE AUTO 0.9 K/mm3 (1.0-4.8); LYMPHOCYTES PERCENT AUTO 15.6 % (24.0-44.0); MEAN PLATELET VOLUME 10.3 fl (9.4-12.3); MONOCYTES ABSOLUTE AUTO 0.5 K/mm3 (0.0-0.8); MONOCYTES PERCENT AUTO 8.2 % (0.0-8.0); NEUTROPHILS ABSOLUTE AUTO 4.1 K/mm3 (1.8-7.7); NEUTROPHILS PERCENT AUTO 72.2 % (41.0-71.0); NRBC ABSOLUTE 0.00 (0.00-0.02); NRBC PERCENT 0.0 % (0.0-0.2); PLATELET COUNT,PLT 163 K/mm3 (150-400); RED BLOOD CELL COUNT 5.02 M/mm3 (4.10-5.30); WHITE BLOOD CELL COUNT,WBC 5.72 K/mm3 (3.9-11.3)
[2025-05-06 08:01] LABS: BLOOD UREA NITROGEN,BUN 12.0 mg/dL (7-18); CARBON DIOXIDE,CO2 29.0 mEq/L (21-32); CHLORIDE,CL 110.0 mEq/L (98-107); CREATININE 0.9 mg/dL (0.55-1.02); EST CRCL DRUG DOSING (CG) 68.6 mL/min; ESTIMATED GFR 73.0 mL/min (>60); GLUCOSE RANDOM 142.0 mg/dL (70-99); POTASSIUM,K 4.6 mEq/L (3.5-5.1); SODIUM,NA 144.0 mEq/L (136-145)
[2025-05-06] MEDS: cefTRIAXone 1 GM in Water For Injection, Sterile 10 ML IVPUSH SCH (09:57)
[2025-05-06] MEDS: Mirabegron 25 MG Tab Extended Release PO SCH (09:59)
[2025-05-06] MEDS: Formoterol/Mometasone 100-5 MCG 8.8 GM Inhaler INH SCH (22:21)
[2025-05-07 04:33] LABS: BASOPHILS ABSOLUTE AUTO 0.0 K/mm3 (0.0-0.2); BASOPHILS PERCENT AUTO 0.3 % (0.0-1.0); EOSINOPHILS ABSOLUTE AUTO 0.2 K/mm3 (0.0-0.4); EOSINOPHILS PERCENT AUTO 2.2 % (0.0-6.0); IMMATURE GRAN ABSOLUTE AUTO 0.03 K/mm3 (0.00-0.05); IMMATURE GRAN PERCENT AUTO 0.4 % (0.0-0.4); LYMPHOCYTES ABSOLUTE AUTO 1.5 K/mm3 (1.0-4.8); LYMPHOCYTES PERCENT AUTO 21.5 % (24.0-44.0); MEAN PLATELET VOLUME 10.7 fl (9.4-12.3); MONOCYTES ABSOLUTE AUTO 0.7 K/mm3 (0.0-0.8); MONOCYTES PERCENT AUTO 10.8 % (0.0-8.0); NEUTROPHILS ABSOLUTE AUTO 4.4 K/mm3 (1.8-7.7); NEUTROPHILS PERCENT AUTO 64.8 % (41.0-71.0); NRBC ABSOLUTE 0.00 (0.00-0.02); NRBC PERCENT 0.0 % (0.0-0.2); PLATELET COUNT,PLT 175 K/mm3 (150-400); RED BLOOD CELL COUNT 5.41 M/mm3 (4.10-5.30); WHITE BLOOD CELL COUNT,WBC 6.73 K/mm3 (3.9-11.3)
[2025-05-07 04:51] LABS: BLOOD UREA NITROGEN,BUN 13.0 mg/dL (7-18); CARBON DIOXIDE,CO2 28.0 mEq/L (21-32); CHLORIDE,CL 109.0 mEq/L (98-107); CREATININE 1.0 mg/dL (0.55-1.02); EST CRCL DRUG DOSING (CG) 61.74 mL/min; ESTIMATED GFR 64.0 mL/min (>60); GLUCOSE RANDOM 139.0 mg/dL (70-99); SODIUM,NA 145.0 mEq/L (136-145)
[2025-05-07 05:40] LABS: POTASSIUM,K 4.1 mEq/L (3.5-5.1)
[2025-05-07] MEDS ORDERED: cefTRIAXone 1 GM in Water For Injection, Sterile 10 ML IVPUSH SCH (10:00)
[2025-05-07] MEDS: Tiotropium Bromide 4 GM Inhalation Spray (2.5mcg/1 dose; 10 doses) INH SCH (11:57)
[2025-05-08 07:47] LABS: BLOOD UREA NITROGEN,BUN 11.0 mg/dL (7-18); CARBON DIOXIDE,CO2 20.0 mEq/L (21-32); CHLORIDE,CL 102.0 mEq/L (98-107); CREATININE 0.9 mg/dL (0.55-1.02); EST CRCL DRUG DOSING (CG) 68.6 mL/min; ESTIMATED GFR 73.0 mL/min (>60); GLUCOSE RANDOM 102.0 mg/dL (70-99); POTASSIUM,K 4.2 mEq/L (3.5-5.1); SODIUM,NA 140.0 mEq/L (136-145)
[2025-05-08 07:51] LABS: BASOPHILS ABSOLUTE AUTO 0.0 K/mm3 (0.0-0.2); BASOPHILS PERCENT AUTO 0.4 % (0.0-1.0); EOSINOPHILS ABSOLUTE AUTO 0.0 K/mm3 (0.0-0.4); EOSINOPHILS PERCENT AUTO 0.4 % (0.0-6.0); IMMATURE GRAN ABSOLUTE AUTO 0.06 K/mm3 (0.00-0.05); IMMATURE GRAN PERCENT AUTO 0.6 % (0.0-0.4); LYMPHOCYTES ABSOLUTE AUTO 1.7 K/mm3 (1.0-4.8); LYMPHOCYTES PERCENT AUTO 17.9 % (24.0-44.0); MEAN PLATELET VOLUME 9.9 fl (9.4-12.3); MONOCYTES ABSOLUTE AUTO 0.8 K/mm3 (0.0-0.8); MONOCYTES PERCENT AUTO 7.9 % (0.0-8.0); NEUTROPHILS ABSOLUTE AUTO 6.9 K/mm3 (1.8-7.7); NEUTROPHILS PERCENT AUTO 72.8 % (41.0-71.0); NRBC ABSOLUTE 0.00 (0.00-0.02); NRBC PERCENT 0.0 % (0.0-0.2); PLATELET COUNT,PLT 227 K/mm3 (150-400); RED BLOOD CELL COUNT 5.75 M/mm3 (4.10-5.30); WHITE BLOOD CELL COUNT,WBC 9.48 K/mm3 (3.9-11.3)
[2025-05-08 10:47] LABS: BASE EXCESS ARTERIAL -6.4 (-2-2.0); BICARBONATE,ARTERIAL 18.2 meq/L (22.0-26.0); O2 SATURATION ARTERIAL 92.8 % (96.0-97.0); PCO2 ARTERIAL 33.0 mmHg (35.0-45.0); PO2 ARTERIAL 68.0 mmHg (80.0-100.0)
[2025-05-08] MEDS ORDERED: Sodium Chloride 0.9% 10 ML Syringe FLUSH PRN (11:18)
[2025-05-08 13:41] LABS: PHOSPHORUS 4.3 mg/dL (2.6-4.7)
[2025-05-08 13:42] LABS: CHOLESTEROL HDL 39 mg/dL (40-59); CHOLESTEROL LDL DIRECT 35 mg/dL (<100); CHOLESTEROL TOTAL 104 mg/dL (<200)
[2025-05-08 14:22] LABS: OSMOLALITY,SERUM 302.0 mosm/kg (280-300)
[2025-05-08 16:04] LABS: APPEARANCE,URINE CLEAR (Clear); GLUCOSE,URINE 2+ (Negative); OCCULT BLOOD,URINE TRACE-LYSED (Negative)
[2025-05-08] MEDS: Lactulose Soln 10 GM/15 ML 30 ML UD Cup PO SCH (16:28)
[2025-05-08 16:39] LABS: EPITHELIAL CELLS,URINE 0-5 /hpf (0-5)
[2025-05-08] MEDS: Sodium Chloride 0.9% 10 ML Syringe FLUSH SCH (23:22)
[2025-05-09 10:06] LABS: BASOPHILS ABSOLUTE AUTO 0.0 K/mm3 (0.0-0.2); BASOPHILS PERCENT AUTO 0.3 % (0.0-1.0); EOSINOPHILS ABSOLUTE AUTO 0.0 K/mm3 (0.0-0.4); EOSINOPHILS PERCENT AUTO 0.4 % (0.0-6.0); IMMATURE GRAN ABSOLUTE AUTO 0.04 K/mm3 (0.00-0.05); IMMATURE GRAN PERCENT AUTO 0.5 % (0.0-0.4); LYMPHOCYTES ABSOLUTE AUTO 1.7 K/mm3 (1.0-4.8); LYMPHOCYTES PERCENT AUTO 20.7 % (24.0-44.0); MEAN PLATELET VOLUME 9.9 fl (9.4-12.3); MONOCYTES ABSOLUTE AUTO 0.5 K/mm3 (0.0-0.8); MONOCYTES PERCENT AUTO 5.8 % (0.0-8.0); NEUTROPHILS ABSOLUTE AUTO 5.8 K/mm3 (1.8-7.7); NEUTROPHILS PERCENT AUTO 72.3 % (41.0-71.0); NRBC ABSOLUTE 0.00 (0.00-0.02); NRBC PERCENT 0.0 % (0.0-0.2); PLATELET COUNT,PLT 221 K/mm3 (150-400); RED BLOOD CELL COUNT 5.68 M/mm3 (4.10-5.30); WHITE BLOOD CELL COUNT,WBC 7.99 K/mm3 (3.9-11.3)
[2025-05-09 10:23] LABS: A/G RATIO 0.8 (1-2); ALANINE AMINOTRANSFERASE,ALT 37.0 U/L (14-59); ASPARTATE AMNIOTRANSFERASE,AST 51.0 U/L (15-37); BILIRUBIN TOTAL 0.8 mg/dL (0.2-1.0); BLOOD UREA NITROGEN,BUN 15.0 mg/dL (7-18); CARBON DIOXIDE,CO2 17.0 mEq/L (21-32); CHLORIDE,CL 106.0 mEq/L (98-107); CREATININE 1.2 mg/dL (0.55-1.02); EST CRCL DRUG DOSING (CG) 51.45 mL/min; ESTIMATED GFR 52.0 mL/min (>60); GLUCOSE RANDOM 133.0 mg/dL (70-99); POTASSIUM,K 3.9 mEq/L (3.5-5.1); PROTEIN TOTAL,TP 7.6 g/dl (6.4-8.2); SODIUM,NA 144.0 mEq/L (136-145)
[2025-05-10 14:15] VITALS: BP 134/83; PULSE 90
== END 2025-05-10 13:49 | DRG 698 ==
LOC: JD.ED 08:53 → JD.MS 11:28
PROVIDERS: ADMIT Family Medicine; ATTEND Family Medicine
PROC: 4A033R1 Measurement of Arterial Saturation, Peripheral, Percutaneous Approach (ICD-10-PCS; principal; 2025-05-08)
DX: T83.511A Infection and inflammatory reaction due to indwelling urethral catheter, initial encounter (principal); G92.8 Other toxic encephalopathy; J96.01 Acute respiratory failure with hypoxia; E87.20 Acidosis, unspecified; G82.20 Paraplegia, unspecified; R47.01 Aphasia; Z66 Do not resuscitate; N39.0 Urinary tract infection, site not specified; J44.9 Chronic obstructive pulmonary disease, unspecified; E11.9 Type 2 diabetes mellitus without complications; E03.9 Hypothyroidism, unspecified; H54.7 Unspecified visual loss; I10 Essential (primary) hypertension; G47.30 Sleep apnea, unspecified; K59.09 Other constipation; G43.909 Migraine, unspecified, not intractable, without status migrainosus; F41.9 Anxiety disorder, unspecified; F32.A Depression, unspecified; E66.9 Obesity, unspecified; E89.0 Postprocedural hypothyroidism; Y84.6 Urinary catheterization as the cause of abnormal reaction of the patient, or of later complication, without mention of misadventure at the time of the procedure; G89.4 Chronic pain syndrome; N31.9 Neuromuscular dysfunction of bladder, unspecified; E87.5 Hyperkalemia; M62.838 Other muscle spasm; E11.65 Type 2 diabetes mellitus with hyperglycemia; G93.89 Other specified disorders of brain; Z68.33 Body mass index [BMI] 33.0-33.9, adult; Z98.890 Other specified postprocedural states; Z90.89 Acquired absence of other organs; Z90.710 Acquired absence of both cervix and uterus; Z88.8 Allergy status to other drugs, medicaments and biological substances; Z79.899 Other long term (current) drug therapy; Z79.51 Long term (current) use of inhaled steroids; Z79.84 Long term (current) use of oral hypoglycemic drugs; Z79.52 Long term (current) use of systemic steroids; Z79.4 Long term (current) use of insulin
CPT/HCPCS: 36415; 80053; 81001; 82550; 83605; 83735; 85025; 86140; 87040 ×2; 87086; 96365; 96366; 96375; 99285; A4216; J0696; J3375; J7030 ×2; 36600; 70450; 70450-26; 71045; 71045-26; 80048; 80061; 82140; 82607; 82803; 82947; 83036; 83930; 84100; 84443; 87106; 93005; 94640; 94760; 94761; 99223; 99232; 99239; A9270-GY; J1450; J1650